=== PATIENT | female | born 1955 | race Caucasian/White ===

== ENCOUNTER → 2020-06-19 12:25 | Outpatient (BNVA) | payer MEDICAID, SELFPAY | PROVIDERS: Visit Provider Physician Assistant | DX: Z86.010 Personal history of colon polyps (principal) | CPT/HCPCS: 99213 ==

== ENCOUNTER 2020-11-30 08:42 | Outpatient (REF) | payer MEDICAID, SELFPAY ==
--- NOTE | ~2020-11-30 | CT_ITS ---
EXAMINATION: CT ABDOMEN AND PELVIS WITH CONTRAST CLINICAL INFORMATION: Epigastric pain and weight loss COMPARISON: CT August 2018 TECHNIQUE: Multidetector volumetric images were obtained from the superior aspect of the liver through the pubic symphysis following administration 85 mL of Omnipaque 350 intravenous contrast. Sagittal and coronal reformatted images were obtained on the technologist's workstation. Oral contrast: No This CT examination was performed using dose optimization techniques as appropriate, variously including the following: *Automated exposure control *Adjustment of mA and/or kV according to patient size (this includes techniques or standardized protocols for targeted exams where dose is matched to indication/reason for exam; i.e. extremities or head) *Use of iterative reconstruction technique DLP: 383 mGy-cm FINDINGS: LUNG BASES: Minimal pleural thickening in the posterior aspect of the left lower lobe likely postinflammatory without clinical significance. LIVER, GALLBLADDER, AND BILIARY TREE: The liver parenchyma is normal no masses. Normal density. No change. No intrahepatic or extrahepatic biliary dilatation. Gallbladder normal. PANCREAS: Unremarkable. SPLEEN: Unremarkable. ADRENAL GLANDS: Unremarkable. KIDNEYS AND URETERS: The kidneys are normal in size, shape, and attenuation. No hydronephrosis, hydroureter, or calculi seen. No perinephric stranding. BLADDER: Unremarkable. GASTROINTESTINAL TRACT: Appendix not visualized.: Normal. Small bowel normal. Stomach normal. ABDOMINAL WALL: No significant hernia is appreciated. LYMPH NODES: Normal. VASCULAR: Mild calcific atherosclerotic disease unchanged PELVIC VISCERA: Unremarkable. OSSEOUS STRUCTURES: Stable postoperative changes related to lower lumbar sacral fusion unchanged. Mild multilevel spondylosis of the visualized lumbar sacral spine above the level of fusion. CT/CT abdomen pelvis w con IMPRESSION: No acute abnormality or explanation for patient's reported symptoms. Mild calcific atherosclerotic disease. Postoperative changes of the lumbar sacral spine with spondylosis
[2020-11-30] MEDS: Barium Sulfate Oral (Berry) 450 ML ORAL.SUSP 900 ML PO (11:54)
== END 2020-11-30 08:43 | disposition home or self-care (01) ==
LOC: HO.CT 08:42
PROVIDERS: Visit Provider Internal Medicine
DX: R10.13 Epigastric pain (principal)
CPT/HCPCS: 74177; Q9967

== ENCOUNTER → 2021-02-22 08:31 | Outpatient (BNVA) | payer MEDICAID, SELFPAY | PROVIDERS: PCP Internal Medicine; Referring Provider Internal Medicine; Visit Provider Physician Assistant | DX: Z12.11 Encounter for screening for malignant neoplasm of colon (principal); K59.09 Other constipation; K21.9 Gastro-esophageal reflux disease without esophagitis; Z86.010 Personal history of colon polyps | CPT/HCPCS: 99202 ==

== ENCOUNTER 2021-05-29 08:35 | Outpatient (REF) | payer MEDICAID, SELFPAY ==
--- NOTE | ~2021-05-29 | US_ITS ---
EXAMINATION: US ABDOMEN COMPLETE CLINICAL INFORMATION: Epigastric pain. COMPARISON: CT abdomen and pelvis 11/30/2020. Ultrasound abdomen 09/25/2017. TECHNIQUE: Real-time imaging of the abdominal viscera. FINDINGS: PANCREAS: Normal. ABDOMINAL AORTA: The proximal, mid, and distal segments are normal in caliber. INFERIOR VENA CAVA: Visualized portions are normal. LIVER: The liver is normal in size. The liver contour is normal. Liver echotexture is increased probably representing fatty infiltration. No focal hepatic lesion. There is no intrahepatic biliary duct dilatation seen. GALLBLADDER: Normal. The gallbladder is physiologically distended without evidence of stones, sludge, polyps, wall thickening or pericholecystic fluid. COMMON BILE DUCT: Normal in caliber measuring 0.3 cm in diameter. RIGHT KIDNEY: Normal. No hydronephrosis. No renal calculi or focal parenchymal lesions. The kidney measures 12.4 cm in maximum dimension. LEFT KIDNEY: Normal. No hydronephrosis. No renal calculi or focal parenchymal lesions. The kidney measures 12.1 cm in maximum dimension. SPLEEN: Normal. The spleen measures 12.3 cm in maximum dimension. FREE FLUID: None. US/US abdomen complete IMPRESSION: Echogenic liver suggestive of fatty infiltration otherwise unremarkable exam.
== END 2021-05-29 08:36 | disposition home or self-care (01) ==
LOC: HO.US 08:35
PROVIDERS: PCP Internal Medicine; Visit Provider Student in an Organized Health Care Education/Training Program
DX: R10.13 Epigastric pain (principal)
CPT/HCPCS: 76700

== ENCOUNTER 2021-08-09 10:28 | Outpatient (REF) | payer MEDICAID, SELFPAY ==
--- NOTE | ~2021-08-09 | US_ITS ---
EXAMINATION: US PELVIS LIMITED (BLADDER) CLINICAL INFORMATION: Urinary retention. Need postvoid bladder volume. COMPARISON: CT abdomen and pelvis 11/30/2020. TECHNIQUE: Real-time imaging of the bladder. FINDINGS: BLADDER: Well distended and normal. Bilateral ureteral jets are not demonstrated. No intraluminal filling defects are detected. Prevoid bladder volume is 187.7 mL. Postvoid bladder volume is 16.2 mL. US/US bladder IMPRESSION: Normal bladder ultrasound with a minimal post void residual.
== END 2021-08-09 10:29 | disposition home or self-care (01) ==
LOC: HO.US 10:28
PROVIDERS: PCP Internal Medicine; Visit Provider Internal Medicine
DX: R33.9 Retention of urine, unspecified (principal)
CPT/HCPCS: 76857

== ENCOUNTER 2021-10-23 16:45 | Emergency (ER) | payer OTHER, MEDICAID, SELFPAY ==
--- NOTE | ~2021-10-23 | XR_ITS ---
EXAMINATION: XR ABDOMEN KUB CLINICAL INDICATION: Constipation COMPARISON: CT abdomen 11/30/2020 TECHNIQUE: AP view of the abdomen. FINDINGS: There is a moderate stool burden in the colon. The bowel gas pattern is normal with no evidence of ileus or obstruction. No unusual soft tissue calcifications are noted. There is been fixation in the spine with pedicular screws at L4 and S1. Disc spacers are present at the L4-L5 and L5-S1 levels. XR/XR KUB IMPRESSION: Moderate stool burden without evidence of obstruction. Status post lumbar spine surgery.
[2021-10-23 18:03] VITALS: BP 147/81; PULSE 80; RESP 18; TEMP 36.8; O2SAT 99; BMI 25.7
[2021-10-23 19:29] LABS: MANUAL DIFF FLAG NO
[2021-10-23 19:31] LABS: Appearance Urine CLEAR; Basophils Percent Auto 0.2 % (0-2); Color Urine YELLOW; Eosinophils Absolute Auto 0.4 X10*3/uL (0.0-0.4); Eosinophils Percent Auto 3.2 % (0-4); Glucose Urine UA NEG (NEG); Hematocrit 39.4 % (37.0-47.0); Hemoglobin 12.7 g/dl (12.0-16.0); Imm Gran Abs Auto 0.03 X10*3/uL (0.00-0.03); Imm Gran Pct Auto 0.2 % (0.0-0.4); Leukocyte Esterase Urine NEG (NEG); Lymphocytes Absolute Auto 4.4 X10*3/uL (1.2-4.9); Lymphocytes Percent Auto 36.6 % (20-40); Mean Corpuscular HGB Conc 32.2 g/dl (31.0-35.0); Mean Corpuscular Hemoglobin 27.6 pg (27.0-33.0); Mean Corpuscular Volume 85.7 fL (80.0-98.0); Mean Platelet Volume 9.7 fL (9.4-12.3); Monocytes Absolute Auto 0.7 X10*3/uL (0.1-1.2); Monocytes Percent Auto 5.4 % (2-11); Neutrophils Absolute Auto 6.5 x10*3/uL (2.0-8.3); Neutrophils Percent Auto 54.4 % (45-73); Nitrite Urine NEG (NEG); Platelet Count 298 X10*3/uL (160-400); Red Cell Distribution Width 13.3 % (11.0-16.0); Specific Gravity - Urine >= 1.030 (1.005-1.025); UACC Culture Trigger NO; Urine Blood TRACE (NEG); Urine Ketones 5 MG/DL (NEG); Urine Protein 2+ MG/DL (NEG-TRACE)
[2021-10-23 19:45] LABS: Anion Gap 13 (12-20); Blood Urea Nitrogen 12 mg/dL (9-16); Carbon Dioxide 28 mmol/L (22-29); Chloride 102 mmol/L (96-108); Creatinine Clr Calc Pharmacy 65.6; Estimated Glomerular Filt Rate > 60; Glucose Random 174 mg/dL (60-115); Lipase 45 U/L (8-78); Potassium 4.1 mmol/L (3.3-5.1); Sodium 139 mmol/L (135-145)
[2021-10-23 19:49] LABS: COVID-19 Test Negative (Negative)
[2021-10-23 19:52] LABS: RBC Urine 0-2 /HPF (0); Squamous Epithelial Cell Urine 1+ /LPF; WBC Urine 0-2 /HPF (0-4)
[2021-10-23 19:53] LABS: Mucus Urine 3+ /LPF
== END 2021-10-23 21:12 | disposition left against medical advice (07) ==
PROVIDERS: Emergency Provider Emergency Medicine
DX: R11.10 Vomiting, unspecified (principal); R10.9 Unspecified abdominal pain; R51.9 Headache, unspecified; Z20.822 Contact with and (suspected) exposure to COVID-19; Z79.899 Other long term (current) drug therapy
CPT/HCPCS: 36415; 74018; 80048; 81001; 83690; 85025; 87635; 99282; 99283

== ENCOUNTER 2021-10-25 14:44 | Emergency (ER) | payer OTHER, SELFPAY ==
--- NOTE | ~2021-10-25 | CT_ITS ---
EXAMINATION: CT ABDOMEN AND PELVIS WITH CONTRAST CLINICAL INFORMATION: Left lower quadrant pain, bloated, constipation. Rule out bowel obstruction. COMPARISON: None TECHNIQUE: Multidetector volumetric images were obtained from the superior aspect of the liver through the pubic symphysis following administration 85 mL of Omnipaque 350 intravenous contrast. Sagittal and coronal reformatted images were obtained on the technologist's workstation. Oral contrast: No This CT examination was performed using dose optimization techniques as appropriate, variously including the following: *Automated exposure control *Adjustment of mA and/or kV according to patient size (this includes techniques or standardized protocols for targeted exams where dose is matched to indication/reason for exam; i.e. extremities or head) *Use of iterative reconstruction technique DLP: 570 mGy-cm FINDINGS: LUNG BASES: Minimal atelectatic changes seen in left lung base and right middle lobe. Heart size is normal. LIVER, GALLBLADDER, AND BILIARY TREE: The liver is normal in size, shape, and attenuation. No focal hepatic lesion or biliary ductal dilatation is present. The gallbladder is unremarkable with no evidence of radiopaque gallstones, gallbladder wall thickening, or obvious pericholecystic inflammatory changes. PANCREAS: Unremarkable. SPLEEN: Unremarkable. ADRENAL GLANDS: There is a 4 mm nodule right adrenal gland. The left adrenal gland is unremarkable. KIDNEYS AND URETERS: The kidneys are normal in size, lobulated shape, and attenuation. There is bilateral extrarenal kidney pelvises, hydroureter, or calculi seen. There is mild perinephric stranding. BLADDER: Unremarkable. GASTROINTESTINAL TRACT: The small and large bowel are unremarkable. The appendix is unremarkable. ABDOMINAL WALL: No significant hernia is appreciated. LYMPH NODES: Normal. VASCULAR: Unremarkable. PELVIC VISCERA: Unremarkable. OSSEOUS STRUCTURES: There is L4-S1 disc hardware for fusion as well as posterior hardware for stabilization. No aggressive lytic or sclerotic process seen. CT/CT abdomen pelvis w con IMPRESSION: No acute intra-abdominal process seen. Suspect small right adrenal 4 mm lesion. Fleischner guidelines were followed.
[2021-10-25 14:47] VITALS: BP 195/95; PULSE 101; RESP 18; TEMP 36.8; O2SAT 95; BMI 27.1
[2021-10-25 15:10] LABS: Basophils Absolute Auto 0.1 X10*3/uL (0.0-0.2); Basophils Percent Auto 0.3 % (0-2); Eosinophils Absolute Auto 0.3 X10*3/uL (0.0-0.4); Eosinophils Percent Auto 1.9 % (0-4); Hematocrit 42.1 % (37.0-47.0); Hemoglobin 13.3 g/dl (12.0-16.0); Imm Gran Abs Auto 0.07 X10*3/uL (0.00-0.03); Imm Gran Pct Auto 0.5 % (0.0-0.4); Lymphocytes Absolute Auto 5.1 X10*3/uL (1.2-4.9); Lymphocytes Percent Auto 34.2 % (20-40); MANUAL DIFF FLAG SCAN; Mean Corpuscular HGB Conc 31.6 g/dl (31.0-35.0); Mean Corpuscular Hemoglobin 27.3 pg (27.0-33.0); Mean Corpuscular Volume 86.4 fL (80.0-98.0); Mean Platelet Volume 9.8 fL (9.4-12.3); Monocytes Absolute Auto 0.9 X10*3/uL (0.1-1.2); Monocytes Percent Auto 5.8 % (2-11); Neutrophils Absolute Auto 8.6 x10*3/uL (2.0-8.3); Neutrophils Percent Auto 57.3 % (45-73); Platelet Count 335 X10*3/uL (160-400); Red Blood Count 4.87 X10*6/uL (4.20-5.50); Red Cell Distribution Width 13.2 % (11.0-16.0); SCAN SMEAR FLAG 1; White Blood Count 14.9 X10*3/uL (4.8-10.8)
[2021-10-25 15:24] LABS: Alanine Aminotransferase 45 U/L (0-31); Albumin Level 4.5 g/dL (3.5-5.0); Alkaline Phosphatase 72 U/L (39-117); Anion Gap 19 (12-20); Aspartate Amino Transferase 46 U/L (5-31); Bilirubin Direct 0.2 mg/dL (0.0-0.5); Bilirubin Total 0.4 mg/dL (0.0-1.0); Blood Urea Nitrogen 11 mg/dL (9-16); Calcium 10.7 mg/dL (8.4-10.2); Carbon Dioxide 23 mmol/L (22-29); Chloride 100 mmol/L (96-108); Creatinine Clr Calc Pharmacy 66.5; Estimated Glomerular Filt Rate > 60; Glucose Random 120 mg/dL (60-115); Lipase 35 U/L (8-78); Sodium 138 mmol/L (135-145); Total Protein 7.3 g/dL (6.5-8.0)
[2021-10-25 15:34] LABS: SLIDE REVIEW VERIFIED
--- NOTE | 2021-10-25 16:56 | ED.ABDPAIN ---
HPI - Abdominal Pain General Chief Complaint: Abdominal Pain Stated Complaint: ABD PAIN Time Seen by Provider: 10/25/21 16:10 Source: patient Mode of arrival: ambulatory Limitations: language barrier (Lebanese speaking, does understand some Lithuanian, sleeve bottom feller used) History of Present Illness HPI narrative: 66-year-old female who presents emergency department for evaluation of abdominal pain, bloating, constipation, unable to eat or drink, weight loss x3 weeks the patient states that she has been having constant abdominal pain for approximately 3 weeks. She states the pain feels as if ?someone is eating meat from the inside out ?. She states the pain is located throughout her entire abdomen but is worse than the left lower quadrant aspect of her abdomen. She states that the pain is greater than 10/10. She has associated nausea with no vomiting. She states she feels very bloated as if she were ?9 months ?. She states that she is not able to eat or drink. She states she has lost 12 lb over the last 3 weeks. She also has a history of migraines and states she currently is having a migraine headache, she describes this is a constant, throbbing sensation located throughout her entire head which is 8/10 at its worse, the pain is exacerbated by bright lights and loud noises. This is consistent with her migraine headaches. She denied fever, chills, chest pain, shortness of breath, frequency, urgency or dysuria. Patient's last GI no was on 02/22/2021, at that time the patient was seen for chronic constipation, chronic abdominal pain (left lower quad) with abdominal bloating. The note states the patient has a history of adenomatous colonic polyps. It is unclear to me from this note if the patient had a follow-up colonoscopy. Related Data Home Medications Medication Instructions Recorded Confirmed atorvastatin 40 mg tablet 40 mg PO DAILY 05/30/20 03/28/21 cholecalciferol (vitamin D3) 50 50 mcg PO DAILY 05/30/20 03/28/21 mcg (2,000 unit) tablet (Vitamin D3) clonazepam 1 mg tablet 1 mg PO BEDTIME 05/30/20 03/28/21 estradiol (Estrace) 1 g VAGINAL 3XW 05/30/20 03/28/21 glyburide 5 mg-metformin 500 mg 1 tab PO BID 05/30/20 03/28/21 tablet insulin glargine 100 unit/mL 64 unit SUBCUT QAM 05/30/20 03/28/21 subcutaneous solution (Lantus U-100 Insulin) losartan 50 mg tablet 50 mg PO DAILY 05/30/20 03/28/21 mirtazapine 7.5 mg tablet 7.5 mg PO BEDTIME 05/30/20 03/28/21 multivitamin 1 tab PO DAILY 05/30/20 03/28/21 polyvinyl alcohol 1.4 % eye drops 1 drp OPHTHALMIC (EYE) DAILY 05/30/20 03/28/21 prazosin 5 mg capsule 5 mg PO BEDTIME 05/30/20 03/28/21 quetiapine 200 mg tablet 200 mg PO BEDTIME 05/30/20 03/28/21 sitagliptin 100 mg tablet (Januvia) 100 mg PO DAILY 05/30/20 03/28/21 trazodone 150 mg tablet 150 mg PO BEDTIME 05/30/20 03/28/21 venlafaxine 37.5 mg tablet 37.5 mg PO DAILY 05/30/20 03/28/21 sennosides 8.6 mg capsule (senna) 8.6 mg PO BEDTIME 02/22/21 03/28/21 Previous Rx's Medication Instructions Recorded bisacodyl 10 mg rectal suppository 10 mg AL DAILY PRN #20 ea 02/22/21 (Dulcolax (bisacodyl)) omeprazole 20 mg capsule,delayed 20 mg PO DAILY #30 cap 02/22/21 release peg-electrolyte solution 420 gram 240 ml PO ONCE 1 Days #4000 ml 02/22/21 oral solution (TriLyte With Flavor Packets) polyethylene glycol 3350 17 17 g PO DAILY #510 g 02/22/21 gram/dose oral powder (Miralax) simethicone 125 mg chewable tablet 125 mg PO TID-QID PRN #90 tab 02/22/21 (Gas Relief (simethicone)) docusate sodium 100 mg capsule 200 mg PO BEDTIME #60 cap 08/20/21 methylcellulose (laxative) 500 mg 500 mg PO BID #60 tab 08/28/21 tablet (Fiber Laxative (methylcellulose)) lactulose 10 gram/15 mL (15 mL) 20 g (30 mL) PO BID PRN #600 ml 10/25/21 oral solution Allergies Allergy/AdvReac Type Severity Reaction Status Date / Time Penicillins [PENICILLINS] Allergy Intermediate ITCH/RASH Verified 10/25/21 14:46 sulfamethoxazole Allergy Intermediate RASH Verified 10/25/21 14:46 [From Bactrim] sumatriptan Allergy Intermediate rash Verified 10/25/21 14:46 trimethoprim [From Bactrim] Allergy Intermediate RASH Verified 10/25/21 14:46 pepperoni Allergy Intermediate rash Uncoded 03/28/21 09:52 Review of Systems Review of Systems Yes all other systems are reviewed and are negative [facility] Past Medical History Medical History Abnormal colonoscopy Anxiety Colon adenomas Depression Diabetes mellitus Gastroenteritis History of hyperopia History of lipoma Hyperlipidemia Hypertension Insomnia Irritable bowel syndrome with constipation Memory impairment Myalgia and myositis Nausea & vomiting Urinary incontinence Surgical History History of back surgery History of esophagogastroduodenoscopy (EGD) Hx of cataract extraction Hx of colonoscopy Hx of foot surgery Hx of right breast biopsy Hx of total hysterectomy Social History Social History Household Members: Family Alcohol intake: never Patient Tobacco Use Status: Never used Tobacco Advance Directives: No Advance Directives Information Provided: No Current occupational status: disabled Physical Exam ED Vital Signs: Vital Signs - 24 hr 10/25/21 14:47 10/25/21 18:00 10/25/21 19:06 Temperature 98.3 F 97.9 F Pulse Rate 101 H 80 77 Respiratory Rate 18 18 16 Blood Pressure 195/95 H 161/84 H 167/85 H Pulse Oximetry 95 95 99 BMI result Body Mass Index 27.1 Const General: cooperative and no acute distress Orientation/consciousness: oriented to person and oriented to place Limitations: no limitations HENMT Head: Yes normal to inspection, Yes normocephalic and Yes atraumatic Ears: external ears normal General nose exam: Normal external nose present Face and sinus: Yes normal facial exam Mouth: Normal oral and palatal mucosa present Throat: Yes posterior oropharynx normal Eyes General: appearance normal, both eyes and all related structures Pupils: Equal, round and reactive pupils present Neck Neck: Yes normal visual inspection, Yes no lymphadenopathy, Yes trachea midline and Yes supple Chest Chest palpation & inspection: normal inspection of the chest and normal palpation of entire chest wall Resp Effort & Inspection: normal respiratory effort and able to speak in complete sentences Auscultation: clear to auscultation bilaterally Cardio Rate: regular rate Rhythm: regular rhythm Heart sounds: S1 normal heart sound present, S2 normal heart sound present and no murmurs GI Other: Abdomen is obese, she does appear to be distended, she has a normoactive bowel sounds, she has [id number] diffuse abdominal tenderness with moderate to severe tenderness in the left upper and left lower quadrants of her abdomen. General: Yes no CVA tenderness Back/Spine/Pelvis Back: no CVA tenderness Skin General skin exam: no rashes or lesions noted Neuro General: oriented to person and oriented to place Cranial nerves: Yes CN's II-XII intact bilaterally and Yes Equal, round and reactive pupils present Cognition (Neuro): normal cognition Motor exam (neuro): 5/5 motor strength present throughout Extrem General: Yes normal to inspection Psych Appearance: grossly normal Speech and movement: Normal speech and movement present Affect: normal affect Attitude: cooperative Thought process: Normal thought process present Thought content: Normal thought content present Course Course Course Narrative: 66-year-old female who presents emergency department for evaluation of 3 weeks of abdominal pain, abdominal bloating, nausea, loss of appetite, weight loss. The patient has a history of chronic abdominal pain and does also have a history of chronic constipation. She has had colonoscopies in the past with multiple adenomas. Vital signs revealed an elevated blood pressure 195/95 with an elevated pulse of 108 otherwise were unremarkable. examination today revealed an obese distended abdomen which had a [id number] diffuse tenderness with moderate to severe left-sided tenderness. Laboratory evaluation was ordered. CT scan of the abdomen pelvis with IV contrast will also be obtained. 1714: Laboratory evaluation: Elevated WBC 14,900. Elevated AST and ALT 46 and 45. COVID-19 was negative. Glucose was elevated at 120. 1953: The patient's CT scan abdomen pelvis with IV contrast did not reveal a clear cause for her pain. She had incidental 4 mm right adrenal lesion and I did discuss this with her, she should discuss follow-up CT scan in 3-6 months with her PCP. The patient's abdominal pain is most likely secondary to chronic pain and constipation. Patient is taking a laxative and stool softener. She was given a prescription for lactulose 30 cc twice a day for 4 days and then as needed for constipation. She was given printed and verbal instructions and discharged home. MDM - Abdominal Pain Lab Data Result diagrams: 10/25/21 14:55 10/25/21 14:55 Labs: Lab Results 10/25/21 10/25/21 Range/Units 14:55 14:55 WBC 14.9 H (4.8-10.8) X10*3/uL RBC 4.87 (4.20-5.50) X10*6/uL Hgb 13.3 (12.0-16.0) g/dl Hct 42.1 (37.0-47.0) % MCV 86.4 (80.0-98.0) fL MCH 27.3 (27.0-33.0) pg MCHC 31.6 (31.0-35.0) g/dl RDW 13.2 (11.0-16.0) % Plt Count 335 (160-400) X10*3/uL MPV 9.8 (9.4-12.3) fL Immature Gran % (Auto) 0.5 H (0.0-0.4) % Neut % (Auto) 57.3 (45-73) % Lymph % (Auto) 34.2 (20-40) % Alfalfa % (Auto) 5.8 (2-11) % Eos % (Auto) 1.9 (0-4) % Baso % (Auto) 0.3 (0-2) % Lymph # (Auto) 5.1 H (1.2-4.9) X10*3/uL Alfalfa # (Auto) 0.9 (0.1-1.2) X10*3/uL Eos # (Auto) 0.3 (0.0-0.4) X10*3/uL Baso # (Auto) 0.1 (0.0-0.2) X10*3/uL Abs Immat Gran (auto) 0.07 H (0.00-0.03) X10*3/uL Absolute Neuts (auto) 8.6 H (2.0-8.3) x10*3/uL Absolute Nucleated RBC 0.000 (0.0-0.012) X10*3/uL Nucleated RBC % (auto) 0.0 (0.0-0.2) /100WBC Smear Tech's Comments VERIFIED Sodium 138 (135-145) mmol/L Potassium 4.0 (3.3-5.1) mmol/L Chloride 100 (96-108) mmol/L Carbon Dioxide 23 (22-29) mmol/L Anion Gap 19 (12-20) BUN 11 (9-16) mg/dL Creatinine 0.82 (0.5-1.4) mg/dL Estim Creat Clear Calc 66.5 Estimated GFR > 60 Random Glucose 120 H (60-115) mg/dL Calcium 10.7 H D (8.4-10.2) mg/dL Total Bilirubin 0.4 (0.0-1.0) mg/dL Direct Bilirubin 0.2 (0.0-0.5) mg/dL AST 46 H (5-31) U/L ALT 45 H (0-31) U/L Alkaline Phosphatase 72 (39-117) U/L Total Protein 7.3 (6.5-8.0) g/dL Albumin 4.5 (3.5-5.0) g/dL Lipase 35 (8-78) U/L Discharge Plan Discharge Clinical Impression: Constipation Abdominal pain Qualifiers: Abdominal location: left lower quadrant Qualified Code(s): R10.32 - Left lower quadrant pain Patient Disposition: Home, Self-Care Instructions: Constipation (ED) Additional Instructions: Your laboratory evaluation was unremarkable. The CT scan of your abdomen pelvis did not reveal a clear cause for your abdominal pain. You do have an incidental finding which is not causing your pain. You have a 4 mm right adrenal gland lesion. You should discuss this with your doctor and have a repeat CT scan in 3-6 months to follow this lesion. Continue taking your medications for constipation as prescribed by your doctors. I am prescribing lactulose 30 mL twice a day as needed for constipation. I want you to take this into you have a good bowel movement and then stop the medication and use it as needed. This medication can cause diarrhea but I think if you move your bowels will feel better. Follow-up with your doctor in 2 days. Please return to the emergency department if your symptoms get worse or if you develop any symptoms that are concerning to you. Prescriptions: New lactulose 10 gram/15 mL (15 mL) solution 20 g PO BID PRN (Reason: constipation) Qty: 600 0RF No Action docusate sodium 100 mg capsule 200 mg PO BEDTIME Qty: 60 5RF Fiber Laxative (methylcellulo) 500 mg tablet 500 mg PO BID Qty: 60 5RF multivitamin Tablet 1 tab PO DAILY 0RF losartan 50 mg Tablet 50 mg PO DAILY 0RF atorvastatin 40 mg Tablet 40 mg PO DAILY 0RF polyvinyl alcohol [Artificial Tears Plus] 1.4 % Drops 1 drp OPHTHALMIC (EYE) DAILY 0RF quetiapine 200 mg Tablet 200 mg PO BEDTIME 0RF clonazepam 1 mg Tablet 1 mg PO BEDTIME 0RF prazosin 5 mg Capsule 5 mg PO BEDTIME 0RF venlafaxine 37.5 mg Tablet 37.5 mg PO DAILY 0RF trazodone 150 mg Tablet 150 mg PO BEDTIME 0RF estradiol [Estrace] 0.01 % (0.1 mg/gram) Cream 1 g VAGINAL 3XW 0RF mirtazapine 7.5 mg Tablet 7.5 mg PO BEDTIME 0RF Januvia 100 mg Tablet 100 mg PO DAILY 0RF cholecalciferol (vitamin D3) [Vitamin D3] 50 mcg (2,000 unit) Tablet 50 mcg PO DAILY 0RF glyburide-metformin 5-500 mg Tablet 1 tab PO BID 0RF Lantus U-100 Insulin 100 unit/mL Solution 64 unit SUBCUT QAM 0RF senna 8.6 mg capsule 8.6 mg PO BEDTIME 0RF simethicone [Gas Relief (simethicone)] 125 mg tablet,chewable 125 mg PO TID-QID PRN (Reason: abdominal distention) Qty: 90 2RF polyethylene glycol 3350 [Miralax] 17 gram/dose powder 17 g PO DAILY Qty: 510 2RF bisacodyl [Dulcolax (bisacodyl)] 10 mg suppository 10 mg AL DAILY PRN (Reason: constipation) Qty: 20 0RF peg-electrolyte soln [TriLyte With Flavor Packets] 420 gram recon soln 240 ml PO ONCE 1 Days Qty: 4000 0RF Rx Instructions: Start at 6:00pm the evening before procedure, drink one 8oz glass every 15 minutes until complete omeprazole 20 mg capsule,delayed release(DR/EC) 20 mg PO DAILY Qty: 30 5RF Print Language: Lebanese
[2021-10-25] MEDS: Ketorolac Tromethamine 15 MG/ML VIAL IVPUSH (17:25)
[2021-10-25] MEDS: diphenhydrAMINE HCL 50 MG/ML VIAL IVPUSH (17:25)
[2021-10-25] MEDS: 0.9 % Sodium Chloride 1,000 ML 999 ML IV (17:25)
[2021-10-25] MEDS: iohexoL 350 MG/ML 100 ML INFUS..BTL IV (17:45)
[2021-10-25] MEDS: Metoclopramide HCl 10 MG/2 ML VIAL IVPUSH (17:47)
[2021-10-25 18:00] VITALS: BP 161/84; PULSE 80; RESP 18; O2SAT 95
[2021-10-25 19:06] VITALS: BP 167/85; PULSE 77; RESP 16; TEMP 36.6; O2SAT 99
[2021-10-25 20:09] VITALS: BP 152/93; PULSE 73; RESP 16; O2SAT 96
[2021-10-25] MEDS: Morphine Sulfate 4 MG/ML CARTRIDGE IVPUSH (20:13)
== END 2021-10-25 20:21 | disposition home or self-care (01) ==
PROVIDERS: Emergency Provider Emergency Medicine Emergency Medical Services; PCP Internal Medicine
DX: R10.32 Left lower quadrant pain (principal); R93.5 Abnormal findings on diagnostic imaging of other abdominal regions, including retroperitoneum; E27.9 Disorder of adrenal gland, unspecified; E11.9 Type 2 diabetes mellitus without complications; I10 Essential (primary) hypertension; E78.5 Hyperlipidemia, unspecified; Z20.822 Contact with and (suspected) exposure to COVID-19; Z79.02 Long term (current) use of antithrombotics/antiplatelets
CPT/HCPCS: 36415; 74177; 80048; 80076; 83690; 85025; 96361; 96374; 96375; 99284; J1200; J1885; J2270; J2765; Q9967

== ENCOUNTER → 2021-11-07 11:27 | Outpatient (BNVA) | payer OTHER, SELFPAY | PROVIDERS: Referring Provider Internal Medicine; Visit Provider Physician Assistant | DX: Z13.89 Encounter for screening for other disorder (principal) ==

== ENCOUNTER 2021-11-07 12:52 | Emergency (ER) | payer OTHER, SELFPAY ==
--- NOTE | ~2021-11-07 | CT_ITS ---
EXAMINATION: CT ABDOMEN AND PELVIS WITH CONTRAST CLINICAL INFORMATION: Distention with pain and vomiting and constipation. COMPARISON: October 25, 2021 and November 30, 2020 TECHNIQUE: Multidetector volumetric images were obtained from the superior aspect of the liver through the pubic symphysis following administration 85 mL of Omnipaque 350 intravenous contrast. Sagittal and coronal reformatted images were obtained on the technologist's workstation. Oral contrast: No This CT examination was performed using dose optimization techniques as appropriate, variously including the following: *Automated exposure control *Adjustment of mA and/or kV according to patient size (this includes techniques or standardized protocols for targeted exams where dose is matched to indication/reason for exam; i.e. extremities or head) *Use of iterative reconstruction technique DLP: 547 mGy-cm FINDINGS: LUNG BASES: There is scarring noted within the right middle lobe. No pleural or pericardial effusion. Coronary artery calcification is present. LIVER, GALLBLADDER, AND BILIARY TREE: The liver appears to have some degree of diminished density consistent with fatty infiltration. No focal hepatic mass or intrahepatic bile duct dilatation is appreciated. The gallbladder is unremarkable with no evidence of radiopaque gallstones, gallbladder wall thickening, or obvious pericholecystic inflammatory changes. PANCREAS: Unremarkable. SPLEEN: Unremarkable. ADRENAL GLANDS: Unremarkable. KIDNEYS AND URETERS: There is a lobular appearance to the kidneys bilaterally without abnormal mass, calcification, or hydronephrosis. There is bilateral perinephric stranding present. BLADDER: Unremarkable. GASTROINTESTINAL TRACT: No dilated loops of large or small bowel are evident. No free air or free fluid is identified. No pericolonic inflammatory change. The appendix is not visualized. ABDOMINAL WALL: No significant hernia is appreciated. LYMPH NODES: No lymphadenopathy is appreciated. VASCULAR: Portal vein is patent. No abdominal aortic aneurysm. No significant atherosclerotic disease identified. PELVIC VISCERA: Unremarkable. OSSEOUS STRUCTURES: No suspicious destructive bony lesions identified. Patient is status post pedicle screw and rubens fixation of L4 and S1 with disc spaces seen at the L4-L5 and L5-S1 levels. There is some mild endplate irregularity without significant loss of height of L3. This is a chronic finding. CT/CT abdomen pelvis w con IMPRESSION: No specific findings to explain patient's symptoms. No evidence of obstructive uropathy. No evidence of ileus or obstruction. Fleischner guidelines were followed.
[2021-11-07 12:55] VITALS: BP 145/65; PULSE 18; RESP 18; TEMP 36.2; O2SAT 97; BMI 26.6
--- NOTE | 2021-11-07 14:08 | ED_ITS ---
HPI - Abdominal Pain General Chief Complaint: General Medical Stated Complaint: L Flank Pain Time Seen by Provider: 11/07/21 13:18 Source: patient and old records reviewed Mode of arrival: ambulatory Limitations: no limitations History of Present Illness HPI narrative: no BM since 10/24 n/v taking lactulose colace senna without relief unable to pass gas now had CT scan recently 10/25 no acute findings other than small right adrenal lesion she notes she was seen by GI today but she can no longer take the abdominal swelling and bloating MD elicited complaint: abdominal pain Pertinent past history: constipation Onset (ago): week(s) Pain Consistency: constant Location: diffuse Severity: severe Quality: aching and fullness Radiation: none Migration to: no migration Exacerbating factors: movement Relieving factors: nothing Context: history of similar episodes (much milder) Associated symptoms: nausea, vomiting and constipation Treatments prior to arrival: other (see above lactulose colace senna) Related Data Home Medications Medication Instructions Recorded Confirmed atorvastatin 40 mg tablet 40 mg PO DAILY 05/30/20 11/07/21 cholecalciferol (vitamin D3) 50 50 mcg PO DAILY 05/30/20 11/07/21 mcg (2,000 unit) tablet (Vitamin D3) clonazepam 1 mg tablet 1 mg PO BEDTIME 05/30/20 11/07/21 glyburide 5 mg-metformin 500 mg 1 tab PO BID 05/30/20 11/07/21 tablet insulin glargine 100 unit/mL 64 unit SUBCUT QAM 05/30/20 11/07/21 subcutaneous solution (Lantus U-100 Insulin) losartan 50 mg tablet 50 mg PO DAILY 05/30/20 11/07/21 mirtazapine 7.5 mg tablet 7.5 mg PO BEDTIME 05/30/20 11/07/21 multivitamin 1 tab PO DAILY 05/30/20 11/07/21 prazosin 5 mg capsule 5 mg PO BEDTIME 05/30/20 11/07/21 quetiapine 200 mg tablet 200 mg PO BEDTIME 05/30/20 03/28/21 sitagliptin 100 mg tablet (Januvia) 100 mg PO DAILY 05/30/20 11/07/21 trazodone 150 mg tablet 150 mg PO BEDTIME 05/30/20 11/07/21 venlafaxine 37.5 mg tablet 37.5 mg PO DAILY 05/30/20 11/07/21 sennosides 8.6 mg capsule (senna) 8.6 mg PO BEDTIME 02/22/21 11/07/21 metformin 500 mg tablet 500 mg PO BID 11/07/21 11/07/21 Previous Rx's Medication Instructions Recorded omeprazole 20 mg capsule,delayed 20 mg PO DAILY #30 cap 02/22/21 release docusate sodium 100 mg capsule 200 mg PO BEDTIME #60 cap 08/20/21 Allergies Allergy/AdvReac Type Severity Reaction Status Date / Time Penicillins [PENICILLINS] Allergy Intermediate ITCH/RASH Verified 11/07/21 11:42 sulfamethoxazole Allergy Intermediate RASH Verified 11/07/21 11:42 [From Bactrim] sumatriptan Allergy Intermediate rash Verified 11/07/21 11:42 trimethoprim [From Bactrim] Allergy Intermediate RASH Verified 11/07/21 11:42 pepperoni Allergy Intermediate rash Uncoded 11/07/21 11:42 Review of Systems Review of Systems Constitutional : No Weight loss, No Fever, No Chills ENT/Mouth : No sore throat, No Rhinorrhea Eyes: No Swelling, No Redness Cardiovascular : No Chest Pain, No SOB, NoEdema Respiratory : No Cough, No Sputum, No Wheezing Gastrointestinal : Positive Nausea, Positive Vomiting, no Diarrhea, positive abdominal Pain, No Hematochezia, No Melena, pos constipation Genitourinary : No Dysuria, No Urinary Frequency, No Hematuria, No Urgency Musculoskeletal : No joint pain, No Myalgias, No Joint Swelling Skin : No Skin Lesions, No rash Neuro : No Weakness, No Numbness, No Dizziness, No Headache Psych : No Anxiety/Panic, No Depression Heme/Lymph: No Bruising, No Lymphadenopathy Endocrine : No Polyuria, No Polydipsia All other systems reviewed and are negative. [facility] Past Medical History Attestation statement: The following information was validated with the patient. Medical History Abnormal colonoscopy Anxiety Colon adenomas Depression Diabetes mellitus Gastroenteritis History of hyperopia History of lipoma Hyperlipidemia Hypertension Insomnia Irritable bowel syndrome with constipation Memory impairment Myalgia and myositis Nausea & vomiting Urinary incontinence Surgical History History of back surgery History of esophagogastroduodenoscopy (EGD) Hx of cataract extraction Hx of colonoscopy Hx of foot surgery Hx of right breast biopsy Hx of total hysterectomy Social History Social History Household Members: Family Alcohol intake: never Patient Tobacco Use Status: Never used Tobacco Advance Directives: No Advance Directives Information Provided: Yes Current occupational status: disabled Physical Exam ED Vital Signs: Vital Signs - 24 hr 11/07/21 12:55 Temperature 97.2 F Pulse Rate 18 L Respiratory Rate 18 Blood Pressure 145/65 H Pulse Oximetry 97 BMI result Body Mass Index 26.6 Appearance: Alert. Oriented X3. No acute distress. Eyes: Pupils equal, round and reactive to light. ENT: Pharynx normal. Neck: Normal inspection. Neck supple. CVS: Normal heart rate and rhythm. Pulses normal. Respiratory: No respiratory distress. Breath sounds normal. Abdomen: distended with moderate diffuse ttp no rebound Rectum: no fecal impaction felt Skin: Skin warm and dry. Normal skin color. Normal skin turgor. Extremities: No lower extremity edema. No calf ttp Neuro: Oriented X 3. No motor deficit. No sensory deficit. Course Course Course Narrative: signed out to Dr. Best pending CT scan MDM - Abdominal Pain MDM Narrative Medical decision making narrative: 66 yo female with hx of n/v, GERD, constipation, here with abodminal distention and inability to have BM since 10/24 also notes no flatus now with n/v at this time her abdomen is very distended will need labs, IVF, IV ativan for cramping, CT scan for obstruction. Dispo per results and findings. Lab Data Result diagrams: 11/07/21 14:25 11/07/21 14:25 Labs: Lab Results 11/07/21 11/07/21 11/07/21 Range/Units 14:25 14:25 14:26 WBC 14.9 H (4.8-10.8) X10*3/uL RBC 4.91 (4.20-5.50) X10*6/uL Hgb 13.6 (12.0-16.0) g/dl Hct 42.3 (37.0-47.0) % MCV 86.2 (80.0-98.0) fL MCH 27.7 (27.0-33.0) pg MCHC 32.2 (31.0-35.0) g/dl RDW 13.0 (11.0-16.0) % Plt Count 296 (160-400) X10*3/uL MPV 9.8 (9.4-12.3) fL Immature Gran % (Auto) 0.4 (0.0-0.4) % Neut % (Auto) 71.0 (45-73) % Lymph % (Auto) 20.8 (20-40) % [place] % (Auto) 5.8 (2-11) % Eos % (Auto) 1.7 (0-4) % Baso % (Auto) 0.3 (0-2) % Lymph # (Auto) 3.1 (1.2-4.9) X10*3/uL [place] # (Auto) 0.9 (0.1-1.2) X10*3/uL Eos # (Auto) 0.3 (0.0-0.4) X10*3/uL Baso # (Auto) 0.0 (0.0-0.2) X10*3/uL Abs Immat Gran (auto) 0.06 H (0.00-0.03) X10*3/uL Absolute Neuts (auto) 10.6 H (2.0-8.3) x10*3/uL Absolute Nucleated RBC 0.000 (0.0-0.012) X10*3/uL Nucleated RBC % (auto) 0.0 (0.0-0.2) /100WBC Sodium 137 (135-145) mmol/L Potassium 4.4 (3.3-5.1) mmol/L Chloride 101 (96-108) mmol/L Carbon Dioxide 27 (22-29) mmol/L Anion Gap 13 (12-20) BUN 11 (9-16) mg/dL Creatinine 0.77 (0.5-1.4) mg/dL Estim Creat Clear Calc 70.0 Estimated GFR > 60 Random Glucose 171 H (60-115) mg/dL Calcium 10.2 (8.4-10.2) mg/dL Magnesium 1.3 L* (1.6-2.6) mg/dL Total Bilirubin 0.2 (0.0-1.0) mg/dL Direct Bilirubin 0.2 (0.0-0.5) mg/dL AST 40 H (5-31) U/L ALT 54 H (0-31) U/L Alkaline Phosphatase 77 (39-117) U/L Total Protein 6.9 (6.5-8.0) g/dL Albumin 4.3 (3.5-5.0) g/dL Lipase 23 (8-78) U/L COVID-19 (THEE) Negative (Negative) COVID-19 Clin Com See Note Discharge Plan Discharge Clinical Impression: Abdominal pain, Hypomagnesemia Patient Disposition: Still a Patient Prescriptions: No Action docusate sodium 100 mg capsule 200 mg PO BEDTIME Qty: 60 5RF multivitamin Tablet 1 tab PO DAILY 0RF losartan 50 mg Tablet 50 mg PO DAILY 0RF atorvastatin 40 mg Tablet 40 mg PO DAILY 0RF quetiapine 200 mg Tablet 200 mg PO BEDTIME 0RF clonazepam 1 mg Tablet 1 mg PO BEDTIME 0RF prazosin 5 mg Capsule 5 mg PO BEDTIME 0RF venlafaxine 37.5 mg Tablet 37.5 mg PO DAILY 0RF trazodone 150 mg Tablet 150 mg PO BEDTIME 0RF mirtazapine 7.5 mg Tablet 7.5 mg PO BEDTIME 0RF Januvia 100 mg Tablet 100 mg PO DAILY 0RF cholecalciferol (vitamin D3) [Vitamin D3] 50 mcg (2,000 unit) Tablet 50 mcg PO DAILY 0RF glyburide-metformin 5-500 mg Tablet 1 tab PO BID 0RF Lantus U-100 Insulin 100 unit/mL Solution 64 unit SUBCUT QAM 0RF senna 8.6 mg capsule 8.6 mg PO BEDTIME 0RF omeprazole 20 mg capsule,delayed release(DR/EC) 20 mg PO DAILY Qty: 30 5RF metformin 500 mg tablet 500 mg PO BID 0RF
[2021-11-07 14:30] LABS: MANUAL DIFF FLAG NO
[2021-11-07 14:32] LABS: Basophils Percent Auto 0.3 % (0-2); Eosinophils Absolute Auto 0.3 X10*3/uL (0.0-0.4); Eosinophils Percent Auto 1.7 % (0-4); Hematocrit 42.3 % (37.0-47.0); Hemoglobin 13.6 g/dl (12.0-16.0); Imm Gran Abs Auto 0.06 X10*3/uL (0.00-0.03); Imm Gran Pct Auto 0.4 % (0.0-0.4); Lymphocytes Absolute Auto 3.1 X10*3/uL (1.2-4.9); Lymphocytes Percent Auto 20.8 % (20-40); Mean Corpuscular HGB Conc 32.2 g/dl (31.0-35.0); Mean Corpuscular Hemoglobin 27.7 pg (27.0-33.0); Mean Corpuscular Volume 86.2 fL (80.0-98.0); Mean Platelet Volume 9.8 fL (9.4-12.3); Monocytes Absolute Auto 0.9 X10*3/uL (0.1-1.2); Monocytes Percent Auto 5.8 % (2-11); Neutrophils Absolute Auto 10.6 x10*3/uL (2.0-8.3); Platelet Count 296 X10*3/uL (160-400); Red Blood Count 4.91 X10*6/uL (4.20-5.50); White Blood Count 14.9 X10*3/uL (4.8-10.8)
[2021-11-07 14:46] LABS: COVID-19 Test Negative (Negative)
[2021-11-07] MEDS: LORazepam 2 MG/ML VIAL 1 MG IVPUSH (14:47)
[2021-11-07] MEDS: 0.9 % Sodium Chloride 1,000 ML 999 ML IVCONT (14:48)
[2021-11-07] MEDS: ondansetron HCL 4 MG/2 ML VIAL IVPUSH (14:48)
[2021-11-07 14:57] LABS: Alanine Aminotransferase 54 U/L (0-31); Albumin Level 4.3 g/dL (3.5-5.0); Alkaline Phosphatase 77 U/L (39-117); Anion Gap 13 (12-20); Aspartate Amino Transferase 40 U/L (5-31); Bilirubin Direct 0.2 mg/dL (0.0-0.5); Bilirubin Total 0.2 mg/dL (0.0-1.0); Blood Urea Nitrogen 11 mg/dL (9-16); Calcium 10.2 mg/dL (8.4-10.2); Carbon Dioxide 27 mmol/L (22-29); Chloride 101 mmol/L (96-108); Estimated Glomerular Filt Rate > 60; Glucose Random 171 mg/dL (60-115); Lipase 23 U/L (8-78); Magnesium 1.3 mg/dL (1.6-2.6); Potassium 4.4 mmol/L (3.3-5.1); Sodium 137 mmol/L (135-145); Total Protein 6.9 g/dL (6.5-8.0)
[2021-11-07] MEDS: Magnesium Sulfate/H2O 2 GM/50 ML PIGGYBACK IV (15:20)
[2021-11-07] MEDS: iohexoL 350 MG/ML 100 ML INFUS..BTL IV (16:20)
[2021-11-07] MEDS: Acetaminophen 325 MG TABLET 650 MG PO (18:30)
== END 2021-11-07 18:37 | disposition home or self-care (01) ==
PROVIDERS: Emergency Medicine; Emergency Provider Emergency Medicine
DX: R10.9 Unspecified abdominal pain (principal); E83.42 Hypomagnesemia; Z79.899 Other long term (current) drug therapy; Z20.822 Contact with and (suspected) exposure to COVID-19
CPT/HCPCS: 74177; 80048; 80076; 83690; 83735; 85025; 87635; 96361; 96365; 96366; 96375; 99212; 99283; 99284; J2060; J2405; J3475; Q9967

== ENCOUNTER 2021-11-30 14:39 | Inpatient (IN) | payer OTHER, SELFPAY ==
--- NOTE | 2021-11-30 | ECG_ITS ---
Test Reason : MED CLEARANCE Blood Pressure : / mmHG Vent. Rate : 072 BPM Atrial Rate : 072 BPM P-R Int : 148 ms QRS Dur : 092 ms QT Int : 436 ms P-R-T Axes : 063 012 059 degrees QTc Int : 477 ms Normal sinus rhythm Normal ECG When compared with ECG of 25-JAN-2019 11:11, No significant change was found Referred By: Ailyn Akhtar Electronically Signed By:PETTY CORRALES MD
--- NOTE | ~2021-11-30 | CT_ITS ---
EXAMINATION: CT HEAD WITHOUT CONTRAST CLINICAL INFORMATION: New onset psychosis COMPARISON: Previous exam June 2018 TECHNIQUE: Contiguous axial imaging was performed from the skull base to vertex without intravenous administration of contrast. This CT examination was performed using dose optimization techniques as appropriate, variously including the following: *Automated exposure control *Adjustment of mA and/or kV according to patient size (this includes techniques or standardized protocols for targeted exams where dose is matched to indication/reason for exam; i.e. extremities or head) *Use of iterative reconstruction technique DLP: 723 mGy-cm FINDINGS: There is no evidence of acute intracranial hemorrhage or territorial infarction. No abnormal mass effect or midline shift is seen. There is mild nonspecific periventricular white matter disease. No extra-axial fluid collections are identified. The ventricles are normal in size. No mass, mass effect or infarct. The osseous structures and soft tissues are normal. The mastoid air cells and visualized portions of the paranasal sinuses are well aerated. CT/CT head/brain wo con IMPRESSION: No acute findings. Mild nonspecific periventricular white matter disease.
[2021-11-30 15:03] VITALS: BP 180/88; PULSE 80; PULSE 86; RESP 16; TEMP 36.8; O2SAT 97; O2SAT 98; BMI 26.3
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
[2021-11-30 15:55] LABS: Appearance Urine CLEAR; Color Urine YELLOW; Glucose Urine UA >=1000 MG/DL (NEG); Leukocyte Esterase Urine NEG (NEG); Nitrite Urine NEG (NEG); Specific Gravity - Urine >= 1.030 (1.005-1.025); UACC Culture Trigger NO; Urine Blood TRACE (NEG); Urine Ketones 5 MG/DL (NEG); Urine Protein 2+ MG/DL (NEG-TRACE)
[2021-11-30 15:57] VITALS: BP 139/62; PULSE 66
[2021-11-30 16:14] LABS: Amphetamine Screen Urine POSITIVE (Not Detect); Barbiturates, Urine Not Detected (Not Detect); Benzodiazepines Screen Urine POSITIVE (Not Detect); Cannabinoid Screen Urine Not Detected (Not Detect); Cocaine Screen Urine Not Detected (Not Detect); Fentanyl, urine POSITIVE (Not Detect); Opiate Screen Urine Not Detected (Not Detect); Phencyclidine Screen Urine Not Detected (Not Detect)
[2021-11-30 16:27] LABS: COVID-19 Test Negative (Negative); IDNOW Serial# 16C4AD1C
[2021-11-30 16:38] LABS: WBC Urine 0-2 /HPF (0-4)
[2021-11-30 16:39] LABS: RBC Urine 0-2 /HPF (0); Renal Epithelial Cells Urine 1+ /LPF; Squamous Epithelial Cell Urine 1+ /LPF
--- NOTE | 2021-11-30 17:42 | PC.NURSE ---
called for occupational therapy supervisor to complete triage/note and awaiting their arrival
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
[2021-11-30 19:05] LABS: Glucose, Whole Blood 220 mg/dL (60-115)
--- NOTE | 2021-11-30 20:10 | MHC.CARE ---
Pt is an inpatient bedsearch
[2021-11-30 20:17] LABS: MANUAL DIFF FLAG NO
[2021-11-30 20:20] LABS: Basophils Percent Auto 0.4 % (0-2); Eosinophils Absolute Auto 0.2 X10*3/uL (0.0-0.4); Eosinophils Percent Auto 2.2 % (0-4); Hematocrit 38.3 % (37.0-47.0); Hemoglobin 12.4 g/dl (12.0-16.0); Imm Gran Abs Auto 0.02 X10*3/uL (0.00-0.03); Imm Gran Pct Auto 0.2 % (0.0-0.4); Lymphocytes Absolute Auto 3.3 X10*3/uL (1.2-4.9); Lymphocytes Percent Auto 33.5 % (20-40); Mean Corpuscular HGB Conc 32.4 g/dl (31.0-35.0); Mean Corpuscular Volume 86.5 fL (80.0-98.0); Monocytes Absolute Auto 0.7 X10*3/uL (0.1-1.2); Monocytes Percent Auto 6.9 % (2-11); Neutrophils Absolute Auto 5.5 x10*3/uL (2.0-8.3); Neutrophils Percent Auto 56.8 % (45-73); Platelet Count 267 X10*3/uL (160-400); Red Blood Count 4.43 X10*6/uL (4.20-5.50); White Blood Count 9.7 X10*3/uL (4.8-10.8)
[2021-11-30 20:41] LABS: Acetaminophen LAB < 1 mcg/mL (<30); Anion Gap 10 (12-20); Blood Urea Nitrogen 8 mg/dL (9-16); Calcium 9.9 mg/dL (8.4-10.2); Carbon Dioxide 31 mmol/L (22-29); Chloride 100 mmol/L (96-108); Creatinine Clr Calc Pharmacy 69.5; Estimated Glomerular Filt Rate > 60; Glucose Random 317 mg/dL (60-115); Magnesium 1.7 mg/dL (1.6-2.6); Potassium 4.4 mmol/L (3.3-5.1); Salicylate < 5.0 mg/dL (15-30); Sodium 137 mmol/L (135-145)
[2021-11-30 20:42] LABS: Alanine Aminotransferase 45 U/L (0-31); Albumin Level 4.1 g/dL (3.5-5.0); Alkaline Phosphatase 78 U/L (39-117); Aspartate Amino Transferase 36 U/L (5-31); Bilirubin Direct 0.2 mg/dL (0.0-0.5); Bilirubin Total 0.4 mg/dL (0.0-1.0); Total Protein 6.6 g/dL (6.5-8.0)
[2021-11-30 21:01] LABS: TSH reflex Free T4 1.48 uIU/mL (0.32-4.0)
[2021-11-30 22:02] LABS: Glucose, Whole Blood 290 mg/dL (60-115)
[2021-11-30] MEDS: Prazosin HCL 5 MG CAPSULE 10 MG PO (22:56)
[2021-11-30] MEDS: Atorvastatin Calcium 40 MG TABLET PO (22:56)
[2021-11-30] MEDS: QUEtiapine Fumarate 200 MG TABLET PO (22:56)
[2021-11-30] MEDS: lamoTRIgine 100 MG TABLET PO (22:56)
[2021-11-30] MEDS: Docusate Sodium 100 MG CAPSULE 200 MG PO (22:57)
[2021-11-30] MEDS: Mirtazapine 7.5 MG TABLET PO (22:57)
[2021-11-30] MEDS: traZODone HCL 100 MG TABLET 300 MG PO (22:57)
[2021-11-30 23:00] VITALS: BP 178/94; PULSE 68; RESP 16; O2SAT 96
--- NOTE | 2021-12-01 05:53 | PC.NURSE ---
Patient slept through the night, no distress observed/reported, VSS, behavior pleasant and non concerning, medication compliant, disposition per care team is section 12 inpatient bed search, per care team patient is pre-accepted to S1, will continue to monitor.
[2021-12-01] MEDS: Omeprazole 20 MG CAPSULE.DR PO (05:58)
[2021-12-01 06:17] LABS: Glucose, Whole Blood 190 mg/dL (60-115)
[2021-12-01] MEDS: Acetaminophen 325 MG TABLET 650 MG PO ×3 (06:20→20:15)
--- NOTE | 2021-12-01 07:17 | PC.NURSE ---
patient appears to remain at rest at present, respirations are even and unlabored patient appears in no distress
[2021-12-01] MEDS: Insulin Glargine,Hum.rec.anlog 100 UNIT/ML 10 ML VIAL 64 UNIT SUBCUT (08:51)
[2021-12-01] MEDS: Cholecalciferol (Vitamin D3) 25 MCG TABLET 50 MCG PO (08:52)
[2021-12-01] MEDS: Multivitamin TABLET 1 TAB PO (08:52)
[2021-12-01] MEDS: Losartan Potassium 50 MG TABLET PO (08:52)
[2021-12-01] MEDS: SITagliptin Phosphate 100 MG TABLET PO (09:22)
[2021-12-01] MEDS: glyBURIDE 5 MG TABLET PO ×2 (09:22→16:52)
[2021-12-01 10:11] VITALS: BP 151/76; PULSE 74; RESP 16; TEMP 36.8; O2SAT 96
--- NOTE | 2021-12-01 10:31 | MHC.CARE ---
Care team SW met with Pt, who was calm and cooperative. Pt was provided with an explanation surrounding her moving to the Geriatric floor for psychiatric inpatient level of care. Pt was aware and reviewed the CV in [place] and voluntarily signed it. Pt believes that her medication is no longer helping her with her depression which is leading to her SI. Pt also reports that she has trouble falling asleep and staying asleep which leads to her depression.
[2021-12-01 11:50] VITALS: BP 170/90; PULSE 74; RESP 14; TEMP 36.2; O2SAT 98
[2021-12-01] MEDS: clonazePAM 0.5 MG TABLET PO (12:53)
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
[2021-12-01] MEDS: metFORMIN HCl 500 MG TABLET PO (16:52)
[2021-12-01 18:00] VITALS: BP 192/100; PULSE 98; RESP 16; TEMP 35.9; O2SAT 97
[2021-12-01] MEDS: Docusate Sodium 100 MG CAPSULE 200 MG PO (19:55)
[2021-12-01] MEDS: Atorvastatin Calcium 40 MG TABLET PO (19:55)
[2021-12-01] MEDS: QUEtiapine Fumarate 200 MG TABLET PO (19:56)
[2021-12-01] MEDS: lamoTRIgine 100 MG TABLET PO (19:56)
[2021-12-01] MEDS: Mirtazapine 7.5 MG TABLET PO (19:56)
[2021-12-01] MEDS: Sennosides 8.6 MG TABLET PO (19:56)
[2021-12-01] MEDS: traZODone HCL 100 MG TABLET 300 MG PO (19:56)
[2021-12-01] MEDS: Prazosin HCL 5 MG CAPSULE 10 MG PO (19:57)
[2021-12-01 20:16] LABS: Glucose, Whole Blood 231 mg/dL (60-115)
--- NOTE | 2021-12-01 22:31 | PC.NURSE ---
Pt alert and oriented X3, Elevated BP: 192/100, publication editor provider contacted, no new orders given. ordered for 2099 Prazosin be given early. Prazosin given at 1940. Recheck: BP-143/88. Pt sleeping.
[2021-12-02 06:00] VITALS: BP 138/80; PULSE 94; RESP 16; TEMP 36.3; O2SAT 96
[2021-12-02] MEDS: Omeprazole 20 MG CAPSULE.DR PO (06:35)
[2021-12-02 08:06] LABS: Alanine Aminotransferase 42 U/L (0-31); Alkaline Phosphatase 66 U/L (39-117); Anion Gap 14 (12-20); Aspartate Amino Transferase 32 U/L (5-31); Bilirubin Total 0.4 mg/dL (0.0-1.0); Blood Urea Nitrogen 12 mg/dL (9-16); Calcium 10.3 mg/dL (8.4-10.2); Carbon Dioxide 29 mmol/L (22-29); Chloride 100 mmol/L (96-108); Cholesterol 154 mg/dL; Creatinine Clr Calc Pharmacy 64.8; Estimated Glomerular Filt Rate > 60; Glucose Fasting 266 mg/dL (60-99); HDL Cholesterol 42 mg/dL; LDL Cholesterol Calculated 65 mg/dl; Potassium 4.5 mmol/L (3.3-5.1); Sodium 138 mmol/L (135-145); Total Protein 6.4 g/dL (6.5-8.0); Triglycerides 239 mg/dL
[2021-12-02] MEDS: SITagliptin Phosphate 100 MG TABLET PO (08:58)
[2021-12-02] MEDS: Cholecalciferol (Vitamin D3) 25 MCG TABLET 50 MCG PO (08:58)
[2021-12-02] MEDS: Losartan Potassium 50 MG TABLET PO (08:59)
[2021-12-02] MEDS: metFORMIN HCl 500 MG TABLET PO ×2 (08:59→17:23)
[2021-12-02] MEDS: glyBURIDE 5 MG TABLET PO ×2 (08:59→17:24)
[2021-12-02] MEDS: Multivitamin TABLET 1 TAB PO (08:59)
[2021-12-02] MEDS: Insulin Glargine,Hum.rec.anlog 100 UNIT/ML 10 ML VIAL 64 UNIT SUBCUT (09:30)
[2021-12-02 09:49] LABS: Glucose, Whole Blood 303 mg/dL (60-115)
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
[2021-12-02 11:16] LABS: Glucose, Whole Blood 278 mg/dL (60-115)
[2021-12-02 16:22] LABS: Glucose, Whole Blood 178 mg/dL (60-115)
[2021-12-02] MEDS: Insulin Lispro 100 UNIT/ML 3 ML VIAL SUBCUT (16:25)
[2021-12-02] MEDS: Acetaminophen 325 MG TABLET 650 MG PO (17:24)
[2021-12-02] MEDS: Milk of Magnesia 30 ML ORAL.SUSP PO (17:29)
[2021-12-02 18:00] VITALS: BP 149/99; PULSE 72; RESP 16; TEMP 36.8; O2SAT 96
[2021-12-02] MEDS: lamoTRIgine 100 MG TABLET PO (21:15)
[2021-12-02] MEDS: Mirtazapine 7.5 MG TABLET PO (21:15)
[2021-12-02] MEDS: QUEtiapine Fumarate 200 MG TABLET PO (21:16)
[2021-12-02] MEDS: Prazosin HCL 5 MG CAPSULE 10 MG PO (21:16)
[2021-12-02] MEDS: Sennosides 8.6 MG TABLET PO (21:18)
[2021-12-02] MEDS: Docusate Sodium 100 MG CAPSULE 200 MG PO (21:18)
[2021-12-02] MEDS: clonazePAM 0.5 MG TABLET 1.5 MG PO (21:18)
[2021-12-02] MEDS: Atorvastatin Calcium 40 MG TABLET PO (21:58)
[2021-12-02] MEDS: traZODone HCL 100 MG TABLET 300 MG PO (21:59)
[2021-12-03 08:00] VITALS: BP 136/86; PULSE 77; RESP 17; TEMP 36.5; O2SAT 97
[2021-12-03 08:20] LABS: Glucose, Whole Blood 169 mg/dL (60-115)
[2021-12-03 08:40] LABS: Glucose, Whole Blood 265 mg/dL (60-115)
[2021-12-03] MEDS: Insulin Glargine,Hum.rec.anlog 100 UNIT/ML 10 ML VIAL 64 UNIT SUBCUT (08:56)
[2021-12-03] MEDS: SITagliptin Phosphate 100 MG TABLET PO (08:57)
[2021-12-03] MEDS: Insulin Lispro 100 UNIT/ML 3 ML VIAL SUBCUT ×3 (08:57→16:57)
[2021-12-03] MEDS: glyBURIDE 5 MG TABLET PO ×2 (08:57→16:56)
[2021-12-03] MEDS: metFORMIN HCl 500 MG TABLET PO ×2 (08:57→16:56)
[2021-12-03] MEDS: Cholecalciferol (Vitamin D3) 25 MCG TABLET 50 MCG PO (08:57)
[2021-12-03] MEDS: lamoTRIgine 25 MG TABLET PO (08:57)
[2021-12-03] MEDS: Losartan Potassium 50 MG TABLET PO (08:58)
[2021-12-03] MEDS: Multivitamin TABLET 1 TAB PO (08:58)
[2021-12-03] MEDS: Omeprazole 20 MG CAPSULE.DR PO (08:58)
[2021-12-03 11:58] LABS: Glucose, Whole Blood 222 mg/dL (60-115)
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
[2021-12-03 13:12] LABS: Vitamin D 25-OH Total 48.2 ng/mL (>30)
[2021-12-03] MEDS: Acetaminophen 325 MG TABLET 650 MG PO (15:59)
[2021-12-03 16:00] VITALS: PULSE 79
[2021-12-03 16:47] LABS: Glucose, Whole Blood 242 mg/dL (60-115)
[2021-12-03 18:00] VITALS: BP 154/81; PULSE 84; RESP 16; TEMP 36.3; O2SAT 95
[2021-12-03 21:40] LABS: Glucose, Whole Blood 130 mg/dL (60-115)
[2021-12-03] MEDS: traZODone HCL 100 MG TABLET 300 MG PO (22:00)
[2021-12-03] MEDS: Atorvastatin Calcium 40 MG TABLET PO (22:05)
[2021-12-03] MEDS: Docusate Sodium 100 MG CAPSULE 200 MG PO (22:05)
[2021-12-03] MEDS: lamoTRIgine 100 MG TABLET PO (22:07)
[2021-12-03] MEDS: Mirtazapine 7.5 MG TABLET PO (22:07)
[2021-12-03] MEDS: Prazosin HCL 5 MG CAPSULE 10 MG PO (22:08)
[2021-12-03] MEDS: risperiDONE 1 MG TABLET PO (22:09)
[2021-12-03] MEDS: QUEtiapine Fumarate 100 MG TABLET PO (22:09)
[2021-12-03] MEDS: clonazePAM 1 MG TABLET PO (22:11)
[2021-12-03] MEDS: Sennosides 8.6 MG TABLET PO (22:11)
[2021-12-04] MEDS: Omeprazole 20 MG CAPSULE.DR PO (05:54)
[2021-12-04 07:44] LABS: Glucose, Whole Blood 222 mg/dL (60-115)
[2021-12-04 07:45] VITALS: BP 135/62; PULSE 101; RESP 16; TEMP 36.3; O2SAT 92
[2021-12-04 07:56] LABS: Estimated Average Glucose 200 mg/dL; Hemoglobin A1c % 8.6 %
[2021-12-04] MEDS: metFORMIN HCl 500 MG TABLET PO ×2 (07:58→16:49)
[2021-12-04] MEDS: lamoTRIgine 25 MG TABLET PO (07:59)
[2021-12-04] MEDS: glyBURIDE 5 MG TABLET PO ×2 (07:59→16:49)
[2021-12-04] MEDS: SITagliptin Phosphate 100 MG TABLET PO (07:59)
[2021-12-04] MEDS: Cholecalciferol (Vitamin D3) 25 MCG TABLET 50 MCG PO (07:59)
[2021-12-04] MEDS: Multivitamin TABLET 1 TAB PO (08:01)
[2021-12-04] MEDS: Losartan Potassium 50 MG TABLET PO (08:01)
[2021-12-04] MEDS: risperiDONE 1 MG TABLET PO ×2 (08:01→21:19)
[2021-12-04] MEDS: Insulin Glargine,Hum.rec.anlog 100 UNIT/ML 10 ML VIAL 64 UNIT SUBCUT (08:02)
[2021-12-04] MEDS: Insulin Lispro 100 UNIT/ML 3 ML VIAL SUBCUT ×4 (08:02→21:27)
[2021-12-04 11:32] LABS: Folate > 20.0 ng/mL (> or = 4.0); Vitamin B12 532 pg/mL (200-900)
[2021-12-04 11:33] LABS: Glucose, Whole Blood 270 mg/dL (60-115)
--- NOTE | 2021-12-04 13:35 | HO.PSYCHPN ---
Subjective Subjective Date of Service: 12/04/21 Reason For Visit: Depression with SI Subjective Notes: Conditional Voluntary Interim History: Pt reports some difficulty falling and staying asleep last night. She reports peers screaming and she was anxious. She also reports higher dose of clonazepam- she takes 1.5mg p qhs works better than 1mg po qhs. Pt reports feeling less overwhelmed with idea of ex boyfriend coming to her door daily for the past year. She denies SI/HI. Per nursing, she has been visible in the unit, social with peers, smiling. No behavioral concerns. continues to think that this person is coming to her door but cameras were off. Medication Compliance: Yes Side effects from medications: No Review of Systems Acute medical concerns: No Review of Systems Review of Systems no changes from ED Yes all other systems are reviewed and are negative Constitutional: Reports as per HPI Mental Status Exam Mental Status Exam Narrative: Appearance: casually groomed, fair hygiene in NAD Behavior:cooperative psychomotor: no agitation or retardation noted Speech: clear, normal rate/rhythm/volume, spontaneous Thought process: mostly linear Thought content:ex bf coming at night to her house, insists cameras off Mood: good Affect: congruent, non labile SI:denies HI:denies VH/AH: denies Delusions:persecutory delusions Insight/judgment: poor x2 Memory/cog: alert, will do moca. Diagnostics Vital Signs (24Hr): Vital Signs - 24 hr 12/03/21 18:00 12/04/21 07:45 Temperature 97.3 F 97.4 F Pulse Rate 84 101 H Respiratory Rate 16 16 Blood Pressure 154/81 H 135/62 Pulse Oximetry 95 92 BMI result Body Mass Index 26.3 Labs Results: 11/30/21 20:03 12/02/21 07:20 Labs: Laboratory Results - last 48 hr 12/02/21 12/02/21 12/03/21 16:18 20:09 08:35 POC Glucose 178 H 169 H 265 H Estimat Average Glucose Hemoglobin A1c % Vitamin B12 25-OH Vitamin D Total Folate PTH Intact Calcium (PTH Intact) 12/03/21 12/03/21 12/03/21 11:53 12:31 12:31 POC Glucose 222 H Estimat Average Glucose Hemoglobin A1c % Vitamin B12 25-OH Vitamin D Total 48.2 Folate PTH Intact 23 Calcium (PTH Intact) 10.6 H 12/03/21 12/03/21 12/04/21 16:41 21:36 07:11 POC Glucose 242 H 130 H Estimat Average Glucose 200 Hemoglobin A1c % 8.6 Vitamin B12 25-OH Vitamin D Total Folate PTH Intact Calcium (PTH Intact) 12/04/21 12/04/21 12/04/21 07:40 10:09 11:30 POC Glucose 222 H 270 H Estimat Average Glucose Hemoglobin A1c % Vitamin B12 532 25-OH Vitamin D Total Folate > 20.0 PTH Intact Calcium (PTH Intact) Imaging Radiology Impressions: ITS Impressions Head CT 12/03/21 15:53 IMPRESSION: No acute findings. Mild nonspecific periventricular white matter disease. Medications Medications Current Medications Acetaminophen (Acetaminophen 325 Mg Tablet) 650 mg PO Q6H PRN PRN Reason: Headache/Pain Mild Scale (1-3) Last Admin: 12/03/21 15:59 Dose: 650 mg Documented by: Al Hydroxide/Mg Hydroxide (Magnesium Hydrox/Alum Hydrox 30 Ml Oral.Susp) 30 ml PO Q6H PRN PRN Reason: Heartburn/Nausea Atorvastatin Calcium (Atorvastatin Calcium 40 Mg Tablet) 40 mg PO BEDTIME [facility] Last Admin: 12/03/21 22:05 Dose: 40 mg Documented by: Clonazepam (Clonazepam 0.5 Mg Tablet) 0.5 mg PO DAILY PRN PRN Reason: Anxiety Last Admin: 12/01/21 12:53 Dose: 0.5 mg Documented by: Clonazepam (Clonazepam 0.5 Mg Tablet) 1.5 mg PO BEDTIME [facility] Dextrose (Dextrose 50 % 25 Gm/50 Ml Syringe) 25 gm IVPUSH Q15M PRN; Protocol PRN Reason: per Hypoglycemia Standing Ord. Docusate Sodium (Docusate Sodium 100 Mg Capsule) 200 mg PO BEDTIME [facility] Last Admin: 12/03/21 22:05 Dose: 200 mg Documented by: Glucose (Glucose Gel 15 Gm Gel..Gram.) 15 gm PO Q15M PRN; Protocol PRN Reason: per Hypoglycemia Standing Ord. Glyburide (Glyburide 5 Mg Tablet) 5 mg PO BIDWM [facility] Last Admin: 12/04/21 07:59 Dose: 5 mg Documented by: Hydroxyzine HCl (Hydroxyzine Hcl 25 Mg Tablet) 25 mg PO BEDTIME PRN PRN Reason: Anxiety Insulin Glargine (Insulin Glargine,Hum.Rec.Anlog 100 Unit/Ml 10 Ml Vial) 64 unit SUBCUT DAILY [facility] Last Admin: 12/04/21 08:02 Dose: 64 unit Documented by: Insulin Human Lispro (Insulin Lispro 100 Unit/Ml 3 Ml Vial) 0 unit SUBCUT QIDACHS [facility]; Protocol Last Admin: 12/04/21 11:49 Dose: 6 unit Documented by: Lamotrigine (Lamotrigine 100 Mg Tablet) 100 mg PO BEDTIME [facility] Last Admin: 12/03/21 22:07 Dose: 100 mg Documented by: Lamotrigine (Lamotrigine 25 Mg Tablet) 25 mg PO DAILY [facility] Last Admin: 12/04/21 07:59 Dose: 25 mg Documented by: Losartan Potassium (Losartan Potassium 50 Mg Tablet) 50 mg PO DAILY [facility]; Protocol Last Admin: 12/04/21 08:01 Dose: 50 mg Documented by: Magnesium Hydroxide (Milk Of Magnesia 30 Ml Oral.Susp) 30 ml PO DAILY PRN PRN Reason: Constipation Last Admin: 12/02/21 17:29 Dose: 30 ml Documented by: Metformin HCl (Metformin Hcl 500 Mg Tablet) 500 mg PO BIDWM [facility] Last Admin: 12/04/21 07:58 Dose: 500 mg Documented by: Mirtazapine (Mirtazapine 7.5 Mg Tablet) 7.5 mg PO BEDTIME [facility] Last Admin: 12/03/21 22:07 Dose: 7.5 mg Documented by: Multivitamins/Vitamin C (Multivitamin Tablet) 1 tab PO DAILY [facility] Last Admin: 12/04/21 08:01 Dose: 1 tab Documented by: Non-Formulary Medication (Linaclotide [Linzess]) 1 cap PO DAILY [facility] Omeprazole (Omeprazole 20 Mg Capsule.Dr) 20 mg PO DAILY@0630 [facility] Last Admin: 12/04/21 05:54 Dose: 20 mg Documented by: Prazosin HCl (Prazosin Hcl 5 Mg Capsule) 10 mg PO BEDTIME [facility]; Protocol Last Admin: 12/03/21 22:08 Dose: 10 mg Documented by: Quetiapine Fumarate (Quetiapine Fumarate 100 Mg Tablet) 100 mg PO BEDTIME [facility] Last Admin: 12/03/21 22:09 Dose: 100 mg Documented by: Risperidone (Risperidone 1 Mg Tablet) 1 mg PO BID [facility] Last Admin: 12/04/21 08:01 Dose: 1 mg Documented by: Senna (Sennosides 8.6 Mg Tablet) 8.6 mg PO BEDTIME [facility] Last Admin: 12/03/21 22:11 Dose: 8.6 mg Documented by: Sitagliptin Phosphate (Sitagliptin Phosphate 100 Mg Tablet) 100 mg PO DAILY [facility] Last Admin: 12/04/21 07:59 Dose: 100 mg Documented by: Trazodone HCl (Trazodone Hcl 100 Mg Tablet) 300 mg PO BEDTIME [facility] Last Admin: 12/03/21 22:00 Dose: 300 mg Documented by: Vitamin D (Cholecalciferol (Vitamin D3) 25 Mcg Tablet) 50 mcg PO DAILY [facility] Last Admin: 12/04/21 07:59 Dose: 50 mcg Documented by: Allergies Allergies Allergy/AdvReac Type Severity Reaction Status Date / Time Penicillins [PENICILLINS] Allergy Intermediate ITCH/RASH Verified 11/07/21 11:42 sulfamethoxazole Allergy Intermediate RASH Verified 11/07/21 11:42 [From Bactrim] sumatriptan Allergy Intermediate rash Verified 11/07/21 11:42 trimethoprim [From Bactrim] Allergy Intermediate RASH Verified 11/07/21 11:42 pepperoni Allergy Intermediate rash Uncoded 11/07/21 11:42 Assessment & Plan Assessment & Plan (1) Psychosis: Status: Acute Code(s): F29 - Unspecified psychosis not due to a substance or known physiological condition Plan 66 yo woamn wih PTSD, MDD, hx of SI and unstable diabetes. Rule out illicit drug abuse. Plan CV 15 min check will add sliding scale insulin continue current home meds 12/03- started on risperidone 1mg po bid, will complete moca, daughter denies hx of substance use. 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 12/04 continue current medications. I spent ___25___ minutes with the patient and/or on the patient floor today, greater than?50% of which was spent counseling/coordinating care. Reason for contiued inpatient stay Substantial Risk for: inability to function
[2021-12-04 13:47] LABS: Calcium (PTHI) 10.6 mg/dL (8.6-10.4); PTHI 23 pg/mL (16-77)
[2021-12-04 16:00] VITALS: PULSE 104
[2021-12-04 16:46] LABS: Glucose, Whole Blood 269 mg/dL (60-115)
[2021-12-04 20:00] LABS: Glucose, Whole Blood 194 mg/dL (60-115)
[2021-12-04 21:15] VITALS: BP 161/92; PULSE 89; RESP 18; TEMP 36.2; O2SAT 96
[2021-12-04] MEDS: QUEtiapine Fumarate 100 MG TABLET PO (21:17)
[2021-12-04] MEDS: Prazosin HCL 5 MG CAPSULE 10 MG PO (21:18)
[2021-12-04] MEDS: Sennosides 8.6 MG TABLET PO (21:18)
[2021-12-04] MEDS: lamoTRIgine 100 MG TABLET PO (21:19)
[2021-12-04] MEDS: traZODone HCL 100 MG TABLET 300 MG PO (21:19)
[2021-12-04] MEDS: Atorvastatin Calcium 40 MG TABLET PO (21:19)
[2021-12-04] MEDS: Mirtazapine 7.5 MG TABLET PO (21:19)
[2021-12-04] MEDS: Docusate Sodium 100 MG CAPSULE 200 MG PO (21:19)
[2021-12-04] MEDS: clonazePAM 0.5 MG TABLET 1.5 MG PO (21:20)
[2021-12-05] VITALS: PULSE 89
[2021-12-05] LABS: Amphetamine Screen Urine Not Detected (Not Detect); Cannabinoid Screen Urine Not Detected (Not Detect); Cocaine Screen Urine Not Detected (Not Detect); Fentanyl, urine POSITIVE (Not Detect); Opiate Screen Urine Not Detected (Not Detect)
[2021-12-05 03:45] LABS: Syphilis Screen Nonreactive (Nonreactive)
[2021-12-05 06:00] VITALS: BP 153/80; PULSE 95; RESP 17; TEMP 36.4; O2SAT 96
[2021-12-05] MEDS: Omeprazole 20 MG CAPSULE.DR PO (06:19)
[2021-12-05 07:31] LABS: Glucose, Whole Blood 213 mg/dL (60-115)
[2021-12-05] MEDS: Insulin Glargine,Hum.rec.anlog 100 UNIT/ML 10 ML VIAL 64 UNIT SUBCUT (07:40)
[2021-12-05] MEDS: Insulin Lispro 100 UNIT/ML 3 ML VIAL SUBCUT ×3 (07:42→16:43)
[2021-12-05] MEDS: metFORMIN HCl 500 MG TABLET PO ×2 (07:43→16:44)
[2021-12-05] MEDS: Losartan Potassium 50 MG TABLET PO (07:43)
[2021-12-05] MEDS: Multivitamin TABLET 1 TAB PO (07:44)
[2021-12-05] MEDS: Cholecalciferol (Vitamin D3) 25 MCG TABLET 50 MCG PO (07:44)
[2021-12-05] MEDS: lamoTRIgine 25 MG TABLET PO (07:44)
[2021-12-05] MEDS: SITagliptin Phosphate 100 MG TABLET PO (07:44)
[2021-12-05] MEDS: glyBURIDE 5 MG TABLET PO ×2 (07:44→16:44)
[2021-12-05] MEDS: risperiDONE 1 MG TABLET PO ×2 (07:44→20:11)
[2021-12-05 11:48] LABS: Glucose, Whole Blood 272 mg/dL (60-115)
--- NOTE | 2021-12-05 14:19 | HO.PSYCHPN ---
Subjective Subjective Date of Service: 12/05/21 Reason For Visit: Depression with SI Subjective Notes: Conditional Voluntary Interim History: Pt reports sleeping better last night. She reports feeling less frustrated and less overwhelmed with situation with ex bf. She denies SI/HI. She reports feeling less anxious. Per nursing, pt has been visible in the unit, eating well. No behavioral concerns. She has attended assigned groups. completed MOCA 19/30- most impairments in executive function, recall- orientation, language repetition/naming/fluency intact- vascular pattern of cognitive decline. Medication Compliance: Yes Side effects from medications: No Review of Systems Review of Systems no changes from ED Yes all other systems are reviewed and are negative Constitutional: Reports as per HPI Mental Status Exam Mental Status Exam Narrative: Appearance: casually groomed, fair hygiene in NAD Behavior:cooperative psychomotor: no agitation or retardation noted Speech: clear, normal rate/rhythm/volume, spontaneous Thought process: mostly linear Thought content:ex bf coming at night to her house, insists cameras off Mood: good Affect: congruent, non labile SI:denies HI:denies VH/AH: denies Delusions:persecutory delusions Insight/judgment: poor x2 Memory/cog: alert, oriented x 3. completed MOCA on 12/05/21, score 19/30- most impairments in executive function, recall- orientation, language repetition/naming/fluency intact- vascular pattern of cognitive decline. Diagnostics Vital Signs (24Hr): Vital Signs - 24 hr 12/04/21 21:15 12/05/21 06:00 Temperature 97.1 F 97.6 F Pulse Rate 89 95 Respiratory Rate 18 17 Blood Pressure 161/92 H 153/80 H Pulse Oximetry 96 96 BMI result Body Mass Index 26.3 Labs Results: 11/30/21 20:03 12/02/21 07:20 Labs: Laboratory Results - last 48 hr 12/03/21 12/03/21 12/03/21 12:31 16:41 21:36 POC Glucose 242 H 130 H Estimat Average Glucose Hemoglobin A1c % Vitamin B12 Folate PTH Intact 23 Calcium (PTH Intact) 10.6 H Urine Opiates Screen Urine Fentanyl Screen Ur Amphetamines Screen Urine Cocaine Screen U Marijuana (THC) Screen T.pallidum Ab (EIA) 12/04/21 12/04/21 12/04/21 07:11 07:40 10:09 POC Glucose 222 H Estimat Average Glucose 200 Hemoglobin A1c % 8.6 Vitamin B12 Folate PTH Intact Calcium (PTH Intact) Urine Opiates Screen Urine Fentanyl Screen Ur Amphetamines Screen Urine Cocaine Screen U Marijuana (THC) Screen T.pallidum Ab (EIA) Nonreactive 12/04/21 12/04/21 12/04/21 10:09 11:30 16:42 POC Glucose 270 H 269 H Estimat Average Glucose Hemoglobin A1c % Vitamin B12 532 Folate > 20.0 PTH Intact Calcium (PTH Intact) Urine Opiates Screen Urine Fentanyl Screen Ur Amphetamines Screen Urine Cocaine Screen U Marijuana (THC) Screen T.pallidum Ab (EIA) 12/04/21 12/04/21 12/05/21 19:55 20:05 07:28 POC Glucose 194 H 213 H Estimat Average Glucose Hemoglobin A1c % Vitamin B12 Folate PTH Intact Calcium (PTH Intact) Urine Opiates Screen Not Detected Urine Fentanyl Screen POSITIVE H Ur Amphetamines Screen Not Detected Urine Cocaine Screen Not Detected U Marijuana (THC) Screen Not Detected T.pallidum Ab (EIA) 12/05/21 12/05/21 11:43 15:58 POC Glucose 272 H 239 H Estimat Average Glucose Hemoglobin A1c % Vitamin B12 Folate PTH Intact Calcium (PTH Intact) Urine Opiates Screen Urine Fentanyl Screen Ur Amphetamines Screen Urine Cocaine Screen U Marijuana (THC) Screen T.pallidum Ab (EIA) Imaging Radiology Impressions: ITS Impressions Head CT 12/03/21 15:53 IMPRESSION: No acute findings. Mild nonspecific periventricular white matter disease. Medications Medications Current Medications Acetaminophen (Acetaminophen 325 Mg Tablet) 650 mg PO Q6H PRN PRN Reason: Headache/Pain Mild Scale (1-3) Last Admin: 12/03/21 15:59 Dose: 650 mg Documented by: Al Hydroxide/Mg Hydroxide (Magnesium Hydrox/Alum Hydrox 30 Ml Oral.Susp) 30 ml PO Q6H PRN PRN Reason: Heartburn/Nausea Atorvastatin Calcium (Atorvastatin Calcium 40 Mg Tablet) 40 mg PO BEDTIME [facility] Last Admin: 12/04/21 21:19 Dose: 40 mg Documented by: Clonazepam (Clonazepam 0.5 Mg Tablet) 0.5 mg PO DAILY PRN PRN Reason: Anxiety Last Admin: 12/01/21 12:53 Dose: 0.5 mg Documented by: Clonazepam (Clonazepam 0.5 Mg Tablet) 1.5 mg PO BEDTIME [facility] Last Admin: 12/04/21 21:20 Dose: 1.5 mg Documented by: Dextrose (Dextrose 50 % 25 Gm/50 Ml Syringe) 25 gm IVPUSH Q15M PRN; Protocol PRN Reason: per Hypoglycemia Standing Ord. Docusate Sodium (Docusate Sodium 100 Mg Capsule) 200 mg PO BEDTIME [facility] Last Admin: 12/04/21 21:19 Dose: 200 mg Documented by: Glucose (Glucose Gel 15 Gm Gel..Gram.) 15 gm PO Q15M PRN; Protocol PRN Reason: per Hypoglycemia Standing Ord. Glyburide (Glyburide 5 Mg Tablet) 5 mg PO BIDWM [facility] Last Admin: 12/05/21 07:44 Dose: 5 mg Documented by: Hydroxyzine HCl (Hydroxyzine Hcl 25 Mg Tablet) 25 mg PO BEDTIME PRN PRN Reason: Anxiety Insulin Glargine (Insulin Glargine,Hum.Rec.Anlog 100 Unit/Ml 10 Ml Vial) 64 unit SUBCUT DAILY [facility] Last Admin: 12/05/21 07:40 Dose: 64 unit Documented by: Insulin Human Lispro (Insulin Lispro 100 Unit/Ml 3 Ml Vial) 0 unit SUBCUT QIDACHS [facility]; Protocol Last Admin: 12/05/21 11:51 Dose: 6 unit Documented by: Lamotrigine (Lamotrigine 100 Mg Tablet) 100 mg PO BEDTIME [facility] Last Admin: 12/04/21 21:19 Dose: 100 mg Documented by: Lamotrigine (Lamotrigine 25 Mg Tablet) 25 mg PO DAILY [facility] Last Admin: 12/05/21 07:44 Dose: 25 mg Documented by: Losartan Potassium (Losartan Potassium 50 Mg Tablet) 50 mg PO DAILY [facility]; Protocol Last Admin: 12/05/21 07:43 Dose: 50 mg Documented by: Magnesium Hydroxide (Milk Of Magnesia 30 Ml Oral.Susp) 30 ml PO DAILY PRN PRN Reason: Constipation Last Admin: 12/02/21 17:29 Dose: 30 ml Documented by: Metformin HCl (Metformin Hcl 500 Mg Tablet) 500 mg PO BIDWM [facility] Last Admin: 12/05/21 07:43 Dose: 500 mg Documented by: Mirtazapine (Mirtazapine 7.5 Mg Tablet) 7.5 mg PO BEDTIME [facility] Last Admin: 12/04/21 21:19 Dose: 7.5 mg Documented by: Multivitamins/Vitamin C (Multivitamin Tablet) 1 tab PO DAILY [facility] Last Admin: 12/05/21 07:44 Dose: 1 tab Documented by: Omeprazole (Omeprazole 20 Mg Capsule.) 20 mg PO DAILY@0630 [facility] Last Admin: 12/05/21 06:19 Dose: 20 mg Documented by: Prazosin HCl (Prazosin Hcl 5 Mg Capsule) 10 mg PO BEDTIME [facility]; Protocol Last Admin: 12/04/21 21:18 Dose: 10 mg Documented by: Quetiapine Fumarate (Quetiapine Fumarate 100 Mg Tablet) 100 mg PO BEDTIME [facility] Last Admin: 12/04/21 21:17 Dose: 100 mg Documented by: Risperidone (Risperidone 1 Mg Tablet) 1 mg PO BID [facility] Last Admin: 12/05/21 07:44 Dose: 1 mg Documented by: Senna (Sennosides 8.6 Mg Tablet) 8.6 mg PO BEDTIME [facility] Last Admin: 12/04/21 21:18 Dose: 8.6 mg Documented by: Sitagliptin Phosphate (Sitagliptin Phosphate 100 Mg Tablet) 100 mg PO DAILY [facility] Last Admin: 12/05/21 07:44 Dose: 100 mg Documented by: Trazodone HCl (Trazodone Hcl 100 Mg Tablet) 300 mg PO BEDTIME [facility] Last Admin: 12/04/21 21:19 Dose: 300 mg Documented by: Vitamin D (Cholecalciferol (Vitamin D3) 25 Mcg Tablet) 50 mcg PO DAILY [facility] Last Admin: 12/05/21 07:44 Dose: 50 mcg Documented by: Allergies Allergies Allergy/AdvReac Type Severity Reaction Status Date / Time Penicillins [PENICILLINS] Allergy Intermediate ITCH/RASH Verified 11/07/21 11:42 sulfamethoxazole Allergy Intermediate RASH Verified 11/07/21 11:42 [From Bactrim] sumatriptan Allergy Intermediate rash Verified 11/07/21 11:42 trimethoprim [From Bactrim] Allergy Intermediate RASH Verified 11/07/21 11:42 pepperoni Allergy Intermediate rash Uncoded 11/07/21 11:42 Assessment & Plan Assessment & Plan (1) Psychosis: Status: Acute Code(s): F29 - Unspecified psychosis not due to a substance or known physiological condition Plan 66 yo woamn wih PTSD, MDD, hx of SI and unstable diabetes. Rule out illicit drug abuse. Plan CV 15 min check will add sliding scale insulin continue current home meds 12/03- started on risperidone 1mg po bid, will complete moca, daughter denies hx of substance use. 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 12/04 continue current medications. 12/05 continue current medications. MOCA completed - vascular pattern of cognitive decline. I spent minutes with the patient and/or on the patient floor today, greater than?50% of which was spent counseling/coordinating care. Reason for contiued inpatient stay Substantial Risk for: inability to function
[2021-12-05 16:02] LABS: Glucose, Whole Blood 239 mg/dL (60-115)
[2021-12-05 17:00] VITALS: BP 150/85; PULSE 92; RESP 20; TEMP -12.3; TEMP 9.8; O2SAT 98
[2021-12-05 19:56] LABS: Glucose, Whole Blood 124 mg/dL (60-115)
[2021-12-05] MEDS: QUEtiapine Fumarate 100 MG TABLET PO (20:11)
[2021-12-05] MEDS: Docusate Sodium 100 MG CAPSULE 200 MG PO (20:11)
[2021-12-05] MEDS: Mirtazapine 7.5 MG TABLET PO (20:11)
[2021-12-05] MEDS: clonazePAM 0.5 MG TABLET 1.5 MG PO (20:11)
[2021-12-05] MEDS: Sennosides 8.6 MG TABLET PO (20:11)
[2021-12-05] MEDS: traZODone HCL 100 MG TABLET 300 MG PO (20:12)
[2021-12-05] MEDS: lamoTRIgine 100 MG TABLET PO (20:12)
[2021-12-05] MEDS: Prazosin HCL 5 MG CAPSULE 10 MG PO (20:12)
[2021-12-05] MEDS: Atorvastatin Calcium 40 MG TABLET PO (20:12)
[2021-12-05] MEDS: Acetaminophen 325 MG TABLET 650 MG PO (20:22)
[2021-12-06] MEDS: Omeprazole 20 MG CAPSULE.DR PO (05:31)
[2021-12-06 07:00] VITALS: BMI 25.0
[2021-12-06 07:30] LABS: Glucose, Whole Blood 210 mg/dL (60-115)
[2021-12-06 07:51] VITALS: BP 131/76; PULSE 91; RESP 16; TEMP 36.1; O2SAT 95
[2021-12-06] MEDS: Insulin Glargine,Hum.rec.anlog 100 UNIT/ML 10 ML VIAL 64 UNIT SUBCUT (07:53)
[2021-12-06] MEDS: Multivitamin TABLET 1 TAB PO (07:53)
[2021-12-06] MEDS: Insulin Lispro 100 UNIT/ML 3 ML VIAL SUBCUT ×3 (07:53→16:48)
[2021-12-06] MEDS: Cholecalciferol (Vitamin D3) 25 MCG TABLET 50 MCG PO (07:54)
[2021-12-06] MEDS: risperiDONE 1 MG TABLET PO ×2 (07:54→20:16)
[2021-12-06] MEDS: metFORMIN HCl 500 MG TABLET PO ×2 (07:54→16:48)
[2021-12-06] MEDS: lamoTRIgine 25 MG TABLET PO (07:54)
[2021-12-06] MEDS: Losartan Potassium 50 MG TABLET PO (07:54)
[2021-12-06] MEDS: glyBURIDE 5 MG TABLET PO ×2 (07:54→16:48)
[2021-12-06] MEDS: SITagliptin Phosphate 100 MG TABLET PO (07:54)
[2021-12-06 08:00] VITALS: PULSE 91
[2021-12-06] MEDS: Acetaminophen 325 MG TABLET 650 MG PO ×2 (08:00→20:17)
--- NOTE | 2021-12-06 09:29 | HO.PSYCHPN ---
Subjective Subjective Date of Service: 12/06/21 Reason For Visit: Depression with SI Subjective Notes: Conditional Voluntary Interim History: Pt reports feeling much less anxious, less overwhelmed. She reports sleeping and eating well. She denies SI/HI. Less insistence on ex BF coming to her apartment. She has been visible, social with peers. No behavioral concerns. Review of Systems Review of Systems no changes from ED Yes all other systems are reviewed and are negative Constitutional: Reports as per HPI Mental Status Exam Mental Status Exam Narrative: Appearance: casually groomed, fair hygiene in NAD Behavior:cooperative psychomotor: no agitation or retardation noted Speech: clear, normal rate/rhythm/volume, spontaneous Thought process: mostly linear Thought content:ex bf coming at night to her house, insists cameras off Mood: good Affect: congruent, non labile SI:denies HI:denies VH/AH: denies Delusions:persecutory delusions Insight/judgment: poor x2 Memory/cog: alert, oriented x 3. completed MOCA on 12/05/21, score 19/30- most impairments in executive function, recall- orientation, language repetition/naming/fluency intact- vascular pattern of cognitive decline. Diagnostics Vital Signs (24Hr): Vital Signs - 24 hr 12/06/21 21:14 12/07/21 08:07 Temperature 97.5 F 97.2 F Pulse Rate 94 86 Respiratory Rate 18 17 Blood Pressure 158/82 H 153/93 H Pulse Oximetry 95 91 L BMI result Body Mass Index 25.0 Labs Results: 11/30/21 20:03 12/02/21 07:20 Labs: Laboratory Results - last 48 hr 12/03/21 12/05/21 12/05/21 12:31 11:43 15:58 POC Glucose 272 H 239 H Ionized Calcium 5.2 12/05/21 12/06/21 12/06/21 19:52 07:26 11:35 POC Glucose 124 H 210 H 228 H Ionized Calcium 12/06/21 12/06/21 12/07/21 16:27 20:39 07:47 POC Glucose 305 H 144 H 163 H Ionized Calcium Imaging Radiology Impressions: ITS Impressions Head CT 12/03/21 15:53 IMPRESSION: No acute findings. Mild nonspecific periventricular white matter disease. Medications Medications Current Medications Acetaminophen (Acetaminophen 325 Mg Tablet) 650 mg PO Q6H PRN PRN Reason: Headache/Pain Mild Scale (1-3) Last Admin: 12/06/21 20:17 Dose: 650 mg Documented by: Al Hydroxide/Mg Hydroxide (Magnesium Hydrox/Alum Hydrox 30 Ml Oral.Susp) 30 ml PO Q6H PRN PRN Reason: Heartburn/Nausea Atorvastatin Calcium (Atorvastatin Calcium 40 Mg Tablet) 40 mg PO BEDTIME [facility] Last Admin: 12/06/21 20:13 Dose: 40 mg Documented by: Clonazepam (Clonazepam 0.5 Mg Tablet) 1.5 mg PO BEDTIME [facility] Last Admin: 12/06/21 20:14 Dose: 1.5 mg Documented by: Dextrose (Dextrose 50 % 25 Gm/50 Ml Syringe) 25 gm IVPUSH Q15M PRN; Protocol PRN Reason: per Hypoglycemia Standing Ord. Docusate Sodium (Docusate Sodium 100 Mg Capsule) 200 mg PO BEDTIME [facility] Last Admin: 12/06/21 20:14 Dose: 200 mg Documented by: Glucose (Glucose Gel 15 Gm Gel..Gram.) 15 gm PO Q15M PRN; Protocol PRN Reason: per Hypoglycemia Standing Ord. Glyburide (Glyburide 5 Mg Tablet) 5 mg PO BIDWM [facility] Last Admin: 12/07/21 08:11 Dose: 5 mg Documented by: Hydroxyzine HCl (Hydroxyzine Hcl 25 Mg Tablet) 25 mg PO BEDTIME PRN PRN Reason: Anxiety Insulin Glargine (Insulin Glargine,Hum.Rec.Anlog 100 Unit/Ml 10 Ml Vial) 64 unit SUBCUT DAILY [facility] Last Admin: 12/07/21 08:15 Dose: 64 unit Documented by: Insulin Human Lispro (Insulin Lispro 100 Unit/Ml 3 Ml Vial) 0 unit SUBCUT QIDACHS [facility]; Protocol Last Admin: 12/07/21 08:14 Dose: 2 unit Documented by: Lamotrigine (Lamotrigine 100 Mg Tablet) 100 mg PO BEDTIME [facility] Last Admin: 12/06/21 20:15 Dose: 100 mg Documented by: Lamotrigine (Lamotrigine 25 Mg Tablet) 25 mg PO DAILY [facility] Last Admin: 12/07/21 08:11 Dose: 25 mg Documented by: Losartan Potassium (Losartan Potassium 50 Mg Tablet) 50 mg PO DAILY [facility]; Protocol Last Admin: 12/06/21 07:54 Dose: 50 mg Documented by: Magnesium Hydroxide (Milk Of Magnesia 30 Ml Oral.Susp) 30 ml PO DAILY PRN PRN Reason: Constipation Last Admin: 12/02/21 17:29 Dose: 30 ml Documented by: Metformin HCl (Metformin Hcl 500 Mg Tablet) 500 mg PO BIDWM [facility] Last Admin: 12/07/21 08:11 Dose: 500 mg Documented by: Mirtazapine (Mirtazapine 7.5 Mg Tablet) 7.5 mg PO BEDTIME [facility] Last Admin: 12/06/21 20:15 Dose: 7.5 mg Documented by: Multivitamins/Vitamin C (Multivitamin Tablet) 1 tab PO DAILY [facility] Last Admin: 12/07/21 08:11 Dose: 1 tab Documented by: Omeprazole (Omeprazole 20 Mg Capsule.Dr) 20 mg PO DAILY@0630 [facility] Last Admin: 12/07/21 06:05 Dose: 20 mg Documented by: Prazosin HCl (Prazosin Hcl 5 Mg Capsule) 10 mg PO BEDTIME [facility]; Protocol Last Admin: 12/06/21 20:15 Dose: 10 mg Documented by: Quetiapine Fumarate (Quetiapine Fumarate 100 Mg Tablet) 100 mg PO BEDTIME [facility] Last Admin: 12/06/21 20:16 Dose: 100 mg Documented by: Risperidone (Risperidone 1 Mg Tablet) 1 mg PO BID [facility] Last Admin: 12/07/21 08:11 Dose: 1 mg Documented by: Senna (Sennosides 8.6 Mg Tablet) 8.6 mg PO BEDTIME [facility] Last Admin: 12/06/21 20:16 Dose: 8.6 mg Documented by: Sitagliptin Phosphate (Sitagliptin Phosphate 100 Mg Tablet) 100 mg PO DAILY [facility] Last Admin: 12/07/21 08:11 Dose: 100 mg Documented by: Trazodone HCl (Trazodone Hcl 100 Mg Tablet) 300 mg PO BEDTIME [facility] Last Admin: 12/06/21 20:16 Dose: 300 mg Documented by: Vitamin D (Cholecalciferol (Vitamin D3) 25 Mcg Tablet) 50 mcg PO DAILY [facility] Last Admin: 12/07/21 08:11 Dose: 50 mcg Documented by: Allergies Allergies Allergy/AdvReac Type Severity Reaction Status Date / Time Penicillins [PENICILLINS] Allergy Intermediate ITCH/RASH Verified 11/07/21 11:42 sulfamethoxazole Allergy Intermediate RASH Verified 11/07/21 11:42 [From Bactrim] sumatriptan Allergy Intermediate rash Verified 11/07/21 11:42 trimethoprim [From Bactrim] Allergy Intermediate RASH Verified 11/07/21 11:42 pepperoni Allergy Intermediate rash Uncoded 11/07/21 11:42 Assessment & Plan Assessment & Plan (1) Psychosis: Status: Acute Code(s): F29 - Unspecified psychosis not due to a substance or known physiological condition Plan 66 yo woman wih PTSD, MDD, hx of SI and unstable diabetes. Rule out illicit drug abuse. Plan CV 15 min check will add sliding scale insulin continue current home meds 12/03- started on risperidone 1mg po bid, will complete moca, daughter denies hx of substance use. 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 12/04 continue current medications. 12/05 continue current medications. MOCA completed - vascular pattern of cognitive decline. I spent minutes with the patient and/or on the patient floor today, greater than?50% of which was spent counseling/coordinating care. Reason for contiued inpatient stay Substantial Risk for: harm to self
[2021-12-06 11:39] LABS: Glucose, Whole Blood 228 mg/dL (60-115)
[2021-12-06 14:41] LABS: Calcium, Ionized 5.2 mg/dL (4.8-5.6)
[2021-12-06 16:30] LABS: Glucose, Whole Blood 305 mg/dL (60-115)
[2021-12-06] MEDS: Atorvastatin Calcium 40 MG TABLET PO (20:13)
[2021-12-06] MEDS: clonazePAM 0.5 MG TABLET 1.5 MG PO (20:14)
[2021-12-06] MEDS: Docusate Sodium 100 MG CAPSULE 200 MG PO (20:14)
[2021-12-06] MEDS: Mirtazapine 7.5 MG TABLET PO (20:15)
[2021-12-06] MEDS: Prazosin HCL 5 MG CAPSULE 10 MG PO (20:15)
[2021-12-06] MEDS: lamoTRIgine 100 MG TABLET PO (20:15)
[2021-12-06] MEDS: Sennosides 8.6 MG TABLET PO (20:16)
[2021-12-06] MEDS: traZODone HCL 100 MG TABLET 300 MG PO (20:16)
[2021-12-06] MEDS: QUEtiapine Fumarate 100 MG TABLET PO (20:16)
[2021-12-06 20:49] LABS: Glucose, Whole Blood 144 mg/dL (60-115)
[2021-12-06 21:14] VITALS: BP 158/82; PULSE 94; RESP 18; TEMP 36.4; O2SAT 95
[2021-12-07] VITALS: PULSE 94
[2021-12-07] MEDS: Omeprazole 20 MG CAPSULE.DR PO (06:05)
[2021-12-07 07:50] LABS: Glucose, Whole Blood 163 mg/dL (60-115)
[2021-12-07 08:07] VITALS: BP 153/93; PULSE 86; RESP 17; TEMP 36.2; O2SAT 91
[2021-12-07] MEDS: SITagliptin Phosphate 100 MG TABLET PO (08:11)
[2021-12-07] MEDS: Multivitamin TABLET 1 TAB PO (08:11)
[2021-12-07] MEDS: metFORMIN HCl 500 MG TABLET PO ×2 (08:11→16:44)
[2021-12-07] MEDS: Cholecalciferol (Vitamin D3) 25 MCG TABLET 50 MCG PO (08:11)
[2021-12-07] MEDS: lamoTRIgine 25 MG TABLET PO (08:11)
[2021-12-07] MEDS: risperiDONE 1 MG TABLET PO ×2 (08:11→21:00)
[2021-12-07] MEDS: glyBURIDE 5 MG TABLET PO ×2 (08:11→16:44)
[2021-12-07] MEDS: Insulin Lispro 100 UNIT/ML 3 ML VIAL SUBCUT ×3 (08:14→16:43)
[2021-12-07] MEDS: Insulin Glargine,Hum.rec.anlog 100 UNIT/ML 10 ML VIAL 64 UNIT SUBCUT (08:15)
[2021-12-07] MEDS: Losartan Potassium 50 MG TABLET PO (09:37)
[2021-12-07 11:52] LABS: Glucose, Whole Blood 271 mg/dL (60-115)
--- NOTE | 2021-12-07 13:08 | HO.PSYCHPN ---
Subjective Subjective Date of Service: 12/07/21 Reason For Visit: Depression with SI Subjective Notes: Conditional Voluntary Interim History: We had family meeting with pt's daughter- discussed finding of cognitive decline with vascular pattern of impairment. Pt reports sleeping better, although peer who was up at night kept her up briefly. She reports mood is good. No SI/HI. Pt much less overwhelmed. Per nursing, pt has attended assigned groups, social with peers. No behavioral concerns. Pt will be discharged tomorrow Friday, daughter will pick her up. Medication Compliance: Yes Side effects from medications: No Attending Groups: Yes Review of Systems Review of Systems no changes from ED Yes all other systems are reviewed and are negative Constitutional: Reports as per HPI Mental Status Exam Mental Status Exam Narrative: Appearance: casually groomed, fair hygiene in NAD Behavior:cooperative psychomotor: no agitation or retardation noted Speech: clear, normal rate/rhythm/volume, spontaneous Thought process: mostly linear Thought content:ex bf coming at night to her house, insists cameras off Mood: good Affect: congruent, non labile SI:denies HI:denies VH/AH: denies Delusions:persecutory delusions Insight/judgment: poor x2 Memory/cog: alert, oriented x 3. completed MOCA on 12/05/21, score 19/30- most impairments in executive function, recall- orientation, language repetition/naming/fluency intact- vascular pattern of cognitive decline. Diagnostics Vital Signs (24Hr): Vital Signs - 24 hr 12/06/21 21:14 12/07/21 08:07 Temperature 97.5 F 97.2 F Pulse Rate 94 86 Respiratory Rate 18 17 Blood Pressure 158/82 H 153/93 H Pulse Oximetry 95 91 L BMI result Body Mass Index 25.0 Labs Results: 11/30/21 20:03 12/02/21 07:20 Labs: Laboratory Results - last 48 hr 12/03/21 12/05/21 12/05/21 12:31 15:58 19:52 POC Glucose 239 H 124 H Ionized Calcium 5.2 12/06/21 12/06/21 12/06/21 07:26 11:35 16:27 POC Glucose 210 H 228 H 305 H Ionized Calcium 12/06/21 12/07/21 12/07/21 20:39 07:47 11:48 POC Glucose 144 H 163 H 271 H Ionized Calcium Imaging Radiology Impressions: ITS Impressions Head CT 12/03/21 15:53 IMPRESSION: No acute findings. Mild nonspecific periventricular white matter disease. Medications Medications Current Medications Acetaminophen (Acetaminophen 325 Mg Tablet) 650 mg PO Q6H PRN PRN Reason: Headache/Pain Mild Scale (1-3) Last Admin: 12/06/21 20:17 Dose: 650 mg Documented by: Al Hydroxide/Mg Hydroxide (Magnesium Hydrox/Alum Hydrox 30 Ml Oral.Susp) 30 ml PO Q6H PRN PRN Reason: Heartburn/Nausea Atorvastatin Calcium (Atorvastatin Calcium 40 Mg Tablet) 40 mg PO BEDTIME [facility] Last Admin: 12/06/21 20:13 Dose: 40 mg Documented by: Clonazepam (Clonazepam 0.5 Mg Tablet) 1.5 mg PO BEDTIME [facility] Last Admin: 12/06/21 20:14 Dose: 1.5 mg Documented by: Dextrose (Dextrose 50 % 25 Gm/50 Ml Syringe) 25 gm IVPUSH Q15M PRN; Protocol PRN Reason: per Hypoglycemia Standing Ord. Docusate Sodium (Docusate Sodium 100 Mg Capsule) 200 mg PO BEDTIME [facility] Last Admin: 12/06/21 20:14 Dose: 200 mg Documented by: Glucose (Glucose Gel 15 Gm Gel..Gram.) 15 gm PO Q15M PRN; Protocol PRN Reason: per Hypoglycemia Standing Ord. Glyburide (Glyburide 5 Mg Tablet) 5 mg PO BIDWM [facility] Last Admin: 12/07/21 08:11 Dose: 5 mg Documented by: Hydroxyzine HCl (Hydroxyzine Hcl 25 Mg Tablet) 25 mg PO BEDTIME PRN PRN Reason: Anxiety Insulin Glargine (Insulin Glargine,Hum.Rec.Anlog 100 Unit/Ml 10 Ml Vial) 64 unit SUBCUT DAILY [facility] Last Admin: 12/07/21 08:15 Dose: 64 unit Documented by: Insulin Human Lispro (Insulin Lispro 100 Unit/Ml 3 Ml Vial) 0 unit SUBCUT QIDACHS [facility]; Protocol Last Admin: 12/07/21 11:59 Dose: 6 unit Documented by: Lamotrigine (Lamotrigine 100 Mg Tablet) 100 mg PO BEDTIME [facility] Last Admin: 12/06/21 20:15 Dose: 100 mg Documented by: Lamotrigine (Lamotrigine 25 Mg Tablet) 25 mg PO DAILY [facility] Last Admin: 12/07/21 08:11 Dose: 25 mg Documented by: Losartan Potassium (Losartan Potassium 50 Mg Tablet) 50 mg PO DAILY [facility]; Protocol Last Admin: 12/07/21 09:37 Dose: 50 mg Documented by: Magnesium Hydroxide (Milk Of Magnesia 30 Ml Oral.Susp) 30 ml PO DAILY PRN PRN Reason: Constipation Last Admin: 12/02/21 17:29 Dose: 30 ml Documented by: Metformin HCl (Metformin Hcl 500 Mg Tablet) 500 mg PO BIDWM [facility] Last Admin: 12/07/21 08:11 Dose: 500 mg Documented by: Mirtazapine (Mirtazapine 7.5 Mg Tablet) 7.5 mg PO BEDTIME [facility] Last Admin: 12/06/21 20:15 Dose: 7.5 mg Documented by: Multivitamins/Vitamin C (Multivitamin Tablet) 1 tab PO DAILY [facility] Last Admin: 12/07/21 08:11 Dose: 1 tab Documented by: Omeprazole (Omeprazole 20 Mg Capsule.Dr) 20 mg PO DAILY@0630 [facility] Last Admin: 12/07/21 06:05 Dose: 20 mg Documented by: Prazosin HCl (Prazosin Hcl 5 Mg Capsule) 10 mg PO BEDTIME [facility]; Protocol Last Admin: 12/06/21 20:15 Dose: 10 mg Documented by: Quetiapine Fumarate (Quetiapine Fumarate 100 Mg Tablet) 100 mg PO BEDTIME [facility] Last Admin: 12/06/21 20:16 Dose: 100 mg Documented by: Risperidone (Risperidone 1 Mg Tablet) 1 mg PO BID [facility] Last Admin: 12/07/21 08:11 Dose: 1 mg Documented by: Senna (Sennosides 8.6 Mg Tablet) 8.6 mg PO BEDTIME [facility] Last Admin: 12/06/21 20:16 Dose: 8.6 mg Documented by: Sitagliptin Phosphate (Sitagliptin Phosphate 100 Mg Tablet) 100 mg PO DAILY [facility] Last Admin: 12/07/21 08:11 Dose: 100 mg Documented by: Trazodone HCl (Trazodone Hcl 100 Mg Tablet) 300 mg PO BEDTIME [facility] Last Admin: 12/06/21 20:16 Dose: 300 mg Documented by: Vitamin D (Cholecalciferol (Vitamin D3) 25 Mcg Tablet) 50 mcg PO DAILY [facility] Last Admin: 12/07/21 08:11 Dose: 50 mcg Documented by: Allergies Allergies Allergy/AdvReac Type Severity Reaction Status Date / Time Penicillins [PENICILLINS] Allergy Intermediate ITCH/RASH Verified 11/07/21 11:42 sulfamethoxazole Allergy Intermediate RASH Verified 11/07/21 11:42 [From Bactrim] sumatriptan Allergy Intermediate rash Verified 11/07/21 11:42 trimethoprim [From Bactrim] Allergy Intermediate RASH Verified 11/07/21 11:42 pepperoni Allergy Intermediate rash Uncoded 11/07/21 11:42 Assessment & Plan Assessment & Plan (1) MDD (major depressive disorder), recurrent episode, moderate: Status: Acute Code(s): F33.1 - Major depressive disorder, recurrent, moderate (2) 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 Rule out illicit drug abuse. Plan CV 15 min check will add sliding scale insulin continue current home meds 12/03- started on risperidone 1mg po bid, will complete moca, daughter denies hx of substance use. 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 12/04 continue current medications. 12/05 continue current medications. MOCA completed - vascular pattern of cognitive decline. 12/07 continue current medications- d/c 12/08 I spent __25____ minutes with the patient and/or on the patient floor today, greater than?50% of which was spent counseling/coordinating care. Reason for contiued inpatient stay Substantial Risk for: inability to function
--- NOTE | 2021-12-07 13:24 | P.DS_ITS ---
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: Status: Acute DS: Medications Discharge Medications Home Medications: Home Medications Medication Instructions Recorded Confirmed cholecalciferol (vitamin D3) 50 50 mcg PO DAILY 05/30/20 11/30/21 mcg (2,000 unit) tablet (Vitamin D3) clonazepam 1 mg tablet 1.5 mg PO BEDTIME PRN 05/30/20 11/30/21 insulin glargine 100 unit/mL 64 unit SUBCUT QAM 05/30/20 11/30/21 subcutaneous solution (Lantus U-100 Insulin) losartan 50 mg tablet 50 mg PO DAILY 05/30/20 11/30/21 mirtazapine 7.5 mg tablet 7.5 mg PO BEDTIME 05/30/20 11/30/21 multivitamin 1 tab PO DAILY 05/30/20 11/30/21 prazosin 5 mg capsule 10 mg PO BEDTIME 05/30/20 11/30/21 sitagliptin 100 mg tablet (Januvia) 100 mg PO DAILY 05/30/20 11/30/21 sennosides 8.6 mg capsule (senna) 8.6 mg PO BEDTIME 02/22/21 11/30/21 atorvastatin 40 mg tablet 1 tab PO BEDTIME 11/30/21 11/30/21 clonazepam 0.5 mg tablet 1 tab PO DAILY PRN 11/30/21 11/30/21 glyburide 5 mg-metformin 500 mg 1 tab PO BID 11/30/21 11/30/21 tablet lamotrigine 100 mg tablet 100 mg PO BEDTIME 11/30/21 11/30/21 (Lamictal) linaclotide 145 mcg capsule 1 cap PO DAILY 11/30/21 11/30/21 (Linzess) trazodone 150 mg tablet 2 tab PO BEDTIME 11/30/21 11/30/21 Previous Rx's Medication Instructions Recorded omeprazole 20 mg capsule,delayed 20 mg PO DAILY #30 cap 02/22/21 release docusate sodium 100 mg capsule 200 mg PO BEDTIME #60 cap 08/20/21 risperidone 1 mg tablet 1 mg PO BID #60 tab 12/07/21 Mental Status Exam Mental Status Exam Narrative: Appearance: casually groomed, fair hygiene in NAD Behavior:cooperative psychomotor: no agitation or retardation noted Speech: clear, normal rate/rhythm/volume, spontaneous Thought process: mostly linear Thought content:ex bf coming at night to her house, insists cameras off Mood: good Affect: congruent, non labile SI:denies HI:denies VH/AH: denies Delusions:persecutory delusions Insight/judgment: poor x2 Memory/cog: alert, oriented x 3. completed MOCA on 12/05/21, score 19/30- most impairments in executive function, recall- orientation, language repetition/naming/fluency intact- vascular pattern of cognitive decline. Data Data Completed and Pending Completed studies during hospitalization [Text1]: 11/30/21 11/30/21 11/30/21 15:37 15:37 16:03 WBC RBC Hgb Hct MCV MCH MCHC RDW Plt Count MPV Immature Gran % (Auto) Neut % (Auto) Lymph % (Auto) [place] % (Auto) Eos % (Auto) Baso % (Auto) Lymph # (Auto) [place] # (Auto) Eos # (Auto) Baso # (Auto) Abs Immat Gran (auto) Absolute Neuts (auto) Absolute Nucleated RBC Nucleated RBC % (auto) Sodium Potassium Chloride Carbon Dioxide Anion Gap BUN Creatinine Estim Creat Clear Calc Estimated GFR POC Glucose Random Glucose Fasting Glucose Estimat Average Glucose Hemoglobin A1c % Calcium Ionized Calcium Magnesium Total Bilirubin Direct Bilirubin AST ALT Alkaline Phosphatase Total Protein Albumin Triglycerides Cholesterol LDL Cholesterol, Calc HDL Cholesterol Renin Activity Aldosterone Aldosterone/Renin Ratio Vitamin B12 25-OH Vitamin D Total Folate TSH PTH Intact Calcium (PTH Intact) Urine Color YELLOW Urine Appearance CLEAR Urine pH 6.0 Ur Specific [place] >= 1.030 H Urine Protein 2+ H Urine Glucose (UA) >=1000 H Urine Ketones 5 Urine Blood TRACE Urine Nitrite NEG Ur Leukocyte Esterase NEG Urine RBC 0-2 Urine WBC 0-2 Ur Squamous Epith Cells 1+ Ur Renal Epithelial Cell 1+ Urine Bacteria NONE Salicylates Urine Opiates Screen Not Detected Urine Fentanyl Screen POSITIVE H Acetaminophen Ur Barbiturates Screen Not Detected Ur Phencyclidine Scrn Not Detected Ur Amphetamines Screen POSITIVE H U Benzodiazepines Scrn POSITIVE H Urine Cocaine Screen Not Detected U Marijuana (THC) Screen Not Detected T.pallidum Ab (EIA) [place] species DNA Chlam trachomat DNA PCR COVID-19 (THEE) Negative COVID-19 Clin Com See Note [place] DNA Probe N.gonorrhoeae DNA (PCR) Trichomonas DNA Probe 11/30/21 11/30/21 11/30/21 19:01 20:03 20:03 WBC 9.7 RBC 4.43 Hgb 12.4 Hct 38.3 MCV 86.5 MCH 28.0 MCHC 32.4 RDW 13.0 Plt Count 267 MPV 10.0 Immature Gran % (Auto) 0.2 Neut % (Auto) 56.8 Lymph % (Auto) 33.5 [place] % (Auto) 6.9 Eos % (Auto) 2.2 Baso % (Auto) 0.4 Lymph # (Auto) 3.3 [place] # (Auto) 0.7 Eos # (Auto) 0.2 Baso # (Auto) 0.0 Abs Immat Gran (auto) 0.02 Absolute Neuts (auto) 5.5 Absolute Nucleated RBC 0.000 Nucleated RBC % (auto) 0.0 Sodium 137 Potassium 4.4 Chloride 100 Carbon Dioxide 31 H Anion Gap 10 L BUN 8 L Creatinine 0.83 Estim Creat Clear Calc 69.5 Estimated GFR > 60 POC Glucose 220 H Random Glucose 317 H Fasting Glucose Estimat Average Glucose Hemoglobin A1c % Calcium 9.9 Ionized Calcium Magnesium 1.7 Total Bilirubin Direct Bilirubin AST ALT Alkaline Phosphatase Total Protein Albumin Triglycerides Cholesterol LDL Cholesterol, Calc HDL Cholesterol Renin Activity Aldosterone Aldosterone/Renin Ratio Vitamin B12 25-OH Vitamin D Total Folate TSH PTH Intact Calcium (PTH Intact) Urine Color Urine Appearance Urine pH Ur Specific [place] Urine Protein Urine Glucose (UA) Urine Ketones Urine Blood Urine Nitrite Ur Leukocyte Esterase Urine RBC Urine WBC Ur Squamous Epith Cells Ur Renal Epithelial Cell Urine Bacteria Salicylates < 5.0 L Urine Opiates Screen Urine Fentanyl Screen Acetaminophen < 1 Ur Barbiturates Screen Ur Phencyclidine Scrn Ur Amphetamines Screen U Benzodiazepines Scrn Urine Cocaine Screen U Marijuana (THC) Screen T.pallidum Ab (EIA) [place] species DNA Chlam trachomat DNA PCR COVID-19 (THEE) COVID-19 Clin Com [place] DNA Probe N.gonorrhoeae DNA (PCR) Trichomonas DNA Probe 11/30/21 11/30/21 11/30/21 20:03 21:59 Unknown WBC RBC Hgb Hct MCV MCH MCHC RDW Plt Count MPV Immature Gran % (Auto) Neut % (Auto) Lymph % (Auto) [place] % (Auto) Eos % (Auto) Baso % (Auto) Lymph # (Auto) [place] # (Auto) Eos # (Auto) Baso # (Auto) Abs Immat Gran (auto) Absolute Neuts (auto) Absolute Nucleated RBC Nucleated RBC % (auto) Sodium Potassium Chloride Carbon Dioxide Anion Gap BUN Creatinine Estim Creat Clear Calc Estimated GFR POC Glucose 290 H Random Glucose Fasting Glucose Estimat Average Glucose Hemoglobin A1c % Calcium Ionized Calcium Magnesium Total Bilirubin 0.4 Direct Bilirubin 0.2 AST 36 H ALT 45 H Alkaline Phosphatase 78 Total Protein 6.6 Albumin 4.1 Triglycerides Cholesterol LDL Cholesterol, Calc HDL Cholesterol Renin Activity Aldosterone Aldosterone/Renin Ratio Vitamin B12 25-OH Vitamin D Total Folate TSH 1.48 PTH Intact Calcium (PTH Intact) Urine Color Urine Appearance Urine pH Ur Specific [place] Urine Protein Urine Glucose (UA) Urine Ketones Urine Blood Urine Nitrite Ur Leukocyte Esterase Urine RBC Urine WBC Ur Squamous Epith Cells Ur Renal Epithelial Cell Urine Bacteria Salicylates Urine Opiates Screen Urine Fentanyl Screen Acetaminophen Ur Barbiturates Screen Ur Phencyclidine Scrn Ur Amphetamines Screen U Benzodiazepines Scrn Urine Cocaine Screen U Marijuana (THC) Screen T.pallidum Ab (EIA) [place] species DNA Chlam trachomat DNA PCR Cancelled COVID-19 (THEE) COVID-19 Clin Com [place] DNA Probe N.gonorrhoeae DNA (PCR) Cancelled Trichomonas DNA Probe 11/30/21 12/01/21 12/01/21 Unknown 06:12 20:05 WBC RBC Hgb Hct MCV MCH MCHC RDW Plt Count MPV Immature Gran % (Auto) Neut % (Auto) Lymph % (Auto) [place] % (Auto) Eos % (Auto) Baso % (Auto) Lymph # (Auto) [place] # (Auto) Eos # (Auto) Baso # (Auto) Abs Immat Gran (auto) Absolute Neuts (auto) Absolute Nucleated RBC Nucleated RBC % (auto) Sodium Potassium Chloride Carbon Dioxide Anion Gap BUN Creatinine Estim Creat Clear Calc Estimated GFR POC Glucose 190 H 231 H Random Glucose Fasting Glucose Estimat Average Glucose Hemoglobin A1c % Calcium Ionized Calcium Magnesium Total Bilirubin Direct Bilirubin AST ALT Alkaline Phosphatase Total Protein Albumin Triglycerides Cholesterol LDL Cholesterol, Calc HDL Cholesterol Renin Activity Aldosterone Aldosterone/Renin Ratio Vitamin B12 25-OH Vitamin D Total Folate TSH PTH Intact Calcium (PTH Intact) Urine Color Urine Appearance Urine pH Ur Specific [place] Urine Protein Urine Glucose (UA) Urine Ketones Urine Blood Urine Nitrite Ur Leukocyte Esterase Urine RBC Urine WBC Ur Squamous Epith Cells Ur Renal Epithelial Cell Urine Bacteria Salicylates Urine Opiates Screen Urine Fentanyl Screen Acetaminophen Ur Barbiturates Screen Ur Phencyclidine Scrn Ur Amphetamines Screen U Benzodiazepines Scrn Urine Cocaine Screen U Marijuana (THC) Screen T.pallidum Ab (EIA) [place] species DNA Cancelled Chlam trachomat DNA PCR COVID-19 (THEE) COVID-19 Clin Com [place] DNA Probe Cancelled N.gonorrhoeae DNA (PCR) Trichomonas DNA Probe Cancelled 12/02/21 12/02/21 12/02/21 07:20 08:56 11:13 WBC RBC Hgb Hct MCV MCH MCHC RDW Plt Count MPV Immature Gran % (Auto) Neut % (Auto) Lymph % (Auto) [place] % (Auto) Eos % (Auto) Baso % (Auto) Lymph # (Auto) [place] # (Auto) Eos # (Auto) Baso # (Auto) Abs Immat Gran (auto) Absolute Neuts (auto) Absolute Nucleated RBC Nucleated RBC % (auto) Sodium 138 Potassium 4.5 Chloride 100 Carbon Dioxide 29 Anion Gap 14 BUN 12 Creatinine 0.89 Estim Creat Clear Calc 64.8 Estimated GFR > 60 POC Glucose 303 H 278 H Random Glucose Fasting Glucose 266 H Estimat Average Glucose Hemoglobin A1c % Calcium 10.3 H Ionized Calcium Magnesium Total Bilirubin 0.4 Direct Bilirubin AST 32 H ALT 42 H Alkaline Phosphatase 66 Total Protein 6.4 L Albumin 4.0 Triglycerides 239 Cholesterol 154 LDL Cholesterol, Calc 65 HDL Cholesterol 42 Renin Activity Aldosterone Aldosterone/Renin Ratio Vitamin B12 25-OH Vitamin D Total Folate TSH PTH Intact Calcium (PTH Intact) Urine Color Urine Appearance Urine pH Ur Specific [place] Urine Protein Urine Glucose (UA) Urine Ketones Urine Blood Urine Nitrite Ur Leukocyte Esterase Urine RBC Urine WBC Ur Squamous Epith Cells Ur Renal Epithelial Cell Urine Bacteria Salicylates Urine Opiates Screen Urine Fentanyl Screen Acetaminophen Ur Barbiturates Screen Ur Phencyclidine Scrn Ur Amphetamines Screen U Benzodiazepines Scrn Urine Cocaine Screen U Marijuana (THC) Screen T.pallidum Ab (EIA) [place] species DNA Chlam trachomat DNA PCR COVID-19 (THEE) COVID-19 Clin Com [place] DNA Probe N.gonorrhoeae DNA (PCR) Trichomonas DNA Probe 12/02/21 12/02/21 12/03/21 16:18 20:09 08:35 WBC RBC Hgb Hct MCV MCH MCHC RDW Plt Count MPV Immature Gran % (Auto) Neut % (Auto) Lymph % (Auto) [place] % (Auto) Eos % (Auto) Baso % (Auto) Lymph # (Auto) [place] # (Auto) Eos # (Auto) Baso # (Auto) Abs Immat Gran (auto) Absolute Neuts (auto) Absolute Nucleated RBC Nucleated RBC % (auto) Sodium Potassium Chloride Carbon Dioxide Anion Gap BUN Creatinine Estim Creat Clear Calc Estimated GFR POC Glucose 178 H 169 H 265 H Random Glucose Fasting Glucose Estimat Average Glucose Hemoglobin A1c % Calcium Ionized Calcium Magnesium Total Bilirubin Direct Bilirubin AST ALT Alkaline Phosphatase Total Protein Albumin Triglycerides Cholesterol LDL Cholesterol, Calc HDL Cholesterol Renin Activity Aldosterone Aldosterone/Renin Ratio Vitamin B12 25-OH Vitamin D Total Folate TSH PTH Intact Calcium (PTH Intact) Urine Color Urine Appearance Urine pH Ur Specific [place] Urine Protein Urine Glucose (UA) Urine Ketones Urine Blood Urine Nitrite Ur Leukocyte Esterase Urine RBC Urine WBC Ur Squamous Epith Cells Ur Renal Epithelial Cell Urine Bacteria Salicylates Urine Opiates Screen Urine Fentanyl Screen Acetaminophen Ur Barbiturates Screen Ur Phencyclidine Scrn Ur Amphetamines Screen U Benzodiazepines Scrn Urine Cocaine Screen U Marijuana (THC) Screen T.pallidum Ab (EIA) [place] species DNA Chlam trachomat DNA PCR COVID-19 (THEE) COVID-19 Clin Com [place] DNA Probe N.gonorrhoeae DNA (PCR) Trichomonas DNA Probe 12/03/21 12/03/21 12/03/21 11:53 12:31 12:31 WBC RBC Hgb Hct MCV MCH MCHC RDW Plt Count MPV Immature Gran % (Auto) Neut % (Auto) Lymph % (Auto) [place] % (Auto) Eos % (Auto) Baso % (Auto) Lymph # (Auto) [place] # (Auto) Eos # (Auto) Baso # (Auto) Abs Immat Gran (auto) Absolute Neuts (auto) Absolute Nucleated RBC Nucleated RBC % (auto) Sodium Potassium Chloride Carbon Dioxide Anion Gap BUN Creatinine Estim Creat Clear Calc Estimated GFR POC Glucose 222 H Random Glucose Fasting Glucose Estimat Average Glucose Hemoglobin A1c % Calcium Ionized Calcium 5.2 Magnesium Total Bilirubin Direct Bilirubin AST ALT Alkaline Phosphatase Total Protein Albumin Triglycerides Cholesterol LDL Cholesterol, Calc HDL Cholesterol Renin Activity Aldosterone Aldosterone/Renin Ratio Vitamin B12 25-OH Vitamin D Total Folate TSH PTH Intact 23 Calcium (PTH Intact) 10.6 H Urine Color Urine Appearance Urine pH Ur Specific [place] Urine Protein Urine Glucose (UA) Urine Ketones Urine Blood Urine Nitrite Ur Leukocyte Esterase Urine RBC Urine WBC Ur Squamous Epith Cells Ur Renal Epithelial Cell Urine Bacteria Salicylates Urine Opiates Screen Urine Fentanyl Screen Acetaminophen Ur Barbiturates Screen Ur Phencyclidine Scrn Ur Amphetamines Screen U Benzodiazepines Scrn Urine Cocaine Screen U Marijuana (THC) Screen T.pallidum Ab (EIA) [place] species DNA Chlam trachomat DNA PCR COVID-19 (THEE) COVID-19 Clin Com [place] DNA Probe N.gonorrhoeae DNA (PCR) Trichomonas DNA Probe 12/03/21 12/03/21 12/03/21 12:31 16:41 21:36 WBC RBC Hgb Hct MCV MCH MCHC RDW Plt Count MPV Immature Gran % (Auto) Neut % (Auto) Lymph % (Auto) [place] % (Auto) Eos % (Auto) Baso % (Auto) Lymph # (Auto) [place] # (Auto) Eos # (Auto) Baso # (Auto) Abs Immat Gran (auto) Absolute Neuts (auto) Absolute Nucleated RBC Nucleated RBC % (auto) Sodium Potassium Chloride Carbon Dioxide Anion Gap BUN Creatinine Estim Creat Clear Calc Estimated GFR POC Glucose 242 H 130 H Random Glucose Fasting Glucose Estimat Average Glucose Hemoglobin A1c % Calcium Ionized Calcium Magnesium Total Bilirubin Direct Bilirubin AST ALT Alkaline Phosphatase Total Protein Albumin Triglycerides Cholesterol LDL Cholesterol, Calc HDL Cholesterol Renin Activity Aldosterone Aldosterone/Renin Ratio Vitamin B12 25-OH Vitamin D Total 48.2 Folate TSH PTH Intact Calcium (PTH Intact) Urine Color Urine Appearance Urine pH Ur Specific [place] Urine Protein Urine Glucose (UA) Urine Ketones Urine Blood Urine Nitrite Ur Leukocyte Esterase Urine RBC Urine WBC Ur Squamous Epith Cells Ur Renal Epithelial Cell Urine Bacteria Salicylates Urine Opiates Screen Urine Fentanyl Screen Acetaminophen Ur Barbiturates Screen Ur Phencyclidine Scrn Ur Amphetamines Screen U Benzodiazepines Scrn Urine Cocaine Screen U Marijuana (THC) Screen T.pallidum Ab (EIA) [place] species DNA Chlam trachomat DNA PCR COVID-19 (THEE) COVID-19 Clin Com [place] DNA Probe N.gonorrhoeae DNA (PCR) Trichomonas DNA Probe 12/04/21 12/04/21 12/04/21 07:11 07:11 07:40 WBC RBC Hgb Hct MCV MCH MCHC RDW Plt Count MPV Immature Gran % (Auto) Neut % (Auto) Lymph % (Auto) [place] % (Auto) Eos % (Auto) Baso % (Auto) Lymph # (Auto) [place] # (Auto) Eos # (Auto) Baso # (Auto) Abs Immat Gran (auto) Absolute Neuts (auto) Absolute Nucleated RBC Nucleated RBC % (auto) Sodium Potassium Chloride Carbon Dioxide Anion Gap BUN Creatinine Estim Creat Clear Calc Estimated GFR POC Glucose 222 H Random Glucose Fasting Glucose Estimat Average Glucose 200 Hemoglobin A1c % 8.6 Calcium Ionized Calcium Magnesium Total Bilirubin Direct Bilirubin AST ALT Alkaline Phosphatase Total Protein Albumin Triglycerides Cholesterol LDL Cholesterol, Calc HDL Cholesterol Renin Activity Pending Aldosterone Pending Aldosterone/Renin Ratio Pending Vitamin B12 25-OH Vitamin D Total Folate TSH PTH Intact Calcium (PTH Intact) Urine Color Urine Appearance Urine pH Ur Specific [place] Urine Protein Urine Glucose (UA) Urine Ketones Urine Blood Urine Nitrite Ur Leukocyte Esterase Urine RBC Urine WBC Ur Squamous Epith Cells Ur Renal Epithelial Cell Urine Bacteria Salicylates Urine Opiates Screen Urine Fentanyl Screen Acetaminophen Ur Barbiturates Screen Ur Phencyclidine Scrn Ur Amphetamines Screen U Benzodiazepines Scrn Urine Cocaine Screen U Marijuana (THC) Screen T.pallidum Ab (EIA) [place] species DNA Chlam trachomat DNA PCR COVID-19 (THEE) COVID-19 Clin Com [place] DNA Probe N.gonorrhoeae DNA (PCR) Trichomonas DNA Probe 12/04/21 12/04/21 12/04/21 10:09 10:09 11:30 WBC RBC Hgb Hct MCV MCH MCHC RDW Plt Count MPV Immature Gran % (Auto) Neut % (Auto) Lymph % (Auto) [place] % (Auto) Eos % (Auto) Baso % (Auto) Lymph # (Auto) [place] # (Auto) Eos # (Auto) Baso # (Auto) Abs Immat Gran (auto) Absolute Neuts (auto) Absolute Nucleated RBC Nucleated RBC % (auto) Sodium Potassium Chloride Carbon Dioxide Anion Gap BUN Creatinine Estim Creat Clear Calc Estimated GFR POC Glucose 270 H Random Glucose Fasting Glucose Estimat Average Glucose Hemoglobin A1c % Calcium Ionized Calcium Magnesium Total Bilirubin Direct Bilirubin AST ALT Alkaline Phosphatase Total Protein Albumin Triglycerides Cholesterol LDL Cholesterol, Calc HDL Cholesterol Renin Activity Aldosterone Aldosterone/Renin Ratio Vitamin B12 532 25-OH Vitamin D Total Folate > 20.0 TSH PTH Intact Calcium (PTH Intact) Urine Color Urine Appearance Urine pH Ur Specific [place] Urine Protein Urine Glucose (UA) Urine Ketones Urine Blood Urine Nitrite Ur Leukocyte Esterase Urine RBC Urine WBC Ur Squamous Epith Cells Ur Renal Epithelial Cell Urine Bacteria Salicylates Urine Opiates Screen Urine Fentanyl Screen Acetaminophen Ur Barbiturates Screen Ur Phencyclidine Scrn Ur Amphetamines Screen U Benzodiazepines Scrn Urine Cocaine Screen U Marijuana (THC) Screen T.pallidum Ab (EIA) Nonreactive [place] species DNA Chlam trachomat DNA PCR COVID-19 (THEE) COVID-19 Clin Com [place] DNA Probe N.gonorrhoeae DNA (PCR) Trichomonas DNA Probe 12/04/21 12/04/21 12/04/21 16:42 19:55 20:05 WBC RBC Hgb Hct MCV MCH MCHC RDW Plt Count MPV Immature Gran % (Auto) Neut % (Auto) Lymph % (Auto) [place] % (Auto) Eos % (Auto) Baso % (Auto) Lymph # (Auto) [place] # (Auto) Eos # (Auto) Baso # (Auto) Abs Immat Gran (auto) Absolute Neuts (auto) Absolute Nucleated RBC Nucleated RBC % (auto) Sodium Potassium Chloride Carbon Dioxide Anion Gap BUN Creatinine Estim Creat Clear Calc Estimated GFR POC Glucose 269 H 194 H Random Glucose Fasting Glucose Estimat Average Glucose Hemoglobin A1c % Calcium Ionized Calcium Magnesium Total Bilirubin Direct Bilirubin AST ALT Alkaline Phosphatase Total Protein Albumin Triglycerides Cholesterol LDL Cholesterol, Calc HDL Cholesterol Renin Activity Aldosterone Aldosterone/Renin Ratio Vitamin B12 25-OH Vitamin D Total Folate TSH PTH Intact Calcium (PTH Intact) Urine Color Urine Appearance Urine pH Ur Specific [place] Urine Protein Urine Glucose (UA) Urine Ketones Urine Blood Urine Nitrite Ur Leukocyte Esterase Urine RBC Urine WBC Ur Squamous Epith Cells Ur Renal Epithelial Cell Urine Bacteria Salicylates Urine Opiates Screen Not Detected Urine Fentanyl Screen POSITIVE H Acetaminophen Ur Barbiturates Screen Ur Phencyclidine Scrn Ur Amphetamines Screen Not Detected U Benzodiazepines Scrn Urine Cocaine Screen Not Detected U Marijuana (THC) Screen Not Detected T.pallidum Ab (EIA) [place] species DNA Chlam trachomat DNA PCR COVID-19 (THEE) COVID-19 Clin Com [place] DNA Probe N.gonorrhoeae DNA (PCR) Trichomonas DNA Probe 04/13/22 04/13/22 04/13/22 07:28 11:43 15:58 WBC RBC Hgb Hct MCV MCH MCHC RDW Plt Count MPV Immature Gran % (Auto) Neut % (Auto) Lymph % (Auto) [place] % (Auto) Eos % (Auto) Baso % (Auto) Lymph # (Auto) [place] # (Auto) Eos # (Auto) Baso # (Auto) Abs Immat Gran (auto) Absolute Neuts (auto) Absolute Nucleated RBC Nucleated RBC % (auto) Sodium Potassium Chloride Carbon Dioxide Anion Gap BUN Creatinine Estim Creat Clear Calc Estimated GFR POC Glucose 213 H 272 H 239 H Random Glucose Fasting Glucose Estimat Average Glucose Hemoglobin A1c % Calcium Ionized Calcium Magnesium Total Bilirubin Direct Bilirubin AST ALT Alkaline Phosphatase Total Protein Albumin Triglycerides Cholesterol LDL Cholesterol, Calc HDL Cholesterol Renin Activity Aldosterone Aldosterone/Renin Ratio Vitamin B12 25-OH Vitamin D Total Folate TSH PTH Intact Calcium (PTH Intact) Urine Color Urine Appearance Urine pH Ur Specific [place] Urine Protein Urine Glucose (UA) Urine Ketones Urine Blood Urine Nitrite Ur Leukocyte Esterase Urine RBC Urine WBC Ur Squamous Epith Cells Ur Renal Epithelial Cell Urine Bacteria Salicylates Urine Opiates Screen Urine Fentanyl Screen Acetaminophen Ur Barbiturates Screen Ur Phencyclidine Scrn Ur Amphetamines Screen U Benzodiazepines Scrn Urine Cocaine Screen U Marijuana (THC) Screen T.pallidum Ab (EIA) [place] species DNA Chlam trachomat DNA PCR COVID-19 (THEE) COVID-19 Clin Com [place] DNA Probe N.gonorrhoeae DNA (PCR) Trichomonas DNA Probe 12/05/21 12/06/21 12/06/21 19:52 07:26 11:35 WBC RBC Hgb Hct MCV MCH MCHC RDW Plt Count MPV Immature Gran % (Auto) Neut % (Auto) Lymph % (Auto) [place] % (Auto) Eos % (Auto) Baso % (Auto) Lymph # (Auto) [place] # (Auto) Eos # (Auto) Baso # (Auto) Abs Immat Gran (auto) Absolute Neuts (auto) Absolute Nucleated RBC Nucleated RBC % (auto) Sodium Potassium Chloride Carbon Dioxide Anion Gap BUN Creatinine Estim Creat Clear Calc Estimated GFR POC Glucose 124 H 210 H 228 H Random Glucose Fasting Glucose Estimat Average Glucose Hemoglobin A1c % Calcium Ionized Calcium Magnesium Total Bilirubin Direct Bilirubin AST ALT Alkaline Phosphatase Total Protein Albumin Triglycerides Cholesterol LDL Cholesterol, Calc HDL Cholesterol Renin Activity Aldosterone Aldosterone/Renin Ratio Vitamin B12 25-OH Vitamin D Total Folate TSH PTH Intact Calcium (PTH Intact) Urine Color Urine Appearance Urine pH Ur Specific [place] Urine Protein Urine Glucose (UA) Urine Ketones Urine Blood Urine Nitrite Ur Leukocyte Esterase Urine RBC Urine WBC Ur Squamous Epith Cells Ur Renal Epithelial Cell Urine Bacteria Salicylates Urine Opiates Screen Urine Fentanyl Screen Acetaminophen Ur Barbiturates Screen Ur Phencyclidine Scrn Ur Amphetamines Screen U Benzodiazepines Scrn Urine Cocaine Screen U Marijuana (THC) Screen T.pallidum Ab (EIA) [place] species DNA Chlam trachomat DNA PCR COVID-19 (THEE) COVID-19 Clin Com [place] DNA Probe N.gonorrhoeae DNA (PCR) Trichomonas DNA Probe 12/06/21 12/06/21 12/07/21 16:27 20:39 07:47 WBC RBC Hgb Hct MCV MCH MCHC RDW Plt Count MPV Immature Gran % (Auto) Neut % (Auto) Lymph % (Auto) [place] % (Auto) Eos % (Auto) Baso % (Auto) Lymph # (Auto) [place] # (Auto) Eos # (Auto) Baso # (Auto) Abs Immat Gran (auto) Absolute Neuts (auto) Absolute Nucleated RBC Nucleated RBC % (auto) Sodium Potassium Chloride Carbon Dioxide Anion Gap BUN Creatinine Estim Creat Clear Calc Estimated GFR POC Glucose 305 H 144 H 163 H Random Glucose Fasting Glucose Estimat Average Glucose Hemoglobin A1c % Calcium Ionized Calcium Magnesium Total Bilirubin Direct Bilirubin AST ALT Alkaline Phosphatase Total Protein Albumin Triglycerides Cholesterol LDL Cholesterol, Calc HDL Cholesterol Renin Activity Aldosterone Aldosterone/Renin Ratio Vitamin B12 25-OH Vitamin D Total Folate TSH PTH Intact Calcium (PTH Intact) Urine Color Urine Appearance Urine pH Ur Specific [place] Urine Protein Urine Glucose (UA) Urine Ketones Urine Blood Urine Nitrite Ur Leukocyte Esterase Urine RBC Urine WBC Ur Squamous Epith Cells Ur Renal Epithelial Cell Urine Bacteria Salicylates Urine Opiates Screen Urine Fentanyl Screen Acetaminophen Ur Barbiturates Screen Ur Phencyclidine Scrn Ur Amphetamines Screen U Benzodiazepines Scrn Urine Cocaine Screen U Marijuana (THC) Screen T.pallidum Ab (EIA) [place] species DNA Chlam trachomat DNA PCR COVID-19 (THEE) COVID-19 Clin Com [place] DNA Probe N.gonorrhoeae DNA (PCR) Trichomonas DNA Probe 12/07/21 11:48 WBC RBC Hgb Hct MCV MCH MCHC RDW Plt Count MPV Immature Gran % (Auto) Neut % (Auto) Lymph % (Auto) [place] % (Auto) Eos % (Auto) Baso % (Auto) Lymph # (Auto) [place] # (Auto) Eos # (Auto) Baso # (Auto) Abs Immat Gran (auto) Absolute Neuts (auto) Absolute Nucleated RBC Nucleated RBC % (auto) Sodium Potassium Chloride Carbon Dioxide Anion Gap BUN Creatinine Estim Creat Clear Calc Estimated GFR POC Glucose 271 H Random Glucose Fasting Glucose Estimat Average Glucose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
[2021-12-07 16:35] LABS: Glucose, Whole Blood 170 mg/dL (60-115)
[2021-12-07 18:00] VITALS: BP 130/80; PULSE 84; RESP 18; TEMP 36.4; O2SAT 96
[2021-12-07 20:43] LABS: Glucose, Whole Blood 141 mg/dL (60-115)
[2021-12-07] MEDS: Atorvastatin Calcium 40 MG TABLET PO (20:55)
[2021-12-07] MEDS: Mirtazapine 7.5 MG TABLET PO (20:59)
[2021-12-07] MEDS: Docusate Sodium 100 MG CAPSULE 200 MG PO (20:59)
[2021-12-07] MEDS: lamoTRIgine 100 MG TABLET PO (20:59)
[2021-12-07] MEDS: clonazePAM 0.5 MG TABLET 1.5 MG PO (20:59)
[2021-12-07] MEDS: QUEtiapine Fumarate 100 MG TABLET PO (21:00)
[2021-12-07] MEDS: Prazosin HCL 5 MG CAPSULE 10 MG PO (21:00)
[2021-12-07] MEDS: Sennosides 8.6 MG TABLET PO (21:00)
[2021-12-07] MEDS: traZODone HCL 100 MG TABLET 300 MG PO (21:00)
[2021-12-08] MEDS: Omeprazole 20 MG CAPSULE.DR PO (05:31)
[2021-12-08 07:55] LABS: Glucose, Whole Blood 208 mg/dL (60-115)
[2021-12-08 08:00] VITALS: BP 157/90; PULSE 96; TEMP 35.7; O2SAT 97
[2021-12-08] MEDS: Cholecalciferol (Vitamin D3) 25 MCG TABLET 50 MCG PO (08:10)
[2021-12-08] MEDS: Insulin Glargine,Hum.rec.anlog 100 UNIT/ML 10 ML VIAL 64 UNIT SUBCUT (08:12)
[2021-12-08] MEDS: Insulin Lispro 100 UNIT/ML 3 ML VIAL SUBCUT (08:13)
[2021-12-08] MEDS: Multivitamin TABLET 1 TAB PO (08:13)
[2021-12-08] MEDS: Losartan Potassium 50 MG TABLET PO (08:14)
[2021-12-08] MEDS: risperiDONE 1 MG TABLET PO (08:14)
[2021-12-08] MEDS: glyBURIDE 5 MG TABLET PO (08:14)
[2021-12-08] MEDS: SITagliptin Phosphate 100 MG TABLET PO (08:14)
[2021-12-08] MEDS: lamoTRIgine 25 MG TABLET PO (08:14)
[2021-12-08] MEDS: metFORMIN HCl 500 MG TABLET PO (08:14)
--- NOTE | 2021-12-08 11:00 | P.PNPSI_ITS ---
Subjective Subjective Date of Service: 12/08/21 Reason For Visit: Depression with SI Subjective Notes: Conditional Voluntary Interim History: Patient was seen and discussed in rounds today. She is being discharged today. Discharge planning, medications hand upcoming appointments were reviewed. She will be seen at the and. Today I had a chance to also talk to her daughter was present. No complaints and no side effects. No changes were made and patient will proceed with her being discharged Medication Compliance: Yes Side effects from medications: No Review of Systems Review of Systems Yes all other systems are reviewed and are negative Mental Status Exam Mental Status Exam Narrative: In today's visit she is alert, oriented x2. Speech is normal. Good eye contact. Affect is appropriate and varied. No signs of psychosis. No SI. Cognitively she does have some impairments as it has been previously noted. Judgment is intact. Diagnostics Vital Signs (24Hr): Vital Signs - 24 hr 12/07/21 18:00 12/08/21 08:00 Temperature 97.6 F 96.3 F L Pulse Rate 84 96 Respiratory Rate 18 Blood Pressure 130/80 157/90 H Pulse Oximetry 96 97 BMI result Body Mass Index 25.0 Labs Results: 11/30/21 20:03 12/02/21 07:20 Labs: Laboratory Results - last 48 hr 12/03/21 12/06/21 12/06/21 12:31 11:35 16:27 POC Glucose 228 H 305 H Ionized Calcium 5.2 12/06/21 12/07/21 12/07/21 20:39 07:47 11:48 POC Glucose 144 H 163 H 271 H Ionized Calcium 12/07/21 12/07/21 12/08/21 16:32 20:39 07:50 POC Glucose 170 H 141 H 208 H Ionized Calcium Imaging Radiology Impressions: ITS Impressions Head CT 12/03/21 15:53 IMPRESSION: No acute findings. Mild nonspecific periventricular white matter disease. Medications Medications Current Medications Acetaminophen (Acetaminophen 325 Mg Tablet) 650 mg PO Q6H PRN PRN Reason: Headache/Pain Mild Scale (1-3) Last Admin: 12/06/21 20:17 Dose: 650 mg Documented by: Al Hydroxide/Mg Hydroxide (Magnesium Hydrox/Alum Hydrox 30 Ml Oral.Susp) 30 ml PO Q6H PRN PRN Reason: Heartburn/Nausea Atorvastatin Calcium (Atorvastatin Calcium 40 Mg Tablet) 40 mg PO BEDTIME [facility] Last Admin: 12/07/21 20:55 Dose: 40 mg Documented by: Clonazepam (Clonazepam 0.5 Mg Tablet) 1.5 mg PO BEDTIME [facility] Last Admin: 12/07/21 20:59 Dose: 1.5 mg Documented by: Dextrose (Dextrose 50 % 25 Gm/50 Ml Syringe) 25 gm IVPUSH Q15M PRN; Protocol PRN Reason: per Hypoglycemia Standing Ord. Docusate Sodium (Docusate Sodium 100 Mg Capsule) 200 mg PO BEDTIME [facility] Last Admin: 12/07/21 20:59 Dose: 200 mg Documented by: Glucose (Glucose Gel 15 Gm Gel..Gram.) 15 gm PO Q15M PRN; Protocol PRN Reason: per Hypoglycemia Standing Ord. Glyburide (Glyburide 5 Mg Tablet) 5 mg PO BIDWM [facility] Last Admin: 12/08/21 08:14 Dose: 5 mg Documented by: Hydroxyzine HCl (Hydroxyzine Hcl 25 Mg Tablet) 25 mg PO BEDTIME PRN PRN Reason: Anxiety Insulin Glargine (Insulin Glargine,Hum.Rec.Anlog 100 Unit/Ml 10 Ml Vial) 64 unit SUBCUT DAILY [facility] Last Admin: 12/08/21 08:12 Dose: 64 unit Documented by: Insulin Human Lispro (Insulin Lispro 100 Unit/Ml 3 Ml Vial) 0 unit SUBCUT QIDACHS [facility]; Protocol Last Admin: 12/08/21 08:13 Dose: 4 unit Documented by: Lamotrigine (Lamotrigine 100 Mg Tablet) 100 mg PO BEDTIME [facility] Last Admin: 12/07/21 20:59 Dose: 100 mg Documented by: Lamotrigine (Lamotrigine 25 Mg Tablet) 25 mg PO DAILY [facility] Last Admin: 12/08/21 08:14 Dose: 25 mg Documented by: Losartan Potassium (Losartan Potassium 50 Mg Tablet) 50 mg PO DAILY [facility]; Protocol Last Admin: 12/08/21 08:14 Dose: 50 mg Documented by: Magnesium Hydroxide (Milk Of Magnesia 30 Ml Oral.Susp) 30 ml PO DAILY PRN PRN Reason: Constipation Last Admin: 12/02/21 17:29 Dose: 30 ml Documented by: Metformin HCl (Metformin Hcl 500 Mg Tablet) 500 mg PO BIDWM [facility] Last Admin: 12/08/21 08:14 Dose: 500 mg Documented by: Mirtazapine (Mirtazapine 7.5 Mg Tablet) 7.5 mg PO BEDTIME [facility] Last Admin: 12/07/21 20:59 Dose: 7.5 mg Documented by: Multivitamins/Vitamin C (Multivitamin Tablet) 1 tab PO DAILY [facility] Last Admin: 12/08/21 08:13 Dose: 1 tab Documented by: Omeprazole (Omeprazole 20 Mg Capsule.) 20 mg PO DAILY@0630 [facility] Last Admin: 12/08/21 05:31 Dose: 20 mg Documented by: Prazosin HCl (Prazosin Hcl 5 Mg Capsule) 10 mg PO BEDTIME [facility]; Protocol Last Admin: 12/07/21 21:00 Dose: 10 mg Documented by: Quetiapine Fumarate (Quetiapine Fumarate 100 Mg Tablet) 100 mg PO BEDTIME [facility] Last Admin: 12/07/21 21:00 Dose: 100 mg Documented by: Risperidone (Risperidone 1 Mg Tablet) 1 mg PO BID [facility] Last Admin: 12/08/21 08:14 Dose: 1 mg Documented by: Senna (Sennosides 8.6 Mg Tablet) 8.6 mg PO BEDTIME [facility] Last Admin: 12/07/21 21:00 Dose: 8.6 mg Documented by: Sitagliptin Phosphate (Sitagliptin Phosphate 100 Mg Tablet) 100 mg PO DAILY [facility] Last Admin: 12/08/21 08:14 Dose: 100 mg Documented by: Trazodone HCl (Trazodone Hcl 100 Mg Tablet) 300 mg PO BEDTIME [facility] Last Admin: 12/07/21 21:00 Dose: 300 mg Documented by: Vitamin D (Cholecalciferol (Vitamin D3) 25 Mcg Tablet) 50 mcg PO DAILY [facility] Last Admin: 12/08/21 08:10 Dose: 50 mcg Documented by: Allergies Allergies Allergy/AdvReac Type Severity Reaction Status Date / Time Penicillins [PENICILLINS] Allergy Intermediate ITCH/RASH Verified 11/07/21 11:42 sulfamethoxazole Allergy Intermediate RASH Verified 11/07/21 11:42 [From Bactrim] sumatriptan Allergy Intermediate rash Verified 11/07/21 11:42 trimethoprim [From Bactrim] Allergy Intermediate RASH Verified 11/07/21 11:42 pepperoni Allergy Intermediate rash Uncoded 11/07/21 11:42 Assessment & Plan Assessment & Plan (1) MDD (major depressive disorder), recurrent episode, moderate: Status: Acute Code(s): F33.1 - Major depressive disorder, recurrent, moderate (2) 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 Rule out illicit drug abuse. Plan CV 15 min check will add sliding scale insulin continue current home meds 12/03- started on risperidone 1mg po bid, will complete moca, daughter denies hx of substance use. 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 12/04 continue current medications. 12/05 continue current medications. MOCA completed - vascular pattern of cognitive decline. 12/07 continue current medications- d/c 12/08 12/08 continue with plans for discharge today I spent minutes with the patient and/or on the patient floor today, greater than?50% of which was spent counseling/coordinating care. Patient educated on: medication risk/benefits Reason for contiued inpatient stay Substantial Risk for: stable for discharge
--- NOTE | 2021-12-08 11:35 | PC.NURSE ---
Patient was aware and ready for discharge. Paperwork reviewed with patient and daughter . Next dose medications and follow appointment explained to patient and daughter. Both verbalized understanding. Patient was accompanied with belongings to the front of the building per hospital policy.
[2021-12-10 05:01] LABS: Aldosterone/Renin Ratio 4.4 Ratio (0.9-28.9); Plasma Renin Activity 3.18 ng/mL/h (0.25-5.82)
== END 2021-12-08 11:15 | disposition home or self-care (01) | DRG 885 ==
LOC: HO.ED 15:36 → HO.PGERI 12-01 10:40
PROVIDERS: Emergency Medicine; Physician Assistant; Admitting Provider Clinical Nurse Specialist Psychiatric/Mental Health; Emergency Provider Emergency Medicine; Visit Provider Social Worker
DX: F33.1 Major depressive disorder, recurrent, moderate (principal); R45.851 Suicidal ideations; F01.51 Vascular dementia, unspecified severity, with behavioral disturbance; F43.10 Post-traumatic stress disorder, unspecified; E11.9 Type 2 diabetes mellitus without complications; E78.5 Hyperlipidemia, unspecified; Z20.822 Contact with and (suspected) exposure to COVID-19; Z90.710 Acquired absence of both cervix and uterus; Z88.0 Allergy status to penicillin; Z88.2 Allergy status to sulfonamides; Z79.4 Long term (current) use of insulin; Z79.899 Other long term (current) drug therapy
CPT/HCPCS: 36415; 70450; 80048; 80053; 80061; 80076; 80143; 80179; 80307; 81001; 81003; 82088; 82306; 82330; 82607; 82746; 82947; 83036; 83735; 83970; 84443; 85025; 86780; 87480; 87491; 87510; 87591; 87635; 87660; 93005; 99285

== ENCOUNTER 2021-12-19 12:16 | Emergency (ER) | payer OTHER, SELFPAY ==
[2021-12-19 12:25] VITALS: BP 128/80; PULSE 100; O2SAT 97
[2021-12-19] MEDS: 0.9 % Sodium Chloride 1,000 ML 999 ML IV (12:30)
--- NOTE | 2021-12-19 12:30 | PC.NURSE ---
Patient arrives via EMS for elevated blood sugar. Patient recently had her medications changed. Alert and oriented. Reports headache at this time and dizziness. IV established by EMS. Patient ambulates to bathroom with balanced gait. Respirations regular and even. Skin PWD. Awaiting labwork.
[2021-12-19 12:33] VITALS: BP 144/81; PULSE 80; RESP 17; TEMP 36.7; O2SAT 98; BMI 23.3
--- NOTE | 2021-12-19 12:35 | ED_ITS ---
HPI - General Adult General Chief complaint: General Medical Stated complaint: HIGH BS ALL WEEK, 448 PER EMS Time Seen by Provider: 12/19/21 12:23 Source: patient, EMS and old records reviewed History of Present Illness HPI narrative: Patient states her blood sugars been elevated for approximately the past 8 days. This started ever since she has been discharged from inpatient psychiatry here. She attributes the not feeling well and had blood sugar to a change in medication. They changed her from trazodone at night to Risperdal twice daily. She has never been on this before. She denies other potential causes such as fevers chills cough or other illn esses. She does have chronic abdominal pain for which he has been worked up and it has been attributed to constipation. She sees Gastroenterology for this. No other new complaints. She states her blood sugars never been quite out of control like this before. Positive nausea vomiting this morning. She has epigastric pain but states that is chronic as well as her left lower quadrant pain as mentioned above. No new urinary symptoms. She feels dizzy and lightheaded and attributes that to the high sugar Related Data Home Medications Medication Instructions Recorded Confirmed cholecalciferol (vitamin D3) 50 50 mcg PO DAILY 05/30/20 11/30/21 mcg (2,000 unit) tablet (Vitamin D3) clonazepam 1 mg tablet 1.5 mg PO BEDTIME PRN 05/30/20 11/30/21 insulin glargine 100 unit/mL 64 unit SUBCUT QAM 05/30/20 11/30/21 subcutaneous solution (Lantus U-100 Insulin) losartan 50 mg tablet 50 mg PO DAILY 05/30/20 11/30/21 mirtazapine 7.5 mg tablet 7.5 mg PO BEDTIME 05/30/20 11/30/21 multivitamin 1 tab PO DAILY 05/30/20 11/30/21 prazosin 5 mg capsule 10 mg PO BEDTIME 05/30/20 11/30/21 sitagliptin 100 mg tablet (Januvia) 100 mg PO DAILY 05/30/20 11/30/21 sennosides 8.6 mg capsule (senna) 8.6 mg PO BEDTIME 02/22/21 11/30/21 atorvastatin 40 mg tablet 1 tab PO BEDTIME 11/30/21 11/30/21 clonazepam 0.5 mg tablet 1 tab PO DAILY PRN 11/30/21 11/30/21 glyburide 5 mg-metformin 500 mg 1 tab PO BID 11/30/21 11/30/21 tablet lamotrigine 100 mg tablet 100 mg PO BEDTIME 11/30/21 11/30/21 (Lamictal) linaclotide 145 mcg capsule 1 cap PO DAILY 11/30/21 11/30/21 (Linzess) trazodone 150 mg tablet 2 tab PO BEDTIME 11/30/21 11/30/21 Previous Rx's Medication Instructions Recorded omeprazole 20 mg capsule,delayed 20 mg PO DAILY #30 cap 02/22/21 release docusate sodium 100 mg capsule 200 mg PO BEDTIME #60 cap 08/20/21 risperidone 1 mg tablet 1 mg PO BID #60 tab 12/07/21 Allergies Allergy/AdvReac Type Severity Reaction Status Date / Time Penicillins [PENICILLINS] Allergy Intermediate ITCH/RASH Verified 11/07/21 11:42 sulfamethoxazole Allergy Intermediate RASH Verified 11/07/21 11:42 [From Bactrim] sumatriptan Allergy Intermediate rash Verified 11/07/21 11:42 trimethoprim [From Bactrim] Allergy Intermediate RASH Verified 11/07/21 11:42 pepperoni Allergy Intermediate rash Uncoded 11/07/21 11:42 Review of Systems Constitutional: Comments: No fevers or chills or focal weakness. She does have general malaise Cardiovascular: Comments: No chest pain or palpitations Respiratory: Comments: No cough or dyspnea Gastrointestinal: Comments: Abdominal pain as mentioned Musculoskeletal: Comments: No extremity pain Integumentary/Breasts: Comments: No rash Neurologic: Comments: No focal weakness Endocrine: Comments: Insulin-dependent diabetes also on metformin and glyburide [facility] Past Medical History Medical History (Updated 12/19/21 @ 15:03 by Jude Campbell MD) Abnormal colonoscopy Anxiety Colon adenomas Depression Diabetes mellitus Gastroenteritis History of hyperopia History of lipoma Hyperlipidemia Hypertension Insomnia Irritable bowel syndrome with constipation Memory impairment Myalgia and myositis Nausea & vomiting Urinary incontinence Surgical History History of back surgery History of esophagogastroduodenoscopy (EGD) Hx of cataract extraction Hx of colonoscopy Hx of foot surgery Hx of right breast biopsy Hx of total hysterectomy Social History Social History Household Members: None Household Members Other:: none Housing: Apartment Do you presently have visiting nurse or other home services: Yes ([employer] and [employer]) Alcohol intake: never Patient Tobacco Use Status: Never used Tobacco Use of substances other than those prescribed or required for medical reasons: No Advance Directives: No Advance Directives Information Provided: Yes service: No Current occupational status: disabled Sexual orientation: Straight/Heterosexual Physical Exam ED Vital Signs: Vital Signs - 24 hr 12/19/21 12:33 12/19/21 13:44 12/19/21 14:00 Temperature 98.0 F Pulse Rate 80 78 77 Respiratory Rate 17 16 16 Blood Pressure 144/81 H 145/76 H 131/72 Pulse Oximetry 98 97 96 BMI result Body Mass Index 23.3 Const Other: Awake and alert in no acute distress HENMT Other: Mucosa dry Resp Other: Clear and equal bilaterally without wheezes rales or rhonchi Cardio Other: Regular rate and rhythm without murmurs rubs or gallops GI Other: Soft. Tenderness epigastrium and left lower quadrant. Skin Other: Warm and dry without rash. Poor turgor Neuro Other: No focal deficit Extrem Other: No calf tenderness Course Course Course Narrative: Hyperglycemia Diabetic ketoacidosis Dehydration Abdominal pain Urinary tract infection Review of recent records shows 2 CT scans in the month of October which showed no significant pathology other than constipation. Patient states abdominal pain today is similar to prior episodes without changes or increase. For this reason I do not feel we need to image her at the moment. Will treat with IV fluids, IV insulin, antiemetics,. Await labs 15:00. Patient feels much better. Repeat point of care this 264. Labs are stable and there is no evidence of diabetic ketoacidosis Her headache is improved. She is stable for discharge home. Will have her stop Risperdal and restart trazodone as per patient request Follow-up with PCP Medical Decision Making Lab Data Result diagrams: 12/19/21 13:16 12/19/21 13:16 Labs: Lab Results 12/19/21 12/19/21 12/19/21 Range/Units 13:16 13:16 13:16 WBC 12.3 H (4.8-10.8) X10*3/uL RBC 4.43 (4.20-5.50) X10*6/uL Hgb 12.2 (12.0-16.0) g/dl Hct 36.8 L (37.0-47.0) % MCV 83.1 (80.0-98.0) fL MCH 27.5 (27.0-33.0) pg MCHC 33.2 (31.0-35.0) g/dl RDW 12.1 (11.0-16.0) % Plt Count 257 (160-400) X10*3/uL MPV 9.9 (9.4-12.3) fL Immature Gran % (Auto) 0.5 H (0.0-0.4) % Neut % (Auto) 71.2 (45-73) % Lymph % (Auto) 21.7 (20-40) % [place] % (Auto) 5.5 (2-11) % Eos % (Auto) 0.9 (0-4) % Baso % (Auto) 0.2 (0-2) % Lymph # (Auto) 2.7 (1.2-4.9) X10*3/uL [place] # (Auto) 0.7 (0.1-1.2) X10*3/uL Eos # (Auto) 0.1 (0.0-0.4) X10*3/uL Baso # (Auto) 0.0 (0.0-0.2) X10*3/uL Abs Immat Gran (auto) 0.06 H (0.00-0.03) X10*3/uL Absolute Neuts (auto) 8.8 H (2.0-8.3) x10*3/uL Absolute Nucleated RBC 0.000 (0.0-0.012) X10*3/uL Nucleated RBC % (auto) 0.0 (0.0-0.2) /100WBC Sodium 133 L (135-145) mmol/L Potassium 4.7 (3.3-5.1) mmol/L Chloride 99 (96-108) mmol/L Carbon Dioxide 28 (22-29) mmol/L Anion Gap 11 L (12-20) BUN 14 (9-16) mg/dL Creatinine 0.94 (0.5-1.4) mg/dL Estim Creat Clear Calc 55.8 Estimated GFR 60 POC Glucose (60-115) mg/dL Random Glucose 422 H* (60-115) mg/dL Calcium 9.4 D (8.4-10.2) mg/dL Total Bilirubin 0.2 (0.0-1.0) mg/dL AST 28 (5-31) U/L ALT 32 H (0-31) U/L Alkaline Phosphatase 118 H D (39-117) U/L Total Protein 6.5 (6.5-8.0) g/dL Albumin 3.9 (3.5-5.0) g/dL Lipase 43 (8-78) U/L Urine Color Urine Appearance Urine pH (5.0-8.0) Ur Specific [place] (1.005-1.025) Urine Protein (NEG-TRACE) MG/DL Urine Glucose (UA) (NEG) MG/DL Urine Ketones (NEG) MG/DL Urine Blood (NEG) Urine Nitrite (NEG) Ur Leukocyte Esterase (NEG) Urine RBC (0) /HPF Urine WBC (0-4) /HPF Ur Squamous Epith Cells /LPF Urine Bacteria /LPF Urine Yeast /HPF Acetone, Qual Negative (Negative) 12/19/21 12/19/21 Range/Units 13:47 14:31 WBC (4.8-10.8) X10*3/uL RBC (4.20-5.50) X10*6/uL Hgb (12.0-16.0) g/dl Hct (37.0-47.0) % MCV (80.0-98.0) fL MCH (27.0-33.0) pg MCHC (31.0-35.0) g/dl RDW (11.0-16.0) % Plt Count (160-400) X10*3/uL MPV (9.4-12.3) fL Immature Gran % (Auto) (0.0-0.4) % Neut % (Auto) (45-73) % Lymph % (Auto) (20-40) % [place] % (Auto) (2-11) % Eos % (Auto) (0-4) % Baso % (Auto) (0-2) % Lymph # (Auto) (1.2-4.9) X10*3/uL [place] # (Auto) (0.1-1.2) X10*3/uL Eos # (Auto) (0.0-0.4) X10*3/uL Baso # (Auto) (0.0-0.2) X10*3/uL Abs Immat Gran (auto) (0.00-0.03) X10*3/uL Absolute Neuts (auto) (2.0-8.3) x10*3/uL Absolute Nucleated RBC (0.0-0.012) X10*3/uL Nucleated RBC % (auto) (0.0-0.2) /100WBC Sodium (135-145) mmol/L Potassium (3.3-5.1) mmol/L Chloride (96-108) mmol/L Carbon Dioxide (22-29) mmol/L Anion Gap (12-20) BUN (9-16) mg/dL Creatinine (0.5-1.4) mg/dL Estim Creat Clear Calc Estimated GFR POC Glucose 264 H (60-115) mg/dL Random Glucose (60-115) mg/dL Calcium (8.4-10.2) mg/dL Total Bilirubin (0.0-1.0) mg/dL AST (5-31) U/L ALT (0-31) U/L Alkaline Phosphatase (39-117) U/L Total Protein (6.5-8.0) g/dL Albumin (3.5-5.0) g/dL Lipase (8-78) U/L Urine Color YELLOW Urine Appearance CLEAR Urine pH 7.0 (5.0-8.0) Ur Specific [place] 1.010 (1.005-1.025) Urine Protein NEG (NEG-TRACE) MG/DL Urine Glucose (UA) >=1000 H (NEG) MG/DL Urine Ketones NEG (NEG) MG/DL Urine Blood NEG (NEG) Urine Nitrite NEG (NEG) Ur Leukocyte Esterase NEG (NEG) Urine RBC 0 (0) /HPF Urine WBC 0-2 (0-4) /HPF Ur Squamous Epith Cells TRACE /LPF Urine Bacteria NONE /LPF Urine Yeast TRACE /HPF Acetone, Qual (Negative) Discharge Plan Discharge Clinical Impression: Acute hyperglycemia Patient Disposition: Home, Self-Care Instructions: Diabetic Hyperglycemia (ED) Additional Instructions: Stop Risperdal as discussed. You may restart trazodone. Be sure to check your blood sugar levels at home at least twice daily. Prescriptions: No Action docusate sodium 100 mg capsule 200 mg PO BEDTIME Qty: 60 5RF multivitamin Tablet 1 tab PO DAILY 0RF losartan 50 mg Tablet 50 mg PO DAILY 0RF clonazepam 1 mg Tablet 1.5 mg PO BEDTIME PRN (Reason: Anxiety) 0RF prazosin 5 mg Capsule 10 mg PO BEDTIME 0RF mirtazapine 7.5 mg Tablet 7.5 mg PO BEDTIME 0RF Januvia 100 mg Tablet 100 mg PO DAILY 0RF cholecalciferol (vitamin D3) [Vitamin D3] 50 mcg (2,000 unit) Tablet 50 mcg PO DAILY 0RF Lantus U-100 Insulin 100 unit/mL Solution 64 unit SUBCUT QAM 0RF atorvastatin 40 mg tablet 1 tab PO BEDTIME 0RF lamotrigine [Lamictal] 100 mg Tablet 100 mg PO BEDTIME 0RF trazodone 150 mg tablet 2 tab PO BEDTIME 0RF clonazepam 0.5 mg tablet 1 tab PO DAILY PRN (Reason: Anxiety) 0RF glyburide-metformin 5-500 mg tablet 1 tab PO BID 0RF Linzess 145 mcg capsule 1 cap PO DAILY 0RF risperidone 1 mg Tablet 1 mg PO BID Qty: 60 0RF senna 8.6 mg capsule 8.6 mg PO BEDTIME 0RF omeprazole 20 mg capsule,delayed release(DR/EC) 20 mg PO DAILY Qty: 30 5RF
[2021-12-19 13:20] LABS: MANUAL DIFF FLAG NO
[2021-12-19 13:22] LABS: Basophils Percent Auto 0.2 % (0-2); Eosinophils Absolute Auto 0.1 X10*3/uL (0.0-0.4); Eosinophils Percent Auto 0.9 % (0-4); Hematocrit 36.8 % (37.0-47.0); Hemoglobin 12.2 g/dl (12.0-16.0); Imm Gran Abs Auto 0.06 X10*3/uL (0.00-0.03); Imm Gran Pct Auto 0.5 % (0.0-0.4); Lymphocytes Absolute Auto 2.7 X10*3/uL (1.2-4.9); Lymphocytes Percent Auto 21.7 % (20-40); Mean Corpuscular HGB Conc 33.2 g/dl (31.0-35.0); Mean Corpuscular Hemoglobin 27.5 pg (27.0-33.0); Mean Corpuscular Volume 83.1 fL (80.0-98.0); Mean Platelet Volume 9.9 fL (9.4-12.3); Monocytes Absolute Auto 0.7 X10*3/uL (0.1-1.2); Monocytes Percent Auto 5.5 % (2-11); Neutrophils Absolute Auto 8.8 x10*3/uL (2.0-8.3); Neutrophils Percent Auto 71.2 % (45-73); Platelet Count 257 X10*3/uL (160-400); Red Blood Count 4.43 X10*6/uL (4.20-5.50); Red Cell Distribution Width 12.1 % (11.0-16.0); White Blood Count 12.3 X10*3/uL (4.8-10.8)
[2021-12-19 13:31] LABS: Acetone, serum QL Negative (Negative)
[2021-12-19] MEDS: ondansetron HCL 4 MG/2 ML VIAL IVPUSH (13:32)
[2021-12-19] MEDS: Insulin Regular, Human 100 UNIT/ML 3 ML VIAL 10 UNIT IVPUSH (13:34)
[2021-12-19 13:43] LABS: Alanine Aminotransferase 32 U/L (0-31); Albumin Level 3.9 g/dL (3.5-5.0); Alkaline Phosphatase 118 U/L (39-117); Anion Gap 11 (12-20); Aspartate Amino Transferase 28 U/L (5-31); Bilirubin Total 0.2 mg/dL (0.0-1.0); Blood Urea Nitrogen 14 mg/dL (9-16); Calcium 9.4 mg/dL (8.4-10.2); Carbon Dioxide 28 mmol/L (22-29); Chloride 99 mmol/L (96-108); Creatinine Clr Calc Pharmacy 55.8; Estimated Glomerular Filt Rate 60; Glucose Random 422 mg/dL (60-115); Lipase 43 U/L (8-78); Potassium 4.7 mmol/L (3.3-5.1); Sodium 133 mmol/L (135-145); Total Protein 6.5 g/dL (6.5-8.0)
[2021-12-19 13:44] VITALS: BP 145/76; PULSE 78; RESP 16; O2SAT 97
[2021-12-19 13:56] LABS: Appearance Urine CLEAR; Color Urine YELLOW; Glucose Urine UA >=1000 MG/DL (NEG); Leukocyte Esterase Urine NEG (NEG); Nitrite Urine NEG (NEG); Urine Blood NEG (NEG); Urine Ketones NEG (NEG); Urine Protein NEG (NEG-TRACE)
[2021-12-19 14:00] VITALS: BP 131/72; PULSE 77; RESP 16; O2SAT 96
[2021-12-19] MEDS: Ketorolac Tromethamine 15 MG/ML VIAL 30 MG IVPUSH (14:33)
[2021-12-19] MEDS: Metoclopramide HCl 10 MG/2 ML VIAL IVPUSH (14:34)
[2021-12-19 14:35] LABS: Squamous Epithelial Cell Urine TRACE /LPF
[2021-12-19 14:36] LABS: WBC Urine 0-2 /HPF (0-4)
[2021-12-19 14:37] LABS: RBC Urine 0 /HPF (0)
[2021-12-19 14:41] LABS: Glucose, Whole Blood 264 mg/dL (60-115)
== END 2021-12-19 15:54 | disposition home or self-care (01) ==
PROVIDERS: Emergency Provider Emergency Medicine; PCP Internal Medicine
DX: E11.65 Type 2 diabetes mellitus with hyperglycemia (principal); R10.9 Unspecified abdominal pain; R51.9 Headache, unspecified; I10 Essential (primary) hypertension; F32.A Depression, unspecified; Z79.899 Other long term (current) drug therapy
CPT/HCPCS: 36415; 80053; 81001; 81003; 82009; 82947; 83690; 85025; 96361; 96374; 96375; 99284; J1885; J2405; J2765

== ENCOUNTER → 2022-05-15 09:29 | Outpatient (BNVA) | payer OTHER, SELFPAY | PROVIDERS: PCP Internal Medicine; Visit Provider Internal Medicine Endocrinology, Diabetes & Metabolism | DX: E11.9 Type 2 diabetes mellitus without complications (principal) | CPT/HCPCS: 82947; 83036; 99202 ==

== ENCOUNTER → 2022-06-19 10:29 | Outpatient (BNVA) | payer OTHER, SELFPAY | PROVIDERS: PCP Internal Medicine; Visit Provider Registered Nurse Diabetes Educator | DX: E11.9 Type 2 diabetes mellitus without complications (principal) | CPT/HCPCS: 99211 ==

== ENCOUNTER 2022-08-30 10:00 | Outpatient (REF) | payer OTHER, SELFPAY ==
[2022-08-30 11:49] LABS: Cholesterol 128 mg/dL; HDL Cholesterol 53 mg/dL; LDL Cholesterol Calculated 33 mg/dl; Triglycerides 210 mg/dL
[2022-08-30 11:51] LABS: Creatinine Urine 143.68 mg/dL
[2022-08-30 12:06] LABS: Microalbum/Creatinine Ratio Ur 501.8 ug/mg cr
== END 2022-08-30 10:01 | disposition home or self-care (01) ==
LOC: HO.LAB 10:00
PROVIDERS: Visit Provider Internal Medicine Endocrinology, Diabetes & Metabolism
DX: E11.9 Type 2 diabetes mellitus without complications (principal)
CPT/HCPCS: 36415; 80061; 82043

== ENCOUNTER → 2022-09-04 10:00 | Outpatient (BNVA) | payer OTHER, SELFPAY | PROVIDERS: PCP Internal Medicine; Visit Provider Internal Medicine Endocrinology, Diabetes & Metabolism | DX: E11.9 Type 2 diabetes mellitus without complications (principal) | CPT/HCPCS: 82947; 83036; 99212 ==

== ENCOUNTER → 2022-11-27 10:11 | Outpatient (BNVA) | payer OTHER, SELFPAY | PROVIDERS: PCP Internal Medicine; Visit Provider Dietitian, Registered | DX: E11.9 Type 2 diabetes mellitus without complications (principal) | CPT/HCPCS: 97802 ==

== ENCOUNTER 2022-12-27 10:23 | Outpatient (REF) | payer OTHER, SELFPAY ==
[2022-12-27 12:52] LABS: Anion Gap 22 (12-20); Blood Urea Nitrogen 12 mg/dL (9-16); Calcium 10.5 mg/dL (8.4-10.2); Carbon Dioxide 20 mmol/L (22-29); Chloride 103 mmol/L (96-108); Estimated Glomerular Filt Rate > 60; Glucose Random 132 mg/dL (60-115); Potassium 4.8 mmol/L (3.3-5.1); Sodium 140 mmol/L (135-145)
== END 2022-12-27 10:24 | disposition home or self-care (01) ==
LOC: HO.LAB 10:23
PROVIDERS: Visit Provider Internal Medicine Endocrinology, Diabetes & Metabolism
DX: E11.9 Type 2 diabetes mellitus without complications (principal)
CPT/HCPCS: 36415; 80048

== ENCOUNTER 2023-01-01 09:17 | Outpatient (REF) | payer OTHER, SELFPAY ==
[2023-01-03 15:33] LABS: Calcium (PTHI) 10.5 mg/dL (8.6-10.4); PTHI 34 pg/mL (16-77)
== END 2023-01-01 09:18 | disposition home or self-care (01) ==
LOC: HO.LAB 09:17
PROVIDERS: Visit Provider Internal Medicine Endocrinology, Diabetes & Metabolism
DX: E11.9 Type 2 diabetes mellitus without complications (principal); E83.52 Hypercalcemia
CPT/HCPCS: 36415; 82947; 83036; 83970; 99212

== ENCOUNTER 2023-01-15 09:13 | Outpatient (REF) | payer OTHER, SELFPAY ==
--- NOTE | ~2023-01-15 | CT_ITS ---
EXAMINATION: CT ABDOMEN AND PELVIS WITH CONTRAST CLINICAL INFORMATION: Worsening chronic abdominal pain. COMPARISON: None available. TECHNIQUE: Multidetector volumetric images were obtained from the superior aspect of the liver through the pubic symphysis following administration 85 mL of Omnipaque 350 intravenous contrast. Sagittal and coronal reformatted images were obtained on the technologist's workstation. Oral contrast: No This CT examination was performed using dose optimization techniques as appropriate, variously including the following: *Automated exposure control *Adjustment of mA and/or kV according to patient size (this includes techniques or standardized protocols for targeted exams where dose is matched to indication/reason for exam; i.e. extremities or head) *Use of iterative reconstruction technique DLP: 363 mGy-cm FINDINGS: LUNG BASES: The lung bases are clear. There is a 2 mm calcified nodule left lower lobe image /6. Heart size is normal. LIVER, GALLBLADDER, AND BILIARY TREE: The liver is normal in size, shape, and mild hypoattenuation. No focal hepatic lesion or biliary ductal dilatation is present. The gallbladder is unremarkable with no evidence of radiopaque gallstones, gallbladder wall thickening, or obvious pericholecystic inflammatory changes. PANCREAS: Unremarkable. SPLEEN: Unremarkable. ADRENAL GLANDS: Unremarkable. KIDNEYS AND URETERS: The kidneys are normal in size, shape, and attenuation. No hydronephrosis, hydroureter, or calculi seen. There is mild bilateral perinephric stranding. BLADDER: Unremarkable. GASTROINTESTINAL TRACT: Scattered stool and gas is seen throughout the colon without distention. Oral contrast opacified small bowel loops are normal caliber. Appendix is not visualized. No inflammatory process or free air seen. ABDOMINAL WALL: No significant hernia is appreciated. LYMPH NODES: Normal. VASCULAR: Unremarkable. PELVIC VISCERA: Unremarkable. OSSEOUS STRUCTURES: There are disc prostheses at L4-L5 and L5-S1 disc level stabilized with posterior hardware extending from L4 through S1 vertebrae. CT/CT abdomen pelvis w IV con IMPRESSION: 1. No acute intra-abdominal process seen. 2. Mild constipation. 3. Mild hepatic fatty infiltration. Fleischner guidelines were followed.
[2023-01-15] MEDS: Barium Sulfate Oral (Berry) 450 ML ORAL.SUSP 900 ML PO (12:04)
[2023-01-15] MEDS: iohexoL 350 MG/ML 100 ML INFUS..BTL IV (12:05)
== END 2023-01-15 09:14 | disposition home or self-care (01) ==
LOC: HO.CT 09:13
PROVIDERS: PCP General Practice; Visit Provider General Practice
DX: R10.13 Epigastric pain (principal)
CPT/HCPCS: 74177; Q9967

== ENCOUNTER 2023-05-06 13:30 | Emergency (ER) | payer OTHER, SELFPAY ==
[2023-05-06] VITALS (8 sets, daily range): BP systolic 138–184; BP diastolic 80–89; PULSE 79–94; RESP 14–20; TEMP 36.6–36.9; O2SAT 94–98; BMI 29.5
--- NOTE | ~2023-05-06 | CT_ITS ---
EXAMINATION: CT ABDOMEN AND PELVIS WITH CONTRAST CLINICAL INFORMATION: Abdominal pain. COMPARISON: 01/15/2023 TECHNIQUE: Multidetector volumetric images were obtained from the superior aspect of the liver through the pubic symphysis following administration 85 mL of Omnipaque 350 intravenous contrast. Sagittal and coronal reformatted images were obtained on the technologist's workstation. Oral contrast: No This CT examination was performed using dose optimization techniques as appropriate, variously including the following: *Automated exposure control *Adjustment of mA and/or kV according to patient size (this includes techniques or standardized protocols for targeted exams where dose is matched to indication/reason for exam; i.e. extremities or head) *Use of iterative reconstruction technique DLP: 573 mGy-cm FINDINGS: LUNG BASES: Linear opacities of mild atelectasis or scarring in medial segment of right middle lobe and lateral left lower lobe. No pulmonary consolidation or pleural effusion. LIVER: Liver has normal size and contour. There is normal variation in configuration of the left lobe which is elongated and approaches the spleen in the left upper quadrant. No focal liver lesion. GALLBLADDER AND BILIARY TREE: Gallbladder is without radiopaque stones, wall thickening or pericholecystic fluid. No dilated bile ducts. PANCREAS: Normal. No edema, pancreatic ductal dilatation or mass. SPLEEN: Unremarkable. ADRENAL GLANDS: Unremarkable. KIDNEYS AND URETERS: Kidneys are normal in size and enhance symmetrically. No renal stone or hydronephrosis. There appears to be minimal excretion of some contrast into each renal pelvis. No evidence of renal stones. No ureteral calculi, hydroureter or hydronephrosis. Nonspecific mild bilateral perinephric edema is unchanged. BLADDER: Normal. No calculi or wall thickening. BOWEL AND PERITONEUM: No dilated bowel loops. No focal bowel wall thickening, mesenteric fat stranding or free fluid. The appendix is not identified. However, no inflammatory changes in the right lower quadrant. ABDOMINAL WALL: Unremarkable. VASCULATURE: Mild atherosclerosis of the abdominal aorta without aneurysm. Inferior vena cava is normal. LYMPH NODES: No pathologic sized lymph nodes in the abdomen or pelvis. No inguinal lymphadenopathy. PELVIC VISCERA: Status post hysterectomy. No adnexal mass or pelvic free fluid. MUSCULOSKELETAL: Status post discectomy and spinal fusion at L4-S1. Bone graft is incorporated into the endplates at L4-L5 and L5-S1. Bilateral transpedicular screws remain well-positioned at L4 and S1. CT/CT abdomen pelvis w IV con IMPRESSION: * No acute imaging abnormalities in the abdomen or pelvis. No specific source of abdominal pain is identified. * No dilated bowel loops. No evidence of an obstructive or inflammatory process along the gastrointestinal tract. * No evidence of renal stones or hydronephrosis.
--- NOTE | ~2023-05-06 | XR_ITS ---
EXAMINATION: PORTABLE CHEST 1 VIEW CLINICAL INFORMATION: sob. COMPARISON: 01/25/2018. TECHNIQUE: Portable frontal view of the chest was obtained. FINDINGS: The lungs are well expanded. No focal infiltrate, effusion, edema, or pneumothorax. Cardiac and mediastinal silhouettes are within normal limits for technique. No acute bony abnormality seen with degenerative changes in the spine and shoulders again noted. XR/XR chest 1V IMPRESSION: No evidence of acute disease.
--- NOTE | 2023-05-06 13:40 | ED.GENADULT ---
HPI - General Adult General Chief complaint: Nausea/Vomiting/Diarrhea Stated complaint: N/V/D X 3 DAYS Time Seen by Provider: 05/06/23 13:39 Source: patient and EMS Mode of arrival: EMS Limitations: no limitations History of Present Illness HPI narrative: This is a 67-year-old female history of anxiety, colon adenomas, depression, diabetes, gastroenteritis, hypertension, insomnia, irritable bowel syndrome with constipation, memory impairment, myalgias and myositis presenting to the emergency department for evaluation of diffuse abdominal pain ( diffuse, severe, stabbing, 07/04), nausea, vomiting and diarrhea that has been ongoing for the past 3 days. According to patient she had a Dr. go to her house and tell her that she had an abnormal labs, and they advised her to come into the emergency department for further evaluation and treatment. Patient reports she feels terrible. Also feeling weak, fatigued with associated malaise. Patient denies fevers, chills, chest pain, shortness of breath, headache, vision changes, changes in urination and bowel habits Related Data Home Medications Medication Instructions Recorded Confirmed cholecalciferol (vitamin D3) 50 50 mcg PO DAILY 05/30/20 09/04/22 mcg (2,000 unit) tablet (Vitamin D3) clonazepam 1 mg tablet 1.5 mg PO BEDTIME PRN Anxiety 05/30/20 11/30/21 losartan 50 mg tablet 50 mg PO DAILY 05/30/20 09/04/22 mirtazapine 7.5 mg tablet 7.5 mg PO BEDTIME 05/30/20 09/04/22 multivitamin 1 tab PO DAILY 05/30/20 11/30/21 prazosin 5 mg capsule 10 mg PO BEDTIME 05/30/20 09/04/22 sennosides 8.6 mg capsule (senna) 8.6 mg PO BEDTIME 02/22/21 11/30/21 atorvastatin 40 mg tablet 1 tab PO BEDTIME 11/30/21 09/04/22 clonazepam 0.5 mg tablet 1 tab PO DAILY PRN Anxiety 11/30/21 09/04/22 lamotrigine 100 mg tablet 100 mg PO BEDTIME 11/30/21 11/30/21 (Lamictal) linaclotide 145 mcg capsule 1 cap PO DAILY 11/30/21 11/30/21 (Linzess) trazodone 150 mg tablet 2 tab PO BEDTIME 11/30/21 09/04/22 blood sugar diagnostic (FreeStyle #10 ea 05/15/22 Lite Strips) cetirizine 10 mg tablet 10 mg PO BID disorder of thyroid 05/15/22 gland insulin aspart U-100 100 unit/mL 12 unit subcut 05/15/22 09/04/22 (3 mL) subcutaneous pen (Novolog FlexPen U-100 Insulin aspart) insulin degludec 200 unit/mL (3 85 unit subcut 05/15/22 mL) subcutaneous pen (Tresiba FlexTouch U-200 insulin) lancets 33 gauge (TRUEplus Lancets) #100 ea 05/15/22 tramadol 50 mg tablet 50 mg PO BID PRN 05/15/22 09/04/22 blood sugar diagnostic (FreeStyle 09/04/22 09/04/22 Lite Strips) lamotrigine 200 mg tablet 200 mg PO DAILY 09/04/22 09/04/22 losartan 25 mg tablet 25 mg PO DAILY 09/04/22 09/04/22 pen needle, diabetic 32 gauge x #50 ea 09/04/22 09/04/22 (UltiCare Pen Needle) risperidone 3 mg tablet 0 mg PO 09/04/22 09/04/22 cholecalciferol (vitamin D3) 50 50 mcg PO DAILY 01/01/23 mcg (2,000 unit) capsule (Vitamin D3) Previous Rx's Medication Instructions Recorded omeprazole 20 mg capsule,delayed 20 mg PO DAILY #30 caps 02/22/21 release docusate sodium 100 mg capsule 200 mg (2 x 100 mg) PO BEDTIME #60 08/20/21 caps risperidone 1 mg tablet 1 mg PO BID #60 tabs 12/07/21 metformin 1,000 mg tablet 1,000 mg PO BIDWMEAL #60 tabs 11/13/22 dulaglutide 1.5 mg/0.5 mL 1.5 mg (0.5 mL) subcut QWEEK #2 mL 04/25/23 subcutaneous pen injector (Trulicity) loperamide 2 mg capsule 2 mg PO Q6H PRN loose stool #20 05/06/23 caps ondansetron 4 mg disintegrating 4 mg PO Q6H PRN nausea and 05/06/23 tablet vomiting #14 tabs Allergies Allergy/AdvReac Type Severity Reaction Status Date / Time Penicillins [PENICILLINS] Allergy Intermediate ITCH/RASH Verified 05/15/22 09:36 sulfamethoxazole Allergy Intermediate RASH Verified 05/15/22 09:36 [From Bactrim] sumatriptan Allergy Intermediate rash Verified 05/15/22 09:36 trimethoprim [From Bactrim] Allergy Intermediate RASH Verified 05/15/22 09:36 pepperoni Allergy Intermediate rash Uncoded 05/15/22 09:36 Review of Systems Review of Systems: Constitutional : No Weight loss, No Fever, No Chills, + Fatigue, + Malaise ENT/Mouth : No sore throat, No Rhinorrhea Eyes: No Eye Pain, No Swelling, No Redness Cardiovascular : No Chest Pain, No SOB, No Dyspnea on Exertion, No Orthopnea, No Edema, No Palpitations Respiratory : No Cough, No Sputum, No Wheezing Gastrointestinal : + Nausea, + Vomiting, + Diarrhea, No Constipation, + abdominal Pain, No Hematochezia, No Melena Genitourinary : No Dysuria, No Urinary Frequency, No Hematuria, Musculoskeletal : No joint pain, No Myalgias, No Joint Swelling Skin : No Skin Lesions, No rash Neuro : No Weakness, No Numbness, No Dizziness, No Headache Psych : No Anxiety/Panic, No Depression All other systems reviewed and are negative Yes all other systems are reviewed and are negative [facility] Past Medical History Attestation statement: The following information was validated with the patient. Source: old records reviewed and nursing notes reviewed Medical History (Updated 05/06/23 @ 18:07 by JENI Garzon) Abnormal colonoscopy Colon adenomas Nausea & vomiting Irritable bowel syndrome with constipation History of hyperopia Gastroenteritis Memory impairment Hyperlipidemia Hypertension Myalgia and myositis Urinary incontinence Diabetes mellitus Depression Anxiety Insomnia History of lipoma Surgical History History of back surgery History of esophagogastroduodenoscopy (EGD) Hx of cataract extraction Hx of colonoscopy Hx of foot surgery Hx of right breast biopsy Hx of total hysterectomy Family History Family History Mother Diabetes Father Prostate cancer Social History Social History (Reviewed 01/11/23 @ 10:25 by EFRAÍN Harris Household Members: None Household Members Other:: none Housing: Apartment Do you presently have visiting nurse or other home services: Yes ([employer] and [employer]) Alcohol intake: never Patient Tobacco Use Status: Never used Tobacco Smoked in Last 30 Days: No Use of substances other than those prescribed or required for medical reasons: No Advance Directives: No service: No Current occupational status: disabled Sexual orientation: Straight/Heterosexual Physical Exam ED Vital Signs: Vital Signs - 24 hr 05/06/23 13:38 05/06/23 15:18 05/06/23 16:17 Temperature 97.8 F 98.0 F 98.5 F Pulse Rate 84 79 85 Respiratory Rate 14 15 16 Blood Pressure 168/82 H 155/84 H 162/80 H Pulse Oximetry 97 96 94 Oxygen Delivery Method Room Air Room Air Room Air 05/06/23 16:17 05/06/23 16:44 05/06/23 17:18 Temperature 98.3 F Pulse Rate 86 83 83 Respiratory Rate 18 15 18 Blood Pressure 162/80 H 146/82 H 141/80 H Pulse Oximetry 95 96 96 Oxygen Delivery Method Room Air Room Air Room Air 05/06/23 18:28 Temperature Pulse Rate 83 Respiratory Rate 18 Blood Pressure 156/84 H Pulse Oximetry 97 Oxygen Delivery Method Room Air BMI result Body Mass Index 29.5 vss Appearance: Alert.? Oriented X3.? No acute distress.? Head: Normocephalic, atraumatic, no step-offs or deformities Eyes: Pupils equal, round and reactive to light.? ENT: Pharynx normal.? Neck: Normal inspection.? Neck supple.? CVS: Normal heart rate and rhythm.? Pulses normal.? Respiratory: No respiratory distress.? Breath sounds normal.? Abdomen: Distended & tense w/ diffuse abd discomfort sevre throughout, normal bowel sounds Skin: Skin warm and dry.? Normal skin color.? Normal skin turgor.? Extremities: No lower extremity edema.? No calf ttp. 5/5 strength to bilateral upper and lower extremities Neuro: Oriented X 3.? No motor deficit.? No sensory deficit. CN 2-12 intact Course Reevaluation(s) Reevaluation #1: I spoke to patient's provider who states that patient had an abnormal lactate of 36.2 and patient has been having nausea, vomiting, diarrhea for the past 3 days. Patient had negative COVID and flu test. Remainder of labs looked okay according to patient's provider who I spoke with on the phone. Time: 13:45 Reevaluation #2: Patient's CBC with a white count of 14.0, no left shift. Chemistry with critically low magnesium 1.42 mg of IV Mag ordered at this time. Patient's lactic acid also noted to be 4.9, patient does have a tender abdomen to palpation at this time is sepsis protocol has been called overhead ( infection suspected), 30 cc/kilos bolus of normal saline has been ordered as well as ceftriaxone patient does have an allergy to penicillin however low suspicion due to cross reactivity that she will react to ceftriaxone. Will administer and monitor. Time: 14:19 Reevaluation #3: Unremarkable CT abd and pelvis. Upon further review of patient's chart patient is noted to be on metformin, in now I have a higher suspicion for metformin lactic acidosis, less likely from infection. Patient does appear to have a chronic leukocytosis without a left shift. Will obtain a UA and a chest x-ray to rule out infection but at this time infection less likely. Time: 17:35 Additional Reevaluation(s): Patient reports she is feeling better at this time. Abdomen no longer tender to palpation on exam. UA and cxr pending 1914 Discuss this case with my attending, there is no source for infection, lactic acid elevation likely secondary to metformin. Recommends getting more fluids and rechecking 1 more lactic acid. To see if it normalizes. I also discussed this case with hospitalist who does not feel as though there is an indication for hospital admission, lactic acidosis likely secondary to metformin. Patient's urine clean without infection. Chest x-ray appears to be unremarkable however final read is not back. Sign out to nail pending repeat lactic Medications Administered Discontinued Medications Generic Name Dose Route Start Last Admin Trade Name Freq PRN Reason Stop Dose Admin Hydromorphone HCl 0.5 mg 05/06/23 15:26 05/06/23 15:37 Hydromorphone Hcl 0.5 Mg/0.5 Ml Syringe IVPUSH 05/06/23 15:27 0.5 mg ONCE ONE Administration Protocol Sodium Chloride 2,193 mls @ 2,193 mls/hr 05/06/23 14:16 05/06/23 16:16 Ns 30 ml/kg infuse over 1 hr (2193 ml) 05/06/23 15:15 Infused IV Infusion .Q1H STA Ceftriaxone Sodium 1 gm/ 50 mls @ 100 mls/hr 05/06/23 14:16 05/06/23 15:33 Sodium Chloride IV 05/06/23 14:45 Infused ONCE ONE Infusion Magnesium Sulfate 2 gm in 50 mls @ 25 mls/hr 05/06/23 14:16 05/06/23 17:53 Magnesium Sulfate/H2o IV 05/06/23 16:15 Infused ONCE ONE Infusion Iohexol 100 ml 05/06/23 14:53 05/06/23 14:53 Iohexol 350 Mg/Ml 100 Ml Infus..Btl IV 05/06/23 14:54 85 ml ONCE ONE Administration Medical Decision Making Medical Decision Making [facility] Narrative: [id number] 67-year-old female presents with nausea, vomiting, diarrhea and abdominal pain for the past 3-4 days, coming in after home provider saw her and told her she had abnormal labs. Patient also reported to nursing positive urinary symptoms however denied this to me. Physical exam Distended & tense w/ diffuse abd discomfort sevre throughout, normal bowel sounds Concerns for viral illness versus acute abdomen. Will rule out metabolic derangements. Unlikely obstruction. Will rule out UTI versus cystitis. Unlikely pyelonephritis obstructing uropathy Plan at this time labs, imaging, urine, blood cultures, lactic acid. Differential Diagnosis Differential Diagnoses: The differential diagnosis associated with the presentation includes Concerns for viral illness versus acute abdomen. Will rule out metabolic derangements. Unlikely obstruction. Will rule out UTI versus cystitis. Unlikely pyelonephritis obstructing uropathy Admission/Observation Consideration of admission/observation: Escalation of care including admission/observation considered likely Lab Data 05/06/23 13:52 05/06/23 18:18 Labs: Lab Results 05/06/23 05/06/23 05/06/23 Range/Units 13:52 14:32 16:17 WBC 14.0 H (4.8-10.8) X10*3/uL RBC 4.57 (4.20-5.50) X10*6/uL Hgb 12.4 (12.0-16.0) g/dl Hct 38.9 (37.0-47.0) % MCV 85.1 (80.0-98.0) fL MCH 27.1 (27.0-33.0) pg MCHC 31.9 (31.0-35.0) g/dl RDW 12.8 (11.0-16.0) % Plt Count 308 (160-400) X10*3/uL MPV 9.8 (9.4-12.3) fL Immature Gran % (Auto) 0.5 H (0.0-0.4) % Neut % (Auto) 61.2 (45-73) % Lymph % (Auto) 27.9 (20-40) % [place] % (Auto) 6.7 (2-11) % Eos % (Auto) 3.4 (0-4) % Baso % (Auto) 0.3 (0-2) % Lymph # (Auto) 3.9 (1.2-4.9) X10*3/uL [place] # (Auto) 0.9 (0.1-1.2) X10*3/uL Eos # (Auto) 0.5 H (0.0-0.4) X10*3/uL Baso # (Auto) 0.0 (0.0-0.2) X10*3/uL Abs Immat Gran (auto) 0.07 H (0.00-0.03) X10*3/uL Absolute Neuts (auto) 8.5 H (2.0-8.3) x10*3/uL Absolute Nucleated RBC 0.000 (0.0-0.012) X10*3/uL Nucleated RBC % (auto) 0.0 (0.0-0.2) /100WBC Sodium 140 (135-145) mmol/L Potassium 4.2 (3.3-5.1) mmol/L Chloride 106 (96-108) mmol/L Carbon Dioxide 23 (22-29) mmol/L Anion Gap 15 (12-20) BUN 14 (9-16) mg/dL Creatinine 0.75 (0.5-1.4) mg/dL Estim Creat Clear Calc 69.0 Estimated GFR > 60 POC Glucose 105 (60-115) mg/dL Random Glucose 123 H (60-115) mg/dL Lactic Acid 4.9 H* (0.5-2.0) mmol/L Lactic Acid F/U @ 2Hr 3.5 H* (0.5-2.0) mmol/L Calcium 9.8 D (8.4-10.2) mg/dL Magnesium 1.4 L* (1.6-2.6) mg/dL Total Bilirubin 0.2 (0.0-1.0) mg/dL AST 24 (5-31) U/L ALT 28 (0-31) U/L Alkaline Phosphatase 69 (39-117) U/L Total Protein 6.6 (6.5-8.0) g/dL Albumin 4.0 (3.5-5.0) g/dL Lipase 22 (8-78) U/L Urine Color Urine Appearance Urine pH (5.0-9.0) Ur Specific [place] (1.005-1.025) Urine Protein (Neg-Trace) mg/dL Urine Glucose (UA) (Negative) mg/dL Urine Ketones (Negative) mg/dL Urine Blood (Negative) Urine Nitrite (Negative) Ur Leukocyte Esterase (Negative) Urine RBC (0-2) /HPF Urine WBC (0-5) /HPF Ur Squamous Epith Cells (0-2) /HPF Urine Bacteria (None Seen) Hyaline Casts (0-2) /LPF 05/06/23 05/06/23 05/06/23 Range/Units 18:18 18:26 18:40 WBC (4.8-10.8) X10*3/uL RBC (4.20-5.50) X10*6/uL Hgb (12.0-16.0) g/dl Hct (37.0-47.0) % MCV (80.0-98.0) fL MCH (27.0-33.0) pg MCHC (31.0-35.0) g/dl RDW (11.0-16.0) % Plt Count (160-400) X10*3/uL MPV (9.4-12.3) fL Immature Gran % (Auto) (0.0-0.4) % Neut % (Auto) (45-73) % Lymph % (Auto) (20-40) % [place] % (Auto) (2-11) % Eos % (Auto) (0-4) % Baso % (Auto) (0-2) % Lymph # (Auto) (1.2-4.9) X10*3/uL [place] # (Auto) (0.1-1.2) X10*3/uL Eos # (Auto) (0.0-0.4) X10*3/uL Baso # (Auto) (0.0-0.2) X10*3/uL Abs Immat Gran (auto) (0.00-0.03) X10*3/uL Absolute Neuts (auto) (2.0-8.3) x10*3/uL Absolute Nucleated RBC (0.0-0.012) X10*3/uL Nucleated RBC % (auto) (0.0-0.2) /100WBC Sodium 143 (135-145) mmol/L Potassium 4.0 (3.3-5.1) mmol/L Chloride 110 H (96-108) mmol/L Carbon Dioxide 25 (22-29) mmol/L Anion Gap 12 (12-20) BUN 11 (9-16) mg/dL Creatinine 0.68 (0.5-1.4) mg/dL Estim Creat Clear Calc 76.2 Estimated GFR > 60 POC Glucose 103 (60-115) mg/dL Random Glucose 82 (60-115) mg/dL Lactic Acid (0.5-2.0) mmol/L Lactic Acid F/U @ 2Hr (0.5-2.0) mmol/L Calcium 9.1 D (8.4-10.2) mg/dL Magnesium 1.9 (1.6-2.6) mg/dL Total Bilirubin (0.0-1.0) mg/dL AST (5-31) U/L ALT (0-31) U/L Alkaline Phosphatase (39-117) U/L Total Protein (6.5-8.0) g/dL Albumin (3.5-5.0) g/dL Lipase (8-78) U/L Urine Color Yellow Urine Appearance Clear Urine pH 5.5 (5.0-9.0) Ur Specific [place] >= 1.030 H (1.005-1.025) Urine Protein Trace (Neg-Trace) mg/dL Urine Glucose (UA) Negative (Negative) mg/dL Urine Ketones Negative (Negative) mg/dL Urine Blood Trace H (Negative) Urine Nitrite Negative (Negative) Ur Leukocyte Esterase Trace H (Negative) Urine RBC 0-2 (0-2) /HPF Urine WBC 0-5 (0-5) /HPF Ur Squamous Epith Cells 0-2 (0-2) /HPF Urine Bacteria None Seen (None Seen) Hyaline Casts 0-2 (0-2) /LPF Critical Care Time Critical Care Time Critical Care Time: Yes Total Critical Care Time: 35 Attestation: I attest to this time spent taking care of the patient, obtaining history, physical, reviewing labs, imaging, speaking to my attending, speaking to specialist. Discharge Plan Discharge Clinical Impression: Viral illness, Nausea & vomiting, Acidosis, lactic, Diarrhea Patient Disposition: Home, Self-Care Additional Instructions: Take your medications as prescribed. If you were prescribed antibiotics today, it is important that you take your medication to their entirety, do not skip any doses, do not finish them early. Follow-up with your primary care provider this week. Return to the emergency department with new or worsening symptoms. Such as fevers, chills, chest pain, shortness of breath, nausea, vomiting, dizziness, headache, vision changes, lethargy In case of emergency call 911 Zofran has been sent here pharmacy for nausea and vomiting. Loperamide has been sent for diarrhea. Your lactic acid was noted to be elevated I suspect this is secondary to you taking metformin not from infection. Prescriptions: New loperamide 2 mg capsule 2 mg PO Q6H PRN (Reason: loose stool) Qty: 20 0RF ondansetron 4 mg tablet,disintegrating 4 mg PO Q6H PRN (Reason: nausea and vomiting) Qty: 14 0RF No Action docusate sodium 100 mg capsule 200 mg PO BEDTIME Qty: 60 5RF metformin 1,000 mg tablet 1,000 mg PO BIDWMEAL Qty: 60 6RF Trulicity 1.5 mg/0.5 mL pen injector 1.5 mg subcut QWEEK Qty: 2 5RF multivitamin Tablet 1 tab PO DAILY losartan 50 mg Tablet 50 mg PO DAILY clonazepam 1 mg Tablet 1.5 mg PO BEDTIME PRN (Reason: Anxiety) prazosin 5 mg Capsule 10 mg PO BEDTIME mirtazapine 7.5 mg Tablet 7.5 mg PO BEDTIME cholecalciferol (vitamin D3) [Vitamin D3] 50 mcg (2,000 unit) Tablet 50 mcg PO DAILY atorvastatin 40 mg tablet 1 tab PO BEDTIME lamotrigine [Lamictal] 100 mg Tablet 100 mg PO BEDTIME trazodone 150 mg tablet 2 tab PO BEDTIME clonazepam 0.5 mg tablet 1 tab PO DAILY PRN (Reason: Anxiety) Linzess 145 mcg capsule 1 cap PO DAILY risperidone 1 mg Tablet 1 mg PO BID Qty: 60 0RF senna 8.6 mg capsule 8.6 mg PO BEDTIME omeprazole 20 mg capsule,delayed release(DR/EC) 20 mg PO DAILY Qty: 30 5RF (DME) FreeStyle Lite Strips Strip See Rx Instructions .ROUTE QID Qty: 10 Rx Instructions: As directed Tresiba FlexTouch U-200 200 unit/mL (3 mL) insulin pen 85 unit subcut insulin aspart U-100 [Novolog FlexPen U-100 Insulin] 100 unit/mL (3 mL) insulin pen 12 unit subcut tramadol 50 mg tablet 50 mg PO BID PRN cetirizine 10 mg tablet 10 mg PO BID (DME) lancets [TRUEplus Lancets] 33 gauge misc See Rx Instructions .ROUTE .MEDSUPPLY Qty: 100 Rx Instructions: As directed (DME) FreeStyle Lite Strips Strip See Rx Instructions .Route Rx Instructions: As directed 3 times a day (DME) pen needle, diabetic [UltiCare Pen Needle] 32 gauge x 5/32 needle See Rx Instructions .ROUTE DAILY Qty: 50 Rx Instructions: As directed twice a day cholecalciferol (vitamin D3) [Vitamin D3] 50 mcg (2,000 unit) capsule 50 mcg PO DAILY risperidone 3 mg tablet 0 mg PO lamotrigine 200 mg tablet 200 mg PO DAILY losartan 25 mg tablet 25 mg PO DAILY Referrals: Physician,Unknown J [Primary Care Provider] - 2 days Stand Alone Forms: Work/School Release
[2023-05-06 14:00] LABS: MANUAL DIFF FLAG NO
[2023-05-06 14:02] LABS: Basophils Percent Auto 0.3 % (0-2); Eosinophils Absolute Auto 0.5 X10*3/uL (0.0-0.4); Eosinophils Percent Auto 3.4 % (0-4); Hematocrit 38.9 % (37.0-47.0); Hemoglobin 12.4 g/dl (12.0-16.0); Imm Gran Abs Auto 0.07 X10*3/uL (0.00-0.03); Imm Gran Pct Auto 0.5 % (0.0-0.4); Lymphocytes Absolute Auto 3.9 X10*3/uL (1.2-4.9); Lymphocytes Percent Auto 27.9 % (20-40); Mean Corpuscular HGB Conc 31.9 g/dl (31.0-35.0); Mean Corpuscular Hemoglobin 27.1 pg (27.0-33.0); Mean Corpuscular Volume 85.1 fL (80.0-98.0); Mean Platelet Volume 9.8 fL (9.4-12.3); Monocytes Absolute Auto 0.9 X10*3/uL (0.1-1.2); Monocytes Percent Auto 6.7 % (2-11); Neutrophils Absolute Auto 8.5 x10*3/uL (2.0-8.3); Neutrophils Percent Auto 61.2 % (45-73); Platelet Count 308 X10*3/uL (160-400); Red Blood Count 4.57 X10*6/uL (4.20-5.50); Red Cell Distribution Width 12.8 % (11.0-16.0)
[2023-05-06 14:16] LABS: Lactic Acid 4.9 mmol/L (0.5-2.0)
[2023-05-06 14:17] LABS: Alanine Aminotransferase 28 U/L (0-31); Alkaline Phosphatase 69 U/L (39-117); Anion Gap 15 (12-20); Aspartate Amino Transferase 24 U/L (5-31); Bilirubin Total 0.2 mg/dL (0.0-1.0); Blood Urea Nitrogen 14 mg/dL (9-16); Calcium 9.8 mg/dL (8.4-10.2); Carbon Dioxide 23 mmol/L (22-29); Chloride 106 mmol/L (96-108); Estimated Glomerular Filt Rate > 60; Glucose Random 123 mg/dL (60-115); Lipase 22 U/L (8-78); Magnesium 1.4 mg/dL (1.6-2.6); Potassium 4.2 mmol/L (3.3-5.1); Sodium 140 mmol/L (135-145); Total Protein 6.6 g/dL (6.5-8.0)
[2023-05-06 14:36] LABS: Glucose, Whole Blood 105 mg/dL (60-115)
[2023-05-06] MEDS: iohexoL 350 MG/ML 100 ML INFUS..BTL IV (14:53)
[2023-05-06] MEDS: cefTRIAXone sodium 1 GM in 0.9 % Sodium Chloride 50 ML IV (14:57)
[2023-05-06] MEDS: HYDROmorphone HCl 0.5 MG/0.5 ML SYRINGE IVPUSH (15:37)
[2023-05-06] MEDS: Magnesium Sulfate/H2O 2 GM/50 ML PIGGYBACK IV (15:42)
[2023-05-06 15:58] LABS: Reflex Lactate? Lactic Acid Added
[2023-05-06 16:34] LABS: ~Lactic Acid-LAB USE ONLY 3.5 mmol/L (0.5-2.0)
[2023-05-06 18:21] LABS: Reflex Lactate? 2 Y
[2023-05-06 18:37] LABS: Anion Gap 12 (12-20); Blood Urea Nitrogen 11 mg/dL (9-16); Calcium 9.1 mg/dL (8.4-10.2); Carbon Dioxide 25 mmol/L (22-29); Chloride 110 mmol/L (96-108); Creatinine Clr Calc Pharmacy 76.2; Estimated Glomerular Filt Rate > 60; Glucose Random 82 mg/dL (60-115); Sodium 143 mmol/L (135-145)
[2023-05-06 18:47] LABS: Glucose, Whole Blood 103 mg/dL (60-115)
[2023-05-06 18:48] LABS: Appearance Urine Clear; Color Urine Yellow; Glucose Urine UA Negative (Negative); Leukocyte Esterase Urine Trace (Negative); Nitrite Urine Negative (Negative); PH 5.5 (5.0-9.0); Specific Gravity - Urine >= 1.030 (1.005-1.025); UMIC TRIGGER UACC YES; Urine Blood Trace (Negative); Urine Ketones Negative (Negative); Urine Protein Trace mg/dL (Neg-Trace)
[2023-05-06 18:53] LABS: Bacteria Urine None Seen (None Seen); Hyaline Casts Urine 0-2 /LPF (0-2); RBC Urine 0-2 /HPF (0-2); Squamous Epithelial Cell Urine 0-2 /HPF (0-2); WBC Urine 0-5 /HPF (0-5)
--- NOTE | 2023-05-06 19:04 | PC.NURSE ---
assumed care of patient at 1900 - pt tolerated po challenge. PA aware.
[2023-05-06 19:06] LABS: Magnesium 1.9 mg/dL (1.6-2.6)
[2023-05-06 19:17] LABS: ~Lactic Acid-LAB USE ONLY 2.7 mmol/L (0.5-2.0)
--- NOTE | 2023-05-06 19:23 | MHC.EDTECH ---
This tech assumed care of patient at 1900,vitals and rounds completed and patient is resting comfortably at this time. Call barnes within reach
[2023-05-06] MEDS: 0.9 % Sodium Chloride 1,000 ML 999 ML IV (19:42)
[2023-05-06 21:18] LABS: Lactic Acid 1.8 mmol/L (0.5-2.0)
--- NOTE | 2023-05-06 21:52 | MHC.EDTECH ---
Hourly rounds and vitals completed,patient's blood pressure is elevated at 184/89 RN Corrina made aware. Patient is resting comfortably at this time and call barnes within reach
== END 2023-05-06 22:30 | disposition home or self-care (01) ==
PROVIDERS: Physician Assistant; Emergency Provider Student in an Organized Health Care Education/Training Program
DX: B34.9 Viral infection, unspecified (principal); R11.2 Nausea with vomiting, unspecified; E87.20 Acidosis, unspecified; R19.7 Diarrhea, unspecified; R10.9 Unspecified abdominal pain; R53.1 Weakness; E11.9 Type 2 diabetes mellitus without complications; I10 Essential (primary) hypertension; Z79.899 Other long term (current) drug therapy; Z79.84 Long term (current) use of oral hypoglycemic drugs; Z79.85 Long-term (current) use of injectable non-insulin antidiabetic drugs
CPT/HCPCS: 36415; 71045; 74177; 80048; 80053; 81001; 82947; 83605; 83690; 83735; 85025; 87040; 96361; 96365; 96366; 96375; 99284; 99285; J0696; J1170; J3475; Q9967

== ENCOUNTER 2023-09-22 09:47 | Outpatient (REF) | payer OTHER, SELFPAY ==
[2023-09-22 12:00] LABS: Alanine Aminotransferase 34 U/L (0-31); Albumin Level 4.4 g/dL (3.5-5.0); Alkaline Phosphatase 82 U/L (39-117); Anion Gap 19 (12-20); Aspartate Amino Transferase 36 U/L (5-31); Bilirubin Total 0.3 mg/dL (0.0-1.0); Blood Urea Nitrogen 10 mg/dL (9-16); Calcium 10.2 mg/dL (8.4-10.2); Carbon Dioxide 22 mmol/L (22-29); Chloride 103 mmol/L (96-108); Cholesterol 130 mg/dL (<200); Estimated Glomerular Filt Rate > 60; Glucose Random 122 mg/dL (60-115); HDL Cholesterol 45 mg/dL (>40); LDL Cholesterol Calculated 46 mg/dL (<100); Potassium 4.2 mmol/L (3.3-5.1); Sodium 140 mmol/L (135-145); Total Protein 7.6 g/dL (6.5-8.0); Triglycerides 197 mg/dL (<150)
[2023-09-22 12:19] LABS: Creatinine Urine 228.61 mg/dL
[2023-09-22 12:41] LABS: Microalbum/Creatinine Ratio Ur 595.7 ug/mg cr (<30)
== END 2023-09-22 09:48 | disposition home or self-care (01) ==
LOC: HO.HHCL 09:47
PROVIDERS: Visit Provider General Practice
DX: E11.69 Type 2 diabetes mellitus with other specified complication (principal)
CPT/HCPCS: 36415; 80053; 80061; 82043; 82570

== ENCOUNTER 2023-10-06 09:54 | Outpatient (REF) | payer OTHER, SELFPAY ==
--- NOTE | ~2023-10-06 | MM_ITS ---
EXAMINATION: MM SCREENING DIGITAL BREAST TOMOSYNTHESIS, BILATERAL CLINICAL INFORMATION: Screening. Asymptomatic. COMPARISON: Mammography: This study is compared with prior exams dating back to 2017. TECHNIQUE: Digital breast tomosynthesis is performed in both the craniocaudal and mediolateral oblique views along with computer-aided detection (CAD). Synthesized 2D images are generated from the tomosynthesis. FINDINGS: The breasts are heterogeneously dense, which may obscure small masses (ACR BI-RADS breast composition Category c). In the lateral aspect of the left breast, there are multiple groups of calcification which warrant additional mammographic imaging with magnification. There are no other significant findings in the left breast. There is a known sebaceous cyst in the 9:00 region of the left breast. In the right breast, there are no significant masses, abnormal calcifications, or other abnormalities. There are 2 tissue markers in the superior aspect of the right breast from prior benign percutaneous biopsies. There are benign calcifications in the right breast. MM/MM tomosynthesis screening BI IMPRESSION: Calcifications in the left breast warrant additional mammographic imaging with magnification. Benign findings right breast. ASSESSMENT: BI-RADS BI-RADS 0 - Incomplete: Needs additional Imaging. RECOMMENDATION: Additional views of the left breast. Radiology department staff will contact the patient for additional imaging. Additional Imaging required This examination should not preclude the clinical evaluation of a suspicious palpable abnormality. This patient's information was entered into a reminder system with a target due date for their next mammogram.
== END 2023-10-06 09:55 | disposition home or self-care (01) ==
LOC: HO.MAMMO 09:54
PROVIDERS: PCP General Practice; Visit Provider General Practice
DX: Z12.31 Encounter for screening mammogram for malignant neoplasm of breast (principal)
CPT/HCPCS: 77063; 77067

== ENCOUNTER → 2023-10-06 10:45 | Outpatient (BNV) | payer OTHER, SELFPAY | PROVIDERS: PCP General Practice; Visit Provider Radiology Diagnostic Radiology | DX: Z12.31 Encounter for screening mammogram for malignant neoplasm of breast (principal) | CPT/HCPCS: 77063; 77067 ==

== ENCOUNTER 2023-10-30 09:21 | Outpatient (AMB) | payer OTHER, SELFPAY ==
--- NOTE | 2023-10-30 09:38 | A.OFFVIS_ITS ---
Intake Vital Signs 10/30/23 09:39 Height 5 ft 6 in Weight 157 lb 3.033 oz BMI 25.4 BP 140/82 H Blood Pressure Location Lt brachial Position Sitting Pulse 104 H Pulse Source Pulse Oximeter Intake Visit Reasons: DM-confirmed Intake Note: Patient presents today to follow up on D2MT. Last Diabetic Eye exam:11/2022 Last Podiatry Visit: 06/2023 Random Glucose: 248 mg/dl HgA1c: 9.8% Microsoft Windows Engineer Required: Yes Microsoft Windows Engineer Language: Paint Brush Maker Name: Vanessa medical staff Information Interpreted: non-clinical & clinical Accompanied by: Self / Same As Patient Allergies Penicillins [PENICILLINS] Allergy (Intermediate, Verified 10/30/23 09:43) ITCH/RASH sulfamethoxazole [From Bactrim] Allergy (Intermediate, Verified 10/30/23 09:43) RASH sumatriptan Allergy (Intermediate, Verified 10/30/23 09:43) rash trimethoprim [From Bactrim] Allergy (Intermediate, Verified 10/30/23 09:43) RASH pepperoni Allergy (Intermediate, Uncoded 10/30/23 09:43) rash Medication List - Last Reconciled 10/30/23 by Alan Rueda MD atorvastatin 1 tab PO BEDTIME blood sugar diagnostic (FreeStyle Lite Strips) As directed blood sugar diagnostic (FreeStyle Lite Strips) As directed 3 times a day cetirizine 10 mg PO BID cholecalciferol (vitamin D3) (Vitamin D3) 50 mcg PO DAILY cholecalciferol (vitamin D3) (Vitamin D3) 50 mcg PO DAILY clonazepam 1 tab PO DAILY PRN dulaglutide (Trulicity) 1.5 mg (0.5 mL) subcut QWEEK insulin aspart U-100 (Novolog FlexPen U-100 Insulin aspart) 12 units subcut insulin degludec (Tresiba FlexTouch U-200 insulin) 85 units subcut lancets (TRUEplus Lancets) As directed loperamide 2 mg PO Q6H PRN losartan 25 mg PO DAILY metformin 1,000 mg PO BID mirtazapine 7.5 mg PO BEDTIME multivitamin 1 tab PO DAILY omeprazole 20 mg PO DAILY pen needle, diabetic (UltiCare Pen Needle) As directed twice a day risperidone 1 mg PO BID risperidone 0 mg PO sennosides (senna) 8.6 mg PO BEDTIME trazodone 2 tabs PO BEDTIME HPI HPI Comments History of Present Illness Details 68 YO F who is seen in consultation for T2DM at the request of PCP. Initially diagnosed with T2DM in >10 yrs . Was initially started on treatment with metformin. Current regimen metformin 1000mg BID Trulicity 1.5 mg Qwkly Tresiba 80 units Novolog 8 units before meals Unfortunately, patient did not bring glucometer or log book to follow-up visit Denies hypoglycemia Family history of T2DM in mother had Type 2 DM. Has eyes checked yearly, last eye exam has appt 11/2023 has retinopathy. Has neuropathy, last foot exam [], does not sees podiatry but in past . Denies nephropathy, on KACI/ARB. . Has HLD, on statin. Denies CAD. Not Had diabetes education. Saw nutitritionist at [facility] Medical History (Updated 05/07/23 @ 00:03 by Fabio Dwyer) Abnormal colonoscopy Colon adenomas Nausea & vomiting Irritable bowel syndrome with constipation History of hyperopia Gastroenteritis Memory impairment Hyperlipidemia Hypertension Myalgia and myositis Urinary incontinence Diabetes mellitus Depression Anxiety Insomnia History of lipoma Surgical History Hx of cataract extraction Hx of right breast biopsy Hx of colonoscopy History of esophagogastroduodenoscopy (EGD) Hx of foot surgery History of back surgery Hx of total hysterectomy Family History Mother Diabetes Father Prostate cancer Social History Household Members: None Household Members Other:: none Housing: Apartment Do you presently have visiting nurse or other home services: Yes ([employer] and [employer]) Alcohol intake: never Patient Tobacco Use Status: Never used Tobacco service: No Current occupational status: disabled Sexual orientation: Straight/Heterosexual Physical Exam Vital Signs: Last Vital Signs Pulse 104 H 10/30/23 09:39 BP 140/82 H 10/30/23 09:39 BMI result Body Mass Index 25.4 Absence of Cushingoid features. Absence of acromegalic features. Neck exam reveals nl size thyroid about 15 gms. No thyroid nodules palpable. No carotid bruits present. Lungs CTA. Heart S1 S2, Reg R/R. No M/R/ G. Skin exam reveals absence of vitiligo or acanthosis nigricans. Abdominal exam reveals Soft NT/ND with NA BS. No organomegaly present. Neck Other: . Extrem Other: Visual exam of foot performed. No ulcerations or open lesions. No onchomycosis, no callouses.Pulses 2 + distally Sensation intact to monofilament exam. Vibratory sensation sensed is decreased t with 128 Hz tuning fork Results AMB Hemoglobin A1c AMB Hemoglobin A1c 9.8 % Last Edit by TY Castillo on 10/30/23 09:57 Results Reviewed Results Reviewed: Laboratory Last Values Glucose (Clinic) 248 mg/dL (60-115) H 10/30/23 09:48 Assessment & Plan Assessment & Plan (1) Diabetes mellitus: Code(s): E11.9 - Type 2 diabetes mellitus without complications Plan: This is a 68-year-old female with a history of type 2 diabetes being treated with metformin, Trulicity and basal-bolus with poor deteriorated glycemic control but several episodes of hypoglycemia with known microvascular complications namely microalbuminuria. Plan is to have the patient hookup the [employer] so we can obtain more blood sugars and modify the insulin regimen . There is no data today to make changes to the regimen. Patient will follow up with the community nutrition educator Orders: Orders AMB Hemoglobin A1c Today E11.9 - Type 2 diabetes mellitus without complications, Z13.9 - Encounter for screening, unspecified Coding Level of Care Code Est Pt Level 4 (56808) Diagnoses Diabetes mellitus E11.9
[2023-10-30 09:39] VITALS: BP 140/82; PULSE 104; BMI 25.4
[2023-10-30 09:53] LABS: Glucose, Whole Blood 248 mg/dL (60-115)
== END 2023-10-30 10:05 | disposition home or self-care (01) ==
PROVIDERS: PCP General Practice; Visit Provider Internal Medicine Endocrinology, Diabetes & Metabolism
DX: Z13.9 Encounter for screening, unspecified (principal); E11.9 Type 2 diabetes mellitus without complications
CPT/HCPCS: 99214

== ENCOUNTER → 2023-10-30 09:21 | Outpatient (BNVA) | payer OTHER, SELFPAY | PROVIDERS: PCP General Practice; Visit Provider Internal Medicine Endocrinology, Diabetes & Metabolism | DX: E11.9 Type 2 diabetes mellitus without complications (principal); Z79.85 Long-term (current) use of injectable non-insulin antidiabetic drugs; Z79.84 Long term (current) use of oral hypoglycemic drugs | CPT/HCPCS: 82947; 83036; 99212 ==

== ENCOUNTER 2023-11-05 09:17 | Outpatient (AMB) | payer OTHER, SELFPAY ==
--- NOTE | 2023-11-05 09:28 | A.OFFVIS_ITS ---
Intake Vital Signs 11/05/23 09:35 Height 5 ft 6 in Weight 154 lb BMI 24.9 BP 138/73 Blood Pressure Location Lt brachial Position Sitting Pulse 102 H Intake Visit Reasons: Constipation Intake Note: Patient follow up fro Constipation. Patient cc: Nauseas, abdominal pain/bloating, heartburn with burning sensation, constipation and some swallowing problems. Dovetail Machine Operator Required: Yes Dovetail Machine Operator Name: C interpeter Accompanied by: Self / Same As Patient Allergies Penicillins [PENICILLINS] Allergy (Intermediate, Verified 11/05/23 09:27) ITCH/RASH sulfamethoxazole [From Bactrim] Allergy (Intermediate, Verified 11/05/23 09:27) RASH sumatriptan Allergy (Intermediate, Verified 11/05/23 09:27) rash trimethoprim [From Bactrim] Allergy (Intermediate, Verified 11/05/23 09:27) RASH pepperoni Allergy (Intermediate, Uncoded 10/30/23 09:43) rash Medication List - Last Reconciled 11/05/23 by Virgie Garduno PA-C atorvastatin 1 tab PO BEDTIME blood sugar diagnostic (FreeStyle Lite Strips) As directed blood sugar diagnostic (FreeStyle Lite Strips) As directed 3 times a day cetirizine 10 mg PO BID cholecalciferol (vitamin D3) (Vitamin D3) 50 mcg PO DAILY cholecalciferol (vitamin D3) (Vitamin D3) 50 mcg PO DAILY clonazepam 1 tab PO DAILY PRN dulaglutide (Trulicity) 1.5 mg (0.5 mL) subcut QWEEK insulin aspart U-100 (Novolog FlexPen U-100 Insulin aspart) 12 units subcut insulin degludec (Tresiba FlexTouch U-200 insulin) 85 units subcut lancets (TRUEplus Lancets) As directed losartan 25 mg PO DAILY metformin 1,000 mg PO BID mirtazapine 7.5 mg PO BEDTIME multivitamin 1 tab PO DAILY omeprazole 20 mg PO DAILY pen needle, diabetic (UltiCare Pen Needle) As directed twice a day risperidone 1 mg PO BID risperidone 0 mg PO sennosides (senna) 8.6 mg PO BEDTIME trazodone 2 tabs PO BEDTIME HPI HPI Comments History of Present Illness Details A 68 y/o DM female- personal history of colon polyps presents chronic constipation taking senna and a powder- Last colonoscopy 2017--was to return for repeat in 6 months had never followed up. Was seen back in 2020 again rescheduled for colonoscopy she had not shown Reviewed medications- BM Q 2-3 days Appetite is poor- she reports about 20 lb wt loss-gets depressed no suicidal homicidal ideation Reviewed diet nothing specific Diabetes not well controlled No vomiting fever or chills. No hematemesis or hematochezia PFSH Medical History (Updated 11/12/23 @ 09:48 by Virgie Garduno PA-C) Abnormal colonoscopy Colon adenomas Nausea & vomiting Irritable bowel syndrome with constipation History of hyperopia Gastroenteritis Memory impairment Hyperlipidemia Hypertension Myalgia and myositis Urinary incontinence Diabetes mellitus Depression Anxiety Insomnia History of lipoma Surgical History Hx of cataract extraction Hx of right breast biopsy Hx of colonoscopy History of esophagogastroduodenoscopy (EGD) Hx of foot surgery History of back surgery Hx of total hysterectomy Family History Mother Diabetes Father Prostate cancer Social History Household Members: None Household Members Other:: none Housing: Apartment Do you presently have visiting nurse or other home services: Yes ([employer] and [employer]) Alcohol intake: never Patient Tobacco Use Status: Never used Tobacco service: No Current occupational status: disabled Sexual orientation: Straight/Heterosexual Review of Systems Const All systems reviewed & are unremarkable except as noted in HPI and below Denies chills and Denies fever(s) Card Denies chest pain and Denies dyspnea Resp Denies dyspnea GI Denies abdominal pain, Reports constipation, Reports heartburn, Reports nausea, Denies vomiting and Denies hematemesis Physical Exam Vital Signs: Last Vital Signs Pulse 102 H 11/05/23 09:35 BP 138/73 11/05/23 09:35 BMI result Body Mass Index 24.9 Const General: cooperative, comfortable and no acute distress Orientation/consciousness: patient oriented x3 Limitations: language barrier Eyes Sclerae: sclerae normal Resp Effort & Inspection: normal respiratory effort and able to speak in complete sentences Auscultation: clear to auscultation bilaterally, no rales, no rhonchi and no wheezes Cardio Rate: regular rate Rhythm: regular rhythm Heart sounds: S1 normal heart sound present and S2 normal heart sound present GI Inspection: Yes distended and Yes obesity Palpation (GI): Soft to palpation, Tenderness to palpation present (GI) (mild diffuse-) and no guarding Auscultation: normal bowel sounds Neuro General: patient oriented x3 Extrem General: Yes full ROM Psych Affect: Labile affect present Attitude: cooperative Thought process: Normal thought process present Thought content: Normal thought content present Results Reviewed Results Reviewed: 02/2018- Findings: Terminal Ileum ? Not examined Cecum ? A 4 mm sessile polyp removed by cold biopsies. A 10 mm sessile polyp removed by hot snare. Ascending Colon ? Normal Transverse Colon - A 6-7 mm sessile polyp removed by cold biopsy Descending Colon ? Normal Sigmoid Colon ? Moderate diverticulosis Rectum ? Normal Anorectum - Normal Colon preparation: Fair after copious flushing and suctioning and poor in the cecum and proximal AC. Semi solids stool and vegetable matter scattered throughout the colon which could not be suctioned. 70% of the colonic mucosa was visualized and polyps could be missed Impression and Post Procedure Diagnosis: Colonoscopy Findings: Three polyps removed Moderate diverticulosis seen in the sigmoid colon Plan: Await pathology results Continue Omeprazole 20 mg twice daily for GERD and Senna + colace for constipation. Patient has an appointment in the GI Clinic on 03/23/18 with JENI Tuossaint. Repeat Colonoscopy in 6 months due to sub-optimal prep. Above findings discussed with patient in the recovery area with son howie. 04/2023 [facility] #: [id number] CT/CT abdomen pelvis w IV con IMPRESSION: * No acute imaging abnormalities in the abdomen or pelvis. No specific source of abdominal pain is identified. * No dilated bowel loops. No evidence of an obstructive or inflammatory process along the gastrointestinal tract. * No evidence of renal stones or hydronephrosis. Assessment & Plan Assessment & Plan (1) Abdominal pain: Comment: 68-year-old, noncompliant chronic GI complaints- Again reviewed previous labs and imaging reinforced importance of follow through with history of colon polyps inadequate prep. Seen ED 11/[address] no acute findings for her symptoms (adrenal) Code(s): R10.9 - Unspecified abdominal pain Plan: Continue to monitor Schedule EGD colonoscopy (2) Acid reflux: Comment: ppi- avoid culprits Code(s): K21.9 - Gastro-esophageal reflux disease without esophagitis Plan: EGD (3) Chronic constipation: Comment: bowel regimen need colonoscopy- encouraged consistent bowel regimen Code(s): K59.09 - Other constipation Plan: Consistent bowel Maintain high-fiber diet (4) Diabetes mellitus: Comment: Not well controlled Code(s): E11.9 - Type 2 diabetes mellitus without complications Plan: Review all meds-Trulicity, insulin, metformin (5) Poor historian: Code(s): Z78.9 - Other specified health status Plan: Accurate updated list of medications available Plan EGD/ colon- PEG Please review medications requested patient to have list avail Trulicity-typically discontinue dose 7 days prior to procedure Half dose insulin evening before procedure as well omit metformin, No diabetes medications morning of procedure U/S- Labs update Orders: Orders US abdomen complete 11/05/23 E11.9 - Type 2 diabetes mellitus without complications, K21.9 - Gastro-esophageal reflux disease without esophagitis, K59.09 - Other constipation, R10.9 - Unspecified abdominal pain Comprehensive Met. Panel 11/05/23 E11.9 - Type 2 diabetes mellitus without complications, K21.9 - Gastro-esophageal reflux disease without esophagitis, K59.09 - Other constipation, R10.9 - Unspecified abdominal pain Thyroid Stimulating Hormone 11/05/23 R19.8 - Other specified symptoms and signs involving the digestive system and abdomen Complete Blood Count Auto Diff 11/05/23 K21.9 - Gastro-esophageal reflux disease without esophagitis, K59.09 - Other constipation, R10.9 - Unspecified abdominal pain EGD/[place] Combo - GI Use Only 11/05/23 E11.9 - Type 2 diabetes mellitus without complications, K21.9 - Gastro-esophageal reflux disease without esophagitis, K59.09 - Other constipation, R10.9 - Unspecified abdominal pain Medications: New bisacodyl (Dulcolax (bisacodyl)) 10 mg FL DAILY PRN 20 ea 0RF constipation peg 3350-electrolytes 240-22.72-6.72 -5.84 gram until fecal effluent is clear 240 mL PO Q10M PRN 4,000 mL 0RF laxative effect Patient Instructions: 68-year-old female diabetic, personal history colon polyps, not compliant with recommendations Scheduled procedures not follow through Reinforced importance Discussed procedures as well as rare risks, need for escorted due to anesthesia as well as changes in medications. Trulicity omit dose 7 days prior to procedure, metformin day before procedure, after his insulin evening before procedure no diabetes medications morning of procedure. There were no major barriers to understanding identified EGD/ colon- PEG U/S- Labs Encouraged to call with questions or concerns Again reinforced importance of follow through Coding Level of Care Code Est Pt Level 4 (47577) Diagnoses Abdominal pain R10.9 Acid reflux K21.9 Chronic constipation K59.09 Diabetes mellitus E11.9 Poor historian Z78.9 Time Spent (min) 35
[2023-11-05 09:35] VITALS: BP 138/73; PULSE 102; BMI 24.9
== END 2023-11-05 10:02 | disposition home or self-care (01) ==
PROVIDERS: PCP General Practice; Visit Provider Physician Assistant
DX: R10.9 Unspecified abdominal pain (principal); K21.9 Gastro-esophageal reflux disease without esophagitis; K59.09 Other constipation; E11.9 Type 2 diabetes mellitus without complications; Z78.9 Other specified health status
CPT/HCPCS: 99214

== ENCOUNTER → 2023-11-05 09:17 | Outpatient (BNVA) | payer OTHER, SELFPAY | PROVIDERS: PCP General Practice; Visit Provider Physician Assistant | DX: K59.09 Other constipation (principal); K21.9 Gastro-esophageal reflux disease without esophagitis; R10.9 Unspecified abdominal pain; Z78.9 Other specified health status; Z79.4 Long term (current) use of insulin; Z79.899 Other long term (current) drug therapy | CPT/HCPCS: 99212 ==

== ENCOUNTER 2023-11-24 09:13 | Outpatient (REF) | payer OTHER, SELFPAY ==
--- NOTE | ~2023-11-24 | US_ITS ---
EXAMINATION: US ABDOMEN COMPLETE CLINICAL INFORMATION: Abdominal pain and bloating. COMPARISON: CT abdomen and pelvis 05/06/2023 and 01/15/2023. Ultrasound abdomen 05/29/2021. TECHNIQUE: Real-time imaging of the abdominal viscera. Limited visualization due to bowel gas and body habitus. FINDINGS: PANCREAS: Poorly visualized. ABDOMINAL AORTA: Poorly visualized. INFERIOR VENA CAVA: Visualized portions are normal. LIVER: Hepatomegaly with right hepatic lobe measuring 17.8 cm. Left hepatic lobe measures 14.1 cm. Increased hepatic parenchymal heterogeneity and echogenicity could be associated with hepatocellular disease/hepatic steatosis and severely limits visualization. Correlation with liver function tests and clinical exam recommended to determine further management. GALLBLADDER: No gallstones. No gallbladder wall thickening. COMMON BILE DUCT: Normal in caliber measuring 0.3 cm in diameter. RIGHT KIDNEY: A 3 mm right renal mid pole calculus. No hydronephrosis. Limited visualization. The kidney measures 12.3 cm in maximum dimension. LEFT KIDNEY: No hydronephrosis. No renal calculi. Limited visualization. The kidney measures 12.2 cm in maximum dimension. SPLEEN: Normal. The spleen measures 11.6 cm in maximum dimension. FREE FLUID: None. US/US abdomen complete IMPRESSION: 1. Hepatomegaly.Increased hepatic parenchymal heterogeneity and echogenicity could be associated with hepatocellular disease/hepatic steatosis and severely limits visualization. Correlation with liver function tests and clinical exam recommended to determine further management. 2. Right renal 3 mm mid pole calculus. No hydronephrosis.
[2023-11-24 09:55] LABS: MANUAL DIFF FLAG NO
[2023-11-24 10:31] LABS: Basophils Absolute Auto 0.1 X10*3/uL (0.0-0.2); Basophils Percent Auto 0.5 % (0-2); Eosinophils Absolute Auto 0.2 X10*3/uL (0.0-0.4); Eosinophils Percent Auto 1.9 % (0-4); Hematocrit 41.4 % (37.0-47.0); Hemoglobin 13.3 g/dl (12.0-16.0); Imm Gran Abs Auto 0.05 X10*3/uL (0.00-0.03); Imm Gran Pct Auto 0.4 % (0.0-0.4); Lymphocytes Absolute Auto 3.4 X10*3/uL (1.2-4.9); Lymphocytes Percent Auto 27.7 % (20-40); Mean Corpuscular HGB Conc 32.1 g/dl (31.0-35.0); Mean Corpuscular Hemoglobin 27.5 pg (27.0-33.0); Mean Corpuscular Volume 85.7 fL (80.0-98.0); Mean Platelet Volume 10.3 fL (9.4-12.3); Monocytes Percent Auto 7.9 % (2-11); Neutrophils Absolute Auto 7.7 x10*3/uL (2.0-8.3); Neutrophils Percent Auto 61.6 % (45-73); Platelet Count 317 X10*3/uL (160-400); Red Blood Count 4.83 X10*6/uL (4.20-5.50); Red Cell Distribution Width 12.6 % (11.0-16.0); White Blood Count 12.4 X10*3/uL (4.8-10.8)
[2023-11-24 11:04] LABS: Alanine Aminotransferase 27 U/L (0-31); Albumin Level 4.2 g/dL (3.5-5.0); Alkaline Phosphatase 75 U/L (39-117); Anion Gap 19 (12-20); Aspartate Amino Transferase 28 U/L (5-31); Bilirubin Total 0.2 mg/dL (0.0-1.0); Blood Urea Nitrogen 9 mg/dL (9-16); Calcium 10.5 mg/dL (8.4-10.2); Carbon Dioxide 25 mmol/L (22-29); Chloride 102 mmol/L (96-108); Estimated Glomerular Filt Rate > 60; Glucose Random 247 mg/dL (60-115); Potassium 4.1 mmol/L (3.3-5.1); Sodium 142 mmol/L (135-145); Total Protein 7.3 g/dL (6.5-8.0)
[2023-11-24 11:23] LABS: Thyroid Stimulating Hormone 1.65 uIU/mL (0.32-4.0)
== END 2023-11-24 09:14 | disposition home or self-care (01) ==
LOC: HO.US 09:13
PROVIDERS: PCP General Practice; Visit Provider Physician Assistant
DX: R10.9 Unspecified abdominal pain (principal); K21.9 Gastro-esophageal reflux disease without esophagitis; K59.09 Other constipation; E11.9 Type 2 diabetes mellitus without complications; R19.8 Other specified symptoms and signs involving the digestive system and abdomen
CPT/HCPCS: 36415; 76700; 80053; 84443; 85025

== ENCOUNTER 2023-12-03 10:13 | Outpatient (REF) | payer OTHER, SELFPAY ==
--- NOTE | ~2023-12-03 | MM_ITS ---
EXAMINATION: MM DIAGNOSTIC DIGITAL MAMMOGRAPHY, LEFT CLINICAL INFORMATION: Follow-up for multiple groups of calcifications left breast, predominantly outer quadrant. History of benign right stereotactic biopsy. COMPARISON: Mammography: 10/06/2023, 06/24/2019, 03/07/2017. TECHNIQUE: Digital mammography is performed in the following views: 2-D spot magnification left ML views x2, and left CC view x1. FINDINGS: The breasts are heterogeneously dense, which may obscure small masses (ACR BI-RADS breast composition Category c). Diagnostic views demonstrate several new groups of calcifications within the left breast which have developed since 2019. Majority have a coarse, benign dystrophic appearance, consistent with fibroadenomatoid change. A solitary looser group of calcifications in the mid depth left breast, 3:00 axis, demonstrates moderate pleomorphism with some differing shapes, however the overall appearance of the calcifications is somewhat coarse, and likely these will develop into a classically benign dystrophic calcifications identical to the other nonsuspicious groups in the left breast. There are no casting or branching forms, and there is no suspicious distribution. There are extensive vascular calcifications. No additional suspicious abnormalities. MM/MM added views LT IMPRESSION: -No findings suspicious for malignancy left breast. -Loosely grouped calcifications in the far lateral 3:00 axis are probably benign, and six-month interval follow-up diagnostic left mammogram to include standard magnification views is recommended to assess for expected interval changes of this group into a more classically benign appearance. (Stereotactic biopsy would likely be difficult given patient's habitus and history of back fusion). -Several additional groups of coarse, dystrophic calcifications which are likely fibroadenomatoid in nature. These are benign. -Findings were communicated to the patient by the technologist. ASSESSMENT: BI-RADS BI-RADS 3 - Probably benign finding(s) - 6 month follow-up suggested RECOMMENDATION: 6 Month F/U This patient's information was entered into a reminder system with a target due date for their next mammogram.
== END 2023-12-03 10:14 | disposition home or self-care (01) ==
LOC: HO.MAMMO 10:13
PROVIDERS: PCP General Practice; Visit Provider General Practice
DX: R92.1 Mammographic calcification found on diagnostic imaging of breast (principal)
CPT/HCPCS: 77065

== ENCOUNTER → 2023-12-03 11:00 | Outpatient (BNV) | payer OTHER, SELFPAY | PROVIDERS: PCP General Practice; Visit Provider Radiology Diagnostic Radiology | DX: R92.1 Mammographic calcification found on diagnostic imaging of breast (principal) | CPT/HCPCS: 77065 ==

== ENCOUNTER 2024-02-25 09:00 | Day surgery (SDC) | payer OTHER, SELFPAY ==
[2024-02-25 05:33] VITALS: BMI 25.0
[2024-02-25] MEDS: Lactated Ringers 1,000 ML 50 ML IVCONT (09:03)
--- NOTE | 2024-02-25 09:11 | HO.ANESPROP2 ---
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 (Acute) MDD (major depressive disorder), recurrent episode, moderate (Acute) Depression (Acute) Diabetes mellitus (Acute) Dysuria (Acute) Nausea & vomiting (Acute) Abdominal pain (Acute) Encounter for colonoscopy due to history of adenomatous colonic polyps (Acute) Acid reflux (Acute) Chronic constipation (Acute) Past Medical History Medical History (Updated 11/12/23 @ 09:48 by Virgie Garduno PA-C) Abnormal colonoscopy Colon adenomas Nausea & vomiting Irritable bowel syndrome with constipation History of hyperopia Gastroenteritis Memory impairment Hyperlipidemia Hypertension Myalgia and myositis Urinary incontinence Diabetes mellitus Depression Anxiety Insomnia History of lipoma Family History Family History Mother Diabetes Father Prostate cancer Family history of problems with anesthesia: No Surgical History Surgical History Hx of cataract extraction Hx of right breast biopsy Hx of colonoscopy History of esophagogastroduodenoscopy (EGD) Hx of foot surgery History of back surgery Hx of total hysterectomy History of Problems with Anesthesia: No Social History Social History Household Members: None Household Members Other:: none Housing: Apartment Do you presently have visiting nurse or other home services: Yes ([employer] and [employer]) Alcohol intake: never Patient Tobacco Use Status: Never used Tobacco Advance Directives: No Advance Directives Information Provided: Yes service: No Current occupational status: disabled Sexual orientation: Straight/Heterosexual Meds Allergies Allergy/AdvReac Type Severity Reaction Status Date / Time Penicillins [PENICILLINS] Allergy Intermediate ITCH/RASH Verified 11/05/23 09:27 sulfamethoxazole Allergy Intermediate RASH Verified 11/05/23 09:27 [From Bactrim] sumatriptan Allergy Intermediate rash Verified 11/05/23 09:27 trimethoprim [From Bactrim] Allergy Intermediate RASH Verified 11/05/23 09:27 pepperoni Allergy Intermediate rash Uncoded 10/30/23 09:43 Active Medications: Current Medications Lactated Ringer's (Lr) 1,000 mls @ 50 mls/hr IVCONT .Q20H YUAN Home Medications ?Medication ?Instructions ?Recorded ?Confirmed ?Last Taken ?Type cholecalciferol (vitamin D3) 50 50 mcg PO DAILY 05/30/20 11/05/23 11/30/21 09:00 History mcg (2,000 unit) tablet (Vitamin D3) mirtazapine 7.5 mg tablet 7.5 mg PO BEDTIME 05/30/20 11/05/23 11/29/21 20:00 History multivitamin 1 tab PO DAILY 05/30/20 11/05/23 11/30/21 08:00 History atorvastatin 40 mg tablet 1 tab PO BEDTIME 11/30/21 11/05/23 11/29/21 20:00 History clonazepam 0.5 mg tablet 1 tab PO DAILY PRN Anxiety 11/30/21 11/05/23 Unknown History trazodone 150 mg tablet 2 tab PO BEDTIME 11/30/21 11/05/23 Unknown History blood sugar diagnostic (FreeStyle #10 ea 05/15/22 11/05/23 Unknown History Lite Strips) cetirizine 10 mg tablet 10 mg PO BID disorder of thyroid 05/15/22 11/05/23 Unknown History gland insulin aspart U-100 100 unit/mL 12 unit subcut 05/15/22 11/05/23 Unknown History (3 mL) subcutaneous pen (Novolog FlexPen U-100 Insulin aspart) insulin degludec 200 unit/mL (3 85 unit subcut 05/15/22 11/05/23 Unknown History mL) subcutaneous pen (Tresiba FlexTouch U-200 insulin) lancets 33 gauge (TRUEplus Lancets) #100 ea 05/15/22 11/05/23 Unknown History blood sugar diagnostic (FreeStyle 09/04/22 11/05/23 Unknown History Lite Strips) losartan 25 mg tablet 25 mg PO DAILY 09/04/22 11/05/23 Unknown History pen needle, diabetic 32 gauge x #50 ea 09/04/22 11/05/23 Unknown History (UltiCare Pen Needle) risperidone 3 mg tablet 0 mg PO 09/04/22 11/05/23 Unknown History cholecalciferol (vitamin D3) 50 50 mcg PO DAILY 01/01/23 11/05/23 Unknown History mcg (2,000 unit) capsule (Vitamin D3) Exam Height,Weight and Vital Signs: Height 5 ft 6 in Weight 70.307 kg Airway Mallampati Class: II TM Dist: >3cm Neck ROM: Full Heart: rrr Lungs: cta Assessment and Plan Assessment Anesthesia Assessment: Anesthesia Plan Discussed and Chart Reviewed Final Anesthetic Review Family History of Problems with Anesthesia: No History of Problems with Anesthesia: No NPO: Yes ASA Class: III Final Preanesthetic Review: No Changes in Pt Med Stat, Meds/Allgs Chart Reviewed and Consent Obtained/Reviewed Patient Risk: Intermediate Procedure Risk: Intermediate Anesthetic Plan Anesthetic Plan: MAC: Disposition: Standard PACU
[2024-02-25 09:13] VITALS: BP 158/86; PULSE 85; RESP 18; TEMP 36.6; O2SAT 98
[2024-02-25 09:15] LABS: Glucose, Whole Blood 310 mg/dL (60-115)
--- NOTE | 2024-02-25 09:26 | PC.NURSE ---
pt poc 310 she took her trebisa and novolg yesterday and metformin 2 days ag truclity taken 8 days ago okay to proceed per anaesthesia give pt fluid pt aware careplan
--- NOTE | 2024-02-25 09:53 | PC.NURSE ---
poc after 600ml bolus is 242 pt resting comfortably
[2024-02-25 09:55] LABS: Glucose, Whole Blood 242 mg/dL (60-115)
--- NOTE | 2024-02-25 09:59 | MHC.SHP ---
Pre-Procedural Eval Section A - 24 Hr Update-Section A only Date of Service: 02/25/24 Section B - Complete if H&P > 30 days Chief Complaint: Gastro-esophageal reflux disease without esophagit Details of Present Illness: hx of colon polyps Relevant Family History (Specify if Yes): No Relevant Social History: None Present Medications: see Short Stay Collaborative assessment Medical History: Significant History (Abnormal colonoscopy Colon adenomas Nausea & vomiting Irritable bowel syndrome with constipation History of hyperopia Gastroenteritis Memory impairment Hyperlipidemia Hypertension Myalgia and myositis Urinary incontinence Diabetes mellitus Depression Anxiety Insomnia History of lipoma) History of Previous Operations: Relevant previous surgery/procedure and date(s) ( Hx of cataract extraction Hx of right breast biopsy Hx of colonoscopy History of esophagogastroduodenoscopy (EGD) Hx of foot surgery History of back surgery Hx of total hysterectomy) Allergies: Allergies Allergy/AdvReac Type Severity Reaction Status Date / Time Penicillins [PENICILLINS] Allergy Intermediate ITCH/RASH Verified 11/05/23 09:27 sulfamethoxazole Allergy Intermediate RASH Verified 11/05/23 09:27 [From Bactrim] sumatriptan Allergy Intermediate rash Verified 11/05/23 09:27 trimethoprim [From Bactrim] Allergy Intermediate RASH Verified 11/05/23 09:27 pepperoni Allergy Intermediate rash Uncoded 10/30/23 09:43 Review of Systems Sugical H&P ROS: Negative: Constitution, Cardiovascular, Respiratory, Neurological, Psychiatric, Hem-Onc, Allergic/Immunologic, Gastrointestinal, Genitourinary, Musculoskeletal, Integumentary, Endocrine and Eyes/Ears/Nose/Throat Exam Surgical H&P Exam: Normal: HEENT, Normal: Heart, Normal: Lungs, Normal: Extremities, Normal: Abdomen, Normal: Skin and Normal: Neurological Plan Diagnosis/Plan: Unchanged I have reviewed the history and physical and performed a pertinent physical examination on my patient. No changes have occurred unless specified. Time Spent With Patient Time: Total time managing care of this patient today ____ minutes.
--- NOTE | 2024-02-25 10:03 | PC.NURSE ---
ls clear bolus given for high poc
--- NOTE | 2024-02-25 10:48 | HO.OPN-COLON ---
Colonoscopy Operative Note Operative Note Date of Service: 02/25/24 Narrative: Operative Information Procedure Description: EGD, Colonoscopy Indication: GERD and colon screening Anesthesia: MAC FLEXIBLE TRANSORAL UPPER GASTROINTESTINAL ENDOSCOPY AND COLONOSCOPY PROCEDURE NOTE UPPER ENDOSCOPY Consent: Indications for the procedure and potential complications of bleeding, perforation, reaction to medications and missed diagnosis were discussed with the patient and informed consent was obtained. Instrument: Olympus GIF H 190 J mid size upper endoscope Monitoring: Vital signs and clinical assessment, continuous EKG monitoring, Pulse oximetry, Carbon Dioxide monitoring and blood pressure monitoring were done throughout the procedure. Procedure: The patient was placed in the left lateral decubitis position and pre-procedure medications were administered and a bite block was placed. The endoscope was inserted into the mouth and advanced under direct vision to the third part of duodenum. A careful inspection was made as the upper endoscope was withdrawn including a retroflexed examination of the proximal stomach; Findings and interventions are described below. Findings: Larynx:normal Esophagus: GE junction at 38 cm, diaphragm hiatus at 38 cm, b xtaken from GEJ and distal esophagus, normal appearing mucosa Stomach: Patchy erythema and scarring. Biopsies were obtained. Grade 2 flap valve on retroflexed examination of the cardia. Duodenum: Normal bulb and descending duodenum, Intervention: Biopsies as noted above, COLONOSCOPY Instrument: Olympus variable stiffness pediatric scope 190L Colonoscopy Monitoring: Vital signs and clinical assessment, continuous EKG monitoring, Pulse oximetry, Carbon Dioxide monitoring and blood pressure monitoring were done throughout the procedure. Colon withdrawal time was 12 minutes. Procedure: The patient was placed in the left lateral decubitis position and pre-procedure medications were administered. After a digital rectal examination of the ano-rectum, the video colonoscope was inserted into the rectum and advanced through the colon to the cecum/TI. The colonoscope was slowly withdrawn in a retrograde panoramic fashion and the colon mucosa was carefully examined including a retroflexed view of the rectum. Findings and interventions are described below. Procedure Difficulty:moderate Findings: Terminal Ileum-not intubated due to poor prep Cecum:normal Ascending Colon: normal Transverse Colon -normal Descending Colon: x 4 sessile polyps 4-8 mm, two removed with cold snare and two with cold forceps Sigmoid Colon: normal Rectum: Retroflexion with small internal hemorrhoids, grade I Anorectum - normal Colon preparation: [place] Bowel Preparation Scale Right colon; 1 Transverse colon: 1-2 Left colon; 2 (0 = Unprepared colon segment with mucosa not seen due to solid stool that cannot be cleared. 1 = Portion of mucosa of the colon segment seen, but other areas of the colon segment not well seen due to staining, residual stool and/or opaque liquid. 2 = Minor amount of residual staining, small fragments of stool and/or opaque liquid, but mucosa of colon segment seen well. 3 = Entire mucosa of colon segment seen well with no residual staining, small fragments of stool or opaque liquid) Impression and Post Procedure Diagnosis: Endoscopy Findings: atrophic gastritis Colonoscopy Findings: colon polyps internal hemorrhoids Plan: Await Pathology results Repeat Colonoscopy in 6-12 months due to poor prep or earlier if clinically indicated High fiber diet leaflet avoid straining at stool, epsom salts and sitz bath, anusol supps or cream Above findings were reviewed with the patient and relevant handouts were provided if indicated.
[2024-02-25 10:53] VITALS: BP 148/90; PULSE 83; RESP 16; TEMP 36.4; O2SAT 95
[2024-02-25 10:58] VITALS: BP 158/91; PULSE 82; RESP 18; O2SAT 98
[2024-02-25 11:03] VITALS: BP 156/88; PULSE 85; RESP 18; O2SAT 96
[2024-02-25 11:08] VITALS: BP 155/81; PULSE 73; RESP 18; TEMP 36.9; O2SAT 98
--- NOTE | 2024-02-25 11:28 | PC.NURSE ---
per dr. curry - no POC required before patient discharge.
== END 2024-02-25 12:46 | disposition home or self-care (01) ==
PROVIDERS: PCP General Practice; Visit Provider Internal Medicine Gastroenterology
PROC: (CPT 45385; principal; 2024-02-25 10:10)
DX: Z12.11 Encounter for screening for malignant neoplasm of colon (principal); Z86.010 Personal history of colon polyps; D12.4 Benign neoplasm of descending colon; K58.1 Irritable bowel syndrome with constipation; K21.9 Gastro-esophageal reflux disease without esophagitis; K29.40 Chronic atrophic gastritis without bleeding; K64.0 First degree hemorrhoids; K44.9 Diaphragmatic hernia without obstruction or gangrene; R41.3 Other amnesia; I10 Essential (primary) hypertension; E78.5 Hyperlipidemia, unspecified; E11.9 Type 2 diabetes mellitus without complications; Z79.4 Long term (current) use of insulin; Z79.84 Long term (current) use of oral hypoglycemic drugs; Z79.85 Long-term (current) use of injectable non-insulin antidiabetic drugs; Z79.899 Other long term (current) drug therapy; Z88.0 Allergy status to penicillin; Z88.2 Allergy status to sulfonamides
CPT/HCPCS: 45385; 45380; 43239; 82947; 88305; 88313; 88342; J2704

== ENCOUNTER → 2024-02-25 09:00 | Outpatient (BNV) | payer OTHER, SELFPAY | PROVIDERS: PCP General Practice; Visit Provider Internal Medicine Gastroenterology | DX: Z12.11 Encounter for screening for malignant neoplasm of colon (principal); D12.4 Benign neoplasm of descending colon; K64.0 First degree hemorrhoids; Z91.199 Patient's noncompliance with other medical treatment and regimen due to unspecified reason; K21.9 Gastro-esophageal reflux disease without esophagitis; K29.70 Gastritis, unspecified, without bleeding | CPT/HCPCS: 43239; 45380; 45385 ==

== ENCOUNTER 2024-03-03 09:31 | Outpatient (AMB) | payer OTHER, SELFPAY ==
--- NOTE | 2024-03-03 09:32 | A.OFFVIS_ITS ---
Vital Signs 03/03/24 09:41 03/03/24 10:18 Height 5 ft 6 in Weight 156 lb 8.451 oz BMI 25.3 BP 142/80 H 132/78 Blood Pressure Location Rt brachial Rt brachial Position Sitting Pulse 85 Pulse Source Pulse Oximeter Intake Visit Reasons: T2DM/CONFIRMED Intake Note: Patient presents today to established treatment for DM TYPE 2: Most recent Diabetic Eye Exam: DUE Most recent Podiatry Exam: Does not see a Procurement Accountant Most recent HbA1c: 9.8% 03/03/2024 Random Glucose- 147 mg/dL, Today Pattern Maker Required: No Accompanied by: Self / Same As Patient Allergies Penicillins [PENICILLINS] Allergy (Intermediate, Verified 03/03/24 09:34) ITCH/RASH sulfamethoxazole [From Bactrim] Allergy (Intermediate, Verified 03/03/24 09:34) RASH sumatriptan Allergy (Intermediate, Verified 03/03/24 09:34) rash trimethoprim [From Bactrim] Allergy (Intermediate, Verified 03/03/24 09:34) RASH pepperoni Allergy (Intermediate, Uncoded 03/03/24 09:34) rash HPI Comments Details: 68 YO F who is seen in follow up for T2D M. She was last seen by Dr. Rueda 11/15 Initially diagnosed with T2DM in >10 yrs. Was initially started on treatment with metformin. Current regimen metformin 1000mg BID Trulicity 1.5 mg Qwkly Tresiba 80 units Novolog 12 units before meals She has now using a [employer] 2. Avg 198 Last two weeks numbers improving as she has started to follow a more balanced diet and is staying away from sweets. Denies hypoglycemia Family history of type 2 diabetes Has eyes checked yearly, last eye exam has appt 11/2023 has retinopathy. Has neuropathy, , does not see podiatry but has in the past and had foot surgery. Denies nephropathy, on KACI/ARB. . Has HLD, on statin. Denies CAD. She denies cramping in the extremities. Not Had diabetes education. Saw nutitritionist at [facility] Medical History Abnormal colonoscopy Colon adenomas Nausea & vomiting Irritable bowel syndrome with constipation History of hyperopia Gastroenteritis Memory impairment Hyperlipidemia Hypertension Myalgia and myositis Urinary incontinence Diabetes mellitus Depression Anxiety Insomnia History of lipoma Surgical History Hx of cataract extraction Hx of right breast biopsy Hx of colonoscopy History of esophagogastroduodenoscopy (EGD) Hx of foot surgery History of back surgery Hx of total hysterectomy Family History Mother Diabetes Father Prostate cancer Social History Household Members: None Household Members Other:: none Housing: Apartment Do you presently have visiting nurse or other home services: Yes ([employer] and [employer]) Alcohol intake: never Patient Tobacco Use Status: Never used Tobacco service: No Current occupational status: disabled Sexual orientation: Straight/Heterosexual Physical Exam Vital Signs: Last Vital Signs Pulse 85 03/03/24 09:41 BP 142/80 H 03/03/24 09:41 BMI result Body Mass Index 25.3 Neck Neck: Yes normal visual inspection and Yes trachea midline Thyroid: Thyroid normal Resp Effort & Inspection: normal respiratory effort Auscultation: clear to auscultation bilaterally Cardio Rate: regular rate Rhythm: regular rhythm Heart sounds: S1 normal heart sound present and S2 normal heart sound present Extrem Other: Visual exam of foot performed. No ulcerations or open lesions. No onchomycosis, no callouses. Sensation intact to monofilament exam. Vibratory sensation is normal with 128 Hz tuning fork. callous formation ball of foot right Results AMB Hemoglobin A1c AMB Hemoglobin A1c 9.8 % Last Edit by TY Tafoya on 03/03/24 10:00 Results Reviewed Results Reviewed: Laboratory Last Values Glucose (Clinic) 147 mg/dL (60-115) H 03/03/24 09:49 Hgb A1c (Clinic) 9.8 % (4.0-6.0) H 03/03/24 09:59 Laboratory Tests 09/22/23 10/30/23 11/24/23 09:51 09:55 09:55 Potassium 4.1 Creatinine 0.78 Estimated GFR > 60 POC Glucose Hgb A1c (Clinic) 9.8 H Calcium 10.2 D 10.5 H AST 28 ALT 27 Albumin 4.2 Cholesterol 130 LDL Cholesterol, Calc 46 HDL Cholesterol 45 TSH 1.65 02/25/24 02/25/24 09:05 09:52 Potassium Creatinine Estimated GFR POC Glucose 310 H 242 H Hgb A1c (Clinic) Calcium AST ALT Albumin Cholesterol LDL Cholesterol, Calc HDL Cholesterol TSH Assessment & Plan Assessment & Plan (1) Diabetes mellitus: Comment: Not well controlled recent numbers improving Code(s): E11.9 - Type 2 diabetes mellitus without complications Category: Medical Plan: Continue current medication with the exception of increased dose of NovoLog. metformin 1000mg BID Trulicity 1.5 mg Qwkly Tresiba 80 units Novolog 14 units before meals The patient was counseled to achieve a target A1C of 7% (154 avg) the fasting blood sugars should be 90-130 in the morning and less than 180 two hours after meals. Risks of uncontrolled diabetes discussed with the patient. The patient was counseled to always carry a source of sugar and on the rule of 15's: Take 3 glucose tablets and repeat again in 15 minutes if blood sugar is not in normal range. Continue to repeat every 15 minutes until blood sugar is normal. Refer to podiatry for diabetic shoes/callus formation Referred to diabetes insulation sprayer (2) Hypercalcemia: Comment: Continue current medication with the exception of increased dose of NovoLog. metformin 1000mg BID Trulicity 1.5 mg Qwkly Tresiba 80 units Novolog 14 units before meals The patient was counseled to achieve a target A1C of 7% (154 avg) the fasting blood sugars should be 90-130 in the morning and less than 180 two hours after meals. Risks of uncontrolled diabetes discussed with the patient. The patient was counseled to always carry a source of sugar and on the rule of 15's: Take 3 glucose tablets and repeat again in 15 minutes if blood sugar is not in normal range. Continue to repeat every 15 minutes until blood sugar is normal. Refer to podiatry for diabetic shoes/callus formation Referred to diabetes insulation sprayer Code(s): E83.52 - Hypercalcemia Category: Medical Plan: Will check lab profile Plan check labs Orders: Orders AMB Hemoglobin A1c Today E11.9 - Type 2 diabetes mellitus without complications Alkaline Phosphatase Bone 2 Weeks E83.52 - Hypercalcemia Calcium 2 Weeks E83.52 - Hypercalcemia Calcium, Ionized 2 Weeks E83.52 - Hypercalcemia Free T4 (Free Thyroxine) Today E11.9 - Type 2 diabetes mellitus without complications Vitamin D 25-OH (D2 and D3) Today E83.52 - Hypercalcemia Parathyroid Hormone Intact Today E83.52 - Hypercalcemia Albumin Level 2 Weeks E83.52 - Hypercalcemia TSH reflex Free T4 Today E11.9 - Type 2 diabetes mellitus without complications Thyroid Stimulating Hormone Today E11.9 - Type 2 diabetes mellitus without complications Referrals Podiatry Referral E11.9 - Type 2 diabetes mellitus without complications Web Operations Lead Nutrition Referral E11.9 - Type 2 diabetes mellitus without complications Coding Level of Care Code Est Pt Level 5 (34029) Complex EM visit Add On G2211 Diagnoses Diabetes mellitus E11.9 Hypercalcemia E83.52 Time Spent (min) 60 Comment Time spent reviewing labs/previous provider notes, face to face, chart documentation
[2024-03-03 09:41] VITALS: BP 142/80; PULSE 85; BMI 25.3
[2024-03-03 09:53] LABS: Glucose, Whole Blood 147 mg/dL (60-115)
[2024-03-03 10:18] VITALS: BP 132/78
== END 2024-03-03 10:17 | disposition home or self-care (01) ==
PROVIDERS: PCP General Practice; Visit Provider Nurse Practitioner Adult Health
DX: E11.9 Type 2 diabetes mellitus without complications (principal); E83.52 Hypercalcemia
CPT/HCPCS: 99215; G2211

== ENCOUNTER → 2024-03-03 09:31 | Outpatient (BNVA) | payer OTHER, SELFPAY | PROVIDERS: PCP General Practice; Visit Provider Nurse Practitioner Adult Health | DX: E11.9 Type 2 diabetes mellitus without complications (principal); E83.52 Hypercalcemia; Z79.4 Long term (current) use of insulin | CPT/HCPCS: 82947; 83036; 99212 ==

== ENCOUNTER → 2024-03-12 09:42 | Outpatient (BNVA) | payer OTHER, SELFPAY | PROVIDERS: PCP General Practice; Visit Provider Internal Medicine Gastroenterology ==

== ENCOUNTER 2024-03-12 16:04 | Outpatient (REF) | payer OTHER, SELFPAY ==
[2024-03-13 11:46] LABS: H Pylori Breath Test Negative (Negative)
== END 2024-03-12 16:05 | disposition home or self-care (01) ==
LOC: HO.LNP 16:04
PROVIDERS: Visit Provider Physician Assistant
DX: R11.2 Nausea with vomiting, unspecified (principal); R10.9 Unspecified abdominal pain
CPT/HCPCS: 83013

== ENCOUNTER 2024-03-31 10:21 | Outpatient (AMB) | payer OTHER, SELFPAY ==
--- NOTE | 2024-03-31 10:35 | A.OFFVIS_ITS ---
Vital Signs 03/31/24 10:41 Height 5 ft 6 in Weight 152 lb 1.903 oz BMI 24.5 BP 130/80 Blood Pressure Location Rt brachial Position Sitting Pulse 89 Pulse Source Pulse Oximeter Intake Visit Reasons: T2DM/CONFIRMED Intake Note: Patient presents today for a follow-up on Type 2 Diabetes Mellitus: Last Diabetic Eye exam: 01/2023 Last Podiatry Exam: Does not see a Special Education Preschool Teacher Most recent HbA1c: 9.8%, 03/03/2024 Random Glucose- 186 mg/dL, Today Washhouse Hand Required: Yes Washhouse Hand Language: Sexual Assault Counselor Services: Washhouse Hand Present Washhouse Hand Name: TY Tafoya/ALYSSA Patel Accompanied by: Self / Same As Patient Allergies Penicillins [PENICILLINS] Allergy (Intermediate, Verified 03/31/24 10:37) ITCH/RASH sulfamethoxazole [From Bactrim] Allergy (Intermediate, Verified 03/31/24 10:37) RASH sumatriptan Allergy (Intermediate, Verified 03/31/24 10:37) rash trimethoprim [From Bactrim] Allergy (Intermediate, Verified 03/31/24 10:37) RASH pepperoni Allergy (Intermediate, Uncoded 03/31/24 10:37) rash HPI Comments Details: 68 YO F who is seen in follow up for T2D M. She was last seen by Dr. Rueda 11/15 and by myself February 2024. Initially diagnosed with T2DM in >10 yrs. Last A1C was 9.8% on 03/03/24 same as 10/30/23 and up from previous of mid in 2022. Was initially started on treatment with metformin. She believes she is having diarrhea and bloating from the Trulicity. Current regimen metformin 1000mg BID Trulicity 1.5 mg Qwkly Tresiba 80 units Novolog 15 units before meals She has now using a freestyle Khalif 2. She is scanning 3 times a day. Freestyle khalif sensor 2 average glucose: [181 ] Glucose Management indicator [unable to calculate %] 10 % very high (above 250) [ 30] % high (181-250) Sixty % in range (70-180] [ 0] % low (69-55) [00 ] % very low (below 54) [ 25.8] Standard Deviation desired <36 Denies hypoglycemia Family history of type 2 diabetes Has eyes checked yearly, last eye exam has appt 11/2023 has retinopathy. Has neuropathy, , does not see podiatry but has in the past and had foot surgery. She was referred to podiatry at her last office visit but has not yet been contacted. + nephropathy, on losartan . Has HLD, on statin. Denies CAD. She denies cramping in the extremities. Not Had diabetes education. Saw nutitritionist at [facility] in the past. [facility] Medical History (Updated 03/31/24 @ 11:26 by Yuliya Clayton NP) Nephropathy Pre-ulcerative corn or callous Abnormal colonoscopy Colon adenomas Nausea & vomiting Irritable bowel syndrome with constipation History of hyperopia Gastroenteritis Memory impairment Hyperlipidemia Hypertension Myalgia and myositis Urinary incontinence Diabetes mellitus Depression Anxiety Insomnia History of lipoma Surgical History Hx of cataract extraction Hx of right breast biopsy Hx of colonoscopy History of esophagogastroduodenoscopy (EGD) Hx of foot surgery History of back surgery Hx of total hysterectomy Family History Mother Diabetes Father Prostate cancer Social History Household Members: None Household Members Other:: none Housing: Apartment Do you presently have visiting nurse or other home services: Yes (EVENTS INTERN and VNA) Alcohol intake: never Patient Tobacco Use Status: Never used Tobacco service: No Current occupational status: disabled Sexual orientation: Straight/Heterosexual Physical Exam Vital Signs: Last Vital Signs Pulse 89 03/31/24 10:41 BP 130/80 03/31/24 10:41 BMI result Body Mass Index 24.5 Const Other: Absence of Cushingoid features. Absence of acromegalic features. Neck exam reveals nl size thyroid about 15 gms. No thyroid nodules palpable. Heart S1 S2, Reg R/R. No M/R G. Skin exam reveals absence of vitiligo or acanthosis nigricans. Extrem Other: Visual exam of foot performed. No ulcerations or open lesions. No onchomycosis, + callouses. Sensation intact to monofilament exam left foot, diminished right foot. Results Reviewed Results Reviewed: Laboratory Last Values Glucose (Clinic) 186 mg/dL (60-115) H 03/31/24 10:46 Laboratory Tests 01/01/23 01/01/23 05/06/23 09:42 10:44 18:55 Plt Count Potassium Creatinine Estimated GFR POC Glucose Hgb A1c (Clinic) 7.5 H Lactic Acid F/U @ 4Hr 2.7 H* Calcium Total Bilirubin AST ALT Alkaline Phosphatase Albumin Triglycerides Cholesterol LDL Cholesterol, Calc HDL Cholesterol TSH PTH Intact 34 Calcium (PTH Intact) 10.5 H 09/22/23 10/30/23 11/24/23 09:51 09:55 09:55 Plt Count 317 Potassium 4.1 Creatinine 0.78 Estimated GFR > 60 POC Glucose Hgb A1c (Clinic) 9.8 H Lactic Acid F/U @ 4Hr Calcium 10.2 D 10.5 H Total Bilirubin 0.3 AST 28 ALT 27 Alkaline Phosphatase 75 Albumin 4.4 4.2 Triglycerides 197 H Cholesterol 130 LDL Cholesterol, Calc 46 HDL Cholesterol 45 TSH 1.65 PTH Intact Calcium (PTH Intact) 02/25/24 02/25/24 03/03/24 09:05 09:52 09:59 Plt Count Potassium Creatinine Estimated GFR POC Glucose 310 H 242 H Hgb A1c (Clinic) 9.8 H Lactic Acid F/U @ 4Hr Calcium Total Bilirubin AST ALT Alkaline Phosphatase Albumin Triglycerides Cholesterol LDL Cholesterol, Calc HDL Cholesterol TSH PTH Intact Calcium (PTH Intact) Assessment & Plan Assessment & Plan (1) Diabetes mellitus: Comment: Not well controlled recent numbers improving Code(s): E11.9 - Type 2 diabetes mellitus without complications Category: Medical Plan: 68-year-old type 2 diabetic with recent improvement in blood sugar average to 181 on freestyle Khalif 2. We will change patient to a freestyle Khalif 3 with reader she will need instruction on this and to be set up in [place]. She is having a lot of GI symptoms and we will trial stopping Trulicity to see if that might be causing the symptoms and we will switch metformin to an ER preparation. She will continue the same dose of Tresiba and her NovoLog will be changed to a sliding scale. She was given printed instructions in [place] and verbal instr uctions in both [place] and [place]. She was counseled that for numbers increase off Trulicity that she is to contact us. New diabetes regime: metformin 1000mg ER BID Tresiba 80 units Novolog 15-18 units 80-150 15 units 151-200 16 units 201-250 17 units 251-300+ 18 unit will check on status of referral to podiatry rtc with CDE for FS Khalif 3 with reader in ukrainian (changing from 2) 1 month with RUBBER GOODS CUTTER FINISHER She was instructed to call if her numbers increase after stopping Trulicity (2) Nephropathy: Code(s): N28.9 - Disorder of kidney and ureter, unspecified Category: Medical Plan: Nephropathy. Will check with patient to see if she is followed by neph if not will refer. Medications: New metformin ER 1,000 mg PO BID 30 days 60 tabs 5RF E11.9 - Type 2 diabetes mellitus without complications blood-glucose meter,continuous (FreeStyle Khalif 3 [place]) As directed 1 ea 0RF blood-glucose sensor (FreeStyle Khalif 3 Sensor device) As directed 2 ea 11RF Changed From insulin aspart U-100 (Novolog FlexPen U-100 Insulin aspart) 80-150 15units 151-200 16units 201-250 17units 251-300 18units over 300 19 units subcutaneously 3 times a day with meals E11.9 - Type 2 diabetes mellitus without complications To insulin aspart U-100 (Novolog FlexPen U-100 Insulin aspart) 80-150 15units 151-200 16units 201-250 17units 251-300 18units over 300 19 units subcutaneously 3 times a day with meals 30 days 6 mL 11RF E11.9 - Type 2 diabetes mellitus without complications Discontinued dulaglutide (Trulicity) Discontinued Reason: Doctor's Order 1.5 mg (0.5 mL) subcut QWEEK 2 mL 5RF metformin Discontinued Reason: Doctor's Order 1,000 mg PO BID 60 tabs 5RF Coding Level of Care Code Est Pt Level 5 (09967) Complex EM visit Add On G2211 Diagnoses Diabetes mellitus E11.9 Nephropathy N28.9 Time Spent (min) 50 Comment Time spent reviewing labs/previous provider notes, face to face, chart documentation
[2024-03-31 10:41] VITALS: BP 130/80; PULSE 89; BMI 24.5
[2024-03-31 10:51] LABS: Glucose, Whole Blood 186 mg/dL (60-115)
== END 2024-03-31 11:14 | disposition home or self-care (01) ==
PROVIDERS: PCP General Practice; Visit Provider Nurse Practitioner Adult Health
DX: E11.9 Type 2 diabetes mellitus without complications (principal); N28.9 Disorder of kidney and ureter, unspecified
CPT/HCPCS: 99215; G2211

== ENCOUNTER → 2024-03-31 10:21 | Outpatient (BNVA) | payer OTHER, SELFPAY | PROVIDERS: PCP General Practice; Visit Provider Nurse Practitioner Adult Health | DX: E11.9 Type 2 diabetes mellitus without complications (principal); N28.9 Disorder of kidney and ureter, unspecified | CPT/HCPCS: 82947; 99212 ==

== ENCOUNTER 2024-05-12 09:32 | Outpatient (AMB) | payer OTHER, SELFPAY ==
--- NOTE | 2024-05-12 09:05 | A.OFFVIS_ITS ---
Vital Signs 05/12/24 09:33 Height 5 ft 6 in Weight 152 lb 1.903 oz BMI 24.5 BP 120/72 Blood Pressure Location Rt brachial Position Sitting Pulse 94 Pulse Source Pulse Oximeter Intake Visit Reasons: T2DM/CONFIRMED Intake Note: Patient presents today for a follow-up on Type 2 Diabetes Mellitus: Last Diabetic Eye exam: 01/2023 Last Podiatry Exam: Does not see a Ic Design Engineer Most recent HbA1c: 9.8%, 03/03/2024 Random Glucose- 254 mg/dL, Today Human Services Worker Required: Yes Human Services Worker Language: Water Purifier Operator Services: Human Services Worker Present Accompanied by: Self / Same As Patient Allergies Penicillins [PENICILLINS] Allergy (Intermediate, Verified 03/31/24 10:37) ITCH/RASH sulfamethoxazole [From Bactrim] Allergy (Intermediate, Verified 03/31/24 10:37) RASH sumatriptan Allergy (Intermediate, Verified 03/31/24 10:37) rash trimethoprim [From Bactrim] Allergy (Intermediate, Verified 03/31/24 10:37) RASH pepperoni Allergy (Intermediate, Uncoded 03/31/24 10:37) rash HPI Comments Details: 68 YO F who is seen in follow up for T2DM. She was last seen by Dr. Rueda 11/15 and by myself one month ago at which time metformin was changed to metformin ER to see if she would better GI tolerability and a trial off trulicity was advised. She did not get metformin at the pharmacy and is off both metformin and trulicity and she is not longer having any GI issues. Initially diagnosed with T2DM in >10 yrs. Last A1C was 9.8% on 03/03/24 same as 10/30/23 and up from previous of mid 7% in 2022. Was initially started on treatment with metformin. Trulicity: diarrhea and bloating Current regimen Tresiba 80 units Novolog 14 units before meals She tried freestyle khalif 3 but did not like dealing with the technology and it is now on back order. She would like to restart freestyle khalif 2 Denies hypoglycemia Family history of type 2 diabetes +Retinopathy: Has eyes checked yearly, last eye exam has appt 11/2023 +neuropathy, does not see podiatry but has in the past and had foot surgery. +nephropathy, on losartan Has HLD, on statin. Denies CAD. She denies cramping in the extremities. Not Had diabetes education. Saw nutitritionist at [facility] in the past. [facility] Medical History (Updated 05/12/24 @ 09:57 by Yuliya Clayton NP) Nephropathy Pre-ulcerative corn or callous Abnormal colonoscopy Colon adenomas Nausea & vomiting Irritable bowel syndrome with constipation History of hyperopia Gastroenteritis Memory impairment Hyperlipidemia Hypertension Myalgia and myositis Urinary incontinence Diabetes mellitus Depression Anxiety Insomnia History of lipoma Surgical History Hx of cataract extraction Hx of right breast biopsy Hx of colonoscopy History of esophagogastroduodenoscopy (EGD) Hx of foot surgery History of back surgery Hx of total hysterectomy Family History Mother Diabetes Father Prostate cancer Social History Household Members: None Household Members Other:: none Housing: Apartment Do you presently have visiting nurse or other home services: Yes (MEDICAL INSTRUCTOR and VNA) Alcohol intake: never Patient Tobacco Use Status: Never used Tobacco service: No Current occupational status: disabled Sexual orientation: Straight/Heterosexual Physical Exam Const Other: Absence of Cushingoid features. Absence of acromegalic features. Neck exam reveals nl size thyroid about 15 gms. No thyroid nodules palpable. No carotid bruits present. Lungs CTA. Heart S1 S2, Reg R/R. No M/R G. Skin exam reveals absence of vitiligo or acanthosis nigricans. No edema Visual exam of foot performed. No ulcerations or open lesions. No inter digit maceration or fissuring. No onychomycosis, no callouses. . Results Reviewed Results Reviewed: Laboratory Tests 08/30/22 09/22/23 11/24/23 10:13 09:54 09:55 Potassium 4.1 Estimated GFR > 60 Hgb A1c (Clinic) Urine Creatinine 143.68 228.61 Urine Microalbumin 721.0 1362.0 Microalb/Creat Ratio 501.8 595.7 H 03/03/24 09:59 Potassium Estimated GFR Hgb A1c (Clinic) 9.8 H Urine Creatinine Urine Microalbumin Microalb/Creat Ratio Assessment & Plan Assessment & Plan (1) Diabetes mellitus: Code(s): E11.9 - Type 2 diabetes mellitus without complications Category: Medical Plan: type 2 diabetic with nephropathy presents for f/u. Her GI issues have resolved o ff trulicity and metformin. She did not get the prescription for extended release metformin but will hold off for now and titrate insulin upward. She was asked to contact our office once she is on fs2 if her numbers are over 200 so that furthur adjustment to insulin can be made prior to her next appt. Will increase short acting insulin by 2 units to 16 units today. Medications: New flash glucose sensor (FreeStyle Khalif 2 Sensor kit) As directed 2 ea 11RF E11.9 - Type 2 diabetes mellitus without complications Discontinued blood-glucose meter,continuous (FreeStyle Khalif 3 [place]) Discontinued Reason: Doctor's Order As directed 1 ea 0RF blood-glucose sensor (FreeStyle Hkalif 3 Sensor device) Discontinued Reason: Doctor's Order As directed 2 ea 11RF Coding Level of Care Code Est Pt Level 4 (02876) Complex EM visit Add On G2211 Diagnoses Diabetes mellitus E11.9 Time Spent (min) 30 Comment Time spent reviewing labs/provider notes, face to face, chart doc
[2024-05-12 09:33] VITALS: BP 120/72; PULSE 94; BMI 24.5
[2024-05-12 09:51] LABS: Glucose, Whole Blood 254 mg/dL (60-115)
== END 2024-05-12 09:50 | disposition home or self-care (01) ==
PROVIDERS: PCP General Practice; Visit Provider Nurse Practitioner Adult Health
DX: E11.9 Type 2 diabetes mellitus without complications (principal)
CPT/HCPCS: 99214; G2211

== ENCOUNTER → 2024-05-12 09:32 | Outpatient (BNVA) | payer OTHER, SELFPAY | PROVIDERS: PCP General Practice; Visit Provider Nurse Practitioner Adult Health | DX: E11.9 Type 2 diabetes mellitus without complications (principal) | CPT/HCPCS: 82947; 99212 ==

== ENCOUNTER 2024-06-16 09:19 | Outpatient (AMB) | payer OTHER, SELFPAY ==
--- NOTE | 2024-06-16 07:33 | A.OFFVIS_ITS ---
Vital Signs 06/16/24 09:32 Height 5 ft 6 in Weight 154 lb 12.232 oz BMI 25.0 BP 110/74 Blood Pressure Location Rt brachial Position Sitting Pulse 75 Pulse Source Pulse Oximeter Intake Visit Reasons: T2DM/CONFIRMED Intake Note: Patient presents today for a follow-up on Type 2 Diabetes Mellitus: Last Diabetic Eye exam: Patient states she has yearly appt, Next appt is on 09/2024. Last Podiatry Exam: Does not see a Natural Gas Plant Technician Most recent HbA1c: 9.7% 06/16/24 Random Glucose- 206 mg/dL, Today Grill Chef Required: Yes Grill Chef Language: Lifeguard Services: Grill Chef Present Grill Chef Name: Aura Accompanied by: Self / Same As Patient Allergies Penicillins [PENICILLINS] Allergy (Intermediate, Verified 06/16/24 09:32) ITCH/RASH sulfamethoxazole [From Bactrim] Allergy (Intermediate, Verified 06/16/24 09:32) RASH sumatriptan Allergy (Intermediate, Verified 06/16/24 09:32) rash trimethoprim [From Bactrim] Allergy (Intermediate, Verified 06/16/24 09:32) RASH pepperoni Allergy (Intermediate, Uncoded 06/16/24 09:32) rash HPI Comments Details: 68 YO F who is seen in follow up for T2DM. She was last seen by myself 05/12/2024. Hemoglobin A1c 06/16/2024 9.7% , 9.8% on 03/03/24 same as 10/30/23 and up from previous of mid 7% in 2022. Initially diagnosed with T2DM in >10 yrs. Previous medications: Trulicity and regular strength metformin GI intolerability, declined trial on extended release metformin Was initially started on treatment with metformin. Trulicity: diarrhea and bloating. Tried freestyle 3: She felt technology was too complicated. Current regimen Tresiba 80 units Novolog 16 units before meals more than 300 18 units Freestyle devyn sensor 2 average glucose: 243 14 day glucose sensor report reviewed Glucose Management indicator 9.1 % TIme in ranges: Forty-one % very high (above 250) 30 % high (181-250) 26 % in range (70-180] 0 % low (69-55) 0 % very low (below 54) 33.9%Glucose variability (target <36%) Interpretation of CGMS [ glucose readings overall high in running higher after the meals] Denies hypoglycemia Family history of type 2 diabetes +Retinopathy: Has eyes checked yearly, last eye exam has appt 09/2023 has appt 10/19 +neuropathy: Numbness and tingling, no cramping in the lower extremity does not see podiatry but has in the past and had foot surgery. some pain relted to foot surgery +nephropathy, on losartan Has HLD, on statin. Most recent LDL 08/2023 46 Denies CAD. [facility] screen Fibrosis-4 (Fib-4) Index for liver fibrosis (calculated on lab work done: 11/2023 ) 1.14 points Advanced fibrosis excluded Approximate Fibrosis stage Caleb [ ] *Use with caution in patients <35 or >65 years old, as the score has been shown to be less reliable in these patients. Prior Imaging Ultrasound: LIVER: Hepatomegaly with right hepatic lobe measuring 17.8 cm. Left hepatic lobe measures 14.1 cm. Increased hepatic parenchymal heterogeneity and echogenicity could be associated with hepatocellular disease/hepatic steatosis and severely limits visualization. Correlation with liver function tests and clinical exam recommended to determine further management. ] Action Plan: Orderliver function tests, fibrosis panel and ultrasound with elastography Saw reginalditionist at [facility] in the past. [facility] Medical History (Updated 05/12/24 @ 09:57 by Yuliya Clayton NP) Nephropathy Pre-ulcerative corn or callous Abnormal colonoscopy Colon adenomas Nausea & vomiting Irritable bowel syndrome with constipation History of hyperopia Gastroenteritis Memory impairment Hyperlipidemia Hypertension Myalgia and myositis Urinary incontinence Diabetes mellitus Depression Anxiety Insomnia History of lipoma Surgical History Hx of cataract extraction Hx of right breast biopsy Hx of colonoscopy History of esophagogastroduodenoscopy (EGD) Hx of foot surgery History of back surgery Hx of total hysterectomy Family History Mother Diabetes Father Prostate cancer Social History Household Members: None Household Members Other:: none Housing: Apartment Do you presently have visiting nurse or other home services: Yes (INSULATION BLANKET MAKER and VNA) Alcohol intake: never Patient Tobacco Use Status: Never used Tobacco service: No Current occupational status: disabled Sexual orientation: Straight/Heterosexual Physical Exam Vital Signs: Last Vital Signs Pulse 75 06/16/24 09:32 BP 110/74 06/16/24 09:32 BMI result Body Mass Index 25.0 Const Other: Absence of Cushingoid features. Absence of acromegalic features. Neck exam reveals nl size thyroid about 15 gms. No thyroid nodules palpable. No carotid bruits present. Lungs CTA. Heart S1 S2, Reg R/R. No M/R G. Skin exam reveals absence of vitiligo or acanthosis nigricans. No edema Visual exam of foot performed. No ulcerations or open lesions. No inter digit maceration or fissuring. No onychomycosis, no callouses. Sensation diminished to monofilament exam. Vibratory sensation diminished with 128 Hz tuning fork. Results AMB Hemoglobin A1c AMB Hemoglobin A1c 9.7 % Last Edit by TY Schroeder on 06/16/24 09:54 Results Reviewed Results Reviewed: Laboratory Last Values Glucose (Clinic) 206 mg/dL (60-115) H 06/16/24 09:37 Hgb A1c (Clinic) 9.7 % (4.0-6.0) H 06/16/24 09:51 Assessment & Plan Assessment & Plan (1) Diabetes mellitus: Code(s): E11.9 - Type 2 diabetes mellitus without complications Category: Medical Plan: 57-year-old diabetic with neuropathy, retinopathy and nephropathy with the elevated glucose readings. Titrate insulin upward new dosing: Tresiba 84 units NovoLog 80-200 18 units 201-250 20 units 250-300 22 units Over 300 24 units The patient had an opportunity to ask questions regarding treatment plan. The patient expressed understanding and agreement with the above treatment plan. The patient is aware they should contact our office by phone for worsening glucose readings or for any low blood sugars which may warrant a change in diabetes medication. Compliance is encouraged with medications and any followup testing/consults which may have been ordered. I Orders: Orders Liver Fibrosis Pnl 06/21/24 K76.0 - Fatty (change of) liver, not elsewhere classified Liver Panel 06/21/24 K76.0 - Fatty (change of) liver, not elsewhere classified US abdomen aguilar w elastography 1 Week K76.0 - Fatty (change of) liver, not elsewhere classified AMB Hemoglobin A1c 06/16/24 E11.9 - Type 2 diabetes mellitus without complications Medications: Discontinued metformin ER Discontinued Reason: Doctor's Order 1,000 mg PO BID 30 days 60 tabs 5RF E11.9 - Type 2 diabetes mellitus without complications Scribe Plan - Not visible on output: The patient was counseled to achieve a target A1C of 7% (154 avg). Fasting blood sugars should be 90-130 in the morning and less than 180 two hours after meals. Reviewed the relationship between poor diabetic control and the development of complications. Wear closed toe shoes, never walk barefooted and inspect the feet daily. For any signs of infection or open wound patient you should notify your PCP or go to urgent care/ER. The patient was counseled to always carry a source of sugar and on the rule of 15's: Take 3 glucose tablets and repeat again in 15 minutes if blood sugar is not in normal range. Continue to repeat every 15 minutes until blood sugar is normal. Coding Level of Care Code Est Pt Level 4 (33356) Diagnoses Diabetes mellitus E11.9 Time Spent (min) 40 Comment Time spent reviewing labs/provider notes, face to face, chart doc
[2024-06-16 09:32] VITALS: BP 110/74; PULSE 75; BMI 25.0
[2024-06-16 09:41] LABS: Glucose, Whole Blood 206 mg/dL (60-115)
== END 2024-06-16 10:11 | disposition home or self-care (01) ==
PROVIDERS: PCP General Practice; Visit Provider Nurse Practitioner Adult Health
DX: E11.9 Type 2 diabetes mellitus without complications (principal)
CPT/HCPCS: 99214

== ENCOUNTER → 2024-06-16 09:19 | Outpatient (BNVA) | payer OTHER, SELFPAY | PROVIDERS: PCP General Practice; Visit Provider Nurse Practitioner Adult Health | DX: E11.9 Type 2 diabetes mellitus without complications (principal) | CPT/HCPCS: 82947; 83036; 99212 ==

== ENCOUNTER 2024-06-21 09:28 | Outpatient (REF) | payer OTHER, SELFPAY ==
[2024-06-21 11:06] LABS: Alanine Aminotransferase 30 U/L (0-31); Albumin Level 4.1 g/dL (3.5-5.0); Alkaline Phosphatase 81 U/L (39-117); Aspartate Amino Transferase 28 U/L (5-31); Bilirubin Direct < 0.2 mg/dL (0.0-0.5); Bilirubin Total 0.2 mg/dL (0.0-1.0); Calcium 10.1 mg/dL (8.4-10.2); Parathyroid Hormone Intact 61.8 pg/mL (8.7-77.1)
[2024-06-21 11:22] LABS: Free T4 (Free Thyroxine) 0.94 ng/dL (0.71-1.85); TSH reflex Free T4 1.43 uIU/mL (0.32-4.0); Thyroid Stimulating Hormone 1.43 uIU/mL (0.32-4.0)
[2024-06-23 12:39] LABS: Calcium, Ionized 5.4 mg/dL (4.7-5.5)
[2024-06-26 15:38] LABS: Vitamin D 25-OH, D2 <4 ng/mL; Vitamin D 25-OH, D3 20 ng/mL; Vitamin D 25-OH, Total 20 ng/mL (30-100)
[2024-06-29 14:59] LABS: FIB-ALT 19 U/L (6-29); FIB-Alpha-2-Macroglobulin 343 mg/dL (106-279); FIB-Apolipoprotein A1 168 mg/dL (101-198); FIB-GGT 92 U/L (3-65); FIB-Haptoglobin 287 mg/dL (43-212); FIB-Total Bilirubin 0.2 mg/dL (0.2-1.2); Liver Fibrosis Score 0.28; Liver Fibrosis Stage F1; Nec Inflam Act Grade A0; Nec Inflam Act Score 0.07; Reference ID 5186011
[2024-07-02 20:49] LABS: Alkaline Phosphatase Bone 10.9 mcg/L (5.6-29.0)
== END 2024-06-21 09:29 | disposition home or self-care (01) ==
LOC: HO.LAB 09:28
PROVIDERS: PCP General Practice; Visit Provider Nurse Practitioner Adult Health
DX: E11.9 Type 2 diabetes mellitus without complications (principal); E83.52 Hypercalcemia; K76.0 Fatty (change of) liver, not elsewhere classified
CPT/HCPCS: 36415; 80076; 81596; 82306; 82310; 82330; 83970; 84075; 84439; 84443

== ENCOUNTER 2024-06-30 10:48 | Outpatient (AMB) | payer OTHER, SELFPAY ==
--- NOTE | 2024-06-30 10:43 | A.OFFVIS_ITS ---
Vital Signs 06/30/24 10:59 Height 5 ft 6 in Weight 147 lb 11.355 oz BMI 23.8 BP 140/90 H Blood Pressure Location Rt brachial Position Sitting Pulse 72 Pulse Source Pulse Oximeter Intake Visit Reasons: [id number] TO LVM Intake Note: Patient presents today for a follow-up on Type 2 Diabetes Mellitus: Last Diabetic Eye exam: Patient states she has yearly appt, Next appt is on 09/2024. Last Podiatry Exam: Does not see a Grain Cleaner And Transfer Operator Most recent HbA1c: 9.7% 06/16/24 Random Glucose- 315 mg/dL, Today Broaching Machine Operator Required: Yes Broaching Machine Operator Language: Chancellor Services: Broaching Machine Operator Present Broaching Machine Operator Name: TY Tafoya/ALYSSA SPAN Information Interpreted: non-clinical & clinical Accompanied by: Self / Same As Patient Allergies Penicillins [PENICILLINS] Allergy (Intermediate, Verified 06/16/24 09:32) ITCH/RASH sulfamethoxazole [From Bactrim] Allergy (Intermediate, Verified 06/16/24 09:32) RASH sumatriptan Allergy (Intermediate, Verified 06/16/24 09:32) rash trimethoprim [From Bactrim] Allergy (Intermediate, Verified 06/16/24 09:32) RASH pepperoni Allergy (Intermediate, Uncoded 06/16/24 09:32) rash Medication List - Last Reconciled 06/30/24 by Yuliya Clayton NP atorvastatin 1 tab PO BEDTIME blood sugar diagnostic (FreeStyle Lite Strips) As directed blood sugar diagnostic (FreeStyle Lite Strips) As directed 3 times a day cetirizine 10 mg PO BID cholecalciferol (vitamin D3) (Vitamin D3) 50 mcg PO DAILY clonazepam 1 tab PO DAILY PRN empagliflozin (Jardiance) 10 mg PO DAILY 30 days flash glucose sensor (FreeStyle Khalif 2 Sensor kit) As directed insulin aspart U-100 (Novolog FlexPen U-100 Insulin aspart) 80-150 15units 151- 200 16units 201-250 17units 251-300 18units over 300 19 units subcutaneously 3 times a day with meals 30 days insulin degludec (Tresiba FlexTouch U-200 insulin) 80 units subcut lamotrigine 200 mg PO DAILY lancets (TRUEplus Lancets) As directed losartan 25 mg PO DAILY mirtazapine 7.5 mg PO BEDTIME multivitamin 1 tab PO DAILY omeprazole 20 mg PO DAILY pen needle, diabetic (UltiCare Pen Needle) As directed twice a day prazosin 5 mg PO BEDTIME risperidone mg PO trazodone 2 tabs PO BEDTIME HPI Comments Details: 68 YO F who is seen in follow up for T2DM. She was last seen by myself 06/16/2024 at which time basal bolus insulin was adjusted upward. Hemoglobin A1c 06/16/2024 9.7% , 9.8% on 03/03/24 same as 10/30/23 and up from previous of mid 7% in 2022. She recently had surgery for right carpal tunnel Initially diagnosed with T2DM in >10 yrs. Previous medications: Trulicity and regular strength metformin GI intolerability, declined trial on extended release metformin Was initially started on treatment with metformin. Trulicity: diarrhea and bloating. Tried freestyle 3: She felt technology was too complicated. Current regimen Tresiba 84 units NovoLog 80-200 18 units 201-250 20 units 250-300 22 units Over 300 24 units Freestyle khalif sensor 2 average glucose: 206 14 day glucose sensor report reviewed Glucose Management indicator 8.2 % Time CGM active [ ] % TIme in ranges: Twenty-eight % very high (above 250) 28 % high (181-250) 44 % in range (70-180] 0 % low (69-55) 0 % very low (below 54) 33.5% Glucose variability (target <36%) Interpretation of CGMS [readings 150s at nighttime rising after breakfast and staying up through the afternoon ] Denies hypoglycemia Family history of type 2 diabetes +Retinopathy: Has eyes checked yearly, last eye exam has appt 09/2023 has appt 10/19 +neuropathy: Numbness and tingling, no cramping in the lower extremity does not see podiatry but has in the past and had foot surgery. some pain related to foot surgery +nephropathy, on losartan Has HLD, on statin. Most recent LDL 08/2023 46 Denies CAD. [facility] screen Fibrosis-4 (Fib-4) Index for liver fibrosis (calculated on lab work done: 11/2023 ) 1.08 points Advanced fibrosis excluded Approximate Fibrosis stage Caleb [0-1] *Use with caution in patients <35 or >65 years old, as the score has been shown to be less reliable in these patients. Prior Imaging Ultrasound: LIVER: Hepatomegaly with right hepatic lobe measuring 17.8 cm. Left hepatic lobe measures 14.1 cm. Increased hepatic parenchymal heterogeneity and echogenicity could be associated with hepatocellular disease/hepatic steatosis and severely limits visualization. Correlation with liver function tests and clinical exam recommended to determine further management. ] Action Plan: ultrasound with elastography Saw reginalditionist at [facility] in the past. [facility] Medical History (Updated 05/12/24 @ 09:57 by Yuliya Clayton NP) Nephropathy Pre-ulcerative corn or callous Abnormal colonoscopy Colon adenomas Nausea & vomiting Irritable bowel syndrome with constipation History of hyperopia Gastroenteritis Memory impairment Hyperlipidemia Hypertension Myalgia and myositis Urinary incontinence Diabetes mellitus Depression Anxiety Insomnia History of lipoma Surgical History (Updated 06/30/24 @ 11:26 by TY Tafoya) History of carpal tunnel surgery Hx of cataract extraction Hx of right breast biopsy Hx of colonoscopy History of esophagogastroduodenoscopy (EGD) Hx of foot surgery History of back surgery Hx of total hysterectomy Family History Mother Diabetes Father Prostate cancer Social History Household Members: None Household Members Other:: none Housing: Apartment Do you presently have visiting nurse or other home services: Yes (FUR EXAMINER and VNA) Alcohol intake: never Patient Tobacco Use Status: Never used Tobacco service: No Current occupational status: disabled Sexual orientation: Straight/Heterosexual Physical Exam Vital Signs: Last Vital Signs Pulse 72 06/30/24 10:59 BP 140/90 H 06/30/24 10:59 BMI result Body Mass Index 23.8 Const Other: Absence of Cushingoid features. Absence of acromegalic features. Neck exam reveals nl size thyroid about 15 gms. No thyroid nodules palpable. Skin exam reveals absence of vitiligo or acanthosis nigricans. No edema Results Reviewed Results Reviewed: Laboratory Last Values Glucose (Clinic) 315 mg/dL (60-115) H 06/30/24 11:02 Laboratory Tests 06/21/24 10:19 Liver GGT 92 H Liver Total Bilirubin 0.2 Liver Apolipoprotein A1 168 Liver h-3-Roeckejqbommn 343 H Liver Haptoglobin 287 H Liver Fibrosis Score 0.28 Liver Fibrosis Stage F1 Necroinflammator Score 0.07 25-OH Vitamin D Total 20 L TSH 1.43 Free T4 0.94 Assessment & Plan Assessment & Plan (1) Diabetes mellitus: Code(s): E11.9 - Type 2 diabetes mellitus without complications Category: Medical Plan: 57-year-old diabetic with neuropathy, retinopathy and nephropathy with the elevated glucose readings. Two weeks sensor data with an average of 206 down from previous of 245. add Jardiance. No change in insulin dosing with the exception of if she is starting to run low on the Jardiance she can reduce short-acting by 50%. Tresiba 84 units NovoLog 80-200 18 units 201-250 20 units 250-300 22 units Over 300 24 units Side effects of sglt-2 inhibitor reviewed: uti, candidal infection, open wound genital area, dehydration, dka Recheck labs in 4-5 weeks after starting. LIver fibrosis panel: elevated GGT, liver haptoglobulin and A-2 macro globulin elevated and will refer to GI. (2) Elevated liver enzymes: Code(s): R74.8 - Abnormal levels of other serum enzymes Plan: seeabove Orders: Orders Creatinine 4 Weeks E11.9 - Type 2 diabetes mellitus without complications Electrolytes 4 Weeks E11.9 - Type 2 diabetes mellitus without complications Referrals Gastroenterology Referral R74.8 - Abnormal levels of other serum enzymes Medications: New empagliflozin (Jardiance) 10 mg PO DAILY 30 days 30 tabs 2RF E11.9 - Type 2 diabetes mellitus without complications Coding Level of Care Code Est Pt Level 3 (40017) Complex EM visit Add On G2211 Diagnoses Diabetes mellitus E11.9 Elevated liver enzymes R74.8 Time Spent (min) 30 Comment Time spent reviewing labs/provider notes, glucose,sensor reports, face to face, chart doc
[2024-06-30 10:59] VITALS: BP 140/90; PULSE 72; BMI 23.8
[2024-06-30 11:18] LABS: Glucose, Whole Blood 315 mg/dL (60-115)
== END 2024-06-30 11:44 | disposition home or self-care (01) ==
LOC: HO.ENCR 10:48
PROVIDERS: PCP General Practice; Visit Provider Nurse Practitioner Adult Health
DX: E11.9 Type 2 diabetes mellitus without complications (principal); R74.8 Abnormal levels of other serum enzymes
CPT/HCPCS: 99213; G2211

== ENCOUNTER → 2024-06-30 10:48 | Outpatient (BNVA) | payer OTHER, SELFPAY | PROVIDERS: PCP General Practice; Visit Provider Nurse Practitioner Adult Health | DX: E11.9 Type 2 diabetes mellitus without complications (principal); R74.8 Abnormal levels of other serum enzymes | CPT/HCPCS: 82947; 99212 ==

== ENCOUNTER 2024-07-07 09:17 | Outpatient (REF) | payer OTHER, SELFPAY | END 2024-07-07 09:18 | disposition home or self-care (01) | LOC: HO.US 09:17 | PROVIDERS: PCP General Practice; Visit Provider Nurse Practitioner Adult Health | DX: K76.0 Fatty (change of) liver, not elsewhere classified (principal) | CPT/HCPCS: 76705; 76981 ==

== ENCOUNTER 2024-07-29 12:28 | Outpatient (REF) | payer OTHER, SELFPAY ==
--- NOTE | ~2024-07-29 | MM_ITS ---
EXAMINATION: MM DIAGNOSTIC DIGITAL MAMMOGRAPHY, LEFT CLINICAL INFORMATION: 6 month follow-up for grouped coarse calcifications in the upper outer left breast. COMPARISON: Mammography: Comparison is made with available prior examinations. TECHNIQUE: Digital mammography is performed in craniocaudal and mediolateral oblique views along with computer-aided detection (CAD). FINDINGS: The breasts are heterogeneously dense, which may obscure small masses (ACR BI-RADS breast composition Category c). There are 2 groups of coarse heterogeneous calcifications in the upper outer breast posterior depth and upper outer breast middle depth not significantly changed from prior magnification views 6 months ago. No suspicious masses or other abnormal findings. Results are provided to the patient at time of visit by the technologist. MM/MM diagnostic mammo unilat LT IMPRESSION: Grouped calcifications in the upper outer breast posterior depth and upper outer breast middle depth not significantly changed from magnification views 6 months ago. Recommend 6 month follow-up with Magnification views when the patient is due for bilateral mammography for further evaluation of stability. ASSESSMENT: BI-RADS BI-RADS 3 - Probably benign finding(s) - 6 month follow-up suggested RECOMMENDATION: 6 Month F/U This patient's information was entered into a reminder system with a target due date for their next mammogram. Electronically signed by: Susana Garcia DO 07/29/2024 02:02 PM WILMER HERNANDEZ
--- OUTSIDE RECORDS SUMMARY | 2024-08-04 02:08 | XMS_ITS | Data Portability ---
Author Organization [employer] [facility] [place] - [facility] Address [address] [place] [id number] Care Team Providers Care Final Inspection Supervisor Name Role Phone [facility] Referring Provider YASEMIN LAMBERT Primary Care Provider Assessment Encounter Date Assessment Date Assessment LastModified by Organization Details LastModified Time 10/18/2022 10/18/2022 I provided real -time medical direction via phone for this encounter, and was available for additional phone based assistance as needed. I have reviewed and agree with the Assessment and Plan as documented by the Business Services Representative. Patient given the opportunity to ask questions. [email or web address] Not available 10/18/2022 23:13:30 12/11/2022 12/11/2022 I provided real -time medical direction via phone for this encounter, and was available for additional phone based assistance as needed. I have reviewed and agree with the Assessment and Plan as documented by the Business Services Representative. Patient given the opportunity to ask questions. Advised if develops CP/severe SOB/ increased abd pain/uncontrolle d n/v/d or black/bloody emesis or stool/ AMS/ syncope/ hi fever to call 911- verbalized understanding of instructions [email or web address] Not available 12/11/2022 16:54:21 05/06/2023 05/06/2023 I provided real -time medical direction via phone for this encounter, and was available for additional phone based assistance as needed. I have reviewed the Assessment and Plan as documented by the Business Services Representative. Patient given the opportunity to ask questions. [email or web address] Not available 05/07/2023 10:28:45 Plan of Treatment Reminders Order Date Submit Date Provider Last Modified By Organization Details Last Modified Time Details Appointments None recorded. Lab urinalysis, dipstick 2022 023 [email or web address] 0 [facility], [address] [place] [address], [id number], 3 23:34:46 BMP, serum or plasma 2022 023 [email or web address] 0 [facility], [address] [place] [address], [id number], 3 23:34:46 BMP, serum or plasma 2022 023 [email or web address] 0 [facility], [address] [place] [address], [id number], 3 17:09:27 BMP, serum or plasma 2022 023 [email or web address] 0 [facility], [address] [place] [address], [id number], 3 10:28:26 rapid SARS CoV 2 Ag, QL IA, respiratory specimen 2022 023 [email or web address] 0 [facility], [address] [place] [address], [id number], 3 10:28:26 rapid flu (A+B) 2022 023 [email or web address] 0 [facility], [address] [place] [address], [id number], 3 10:28:26 Referral None recorded. Procedures None recorded. Surgeries None recorded. Imaging None recorded. Medication Orders sodium chloride 0.9 % intravenous solution 2022 023 [email or web address] 0 Not available 3 23:34:46 ondansetron 4 mg disintegrat ing tablet 2022 023 [facility], [address] [place] [address], [id number], 3 17:01:14 sodium chloride 0.9 % intravenous solution 2022 023 [email or web address] 0 [facility], [address] [place] [address], [id number], 3 17:09:27 ondansetron HCl (PF) 4 mg/2 mL injection solution [address] [facility], [address] [place] [address], [id number], 3 17:09:27 sodium chloride 0.9 % intravenous solution [address] [facility], [address] [place] [address], [id number], 3 10:28:26 ondansetron HCl (PF) 4 mg/2 mL injection solution [address] [facility], [address] [place] [address], [id number], 3 10:28:26 Patient TargetsNo targets recorded. Patient InstructionsNo instructions recorded. Reason for Referral None Reported. Results Created Date Observation Date Name Description Value Unit Range Abnormal Flag Note LastModifiedBy Organization Detail LastModifiedTime 10/18/1910/18/2022 urina lysis , dipst ick Leukocytes neg Not Available [facility] [address] [place] [address], [id number], 10/18/2022 23:20:01 10/18/19 23 10/18/2022 urina lysis , dipst ick Nitrite negati ve Not Available [facility] [address], [address], 10/18/2022 23:20:01 10/18/19 23 10/18/2022 urina lysis , dipst ick Urobilinogen neg Not Available [facility] [address] [place] [address], [id number], 10/18/2022 23:20:01 10/18/19 23 10/18/2022 urina lysis , dipst ick Protein neg Not Available [facility] [address] [place] [address], [address], 10/18/2022 23:20:01 10/18/19 23 10/18/2022 urina lysis , dipst ick pH 6.5 Not Available [facility] [address], [address], 10/18/2022 23:20:01 10/18/19 23 10/18/2022 urina lysis , dipst ick Blood neg Not Available [facility] [address] [place] [address], [id number], 10/18/2022 23:20:01 10/18/19 23 10/18/2022 urina lysis , dipst ick Specific [place] 1;025 Not Available [facility] [address] [place] [address], [address], 10/18/2022 23:20:01 10/18/19 23 10/18/2022 urina lysis , dipst ick Ketone trace Not Available [facility] [address], [address], 10/18/2022 23:20:01 10/18/19 23 10/18/2022 urina lysis , dipst ick Bilirubin trace Not Available [facility] [address] [place] [address], [address], 10/18/2022 23:20:01 10/18/19 23 10/18/2022 urina lysis , dipst ick Glucose negati ve Not Available [facility] [address] [place] [address], [address], 10/18/2022 23:20:01 10/18/19 23 10/18/2022 urina lysis , dipst ick Appearance clear Not Available [facility] [address] [place] [address], [address], 10/18/2022 23:20:01 10/18/19 23 10/18/2022 urina lysis , dipst ick Color yelllo w Not Available [facility] [address] [place] [address], [address], 10/18/2022 23:20:01 10/18/19 23 10/18/2022 BMP, serum or plasm a BUN 8 Not Available [facility] [address], [address], 10/18/2022 23:20:03 10/18/19 23 10/18/2022 BMP, serum or plasm a Ca I az = 1.21 Not Available [facility] [address] [place] [address], [address], 10/18/2022 23:20:03 10/18/19 23 10/18/2022 BMP, serum or plasm a CI- 102 Not Available [facility] [address], [address], 10/18/2022 23:20:03 10/18/19 23 10/18/2022 BMP, serum or plasm a CRE 0.5 Not Available [facility] [address], [address], 10/18/2022 23:20:03 10/18/19 23 10/18/2022 BMP, serum or plasm a GLU 100 Not Available [facility] [address], [address], 10/18/2022 23:20:03 10/18/19 23 10/18/2022 BMP, serum or plasm a K+ 4 Not Available [facility] [address], [address], 10/18/2022 23:20:03 10/18/19 23 10/18/2022 BMP, serum or plasm a Na+ 138 Not Available [facility] [address], [address], 10/18/2022 23:20:03 10/18/1910/18/2022 BMP, serum or plasm a tCO2 25 Not Available [facility] [address], [address], 10/18/2022 23:20:03 12/12/19 23 12/11/2022 BMP, serum or plasm a BUN 11 Not Available [facility] [address], [address], 12/11/2022 17:06:59 12/12/19 23 12/11/2022 BMP, serum or plasm a Ca I az 1.26 Not Available [facility] [address], [address], 12/11/2022 17:06:59 12/12/19 23 12/11/2022 BMP, serum or plasm a CI- 106 Not Available [facility] [address], [address], 12/11/2022 17:06:59 12/12/19 23 12/11/2022 BMP, serum or plasm a CRE 0.6 Not Available [facility] [address], [address], 12/11/2022 17:06:59 12/12/19 23 12/11/2022 BMP, serum or plasm a GLU 146 Not Available [facility] [address], [address], 12/11/2022 17:06:59 12/12/19 23 12/11/2022 BMP, serum or plasm a K+ 3.9 Not Available [facility] [address], [address], 12/11/2022 17:06:59 12/12/19 23 12/11/2022 BMP, serum or plasm a Na+ 140 Not Available [facility] [address], [address], 12/11/2022 17:06:59 12/12/1912/11/2022 BMP, serum or plasm a tCO2 19 Not Available [facility] [address], [address], 12/11/2022 17:06:59 05/06/2005/06/2023 rapid flu (A+B) Flu negati ve Not Available [facility] [address] [place] [address], [address], 05/06/2023 12:56:53 05/06/2005/06/2023 rapid SARS CoV 2 Ag, QL IA, respi rator y speci men rapid SARS CoV 2 Ag, QL IA, respiratory specimen negati ve Not Available [facility] [address] [place] [address], [address], 05/06/2023 12:56:51 05/07/2005/07/2023 BMP, serum or plasm a BUN 14 Not Available [facility] [address], [address], 05/06/2023 12:56:14 05/07/2005/07/2023 BMP, serum or plasm a Ca I AZ 5(nl) Not Available [facility] [address] [place] [address], [address], 05/06/2023 12:56:14 05/07/2005/07/2023 BMP, serum or plasm a CI- 103 Not Available [facility] [address], [address], 05/06/2023 12:56:14 05/07/2005/07/2023 BMP, serum or plasm a CRE 0.54 Not Available [facility] [address], [address], 05/06/2023 12:56:14 05/07/20 23 05/07/2023 BMP, serum or plasm a GLU 163 Not Available [facility] [address], [address], 05/06/2023 12:56:14 05/07/20 23 05/07/2023 BMP, serum or plasm a K+ 4.5 Not Available [facility] [address], [address], 05/06/2023 12:56:14 05/07/20 23 05/07/2023 BMP, serum or plasm a Na+ 139 Not Available [facility] [address], [address], 05/06/2023 12:56:14 05/07/20 23 05/07/2023 BMP, serum or plasm a tCO2 23 Not Available [facility] [address], [address], 05/06/2023 12:56:14 Result Notes None recorded. Medical Equipment None Reported. Allergies Allergen ID Allergen Name Allergen Category Reaction Reaction Severity Criticality Documentation Date Start Date Code Code System Note Provider Name and Address Organization Details Recorded Time 1956 Product containin g angiotens in-conver ting enzyme inhibitor (product) medicatio n cough Not available Not available 10/18/2022 47704 009 SNOMED Ale Mendoza MD [address] [place] [address],[address], [place], [address], [facility] 3 22:57:07 1958 Bactrim medicatio n Not available Not available Not available 10/18/2022 77825 9 RxNorm Ale Mendoza MD [address] [place] [address],[address], [place], [address], Validas 3 22:57:21 1960 Medicinal product containin g penicilli n and acting as antibacte rial agent (product) medicatio n Not available Not available Not available 10/18/2022 88642 05 SNOMED Not Available [facility] 4 03:47:40 8911 aspirin medicatio n Not available Not available Not available 06/22/2024 1191 RxNorm Not Available [facility] 4 03:47:40 8912 omeprazol e medicatio n Not available Not available Not available 06/22/2024 7646 RxNorm Not Available [facility] production 03:47:40 Medications Name Sig Start Date Stop Date Status Note LastModified by Organization Details LastModified Time medbox status USE DIRECTED active Not Available Not Available No t Available multivitamin tablet TAKE 1 TABLET BY MOUTH EVERY MORNING WITH FOOD active Not Available Not Available No t Available losartan 50 mg tablet TAKE 1 TABLET BY MOUTH EVERY MORNING active Not Available Not Available No t Available quetiapine 25 mg tablet TAKE 1 TABLET BY MOUTH AT BEDTIME active Not Available Not Available No t Available atorvastatin 40 mg tablet TAKE 1 TABLET BY MOUTH AT BEDTIME active Not Available Not Available No t Available lamotrigine 150 mg tablet TAKE 1 TABLET BY MOUTH AT BEDTIME active Not Available Not Available No t Available terconazole 0.4 % vaginal cream INSERT ONE APPLICATORF UL VAGINALLY AT BEDTIME FOR 7 DAYS. active Not Available Not Available Not Available lamotrigine 200 mg tablet TAKE 1 TABLET BY MOUTH AT BEDTIME active Not Available Not Available No t Available cetirizine 10 mg tablet TAKE 1 TABLET BY MOUTH TWICE DAILY FOR ANGIOEDEMA active Not Available Not Available N ot Available miconazole nitrate 2 % topical cream APPLY TO AFFECTED AREA(S) TO EXTERNAL VULVAR AREA TWICE DAILY IN THE MORNING AND IN THE EVENING active Not Available Not Available No t Available simethicone 180 mg capsule TAKE 1 CAPSULE BY MOUTH FOUR TIMES DAILY AFTER MEALS AND AT BEDTIME NEEDED active Not Available Not Available No t Available tizanidine 4 mg tablet TAKE 1 TABLET BY MOUTH EVERY 6 TO 8 HOURS NEEDED. NO MORE THAN 3 TABLETS IN 24 HOURS. active Not Available Not Available No t Available ketotifen 0.025 % (0.035 %) eye drops INSTILL 1 DROP IN EACH EYE TWICE DAILY FOR ITCHING active Not Available Not Available Not Available senna 8.6 mg tablet TAKE 2 TABLETS BY MOUTH EVERY DAY active Not Available Not Available No t Available prednisone 20 mg tablet TAKE 2 TABLETS BY MOUTH ONCE DAILY WITH FOOD FOR 5 DAYS active Not Available Not Available No t Available clonazepam 0.5 mg tablet TAKE 1 TABLET BY MOUTH ONCE DAILY NEEDED active Not Available Not Available No t Available quetiapine 200 mg tablet TAKE 1 TABLET BY MOUTH AT BEDTIME active Not Available Not Available No t Available miconazole nitrate 2 % vaginal cream INSERT 1 APPLICATORF UL VAGINALLY EVERY DAY AT BEDTIME active Not Available Not Available N ot Available clonazepam 1 mg tablet TAKE 1 TABLET BY MOUTH AT BEDTIME active Not Available Not Available No t Available metronidazol e 500 mg tablet TAKE 1 TABLET BY MOUTH THREE TIMES DAILY FOR 7 DAYS active Not Available Not Available N ot Available Enema Disposable 19 gram-7 gram/118 mL USE DIRECTED ON PACKAGE active Not Available Not Available No t Available ciprofloxaci n 500 mg tablet TAKE 1 TABLET BY MOUTH TWICE DAILY FOR 7 DAYS active Not Available Not Available No t Available tramadol 50 mg tablet TAKE 1 TABLET BY MOUTH EVERY TWELVE HOURS NEEDED active Not Available Not Available No t Available quetiapine 100 mg tablet TAKE 1 TABLET BY MOUTH AT BEDTIME active Not Available Not Available No t Available risperidone 3 mg tablet TAKE 1/2 TABLET BY MOUTH AT BEDTIME active Not Available Not Available No t Available risperidone 2 mg tablet TAKE 1 TABLET BY MOUTH AT BEDTIME active Not Available Not Available No t Available prazosin 5 mg capsule TAKE 1 CAPSULE BY MOUTH AT BEDTIME active Not Available Not Available No t Available glyburide 5 mg-metformin 500 mg tablet TAKE 1 TABLET BY MOUTH TWICE DAILY IN THE MORNING AND IN THE EVENING WITH MEALS active Not Available Not Available N ot Available lorazepam 2 mg tablet TAKE 1 TABLET BY MOUTH AT BEDTIME NEEDED FOR ANXIETY active Not Available Not Available No t Available diphenhydram ine 25 mg capsule TAKE 1 CAPSULE BY MOUTH EVERY 8 HOURS NEEDED FOR ITCHING active Not Available Not Available No t Available trazodone 150 mg tablet TAKE 2 TABLETS BY MOUTH EVERY DAY AT BEDTIME active Not Available Not Available No t Available metformin 1,000 mg tablet TAKE 1 TABLET BY MOUTH TWICE DAILY IN THE MORNING AND IN THE EVENING WITH MEALS active Not Available Not Available N ot Available losartan 25 mg tablet TAKE 1 TABLET BY MOUTH EVERY MORNING active Not Available Not Available No t Available docusate sodium 100 mg capsule TAKE 1 CAPSULE BY MOUTH TWICE DAILY IN THE MORNING AND IN THE EVENING active Not Available Not Available No t Available omeprazole 20 mg capsule,simin yed release TAKE 1 CAPSULE BY MOUTH TWICE DAILY IN THE MORNING AND IN THE EVENING BEFORE MEALS active Not Available Not Available No t Available bisacodyl 5 mg tablet,delay ed release TAKE 2 TABLETS BY MOUTH ONCE DAILY DIRECTED active Not Available Not Available No t Available mirtazapine 15 mg tablet TAKE 1 TABLET BY MOUTH AT BEDTIME active Not Available Not Available No t Available sodium chloride 0.9 % intravenous solution 1000 ml ordered- medic able to infuse 500 ml by the time patient arrived in the ED 2022 active Not Available Not Available Not Avai lable lorazepam 1 mg tablet TAKE 1 AND 1/2 TABLETS BY MOUTH AT BEDTIME NEEDED FOR ANXIETY active Not Available Not Available No t Available ondansetron 4 mg disintegrati ng tablet Place 1 tablet every 6-8 hours by translingua l route as needed. active Not Available Not Available No t Available risperidone 1 mg tablet TAKE 1 TABLET BY MOUTH AT BEDTIME active Not Available Not Available No t Available lamotrigine 100 mg tablet TAKE 1 TABLET BY MOUTH AT BEDTIME active Not Available Not Available No t Available Novolog FlexPen U-100 Insulin aspart 100 unit/mL (3 mL) subcutaneous INJECT 12 UNITS SUBCUTANEOU SLY WITH BREAKFAST, INJECT 10 UNITS WITH LUNCH, AND INJECT 12 UNITS WITH DINNER active Not Available Not Available No t Available mirtazapine 7.5 mg tablet TAKE 1 TABLET BY MOUTH AT BEDTIME active Not Available Not Available No t Available nitrofuranto in monohydrate/ macrocrystal s 100 mg capsule TAKE 1 CAPSULE BY MOUTH WITH FOOD EVERY TWELVE HOURS UNTIL FINISHED active Not Available Not Available No t Available lactulose 10 gram/15 mL oral solution TAKE 30ml BY MOUTH TWICE DAILY NEEDED FOR CONSTIPATIO N active Not Available Not Available No t Available quetiapine 50 mg tablet TAKE 1 TABLET BY MOUTH AT BEDTIME active Not Available Not Available No t Available Januvia 50 mg tablet TAKE 1 TABLET BY MOUTH EVERY MORNING active Not Available Not Available No t Available Januvia 100 mg tablet TAKE 1 TABLET BY MOUTH EVERY MORNING active Not Available Not Available No t Available ondansetron HCl (PF) 4 mg/2 mL injection solution 4 mg iv for nausea 2022 active Not Available Not Available Not Avai lable FreeStyle Lite Strips TEST BLOOD SUGAR 4 TIMES A DAY active Not Available Not Available Not Available Lantus Solostar U-100 Insulin 100 unit/mL (3 mL) subcutaneous pen INJECT 70 UNITS QC EVERY MORNING active Not Available Not Available No t Available Humalog KwikPen (U-100) Insulin 100 unit/mL subcutaneous INJECT 4 TO 12 UNITS SUBCUTANEOU SLY BEFORE MEALS PER SLIDING SCALE active Not Available Not Available No t Available Fiber Laxative (methylcellu lose) 500 mg tablet TAKE 1 TABLET BY MOUTH TWICE DAILY active Not Available Not Available No t Available Vitamin D3 50 mcg (2,000 unit) capsule TAKE 1 CAPSULE BY MOUTH EVERY MORNING active Not Available Not Available No t Available UltiCare Pen Needle 32 gauge x USE DIRECTED TO INJECT DAILY active Not Available Not Available No t Available TRUEplus Lancets 33 gauge USE TO TEST BLOOD SUGAR 4-6 TIMES DAILY active Not Available Not Available No t Available Linzess 145 mcg capsule TAKE 1 CAPSULE BY MOUTH ONCE DAILY ON ON AN EMPTY STOMACH 30 MINUTES BEFORE MEALS active Not Available Not Available No t Available Trulicity 1.5 mg/0.5 mL subcutaneous pen injector INJECT ONE PEN (=1.5MG) SUBCUTANEOU SLY ONCE A WEEK DIRECTED active Not Available Not Available No t Available Tresiba FlexTouch U-200 insulin 200 unit/mL (3 mL) subcutaneous pen INJECT 85 UNITS SUBCUTANEOU SLY ONCE DAILY active Not Available Not Available No t Available Tresiba FlexTouch U-100 insulin 100 unit/mL (3 mL) subcutaneous pen INJECT 80 UNITS SUBCUTANEOU SLY DAILY DIRECTED active Not Available Not Available Not Available FreeStyle Khalif 2 Sensor kit USE TO TEST BLOOD SUGAR THREE TIMES DAILY AND NEEDED active Not Available Not Available No t Available FreeStyle Khalif 2 [place] USE TO TEST BLOOD SUGAR THREE TIMES DAILY AND NEEDED active Not Available Not Available No t Available Vitals Date Recorded Body weight Respiratory rate Heart rate Body height Body temperature Oxygen saturation Oxygen saturation in Arterial blood by Pulse oximetry Systolic blood pressure Diastolic blood pressure Provider Name and Address Organization Details Last Updated DateTime 3 34180.6 4 g 16 /min 94 /min 162.56 cm 98 [degF] 95 % 95 % 138 mm[Hg] 83 mm[Hg] Not Available [facility] 3 12:51:48 Date Recorded Body temperature Heart rate Oxygen saturation Oxygen saturation in Arterial blood by Pulse oximetry Respiratory rate Heart rate Body temperature Oxygen saturation Oxygen saturation in Arterial blood by Pulse oximetry Respiratory rate Systolic blood pressure Diastolic blood pressure Systolic blood pressure Diastolic blood pressure Provider Name and Address Organization Details Last Updated DateTime 3 98 [degF] 87 /min 98 % 98 % 16 /min 87 /min 98 [degF] 98 % 98 % 16 /min 148 mm[Hg] 82 mm[Hg] 148 mm[Hg] 82 mm[Hg] Not Available [facility] 3 12:02:20 Date Recorded Body weight Provider Name an d Address Organization Details Last Updated DateTime 10/18/2022 02393.22 g Kristy Acosta [address] [place] [address],[address], [place], [address], [facility] [employer] 10/18/2022 23:07:43 Date Recorded Respiratory rate Body temperature Heart rate Body weight Oxygen saturation Oxygen saturation in Arterial blood by Pulse oximetry Body height Body temperature Body weight Heart rate Respiratory rate Body height Oxygen saturation Oxygen saturation in Arterial blood by Pulse oximetry Systolic blood pressure Diastolic blood pressure Systolic blood pressure Diastolic blood pressure Provider Name and Address Organization Details Last Updated DateTime 3 18 /min 98.6 [degF] 100 /min 81502.8 g 98 % 98 % 157.48 cm 98.6 [degF] 92360.8 g 100 /min 18 /min 157.48 cm 98 % 98 % 135 mm[Hg] 87 mm[Hg] 135 mm[Hg] 87 mm[Hg] Not Available [facility] 3 13:15:40 Social History None recorded. Functional Status None recorded. Mental Status None recorded. Family History Nothing Reported. Medical History No medical history recorded. Gynecological HistoryNo gynecological history recorded. Obstetrics History GPAL:G 0 P 0 0 0 0 Past Encounters Encounter ID Performer Location Encounter Start Date Encounter Closed Date Diagnosis/Indication Diagnosis SNOMED-CT Code Diagnosis ICD10 Code [id number] Ale Mendoza MD [facility] [employer] [address] [place] [phone] 10/18/2022 11:17:31 10/21/2022 09:40:55 Gastroenteritis 28271068 K52.9 [id number] Ale Mendoza MD [facility] [employer] [address] [place] [phone] 12/11/2022 11:50:55 12/13/2022 09:41:45 Abdominal pain 13331563 R10.9 [id number] Ale Mendoza MD [facility] [employer] [address] [place] [phone] 05/06/2023 12:51:33 05/07/2023 11:54:31 Abdominal pain 56140426 R10.9 Health Concerns Section Related Observation LastModified by Organization Detai ls LastModified Time None Recorded Concern Status LastModified by Organization Details LastModified Time None Recorded Advance Directives Directive None Recorded Payers Encounter Date Sequence Insurance Name Policy Number Policy Javier Covered Member ID Javier Member ID Guarantor Name 10/18/2022 1 [facility] - DOS PRIOR TO 2022 - DUAL ELIGIBLE (MEDICARE REPLACEMENT/ADV ANTAGE - HMO) Jacki Baker [id number] Jacki Samuel 12/11/2022 1 [facility] - DOS PRIOR TO 2022 - DUAL ELIGIBLE (MEDICARE REPLACEMENT/ADV ANTAGE - HMO) Jacki Baker [id number] Jacki Samuel 05/06/2023 1 [facility] - DOS ON OR AFTER 2022 - DUAL ELIGIBLE - ASSISTED OPTIONS AND ONE CARE (MEDICARE REPLACEMENT/ADV ANTAGE - HMO) Jacki Baker [id number] Jacki Samuel Notes Date Note Type Note Provider Name and Address Organization Details Recorded Time 10/18/2022 text/html HPI: MULTIPLE ALLERGIES; ASA, KACI INHIBITORS, OMEPRAZOLE, PCN, TRIMETHOPRIM, SULFAMETHOXAZOLE, SUMATRIPTAN. Patient with abdominal pain above umbilicus. GERD symptoms, vomiting clear fluid last yesterday. Reports distension of abdomen with last BM 2 days prior. Patient has not been taking Omeprazole as listed on current RX list. Identified as allergy. ..................... ..................... ..................... ..................... ..................... ..................... ............... CRC Nursing Assessment: Comments: CRC RN DID NOT NEED FURTHER INFO ..................... ..................... ..................... ..................... ..................... ..................... ............... Business Services Representative Note From Elias Washington: PT c/o n/v/d x2 weeks, states that it? s a ? probable gastroenteritis episode.? Pt notes 10/ abd pain. B/s normal pop/click/gurgles. Pt notes poor I/O. Pt notes recent BM yesterday, and vomiting x3 yesterday. Pt stopped taking her OTC meds (nexium and peptobismol) to self diagnose. Pt re-educated on proper med use, BRAT diet for flare ups, proper hydration and when to call 911 (cp, sob, clots, blood in stool/vomit). 1L NS ordered and given 15mg Toradol ordered and given Business Services Representative Allergies: Aspirin, Omeprazole, Penicillin ..................... ..................... ..................... ..................... ..................... ..................... ............... 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 above. Pat reports 3bm - watery yesterday- none since and vomited X 2 - 4 days ago- none since but has been nauseated on and off- none currently. She denies hematemesis/ melena or hematochezia. She denies: fever/ chills/ cough / sob/ CP/palpitations/ sore throat/uti s/s//or any light headedness/ dizziness/ syncope. She describes pain as sharp/ burning/ cramps- waxes and wanes- feels like previous GI. Pat has not been taking her peptobismol or omeprazole- does not know why. Ate strawberries this am which gave her heartburn. She feels gassy- SHe reports her abd gets bloated with these spells. Ale Mendoza MD [address] [facility],[address], [place], [address], [employer] 10/18/2022 23:36:31 12/11/2022 text/html HPI: Call to Jacki Baker, reports being prescribed 2 different abx. Per pt started both abx on Friday. Per pt no diarrhea today. Per pt last episode of diarrhea was yesterday. No blood or mucus in stool. Pt has had 2 episode of vomiting today. No blood. Per pt also having abdominal pain. Pt unsure if related to abx or to abdominal pain. Pt advised to seek ER, pt declines wishes to have instED come out to home. Referral summited. ..................... ..................... ..................... ..................... ..................... ..................... ............... CRC Nursing Assessment: Comments: CRC RN DID NOT NEED FURTHER INFO LJ ..................... ..................... ..................... ..................... ..................... ..................... ............... Business Services Representative Note From Steve Lozoya: Pt answers door, walks with steady even gait. Pt caox3 complains of nausea vomiting and abdominal pain since yesterday when she started taking cipro and flagyl for an unknown condition. Pt states she went to meet her new doctor yesterday and left with an unclear understanding of what her condition is and above listed antibiotics. Pt states she vomited three times yesterday and once this morning. Pt states she has had diarrhea x 2 days Pt states she went to [facility] to treat her left side flank pain she has had x months. Pt denies any other pain or complaints, denies chest pain, dizziness or any other Pt pink warm and dry, abdomen soft, tender on left side. No mass palpated. Positive CVA tenderness left side only Good skin turgor and cap refill. orders NS 1L IV, zofran 4mg IV ? 2 BMP to [facility] [place]. Pt advised by [facility] to stop taking antibiotics until she can talk to her PCP, eat only BRAT diet (explained) and drink clear liquids. Red flags and pt education discussed. Business Services Representative Allergies: Aspirin, Omeprazole, Penicillin, Trimethoprim-Sulfamet hoxazole ..................... ..................... ..................... ..................... ..................... ..................... ............... Disposition: Fulfilled SEGMD: Above except patient is allergic to PCN / Bactrim and gets cough w/ KACI inhibitors- she denies allergies to omeprazole and ASA. Heike has no known hx of colitis or diverticulitis; I do not have access to the lab results drawn at her new PCP's this week but given Cipro and Flagyl RX it is likely they were presumptively treating diverticular disease or colitis. Heike has had left sided abd pain for awhile, however the patient is not improving on antibiotics/ she is worse the vomiting and diarrhea started s/p the antibiotics. She denies melena/ hematochezia or hematemesis. She reports eating small amt raw fruit yesterday and has been unable to tolerate liquids or solids today. She denies UTi s/s Ale Mendoza MD [address] [facility],[address], [place], [address], [employer] 12/11/2022 17:10:18 05/06/2023 text/html HPI: Vomiting and wants to make sure she is not dehydrated>has been experiencing symptoms for about 3 days. ..................... ..................... ..................... ..................... ..................... ..................... ............... CRC Nursing Assessment: Comments: Requestor unable to give additional details. ..................... ..................... ..................... ..................... ..................... ..................... ............... Business Services Representative Note From Silvano Garcia: Pt reports n/v/d for three days. Pt denies CP, SOB, fevers, chills, hematochezia, hematemesis. Pt is alert, NAD. VSS. Afebrile. Neuro exam and gait normal. Lungs CTA. ABD is distended and tender in epigastric region. + BS x4. No LLE. Rapid covid and flu negative. POC BMP lactate 36.2. [facility] contacted and advised pt be seen in ED. 911 initiated. Normal saline 500 mg IV and Ondansetron 4 mg IVP administered en route to [place] [facility]. [facility] swimming professor maintained all pt care until transfer of care to [facility]. [facility] Lab Orders: BMP, serum or plasma: Performed rapid SARS CoV 2 Ag, QL IA, respiratory specimen: Performed rapid flu (A+B): Performed ..................... ..................... ..................... ..................... ..................... ..................... ............... Disposition: Fulfilled Ale Mendoza MD [address] [facility],[address], [place], [address], [employer] 05/07/2023 10:32:09 OBGyn Episode No OBEpisode recorded.
== END 2024-07-29 12:29 | disposition home or self-care (01) ==
LOC: HO.MAMMO 12:28
PROVIDERS: PCP General Practice; Visit Provider General Practice
DX: R92.1 Mammographic calcification found on diagnostic imaging of breast (principal)
CPT/HCPCS: 77062; 77065

== ENCOUNTER → 2024-07-29 13:30 | Outpatient (BNV) | payer OTHER, SELFPAY | PROVIDERS: PCP General Practice; Visit Provider Internal Medicine | DX: R92.1 Mammographic calcification found on diagnostic imaging of breast (principal) | CPT/HCPCS: 77065 ==

== ENCOUNTER 2024-10-01 08:46 | Outpatient (REF) | payer OTHER, SELFPAY ==
--- OUTSIDE RECORDS SUMMARY | 2024-10-01 09:08 | XMS_ITS | Encounter Summary ---
Author Organization [employer] Address [address] [place] [address] Care Team Providers Care Venture Capital Analyst Name Role Phone Karen Guthrie MD Primary Care Provider Encounter Details Date Type Department Care Team ([facility] st Contact Info) Description 09/23/2024 Orders Only [facility] MEDICINE [address] [place], [place] [phone] Karen Guthrie MD [address] [place], [place] [phone] Social History Tobacco Use Types Packs/Day Years Used Date Smoking Tobacco: Never Smokeless Tobacco: Never Alcohol Use Standard Drinks/Week Comments Never 0 (1 standard drink = 0.6 oz pur e alcohol) Depression Answer Date Recorded Patient Health Questionnaire-9 Score 14 12/19/2023 Patient Health Questionnaire-9 Score 14 12/19/2023 Last PHQ-9: Questionnaire Data Not on file 0 12/19/2023 Housing Stability Answer Date Recorded What is your housing situation today? I have ipng dumont 12/11/[address] you li ve. Do you have problems with any of the following? None of the above 12/11/2023 Food Insecurity Answer Date Recorded Within the past 12 months, y ou worried that your food would run out before you got money to buy more: Never True 12/11/2023 Within the past 12 months,th e food you bought just didn't last and you didn't have enough money to get more: Never True Transportation Answer Date Recorded In the past 12 months, has l ack of transportation kept you from medical appts, meetings, work or from getting things needed for daily living? No 12/11/2023 Utilities Answer Date Recorded In the past 12 months, has t he electric, gas, oil or water company threatened to shut off services in your home? No 12/11/2023 Depression Answer Date Recorded Patient Health Questionnaire-2 Score 5 12/19/2023 Comments Unknown Sex and Gender Information Value Date Recorded Sex Assigned at Female 06/24/2022 10:14 AM EDT Legal Sex Female 10:14 AM EDT Gender Identity Female 06/24/2022 10:14 AM EDT Sexual Orientation Choose not to disclose 2021 10:14 AM EDT documented as of this encounter Plan of Treatment Upcoming Encounters Date Type Department Care Team (Late st Contact Info) Description 11/05/2024 11:00 AM EDT Office Visit [facility] MEDICINE [address] [place] [address] Karen Guthrie MD [address] [place] [address] 01/21/2025 10:00 AM EDT Office Visit [facility] OPTOMETRY [address] [place] [address] Robert, Yocasta, OD [address] [place] [address] documented as of this encounter Visit Diagnoses Not on filedocumented in this encounter Additional Health Concerns Assessment Noted Time PHQ-9 Depression Total Score: 14 024 1:04 PM EDT documented as of this encounter Care Teams Venture Capital Analyst Relationship Specialty Start Date End Date Karen Guthrie MD [address] [place] [id number] PCP - General Family Medicine 07/15/22 documented as of this encounter
--- OUTSIDE RECORDS SUMMARY | 2024-10-01 09:08 | XMS_ITS | Encounter Summary ---
Author Organization [employer] [facility] Address [address] [facility] [address] [place] [address] Care Team Providers Care Metropolitan Editor Name Role Phone Karen Guthrie MD Primary Care Provider [phone] Encounter Details Date Type Department Care Team (Late st Contact Info) Description 04/18/2023 Orders Only [facility] MEDICINE [address] [place], [place] [phone] Karen Guthrie MD [address] [place], [place] [phone] Social History Tobacco Use Types Packs/Day Years Used Date Smoking Tobacco: Never Smokeless Tobacco: Never Alcohol Use Standard Drinks/Week Comments Never 0 (1 standard drink = 0.6 oz pur e alcohol) Depression Answer Date Recorded Patient Health Questionnaire-2 Score 2 12/04/2022 Comments Unknown Sex and Gender Information Value [...] Description 11/05/2024 11:00 AM EDT Office Visit [facility] MEDICINE [address] [place], [place] [phone] Karen Guthrie MD [address] [place], [place] [phone] 01/21/2025 10:00 AM EDT Office Visit [facility] OPTOMETRY [address] [place], [place] [phone] Yocasta Jones, OD [address] [place] [address] documented as of this encounter Visit Diagnoses Not on filedocumented in this encounter Care Teams Metropolitan Editor Relationship Specialty Start Date End Date Karen Guthrie MD [address] [place], [place] [phone] PCP - General Family Medicine 07/15/22 documented as of this encounter
--- OUTSIDE RECORDS SUMMARY | 2024-10-01 09:08 | XMS_ITS | Encounter Summary ---
Author Organization [employer] Address [address] [facility] [address] [place] [address] Care Team Providers Care Automatic Tire Tester Name Role Phone Karen Guthrie MD Primary Care Provider [phone] Reason for Referral * Imaging (STAT) - Closed Specialty Diagnoses / Procedures Referred By Contac t Referred To Contact Diagnoses LUQ pain Epigastric pain Procedures CT Abdomen Pelvis w/ Contrast Karen Guthrie MD [address] [place] [address] Phone: tel: fax: [facility] [address] [place] [address] Phone: tel: fax: Referral ID Status Reason Start Date Expiration Date Visits Re quested Visits Authorized [id number] Closed 01/02/2023 01/02/2024 1 1 Encounter Details Date Type Department Care Team (Late st Contact Info) Description 01/02/2023 Orders Only [facility] MEDICINE [address] [place], [place] [phone] Karen Guthrie MD [address] [place] [address] LUQ pain (Primary Dx); Epigastric pain Social History Tobacco Use Types Packs/Day Years [...] not to disclose 2021 10:14 AM EDT COVID-19 Exposure Response Date Recorded In the last 10 days, have yo u been in contact with someone who was confirmed or suspected to have Coronavirus/COVID-19? No / Unsure 12/04/2022 2:00 PM EDT documented as of this encounter Plan of Treatment Upcoming Encounters Date Type Department Care Team (Late st Contact Info) Description 11/05/2024 11:00 AM EDT Office Visit [facility] MEDICINE [address] [place] [address] Karen Guthrie MD [address] [place] [address] 01/21/2025 10:00 AM EDT Office Visit [facility] OPTOMETRY [address] [place] [address] Robert, Yocasta, OD [address] [place] [address] Scheduled Orders Name Type Priority Associated Diagnoses Orde r Schedule CT Abdomen Pelvis w/ Contrast Imaging STAT LUQ pain Epigastric pain Expected: 01/02/2023, Expires: 01/03/2024 documented as of this encounter Visit Diagnoses Diagnosis LUQ pain- Primary Abdominal pain, left upper quadrant Epigastric pain Abdominal pain, epigastric documented in this encounter Care Teams Automatic Tire Tester Relationship Specialty Start Date End Date Karen Guthrie MD [address] [place] [phone] PCP - General Family Medicine 07/15/22 documented as of this encounter
--- OUTSIDE RECORDS SUMMARY | 2024-10-01 09:08 | XMS_ITS | Encounter Summary ---
Author Organization [employer] Address [address] [place] [address] Care Team Providers Care Kai Whakaruruhau Name Role Phone Karen Guthrie MD Primary Care Provider [phone] Reason for Visit * Reason Onset Date Comments recall 09/10/2024 Encounter Details Date Type Department Care Team ([facility] st Contact Info) Description 09/10/2024 Telephone [facility] MEDICINE [address] [place] [address] Morena Sandoval MA recall Social History Tobacco Use Types Packs/Day Years [...] is your housing situation today? I have ping dumont 12/11/[address] you [...] AM EDT documented as of this encounter Miscellaneous Notes * Telephone Encounter - Morena Sandoval MA - 09/10/2024 2:52 PM EST T/C placed spoke with pt, pt agreed to come in on 11/05/24 at 11am documented in this encounter Plan of Treatment Upcoming Encounters Date Type Department Care Team (Late st Contact Info) Description 11/05/2024 11:00 AM EDT Office Visit [facility] MEDICINE [address] [place] [address] Karen Guthrie MD [address] [place] [address] 01/21/2025 10:00 AM EDT Office Visit [facility] OPTOMETRY [address] [place] [address] Robert, Yocasta, OD [address] [place] [address] documented as of this encounter Visit Diagnoses Not on filedocumented in this encounter Additional Health Concerns Assessment Noted Time PHQ-9 Depression Total Score: 14 024 1:04 PM EDT documented as of this encounter Care Teams Kai Whakaruruhau Relationship Specialty Start Date End Date Karen Guthrie MD [address] [place] [address] PCP - General Family Medicine 07/15/22 documented as of this encounter
--- OUTSIDE RECORDS SUMMARY | 2024-10-01 09:08 | XMS_ITS | Data Portability ---
Author Organization [employer], [place] in - [facility] Address [address] [place] [address] Care Team Providers Care Rake Operator Name Role Phone [facility] Referring Provider YASEMIN LAMBERT Primary Care Provider [phone] Assessment Encounter Date Assessment Date Assessment LastModified by Organization Details LastModified Time 10/18/2022 10/18/2022 I provided real -time medical direction via phone for this encounter, and was available for additional phone based assistance as needed. I have reviewed and agree with the Assessment and Plan as documented by the Biller. Patient given the opportunity to ask questions. [email or web address] Not available 10/18/2022 23:13:30 12/11/2022 12/11/2022 I provided real -time medical direction via phone for this encounter, and was available for additional phone based assistance as needed. I have reviewed and agree with the Assessment and Plan as documented by the Biller. Patient given the opportunity to ask questions. Advised if develops CP/severe SOB/ increased abd pain/uncontrolle d n/v/d or black/bloody emesis or stool/ AMS/ syncope/ hi fever to call 911- verbalized understanding of instructions [email or web address] Not available 12/11/2022 16:54:21 05/06/2023 05/06/2023 I provided real -time medical direction via phone for this encounter, and was available for additional phone based assistance as needed. I have reviewed the Assessment and Plan as documented by the Biller. Patient given the opportunity to ask questions. [email or web address] Not available 05/07/2023 10:28:45 Plan of Treatment Reminders Order Date Submit Date Provider Last Modified By Organization Details Last Modified Time Details Appointments None recorded. Lab urinalysis, dipstick 2022 023 [email or web address] 0 [facility], [address] [place] [address], [address], 3 23:34:46 BMP, serum or plasma 2022 023 [email or web address] 0 [facility], [address] [place] [address], [address], 3 23:34:46 BMP, serum or plasma 2022 023 [email or web address] 0 [facility], [address] [place] [address], [address], 3 17:09:27 BMP, serum or plasma 2022 023 [email or web address] 0 [facility], [address] [place] [address], [address], 3 10:28:26 rapid SARS CoV 2 Ag, QL IA, respiratory specimen 2022 023 [email or web address] 0 [facility], [address] [place] [address], [address], 3 10:28:26 rapid flu (A+B) 2022 023 [email or web address] 0 [facility], [address] [place] [address], [address], 3 10:28:26 Referral None recorded. Procedures None recorded. Surgeries None recorded. Imaging None recorded. Medication Orders sodium chloride 0.9 % intravenous solution 2022 023 [email or web address] 0 Not available 3 23:34:46 ondansetron 4 mg disintegrat ing tablet 2022 023 [facility], [address] [place] [address], [id number], 3 17:01:14 sodium chloride 0.9 % intravenous solution 2022 023 [email or web address] 0 [facility], [address] [place] [address], [id number], 3 17:09:27 ondansetron HCl (PF) 4 mg/2 mL injection solution [address] [facility], [address] [place] [address], [id number], 3 17:09:27 sodium chloride 0.9 % intravenous solution [address] [facility] [address] [facility], [address] [place] [address], [id number], 3 10:28:26 ondansetron HCl (PF) 4 mg/2 mL injection solution [address] [facility] [address] [facility], [address] [place] [address], [id number], 3 10:28:26 Patient TargetsNo targets recorded. Patient InstructionsNo instructions recorded. Reason for Referral None Reported. Results Created Date Observation Date Name Description Value Unit Range Abnormal Flag Note LastModifiedBy Organization Detail LastModifiedTime 10/18/1910/18/2022 urina lysis , dipst ick Leukocytes neg Not Available [facility] [address] [place] [address], [address], 10/18/2022 23:20:01 10/18/19 23 10/18/2022 urina lysis , dipst ick Nitrite negati ve Not Available Main - [facility] [address], [address], 10/18/2022 23:20:01 10/18/19 23 10/18/2022 urina lysis , dipst ick Urobilinogen neg Not Available [facility] [address] [place] [address], [address], 10/18/2022 23:20:01 10/18/19 23 10/18/2022 urina lysis , dipst ick Protein neg Not Available Main - [facility] m[facility] [address] [place] [address], [address], 10/18/2022 23:20:01 10/18/19 23 10/18/2022 urina lysis , dipst ick pH 6.5 Not Available Main - [facility] [address], [address], 10/18/2022 23:20:01 10/18/19 23 10/18/2022 urina lysis , dipst ick Blood neg Not Available [facility] - [facility] [address] [place] [address], [address], 10/18/2022 23:20:01 10/18/19 23 10/18/2022 urina lysis , dipst ick Specific Otho 1;025 Not Available [facility] [address] [place] [address], [address], 10/18/2022 23:20:01 10/18/19 23 10/18/2022 urina lysis , dipst ick Ketone trace Not Available Main - [facility] [address], [address], 10/18/2022 23:20:01 10/18/19 23 10/18/2022 urina lysis , dipst ick Bilirubin trace Not Available Main - [facility] [address] [place] [address], [address], 10/18/2022 23:20:01 10/18/19 23 10/18/2022 urina lysis , dipst ick Glucose negati ve Not Available [facility] - [facility] [address] [place] [address], [address], 10/18/2022 23:20:01 10/18/19 23 10/18/2022 urina lysis , dipst ick Appearance clear Not Available [facility] [address] [place] [address], [address], 10/18/2022 23:20:01 10/18/19 23 10/18/2022 urina lysis , dipst ick Color yelllo w Not Available [facility] [address] [place] [address], [address], 10/18/2022 23:20:01 10/18/19 23 10/18/2022 BMP, serum or plasm a BUN 8 Not Available Main - [facility] [address], [address], 10/18/2022 23:20:03 10/18/19 23 10/18/2022 BMP, serum or plasm a Ca I az = 1.21 Not Available [facility] [address] [place] [address], [address], 10/18/2022 23:20:03 10/18/19 23 10/18/2022 BMP, serum or plasm a CI- 102 Not Available Main - [facility] [address], [address], 10/18/2022 23:20:03 10/18/19 23 10/18/2022 BMP, serum or plasm a CRE 0.5 Not Available Main - [facility] [address], [address], 10/18/2022 23:20:03 10/18/19 23 10/18/2022 BMP, serum or plasm a GLU 100 Not Available Main - [facility] [address], [address], 10/18/2022 23:20:03 10/18/19 23 10/18/2022 BMP, serum or plasm a K+ 4 Not Available Main - [facility] [address], [address], 10/18/2022 23:20:03 10/18/19 23 10/18/2022 BMP, serum or plasm a Na+ 138 Not Available Main - [facility] [address], [address], 10/18/2022 23:20:03 10/18/1910/18/2022 BMP, serum or plasm a tCO2 25 Not Available Main - [facility] [address], [address], 10/18/2022 23:20:03 12/12/19 23 12/11/2022 BMP, serum or plasm a BUN 11 Not Available Main - [facility] [address], [address], 12/11/2022 17:06:59 12/12/19 23 12/11/2022 BMP, serum or plasm a Ca I az 1.26 Not Available Main - [facility] [address], [address], 12/11/2022 17:06:59 12/12/19 23 12/11/2022 BMP, serum or plasm a CI- 106 Not Available Main - [facility] [address], [address], 12/11/2022 17:06:59 12/12/19 23 12/11/2022 BMP, serum or plasm a CRE 0.6 Not Available Main - [facility] [address], [address], 12/11/2022 17:06:59 12/12/19 23 12/11/2022 BMP, serum or plasm a GLU 146 Not Available Main - [facility] [address], [address], 12/11/2022 17:06:59 12/12/19 23 12/11/2022 BMP, serum or plasm a K+ 3.9 Not Available Main - [facility] [address], [address], 12/11/2022 17:06:59 12/12/19 23 12/11/2022 BMP, serum or plasm a Na+ 140 Not Available Main - [facility] [address], [address], 12/11/2022 17:06:59 12/12/1912/11/2022 BMP, serum or plasm a tCO2 19 Not Available Main - [facility] [address], [address], 12/11/2022 17:06:59 05/06/2005/06/2023 rapid flu (A+B) Flu negati ve Not Available [facility] [address] [place] [address], [address], 05/06/2023 12:56:53 05/06/2005/06/2023 rapid SARS CoV 2 Ag, QL IA, respi rator y speci men rapid SARS CoV 2 Ag, QL IA, respiratory specimen negati ve Not Available [facility] [address] [place] [address], [address], 05/06/2023 12:56:51 05/07/2005/07/2023 BMP, serum or plasm a BUN 14 Not Available Main - [facility] [address], [address], 05/06/2023 12:56:14 05/07/2005/07/2023 BMP, serum or plasm a Ca I AZ 5(nl) Not Available [facility] - [facility] [address] [place] [address], [address], 05/06/2023 12:56:14 05/07/2005/07/2023 BMP, serum or plasm a CI- 103 Not Available Main - [facility] [address], [address], 05/06/2023 12:56:14 05/07/2005/07/2023 BMP, serum or plasm a CRE 0.54 Not Available Main - [facility] [address], [address], 05/06/2023 12:56:14 05/07/20 23 05/07/2023 BMP, serum or plasm a GLU 163 Not Available Main - [facility] [address], [address], 05/06/2023 12:56:14 05/07/20 23 05/07/2023 BMP, serum or plasm a K+ 4.5 Not Available Main - [facility] [address], [address], 05/06/2023 12:56:14 05/07/20 23 05/07/2023 BMP, serum or plasm a Na+ 139 Not Available Main - [facility] [address], [address], 05/06/2023 12:56:14 05/07/20 23 05/07/2023 BMP, serum or plasm a tCO2 23 Not Available Main - [facility] [address], [address], 05/06/2023 12:56:14 Result Notes None recorded. Medical Equipment None Reported. Allergies Allergen ID Allergen Name Allergen Category Reaction Reaction Severity Criticality Documentation Date Start Date Code Code System Note Provider Name and Address Organization Details Recorded Time 1956 Product containin g angiotens in-conver ting enzyme inhibitor (product) medicatio n cough Not available Not available 10/18/2022 30336 009 SNOMED Ale Mendoza MD [address] [place] [address],[address], [place], [address], [employer] 3 22:57:07 1958 Bactrim medicatio n Not available Not available Not available 10/18/2022 18559 9 RxNorm Ale Mendoza MD [address] [place] [address],[address], [place], [address], [employer] 3 22:57:21 1959 Product containin g penicilli n and antibioti c (product) medicatio n Not available Not available Not available 10/18/2022 84098 05 SNOMED Not Available [facility] 4 03:47:40 8911 aspirin medicatio n Not available Not available Not available 06/22/2024 1191 RxNorm Not Available [facility] 4 03:47:40 8912 omeprazol e medicatio n Not available Not available Not available 06/22/2024 7646 RxNorm Not Available [facility] 4 03:47:40 Medications Name Sig Start Date Stop [...] Available [employer]iCare Pen Needle 32 gauge x 5/32 USE DIRECTED TO INJECT DAILY active Not [...] Available No t Available [employer]if 2 [place] USE TO TEST BLOOD SUGAR THREE TIMES DAILY AND NEEDED active Not Available Not Available No t Available Vitals Date Recorded Body weight Respiratory rate Heart rate Body height Body temperature Oxygen saturation Oxygen saturation in Arterial blood by Pulse oximetry Systolic blood pressure Diastolic blood pressure Provider Name and Address Organization Details Last Updated DateTime 3 41483.6 4 g 16 /min 94 /min 162.56 [...] mm[Hg] 148 mm[Hg] 82 mm[Hg] Not Available [facility] 3 12:02:20 Date Recorded Body weight Provider Name an d Address Organization Details Last Updated DateTime 10/18/2022 58676.22 g Kristy Acosta [address] [place] [address],[address], [place], [address], [place] [facility] [employer] 10/18/2022 23:07:43 Date Recorded Respiratory rate Body [...] 3 18 /min 98.6 [degF] 100 /min 69186.8 g 98 % 98 % 157.48 cm 98.6 [degF] 62987.8 g 100 /min 18 /min 157.48 cm 98 % 98 % 135 mm[Hg] 87 mm[Hg] 135 mm[Hg] 87 mm[Hg] Not Available [facility] 3 13:15:40 Social History None recorded. Functional Status None recorded. Mental Status None recorded. Family History Nothing Reported. Medical History No medical history recorded. Gynecological HistoryNo gynecological history recorded. Obstetrics History GPAL:G 0 P 0 0 0 0 Past Encounters Encounter ID Performer Location Encounter Start Date Encounter Closed Date Diagnosis/Indication Diagnosis SNOMED-CT Code Diagnosis ICD10 Code Diagnosis Note [id number] [facility] [address] [place] [phone] 10/18/2022 11:17:31 10/21/2022 09:40:55 Gastroenteritis 48612801 K52.9 w/ GERD- advised BRAT/ bland diet- no raw fruits and vegetables -stay hydrated with SF clears/PAt took 1 dose each of her omeprazole and pepto bismol at my request- hydrated for comfort but labs did not indicate serious dehydratio n. Medic did not have any iv pepcid. Advised to continue her omeprazole / peptobismo l as directed- to f/u with pcp on Friday; Advised if develops marked increase in abd distention / pain/ fever/ black or bloody emesis oNSaids. She verbalized understand ing. Pat felt a lot better after iv f/ meds [id number] Ale Mendoza MD Main - [facility] [address] [place] [phone] 12/11/2022 11:50:55 12/13/2022 09:41:45 Abdominal pain 81336559 R10.9 w/ n/v/d- advised to hold the antibiotic s and to call her pcp in the am since they are making her worse- if diarrhea hilton s not snow consider c diff work up. Labs are reassuring - d/w patient. Advised clear liquid diet today then BRAT(medic reviewed w/ patient) diet- advised no other raw fruits/ veggies and no dairy except yogurt w/ active cultures- rehydrated w/ NS- required 2 doses zofran to control nausea. Advised I recommend CT abd but she did not wish to go to the ED- advised close f/u with pcp tomorrow and reviewed red flags( above) to have lo threshold for going to the ED [id number] Ale Mendoza MD Main - [facility] [address] [place] [phone] 05/06/2023 12:51:33 05/07/2023 11:54:31 Abdominal pain 47754168 R10.9 w/ n/v/d- significan t abd distention and very elevated lactate- although remainder labs nl/ vss - concern for SBO/ risk for perforatio n/ intra-abdo bhanu infection/ early sepsis- advised needs imaging and further emergent eval / treatment in the ED- patient agreeable- report called to [facility]. [facility] medic arrived for EMS so [facility] medic rode in to continue IVF en route to the ER. Health Concerns Section Related Observation LastModified by Organization Detai ls LastModified Time None Recorded Concern Status LastModified by Organization Details LastModified Time None Recorded Advance Directives Directive None Recorded Payers Encounter Date Sequence Insurance Name Policy Number Policy Javier Covered Member ID Javier Member ID Guarantor Name 10/18/[address] [facility] - DOS PRIOR TO 2022 - DUAL ELIGIBLE (MEDICARE REPLACEMENT/ADV ANTAGE - HMO) Jacki Baker [id number] Jacki Baker 12/11/[address] [facility] - DOS PRIOR TO 2022 - DUAL ELIGIBLE (MEDICARE REPLACEMENT/ADV ANTAGE - HMO) Jacki Baker [id number] Jacki Baker 05/06/[address] [facility] - DOS ON OR AFTER 2022 - DUAL ELIGIBLE - [employer] AND ONE [employer] (MEDICARE REPLACEMENT/ADV ANTAGE - HMO) Jacki Baker [id number] Jacki Baker Notes Date Note Type Note Provider Name [...] ..................... ..................... ..................... ..................... ..................... ..................... ............... Biller Note From Hauglie, Elias: PT c/o n/v/d x2 weeks, states that it? s a ? probable gastroenteritis episode.? Pt notes 10/10 abd pain. B/s normal pop/click/gurgles. Pt notes [...] and given 15mg Toradol ordered and given Biller Allergies: Aspirin, Omeprazole, Penicillin ..................... ..................... ..................... ..................... ..................... ..................... ............... Disposition: FulfilledSEGMD: Heike has hx recurrent gastroenteritis w/ n/v/d and [...] waxes and wanes- feels like previous GI. Heike has not been taking her peptobismol or omeprazole- does not know why. Ate strawberries this am which gave her heartburn. She feels gassy- SHe reports her abd gets bloated with these spells. Ale Mendoza MD [address] [facility],[address], [place], [address], [facility] 10/18/2022 23:36:31 12/11/2022 text/html HPI: Call to [...] ..................... ..................... ..................... ..................... ..................... ..................... ............... Biller Note From Steve Lozoya: Pt answers door, [...] zofran 4mg IV ? 2 BMP to [facility] via portal. Pt advised by [facility] to stop taking antibiotics until she can talk to her PCP, eat only BRAT diet (explained) and drink clear liquids. Red flags and pt education discussed. Biller Allergies: Aspirin, Omeprazole, Penicillin, Trimethoprim-Sulfamet hoxazole ..................... [...] denies UTi s/s Ale Mendoza MD [address] [facility],[address], [place], [address], [employer] 12/11/2022 17:10:18 05/06/2023 text/html HPI: Vomiting and wants to make sure she is not dehydrated>has been experiencing symptoms for about 3 days. ..................... ..................... ..................... ..................... ..................... ..................... ............... [facility] Nursing Assessment: Comments: Requestor unable to give additional details. ..................... ..................... ..................... ..................... ..................... ..................... ............... Biller Note From Silvano Garcia: Pt reports n/v/d for three days. Pt denies CP, SOB, fevers, chills, hematochezia, hematemesis. Pt is alert, NAD. VSS. Afebrile. Neuro exam and gait normal. Lungs CTA. ABD is distended and tender in epigastric region. + BS x4. No LLE. Rapid covid and flu negative. POC BMP lactate 36.2. [facility] contacted and advised pt be seen in ED. 911 initiated. Normal saline 500 mg IV and Ondansetron 4 mg IVP administered en route to [facility]. [facility] retail sales representative maintained all pt care until transfer of care to [facility]. [facility] Lab Orders: BMP, serum or plasma: Performed rapid SARS CoV 2 Ag, QL IA, respiratory specimen: Performed rapid flu (A+B): Performed ..................... ..................... ..................... ..................... ..................... ..................... ............... Disposition: Fulfilled Ale Mendoza MD [address] [place] [address],[address], [place], [address], [employer] 05/07/2023 10:32:09 OBGyn Episode No OBEpisode recorded.
--- OUTSIDE RECORDS SUMMARY | 2024-10-01 09:08 | XMS_ITS | Encounter Summary ---
Author Organization [employer] Address [address] [place] [address] Care Team Providers Care Interactive Digital Media Specialist Name Role Phone Karen Guthrie MD Primary Care Provider Reason for Visit * Reason Onset Date Comments Med Refill 09/22/2024 Encounter Details Date Type Department Care Team ([facility] st Contact Info) Description 09/22/2024 Refill [facility] [address] [place] [address] Karen Guthrie MD [address] [place] [address] Social History Tobacco Use Types Packs/Day Years [...] Description 11/05/2024 11:00 AM EDT Office Visit [facility] MEDICINE [address] [place] [address] Karen Guthrie MD [address] [place] [address] 01/21/2025 10:00 AM EDT Office Visit [facility] OPTOMETRY [address] [place], [place] [phone] Robert, Yocasta, OD [address] [place] [address] documented as of this encounter Visit Diagnoses Not on filedocumented in this encounter Additional Health Concerns Assessment Noted Time PHQ-9 Depression Total Score: 14 024 1:04 PM EDT documented as of this encounter Care Teams Interactive Digital Media Specialist Relationship Specialty Start Date End Date Karen Guthrie MD [address] [place], [place] [phone] PCP - General Family Medicine 07/15/22 documented as of this encounter
--- OUTSIDE RECORDS SUMMARY | 2024-10-01 09:08 | XMS_ITS | Encounter Summary ---
Author Organization [facility] Address [address] [place] [address] Care Team Providers Care Sorter/Assay Tech Name Role Phone Quang Vasques MD Primary Care Provider Karen Kang MD Primary Care Provider [phone] Encounter Details Date Type Department Care Team (Latest Contact Info) Description 09/04/2018 Abstract [facility] CONVERSIONS Dental, Provider, DDS Social History Tobacco Use Types Packs/Day Years Used Date Smoking Tobacco: Never Assessed Comments Unknown Sex and Gender Information Value [...] Description 11/05/2024 11:00 AM EDT Office Visit [facility] MEDICINE [address] [place] [address] Karen Guthrie MD [address] [place] [address] 01/21/2025 10:00 AM EDT Office Visit [facility] OPTOMETRY [address] [place] [address] Yocasta Jones, OD [address] [place] [address] documented as of this encounter Visit Diagnoses Not on filedocumented in this encounter Care Teams Sorter/Assay Tech Relationship Specialty Start Date End Date Quang Vasques MD PCP - General Family Medicine 02/15/20 07/14/22 Karen Guthrie MD [address] [place] [address] PCP - General Family Medicine 07/15/22 documented as of this encounter
--- OUTSIDE RECORDS SUMMARY | 2024-10-01 09:08 | XMS_ITS | Encounter Summary ---
Author Organization [employer] Address [address] [place] [address] Care Team Providers Care Press Clippings Cutter And Paster Name Role Phone Karen Guthrie MD Primary Care Provider [phone] Encounter Details Date Type Department Care Team ([facility] st Contact Info) Description 07/07/2024 Orders Only [facility] External Provider, [facility] Social History Tobacco Use Types Packs/Day Years [...] Description 11/05/2024 11:00 AM EDT Office Visit [facility] MEDICINE [address] [place] [address] Karen Guthrie MD [address] [place] [address] 01/21/2025 10:00 AM EDT Office Visit [facility] OPTOMETRY [address] [place] [address] Yocasta Jones, OD [address] [place] [address] documented as of this encounter Procedures Procedure Name Priority Date/Time Associated Diagnosis Comments US ABDOMEN GARG W ELASTOGRAPHY Routine 07/07/2024 9:41 AM EST documented in this encounter Results * US ABDOMEN GARG W ELASTOGRAPHY (07/07/2024 9:41 AM EST) Anatomical Region Laterality Modality Abdomen Ultrasound 07/07/2024 9:41 AM EST Narrative 09/03/2024 4:22 PM EST ? [facility] ?[address] ?[place] [address] ? Ultrasound Report ? Signed ? Patient: Baker,Jacki I ?MR#: [id number] ?? [id number] ? : 1955 ?Acct:[id number] ? Age/Sex: 68 / F ?ADM Date: 11/13/24 ? Loc: HO.US ? Attending Dr: Yuliya Clayton NP ? Ordering Physician: Yuliya Clayton NP ?? Date of Service: 07/07/24 ?? Procedure(s): US abdomen garg w elastography ?? Accession Number(s): [id number] ? cc: Karen Guthrie; Yuliya Clayton NP ? EXAMINATION: ?? US ABDOMEN LIMITED WITH LIVER ELASTOGRAPHY ? CLINICAL INFORMATION: ?? Fatty liver ? COMPARISON: ?? Ultrasound abdomen 11/24/2023 ? TECHNIQUE: ?? Real-time imaging of the abdominal viscera. Noninvasive ultrasound ?? liver fibrosis assessment is performed using [employer] point ?? quantification shear wave elastography (pSWE) with a 5 MHz transducer. ? Multiple elastography samples are obtained. ? FINDINGS: ? PANCREAS: The visualized pancreatic head and body are normal in ?? appearance. The remainder of the pancreas is obscured from ?? visualization by the overlying bowel gas. ? LIVER: The liver demonstrates normal size and contour but with ?? increased echogenicity. No focal lesion or intrahepatic biliary duct ?? dilatation. The right lobe measures 16.9 cm in length. ??The left lobe ?? measures 12.0 cm in length. ? Shear wave elastography provides a median stiffness of 2.35 m/s ?? (reference: ??normal median stiffness is 0.81 - 1.22 m/s). The ?? IQR/median stiffness to assess sampling precision is 0.08 (reference: ?? optimal IQR/median stiffness is under 0.3). ? GALLBLADDER: The gallbladder contains a small sludge ball but is ?? physiologically distended without evidence of stones, polyps, wall ?? thickening or pericholecystic fluid. ? COMMON BILE DUCT: Normal in caliber measuring 0.3 cm in diameter. ? RIGHT KIDNEY: No hydronephrosis. There is a mid renal cyst 4 mm ?? echogenic focus with twinkle artifact consistent with a nonobstructing ?? stone. No ??focal parenchymal lesions. ??The kidney measures 13 cm in ?? maximum dimension. ? FREE FLUID: None seen. ? US/US abdomen garg w elastography ?? IMPRESSION: ?? 1. Echogenic liver consistent with hepatic steatosis ?? 2. Elastography: ??Liver elastography measurements are consistent with a ?? high risk for clinically significant liver fibrosis (METAVIR Stage ?? F3-F4). ? Electronically signed by: ??Julien Reynoso MD ??09/03/2024 04:19 PM EST ?? RP ? Dictated By: ?Julien Reynoso MD ? Signed By: ?<Electronically signed by Julien Reynoso MD in OV> ? 09/03/24 1619 ? DD/ ? TD/TT: 07/07/24 1013 ? Employment Law Attorney: KOSTA ? Procedure Note Donkennedyter, Image - 09/03/[address] [address] Ultrasound Report Signed Patient: Jacki Baker IMR#: [id number] : 1955cct:[id number] Age/Sex: 68 / FADM Date: 07/07/24 Loc: HO.US Attending Dr: Yuliya Clayton NP Ordering Physician: Yuliya Clayton NP Date of Service: 07/07/24 Procedure(s): US abdomen garg w elastography Accession Number(s): [id number] cc: Karen Guthrie; Yuliya Clayton NP EXAMINATION: US ABDOMEN LIMITED WITH LIVER ELASTOGRAPHY CLINICAL INFORMATION: Fatty liver COMPARISON: Ultrasound abdomen 11/24/2023 TECHNIQUE: Real-time imaging of the abdominal viscera. Noninvasive ultrasound liver fibrosis assessment is performed using [employer] point quantification shear wave elastography (pSWE) with a 5 MHz transducer. Multiple elastography samples are obtained. FINDINGS: PANCREAS: The visualized pancreatic head and body are normal in appearance. The remainder of the pancreas is obscured from visualization by the overlying bowel gas. LIVER: The liver demonstrates normal size and contour but with increased echogenicity. No focal lesion or intrahepatic biliary duct dilatation. The right lobe measures 16.9 cm in length. The left lobe measures 12.0 cm in length. Shear wave elastography provides a median stiffness of 2.35 m/s (reference: normal median stiffness is 0.81 - 1.22 m/s). The IQR/median stiffness to assess sampling precision is 0.08 (reference: optimal IQR/median stiffness is under 0.3). GALLBLADDER: The gallbladder contains a small sludge ball but is physiologically distended without evidence of stones, polyps, wall thickening or pericholecystic fluid. COMMON BILE DUCT: Normal in caliber measuring 0.3 cm in diameter. RIGHT KIDNEY: No hydronephrosis. There is a mid renal cyst 4 mm echogenic focus with twinkle artifact consistent with a nonobstructing stone. No focal parenchymal lesions. The kidney measures 13 cm in maximum dimension. FREE FLUID: None seen. US/US abdomen garg w elastography IMPRESSION: 1. Echogenic liver consistent with hepatic steatosis 2. Elastography: Liver elastography measurements are consistent with a high risk for clinically significant liver fibrosis (METAVIR Stage F3-F4). Electronically signed by: Julien Reynoso MD 09/03/2024 04:19 PM EST Dictated By: Julien Reynoso MD Signed By: <Electronically signed by Julien Reynoso MD in OV> 09/03/24 1619 DD/ 0941 TD/TT: 07/07/24 1013 Employment Law Attorney: KOSTA [facility] External Provider IMG US PROCEDURES Final Result documented in this encounter Visit Diagnoses Not on filedocumented in this encounter Additional Health Concerns Assessment Noted Time PHQ-9 Depression Total Score: 14 024 1:04 PM EDT documented as of this encounter Care Teams Press Clippings Cutter And Paster Relationship Specialty Start Date End Date Karen Guthrie MD [address] [place] [phone] PCP - General Family Medicine 07/15/22 documented as of this encounter
--- OUTSIDE RECORDS SUMMARY | 2024-10-01 09:08 | XMS_ITS | Encounter Summary ---
Author Organization [employer] Address [address] [place] [address] Care Team Providers Care Loan Processor Name Role Phone Karen Guthrie MD Primary Care Provider [phone] Reason for Visit * Reason Comments Med Refill Encounter Details Date Type Department Care Team ([facility] Contact Info) Description 10/01/2023 Refill [facility] MEDICINE [address] [place], [place] [phone] Karen Guthrie MD [address] [place], [place] [phone] Type 2 diabetes mellitus with other specified complication, unspecified whether senior care insulin use ([facility]) Social History Tobacco Use Types Packs/Day Years Used Date Smoking Tobacco: Never Smokeless Tobacco: Never Alcohol Use Standard Drinks/Week Comments Never 0 (1 standard drink = 0.6 oz pur e alcohol) Housing Stability Answer Date Recorded What is your housing situation today? I have ping dumont 06/28/[address] you li ve. Do you have problems with any of the following? None of the above 06/28/2023 Food Insecurity Answer Date Recorded Within the past 12 months, y ou worried that your food would run out before you got money to buy more: Never True 06/28/2023 Within the past 12 months,th e food you bought just didn't last and you didn't have enough money to get more: Never True 11/2022 Transportation Answer Date Recorded In the past 12 months, has l ack of transportation kept you from medical appts, meetings, work or from getting things needed for daily living? No 06/28/2023 Utilities Answer Date Recorded In the past 12 months, has t he electric, gas, oil or water company threatened to shut off services in your home? No 06/28/2023 Depression Answer Date Recorded Patient Health Questionnaire-2 [...] Description 11/05/2024 11:00 AM EDT Office Visit [facility] MEDICINE [address] [place] [address] Karen Guthrie MD [address] [place] [address] 01/21/2025 10:00 AM EDT Office Visit [facility] OPTOMETRY [address] [place] [address] Robert, Yocasta, OD [address] [place] [address] documented as of this encounter Visit Diagnoses Diagnosis Type 2 diabetes mellitus with other specified complication, unspecified whether foundry supervisor insulin use ([facility]) documented in this encounter Care Teams Loan Processor Relationship Specialty Start Date End Date Karen Guthrie MD [address] [place] [address] PCP - General Family Medicine 07/15/22 documented as of this encounter
--- OUTSIDE RECORDS SUMMARY | 2024-10-01 09:08 | XMS_ITS | Encounter Summary ---
Author Organization [employer] [facility] Address [address] [facility] 7t [place] [address] Care Team Providers Care Disassembler Name Role Phone Karen Guthrie MD Primary Care Provider [phone] Encounter Details Date Type Department Care Team (Late st Contact Info) Description 01/10/2023 Orders Only [facility] MEDICINE [address] [place] [address] [phone] Karen Guthrie MD [address] [place] [address] [phone] Vomiting, unspecified vomiting type, unspecified whether nausea present (Primary Dx) Social History Tobacco Use Types Packs/Day Years [...] Description 11/05/2024 11:00 AM EDT Office Visit [facility] MEDICINE [address] [place] [address] [phone] Karen Guthrie MD [address] [place] [address] [phone] 01/21/2025 10:00 AM EDT Office Visit [facility] OPTOMETRY [address] [place] [address] Yocasta Jones, OD [address] [place] [address] Scheduled Orders Name Type Priority Associated Diagnoses Orde r Schedule Basic Metabolic Panel Lab Routine Vomiting, unspecified vomiting type, unspecified whether nausea present Expected: 01/10/2023 (Approximate), Expires: 01/11/2024 documented as of this encounter Visit Diagnoses Diagnosis Vomiting, unspecified vomiting type, unspecified whether nausea present- Primary documented in this encounter Care Teams Disassembler Relationship Specialty Start Date End Date Karen Guthrie MD [address] [place] [address] PCP - General Family Medicine 07/15/22 documented as of this encounter
--- OUTSIDE RECORDS SUMMARY | 2024-10-01 09:08 | XMS_ITS | Encounter Summary ---
Author Organization [employer] [facility] Address [address] [facility] 7t [place] [address] Care Team Providers Care Epic Ambulatory Analyst Name Role Phone Karen Guthrie MD Primary Care Provider [phone] Encounter Details Date Type Department Care Team (Late Contact Info) Description 01/31/2023 Orders Only [facility] MEDICINE [address] [place] [address] [phone] Karen Guthrie MD [address] [place] [address] [phone] Constipation, unspecified constipation type (Primary Dx) Social History Tobacco Use Types [...] Encounters Date Type Department Care Team (Late Contact Info) Description 11/05/2024 11:00 AM EDT Office Visit [facility] MEDICINE [address] [place] [address] [phone] Karen Guthrie MD [address] [place] [address] [phone] 01/21/2025 10:00 AM EDT Office Visit [facility] OPTOMETRY [address] [place] [address] Yocasta Jones, OD 230 [place] [address] documented as of this encounter Visit Diagnoses Diagnosis Constipation, unspecified constipation type- Primary documented in this encounter Care Teams Epic Ambulatory Analyst Relationship Specialty Start Date End Date Karen Guthrie MD 230 [place], [place] [phone] PCP - General Family Medicine 07/15/22 documented as of this encounter
--- OUTSIDE RECORDS SUMMARY | 2024-10-01 09:08 | XMS_ITS | Encounter Summary ---
Author Organization [employer] Address [address] [place] [address] Care Team Providers Care Pulp Piler Name Role Phone Karen Guthrie MD Primary Care Provider [phone] Reason for Visit * Reason Onset Date Comments Med Refill 04/22/2024 Encounter Details Date Type Department Care Team ([facility] st Contact Info) Description 04/22/2024 Telephone [facility] MEDICINE [address] [place], [place] [phone] Karen Guthrie MD [address] [place] [address] Med Refill Social History Tobacco Use Types Packs/Day Years [...] encounter Miscellaneous Notes * Telephone Encounter - Magy Chaudhary LPN - 04/22/2024 9:39 AM EDT Medication was sent to [facility] on 03/10/24 with 3 refills. * Telephone Encounter - Harry Deal - 04/22/2024 9:27 AM EDT TC from pt requesting medication refill. Medications needing refill : Continuous Glucose Sensor (FreeStyle Khalif 2 Sensor) [facility] [place] To be sent to: [facility] documented in this encounter Plan of Treatment Upcoming Encounters Date Type Department Care Team (Late st Contact Info) Description 11/05/2024 11:00 AM EDT Office Visit [facility] MEDICINE [address] [place] [address] Karen Guthrie MD [address] [place] [address] 01/21/2025 10:00 AM EDT Office Visit [facility] OPTOMETRY [address] [place] [address] Yocasta Jones, JAMIE [address] [place] [address] documented as of this encounter Visit Diagnoses Not on filedocumented in this encounter Additional Health Concerns Assessment Noted Time PHQ-9 Depression Total Score: 14 024 1:04 PM EDT documented as of this encounter Care Teams Pulp Piler Relationship Specialty Start Date End Date Karen Guthrie MD [address] [place] [address] PCP - General Family Medicine 07/15/22 documented as of this encounter
--- OUTSIDE RECORDS SUMMARY | 2024-10-01 09:08 | XMS_ITS | Encounter Summary ---
Author Organization [employer] Address [address] [place] [address] Care Team Providers Care Frankfurter Inspector Name Role Phone Karen Guthrie MD Primary Care Provider [phone] Reason for Visit * Reason Comments Med Refill Encounter Details Date Type Department Care Team ([facility] Contact Info) Description 01/31/2024 Refill [facility] MEDICINE [address] [place], [place] [phone] Karen Guthrie MD [address] [place], [place] [phone] Vitamin D deficiency Social History Tobacco Use Types Packs/Day Years [...] Description 11/05/2024 11:00 AM EDT Office Visit [facility] MEDICINE [address] [place] [address] Karen Guthrie MD [address] [place] [address] 01/21/2025 10:00 AM EDT Office Visit [facility] OPTOMETRY [address] [place] [address] Robert, Yocasta, OD [address] [place] [address] documented as of this encounter Visit Diagnoses Diagnosis Vitamin D deficiency documented in this encounter Additional Health Concerns Assessment Noted Time PHQ-9 Depression Total Score: 14 024 1:04 PM EDT documented as of this encounter Care Teams Frankfurter Inspector Relationship Specialty Start Date End Date Karen Guthrie MD [address] [place], [place] [phone] PCP - General Family Medicine 07/15/22 documented as of this encounter
--- OUTSIDE RECORDS SUMMARY | 2024-10-01 09:09 | XMS_ITS | Encounter Summary ---
Author Organization [employer] [facility] Address [address] [place] [address] Care Team Providers Care Trial Court Justice Name Role Phone Karen Guthrie MD Primary Care Provider [phone] Encounter Details Date Type Department Care Team (Late Contact Info) Description 12/16/2022 Orders Only [facility] MEDICINE [address] [place] [address] [phone] Karen Guthrie MD [address] [place] [address] [phone] Epigastric pain (Primary Dx) Social History Tobacco Use Types [...] Description 11/05/2024 11:00 AM EDT Office Visit [facility] MEDICINE [address] [place] [address] [phone] Karen Guthrie MD [address] [place] [address] 01/21/2025 10:00 AM EDT Office Visit [facility] OPTOMETRY [address] [place] [address] RobertYocasta king, OD [address] [facility] [place] [address] documented as of this encounter Procedures Procedure Name Priority Date/Time Associated Diagnosis Comments GLUCOSE, WHOLE BLOOD Routine 01/01/2023 10:57 AM EDT Epigastric pain GLUCOSE, WHOLE BLOOD Routine 01/01/2023 10:32 AM EDT Epigastric pain documented in this encounter Results * Glucose, Whole Blood (01/01/2023 10:57 AM EDT) Glucose, Whole Blood 95 60 - 115 mg/dL [facility] Comment:METER #: [id number] Testing performed in the Endocrinology Department [address] , [address], [place]. 01/01/2023 10:5 7 AM EDT 01/01/2023 11:05 AM EDT [facility] External Provider LAB BLO OD ORDERABLES Final Result [facility] [address] [place] [phone] * Glucose, Whole Blood (01/01/2023 10:32 AM EDT) Glucose, Whole Blood 60 60 - 115 mg/dL [facility] Comment:METER #: [id number] 5Testing performed in the Endocrinology Department [address] , [address], [place]. 01/01/2023 10:3 2 AM EDT 01/01/2023 10:38 AM EDT [facility] External Provider LAB BLO OD ORDERABLES Final Result [facility] [address] [place] [address] [phone] documented in this encounter Visit Diagnoses Diagnosis Epigastric pain- Primary Abdominal pain, epigastric documented in this encounter Care Teams Trial Court Justice Relationship Specialty Start Date End Date Karen Guthrie MD [address] [place] [phone] PCP - General Family Medicine 07/15/22 documented as of this encounter
--- OUTSIDE RECORDS SUMMARY | 2024-10-01 09:09 | XMS_ITS | Clinical Summary ---
Author Organization [employer] Address [address] [facility] [address] [place] [address] Care Team Providers Care Bakery Worker Name Role Phone Karen Guthrie MD Primary Care Provider [phone] Allergies Active Allergy Reactions Criticality Noted Date Comments Hermilo Inhibitors Cough 05/18/2018 Aspirin 08/22/2010 Other reaction(s): Stomach Upset, unspecified Omeprazole 12/08/2014 Other reaction(s): DIZZINESS/SHAKING , DIZZINESS/SHAKING Penicillin V 08/22/2010 Other reaction(s): Rash, itching, swelling, unspecified Penicillins 12/04/2022 Sulfamethoxazole 10/29/2013 Other reaction(s): Rash Sulfamethoxazole-Trimethopri m 12/04/2022 Other reaction(s): Not available Sumatriptan Anaphylaxis High 02/20/2012 Trimethoprim 10/29/2013 Other reaction(s): Rash Medications clonazePAM (KlonoPIN) 1 MG tablet Take 1 mg by mouth at bedtime. 023 Active lamoTRIgine (LaMICtal) 200 MG tablet 023 Active mirtazapine (Remeron) 7.5 MG tablet 023 Active prazosin (Minipress) 5 MG capsule 023 Active risperiDONE (RisperDAL) 2 MG tablet Take 2 mg by mouth at bedtime. 023 Active Continuous Blood Gluc Spice Grinder (SiftitStyle Khalif 2 [place]) device USE TO TEST BLOOD SUGAR THREE TIMES DAILY AND NEEDED 1 each 023 Active benztropine (Cogentin) 0.5 MG tablet Take 0.5 mg by mouth at bedtime. 023 Active NovoLOG FLEXPEN 100 UNIT/ML penIndications:T ype 2 diabetes mellitus with other specified complication, with long-term current use of insulin ([facility]) INJECT 12 UNITS SUBCUTANEOUSLY WITH BREAKFAST, INJECT 10 UNITS WITH LUNCH, AND INJECT 12 UNITS WITH DINNER 15 mL Active dulaglutide (Trulicity) 4.5 MG/0.5ML solution pen-injector Inject 4.5 mg under the skin 1 (one) time per week. 4 each 024 Active bisacodyl (Dulcolax) 10 MG suppository UNWRAP AND INSERT 1 SUPPOSITORY RECTALLY DAILY NEEDED FOR CONSTIPATION Active Trulicity 1.5 MG/0.5ML solution pen-injector INJECT ONE PEN (=1.5MG) SUBCUTANEOUSLY ONCE A WEEK DIRECTED Active Multiple Vitamin (Multivitamin) tablet TAKE 1 TABLET BY MOUTH EVERY MORNING WITH FOOD 90 tablet 3 Active D3 Super Strength 50 MCG (1999 [place]) capsuleIndicatio ns:Vitamin D deficiency TAKE 1 CAPSULE BY MOUTH EVERY MORNING 90 capsule 3 024 Active liver oil-zinc oxide (Desitin) 40 % ointment Apply topically if needed in the morning and at bedtime for irritation. 56 g Active Continuous Glucose Sensor (FreeStyle Khalif 2 Sensor) misc TEST BLOOD SUGAR THREE TIMES DAILY AND NEEDED. CHANGE EVERY 14 DAYS 2 each 3 024 Active Fiber-Lax 625 MG tablet TAKE 1 TABLET BY MOUTH TWICE DAILY IN THE MORNING AND IN THE EVENING 180 tablet 3 Active glucose blood (FREESTYLE LITE) test stripIndications :Type 2 diabetes mellitus with other specified complication, unspecified whether local company intermodal truck driver insulin use ([facility]) TEST BLOOD SUGAR 4 TO 6 TIMES PER DAY 100 strip 5 024 Active insulin pen needle (Pentips) 32G x 4 mm miscIndications: Type 2 diabetes mellitus with other specified complication, unspecified whether custodial insulin use ([facility]) USE DIRECTED TO INJECT DAILY 100 each 5 024 Active Tresiba FlexTouch 200 UNIT/ML injection INJECT 85 UNITS SUBCUTANEOUSLY ONCE DAILY 18 mL 3 10/09/2 024 Active TRUEplus Lancets 33G [facility] [place] USE DIRECTED TO TEST BLOOD SUGAR 4 TO 6 TIMES A DAY 100 each 11 Active omeprazole (PriLOSEC) [address] capsuleIndicatio ns:Gastroesophag eal reflux disease without esophagitis TAKE 1 CAPSULE BY MOUTH TWICE DAILY IN THE MORNING AND IN THE EVENING BEFORE MEALS 180 capsule 3 024 Active cetirizine (ZyrTEC) 10 MG tablet TAKE 1 TABLET BY MOUTH TWICE DAILY FOR ANGIOEDEMA 180 tablet 3 024 Active atorvastatin (Lipitor) 40 MG tabletIndication s:Hyperlipidemia , unspecified hyperlipidemia type Take 1 tablet (40 mg) by mouth at bedtime. 90 tablet 3 024 Active senna (Senokot) 8.6 MG tablet Take 1 tablet (8.6 mg) by mouth Once per day. For constipation 90 tablet 3 024 Active losartan (Cozaar) 50 MG tabletIndication s:Essential hypertension TAKE 1 TABLET BY MOUTH EVERY MORNING (HIGH BLOOD PRESSURE) 90 tablet 3 024 Active docusate sodium (Colace) 100 MG capsule TAKE 1 CAPSULE BY MOUTH TWICE DAILY IN THE MORNING AND IN THE EVENING 180 capsule 3 024 Active Jardiance 10 MG Active metFORMIN (Glucophage) 1000 MG tablet 023 2024 Discontinued metFORMIN XR (Glucophage-XR) 500 MG 24 hr tablet TAKE 2 TABLETS BY MOUTH TWICE DAILY IN THE MORNING AND EVENING 024 2024 Discontinued(R eorder (will not trigger notification to Pharmacy)) metFORMIN XR (Glucophage-XR) 500 MG 24 hr tablet Take 2 tablets (1,000 mg) by mouth 2 times daily. Do not crush, chew, or split.TAKE 2 TABLETS BY MOUTH TWICE DAILY IN THE MORNING AND EVENING 360 tablet 3 025 2024 Discontinued(S jesús effects) Active Problems Problem Noted Date Diagnosed Date 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 05/31/2024 Other constipation 09/22/2023 Assessment & Plan (12/23/2023 7:56 AM EDT): Continue current meds: has Miralax, Senna, fiber, stool softeners at home Lumbago with sciatica 06/22/2021 Candidiasis of vagina 12/18/2018 Assessment & Plan (12/23/2023 7:55 AM EDT): Likely reoccurent, Clotrimazole to external vagina Hyperlipidemia associated wi th type 2 diabetes mellitus ([facility]) 12/18/2018 Recurrent major depression in partial remission 11/17/2018 Diarrhea 09/18/2018 Volume depletion 09/18/2018 Vomiting 09/18/2018 Gastroenteritis 07/02/2018 Memory impairment 07/02/2018 Cough due to HERMILO inhibitor 05/18/2018 Foot callus 05/18/2018 Tubular adenoma of colon 05/18/2018 Assessment & Plan (09/22/2023 9:52 AM EST): Call GI to schedule Assessment & Plan (05/21/2023 5:57 AM EDT): Re-refer to GI, supposed to repeat Cscope in 2020 at [facility] [place] Did not get scheduled, overdue In the meantime, continue bowel regimen Epigastric pain 03/03/2018 Assessment & Plan (12/06/2022 8:41 AM EDT): Exam with tenderness in epigastrium and LUQ, WBC returned at 17.5 and pulse of 111 Normal lipase Diff dx: ulcer, diverticulitis, small bowel overgrowth Will start antibiotics and assess need for CT scan if not improving Posttraumatic stress disorder 03/03/2018 Recurrent major depressive episodes, moderate Multiple nodules of lung 02/05/2018 Hypermetropia 01/30/2018 Dry eyes 01/14/2018 Left posterior capsular opacification 01/14/2018 Presbyopia 01/14/2018 Cough 12/22/2017 Leukocytosis 09/09/2017 Viral disease 08/27/2017 Urinary incontinence 06/09/2017 Adjustment disorder with depressed mood 09/21/19 16 Dental caries 11/25/2013 Depressive disorder 07/13/2012 Uncontrolled diabetes mellitus 06/24/2012 Essential hypertension 10/10/2011 Assessment & Plan (12/23/2023 7:54 AM EDT): At goal today Continue Losartan 50mg daily Assessment & Plan (09/22/2023 9:52 AM EST): Not at goal Increase Losartan to 50mg daily Obesity 10/10/2011 Type 2 diabetes mellitus wit h hyperglycemia, with long-term current use of insulin 09/04/2011 Assessment & Plan (12/23/2023 7:56 AM EDT): Current A1c: 9.9, increase Tresiba to 85units daily BMP: K and Cr normal Microalbumin: due, today Foot Exam: at endo Eye Exam: last one year ago Lipid panel: ordered, today ASCVD: Calculate pending updated labs Statin: Yes ASA: No HERMILO/ARB: Yes, Losartan Encouraged regular aerobic exercise for improved glycemic control Encouraged daily foot checks Encouraged lean protein snacks and to avoid foods high in sugar and simple carbohydrates Treatment Goals: A1c goal: <7% FBG goal: <130 2 hour post prandial goal: <180 Assessment & Plan (09/22/2023 9:53 AM EST): Current A1c: 9.3, increase trulicity to 4.5mg weekly BMP: K and Cr normal Microalbumin: due, today Foot Exam: at endo Eye Exam: last one year ago Lipid panel: ordered, today ASCVD: Calculate pending updated labs Statin: Yes ASA: No HERMILO/ARB: Yes, Losartan Encouraged regular aerobic exercise for improved glycemic control Encouraged daily foot checks Encouraged lean protein snacks and to avoid foods high in sugar and simple carbohydrates Treatment Goals: A1c goal: <7% FBG goal: <130 2 hour post prandial goal: <180 Assessment & Plan (05/21/2023 6:04 AM EDT): Current A1c: 8.0, increase trulicity to 3mg weekly BMP: K and Cr normal Microalbumin: due Foot Exam: Complete at follow up Eye Exam: Discuss at follow up Lipid panel: ordered ASCVD: Calculate pending updated labs Statin: Yes ASA: No HERMILO/ARB: Yes, Losartan Encouraged regular aerobic exercise for improved glycemic control Encouraged daily foot checks Encouraged lean protein snacks and to avoid foods high in sugar and simple carbohydrates Treatment Goals: A1c goal: <7% FBG goal: <130 2 hour post prandial goal: <180 Assessment & Plan (12/06/2022 8:41 AM EDT): Current A1c: 7.1 BMP: K and Cr normal Microalbumin: due Foot Exam: Complete at follow up Eye Exam: Discuss at follow up Lipid panel: ASCVD: Calculate pending updated labs Statin: Yes ASA: No HERMILO/ARB: No Encouraged regular aerobic exercise for improved glycemic control Encouraged daily foot checks Encouraged lean protein snacks and to avoid foods high in sugar and simple carbohydrates Treatment Goals: A1c goal: <7% FBG goal: <130 2 hour post prandial goal: <180 Disorder of skeletal muscle 06/20/2011 Shoulder joint pain 05/23/2011 Encounters Date Type Department Care Team Description 09/23/2024 Orders Only [facility] [address] [place] [address] Karen Guthrie MD 09/22/2024 Refill [facility] [address] [place] [address] Karen Guthrie MD 09/10/2024 Telephone [facility] [address] [place] [address] Morena Sandoval [place] recall 07/12/2024 Refill [facility] [address] [place] [address] Karen Guthrie MD Essential hypertension 07/07/2024 Orders Only [facility] External Provider, [facility] 07/05/2024 Refill [facility] [address] [place] [address] Karen Guthrie MD Hyperlipidemia, unspecified hyperlipidemia type from Last 3 Months Immunizations Name Administration Dates Next Due Hep B, adult 04/02/2022,03/07/2017,01/24/2017 Influenza High-dose Quadriva lent Preservative Free 05/19/2023,05/28/2022 Influenza injectable quadriv alent IIV4 with preservative 05/18/2018,05/09/2016,05/19/2015 Influenza injectable quadriv alent preservative free 05/24/2019,06/09/2017 Influenza, High Dose Seasona l, Preservative Free 05/27/2024 Influenza, IIV3, injectable 05/17/2014, 3 Influenza, Split (incl. renetta fied surface antigen) 04/21/2012 Moderna Covid-19 Vaccine 12+ 01/08/2022 Pfizer Covid-19 Vaccine 12+ 05/27/2024, 1 Pneumococcal Conjugate PCV 20 04/02/2022 Pneumococcal Polysaccharide PPSV23 05/18/2018 Tdap 01/24/2017 Zoster, Recombinant 03/08/2022,01/01/2022 Social History Tobacco Use Types Packs/Day Years Used Date Smoking Tobacco: Never Smokeless Tobacco: Never Tobacco Cessation:Counseling Given: Not Answered Alcohol Use Standard Drinks/Week Comments Never 0 [...] not to disclose 2021 10:14 AM EDT Last Filed Vital Signs Vital Sign Reading Time Taken Comments Blood Pressure 165/87 03/01/2024 10:08 AM EDT Pulse 90 03/01/2024 10:08 AM EDT Temperature 36.6 ??C (97.9 ??F) 03/01/2024 10:08 AM E DT Respiratory Rate 18 03/01/2024 10:08 AM EDT Oxygen Saturation 97% 03/01/2024 10:08 AM EDT Inhaled Oxygen Concentration - - Weight 71.7 kg (158 lb) 03/01/2024 10:08 AM EDT Height 162.6 cm (5' 4 ) 12/19/2023 1:02 PM EDT Body Mass Index 27.12 12/19/2023 1:02 PM EDT Plan of Treatment Upcoming Encounters Date Type Department Care Team (Late st Contact Info) Description 11/05/2024 11:00 AM EDT Office Visit [facility] [address] [place] [phone] Karen Guthrie MD [address] [place] [address] 01/21/2025 10:00 AM EDT Office Visit [facility] [address] [place] [address] Yocasta Jones, OD [address] [place] [address] Health Maintenance Due Date Last Done Comments CT Colonography 1955 Colonoscopy 1955 FIT 1955 FOBT 1955 Sigmoidoscopy 1956 Diabetes: Foot Exam 1966 Eye Exam 1966 Alcohol/Substance Use Screening 1968 Hepatitis C Screening 1974 RSV Patients and Patients Aged 60 years or older (1 - Risk 60-74 years 1-dose series) 2016 Diabetes: Hemoglobin A1C 03/19/2024 024, 09/22/2023, 05/19/2023, Additional history exists Depression Monitoring (PHQ-9) 06/19/2024 12/19/2023, 12/19/2023 Diabetes: Urine Protein Screening 09/22/2024 09/22/2023, 03/22/2020 Lipid Panel 09/22/2024 09/22/2023, 03/22/2020 SDOH Screening 12/10/2024 12/11/2023 Depression Screening 12/18/2024 12/19/2023, 12/19/19 24 Diagnostic Breast Imaging 01/27/2025 07/29/2024, 05/2024 Tobacco Screening 05/31/2025 05/31/2024 Colorectal Cancer Screening 04/02/2026 FIT DNA/Cologuard 04/02/2026 04/02/2023 DTaP/Tdap/Td Vaccines (2 - Td or Tdap) 01/24/2027 01/24/2017 Zoster Vaccines Completed 03/08/2022, 01/01/2022 Hepatitis B Vaccines Completed 04/02/2022, 03/07/2017, 01/24/2017 Pneumococcal Vaccine: 50+ Years Completed 04/02/2022, 05/18/2018 COVID-19 Vaccine Completed 05/27/2024, , 06/27/2021, Additional history exists Influenza Vaccine Completed 05/27/2024, , 05/28/2022, Additional history exists HIB Vaccines Aged Out No longer eligi ble based on patient's age to complete this topic HPV Vaccines Aged Out No longer eligi ble based on patient's age to complete this topic Hepatitis A Vaccines Aged Out No long er eligible based on patient's age to complete this topic IPV Vaccines Aged Out No longer eligi ble based on patient's age to complete this topic Meningococcal Vaccine Aged Out No ambrocio yong eligible based on patient's age to complete this topic RSV under 20 months Aged Out No longe r eligible based on patient's age to complete this topic Rotavirus Vaccines Aged Out No longer eligible based on patient's age to complete this topic Procedures Procedure Name Priority Date/Time Associated Diagnosis Comments BI MAMMOGRAM DIAGNOSTIC LEFT Routine 07/29/2024 1:30 PM EST US ABDOMEN GARG W ELASTOGRAPHY Routine 07/07/2024 9:41 AM EST POCT GLYCATED HEMOGLOBIN, TOTAL Routine 12/19/2023 1:07 PM EDT Type 2 diabetes mellitus with other specified complication, unspecified whether local company intermodal truck driver insulin use (CMS/HCC) ALBUMIN, RANDOM URINE W/CREATININE Routine 09/22/2023 9:54 AM EST Type 2 diabetes mellitus with other specified complication, unspecified whether local company intermodal truck driver insulin use (CMS/HCC) LIPID PANEL, STANDARD Routine 09/22/2023 9:51 AM EST Type 2 diabetes mellitus with other specified complication, unspecified whether local company intermodal truck driver insulin use (CMS/HCC) HM FIT DNA/COLOGUARD CANCER SCREENING Routine 04/02/2023 from Last 3 Months or Most Recently Relevant to Health Maintenance Results * BI Mammogram Diagnostic Left (07/29/2024 1:30 PM EST) Anatomical Region Laterality Modality Breast Left Mammography 07/29/2024 1:30 PM EST Narrative 07/29/2024 2:05 PM EST ? [facility] ? [address] ?[place] [address] ? Mammography Report ? Signed ? Patient: Jacki Baker Ger ?MR#: [id number] ?? [id number] ? : 1955 ?Acct:[id number] ? Age/Sex: 68 / F ?ADM Date: 12/05/24 ? Loc: HO.MAMMO ? Attending Dr: Karen Guthrie MD ? Ordering Physician: Karen Guthrie ?Results: 3.6MProba ?? yursa Benign Finding - Short 6 M F/U Suggested ? Date of Service: 07/29/24 ?Follow Up: 6 Month F/U ? Procedure(s): MM diagnostic mammo unilat LT ?? Accession Number(s): [id number] ? cc: Karen Guthrie ? EXAMINATION: ?? MM DIAGNOSTIC DIGITAL MAMMOGRAPHY, LEFT ? CLINICAL INFORMATION: ? 6 month follow-up for grouped coarse calcifications in the upper outer ?? left breast. ? COMPARISON: ?? Mammography: Comparison is made with available prior examinations. ? TECHNIQUE: ?? Digital mammography is performed in craniocaudal and mediolateral ?? oblique views along with computer-aided detection (CAD). ? FINDINGS: ?? The breasts are heterogeneously dense, which may obscure small masses ?? (ACR BI-RADS breast composition Category c). ?? There are 2 groups of coarse heterogeneous calcifications in the upper ?? outer breast posterior depth and upper outer breast middle depth not ?? significantly changed from prior magnification views 6 months ago. ?? No suspicious masses or other abnormal findings. ? Results are provided to the patient at time of visit by the ?? technologist. ? MM/MM diagnostic mammo unilat LT ?? IMPRESSION: ?? Grouped calcifications in the upper outer breast posterior depth and ?? upper outer breast middle depth not significantly changed from ?? magnification views 6 months ago. Recommend 6 month follow-up with ?? Magnification views when the patient is due for bilateral mammography ?? for further evaluation of stability. ? ASSESSMENT: ? BI-RADS BI-RADS 3 - Probably benign finding(s) - 6 month follow-up ?? suggested ? RECOMMENDATION: ?? 6 Month F/U ? This patient's information was entered into a reminder system with a ?? target due date for their next mammogram. ? Electronically signed by: ??Susana Garcia DO ??07/29/2024 02:02 PM EST ?? RP ? Dictated By: ?Susana Garcia DO ? Signed By: ?<Electronically signed by Susana Garcia, DO in OV> ? 07/29/24 1402 ? DD/ 1330 ? TD/TT: 07/29/24 0715 ? Electrolytic De Scaler: ? Procedure Note Donotuseinterpreter, Image - 07/29/20[facility] [address] [place] [address] Mammography Report Signed Patient: Jacki Baker IMR#: [id number] : 7Acct:[id number] Age/Sex: 68 / FADM Date: 07/29/24 Loc: HO.MAMMO Attending Dr: Karen Guthrie MD Ordering Physician: Brett Guthrieults: 3.6MProba yusra Benign Finding - Short 6 M F/U Suggested Date of Service: 07/29/24Follow Up: 6 Month F/U Procedure(s): MM diagnostic mammo unilat LT Accession Number(s): [id number] cc: Karen Guthrie EXAMINATION: MM DIAGNOSTIC DIGITAL MAMMOGRAPHY, LEFT CLINICAL INFORMATION: 6 month follow-up for grouped coarse calcifications in the upper outer left breast. COMPARISON: Mammography: Comparison is made with available prior examinations. TECHNIQUE: Digital mammography is performed in craniocaudal and mediolateral oblique views along with computer-aided detection (CAD). FINDINGS: The breasts are heterogeneously dense, which may obscure small masses (ACR BI-RADS breast composition Category c). There are 2 groups of coarse heterogeneous calcifications in the upper outer breast posterior depth and upper outer breast middle depth not significantly changed from prior magnification views 6 months ago. No suspicious masses or other abnormal findings. Results are provided to the patient at time of visit by the technologist. MM/MM diagnostic mammo unilat LT IMPRESSION: Grouped calcifications in the upper outer breast posterior depth and upper outer breast middle depth not significantly changed from magnification views 6 months ago. Recommend 6 month follow-up with Magnification views when the patient is due for bilateral mammography for further evaluation of stability. ASSESSMENT: BI-RADS BI-RADS 3 - Probably benign finding(s) - 6 month follow-up suggested RECOMMENDATION: 6 Month F/U This patient's information was entered into a reminder system with a target due date for their next mammogram. Electronically signed by: Susana Garcia DO 07/29/2024 02:02 PM EST RP Dictated By: Susana Garcia DO Signed By: <Electronically signed by Susana Garcia DO in OV> 07/29/24 1402 DD/ 1330 TD/TT: 07/29/24 1355 Electrolytic De Scaler: us Karen Guthrie MD IMJacob BI PROCEDURES Edited Resul t - Final * US ABDOMEN GARG W ELASTOGRAPHY (07/07/2024 9:41 AM EST) Anatomical Region Laterality Modality Abdomen Ultrasound 07/07/2024 9:41 AM EST Narrative 09/03/2024 4:22 PM EST ? [facility] ?[address] ?[place] [address] ? Ultrasound Report ? Signed ? Patient: Jacki Baker I ?MR#: [id number] ?? [id number] ? : 1955 ?Acct:[id number] ? Age/Sex: 68 / F ?ADM Date: 07/07/24 ? Loc: HO.US ? Attending Dr: Yuliya Clayton NP ? Ordering Physician: Yuliya Clayton NP ?? Date of Service: 07/07/24 ?? Procedure(s): US abdomen garg w elastography ?? Accession Number(s): [id number] ? cc: Karen Guthrie; Yuliya Clayton NP ? EXAMINATION: ?? US ABDOMEN LIMITED WITH LIVER ELASTOGRAPHY ? CLINICAL INFORMATION: ?? Fatty liver ? COMPARISON: ?? Ultrasound abdomen 11/24/2023 ? TECHNIQUE: ?? Real-time imaging of the abdominal viscera. Noninvasive ultrasound ?? liver fibrosis assessment is performed using PixplitPQ point ?? quantification shear wave elastography (pSWE) [...] by Julien Reynoso MD in OV> ? 09/03/249 ? DD/ 0941 ? TD/TT: 07/07/24 1013 ? Electrolytic De Scaler: SS ? Procedure Note Antolin, Image - 09/03/[address] [address] Ultrasound Report Signed Patient: Jacki Baker [facility]#: [id number] : 7Acct:[id number] Age/Sex: 68 / FADM Date: 07/07/24 Loc: HO.US Attending Dr: Yuliay Clayton EMERGENCY RESPONSE TECHNICIAN Ordering Physician: Yuliya Clayton NP Date of Service: 07/07/24 Procedure(s): US abdomen garg w elastography Accession Number(s): [id number] cc: Karen Guthrie; Yuliya Clayton NP EXAMINATION: US ABDOMEN LIMITED WITH LIVER ELASTOGRAPHY CLINICAL INFORMATION: Fatty liver COMPARISON: Ultrasound abdomen 11/24/2023 TECHNIQUE: Real-time imaging of the abdominal viscera. Noninvasive ultrasound liver fibrosis assessment is performed using Corie ElastPQ point quantification shear wave elastography (pSWE) [...] 09/03/24 1619 DD/ 0941 TD/TT: 07/07/24 1013 Electrolytic De Scaler: SS [facility] External Provider IMG US PROCEDURES Final Result * (ABNORMAL) POCT HGB A1C (12/19/2023 1:07 PM EDT) Hemoglobin A1C 9.9(A) 4.0 - 6.0 % QC Media Lot # [id number] Lot# Expiration Date [id number] Blood 12/19/2023 1:07 PM EDT Karen Guthrie MD POINT OF CARE TEST ENTER/EDIT ORDERABLES Final Result * (ABNORMAL) Albumin, Random Urine W/Creatinine (09/22/2023 9:54 AM EST) Creatinine, Urine 228.61 mg/dL [facility] Microalbumin Urine 1,362.0 mg/L [facility] Microalbum Creatinine Ratio Ur 595.7(H) <30 ug/mg cr [facility] Comment:Albumin/Creatinine R atio Reference Ranges: Normal: < 30 ug/mg creatinine Microalbuminuria: 30 - 300 ug/mg creatinineClinical Albuminuria: > 300 ug/mg creatinine Urine (Urine, Random) 09/22/2023 9:54 AM EST 09/22/2023 11:03 AM EST Karen Guthrie MD LAB URINE ORDERABLES Final Res ult [facility] [address] [place] [phone] * (ABNORMAL) Lipid Panel, Standard (09/22/2023 9:51 AM EST) Triglycerides 197(H) <150 mg/dL [facility] Comment:Desirable Triglyceri de: less than 150 mg/dLBorderline High Triglyceride 150-199 mg/dLHigh Triglyceride: 200-499 mg/dLVery High Triglyceride: greater than or equal to 5OO mg/dL Cholesterol 130 <200 mg/dL [facility] Comment:Desirable Cholestero l: less than 200 mg/dLBorderline High Cholesterol: 200-239 mg/dLHigh Cholesterol: greater than 239 mg/dL LDL Cholesterol Calculated 46 <100 mg/dL [facility] Comment:Desirable LDL: less than 100 mg/dLNear Optimal/Above Optimal LDL: 110- 129 mg/dLBorderline High LDL: 130-159 mg/dLHigh LDL: 160-189 mg/dLVery High LDL: greater than or equal to 190 mg/dL HDL Cholesterol 45 >40 mg/dL [facility] Comment:Desirable HDL: great er than 40 mg/dL Note: This HDL assay may give artificially low results in patients with liver disease. Blood Venous blood specimen / Unknown 09/22/2023 9:51 AM EST 09/22/2023 11:18 AM EST Karen Guthrie MD LAB BLOOD ORDERABLES Final Res ult [facility] [address] [place] [phone] * FIT DNA/Cologuard Cancer Screening (04/02/2023) Cologuard Cancer Screen Negative Stool Karen Guthrie MD HEALTH MAINTENANCE Final Resul t from Last 3 Months or Most Recently Relevant to Health Maintenance Insurance [facility] Care Teams Bakery Worker Relationship Specialty Start Date End Date Karen Guthrie MD [address] [place] [address] PCP - General Family Medicine 07/15/22
[2024-10-01 11:49] LABS: Anion Gap 15 (12-20); Carbon Dioxide 25 mmol/L (22-29); Chloride 104 mmol/L (96-108); Estimated Glomerular Filt Rate > 60; Potassium 4.1 mmol/L (3.3-5.1); Sodium 140 mmol/L (135-145)
== END 2024-10-01 08:47 | disposition home or self-care (01) ==
LOC: HO.LAB 08:46
PROVIDERS: Visit Provider Nurse Practitioner Adult Health
DX: E11.40 Type 2 diabetes mellitus with diabetic neuropathy, unspecified (principal); E11.319 Type 2 diabetes mellitus with unspecified diabetic retinopathy without macular edema; E11.21 Type 2 diabetes mellitus with diabetic nephropathy; E78.5 Hyperlipidemia, unspecified; Z83.3 Family history of diabetes mellitus; Z79.84 Long term (current) use of oral hypoglycemic drugs; Z79.899 Other long term (current) drug therapy
CPT/HCPCS: 36415; 80051; 82565; 82947; 83036; 99212

== ENCOUNTER → 2024-10-01 09:06 | Outpatient (AMB) | payer OTHER, SELFPAY ==
--- NOTE | 2024-10-01 08:30 | A.OFFVIS_ITS ---
Vital Signs 10/01/24 09:14 Height 5 ft 6 in Weight 147 lb BMI 23.7 BP 156/72 H Blood Pressure Location Rt brachial Position Sitting Pulse 72 Pulse Source Pulse Oximeter Intake Visit Reasons: TYPE 2 DM Intake Note: Patient presents today for a follow-up on Type 2 Diabetes Mellitus: Last Diabetic Eye exam: Patient states she has yearly appt, Next appt is on 09/2024. Last Podiatry Exam: Does not see a Sales Representative [employer] Most recent HbA1c: 9.7% 10/01/2024 Random Glucose- 297 mg/dL, Today Transport Assistant Required: Yes Transport Assistant Language: Store Assistant Services: Transport Assistant Offered & Declined Information Interpreted: non-clinical & clinical Accompanied by: Self / Same As Patient Allergies Penicillins [PENICILLINS] Allergy (Intermediate, Verified 06/16/24 09:32) ITCH/RASH sulfamethoxazole [From Bactrim] Allergy (Intermediate, Verified 06/16/24 09:32) RASH sumatriptan Allergy (Intermediate, Verified 06/16/24 09:32) rash trimethoprim [From Bactrim] Allergy (Intermediate, Verified 06/16/24 09:32) RASH pepperoni Allergy (Intermediate, Uncoded 06/16/24 09:32) rash HPI 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 She was last seen in [facility] 09/30/24 at which time jardiance was added. Hemoglobin A1c 10/01/24:9.7% 06/16/2024 9.7% , 9.8% on 03/03/24 same as 10/30/23 and up from previous of mid 7% in 2022. She recently had surgery for right carpal tunnel Initially diagnosed with T2DM in >10 yrs. Previous medications: Trulicity and regular strength metformin GI intolerability, declined trial on extended release metformin Was initially started on treatment with metformin. Trulicity: diarrhea and bloating. Tried freestyle 3: She felt technology was too complicated. Current regimen jardiance Tresiba 42 units NovoLog 8 units tid Freestyle Khalif average 210 with the highest readings being from 12-6 p.m. Denies hypoglycemia Family history of type 2 diabetes +Retinopathy: Has eyes checked yearly, last eye exam has appt 09/2023 has appt 10/19 +neuropathy: Numbness and tingling, no cramping in the lower extremity does not see podiatry but has in the past and had foot surgery. some pain related to foot surgery +nephropathy, on losartan Has HLD, on statin. Most recent LDL 08/2023 46 Denies CAD. Denies hypoglycemia Family history of type 2 diabetes +Retinopathy: Has eyes checked yearly, last eye exam has appt 09/2023 has appt 10/19 +neuropathy: Numbness and tingling, no cramping in the lower extremity does not see podiatry but has in the past and had foot surgery. some pain related to foot surgery +nephropathy, on losartan Has HLD, on statin. Most recent LDL 08/2023 46 Denies CAD. [facility] screen Fibrosis-4 (Fib-4) Index for liver fibrosis (calculated on lab work done: 11/2023 ) 1.08 points Advanced fibrosis excluded Approximate Fibrosis stage Caleb [0-1] *Use with caution in patients <35 or >65 years old, as the score has been shown to be less reliable in these patients. Prior Imaging Ultrasound: LIVER: Hepatomegaly with right hepatic lobe measuring 17.8 cm. Left hepatic lobe measures 14.1 cm. Increased hepatic parenchymal heterogeneity and echogenicity could be associated with hepatocellular disease/hepatic steatosis and severely limits visualization. Correlation with liver function tests and clinical exam recommended to determine further management. ] Action Plan: ultrasound with elastography Saw harrisonist at [facility] in the past. [facility] Medical History (Updated 09/07/24 @ 13:23 by Yuliya Clayton NP) Fatty liver Nephropathy Pre-ulcerative corn or callous Abnormal colonoscopy Colon adenomas Nausea & vomiting Irritable bowel syndrome with constipation History of hyperopia Gastroenteritis Memory impairment Hyperlipidemia Hypertension Myalgia and myositis Urinary incontinence Diabetes mellitus Depression Anxiety Insomnia History of lipoma Surgical History (Updated 06/30/24 @ 11:26 by TY Tafoya) History of carpal tunnel surgery Hx of cataract extraction Hx of right breast biopsy Hx of colonoscopy History of esophagogastroduodenoscopy (EGD) Hx of foot surgery History of back surgery Hx of total hysterectomy Family History Mother Diabetes Father Prostate cancer Social History Household Members: None Household Members Other:: none Housing: Apartment Do you presently have visiting nurse or other home services: Yes ([employer] and VNA) Alcohol intake: never Patient Tobacco Use Status: Never used Tobacco service: No Current occupational status: disabled Sexual orientation: Straight/Heterosexual Physical Exam Vital Signs: Last Vital Signs Pulse 72 10/01/24 09:14 BP 156/72 H 10/01/24 09:14 BMI result Body Mass Index 23.7 Const Other: Absence of Cushingoid features. Absence of acromegalic features. Heart S1 S2, Reg R/R. No M/R G. Skin exam reveals absence of vitiligo or acanthosis nigricans. no edema . Results AMB Hemoglobin A1c AMB Hemoglobin A1c 9.7 % Last Edit by TY Tafoya on 10/01/24 09:37 Results Reviewed Results Reviewed: Laboratory Last Values Glucose (Clinic) 297 mg/dL (60-115) H 10/01/24 09:19 Assessment & Plan Assessment & Plan (1) Diabetes mellitus: Code(s): E11.9 - Type 2 diabetes mellitus without complications Category: Medical Plan: 69-year-old type 2 diabetic with neuropathy, retinopathy and nephropathy with improving glucose numbers on Jardiance. New dosing Tresiba 48 units Humalog Breakfast 10-12 Lunch 10-12 Supper 8 She was asked to call the office in several weeks if her glucose average is not in the 160s The patient had an opportunity to ask questions regarding treatment plan. The patient expressed understanding and agreement with the above treatment plan. The patient is aware they should contact our office by phone for worsening glucose readings or for any low blood sugars which may warrant a change in diabetes medication. Compliance is encouraged with medications and any followup testing/consults which may have been ordered. Orders: Orders AMB Hemoglobin A1c Today E11.9 - Type 2 diabetes mellitus without complications Coding Level of Care Code Est Pt Level 4 (74969) Complex EM visit Add On G2211 Diagnoses Diabetes mellitus E11.9 Time Spent (min) 25 Comment Time spent reviewing labs/provider notes, face to face, chart doc
[2024-10-01 09:27] LABS: Glucose, Whole Blood 297 mg/dL (60-115)
== END | disposition home or self-care (01) ==
PROVIDERS: PCP General Practice; Visit Provider Nurse Practitioner Adult Health
CPT/HCPCS: 99214; G2211

== ENCOUNTER 2024-10-04 12:22 | Emergency (ER) | payer OTHER, SELFPAY ==
--- NOTE | 2024-10-04 12:28 | ED_ITS ---
HPI - General Adult General Chief complaint: General Medical Stated complaint: UNABLE TO CONTROL BS S/P MED CHANGE,BS 470 PER EMS Time Seen by Provider: 10/04/24 12:26 Source: patient and family Mode of arrival: EMS Limitations: language barrier History of Present Illness HPI narrative: This is a 69-year-old woman with past medical history of anxiety, colon adenomas, depression, diabetes mellitus, gastroenteritis, hypertension, insomnia, IBS with constipation, memory impairment, myalgias and myositis who presents for evaluation of hyperglycemia. Daughter is present at time of history and exam. History is obtained utilizing professional [place]ese interpretation. Patient states that she was seen on the by her conservation specialist in that they lowered her insulin. She states that she was recommended to take her Tresiba 42 units in the morning. She states that it was ?cut in half?. She states that she has also been taking 10 units of his short- acting insulin 3 times a day with meals. She states that over the last several days she has noticed her sugar to be as high as 479. She states no fevers, chills, cough, chest pain, dyspnea, abdominal pain, nausea, vomiting or urinary symptoms. She states no falls or injuries. She states that they discontinue in upper diabetes medications and wonders if this is contributing to her symptoms. She states that she has not taken her short-acting insulin for lunch yet. Related Data Home Medications ?Medication ?Instructions ?Recorded ?Confirmed mirtazapine 7.5 mg tablet 7.5 mg PO BEDTIME 05/30/20 11/05/23 multivitamin 1 tab PO DAILY 05/30/20 11/05/23 atorvastatin 40 mg tablet 1 tab PO BEDTIME 11/30/21 11/05/23 clonazepam 0.5 mg tablet 1 tab PO DAILY PRN Anxiety 11/30/21 11/05/23 trazodone 150 mg tablet 2 tab PO BEDTIME 11/30/21 11/05/23 blood sugar diagnostic (FreeStyle #10 ea 05/15/22 11/05/23 Lite Strips) cetirizine 10 mg tablet 10 mg PO BID disorder of thyroid 05/15/22 11/05/23 gland lancets 33 gauge (TRUEplus Lancets) #100 ea 05/15/22 11/05/23 blood sugar diagnostic (FreeStyle 09/04/22 11/05/23 Lite Strips) losartan 25 mg tablet 25 mg PO DAILY 09/04/22 11/05/23 pen needle, diabetic 32 gauge x #50 ea 09/04/22 11/05/23 (UltiCare Pen Needle) lamotrigine 200 mg tablet 200 mg PO DAILY 03/03/24 prazosin 5 mg capsule 5 mg PO BEDTIME 03/03/24 risperidone 2 mg tablet mg PO 03/03/24 insulin degludec 200 unit/mL (3 80 unit subcut 05/12/24 05/12/24 mL) subcutaneous pen (Tresiba FlexTouch U-200 insulin) Previous Rx's ?Medication ?Instructions ?Recorded omeprazole 20 mg capsule,delayed 20 mg PO DAILY #30 caps 02/22/21 release insulin aspart U-100 100 unit/mL See Rx Instructions subcut TID 30 03/31/24 (3 mL) subcutaneous pen (Novolog days #6 mL FlexPen U-100 Insulin aspart) flash glucose sensor (FreeStyle #2 ea 05/14/24 Khalif 2 Sensor kit) cholecalciferol (vitamin D3) 50 50 mcg PO DAILY 30 days #30 caps 07/06/24 mcg (2,000 unit) capsule empagliflozin 10 mg tablet 10 mg PO DAILY 30 days #30 tabs 09/22/24 (Jardiance) Allergies Allergy/AdvReac Type Severity Reaction Status Date / Time Penicillins [PENICILLINS] Allergy Intermediate ITCH/RASH Verified 10/04/24 12:36 sulfamethoxazole Allergy Intermediate RASH Verified 06/16/24 09:32 [From Bactrim] sumatriptan Allergy Intermediate rash Verified 06/16/24 09:32 trimethoprim [From Bactrim] Allergy Intermediate RASH Verified 06/16/24 09:32 pepperoni Allergy Intermediate rash Uncoded 06/16/24 09:32 Review of Systems 2 Review of Systems: ROS as per HPI [facility] Past Medical History Medical History Fatty liver Nephropathy Pre-ulcerative corn or callous Abnormal colonoscopy Colon adenomas Nausea & vomiting Irritable bowel syndrome with constipation History of hyperopia Gastroenteritis Memory impairment Hyperlipidemia Hypertension Myalgia and myositis Urinary incontinence Diabetes mellitus Depression Anxiety Insomnia History of lipoma Surgical History History of carpal tunnel surgery Hx of cataract extraction Hx of right breast biopsy Hx of colonoscopy History of esophagogastroduodenoscopy (EGD) Hx of foot surgery History of back surgery Hx of total hysterectomy Family History Family History Mother Diabetes Father Prostate cancer Social History Social History Household Members: None Household Members Other:: none Housing: Apartment Do you presently have visiting nurse or other home services: Yes (PREVENTATIVE MAINTENANCE TECHNICIAN and VNA) Alcohol intake: never Patient Tobacco Use Status: Never used Tobacco service: No Current occupational status: disabled Sexual orientation: Straight/Heterosexual Physical Exam ED Vital Signs: Vital Signs - 24 hr 10/04/24 12:33 10/04/24 12:42 Temperature 98.1 F 98.1 F Pulse Rate 86 82 Respiratory Rate 18 18 Blood Pressure 157/77 H Pulse Oximetry 95 96 Oxygen Delivery Method Room Air Room Air BMI result Body Mass Index 25.5 Gen: NAD, AOx3 HEENT: NCAT, EOMI, normal conjunctiva CV: RRR Pulm: CTAB, no increased work of breathing GI: Soft, NTND, no rebound, guarding or rigidity Neuro: Grossly non focal Medications Administered Discontinued Medications Generic Name Dose Route Start Last Admin Trade Name Freq PRN Reason Stop Dose Admin Lactated Ringer's 1,000 mls @ 999 mls/hr 10/04/24 12:28 10/04/24 14:39 Lr IV 10/04/24 13:28 Infused .Q1H1M ONE Infusion Insulin Human Lispro 10 unit 10/04/24 13:20 10/04/24 13:31 Insulin Lispro 100 Unit/Ml 3 Ml Vial SUBCUT 10/04/24 13:21 10 unit ONCE ONE Administration Medical Decision Making Medical Decision Making MDM Narrative: Differential diagnosis includes, but is not limited to hyperglycemia, diabetic ketoacidosis, acute kidney injury, electrolyte derangement, medication noncompliance. Patient is afebrile and hemodynamically stable on room air. Exam is benign and reassuring. Given patient's provided history and review of the medical record, I suspect that patient has been inadvertently administering insufficient insulin as per endocrinology recommendations. Discussed with this with the patient and her daughter utilizing a professional electric train driver. I have provided them with the recommended insulin regimen as recommended to the patient on recent endocrinology visit on 01 October 2024. Patient was treated supportively here with IV fluids and 10 units insulin lispro. I reviewed the patient's labs as below. On re-examination, patient is well-appearing and in no acute distress. There is no indication for further emergent evaluation in this otherwise well-appearing patient as above. ?Patient is provided written and verbal instructions, educational materials, recommendations for outpatient follow-up, strict return precautions and teach back is performed. ?Patient states understanding and agreement with plan of care. ?Patient is discharged home in stable and improved condition. Admission/Observation Consideration of admission/observation: Escalation of care including admission/observation considered Lab Data MDM Lab Attestation statement: I reviewed the patient's lab results. I independently reviewed and interpreted patient's labs including CBC, venous blood gas and metabolic panel, which are benign and reassuring. CBC demonstrates no cell and derangements. Venous blood gases unremarkable with no acid-base disturbance. Metabolic panel is reassuring there is no elevated anion gap, electrolyte abnormality or evidence of acute kidney injury. Initially patient presents with hyperglycemia of approximately 370, which improves after 1 L IV fluids and 10 units insulin lispro to 175 prior to discharge. 10/04/24 12:52 10/04/24 12:53 Labs: Lab Results 10/04/24 10/04/24 10/04/24 Range/Units 12:33 12:52 12:53 WBC 10.4 (4.8-10.8) X10*3/uL RBC 4.61 (4.20-5.50) X10*6/uL Hgb 12.7 (12.0-16.0) g/dl Hct 39.1 (37.0-47.0) % MCV 84.8 (80.0-98.0) fL MCH 27.5 (27.0-33.0) pg MCHC 32.5 (31.0-35.0) g/dl RDW 12.7 (11.0-16.0) % Plt Count 253 (160-400) X10*3/uL MPV 10.0 (9.4-12.3) fL Immature Gran % (Auto) 0.5 H (0.0-0.4) % Neut % (Auto) 60.3 (45-73) % Lymph % (Auto) 30.8 (20-40) % Rapides % (Auto) 6.0 (2-11) % Eos % (Auto) 1.7 (0-4) % Baso % (Auto) 0.7 (0-2) % Lymph # (Auto) 3.2 (1.2-4.9) X10*3/uL Rapides # (Auto) 0.6 (0.1-1.2) X10*3/uL Eos # (Auto) 0.2 (0.0-0.4) X10*3/uL Baso # (Auto) 0.1 (0.0-0.2) X10*3/uL Abs Immat Gran (auto) 0.05 H (0.00-0.03) X10*3/uL Absolute Neuts (auto) 6.3 (2.0-8.3) x10*3/uL Absolute Nucleated RBC 0.000 (0.0-0.012) X10*3/uL Nucleated RBC % (auto) 0.0 (0.0-0.2) /100WBC VBG pH (7.32-7.43) VBG pCO2 mmHg VBG pO2 mmHg VBG HCO3 (22-26) mmol/L VBG O2 Saturation % VBG Base Excess mmol/L Sodium 142 (135-145) mmol/L Potassium 3.7 (3.3-5.1) mmol/L Chloride 108 (96-108) mmol/L Carbon Dioxide 24 (22-29) mmol/L Anion Gap 14 (12-20) BUN 14 (9-16) mg/dL Creatinine 0.98 (0.5-1.4) mg/dL Estim Creat Clear Calc 55.8 Estimated GFR 56 POC Glucose 360 H* (60-115) mg/dL Random Glucose 373 H* (60-115) mg/dL Calcium 9.4 D (8.4-10.2) mg/dL Magnesium 1.8 (1.6-2.6) mg/dL Beta-Hydroxybutyrate 0.15 (0.02-0.27) mmol/L 10/04/24 10/04/24 Range/Units 13:01 14:57 WBC (4.8-10.8) X10*3/uL RBC (4.20-5.50) X10*6/uL Hgb (12.0-16.0) g/dl Hct (37.0-47.0) % MCV (80.0-98.0) fL MCH (27.0-33.0) pg MCHC (31.0-35.0) g/dl RDW (11.0-16.0) % Plt Count (160-400) X10*3/uL MPV (9.4-12.3) fL Immature Gran % (Auto) (0.0-0.4) % Neut % (Auto) (45-73) % Lymph % (Auto) (20-40) % Rapides % (Auto) (2-11) % Eos % (Auto) (0-4) % Baso % (Auto) (0-2) % Lymph # (Auto) (1.2-4.9) X10*3/uL Rapides # (Auto) (0.1-1.2) X10*3/uL Eos # (Auto) (0.0-0.4) X10*3/uL Baso # (Auto) (0.0-0.2) X10*3/uL Abs Immat Gran (auto) (0.00-0.03) X10*3/uL Absolute Neuts (auto) (2.0-8.3) x10*3/uL Absolute Nucleated RBC (0.0-0.012) X10*3/uL Nucleated RBC % (auto) (0.0-0.2) /100WBC VBG pH 7.38 (7.32-7.43) VBG pCO2 40 mmHg VBG pO2 57 mmHg VBG HCO3 24 (22-26) mmol/L VBG O2 Saturation 82.0 % VBG Base Excess -0.3 mmol/L Sodium (135-145) mmol/L Potassium (3.3-5.1) mmol/L Chloride (96-108) mmol/L Carbon Dioxide (22-29) mmol/L Anion Gap (12-20) BUN (9-16) mg/dL Creatinine (0.5-1.4) mg/dL Estim Creat Clear Calc Estimated GFR POC Glucose 175 H (60-115) mg/dL Random Glucose (60-115) mg/dL Calcium (8.4-10.2) mg/dL Magnesium (1.6-2.6) mg/dL Beta-Hydroxybutyrate (0.02-0.27) mmol/L External Record Review External record reviewed: Office record Reviewed external, non-ED record from endocrinology office visit October 01, 2024. The patient's current diabetes mellitus regimen at time of visit was Jardiance, Tresiba 42 units and NovoLog 8 units t.i.d.. New dosing 48 units and Humalog breakfast 10-12, lunch 10-12 and supper 8. Discharge Plan Discharge Clinical Impression: Acute hyperglycemia Patient Disposition: Home, Self-Care Instructions: Diabetic Hyperglycemia (ED) Additional Instructions: You were evaluated in the emergency room for elevated blood sugar. You were given 10 units Humalog insulin. Please continue your current diabetes regimen of: Tresiba 48 units and Humalog breakfast 10-12 units, lunch 10-12 units and supper 8 units Please follow up with your Chemist Pharmaceutical in 1-2 weeks. Return to the emergency room with any new concerns or injuries. Lo evaluaron en la carla de emergencias por niveles elevados de az?car en la mara. Le administraron 10 unidades de insulina Humalog. Contin?e con paulino r?gimen actual para la diabetes de: Tresiba 48 unidades y Humalog desayuno 10-12 unidades, almuerzo 10-12 unidades y employee development director 8 unidades Vanita un seguimiento con paulino endocrin?logo en 1 o 2 semanas. Regrese a la carla de emergencias si tiene alguna inquietud o lesi?n nueva. Prescriptions: No Action (DME) FreeStyle Khalif 2 Sensor Kit See Rx Instructions .Route Qty: 2 11RF Rx Instructions: As directed cholecalciferol (vitamin D3) 50 mcg (2,000 unit) capsule 50 mcg PO DAILY 30 Days Qty: 30 3RF Jardiance 10 mg tablet 10 mg PO DAILY 30 Days Qty: 30 0RF multivitamin Tablet 1 tab PO DAILY mirtazapine 7.5 mg Tablet 7.5 mg PO BEDTIME atorvastatin 40 mg tablet 1 tab PO BEDTIME trazodone 150 mg tablet 2 tab PO BEDTIME clonazepam 0.5 mg tablet 1 tab PO DAILY PRN (Reason: Anxiety) omeprazole 20 mg capsule,delayed release(DR/EC) 20 mg PO DAILY Qty: 30 5RF (DME) FreeStyle Lite Strips Strip See Rx Instructions .ROUTE QID Qty: 10 Rx Instructions: As directed cetirizine 10 mg tablet 10 mg PO BID (DME) lancets [TRUEplus Lancets] 33 gauge misc See Rx Instructions .ROUTE .MEDSUPPLY Qty: 100 Rx Instructions: As directed (DME) FreeStyle Lite Strips Strip See Rx Instructions .Route Rx Instructions: As directed 3 times a day (DME) pen needle, diabetic [UltiCare Pen Needle] 32 gauge x 5/32 needle See Rx Instructions .ROUTE DAILY Qty: 50 Rx Instructions: As directed twice a day losartan 25 mg tablet 25 mg PO DAILY insulin aspart U-100 [Novolog FlexPen U-100 Insulin] 100 unit/mL (3 mL) insulin pen See Rx Instructions subcut TID 30 Days Qty: 6 11RF Rx Instructions: 80-150 15units 151-200 16units 201-250 17units 251-300 18units over 300 19 units subcutaneously 3 times a day with meals prazosin 5 mg capsule 5 mg PO BEDTIME lamotrigine 200 mg tablet 200 mg PO DAILY risperidone 2 mg tablet PO Tresiba FlexTouch U-200 200 unit/mL (3 mL) insulin pen 80 unit subcut Referrals: Yuliya Clayton, EMERGENCY GENERATOR MECHANIC [Nurse Practitioner] - 1 week Print Language: South Sudanese
[2024-10-04 12:33] VITALS: BP 158/76; PULSE 80; PULSE 86; RESP 18; TEMP 36.7; O2SAT 95; O2SAT 96; BMI 25.5
[2024-10-04 12:39] LABS: Glucose, Whole Blood 360 mg/dL (60-115)
[2024-10-04 12:42] VITALS: BP 157/77; PULSE 82; RESP 18; TEMP 36.7; O2SAT 96
[2024-10-04] MEDS: Lactated Ringers 1,000 ML 999 ML IV (12:52)
[2024-10-04 12:59] LABS: MANUAL DIFF FLAG NO
[2024-10-04 13:00] LABS: Basophils Absolute Auto 0.1 X10*3/uL (0.0-0.2); Basophils Percent Auto 0.7 % (0-2); Eosinophils Absolute Auto 0.2 X10*3/uL (0.0-0.4); Eosinophils Percent Auto 1.7 % (0-4); Hematocrit 39.1 % (37.0-47.0); Hemoglobin 12.7 g/dl (12.0-16.0); Imm Gran Abs Auto 0.05 X10*3/uL (0.00-0.03); Imm Gran Pct Auto 0.5 % (0.0-0.4); Lymphocytes Absolute Auto 3.2 X10*3/uL (1.2-4.9); Lymphocytes Percent Auto 30.8 % (20-40); Mean Corpuscular HGB Conc 32.5 g/dl (31.0-35.0); Mean Corpuscular Hemoglobin 27.5 pg (27.0-33.0); Mean Corpuscular Volume 84.8 fL (80.0-98.0); Monocytes Absolute Auto 0.6 X10*3/uL (0.1-1.2); Neutrophils Absolute Auto 6.3 x10*3/uL (2.0-8.3); Neutrophils Percent Auto 60.3 % (45-73); Platelet Count 253 X10*3/uL (160-400); Red Blood Count 4.61 X10*6/uL (4.20-5.50); Red Cell Distribution Width 12.7 % (11.0-16.0); White Blood Count 10.4 X10*3/uL (4.8-10.8)
[2024-10-04 13:06] LABS: VBG Base Excess -0.3 mmol/L; VBG HCO3 24 mmol/L (22-26); VBG pCO2 40 mmHg; VBG pH 7.38 (7.32-7.43); VBG pO2 57 mmHg
[2024-10-04 13:07] LABS: Venous Blood Gas Refer to POC result
[2024-10-04 13:14] LABS: Beta-Hydroxybutyrate 0.15 mmol/L (0.02-0.27)
[2024-10-04 13:18] LABS: Anion Gap 14 (12-20); Blood Urea Nitrogen 14 mg/dL (9-16); Calcium 9.4 mg/dL (8.4-10.2); Carbon Dioxide 24 mmol/L (22-29); Chloride 108 mmol/L (96-108); Creatinine Clr Calc Pharmacy 55.8; Estimated Glomerular Filt Rate 56; Glucose Random 373 mg/dL (60-115); Magnesium 1.8 mg/dL (1.6-2.6); Potassium 3.7 mmol/L (3.3-5.1); Sodium 142 mmol/L (135-145)
[2024-10-04] MEDS: Insulin Lispro 100 UNIT/ML 3 ML VIAL 10 UNIT SUBCUT (13:31)
--- OUTSIDE RECORDS SUMMARY | 2024-10-04 13:40 | XMS_ITS | Encounter Summary ---
Author Organization [email or web address] [facility] Address [address]t [place] [address] Care Team Providers Care Shared Services Representative Name Role Phone Karen Guthrie MD Primary Care Provider Encounter Details Date Type Department Care Team (Late Contact Info) Description 01/31/2023 Orders Only [facility] [address] [place] [address] [phone] Karen Guthrie MD [address] [place] [address] [phone] Constipation, unspecified constipation type (Primary Dx) Social [...] Description 11/05/2024 11:00 AM EDT Office Visit [facility] [address] [place] [address] [phone] Karen Guthrie MD [address] [place] [address] [phone] 01/21/2025 10:00 AM EDT Office Visit [facility] [address] [place] [address] Yocasta Jones, OD [address] [place] [address] documented as of this encounter Visit Diagnoses Diagnosis Constipation, unspecified constipation type- Primary documented in this encounter Care Teams Shared Services Representative Relationship Specialty Start Date End Date Karen Guthrie MD [address] [place], [place] [phone] PCP - General Family Medicine 07/15/22 documented as of this encounter
--- OUTSIDE RECORDS SUMMARY | 2024-10-04 13:40 | XMS_ITS | Encounter Summary ---
Author Organization [email or web address] Address [address] [place] [address] Care Team Providers Care Detacher Name Role Phone Karen Guthrie MD Primary Care Provider [phone] Reason for Visit * Reason Comments Med Refill Encounter Details Date Type Department Care Team ([facility] Contact Info) Description 01/31/2024 Refill [facility] [address] [place], [place] [phone] Karen Guthrie MD [address] [place], [place] [phone] Vitamin D deficiency Social History Tobacco Use [...] Description 11/05/2024 11:00 AM EDT Office Visit [facility] [address] [place] [address] Karen Guthrie MD [address] [place] [address] 01/21/2025 10:00 AM EDT Office Visit [facility] [address] [place] [address] Robert, Yocasta, OD [address] [place] [address] documented as of this encounter Visit Diagnoses Diagnosis Vitamin D deficiency documented in this encounter Additional Health Concerns Assessment Noted Time PHQ-9 Depression Total Score: 14 024 1:04 PM EDT documented as of this encounter Care Teams Detacher Relationship Specialty Start Date End Date Karen Guthrie MD [address] [place], [place] [phone] PCP - General Family Medicine 07/15/22 documented as of this encounter
--- OUTSIDE RECORDS SUMMARY | 2024-10-04 13:40 | XMS_ITS | Encounter Summary ---
Author Organization [employer] Address [address] [place] [address] Care Team Providers Care Air Tank Assembler Name Role Phone Karen Guthrie MD Primary Care Provider [phone] Reason for Visit * Reason Onset Date Comments Med Refill 04/22/2024 Encounter Details Date Type Department Care Team ([facility] st Contact Info) Description 04/22/2024 Telephone [facility] [address] [place], [place] [phone] Karen Guthrie MD [address] [place] [address] Med Refill Social History Tobacco Use Types [...] 9:39 AM EDT Medication was sent to [facility] on 03/10/24 with 3 refills. * Telephone Encounter - Harry Deal - 04/22/2024 9:27 AM EDT TC from pt requesting medication refill. Medications needing refill : Continuous Glucose Sensor (FreeStyle Khalif 2 Sensor) [facility] To be sent to: [facility] documented in this encounter Plan of Treatment Upcoming Encounters Date Type Department Care Team (Late st Contact Info) Description 11/05/2024 11:00 AM EDT Office Visit [facility] [address] [place] [address] Karen Guthrie MD [address] [place] [address] 01/21/2025 10:00 AM EDT Office Visit [facility] [address] [place] [address] Yocasta Jones, JAMIE [address] [place] [address] documented as of this encounter Visit Diagnoses Not on filedocumented in this encounter Additional Health Concerns Assessment Noted Time PHQ-9 Depression Total Score: 14 024 1:04 PM EDT documented as of this encounter Care Teams Air Tank Assembler Relationship Specialty Start Date End Date Karen Guthrie MD [address] [place] [address] PCP - General Family Medicine 07/15/22 documented as of this encounter
--- OUTSIDE RECORDS SUMMARY | 2024-10-04 13:40 | XMS_ITS | Encounter Summary ---
Author Organization [employer] [facility] Address [address] [place] [address] Care Team Providers Care Photographer Assistant Name Role Phone Quang Vasques MD Primary Care Provider Karen Kang MD Primary Care Provider [phone] Encounter Details Date Type Department Care Team (Latest Contact Info) Description 09/04/2018 Abstract [facility] Dental, Provider, DDS Social History [...] EDT Office Visit [facility] [address] [place] [address] Karen Guthrie MD [address] [place] [address] 01/21/2025 10:00 AM EDT Office Visit [facility] [address] [place] [address] Yocasta Jones, OD [address] [place] [address] documented as of this encounter Visit Diagnoses Not on filedocumented in this encounter Care Teams Photographer Assistant Relationship Specialty Start Date End Date Quang Vasques MD PCP - General Family Medicine 02/15/20 07/14/22 Karen Guthrie MD [address] [place] [address] PCP - General Family Medicine 07/15/22 documented as of this encounter
--- OUTSIDE RECORDS SUMMARY | 2024-10-04 13:40 | XMS_ITS | Encounter Summary ---
Author Organization [employer] [facility] Address [address] [place] [address] Care Team Providers Care Customer Field Representative Name Role Phone Karen Guthrie MD Primary Care Provider [phone] Encounter Details Date Type Department Care Team (Late st Contact Info) Description 01/10/2023 Orders Only [facility] [address] [place] [address] [phone] Karen Guthrie MD [address] [place] [address] [phone] Vomiting, unspecified vomiting type, unspecified whether nausea [...] Description 11/05/2024 11:00 AM EDT Office Visit [facility] [address] [place] [address] [phone] Karen Guthrie MD [address] [place] [address] [phone] 01/21/2025 10:00 AM EDT Office Visit [facility] [address] [place] [address] Yocasta Jones, OD [address] [place] [phone] Scheduled Orders Name Type Priority Associated Diagnoses Orde r Schedule Basic Metabolic Panel Lab Routine Vomiting, unspecified vomiting type, unspecified whether nausea present Expected: 01/10/2023 (Approximate), Expires: 01/11/2024 documented as of this encounter Visit Diagnoses Diagnosis Vomiting, unspecified vomiting type, unspecified whether nausea present- Primary documented in this encounter Care Teams Customer Field Representative Relationship Specialty Start Date End Date Karen Guthrie MD [address] [place] [address] PCP - General Family Medicine 07/15/22 documented as of this encounter
--- OUTSIDE RECORDS SUMMARY | 2024-10-04 13:40 | XMS_ITS | Data Portability ---
Author Organization [employer] [facility], [place] - [facility] Address [address] [place] [phone] Care Team Providers Care Gatehouse Attendant Name Role Phone [facility] Referring Provider YASEMIN LAMBERT Primary Care Provider Assessment Encounter Date Assessment Date Assessment LastModified by Organization Details LastModified Time 10/18/2022 10/18/2022 I provided real -time medical direction via phone for this encounter, and was available for additional phone based assistance as needed. I have reviewed and agree with the Assessment and Plan as documented by the Bat Carrier. Patient given the opportunity to ask questions. [email or web address] Not available 10/18/2022 23:13:30 12/11/2022 12/11/2022 I provided real -time medical direction via phone for this encounter, and was available for additional phone based assistance as needed. I have reviewed and agree with the Assessment and Plan as documented by the Bat Carrier. Patient given the opportunity to ask questions. Advised if develops CP/severe SOB/ increased abd pain/uncontrolle d n/v/d or black/bloody emesis or stool/ AMS/ syncope/ hi fever to call 911- verbalized understanding of instructions [email or web address] Not available 12/11/2022 16:54:21 05/06/2023 05/06/2023 I provided real -time medical direction via phone for this encounter, and was available for additional phone based assistance as needed. I have reviewed the Assessment and Plan as documented by the Bat Carrier. Patient given the opportunity to ask questions. [email or web address] Not available 05/07/2023 10:28:45 Plan of Treatment Reminders Order Date Submit Date Provider Last Modified By Organization Details Last Modified Time Details Appointments None recorded. Lab urinalysis, dipstick 2022 023 [email or web address] 0 [facility], [address] [place] [address], [address], 3 23:34:46 BMP, serum or plasma 2022 023 [email or web address] 0 [facility], [address] [place] [address], [address], 3 23:34:46 BMP, serum or plasma 2022 023 [email or web address] 0 [facility], [address] [place] [address], [address], 3 17:09:27 BMP, serum or plasma 2022 023 [email or web address] 0 [facility], [address] [place] [address], [address], 3 10:28:26 rapid SARS CoV 2 Ag, QL IA, respiratory specimen 2022 023 [email or web address] 0 [facility], [address] [place] [address], [address], 3 10:28:26 rapid flu (A+B) 2022 023 [email or web address] 0 [facility], [address] [place] [address], [address], 3 10:28:26 Referral None recorded. Procedures None recorded. Surgeries None recorded. Imaging None recorded. Medication Orders sodium chloride 0.9 % intravenous solution 2022 023 [email or web address] 0 Not available 3 23:34:46 ondansetron 4 mg disintegrat ing tablet [address] [facility], [address] [place] [address], [id number], 3 17:01:14 sodium chloride 0.9 % intravenous solution 2022 023 [email or web address] 0 [facility], [address] [place] [address], [id number], 3 17:09:27 ondansetron HCl (PF) 4 mg/2 mL injection solution [address] [facility], [address] [place] [address], [id number], 3 17:09:27 sodium chloride 0.9 % intravenous solution [address] [facility], [address] [place] [address], [id number], 3 10:28:26 ondansetron HCl (PF) 4 mg/2 mL injection solution [address] [facility], [address] [place] [address], [id number], 3 10:28:26 Patient TargetsNo targets recorded. Patient InstructionsNo instructions recorded. Reason for Referral None Reported. Results Created Date Observation Date Name Description Value Unit Range Abnormal Flag Note LastModifiedBy Organization Detail LastModifiedTime 10/18/1910/18/2022 urina lysis , dipst ick Leukocytes neg Not Available Main - [facility] [address] [place] [address], [address], 10/18/2022 23:20:01 10/18/19 23 10/18/2022 urina lysis , dipst ick Nitrite negati ve Not Available Main - Inst [address], [address], 10/18/2022 23:20:01 10/18/19 23 10/18/2022 urina lysis , dipst ick Urobilinogen neg Not Available Main - [facility] [address] [place] [address], [address], 10/18/2022 23:20:01 10/18/19 23 10/18/2022 urina lysis , dipst ick Protein neg Not Available Main - [facility] michael [address] [place] [address], [address], 10/18/2022 23:20:01 10/18/19 23 10/18/2022 urina lysis , dipst ick pH 6.5 Not Available Main - Ins [address], [address], 10/18/2022 23:20:01 10/18/19 23 10/18/2022 urina lysis , dipst ick Blood neg Not Available Main - [facility] [address] [place] [address], [address], 10/18/2022 23:20:01 10/18/19 23 10/18/2022 urina lysis , dipst ick Specific [place] 1;025 Not Available Main - [facility] [address] [place] [address], [address], 10/18/2022 23:20:01 10/18/19 23 10/18/2022 urina lysis , dipst ick Ketone trace Not Available Main - Ins [address], [address], 10/18/2022 23:20:01 10/18/19 23 10/18/2022 urina lysis , dipst ick Bilirubin trace Not Available Main - I nsted [address] [place] [address], [address], 10/18/2022 23:20:01 10/18/19 23 10/18/2022 urina lysis , dipst ick Glucose negati ve Not Available Main - [facility] [address] [place] [address], [address], 10/18/2022 23:20:01 10/18/19 23 10/18/2022 urina lysis , dipst ick Appearance clear Not Available Main - [facility] [address] [place] [address], [address], 10/18/2022 23:20:01 10/18/19 23 10/18/2022 urina lysis , dipst ick Color yelllo w Not Available Main - [facility] [address] [place] [address], [address], 10/18/2022 23:20:01 10/18/19 23 10/18/2022 BMP, serum or plasm a BUN 8 Not Available Main - Ins [address], [address], 10/18/2022 23:20:03 10/18/19 23 10/18/2022 BMP, serum or plasm a Ca I za = 1.21 Not Available Main - [facility] [address] [place] [address], [address], 10/18/2022 23:20:03 10/18/19 23 10/18/2022 BMP, serum or plasm a CI- 102 Not Available Main - Ins [address], [address], 10/18/2022 23:20:03 10/18/19 23 10/18/2022 BMP, serum or plasm a CRE 0.5 Not Available Main - [facility] [address], [address], 10/18/2022 23:20:03 10/18/19 23 10/18/2022 BMP, serum or plasm a GLU 100 Not Available Main - Ins [address], [address], 10/18/2022 23:20:03 10/18/19 23 10/18/2022 BMP, serum or plasm a K+ 4 Not Available Main - Ins [address], [address], 10/18/2022 23:20:03 10/18/19 23 10/18/2022 BMP, serum or plasm a Na+ 138 Not Available Main - [facility] [address], [address], 10/18/2022 23:20:03 10/18/1910/18/2022 BMP, serum or plasm a tCO2 25 Not Available Main - Ins [address], [address], 10/18/2022 23:20:03 12/12/19 23 12/11/2022 BMP, serum or plasm a BUN 11 Not Available Main - [facility] [address], [address], 12/11/2022 17:06:59 12/12/19 23 12/11/2022 BMP, serum or plasm a Ca I az 1.26 Not Available Main - Inst [address], [address], 12/11/2022 17:06:59 12/12/19 23 12/11/2022 BMP, serum or plasm a CI- 106 Not Available Main - [facility] [address], [address], 12/11/2022 17:06:59 12/12/19 23 12/11/2022 BMP, serum or plasm a CRE 0.6 Not Available Main - [facility] [address], [address], 12/11/2022 17:06:59 12/12/19 23 12/11/2022 BMP, serum or plasm a GLU 146 Not Available Main - [facility] [address], [address], 12/11/2022 17:06:59 12/12/19 23 12/11/2022 BMP, serum or plasm a K+ 3.9 Not Available Main - [facility] [address], [address], 12/11/2022 17:06:59 12/12/19 23 12/11/2022 BMP, serum or plasm a Na+ 140 Not Available Main - [facility] [address], [address], 12/11/2022 17:06:59 12/12/1912/11/2022 BMP, serum or plasm a tCO2 19 Not Available Main - [facility] [address], [address], 12/11/2022 17:06:59 05/06/2005/06/2023 rapid flu (A+B) Flu negati ve Not Available [facility] - [facility] [address] [place] [address], [address], 05/06/2023 12:56:53 05/06/2005/06/2023 rapid SARS CoV 2 Ag, QL IA, respi rator y speci men rapid SARS CoV 2 Ag, QL IA, respiratory specimen negati ve Not Available [facility] - [facility] [address] [place] [address], [address], 05/06/2023 12:56:51 05/07/2005/07/2023 BMP, serum or plasm a BUN 14 Not Available Main - [facility] [address], [address], 05/06/2023 12:56:14 05/07/2005/07/2023 BMP, serum or plasm a Ca I AZ 5(nl) Not Available Main - [facility] [address] [place] [address], [address], 05/06/2023 12:56:14 05/07/2005/07/2023 BMP, serum or plasm a CI- 103 Not Available Main - Ins [address], [address], 05/06/2023 12:56:14 05/07/2005/07/2023 BMP, serum or plasm a CRE 0.54 Not Available Main - Ins [address], [address], 05/06/2023 12:56:14 05/07/20 23 05/07/2023 BMP, serum or plasm a GLU 163 Not Available Main - Ins [address], [address], 05/06/2023 12:56:14 05/07/20 23 05/07/2023 BMP, serum or plasm a K+ 4.5 Not Available Main - [facility] [address], [address], 05/06/2023 12:56:14 05/07/20 23 05/07/2023 BMP, serum or plasm a Na+ 139 Not Available Main - [facility] [address], [address], 05/06/2023 12:56:14 05/07/20 23 05/07/2023 BMP, serum or plasm a tCO2 23 Not Available Main - [facility] [address], [address], 05/06/2023 12:56:14 Result Notes None recorded. Medical Equipment None Reported. Allergies Allergen ID Allergen Name Allergen Category Reaction Reaction Severity Criticality Documentation Date Start Date Code Code System Note Provider Name and Address Organization Details Recorded Time 1957 Product containin g angiotens in-conver ting enzyme inhibitor (product) medicatio n cough Not available Not available 10/18/2022 76794 009 SNOMED Ale Mendoza MD [address] [place] [address],[address], [place], [address], [employer] 3 22:57:07 1958 Bactrim medicatio n Not available Not available Not available 10/18/2022 64573 9 RxNorm Ale Mendoza MD [address] [place] [address],[address], [place], [address], [employer] 3 22:57:21 1959 Product containin g penicilli n and antibioti c (product) medicatio n Not available Not available Not available 10/18/2022 85453 05 SNOMED Not Available [facility] - production [...] Available No t Available [employer] [address] [place] USE TO TEST BLOOD SUGAR THREE TIMES DAILY AND NEEDED active Not Available Not Available No t Available Vitals Date Recorded Body weight Respiratory rate Heart rate Body height Body temperature Oxygen saturation Oxygen saturation in Arterial blood by Pulse oximetry Systolic blood pressure Diastolic blood pressure Provider Name and Address Organization Details Last Updated DateTime 3 31572.6 4 g 16 /min 94 /min 162.56 [...] mm[Hg] 148 mm[Hg] 82 mm[Hg] Not Available [employer] 3 12:02:20 Date Recorded Body weight Provider Name an d Address Organization Details Last Updated DateTime 10/18/2022 25488.22 g Kristy Acosta [address] [place] [address],[address], [place], [address], [place] - [employer] [facility] 10/18/2022 23:07:43 Date Recorded Respiratory rate Body [...] 3 18 /min 98.6 [degF] 100 /min 37182.8 g 98 % 98 % 157.48 cm 98.6 [degF] 13729.8 g 100 /min 18 /min 157.48 cm 98 % 98 % 135 mm[Hg] 87 mm[Hg] 135 mm[Hg] 87 mm[Hg] Not Available [employer] 3 13:15:40 Social History None recorded. Functional [...] Note 7998 [facility] [address] [place] [address] 10/18/2022 11:17:31 10/21/2022 09:40:55 Gastroenteritis 87652745 K52.9 w/ GERD- advised BRAT/ bland diet- [...] 9573 Ale Mendoza MD Main - [facility] [address] [place] [address] 12/11/2022 11:50:55 12/13/2022 09:41:45 Abdominal pain 26778963 R10.9 w/ n/v/d- advised to hold the [...] lo threshold for going to the ED [address] Ale Mendoza MD Main - [facility] [address] [place] [address] 05/06/2023 12:51:33 05/07/2023 11:54:31 Abdominal pain 63765240 R10.9 w/ n/v/d- significan t abd distention and very elevated lactate- although remainder labs nl/ vss - concern for SBO/ risk for perforatio n/ intra-abdo bhanu infection/ early sepsis- advised needs imaging and further emergent eval / treatment in the ED- patient agreeable- report called to [facility]. [facility] medic arrived for EMS so [facility] medic rode in to continue IVF en route to the ER. Health Concerns Section Related Observation LastModified by Organization Detai ls LastModified Time None Recorded Concern Status LastModified by Organization Details LastModified Time None Recorded Advance Directives Directive None Recorded Payers Encounter Date Sequence Insurance Name Policy Number Policy Javier Covered Member ID Javier Member ID Guarantor Name 10/18/2022 1 [facility] - DOS PRIOR TO 2022 - DUAL ELIGIBLE (MEDICARE REPLACEMENT/ADV ANTAGE - HMO) Jacki Baker [id number] Jacki Baker 12/11/2022 1 [facility] - DOS PRIOR TO 2022 - DUAL ELIGIBLE (MEDICARE REPLACEMENT/ADV ANTAGE - HMO) Jacki Baker [id number] Jacki Baker 05/06/2023 1 [facility] - DOS ON OR AFTER 2022 - DUAL ELIGIBLE - RESIDENTIAL OPTIONS AND ONE CARE (MEDICARE REPLACEMENT/ADV ANTAGE - HMO) Jacki Baker [id number] Jacki Baker Notes Date Note Type Note [...] ..................... ..................... ..................... ..................... ..................... ..................... ............... Bat Carrier Note From Hauglie, Elias: PT c/o n/v/d [...] and given 15mg Toradol ordered and given Bat Carrier Allergies: Aspirin, Omeprazole, Penicillin ..................... ..................... ..................... [...] with these spells. Ale Mendoza MD [address] [facility],[address], [place], [address], [facility] - [employer] 10/18/2022 23:36:31 12/11/2022 text/html HPI: Call to [...] ..................... ..................... ..................... ..................... ..................... ..................... ............... Bat Carrier Note From Steve Lozoya: Pt answers door, [...] zofran 4mg IV ? 2 BMP to [facility] via portal. Pt advised by [facility] to stop taking antibiotics until she can talk to her PCP, eat only BRAT diet (explained) and drink clear liquids. Red flags and pt education discussed. Bat Carrier Allergies: Aspirin, Omeprazole, Penicillin, Trimethoprim-Sulfamet hoxazole ..................... [...] denies UTi s/s Ale Mendoza MD [address] [facility],[address], [place], [address], [employer] 12/11/2022 17:10:18 05/06/2023 text/html HPI: Vomiting and wants to make sure she is not dehydrated>has been experiencing symptoms for about 3 days. ..................... ..................... ..................... ..................... ..................... ..................... ............... CRC Nursing Assessment: Comments: Requestor unable to give additional details. ..................... ..................... ..................... ..................... ..................... ..................... ............... Bat Carrier Note From Silvano Garcia: Pt reports n/v/d for three days. Pt denies CP, SOB, fevers, chills, hematochezia, hematemesis. Pt is alert, NAD. VSS. Afebrile. Neuro exam and gait normal. Lungs CTA. ABD is distended and tender in epigastric region. + BS x4. No LLE. Rapid covid and flu negative. POC BMP lactate 36.2. [facility] contacted and advised pt be seen in ED. 911 initiated. Normal saline 500 mg IV and Ondansetron 4 mg IVP administered en route to [facility] ED. [facility] special effects technician maintained all pt care until transfer of care to [facility] RN. [facility] Lab Orders: BMP, serum or plasma: Performed rapid SARS CoV 2 Ag, QL IA, respiratory specimen: Performed rapid flu (A+B): Performed ..................... ..................... ..................... ..................... ..................... ..................... ............... Disposition: Fulfilled Ael Mendoza MD [address] [place] [address],[address], [place], [address], [employer] - [employer] 05/07/2023 10:32:09 OBGyn Episode No OBEpisode recorded.
--- OUTSIDE RECORDS SUMMARY | 2024-10-04 13:40 | XMS_ITS | Encounter Summary ---
Author Organization [employer] Address [address] [facility] [address] [place] [address] Care Team Providers Care Industrial Engineering Analyst Name Role Phone Karen Guthrie MD Primary Care Provider [phone] Reason for Visit * Reason Onset Date Comments Med Refill 09/22/2024 Encounter Details Date Type Department Care Team ([facility] st Contact Info) Description 09/22/2024 Refill [facility] [address] [place] [address] Karen Guthrie MD [address] [place] [address] Social History Tobacco Use Types Packs/Day Years [...] Description 11/05/2024 11:00 AM EDT Office Visit [facility] MED[facility]INE [address] [place] [address] Karen Guthrie MD [address] [place] [address] 01/21/2025 10:00 AM EDT Office Visit [facility] OPT[facility]RY [address] [place], [place] [phone] Robert, Yocasta, OD [address] [place] [address] documented as of this encounter Visit Diagnoses Not on filedocumented in this encounter Additional Health Concerns Assessment Noted Time PHQ-9 Depression Total Score: 14 024 1:04 PM EDT documented as of this encounter Care Teams Industrial Engineering Analyst Relationship Specialty Start Date End Date Karen Guthrie MD [address] [place], [place] [phone] PCP - General Family Medicine 07/15/22 documented as of this encounter
--- OUTSIDE RECORDS SUMMARY | 2024-10-04 13:40 | XMS_ITS | Encounter Summary ---
Author Organization [employer] Address [address] [place] [address] Care Team Providers Care Nutrition Director Name Role Phone Karen Guthrie MD Primary Care Provider [phone] Encounter Details Date Type Department Care Team ([facility] st Contact Info) Description 10/01/2024 Orders Only GENERIC EXTERNAL DATA DEPARTMENT Provider, Generic External Data Social History Tobacco Use Types Packs/Day Years [...] 11:00 AM EDT Office Visit [facility] MED[facility] [address] [place] [address] Karen Guthrie MD [address] [place] [address] 01/21/2025 10:00 AM EDT Office Visit [facility] OPTOMETRY [address] [place] [address] Yocasta Jones, OD [address] [place] [address] documented as of this encounter Procedures Procedure Name Priority Date/Time Associated Diagnosis Comments GLUCOSE, WHOLE BLOOD Routine 10/01/2024 9:19 AM EST documented in this encounter Results * (ABNORMAL) Glucose, Whole Blood (10/01/2024 9:19 AM EST) Glucose, Whole Blood 297(H) 60 - 115 mg/dL [facility] Comment:METER #: [id number] 5Testing performed in the Endocrinology Department [address] , [address], [facility]. 10/01/2024 9:19 AM EST 10/01/2024 9:27 AM EST us Generic External Data Provider LAB BLOOD ORDERAB LES Final Result [facility] [address] [place] [address] [phone] documented in this encounter Visit Diagnoses Not on filedocumented in this encounter Additional Health Concerns Assessment Noted Time PHQ-9 Depression Total Score: 14 024 1:04 PM EDT documented as of this encounter Care Teams Nutrition Director Relationship Specialty Start Date End Date Karen Guthrie MD [address] [place] [address] PCP - General Family Medicine 07/15/22 documented as of this encounter
--- OUTSIDE RECORDS SUMMARY | 2024-10-04 13:40 | XMS_ITS | Encounter Summary ---
Author Organization [employer] Address [address] [facility] [address] [place] [address] Care Team Providers Care Human Resources Receptionist Name Role Phone Karen Guthrie MD Primary Care Provider [phone] Encounter Details Date Type Department Care Team ([facility] st Contact Info) Description 09/23/2024 Orders Only [facility] MED[facility] [address] [place], [place] [phone] Karen Guthrie MD [address] [place], [place] [phone] Social History Tobacco Use Types Packs/Day Years [...] Description 11/05/2024 11:00 AM EDT Office Visit [facility] [address] [place] [address] Karen Guthrie MD [address] [place] [address] 01/21/2025 10:00 AM EDT Office Visit [facility] OPTOMETRY [address] [place] [address] Robert, Yocasta, OD [address] [place] [address] documented as of this encounter Visit Diagnoses Not on filedocumented in this encounter Additional Health Concerns Assessment Noted Time PHQ-9 Depression Total Score: 14 024 1:04 PM EDT documented as of this encounter Care Teams Human Resources Receptionist Relationship Specialty Start Date End Date Karen Guthrie MD [address] [place] [address] PCP - General Family Medicine 07/15/22 documented as of this encounter
--- OUTSIDE RECORDS SUMMARY | 2024-10-04 13:40 | XMS_ITS | Encounter Summary ---
Author Organization [employer] Address [address] [facility] [address] [place] [address] Care Team Providers Care Bridal Consultant Name Role Phone Karen Guthrie MD Primary Care Provider [phone] Reason for Referral * Imaging (STAT) - Closed Specialty Diagnoses / Procedures Referred By Contac t Referred To Contact Diagnoses LUQ pain Epigastric pain Procedures CT Abdomen Pelvis w/ Contrast Karen Guthrie MD [address] [place] [address] Phone: tel: fax: [facility] [address] [place] [address] Phone: tel: fax: Referral ID Status Reason Start Date Expiration Date Visits Re quested Visits Authorized [id number] Closed 01/02/2023 01/02/2024 1 1 Encounter Details Date Type Department Care Team (Late st Contact Info) Description 01/02/2023 Orders Only [facility] MED[facility]INE [address] [place], [place] [phone] Karen Guthrie MD [address] [place] [address] LUQ pain (Primary Dx); Epigastric [...] 11:00 AM EDT Office Visit [facility] MED[facility] [address] [place] [address] Karen Guthrie MD [address] [place] [address] 01/21/2025 10:00 AM EDT Office Visit [facility] OPTOMETRY [address] [place] [address] Robert, Yocasta, OD [address] [place] [address] Scheduled Orders Name Type Priority Associated Diagnoses Orde r Schedule CT Abdomen Pelvis w/ Contrast Imaging STAT LUQ pain Epigastric pain Expected: 01/02/2023, Expires: 01/03/2024 documented as of this encounter Visit Diagnoses Diagnosis LUQ pain- Primary Abdominal pain, left upper quadrant Epigastric pain Abdominal pain, epigastric documented in this encounter Care Teams Bridal Consultant Relationship Specialty Start Date End Date Karen Guhtrie MD [address] [place] [address] PCP - General Family Medicine 07/15/22 documented as of this encounter
--- OUTSIDE RECORDS SUMMARY | 2024-10-04 13:40 | XMS_ITS | Encounter Summary ---
Author Organization [employer] Address [address] [facility] [address] [place] [address] Care Team Providers Care Digital Media Buyer Name Role Phone Karen Guthrie MD Primary Care Provider [phone] Reason for Visit * Reason Comments Med Refill Encounter Details Date Type Department Care Team ([facility] Contact Info) Description 10/01/2023 Refill [facility] MED[facility]INE [address] [place], [place] [phone] Karen Guthrie MD [address] [place], [place] [phone] Type 2 diabetes mellitus with other specified complication, unspecified whether bed bug exterminator insulin use ([facility]) Social History Tobacco Use Types [...] Description 11/05/2024 11:00 AM EDT Office Visit [facility] MEDICINE [address] [place] [address] Karen Guthrie MD [address] [place] [address] 01/21/2025 10:00 AM EDT Office Visit [facility] OPTOMETRY [address] [place] [address] Robert, Yocasta, OD [address] [place] [address] documented as of this encounter Visit Diagnoses Diagnosis Type 2 diabetes mellitus with other specified complication, unspecified whether intermediate insulin use ([facility]) documented in this encounter Care Teams Digital Media Buyer Relationship Specialty Start Date End Date Karen Guthrie MD [address] [place] [address] PCP - General Family Medicine 07/15/22 documented as of this encounter
--- OUTSIDE RECORDS SUMMARY | 2024-10-04 13:40 | XMS_ITS | Encounter Summary ---
Author Organization [employer] Address [address] [facility] [address] [place] [address] Care Team Providers Care Park Attendant Name Role Phone Karen Guthrie MD Primary Care Provider [phone] Reason for Visit * Reason Onset Date Comments recall 09/10/2024 Encounter Details Date Type Department Care Team ([facility] st Contact Info) Description 09/10/2024 Telephone [facility] MED[facility]INE [address] [place] [address] Morena Sandoval [place] recall Social History Tobacco [...] Description 11/05/2024 11:00 AM EDT Office Visit [facility] MED[facility]INE [address] [place] [address] Karen Guthrie MD [address] [place] [address] 01/21/2025 10:00 AM EDT Office Visit [facility] OPTOMETRY [address] [place] [address] Robert, Yocasta, OD [address] [place] [address] documented as of this encounter Visit Diagnoses Not on filedocumented in this encounter Additional Health Concerns Assessment Noted Time PHQ-9 Depression Total Score: 14 024 1:04 PM EDT documented as of this encounter Care Teams Park Attendant Relationship Specialty Start Date End Date Karen Guthrie MD [address] [place] [address] PCP - General Family Medicine 07/15/22 documented as of this encounter
--- OUTSIDE RECORDS SUMMARY | 2024-10-04 13:40 | XMS_ITS | Encounter Summary ---
Author Organization [facility] [facility] Address [address] [facility] 7t [place] [address] Care Team Providers Care District Manager In Training Name Role Phone Karen Guthrie MD Primary Care Provider [phone] Encounter Details Date Type Department Care Team (Late st Contact Info) Description 04/18/[address] [facility] MEDICINE [address] [place], [place] [phone] Karen Guthrie MD [address] [place], [place] [phone] Social History Tobacco Use Types Packs/Day Years [...] Description 11/05/2024 11:00 AM EDT Office Visit [facility] MED[facility] [address] [place], [place] [phone] Karen Guthrie MD [address] [place], [place] [phone] 01/21/2025 10:00 AM EDT Office Visit [facility] OPTOMETRY [address] [place], [place] [phone] Yocasta Jones, OD [address] [place] [address] documented as of this encounter Visit Diagnoses Not on filedocumented in this encounter Care Teams District Manager In Training Relationship Specialty Start Date End Date Karen Guthrie MD [address] [place], [place] [phone] PCP - General Family Medicine 07/15/22 documented as of this encounter
--- OUTSIDE RECORDS SUMMARY | 2024-10-04 13:41 | XMS_ITS | Encounter Summary ---
Author Organization [facility] Address [address] [facility] [address] [place] [address] Care Team Providers Care Executive Sous Chef Name Role Phone Karen Guthrie MD Primary Care Provider [phone] Encounter Details Date Type Department Care Team (Late Contact Info) Description 12/16/2022 Orders Only [facility] MED[facility]INE [address] [place] [phone] Karen Guthrie MD [address] [place] [phone] Epigastric pain (Primary Dx) Social History Tobacco [...] Office Visit [facility] MEDICINE [address] [place] [address] [phone] Karen Guthrie MD [address] [place] [address] 01/21/2025 10:00 AM EDT Office Visit [facility] OPTOMETRY [address] [place] [address] RobertYocasta king, OD [address] [facility] [address] documented as of this encounter Procedures Procedure Name Priority Date/Time Associated Diagnosis Comments GLUCOSE, WHOLE BLOOD Routine 01/01/2023 10:57 AM EDT Epigastric pain GLUCOSE, WHOLE BLOOD Routine 01/01/2023 10:32 AM EDT Epigastric pain documented in this encounter Results * Glucose, Whole Blood (01/01/2023 10:57 AM EDT) Glucose, Whole Blood 95 60 - 115 mg/dL [facility] Comment:METER #: [id number] Testing performed in the Endocrinology Department [address] , [address], [place]. 01/01/2023 10:5 7 AM EDT 01/01/2023 11:05 AM EDT [facility] External Provider LAB BLO OD ORDERABLES Final Result [facility] [address] [place] [phone] * Glucose, Whole Blood (01/01/2023 10:32 AM EDT) Glucose, Whole Blood 60 60 - 115 mg/dL [facility] Comment:METER #: [id number] 5Testing performed in the Endocrinology Department [address] , [address], [place]. 01/01/2023 10:3 2 AM EDT 01/01/2023 10:38 AM EDT [facility] External Provider LAB BLO OD ORDERABLES Final Result [facility] [address] [place] [address] [phone] documented in this encounter Visit Diagnoses Diagnosis Epigastric pain- Primary Abdominal pain, epigastric documented in this encounter Care Teams Executive Sous Chef Relationship Specialty Start Date End Date Karen Guthrie MD [address] [place] [phone] PCP - General Family Medicine 07/15/22 documented as of this encounter
--- OUTSIDE RECORDS SUMMARY | 2024-10-04 13:41 | XMS_ITS | Clinical Summary ---
Author Organization [employer] Address [address] [facility] 7[address] [place] [address] Care Team Providers Care Outlet Manager Name Role Phone Karen Guthrie MD Primary Care Provider [phone] Allergies Active Allergy Reactions Criticality Noted Date [...] at bedtime. 023 Active Continuous Blood Gluc Top Former ([employer] Khalif 2 [place]) device USE TO TEST BLOOD SUGAR THREE TIMES DAILY AND NEEDED 1 each 023 Active benztropine (Cogentin) 0.5 MG tablet Take 0.5 mg by mouth at bedtime. 023 Active NovoLOG FLEXPEN 100 UNIT/ML penIndications:T ype 2 diabetes mellitus with other specified complication, with long-term current use of insulin ([facility]) INJECT 12 UNITS SUBCUTANEOUSLY WITH BREAKFAST, INJECT [...] mellitus with other specified complication, unspecified whether usp insulin use ([facility]) TEST BLOOD SUGAR 4 TO 6 TIMES PER DAY 100 strip 5 024 Active insulin pen needle (Pentips) 32G x 4 mm miscIndications: Type 2 diabetes mellitus with other specified complication, unspecified whether acid purifier insulin use ([facility]) USE DIRECTED TO INJECT DAILY 100 each 5 024 Active Tresiba FlexTouch 200 UNIT/ML injection INJECT 85 UNITS SUBCUTANEOUSLY ONCE DAILY 18 mL 3 10/09/2 024 Active TRUEplus Lancets 33G [facility] USE DIRECTED TO TEST BLOOD SUGAR 4 [...] associated wi th type 2 diabetes mellitus ([facility]/H[facility]) 12/18/2018 Recurrent major depression in partial remission 11/17/2018 Diarrhea 09/18/2018 Volume depletion 09/18/2018 Vomiting 09/18/2018 Gastroenteritis 07/02/2018 Memory impairment 07/02/2018 Cough due to HERMILO inhibitor 05/18/2018 Foot callus 05/18/2018 Tubular adenoma of colon 05/18/2018 Assessment & Plan (09/22/2023 9:52 AM EST): Call GI to schedule Assessment & Plan (05/21/2023 5:57 AM EDT): Re-refer to GI, supposed to repeat Cscope in 2020 at [facility] Did not get scheduled, overdue In the [...] Encounters Date Type Department Care Team Description 10/01/2024 Orders Only GENERIC EXTERNAL DATA DEPARTMENT Provider, Generic External Data 09/23/2024 Orders Only [facility] MEDICINE [address] [place] [address] Karen Guthrie MD 09/22/2024 Refill [facility] [address] [place] [address] Karen Guthrie MD 09/10/2024 Telephone [facility] [address] [place] [address] Morena Sandoval [place] recall 07/12/2024 Refill [facility] [address] [place] [address] Karen Guthrie MD Essential hypertension 07/07/2024 Orders Only [facility] External Provider, [facility] 07/05/2024 Refill [facility] [address] [place] [address] Karen Guthrie MD Hyperlipidemia, unspecified hyperlipidemia type [...] 12+ 01/08/2022 Pfizer Covid-19 Vaccine 12+ 05/27/2024, Pneumococcal Conjugate PCV 20 04/02/2022 Pneumococcal Polysaccharide [...] Description 11/05/2024 11:00 AM EDT Office Visit [facility] MEDICINE [address] [place] [address] Karen Guthrie MD [address] [place] [address] 01/21/2025 10:00 AM EDT Office Visit [facility] OPTOMETRY [address] [place] [address] Robert, Yocasta, OD [address] [place] [address] Health Maintenance Due Date Last Done Comments [...] WHOLE BLOOD Routine 10/01/2024 9:19 AM EST BI MAMMOGRAM DIAGNOSTIC LEFT Routine 07/29/2024 1:30 PM EST US ABDOMEN GARG W ELASTOGRAPHY Routine 07/07/2024 9:41 AM EST POCT GLYCATED HEMOGLOBIN, TOTAL Routine 12/19/2023 1:07 PM EDT Type 2 diabetes mellitus with other specified complication, unspecified whether usp insulin use (CMS/HCC) ALBUMIN, RANDOM URINE W/CREATININE Routine 09/22/2023 9:54 AM EST Type 2 diabetes mellitus with other specified complication, unspecified whether usp insulin use (CMS/HCC) LIPID PANEL, STANDARD Routine 09/22/2023 9:51 AM EST Type 2 diabetes mellitus with other specified complication, unspecified whether acid purifier insulin use (CMS/HCC) HM FIT DNA/COLOGUARD CANCER SCREENING Routine 04/02/2023 from Last 3 Months or Most Recently Relevant to Health Maintenance Results * (ABNORMAL) Glucose, Whole Blood (10/01/2024 9:19 AM EST) Glucose, Whole Blood 297(H) 60 - 115 mg/dL [facility] Comment:METER #: [id number] 5Testing performed in the Endocrinology Department [address] , [address], [facility]. 10/01/2024 9:19 AM EST 10/01/2024 9:27 AM EST us Generic External Data Provider LAB BLOOD ORDERAB LES Final Result [facility] [address] [place], [place] [phone] * BI Mammogram Diagnostic Left (07/29/2024 1:30 PM EST) Anatomical Region Laterality Modality Breast Left Mammography 07/29/2024 1:30 PM EST Narrative 07/29/2024 2:05 PM EST ? [facility] ? [address] ?[place] [address] ? Mammography Report ? Signed ? Patient: Baker,Jacki I ?MR#: [id number] ?? [id number] ? : 1955 ?Acct:[id number] ? Age/Sex: 68 / F ?ADM Date: 07/29/24 ? Loc: HO.MAMMO ? Attending Dr: Karen Guthrie MD ? Ordering Physician: Karen Guthrie ?Results: 3.6MProba ?? yusra Benign Finding - Short 6 M F/U Suggested ? Date of Service: 07/29/24 ?Follow Up: 6 Month F/U ? Procedure(s): MM diagnostic mammo unilat LT ?? Accession Number(s): [id number] ? cc: Karen Guthrie ? EXAMINATION: ?? [...] ??Susana Garcia DO ??07/29/2024 02:02 PM EST ? Dictated By: ?Susana Garcia DO ? Signed By: ?<Electronically signed by Susana Garcia, DO in OV> ? 07/29/24 1402 ? DD/ 1330 ? TD/TT: 07/29/24 1355 ? Extracorporeal Technician: ? Procedure Note Herson Dangelo - 07/29/2024 [facility] [address] Schmidt, [place] [address] Mammography Report Signed Patient: Jacki Baker [facility]#: [id number] : 7Acct:[id number] Age/Sex: 68 / FADM Date: 07/29/24 Loc: HO.MAMMO Attending Dr: Karen Guthrie MD Ordering Physician: Brett Guthrieults: 3.6MProba yusra Benign Finding - Short 6 M F/U Suggested Date of Service: 07/29/24Follow Up: 6 Month F/U Procedure(s): MM diagnostic mammo unilat Accession Number(s): [id number] cc: Karen Guthrie EXAMINATION: MM DIAGNOSTIC DIGITAL [...] Susana Garcia DO 07/29/2024 02:02 PM EST Dictated By: Susana Garcia DO Signed By: <Electronically signed by Susana Garcia DO in OV> 07/29/24 1402 DD/ 1330 TD/TT: 07/29/24 1355 Extracorporeal Technician: us Karen Guthrie MD IMG BI PROCEDURES Edited Resul t - Final * US ABDOMEN GARG W ELASTOGRAPHY (07/07/2024 9:41 AM EST) Anatomical Region Laterality Modality Abdomen Ultrasound 07/07/2024 9:41 AM EST Narrative 09/03/2024 4:22 PM EST ? [facility] ?[address] ?[place] [address] ? Ultrasound Report ? Signed ? Patient: Baker,Jacki I ?MR#: [id number] ?? [id number] ? : 1955 ?Acct:[id number] ? Age/Sex: 68 / F ?ADM Date: 11/13/24 ? Loc: HO.US ? Attending Dr: Yuliya Clayton NP ? Ordering Physician: Yuliya Clayton NP ?? Date of Service: 07/07/24 ?? Procedure(s): US abdomen garg w elastography ?? Accession Number(s): [id number] ? cc: Karen Guthrie; Yuliya Clayton NP ? EXAMINATION: ?? US ABDOMEN LIMITED WITH LIVER ELASTOGRAPHY ? CLINICAL INFORMATION: ?? Fatty liver ? COMPARISON: ?? Ultrasound abdomen 11/24/2023 ? TECHNIQUE: ?? Real-time imaging of the abdominal viscera. Noninvasive ultrasound ?? liver fibrosis assessment is performed using ClasesDPQ point ?? quantification shear wave elastography (pSWE) [...] ??Julien Reynoso MD ??09/03/2024 04:19 PM EST ? Dictated By: ?Julien Reynoso MD ? Signed By: ?<Electronically signed by Julien Reynoso MD in OV> ? /06/18 1619 ? DD/ 0941 ? TD/TT: 07/07/24 1013 ? Extracorporeal Technician: SS ? Procedure Note Donotuseinterpreter, Image - 09/03/[address] [address] Ultrasound Report Signed Patient: Jacki Baker IMR#: [id number] : 7Acct:[id number] Age/Sex: 68 / FADM Date: 07/07/24 Loc: HO.US Attending Dr: Yuliya Clayton NP Ordering Physician: Yuliya Clayton NP Date of Service: 07/07/24 Procedure(s): US abdomen garg w elastography Accession Number(s): [id number] cc: Karen Guthrie; Yuliya Clayton NP EXAMINATION: [...] 09/03/24 1619 DD/ 0941 TD/TT: 07/07/24 1013 Extracorporeal Technician: SS [facility] External Provider IMG US PROCEDURES Final Result * (ABNORMAL) POCT HGB A1C (12/19/2023 1:07 PM EDT) Pathologist [facility] Hemoglobin A1C 9.9(A) 4.0 - 6.0 % QC Media Lot # [id number] Lot# Expiration Date [id number] Blood 12/19/2023 1:07 PM EDT Karen Guthrie MD POINT OF CARE TEST ENTER/EDIT ORDERABLES Final Result * (ABNORMAL) Albumin, Random Urine W/Creatinine (09/22/2023 9:54 AM EST) Creatinine, Urine 228.61 mg/dL [facility] Microalbumin Urine 1,362.0 mg/L [facility] Microalbum Creatinine Ratio Ur 595.7(H) <30 ug/mg cr [facility] Comment:Albumin/Creatinine R atio Reference Ranges: Normal: < 30 ug/mg creatinine Microalbuminuria: 30 - 300 ug/mg creatinineClinical Albuminuria: > 300 ug/mg creatinine Urine (Urine, Random) 09/22/2023 9:54 AM EST 09/22/2023 11:03 AM EST Karen Guthrie MD LAB URINE ORDERABLES Final Res ult Performing Organization Address [facility] de Phone Number [facility] [address] [place] [phone] * (ABNORMAL) Lipid Panel, Standard (09/22/2023 9:51 AM EST) Triglycerides 197(H) <150 mg/dL [facility] Comment:Desirable Triglyceri de: less than 150 mg/dLBorderline High Triglyceride 150-199 mg/dLHigh Triglyceride: 200-499 mg/dLVery High Triglyceride: greater than or equal to 5OO mg/dL Cholesterol 130 <200 mg/dL [facility] Comment:Desirable Cholestero l: less than 200 mg/dLBorderline High Cholesterol: 200-239 mg/dLHigh Cholesterol: greater than 239 mg/dL LDL Cholesterol Calculated 46 <100 mg/dL [facility] Comment:Desirable LDL: less than 100 mg/dLNear Optimal/Above Optimal LDL: 110- 129 mg/dLBorderline High LDL: 130-159 mg/dLHigh LDL: 160-189 mg/dLVery High LDL: greater than or equal to 190 mg/dL HDL Cholesterol 45 >40 mg/dL [facility] Comment:Desirable HDL: great er than 40 mg/dL Note: This HDL assay may give artificially low results in patients with liver disease. Blood Venous blood specimen / Unknown 09/22/2023 9:51 AM EST 09/22/2023 11:18 AM EST Karen Guthrie MD LAB BLOOD ORDERABLES Final Res ult Performing Organization Address [facility] Co de Phone Number [facility] [address] [place] [phone] * FIT DNA/Cologuard Cancer Screening (04/02/2023) Cologuard Cancer Screen Negative Stool Karen Guthrie MD HEALTH MAINTENANCE Final Resul t from Last 3 Months or Most Recently Relevant to Health Maintenance Insurance [facility] Care Teams Outlet Manager Relationship Specialty Start Date End Date Karen Guthrie MD [address] [place] [address] PCP - General Family Medicine 07/15/22
[2024-10-04 15:00] LABS: Glucose, Whole Blood 175 mg/dL (60-115)
[2024-10-04 15:19] VITALS: BP 160/79; PULSE 77; RESP 18; TEMP 36.9; O2SAT 97
[2024-10-04 15:20] VITALS: BP 160/79; PULSE 77; RESP 18; TEMP 36.9; O2SAT 97
== END 2024-10-04 15:21 | disposition home or self-care (01) ==
PROVIDERS: Emergency Provider Emergency Medicine
DX: E11.65 Type 2 diabetes mellitus with hyperglycemia (principal); I10 Essential (primary) hypertension; Z79.4 Long term (current) use of insulin
CPT/HCPCS: 36415; 80048; 82010; 82803; 82947; 83735; 85025; 96360; 96361; 99284; J7120

== ENCOUNTER 2024-11-05 10:55 | Outpatient (REF) | payer OTHER, SELFPAY ==
--- OUTSIDE RECORDS SUMMARY | 2024-11-05 12:34 | XMS_ITS | Data Portability ---
Author Organization [employer] [place] in - [facility] Address [address] [place] [phone] Care Team Providers Care Echocardiography Technologist Name Role Phone [facility] Referring Provider YASEMIN LAMBERT Primary Care Provider Assessment Encounter Date Assessment Date Assessment LastModified by Organization Details LastModified Time 10/18/2022 10/18/2022 I provided real -time medical direction via phone for this encounter, and was available for additional phone based assistance as needed. I have reviewed and agree with the Assessment and Plan as documented by the Splicer Operator. Patient given the opportunity to ask questions. [email or web address] Not available 10/18/2022 23:13:30 12/11/2022 12/11/2022 I provided real -time medical direction via phone for this encounter, and was available for additional phone based assistance as needed. I have reviewed and agree with the Assessment and Plan as documented by the Splicer Operator. Patient given the opportunity to ask questions. Advised if develops CP/severe SOB/ increased abd pain/uncontrolle d n/v/d or black/bloody emesis or stool/ AMS/ syncope/ hi fever to call 911- verbalized understanding of instructions [email or web address] Not available 12/11/2022 16:54:21 05/06/2023 05/06/2023 I provided real -time medical direction via phone for this encounter, and was available for additional phone based assistance as needed. I have reviewed the Assessment and Plan as documented by the Splicer Operator. Patient given the opportunity to ask questions. [email or web address] Not available 05/07/2023 10:28:45 Plan of Treatment Reminders Order Date Submit Date Provider Last Modified By Organization Details Last Modified Time Details Appointments None recorded. Lab BMP, serum or plasma 2022 023 [email or web address] 0 [facility], [address] [place] [address], [id number], 3 10:28:26 rapid SARS CoV 2 Ag, QL IA, respiratory specimen 2022 023 [email or web address] 0 [facility], [address] [place] [address], [address], 3 10:28:26 rapid flu (A+B) 2022 023 [email or web address] 0 [facility], [address] [place] [address], [address], 3 10:28:26 BMP, serum or plasma 2022 023 [email or web address] 0 [facility], [address] [place] [address], [address], 3 17:09:27 urinalysis, dipstick 2022 023 [email or web address] 0 [facility], [address] [place] [address], [address], 3 23:34:46 BMP, serum or plasma 2022 023 [email or web address] 0 [facility], [address] [place] [address], [address], 3 23:34:46 Referral None recorded. Procedures None recorded. Surgeries None recorded. Imaging None recorded. Medication Orders sodium chloride 0.9 % intravenous solution 2022 023 [email or web address] 0 [facility], [address] [place] [address], [id number], 3 10:28:26 ondansetron HCl (PF) 4 mg/2 mL injection solution 2022 023 [email or web address] 0 [facility], [address] [place] [address], [id number], 3 10:28:26 ondansetron 4 mg disintegrat ing tablet 2022 023 [facility], [address] [place] [address], [id number], 3 17:01:14 sodium chloride 0.9 % intravenous solution 2022 023 [email or web address] 0 [facility], [address] [place] [address], [id number], 3 17:09:27 ondansetron HCl (PF) 4 mg/2 mL injection solution 2022 023 [email or web address] 0 [facility], [address] [place] [address], [id number], 3 17:09:27 sodium chloride 0.9 % intravenous solution 2022 023 [email or web address] 0 Not available 23:34:46 Patient TargetsNo targets recorded. Patient InstructionsNo instructions recorded. Reason for Referral None Reported. Results Created Date Observation Date Name Description Value Unit Range Abnormal Flag Note LastModifiedBy Organization Detail LastModifiedTime 10/18/1910/18/2022 urina lysis , dipst ick Leukocytes neg Not Available [facility] [address] [place] [address], [address], 10/18/2022 23:20:01 10/18/19 23 10/18/2022 urina lysis , dipst ick Nitrite negati ve Not Available [facility] [address] [place] [address], [address], 10/18/2022 23:20:01 10/18/19 23 10/18/2022 urina lysis , dipst ick Urobilinogen neg Not Available [facility] [address] [place] [address], [address], 10/18/2022 23:20:01 10/18/19 23 10/18/2022 urina lysis , dipst ick Protein neg Not Available [facility] - [facility] [address] [place] [address], [address], 10/18/2022 23:20:01 10/18/19 23 10/18/2022 urina lysis , dipst ick pH 6.5 Not Available Main - [facility] [address], [address], 10/18/2022 23:20:01 10/18/19 23 10/18/2022 urina lysis , dipst ick Blood neg Not Available [facility] [address] [place] [address], [address], 10/18/2022 23:20:01 10/18/19 23 10/18/2022 urina lysis , dipst ick Specific [place] 1;025 Not Available [facility] [address] [place] [address], [address], 10/18/2022 23:20:01 10/18/19 23 10/18/2022 urina lysis , dipst ick Ketone trace Not Available Main - [facility] [address], [address], 10/18/2022 23:20:01 10/18/19 23 10/18/2022 urina lysis , dipst ick Bilirubin trace Not Available Main - [facility] [address] [place] [address], [address], 10/18/2022 23:20:01 10/18/19 23 10/18/2022 urina lysis , dipst ick Glucose negati ve Not Available [facility] [address] [place] [address], [address], 10/18/2022 23:20:01 10/18/19 23 10/18/2022 urina lysis , dipst ick Appearance clear Not Available [facility] [address] [place] [address], [address], 10/18/2022 23:20:01 10/18/19 23 10/18/2022 urina lysis , dipst ick Color yelllo w Not Available [facility] [address] [place] [address], [address], 10/18/2022 23:20:01 10/18/19 23 10/18/2022 BMP, serum or plasm a BUN 8 Not Available Main - [facility] [address], [address], 10/18/2022 23:20:03 10/18/19 23 10/18/2022 BMP, serum or plasm a Ca I az = 1.21 Not Available [facility] [address] [place] [address], [address], 10/18/2022 23:20:03 10/18/19 23 10/18/2022 BMP, serum or plasm a CI- 102 Not Available Main - [facility] [address], [address], 10/18/2022 23:20:03 10/18/19 23 10/18/2022 BMP, serum or plasm a CRE 0.5 Not Available Main - [facility] [address], [address], 10/18/2022 23:20:03 10/18/19 23 10/18/2022 BMP, serum or plasm a GLU 100 Not Available Main - [facility] [address], [address], 10/18/2022 23:20:03 10/18/19 23 10/18/2022 BMP, serum or plasm a K+ 4 Not Available Main - [facility] [address], [address], 10/18/2022 23:20:03 10/18/19 23 10/18/2022 BMP, serum or plasm a Na+ 138 Not Available Main - [facility] [address], [address], 10/18/2022 23:20:03 10/18/1910/18/2022 BMP, serum or plasm a tCO2 25 Not Available Main - [facility] [address], [address], 10/18/2022 23:20:03 12/12/19 23 12/11/2022 BMP, serum or plasm a BUN 11 Not Available [facility] - [facility] [address], [address], 12/11/2022 17:06:59 12/12/19 23 12/11/2022 BMP, serum or plasm a Ca I az 1.26 Not Available Main - [facility] [address], [address], 12/11/2022 17:06:59 12/12/19 23 12/11/2022 BMP, serum or plasm a CI- 106 Not Available Main - [facility] [address], [address], 12/11/2022 17:06:59 12/12/19 23 12/11/2022 BMP, serum or plasm a CRE 0.6 Not Available Main - [facility] [address], [address], 12/11/2022 17:06:59 12/12/19 23 12/11/2022 BMP, serum or plasm a GLU 146 Not Available Main - [facility] [address], [address], 12/11/2022 17:06:59 12/12/19 23 12/11/2022 BMP, serum or plasm a K+ 3.9 Not Available Main - [facility] [address], [address], 12/11/2022 17:06:59 12/12/19 23 12/11/2022 BMP, serum or plasm a Na+ 140 Not Available Main - [facility] [address], [address], 12/11/2022 17:06:59 12/12/1912/11/2022 BMP, serum or plasm a tCO2 19 Not Available [facility] - [facility] [address], [address], 12/11/2022 17:06:59 05/06/2005/06/2023 rapid flu (A+B) Flu negati ve Not Available [facility] [address] [place] [address], [address], 05/06/2023 12:56:53 05/06/2005/06/2023 rapid SARS CoV 2 Ag, QL IA, respi rator y speci men rapid SARS CoV 2 Ag, QL IA, respiratory specimen negati ve Not Available [facility] [address] [place] [address], [address], 05/06/2023 12:56:51 05/07/2005/07/2023 BMP, serum or plasm a BUN 14 Not Available Main - [facility] [address], [address], 05/06/2023 12:56:14 05/07/2005/07/2023 BMP, serum or plasm a Ca I AZ 5(nl) Not Available [facility] [address] [place] [address], [address], 05/06/2023 12:56:14 05/07/2005/07/2023 BMP, serum or plasm a CI- 103 Not Available Main - [facility] [address], [address], 05/06/2023 12:56:14 05/07/2005/07/2023 BMP, serum or plasm a CRE 0.54 Not Available [facility] - [facility] [address], [address], 05/06/2023 12:56:14 05/07/20 23 05/07/2023 BMP, serum or plasm a GLU 163 Not Available Main - [facility] [address], [address], 05/06/2023 12:56:14 05/07/20 23 05/07/2023 BMP, serum or plasm a K+ 4.5 Not Available Main - [facility] [address], [address], 05/06/2023 12:56:14 05/07/20 23 05/07/2023 BMP, serum or plasm a Na+ 139 Not Available Main - [facility] [address], [address], 05/06/2023 12:56:14 05/07/20 23 05/07/2023 BMP, serum or plasm a tCO2 23 Not Available Main - [facility] [address], [address], 05/06/2023 12:56:14 Result Notes None recorded. Medical Equipment None Reported. Allergies Allergen ID Allergen Name Allergen Category Reaction Reaction Severity Criticality Documentation Date Start Date Code Code System Note Provider Name and Address Organization Details Recorded Time 1956 Product containin g angiotens in-conver ting enzyme inhibitor (product) medicatio n cough Not available Not available 10/18/2022 02923 009 SNOMED Ale Mendoza MD [address] [place] [address],[address], [place], [place], [phone], [employer] 3 22:57:07 1958 Bactrim medicatio n Not available Not available Not available 10/18/2022 01307 9 RxNorm Ale Mendoza MD [address] [place] [address],[address], [place], [address], [facility] 3 22:57:21 1959 Product containin g penicilli n (product) medicatio n Not available Not available Not available 10/18/2022 18032 8001 SNOMED Not Available [facility] - production 4 [...] Available No t Available [employer] Khalif 2 Dix USE TO TEST BLOOD SUGAR THREE TIMES DAILY AND NEEDED active Not Available Not Available No t Available Vitals Date Recorded Body weight Respiratory rate Heart rate Body height Body temperature Oxygen saturation Oxygen saturation in Arterial blood by Pulse oximetry Systolic blood pressure Diastolic blood pressure Provider Name and Address Organization Details Last Updated DateTime 3 35006.6 4 g 16 /min 94 /min 162.56 [...] mm[Hg] 148 mm[Hg] 82 mm[Hg] Not Available [employer] 3 12:02:20 Date Recorded Body weight Provider Name an d Address Organization Details Last Updated DateTime 10/18/2022 10841.22 g Kristy Acosta [address] [place] [address],[address], [place], [address], [place] - [employer] 10/18/2022 23:07:43 Date Recorded Respiratory rate Body [...] 3 18 /min 98.6 [degF] 100 /min 80341.8 g 98 % 98 % 157.48 cm 98.6 [degF] 49642.8 g 100 /min 18 /min 157.48 cm 98 % 98 % 135 mm[Hg] 87 mm[Hg] 135 mm[Hg] 87 mm[Hg] Not Available [employer] 3 13:15:40 Social History None recorded. Functional [...] Note 7998 [facility] [address] [place] [address] 10/18/2022 11:17:31 10/21/2022 09:40:55 Gastroenteritis 69136941 K52.9 w/ GERD- advised BRAT/ bland diet- [...] 9573 Ale Mendoza MD Main - [facility] [address] [place] [address] 12/11/2022 11:50:55 12/13/2022 09:41:45 Abdominal pain 63245459 R10.9 w/ n/v/d- advised to hold the [...] lo threshold for going to the ED [address] Ale Mendoza MD Main - [facility] [address] [place] [address] 05/06/2023 12:51:33 05/07/2023 11:54:31 Abdominal pain 06037942 R10.9 w/ n/v/d- significan t abd distention and very elevated lactate- although remainder labs nl/ vss - concern for SBO/ risk for perforatio n/ intra-abdo bhanu infection/ early sepsis- advised needs imaging and further emergent eval / treatment in the ED- patient agreeable- report called to [place] [facility]. [facility] medic arrived for EMS so [facility] medic rode in to continue IVF en route to the ER. Health Concerns Section Related Observation LastModified by Organization Detai ls LastModified Time None Recorded Concern Status LastModified by Organization Details LastModified Time None Recorded Advance Directives Directive None Recorded Payers Encounter Date Sequence Insurance Name Policy Number Policy Javier Covered Member ID Javier Member ID Guarantor Name 10/18/2022 1 [facility] - DOS PRIOR TO 2022 - DUAL ELIGIBLE (MEDICARE REPLACEMENT/ADV ANTAGE - HMO) Jacki Baker [id number] Jacki Baker 12/11/2022 1 [facility] - DOS PRIOR TO 2022 - DUAL ELIGIBLE (MEDICARE REPLACEMENT/ADV ANTAGE - HMO) Jacki Baker [id number] Jacki Baker 05/06/2023 1 [facility] - DOS ON OR AFTER 2022 - DUAL ELIGIBLE - J[employer] OPT[employer] AND ONE CARE (MEDICARE REPLACEMENT/ADV ANTAGE - HMO) Jacki Baker [id number] Jacki Baker Notes Date Note Type Note [...] ..................... ..................... ..................... ..................... ..................... ..................... ............... Splicer Operator Note From Elias Washington: PT c/o n/v/d x2 weeks, states that it? s a ? p robable gastroenteritis episode.? Pt notes 10/10 abd pain. [...] and given 15mg Toradol ordered and given Splicer Operator Allergies: Aspirin, Omeprazole, Penicillin ..................... ..................... ..................... [...] with these spells. Ale Mendoza MD [address] [facility],[address], [place], [address], [place] [facility] [employer] 10/18/2022 23:36:31 12/11/2022 text/html HPI: Call to [...] CRC RN DID NOT NEED FURTHER INFO PRATIBHAER ..................... ..................... ..................... ..................... ..................... ..................... ............... Splicer Operator Note From Steve Lozoya: Pt answers door, [...] NS 1L IV, zofran 4mg IV ? ? [address] [facility] via portal. Pt advised by [facility] to stop taking antibiotics until she can talk to her PCP, eat only BRAT diet (explained) and drink clear liquids. Red flags and pt education discussed. Splicer Operator Allergies: Aspirin, Omeprazole, Penicillin, Trimethoprim-Sulfamet hoxazole ..................... [...] denies UTi s/s Ale Mendoza MD [address] [facility],[address], [place], [address], [employer] 12/11/2022 17:10:18 05/06/2023 text/html HPI: Vomiting and wants to make sure she is not dehydrated>has been experiencing symptoms for about 3 days. ..................... ..................... ..................... ..................... ..................... ..................... ............... CRC Nursing Assessment: Comments: Requestor unable to give additional details. ..................... ..................... ..................... ..................... ..................... ..................... ............... Splicer Operator Note From Silvano Garcia: Pt reports n/v/d for three days. Pt denies CP, SOB, fevers, chills, hematochezia, hematemesis. Pt is alert, NAD. VSS. Afebrile. Neuro exam and gait normal. Lungs CTA. ABD is distended and tender in epigastric region. + BS x4. No LLE. Rapid covid and flu negative. POC BMP lactate 36.2. [facility] contacted and advised pt be seen in ED. 911 initiated. Normal saline 500 mg IV and Ondansetron 4 mg IVP administered en route to [place] ED. [facility] boiler maker maintained all pt care until transfer of care to [facility] RN. [facility] Lab Orders: BMP, serum or plasma: Performed rapid SARS CoV 2 Ag, QL IA, respiratory specimen: Performed rapid flu (A+B): Performed ..................... ..................... ..................... ..................... ..................... ..................... ............... Disposition: Fulfilled Ale Mendoza MD [address] [place] [address],[address], [place], [address], [place] - [employer] 05/07/2023 10:32:09 OBGyn Episode No OBEpisode recorded.
[2024-11-05 14:09] LABS: Cholesterol 147 mg/dL (<200); HDL Cholesterol 44 mg/dL (>40); LDL Cholesterol Calculated 38 mg/dL (<100); Triglycerides 328 mg/dL (<150)
[2024-11-06 04:35] LABS: ~Hepatitis C Antibody Nonreactive (Nonreactive)
== END 2024-11-05 10:56 | disposition home or self-care (01) ==
LOC: HO.HHCL 10:55
PROVIDERS: Visit Provider General Practice
DX: E11.65 Type 2 diabetes mellitus with hyperglycemia (principal); Z79.4 Long term (current) use of insulin
CPT/HCPCS: 36415; 80061; 86803

== ENCOUNTER 2024-12-01 11:15 | Outpatient (REF) | payer OTHER, SELFPAY ==
--- NOTE | ~2024-12-01 | MM_ITS ---
EXAMINATION: MM DIAGNOSTIC DIGITAL BREAST TOMOSYNTHESIS, RIGHT Limited right breast ultrasound. CLINICAL INFORMATION: Right bloody and black nipple discharge. COMPARISON: Mammography: Comparison is made with relevant prior exams. TECHNIQUE: Digital breast mammography with tomosynthesis is performed in both the craniocaudal and mediolateral oblique views along with computer-aided detection (CAD). FINDINGS: The breasts are heterogeneously dense, which may obscure small masses (ACR BI-RADS breast composition Category c). Marker clip in the upper outer breast. There are no significant masses, abnormal calcifications, or other abnormalities. Targeted color Doppler ultrasound scanning in the retroareolar region demonstrates normal fibroglandular breast tissue and a few ectatic ducts. There is no suspicious sonographic abnormality. Results are provided to the patient at time of visit by the technologist. MM/MM tomosynthesis diagnostic BI IMPRESSION: No mammographic or sonographic abnormality to account for the patient's right bloody and black nipple discharge. Recommend breast MRI at this time for further evaluation. Breast MRI needs to be ordered by the patient's providing clinician. ASSESSMENT: BI-RADS BI-RADS 1 - Negative RECOMMENDATION: 1 year F/U This patient's information was entered into a reminder system with a target due date for their next mammogram. Electronically signed by: Susana Garcia DO 12/01/2024 12:57 PM EDT
--- OUTSIDE RECORDS SUMMARY | 2024-12-01 13:20 | XMS_ITS | Encounter Summary ---
Author Organization [facility] Address [address] 7t [place] [address] Care Team Providers Care Welcome Center Attendant Name Role Phone Karen Guthrie MD Primary Care Provider Encounter Details Date Type Department Care Team (Late Contact Info) Description 01/10/2023 Orders Only [facility] [address] [place] [address] Karen Guthrie MD [address] [place] [address] Vomiting, unspecified vomiting type, unspecified whether nausea [...] Female 06/24/2022 10:14 AM EDT Sexual Orientation Straight 10/18/2024 1: 29 PM EST documented as of this encounter Plan of Treatment Upcoming Encounters Date Type Department Care Team (Late Contact Info) Description 01/21/2025 10:00 AM EDT Office Visit [facility] [address] [place] [address] Robert, Yocasta, OD [address] [place] [address] Scheduled Orders Name Type Priority Associated Diagnoses Orde r Schedule Basic Metabolic Panel Lab Routine Vomiting, unspecified vomiting type, unspecified whether nausea present Expected: 01/10/2023 (Approximate), Expires: 01/11/2024 documented as of this encounter Visit Diagnoses Diagnosis Vomiting, unspecified vomiting type, unspecified whether nausea present- Primary documented in this encounter Care Teams Welcome Center Attendant Relationship Specialty Start Date End Date Karen Guthrie MD [address] [place] [address] PCP - General Family Medicine 07/15/22 documented as of this encounter
--- OUTSIDE RECORDS SUMMARY | 2024-12-01 13:20 | XMS_ITS | Encounter Summary ---
Author Organization [email or web address] Address [address] [place] [address] Care Team Providers Care Hotel Desk Clerk Name Role Phone Karen Guthrie MD Primary Care Provider [phone] Encounter Details Date Type Department Care Team ([facility] st Contact Info) Description 09/23/2024 Orders Only [facility] MEDICINE [address] [place], [place] [phone] Karen Guthrie MD [address] [place], [place] [phone] Social History Tobacco Use Types Packs/Day Years [...] Care Team (Late st Contact Info) Description 01/21/2025 10:00 AM EDT Office Visit [facility] OPTOMETRY [address] [place] [address] Robert, Yocasta, OD [address] [place] [address] documented as of this encounter Visit Diagnoses Not on filedocumented in this encounter Additional Health Concerns Assessment Noted Time PHQ-9 Depression Total Score: 14 024 1:04 PM EDT documented as of this encounter Care Teams Hotel Desk Clerk Relationship Specialty Start Date End Date Karen Guthrie MD [address] [place], [place] [phone] PCP - General Family Medicine 07/15/22 documented as of this encounter
--- OUTSIDE RECORDS SUMMARY | 2024-12-01 13:20 | XMS_ITS | Encounter Summary ---
Author Organization [employer] Address [address] [place] [address] Care Team Providers Care Coal Trimmer Machine Operator Name Role Phone Karen Guthrie MD Primary Care Provider [phone] Encounter Details Date Type Department Care Team (Late Contact Info) Description 12/16/2022 Orders Only [facility] MEDICINE [address] [place] [address] Karen Guthrie MD [address] [place] [address] Epigastric pain (Primary Dx) Social History Tobacco [...] Orientation Straight 10/18/2024 1: 29 PM EST COVID-19 Exposure Response Date Recorded In the last 10 days, have yo u been in contact with someone who was confirmed or suspected to have Coronavirus/COVID-19? No / Unsure 12/04/2022 2:00 PM EDT documented as of this encounter Plan of Treatment Upcoming Encounters Date Type Department Care Team ([facility] Contact Info) Description 01/21/2025 10:00 AM EDT Office Visit [facility] OPTOMETRY [address] [place], [place] [phone] Yocasta Jones, OD [address] [facility] [place] [address] documented as of this encounter Procedures Procedure Name Priority Date/Time Associated Diagnosis Comments GLUCOSE, WHOLE BLOOD Routine 01/01/2023 10:57 AM EDT Epigastric pain GLUCOSE, WHOLE BLOOD Routine 01/01/2023 10:32 AM EDT Epigastric pain documented in this encounter Results * Glucose, Whole Blood (01/01/2023 10:57 AM EDT) Glucose, Whole Blood 95 60 - 115 mg/dL [facility] Comment:METER #: [id number] Testing performed in the Endocrinology Department [address] , [address], [facility]. 01/01/2023 10:5 7 AM EDT 01/01/2023 11:05 AM EDT [facility] External Provider LAB BLO OD ORDERABLES Final Result Performing Organization Address City/[facility]/ZIP Co de Phone Number [facility] [address] [place] [phone] * Glucose, Whole Blood (01/01/2023 10:32 AM EDT) Glucose, Whole Blood 60 60 - 115 mg/dL [facility] Comment:METER #: [id number] 5Testing performed in the Endocrinology Department [address] , [address], [facility]. 01/01/2023 10:3 2 AM EDT 01/01/2023 10:38 AM EDT [facility] External Provider LAB BLO OD ORDERABLES Final Result Performing Organization Address [facility]/ZIP Co de Phone Number [facility] [address] [place] [phone] documented in this encounter Visit Diagnoses Diagnosis Epigastric pain- Primary Abdominal pain, epigastric documented in this encounter Care Teams Coal Trimmer Machine Operator Relationship Specialty Start Date End Date Karen Guthrie MD [address] [place] [phone] PCP - General Family Medicine 07/15/22 documented as of this encounter
--- OUTSIDE RECORDS SUMMARY | 2024-12-01 13:20 | XMS_ITS | Encounter Summary ---
Author Organization [employer] [facility] Address [address] [place] [address] Care Team Providers Care Hoop Maker Helper Machine Name Role Phone Karen Guthrie MD Primary Care Provider [phone] Encounter Details Date Type Department Care Team ([facility] Contact Info) Description 04/18/2023 Orders Only [facility] [address] [place] [address] Karen Guthrie MD [address] [place] [address] Social History Tobacco Use Types Packs/Day Years [...] Description 01/21/2025 10:00 AM EDT Office Visit [facility] [address] [place], [place] [phone] Robert, Yocasta, OD [address] [place] [address] documented as of this encounter Visit Diagnoses Not on filedocumented in this encounter Care Teams Hoop Maker Helper Machine Relationship Specialty Start Date End Date Karen Guthrie MD [address] [place] [address] PCP - General Family Medicine 07/15/22 documented as of this encounter
--- OUTSIDE RECORDS SUMMARY | 2024-12-01 13:20 | XMS_ITS | Encounter Summary ---
Author Organization [employer] [facility] Address [address] 7t [place] [address] Care Team Providers Care Passenger Car Upholsterer Apprentice Name Role Phone Quang Vasques MD Primary Care Provider Karen Kang MD Primary Care Provider Encounter Details Date Type Department Care Team (Latest Contact Info) Description 09/04/2018 Abstract [facility] CONVERSIONS Dental, Provider, DDS Social History Tobacco [...] Description 01/21/2025 10:00 AM EDT Office Visit [facility] OPTOMETRY [address] [place] [address] Yocasta Jones, OD [address] [place] [address] documented as of this encounter Visit Diagnoses Not on filedocumented in this encounter Care Teams Passenger Car Upholsterer Apprentice Relationship Specialty Start Date End Date Quang Vasques MD PCP - General Family Medicine 02/15/20 07/14/22 Karen Guthrie MD [address] [place] [address] PCP - General Family Medicine 07/15/22 documented as of this encounter
--- OUTSIDE RECORDS SUMMARY | 2024-12-01 13:20 | XMS_ITS | Encounter Summary ---
Author Organization [employer] Address [address] [facility] [place] [address] Care Team Providers Care [employer] Name Role Phone Karen Guthrie MD Primary Care Provider [phone] Reason for Visit * Reason Comments Med Refill Encounter Details Date Type Department Care Team ([facility] Contact Info) Description 11/30/2024 Refill [facility] [address] [place], [place] [id number] Karen Guthrie MD [address] [place], [place] [id number] Type 2 diabetes mellitus with other specified complication, unspecified whether longterm insulin use ([facility]) Social History Tobacco Use Types Packs/Day Years Used Date Smoking Tobacco: Never Passive Smoke Exposure: Never Smokeless Tobacco: Never Alcohol Use Standard Drinks/Week Comments Never 0 (1 standard drink = 0.6 oz pur e alcohol) Depression Answer Date Recorded Patient Health Questionnaire-9 Score 21 11/05/2024 Patient Health Questionnaire-9 Score 21 11/05/2024 Last PHQ-9: Questionnaire Data Not on file 0 11/05/2024 Housing Stability Answer Date Recorded What is [...] Answer Date Recorded Patient Health Questionnaire-2 Score 6 11/05/2024 Internet Access Answer Date Recorded Internet Access Q1 Yes 10/29/2024 Internet Access Q2 Not on file 10/29/2024 Comments Unknown Sex and Gender Information Value [...] Description 01/21/2025 10:00 AM EDT Office Visit [facility] [address] [place] [address] Robert, Yocasta, OD [address] [place] [address] documented as of this encounter Visit Diagnoses Diagnosis Type 2 diabetes mellitus with other specified complication, unspecified whether longterm insulin use ([facility]) documented in this encounter Additional Health Concerns Assessment Noted Time PHQ-9 Depression Total Score: 21 025 10:33 AM EDT documented as of this encounter Care Teams [employer] Relationship Specialty Start Date End Date Karen Guthrie MD [address] [place] [address] PCP - General Family Medicine 07/15/22 documented as of this encounter
--- OUTSIDE RECORDS SUMMARY | 2024-12-01 13:20 | XMS_ITS | Clinical Summary ---
Author Organization [employer] Address [address] [facility] [address] [place] [address] Care Team Providers Care Public Health Physician Name Role Phone Karen Guthrie MD Primary Care Provider [phone] Allergies Active Allergy Reactions Criticality Noted Date [...] at bedtime. 023 Active Continuous Blood Gluc Gang Plank Workman ([employer]Style Khalif 2 [place]) device USE TO TEST BLOOD SUGAR THREE TIMES DAILY AND NEEDED 1 each 023 Active benztropine (Cogentin) 0.5 MG tablet Take 0.5 mg by mouth at bedtime. 023 Active NovoLOG FLEXPEN 100 UNIT/ML penIndications:T ype 2 diabetes mellitus with other specified complication, with long-term current use of insulin ([facility]) INJECT 12 UNITS SUBCUTANEOUSLY WITH BREAKFAST, INJECT 10 UNITS WITH LUNCH, AND INJECT 12 UNITS WITH DINNER 15 mL 024 Active bisacodyl (Dulcolax) 10 MG suppository UNWRAP AND INSERT 1 SUPPOSITORY RECTALLY DAILY NEEDED FOR CONSTIPATION 024 Active Multiple Vitamin (Multivitamin) tablet TAKE 1 TABLET BY MOUTH EVERY MORNING WITH FOOD 90 tablet 3 024 Active D3 Super Strength 50 MCG (1999 [place]) capsuleIndicatio ns:Vitamin D deficiency TAKE 1 CAPSULE BY MOUTH EVERY MORNING 90 capsule 3 024 Active liver oil-zinc oxide (Desitin) 40 % ointment Apply topically if needed in the morning and at bedtime for irritation. 56 g 024 Active Continuous Glucose Sensor (FreeStyle Khalif 2 Sensor) [facility] TEST BLOOD SUGAR THREE TIMES DAILY AND NEEDED. CHANGE EVERY 14 DAYS 2 each 3 024 Active Fiber-Lax 625 MG tablet TAKE 1 TABLET BY MOUTH TWICE DAILY IN THE MORNING AND IN THE EVENING 180 tablet 3 024 Active TRUEplus Lancets 33G misc USE DIRECTED TO TEST BLOOD SUGAR 4 TO 6 TIMES A DAY 100 each 11 024 Active omeprazole (PriLOSEC) [address] capsuleIndicatio [...] MORNING (HIGH BLOOD PRESSURE) 90 tablet 3 Active Jardiance 10 MG Active Tresiba FlexTouch 200 UNIT/ML injection INJECT 85 UNITS SUBCUTANEOUSLY EVERY DAY 18 mL 3 Active metFORMIN XR (Glucophage-XR) 500 MG 24 hr tablet Active glucose blood (FREESTYLE LITE) test stripIndications :Type 2 diabetes mellitus with other specified complication, unspecified whether correction insulin use ([facility]) TEST BLOOD SUGAR 4 TO 6 TIMES PER DAY 100 strip Active insulin pen needle (BD Pen Needle Inocencia U/F) 32G x 4 mm miscIndications: Type 2 diabetes mellitus with other specified complication, unspecified whether correction insulin use ([facility]) USE DIRECTED TO INJECT DAILY 100 each 5 Active dulaglutide (Trulicity) 4.5 MG/0.5ML solution pen-injector Inject 4.5 mg under the skin 1 (one) time per week. 4 each 024 2024 Discontinued(T herapy completed) Trulicity 1.5 MG/0.5ML solution pen-injector INJECT ONE PEN (=1.5MG) SUBCUTANEOUSLY ONCE A WEEK DIRECTED 2024 Discontinued(S jesús effects) glucose blood (FREESTYLE LITE) test stripIndications :Type 2 diabetes mellitus with other specified complication, unspecified whether terminal superintendent insulin use ([facility]) TEST BLOOD SUGAR 4 TO 6 TIMES PER DAY 100 strip 5 024 2024 Discontinued(R eorder (will not trigger notification to Pharmacy)) insulin pen needle (Pentips) 32G x 4 mm miscIndications: Type 2 diabetes mellitus with other specified complication, unspecified whether correction insulin use ([facility]) USE DIRECTED TO INJECT DAILY 100 each 5 024 2024 Discontinued docusate sodium (Colace) 100 MG capsule TAKE 1 CAPSULE BY MOUTH TWICE DAILY IN THE MORNING AND IN THE EVENING 180 capsule 3 024 2024 Discontinued(T herapy completed) Active Problems Problem Noted Date Diagnosed Date 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 05/31/2024 Other constipation 09/22/2023 Assessment & Plan (12/23/2023 7:56 AM EDT): Continue current meds: has Miralax, Senna, fiber, stool softeners at home Lumbago with sciatica 06/22/2021 Candidiasis of vagina 12/18/2018 Assessment & Plan (12/23/2023 7:55 AM EDT): Likely reoccurent, Clotrimazole to external vagina Hyperlipidemia associated with type 2 diabetes m ellitus 12/18/2018 Diarrhea 09/18/2018 Vomiting 09/18/2018 Gastroenteritis 07/02/2018 Memory impairment 07/02/2018 Cough due to HERMILO inhibitor 05/18/2018 Foot callus 05/18/2018 Tubular adenoma of colon 05/18/2018 Assessment & Plan (09/22/2023 9:52 AM EST): Call GI to schedule Assessment & Plan (05/21/2023 5:57 AM EDT): Re-refer to GI, supposed to repeat [facility]scope in 2020 at [facility] Did not get scheduled, overdue In the [...] Left posterior capsular opacification 01/14/2018 Presbyopia 01/14/2018 Leukocytosis 09/09/2017 Viral disease 08/27/2017 Urinary incontinence 06/09/2017 Adjustment disorder with depressed mood 09/21/19 16 Dental caries 11/25/2013 Depressive disorder 07/13/2012 Essential hypertension 10/10/2011 Assessment & Plan (12/23/2023 7:54 AM EDT): At goal today Continue Losartan 50mg daily Assessment & Plan (09/22/2023 9:52 AM EST): Not at goal Increase Losartan to 50mg daily Type 2 diabetes mellitus wit h hyperglycemia, with long-term current use of insulin 09/04/2011 Assessment & Plan (11/10/2024 1:30 PM EDT): Current A1c: 9.3, continue insulin titration with C Endo BMP: Lab Results Component Value Date CREATININE 0.78 11/24/2023 CREATININE 0.83 11/30/2021 K 4.1 11/24/2023 Microalbumin: due, today Foot Exam: at endo Eye Exam: last one year ago Lipid panel: ordered, today ASCVD: The 10-year ASCVD risk score (Colin DIAZ, et al., 2019) is: 12.6% Values used to calculate the score: Age: 69 years Sex: Female Is Non- : No Diabetic: Yes Tobacco smoker: No Systolic Blood Pressure: 106 mmHg Is BP treated: Yes HDL Cholesterol: 44 mg/dL Total Cholesterol: 147 mg/dL' Statin: Yes ASA: No HERMILO/ARB: Yes, Losartan Encouraged regular aerobic exercise for improved glycemic control Encouraged daily foot checks Encouraged lean protein snacks and to avoid foods high in sugar and simple carbohydrates Treatment Goals: A1c goal: <7% FBG goal: <130 2 hour post prandial goal: <180 Assessment & Plan (12/23/2023 7:56 AM EDT): [...] skeletal muscle 06/20/2011 Shoulder joint pain 05/23/2011 Resolved Problems Problem Noted Date Diagnosed Date Resolved Date Recurrent major depression i n partial remission 11/17/2018 11/10/2024 Volume depletion 09/18/2018 11/10/2024 Cough 12/22/2017 11/10/2024 Uncontrolled diabetes mellitus 06/24/2012 11/10/2024 Obesity 10/10/2011 11/10/2024 Encounters Date Type Department Care Team Description 11/30/2024 Refill [facility] [address] [place] [address] Karen Guthrie MD Type 2 diabetes mellitus with other specified complication, unspecified whether correction insulin use (CMS/HCC) 11/11/2024 Refill [facility] [address] [place] [address] Karen Guthrie MD Type 2 diabetes mellitus with other specified complication, unspecified whether terminal superintendent insulin use (CMS/HCC) 11/05/2024 11:00 AM EDT Office Visit [facility] [place] [address] Karen Guthrie MD Essential hypertension (Primary Dx); Type 2 diabetes mellitus with hyperglycemia, with long-term current use of insulin (CMS/HCC); Dietary counseling; Exercise counseling; Overweight; Recurrent major depressive episodes, moderate (CMS/HCC); Hyperlipidemia associated with type 2 diabetes mellitus (CMS/HCC) ([facility]) 11/05/2024 Travel 10/29/2024 Patient Outreach [address] [address] Karen Guthrie MD Pre-visit Planning (SDOH screening negative and tobacco screening negative) 10/20/2024 Refill [facility] [place] [address] Karen Guthrie MD 10/19/2024 Orders Only [facility] [address] [place] [phone] Farhat Phillip CNM Bloody discharge from right nipple (Primary Dx) 10/18/2024 2:00 PM EST Office Visit [facility] [place] [address] Farhat Phillip CNM Bloody discharge from right nipple (Primary Dx) 10/18/2024 Travel 10/14/[address] [address] Karen Guthrie MD Nurse Triage 10/01/2024 Orders Only GENERIC EXTERNAL DATA DEPARTMENT Provider, Generic External Data 09/23/2024 Orders Only [facility] [address] [place] [phone] Karen Guthrie MD 09/22/2024 Refill [facility] [address] [place] [address] Karen Guthrie MD 09/10/2024 Telephone [facility] [address] [place] [address] Morena Sandoval [place] recall from Last 3 Months Immunizations Name Administration [...] Passive Smoke Exposure: Never Smokeless Tobacco: Never Tobacco Cessation:Counseling Given: [...] Orientation Straight 10/18/2024 1: 29 PM EST Last Filed Vital Signs Vital Sign Reading Time Taken Comments Blood Pressure 106/72 11/05/2024 10:32 AM EDT priscila nually Pulse 88 11/05/2024 10:32 AM EDT Temperature 36.7 ??C (98.1 ??F) 11/05/2024 10:32 AM E DT Respiratory Rate 16 11/05/2024 10:32 AM EDT Oxygen Saturation 96% 10/18/2024 1:59 PM EST Inhaled Oxygen Concentration - - Weight 67.6 kg (149 lb 2 oz) 11/05/2024 10:32 AM EDT Height 162.6 cm (5' 4 ) 11/05/2024 10:32 AM EDT Body Mass Index 25.6 11/05/2024 10:32 AM EDT Plan of Treatment Upcoming Encounters Date Type Department Care Team (Late st Contact Info) Description 01/21/2025 10:00 AM EDT Office Visit [facility] [address] [place] [address] Robert, Yocasta, OD [address] [place], [place] [phone] Health Maintenance Due Date Last Done Comments CT Colonography 1955 Colonoscopy 1955 FIT 1955 Sigmoidoscopy 1955 Eye Exam 1966 RSV Patients and Patients Aged 60 years or older (1 - Risk 60-74 years 1-dose series) 2016 FOBT 04/02/2024 04/02/2023 Diabetes: Urine Protein Screening 09/22/2024 09/22/2023, 03/22/2020 Diagnostic Breast Imaging 01/27/20252024, 12/01/2024, 07/29/2024, Additional history exists Diabetes: Hemoglobin A1C 02/05/2025 025, 12/19/2023, 09/22/2023, Additional history exists Depression Monitoring (PHQ-9) 05/08/2025 11/05/2024, 11/05/2024 Alcohol/Substance Use Screening 10/18/2025 10/18/2024 SDOH Screening 10/29/2025 10/29/2024 Depression Screening 11/05/2025 11/05/2024, 11/06/19 Diabetes: Foot Exam 11/05/2025 11/05/2024 Lipid Panel 11/05/2025 11/05/2024, 08/26, 03/22/2020 Tobacco Screening 11/10/2025 11/10/2024 Colorectal Cancer Screening 04/02/2026 FIT DNA/Cologuard 04/02/2026 04/02/2023 DTaP/Tdap/Td Vaccines (2 - Td or Tdap) 01/24/2027 01/24/2017 Zoster Vaccines Completed 03/08/2022, 01/01/2022 Hepatitis B Vaccines Completed 04/02/2022, 03/07/2017, 01/24/2017 Pneumococcal Vaccine: 50+ Years Completed 04/02/2022, 05/18/2018 COVID-19 Vaccine Completed 05/27/2024, , 06/27/2021, Additional history exists Influenza Vaccine Completed 05/27/2024, , 05/28/2022, Additional history exists Hepatitis C Screening Completed 11/05/2024 HIB Vaccines Aged Out No longer eligi [...] Name Priority Date/Time Associated Diagnosis Comments BI US BREAST LIMITED RIGHT STAT 12/01/2024 12:20 PM EDT Bloody discharge from right nipple BI MAMMOGRAM DIAGNOSTIC TOMOSYNTHESIS BILATERAL STAT 12/01/2024 12:15 PM EDT Bloody discharge from right nipple HEPATITIS C AB W/REFL TO HCV RNA, QN, PCR Routine 11/05/2024 10:58 AM EDT Type 2 diabetes mellitus with hyperglycemia, with long-term current use of insulin (CMS/HCC) LIPID PANEL, STANDARD Routine 11/05/2024 10:58 AM EDT Type 2 diabetes mellitus with hyperglycemia, with long-term current use of insulin (CMS/HCC) POCT GLYCATED HEMOGLOBIN, TOTAL Routine 11/05/2024 10:35 AM EDT Type 2 diabetes mellitus with hyperglycemia, with long-term current use of insulin (CMS/HCC) POCT GLUCOSE Routine 11/05/2024 10:35 AM EDT Type 2 diabetes mellitus with hyperglycemia, with long-term current use of insulin (CMS/HCC) GLUCOSE, WHOLE BLOOD Routine 10/01/2024 9:19 AM EST ALBUMIN, RANDOM URINE W/CREATININE Routine 09/22/2023 9:54 AM EST Type 2 diabetes mellitus with other specified complication, unspecified whether terminal superintendent insulin use (CMS/HCC) HM FIT DNA/COLOGUARD CANCER SCREENING Routine 04/02/2023 from Last 3 Months or Most Recently Relevant to Health Maintenance Results * BI US Breast Limited Right (12/01/2024 12:20 PM EDT) Anatomical Region Laterality Modality Breast Right Ultrasound 12/01/2024 12:2 0 PM EDT Narrative 12/01/2024 1:00 PM EDT ? [facility] ? [address] ?[place], [place] [address] ? Ultrasound Report ? Signed ? Patient: BakerJacki I ?MR#: [id number] ?? [id number] ? : 1955 ?Acct:[id number] ? Age/Sex: 69 / F ?ADM Date: 12/01/24 ? Loc: HO.MAMMO ? Attending Dr: Farhat Phillip CNM ? Ordering Physician: FARHAT PHILLIP CNM ?? Date of Service: 12/01/24 ?? Procedure(s): US breast RT limited mamm only ?? Accession Number(s): [id number] ? cc: Karen Guthrie; FARHAT PHILLIP CNM ? EXAMINATION: ?? MM DIAGNOSTIC DIGITAL BREAST TOMOSYNTHESIS, RIGHT ?? Limited right breast ultrasound. ? CLINICAL INFORMATION: ? Right bloody and black nipple discharge. ? COMPARISON: ?? Mammography: Comparison is made with relevant prior exams. ? TECHNIQUE: ?? Digital breast mammography with tomosynthesis is performed in both the ?? craniocaudal and mediolateral oblique views along with computer-aided ?? detection (CAD). ? FINDINGS: ?? The breasts are heterogeneously dense, which may obscure small masses ?? (ACR BI-RADS breast composition Category c). ?? Marker clip in the upper outer breast. ?? There are no significant masses, abnormal calcifications, or other ?? abnormalities. ? Targeted color Doppler ultrasound scanning in the retroareolar region ?? demonstrates normal fibroglandular breast tissue and a few ectatic ?? ducts. ?? There is no suspicious sonographic abnormality. ? Results are provided to the patient at time of visit by the ?? technologist. ? US/US breast RT limited mamm only ?? IMPRESSION: ?? No mammographic or sonographic abnormality to account for the patient's ?? right bloody and black nipple discharge. Recommend breast MRI at this ?? time for further evaluation. ?? Breast MRI needs to be ordered by the patient's providing clinician. ? ASSESSMENT: ? BI-RADS BI-RADS 1 - Negative ? RECOMMENDATION: ?? 1 year F/U ? This patient's information was entered into a reminder system with a ?? target due date for their next mammogram. ? Electronically signed by: ??Susana Garcia DO ??12/01/2024 12:57 PM EDT ? Dictated By: ?Susana Garcia DO ? Signed By: ?<Electronically signed by Susana Garcia, DO in OV> ? 12/01/24 1257 ? DD/ 1220 ? TD/TT: 12/01/24 1235 ? Supply Controller: ? Procedure Note Herson Dangelo - 12/01/2024 [facility] [address] [place] [address] Ultrasound Report Signed Patient: Jacki [facility]#: [id number] : 1955cct:[id number] Age/Sex: 69 / FADM Date: 12/01/24 Loc: HO.MAMMO Attending Dr: Farhat Phillip CNM Ordering Physician: FARHAT PHILLIP CNM Date of Service: 12/01/24 Procedure(s): US breast RT limited mamm only Accession Number(s): [id number] cc: Karen Guthrie; FARHAT PHILLIP CNM EXAMINATION: MM DIAGNOSTIC DIGITAL BREAST TOMOSYNTHESIS, RIGHT Limited right breast ultrasound. CLINICAL INFORMATION: Right bloody and black nipple discharge. COMPARISON: Mammography: Comparison is made with relevant prior exams. TECHNIQUE: Digital breast mammography with tomosynthesis is performed in both the craniocaudal and mediolateral oblique views along with computer-aided detection (CAD). FINDINGS: The breasts are heterogeneously dense, which may obscure small masses (ACR BI-RADS breast composition Category c). Marker clip in the upper outer breast. There are no significant masses, abnormal calcifications, or other abnormalities. Targeted color Doppler ultrasound scanning in the retroareolar region demonstrates normal fibroglandular breast tissue and a few ectatic ducts. There is no suspicious sonographic abnormality. Results are provided to the patient at time of visit by the technologist. US/US breast RT limited mamm only IMPRESSION: No mammographic or sonographic abnormality to account for the patient's right bloody and black nipple discharge. Recommend breast MRI at this time for further evaluation. Breast MRI needs to be ordered by the patient's providing clinician. ASSESSMENT: BI-RADS BI-RADS 1 - Negative RECOMMENDATION: 1 year F/U This patient's information was entered into a reminder system with a target due date for their next mammogram. Electronically signed by: Susana Garcia DO 12/01/2024 12:57 PM EDT Dictated By: Susana Garcia DO Signed By: <Electronically signed by Susana Garcia DO in OV> 12/01/24 1257 DD/ 1220 TD/TT: 12/01/24 1235 Supply Controller: Farhat Phillip CNM IMG US PROCEDURES Final R esult * BI Mammogram Diagnostic Tomosynthesis Bilateral (12/01/2024 12:15 PM EDT) Anatomical Region Laterality Modality Breast Bilateral Mammography 12/01/2024 12:1 5 PM EDT Narrative 12/01/2024 1:00 PM EDT ? [facility] [place] ? [address] ?[place] [address] ?[phone] ? Mammography Report ? Signed ? Patient: BakerJacki I ?MR#: [id number] ?? [id number] ? : 1955 ?Acct:[id number] ? Age/Sex: 69 / F ?ADM Date: 04/09/25 ? Loc: HO.MAMMO ? Attending Dr: Farhat Phillip CNM ? Ordering Physician: FARHAT PHILLIP CNM ?Results: 1 ?? Negative ? Date of Service: 12/01/24 ?Follow Up: 1 Year From Orig ?? inal Mammogram ? Procedure(s): MM tomosynthesis diagnostic BI ?? Accession Number(s): [id number] ? cc: Karen Guthrie; FARHAT PHILLIP CNM ? EXAMINATION: ?? MM DIAGNOSTIC DIGITAL BREAST TOMOSYNTHESIS, RIGHT ?? Limited right breast ultrasound. ? CLINICAL INFORMATION: ? Right bloody and black nipple discharge. ? COMPARISON: ?? Mammography: Comparison is made with relevant prior exams. ? TECHNIQUE: ?? Digital breast mammography with tomosynthesis is performed in both the ?? craniocaudal and mediolateral oblique views along with computer-aided ?? detection (CAD). ? FINDINGS: ?? The breasts are heterogeneously dense, which may obscure small masses ?? (ACR BI-RADS breast composition Category c). ?? Marker clip in the upper outer breast. ?? There are no significant masses, abnormal calcifications, or other ?? abnormalities. ? Targeted color Doppler ultrasound scanning in the retroareolar region ?? demonstrates normal fibroglandular breast tissue and a few ectatic ?? ducts. ?? There is no suspicious sonographic abnormality. ? Results are provided to the patient at time of visit by the ?? technologist. ? MM/MM tomosynthesis diagnostic BI ?? IMPRESSION: ?? No mammographic or sonographic abnormality to account for the patient's ?? right bloody and black nipple discharge. Recommend breast MRI at this ?? time for further evaluation. ?? Breast MRI needs to be ordered by the patient's providing clinician. ? ASSESSMENT: ? BI-RADS BI-RADS 1 - Negative ? RECOMMENDATION: ?? 1 year F/U ? This patient's information was entered into a reminder system with a ?? target due date for their next mammogram. ? Electronically signed by: ??Susana Garcia DO ??12/01/2024 12:57 PM EDT ?? RP ? Dictated By: ?Susana Garcia DO ? Signed By: ?<Electronically signed by Susana Garcia, DO in OV> ? 12/01/24 1257 ? DD/ 1215 ? TD/TT: 12/01/24 1223 ? Supply Controller: ? Procedure Note Donkennedyter, Image - 12/01/2024 [facility] [address] [place] [address] Mammography Report Signed Patient: Jacki Baker IMR#: [id number] : 1955cct:[id number] Age/Sex: 69 / FADM Date: 12/01/24 Loc: HO.MAMMO Attending Dr: Farhat Phillip CNM Ordering Physician: FARHAT PHILLIPesults: 1 Negative Date of Service: 12/01/24Follow Up: 1 Year From Orig inal Mammogram Procedure(s): MM tomosynthesis diagnostic BI Accession Number(s): [id number] cc: Karen Guthrie; FARHAT PHILLIP CNM EXAMINATION: MM DIAGNOSTIC DIGITAL BREAST TOMOSYNTHESIS, RIGHT Limited right breast ultrasound. CLINICAL INFORMATION: Right bloody and black nipple discharge. COMPARISON: Mammography: Comparison is made with relevant prior exams. TECHNIQUE: Digital breast mammography with tomosynthesis is performed in both the craniocaudal and mediolateral oblique views along with computer-aided detection (CAD). FINDINGS: The breasts are heterogeneously dense, which may obscure small masses (ACR BI-RADS breast composition Category c). Marker clip in the upper outer breast. There are no significant masses, abnormal calcifications, or other abnormalities. Targeted color Doppler ultrasound scanning in the retroareolar region demonstrates normal fibroglandular breast tissue and a few ectatic ducts. There is no suspicious sonographic abnormality. Results are provided to the patient at time of visit by the technologist. MM/MM tomosynthesis diagnostic BI IMPRESSION: No mammographic or sonographic abnormality to account for the patient's right bloody and black nipple discharge. Recommend breast MRI at this time for further evaluation. Breast MRI needs to be ordered by the patient's providing clinician. ASSESSMENT: BI-RADS BI-RADS 1 - Negative RECOMMENDATION: 1 year F/U This patient's information was entered into a reminder system with a target due date for their next mammogram. Electronically signed by: Susana Garcia DO 12/01/2024 12:57 PM EDT RP Workstation: [employer] Dictated By: Susana Garcia DO Signed By: <Electronically signed by Susana Garcia DO in OV> 12/01/24 1257 DD/ 1215 TD/TT: 12/01/24 1223 Supply Controller: us Farhat BROWNM IMG BI PROCEDURES Final R esult * Hepatitis C Antibody with Reflex to HCV, RNA, Quantitative, Real-Time PCR (11/05/2024 10:58 AM EDT) Hepatitis C Antibody Nonreactive Nonreactive [facility] Comment:Antibodies to HCV no t detected; does not exclude early acuteHCV infection. Blood Venous blood specimen / Unknown 11/05/2024 10:58 AM EDT 11/05/2024 1:32 PM EDT us Karen Guthrie MD LAB BLOOD ORDERABLES Final Res ult [facility] [address] [place] [phone] * (ABNORMAL) Lipid Panel, Standard (11/05/2024 10:58 AM EDT) Triglycerides 328(H) <150 mg/dL [facility] Comment:Desirable Triglyceri de: less than 150 mg/dLBorderline High Triglyceride 150-199 mg/dLHigh Triglyceride: 200-499 mg/dLVery High Triglyceride: greater than or equal to 5OO mg/dL Cholesterol 147 <200 mg/dL [facility] Comment:Desirable Cholestero l: less than 200 mg/dLBorderline High Cholesterol: 200-239 mg/dLHigh Cholesterol: greater than 239 mg/dL LDL Cholesterol Calculated 38 <100 mg/dL [facility] Comment:Desirable LDL: less than 100 mg/dLNear Optimal/Above Optimal LDL: 110- 129 mg/dLBorderline High LDL: 130-159 mg/dLHigh LDL: 160-189 mg/dLVery High LDL: greater than or equal to 190 mg/dL HDL Cholesterol 44 >40 mg/dL [facility] Comment:Desirable HDL: great er than 40 mg/dL Note: This HDL assay may give artificially low results in patients with liver disease. Blood Venous blood specimen / Unknown 11/05/2024 10:58 AM EDT 11/05/2024 1:32 PM EDT Karen Guthrie MD LAB BLOOD ORDERABLES Final Res ult [facility] [address] [place] [phone] * (ABNORMAL) POCT HGB A1C (11/05/2024 10:35 AM EDT) Pathologist [facility] Hemoglobin A1C 9.3(A) 4.0 - 6.0 % QC Media Lot # [id number] Lot# Expiration Date Blood 11/05/2024 10:3 5 AM EDT Karen Guthrie MD POINT OF CARE TEST ENTER/EDIT ORDERABLES Final Result * (ABNORMAL) POCT Glucose (11/05/2024 10:35 AM EDT) Glucose Blood, POC 382(A) 60 - 200 mg/dL Comment:Random QC Media Lot # [id number] Lot# Expiration Date [id number] Blood Capillary blood specimen / Unknown 11/05/2024 10:35 AM EDT Karen Guthrie MD POINT OF CARE TEST ENTER/EDIT ORDERABLES Final Result * (ABNORMAL) Glucose, Whole Blood (10/01/2024 9:19 AM EST) Glucose, Whole Blood 297(H) 60 - 115 mg/dL [facility] Comment:METER #: [id number] 5Testing performed in the Endocrinology Department [address] , [address], [facility]. 10/01/2024 9:19 AM EST 10/01/2024 9:27 AM EST Generic External Data Provider LAB BLOOD ORDERAB LES Final Result Performing Organization Address [facility] de Phone Number [facility] [address] [place] [phone] * (ABNORMAL) Albumin, Random Urine W/Creatinine (09/22/2023 9:54 AM EST) Pathologist [facility] Foundation Creatinine, Urine 228.61 mg/dL [facility] Microalbumin Urine 1,362.0 mg/L [facility] Microalbum Creatinine Ratio Ur 595.7(H) <30 ug/mg cr [facility] Comment:Albumin/Creatinine R atio Reference Ranges: Normal: < 30 ug/mg creatinine Microalbuminuria: 30 - 300 ug/mg creatinineClinical Albuminuria: > 300 ug/mg creatinine Urine (Urine, Random) 09/22/2023 9:54 AM EST 09/22/2023 11:03 AM EST Karen Guthrie MD LAB URINE ORDERABLES Final Res ult Performing Organization Address City/[facility]/ZIP Co de Phone Number [facility] [address] [place] [address] [phone] * FIT DNA/Cologuard Cancer Screening (04/02/2023) Cologuard Cancer Screen Negative Stool Karen Guthrie MD HEALTH MAINTENANCE Final Resul t from Last 3 Months or Most Recently Relevant to Health Maintenance [place] [address] [address] - [facility] Care Teams Public Health Physician Relationship Specialty Start Date End Date Karen Guthrie MD [address] [place] [address] PCP - General Family Medicine 07/15/22
--- OUTSIDE RECORDS SUMMARY | 2024-12-01 13:20 | XMS_ITS | Encounter Summary ---
Author Organization [facility] Address [address] [facility] 7t [place] [address] Care Team Providers Care Analysis Reporting Developer Name Role Phone Karen Guthrie MD Primary Care Provider [phone] Encounter Details Date Type Department Care Team (Late Contact Info) Description 01/31/2023 Orders Only [facility] MEDICINE [address] [place] [address] Karen Guthrie MD [address] [place] [address] Constipation, unspecified constipation type (Primary Dx) Social [...] Description 01/21/2025 10:00 AM EDT Office Visit [facility] OPTOMETRY [address] [place] [address] Robert, Yocasta, OD [address] [place] [address] documented as of this encounter Visit Diagnoses Diagnosis Constipation, unspecified constipation type- Primary documented in this encounter Care Teams Analysis Reporting Developer Relationship Specialty Start Date End Date Karen Guthrie MD [address] [place] [address] PCP - General Family Medicine 07/15/22 documented as of this encounter
--- OUTSIDE RECORDS SUMMARY | 2024-12-01 13:20 | XMS_ITS | Encounter Summary ---
Author Organization [employer] Address [address] [place] [address] Care Team Providers Care Environmental Lawyer Name Role Phone Karen Guthrie MD Primary Care Provider [phone] Reason for Visit * Reason Onset Date Comments Med Refill 04/22/2024 Encounter Details Date Type Department Care Team ([facility] st Contact Info) Description 04/22/2024 Telephone [facility] MEDICINE [address] [place], [place] [phone] Karen Guthrie MD [address] [place] [address] Med Refill Social History Tobacco Use Types [...] PM EST documented as of this encounter Miscellaneous Notes * Telephone Encounter - Magy Chaudhary LPN - 04/22/2024 9:39 AM EDT Medication was sent to [facility] Pharm[facility] on 03/10/24 with 3 refills. * Telephone Encounter - Harry Deal - 04/22/2024 9:27 AM EDT TC from pt requesting medication refill. Medications needing refill : Continuous Glucose Sensor (FreeStyle Khalif 2 Sensor) misc To be sent to: [facility] Pharm[facility] documented in this encounter Plan of Treatment Upcoming Encounters Date Type Department Care Team (Late st Contact Info) Description 01/21/2025 10:00 AM EDT Office Visit [facility] OPTOMETRY [address] [place] [address] Yocasta Jones, OD [address] [place] [address] documented as of this encounter Visit Diagnoses Not on filedocumented in this encounter Additional Health Concerns Assessment Noted Time PHQ-9 Depression Total Score: 14 024 1:04 PM EDT documented as of this encounter Care Teams Environmental Lawyer Relationship Specialty Start Date End Date Karen Guthrie MD [address] [place] [address] PCP - General Family Medicine 07/15/22 documented as of this encounter
--- OUTSIDE RECORDS SUMMARY | 2024-12-01 13:20 | XMS_ITS | Encounter Summary ---
Author Organization [employer] Address [address] [place] [address] Care Team Providers Care Veneer Stock Grader Name Role Phone Karen Guthrie MD Primary Care Provider [phone] Reason for Visit * Reason Comments Med Refill Encounter Details Date Type Department Care Team ([facility] Contact Info) Description 10/01/2023 Refill [facility] MEDICINE [address] [place], [place] [phone] Karen Guthrie MD [address] [place], [place] [phone] Type 2 diabetes mellitus with other specified complication, unspecified whether jail insulin use ([facility]) Social History Tobacco Use Types [...] Description 01/21/2025 10:00 AM EDT Office Visit [facility] OPTOMETRY [address] [place], [place] [phone] Yocasta Jones, OD [address] [place] [address] documented as of this encounter Visit Diagnoses Diagnosis Type 2 diabetes mellitus with other specified complication, unspecified whether intermediate frame tender insulin use ([facility]) documented in this encounter Care Teams Veneer Stock Grader Relationship Specialty Start Date End Date Karen Guthrie MD [address] [place] [address] PCP - General Family Medicine 07/15/22 documented as of this encounter
--- OUTSIDE RECORDS SUMMARY | 2024-12-01 13:20 | XMS_ITS | Data Portability ---
Author Organization [email or web address] [place] [facility] Address [address] [place] [phone] Care Team Providers Care Licensing Manager Name Role Phone [facility] Referring Provider YASEMIN LAMBERT Primary Care Provider Assessment Encounter Date Assessment Date Assessment LastModified by Organization Details LastModified Time 10/18/2022 10/18/2022 I provided real -time medical direction via phone for this encounter, and was available for additional phone based assistance as needed. I have reviewed and agree with the Assessment and Plan as documented by the Forepart Rounder. Patient given the opportunity to ask questions. [email or web address] Not available 10/18/2022 23:13:30 12/11/2022 12/11/2022 I provided real -time medical direction via phone for this encounter, and was available for additional phone based assistance as needed. I have reviewed and agree with the Assessment and Plan as documented by the Forepart Rounder. Patient given the opportunity to ask questions. Advised if develops CP/severe SOB/ increased abd pain/uncontrolle d n/v/d or black/bloody emesis or stool/ AMS/ syncope/ hi fever to call 911- verbalized understanding of instructions [email or web address] Not available 12/11/2022 16:54:21 05/06/2023 05/06/2023 I provided real -time medical direction via phone for this encounter, and was available for additional phone based assistance as needed. I have reviewed the Assessment and Plan as documented by the Forepart Rounder. Patient given the opportunity to ask questions. [email or web address] Not available 05/07/2023 10:28:45 Plan of Treatment Reminders Order Date Submit Date Provider Last Modified By Organization Details Last Modified Time Details Appointments None recorded. Lab BMP, serum or plasma 2022 023 [email or web address] 0 [facility], [address] [place] [address], [id number] 3 10:28:26 rapid SARS CoV 2 Ag, QL IA, respiratory specimen 2022 023 [email or web address] 0 [facility], [address] [place] [address], [id number] 3 10:28:26 rapid flu (A+B) 2022 023 [email or web address] 0 [facility], [address] [place] [address], [id number] 3 10:28:26 BMP, serum or plasma 2022 023 [email or web address] 0 [facility], [address] [place] [address], [address] [place] [address] 3 17:09:27 urinalysis, dipstick 2022 023 [email or web address] 0 [facility] - [facility], [address] [place] [address], [id number] 3 23:34:46 BMP, serum or plasma 2022 023 [email or web address] 0 [facility] - [facility], [address] [place] [address], [id number] 3 23:34:46 Referral None recorded. Procedures None recorded. Surgeries None recorded. Imaging None recorded. Medication Orders sodium chloride 0.9 % intravenous solution 2022 023 [email or web address] 0 [facility], [address] [place] [address], [id number], 3 10:28:26 ondansetron HCl (PF) 4 mg/2 mL injection solution 2022 023 [email or web address] 0 [facility], [address] [place] [address], [id number], 3 10:28:26 ondansetron 4 mg disintegrat ing tablet 2022 023 [facility], [address] [place] [address], [id number], 3 17:01:14 sodium chloride 0.9 % intravenous solution 2022 023 [email or web address] 0 [facility], [address] [place] [address], [id number], 3 17:09:27 ondansetron HCl (PF) 4 mg/2 mL injection solution 2022 023 [email or web address] 0 [facility], [address] [place], [place], [id number], 3 17:09:27 sodium chloride 0.9 % intravenous solution 2022 023 [email or web address] 0 Not available 23:34:46 Patient TargetsNo targets recorded. Patient InstructionsNo instructions recorded. Reason for Referral None Reported. Results Created Date Observation Date Name Description Value Unit Range Abnormal Flag Note LastModifiedBy Organization Detail LastModifiedTime 10/18/1910/18/2022 urina lysis , dipst ick Leukocytes neg Not Available [facility] [address] [place] [address], [id number] 10/18/2022 23:20:01 10/18/19 23 10/18/2022 urina lysis , dipst ick Nitrite negati ve Not Available Main - [facility] [address], [phone] 10/18/2022 23:20:01 10/18/19 23 10/18/2022 urina lysis , dipst ick Urobilinogen neg Not Available [facility] - [facility] [address] [place] [address], [id number] 10/18/2022 23:20:01 10/18/19 23 10/18/2022 urina lysis , dipst ick Protein neg Not Available Main - Ins [address], [id number] 10/18/2022 23:20:01 10/18/19 23 10/18/2022 urina lysis , dipst ick pH 6.5 Not Available Main - [facility] [address], [address] 10/18/2022 23:20:01 10/18/19 23 10/18/2022 urina lysis , dipst ick Blood neg Not Available Main - [facility] [address], [address] [place] [address] 10/18/2022 23:20:01 10/18/19 23 10/18/2022 urina lysis , dipst ick Specific [place] 1;025 Not Available [facility] - [facility] [address] [place] [address], [address] [place] [address] 10/18/2022 23:20:01 10/18/19 23 10/18/2022 urina lysis , dipst ick Ketone trace Not Available Main - Ins michael [address] [place] [address], [address] [place] [address] 10/18/2022 23:20:01 10/18/19 23 10/18/2022 urina lysis , dipst ick Bilirubin trace Not Available Main - I [address], [address] [place] [address] 10/18/2022 23:20:01 10/18/19 23 10/18/2022 urina lysis , dipst ick Glucose negati ve Not Available [facility] - [facility] [address] [place] [address], [address] [place] [address] 10/18/2022 23:20:01 10/18/19 23 10/18/2022 urina lysis , dipst ick Appearance clear Not Available [facility] - [facility] [address] [place] [address], [address] [place] [address] 10/18/2022 23:20:01 10/18/19 23 10/18/2022 urina lysis , dipst ick Color yelllo w Not Available [facility] - [facility] [address] [place] [address], [address] [place] [address] 10/18/2022 23:20:01 10/18/19 23 10/18/2022 BMP, serum or plasm a BUN 8 Not Available Main - Ins [address], [address] [place] [address] 10/18/2022 23:20:03 10/18/19 23 10/18/2022 BMP, serum or plasm a Ca I az = 1.21 Not Available [facility] [address] [place] [address], [address] [place] [address] 10/18/2022 23:20:03 10/18/19 23 10/18/2022 BMP, serum or plasm a CI- 102 Not Available Main - [facility] [address], [address] [place] [address] 10/18/2022 23:20:03 10/18/19 23 10/18/2022 BMP, serum or plasm a CRE 0.5 Not Available Main - [facility] [address], [address] [place] [address] 10/18/2022 23:20:03 10/18/19 23 10/18/2022 BMP, serum or plasm a GLU 100 Not Available Main - [facility] [address], [address] [place] [address] 10/18/2022 23:20:03 10/18/19 23 10/18/2022 BMP, serum or plasm a K+ 4 Not Available Main - [facility] [address], [address] [place] [address] 10/18/2022 23:20:03 10/18/19 23 10/18/2022 BMP, serum or plasm a Na+ 138 Not Available [facility] - Ins [address], [address] [place] [address] 10/18/2022 23:20:03 10/18/19 23 10/18/2022 BMP, serum or plasm a tCO2 25 Not Available Main - [facility] [address], [address] [place] [address] 10/18/2022 23:20:03 12/12/19 23 12/11/2022 BMP, serum or plasm a BUN 11 Not Available [facility] - Ins [address], [address] [place] [address] 12/11/2022 17:06:59 12/12/19 23 12/11/2022 BMP, serum or plasm a Ca I az 1.26 Not Available [facility] - [address], [address] [place] [address] 12/11/2022 17:06:59 12/12/19 23 12/11/2022 BMP, serum or plasm a CI- 106 Not Available Main - [facility] [address], [address] [place] [address] 12/11/2022 17:06:59 12/12/19 23 12/11/2022 BMP, serum or plasm a CRE 0.6 Not Available [facility] - Ins [address], [address] [place] [address] 12/11/2022 17:06:59 12/12/19 23 12/11/2022 BMP, serum or plasm a GLU 146 Not Available Main - Ins [address], [address] 12/11/2022 17:06:59 12/12/19 23 12/11/2022 BMP, serum or plasm a K+ 3.9 Not Available Main - [facility] [address], [address] [place] [address] 12/11/2022 17:06:59 12/12/19 23 12/11/2022 BMP, serum or plasm a Na+ 140 Not Available Main - [facility] [address], [address] [place] [address] 12/11/2022 17:06:59 12/12/19 23 12/11/2022 BMP, serum or plasm a tCO2 19 Not Available Main - Ins [address], [address] [place] [address] 12/11/2022 17:06:59 05/06/20 23 05/06/2023 rapid flu (A+B) Flu negati ve Not Available [facility] [address] [place] [address], [address] [place] [address] 05/06/2023 12:56:53 05/06/2005/06/2023 rapid SARS CoV 2 Ag, QL IA, respi rator y speci men rapid SARS CoV 2 Ag, QL IA, respiratory specimen negati ve Not Available [facility] - [facility] [address] [place] [address], [address] [place] [address] 05/06/2023 12:56:51 05/07/2005/07/2023 BMP, serum or plasm a BUN 14 Not Available Main - Ins [address], [address] 05/06/2023 12:56:14 05/07/2005/07/2023 BMP, serum or plasm a Ca I AZ 5(nl) Not Available [facility] - [facility] [address] [place] [address], [phone] 05/06/2023 12:56:14 05/07/2005/07/2023 BMP, serum or plasm a CI- 103 Not Available Main - Ins [address], [phone] 05/06/2023 12:56:14 05/07/20 23 05/07/2023 BMP, serum or plasm a CRE 0.54 Not Available Main - Ins [address], [address] 05/06/2023 12:56:14 05/07/20 23 05/07/2023 BMP, serum or plasm a GLU 163 Not Available Main - Ins [address], [address] 05/06/2023 12:56:14 05/07/20 23 05/07/2023 BMP, serum or plasm a K+ 4.5 Not Available Main - Ins [address], [address] 05/06/2023 12:56:14 05/07/2005/07/2023 BMP, serum or plasm a Na+ 139 Not Available Main - [facility] [address], [address] [place] [address] 05/06/2023 12:56:14 05/07/2005/07/2023 BMP, serum or plasm a tCO2 23 Not Available Main - Ins [address], [address] 05/06/2023 12:56:14 Result Notes None recorded. Medical Equipment None Reported. Allergies Allergen ID Allergen Name Allergen Category Reaction Reaction Severity Criticality Documentation Date Start Date Code Code System Note Provider Name and Address Organization Details Recorded Time 1956 Product containin g angiotens in-conver ting enzyme inhibitor (product) medicatio n cough Not available Not available 10/18/2022 01955 009 SNOMED Ale Mendoza MD [address] [place] [address],[address], [place], [address], [email or web address] 3 22:57:07 1958 Bactrim medicatio n Not available Not available Not available 10/18/2022 46825 9 RxNorm Ale Mendoza MD [address] [place] [address],[address], [place], [address], [email or web address] 3 22:57:21 1959 Product containin g penicilli n (product) medicatio n Not available Not available Not available 10/18/2022 98279 8001 SNOMED Not Available [facility] - production [...] Available No t Available FreeStyle Khalif 2 [place] USE TO TEST BLOOD SUGAR THREE TIMES DAILY AND NEEDED active Not Available Not Available No t Available Vitals Date Recorded Body weight Respiratory rate Heart rate Body height Body temperature Oxygen saturation Oxygen saturation in Arterial blood by Pulse oximetry Systolic blood pressure Diastolic blood pressure Provider Name and Address Organization Details Last Updated DateTime 3 83905.6 4 g 16 /min 94 /min 162.56 [...] mm[Hg] 148 mm[Hg] 82 mm[Hg] Not Available [employer]{img} - production 3 12:02:20 Date Recorded Body weight Provider Name an d Address Organization Details Last Updated DateTime 10/18/2022 67167.22 g Kristy Acosta [address] [place] [address],[address], [place], [address], [place] - [facility] 10/18/2022 23:07:43 Date Recorded Respiratory rate Body [...] 3 18 /min 98.6 [degF] 100 /min 51583.8 g 98 % 98 % 157.48 cm 98.6 [degF] 07973.8 g 100 /min 18 /min 157.48 cm 98 % 98 % 135 mm[Hg] 87 mm[Hg] 135 mm[Hg] 87 mm[Hg] Not Available [employer] 3 13:15:40 Social History None recorded. Functional [...] 7998 Ale Mendoza MD [facility] [address] [place] [phone] 10/18/2022 11:17:31 10/21/2022 09:40:55 Gastroenteritis 06706799 K52.9 w/ GERD- advised BRAT/ bland diet- [...] 9573 Ale Mendoza MD Main - [facility] [address] [place] [address] 12/11/2022 11:50:55 12/13/2022 09:41:45 Abdominal pain 84032666 R10.9 w/ n/v/d- advised to hold the [...] lo threshold for going to the ED [id number] Ale Mendoza MD Main - [facility] [address] [place] [phone] 05/06/2023 12:51:33 05/07/2023 11:54:31 Abdominal pain 42971710 R10.9 w/ n/v/d- significan t abd distention and very elevated lactate- although remainder labs nl/ vss - concern for SBO/ risk for perforatio n/ intra-abdo bhanu infection/ early sepsis- advised needs imaging and further emergent eval / treatment in the ED- patient agreeable- report called to [place] [facility]. S medic arrived for EMS so [facility] medic rode in to continue IVF en route to the ER. Health Concerns Section Related Observation LastModified by Organization Detai ls LastModified Time None Recorded Concern Status LastModified by Organization Details LastModified Time None Recorded Advance Directives Directive None Recorded Payers Encounter Date Sequence Insurance Name Policy Number Policy Javier Covered Member ID Javier Member ID Guarantor Name 10/18/2022 1 [facility] - DOS PRIOR TO 2022 - DUAL ELIGIBLE (MEDICARE REPLACEMENT/ADV ANTAGE - HMO) Jacki Baker [id number] Jacki Baker 12/11/2022 1 [facility] - DOS PRIOR TO 2022 - DUAL ELIGIBLE (MEDICARE REPLACEMENT/ADV ANTAGE - HMO) Jacki Cottrellendez [id number] Jacki Lambertez 05/06/2023 1 [facility] - DOS ON OR AFTER 2022 - DUAL ELIGIBLE - [employer] AND ONE [employer] (MEDICARE REPLACEMENT/ADV ANTAGE - HMO) Jacki Lambertez [id number] Jacki Lambertez Notes Date Note Type Note Provider Name [...] ..................... ..................... ..................... ..................... ..................... ..................... ............... Forepart Rounder Note From Elias Washington: PT c/o n/v/d [...] and given 15mg Toradol ordered and given Forepart Rounder Allergies: Aspirin, Omeprazole, Penicillin ..................... ..................... ..................... [...] spells. Ale Mendoza MD [address] [facility],[address], [place], [address], [place] [employer] 10/18/2022 23:36:31 12/11/2022 text/html HPI: Call to [...] ..................... ..................... ..................... ..................... ..................... ..................... ............... Forepart Rounder Note From Steve Lozoya: Pt answers door, [...] zofran 4mg IV ? 2 BMP to [facility] via portal. Pt advised by [facility] to stop taking antibiotics until she can talk to her PCP, eat only BRAT diet (explained) and drink clear liquids. Red flags and pt education discussed. Forepart Rounder Allergies: Aspirin, Omeprazole, Penicillin, Trimethoprim-Sulfamet hoxazole ..................... [...] were presumptively treating diverticular disease or colitis. Pat has had left sided abd pain for awhile, however the patient is not improving on antibiotics/ she is worse the vomiting and diarrhea started s/p the antibiotics. She denies melena/ hematochezia or hematemesis. She reports eating small amt raw fruit yesterday and has been unable to tolerate liquids or solids today. She denies UTi s/s Ale Mendoza MD [address] [facility],[address], [place], [address], [email or web address] 12/11/2022 17:10:18 05/06/2023 text/html HPI: Vomiting and wants to make sure she is not dehydrated>has been experiencing symptoms for about 3 days. ..................... ..................... ..................... ..................... ..................... ..................... ............... CRC Nursing Assessment: Comments: Requestor unable to give additional details. ..................... ..................... ..................... ..................... ..................... ..................... ............... Forepart Rounder Note From Silvano Garcia: Pt reports n/v/d for three days. Pt denies CP, SOB, fevers, chills, hematochezia, hematemesis. Pt is alert, NAD. VSS. Afebrile. Neuro exam and gait normal. Lungs CTA. ABD is distended and tender in epigastric region. + BS x4. No LLE. Rapid covid and flu negative. POC BMP lactate 36.2. [facility] contacted and advised pt be seen in ED. 911 initiated. Normal saline 500 mg IV and Ondansetron 4 mg IVP administered en route to [facility] ED. [facility] clean out driller helper maintained all pt care until transfer of care to [facility] RN. [facility] Lab Orders: BMP, serum or plasma: Performed rapid SARS CoV 2 Ag, QL IA, respiratory specimen: Performed rapid flu (A+B): Performed ..................... ..................... ..................... ..................... ..................... ..................... ............... Disposition: Fulfilled Ale Mendoza MD [address] [place] [address],[address], [place], [phone], MARII DELUCA 05/07/2023 10:32:09 OBGyn Episode No OBEpisode recorded.
--- OUTSIDE RECORDS SUMMARY | 2024-12-01 13:20 | XMS_ITS | Encounter Summary ---
Author Organization [employer] Address [address] [facility] 7t [place] [address] Care Team Providers Care Climbing Guide Name Role Phone Karen Guthrie MD Primary Care Provider [phone] Reason for Referral * Imaging (STAT) - Closed Specialty Diagnoses / Procedures Referred By Contac t Referred To Contact Diagnoses LUQ pain Epigastric pain Procedures CT Abdomen Pelvis w/ Contrast Karen Guthrie MD 230 [place] [address] Phone: tel: fax: [facility] [address] [place] [address] Phone: tel: fax: Referral ID Status Reason Start Date Expiration Date Visits Re quested Visits Authorized [id number] Closed 01/02/2023 01/02/2024 1 1 Encounter Details Date Type Department Care Team (Late st Contact Info) Description 01/02/2023 Orders Only [facility] 230 [place], [place] [phone] Karen Guthrie MD [address] [place] [address] LUQ pain (Primary Dx); Epigastric [...] Description 01/21/2025 10:00 AM EDT Office Visit [facility] [address] [place], [place] [phone] RobertYocasta king, OD 230 [place] [address] Scheduled Orders Name Type Priority Associated Diagnoses Orde r Schedule CT Abdomen Pelvis w/ Contrast Imaging STAT LUQ pain Epigastric pain Expected: 01/02/2023, Expires: 01/03/2024 documented as of this encounter Visit Diagnoses Diagnosis LUQ pain- Primary Abdominal pain, left upper quadrant Epigastric pain Abdominal pain, epigastric documented in this encounter Care Teams Climbing Guide Relationship Specialty Start Date End Date Karen Guthrie MD [address] [place] [address] PCP - General Family Medicine 07/15/22 documented as of this encounter
--- OUTSIDE RECORDS SUMMARY | 2024-12-01 13:20 | XMS_ITS | Encounter Summary ---
Author Organization [employer] Address [address] [facility] [address] 7[address] [place] [address] Care Team Providers Care Payroll Director Name Role Phone Karen Guthrie MD Primary Care Provider [phone] Reason for Visit * Reason Comments Med Refill Encounter Details Date Type Department Care Team ([facility] Contact Info) Description 01/31/2024 Refill [facility] MEDICINE 230 [place], [place] [phone] Karen Guthrie MD [address] [place], [place] [phone] Vitamin D deficiency Social History Tobacco Use [...] Description 01/21/2025 10:00 AM EDT Office Visit [facility] OPTOMETRY [address] [place] [address] Robert, Yocasta, OD 230 [place] [address] documented as of this encounter Visit Diagnoses Diagnosis Vitamin D deficiency documented in this encounter Additional Health Concerns Assessment Noted Time PHQ-9 Depression Total Score: 14 024 1:04 PM EDT documented as of this encounter Care Teams Payroll Director Relationship Specialty Start Date End Date Karen Guthrie MD [address] [place] [address] PCP - General Family Medicine 07/15/22 documented as of this encounter
== END 2024-12-01 11:16 | disposition home or self-care (01) ==
LOC: HO.MAMMO 11:15
PROVIDERS: PCP General Practice; Visit Provider Advanced Practice Midwife
DX: N64.52 Nipple discharge (principal)
CPT/HCPCS: 76642; 77062; 77066

== ENCOUNTER → 2024-12-01 12:30 | Outpatient (BNV) | payer OTHER, SELFPAY | PROVIDERS: PCP General Practice; Visit Provider Internal Medicine | DX: N64.52 Nipple discharge (principal) | CPT/HCPCS: 76642; 77066; G0279 ==

== ENCOUNTER 2024-12-02 09:28 | Outpatient (REF) | payer OTHER, SELFPAY ==
--- OUTSIDE RECORDS SUMMARY | 2024-12-02 10:25 | XMS_ITS | Encounter Summary ---
Author Organization [employer] Address [address] 7[address] [place] [address] Care Team Providers Care Supervisor Calibration Name Role Phone Karen Guthrie MD Primary Care Provider [phone] Reason for Visit * Reason Onset Date Comments Results 12/01/2024 Encounter Details Date Type Department Care Team ([facility] Contact Info) Description 12/01/2024 Telephone [facility] MEDICINE 230 [place], [place] [phone] Fabiola Ortiz RN Results Social History Tobacco Use Types Packs/Day Years [...] encounter Miscellaneous Notes * Telephone Encounter - Fabiola Ortiz RN - 12/01/2024 3:48 PM EDT TC placed to pt with BLS anatomic pathologist # [id number] to inform of the results of pt breast US below. Pt advised that the findings could not show causation for her nipple discharge and that a follow up MRI was recommended. Pt will have the ordered BUN and CRE labs done within few weeks to confirm that she has clearance to have the imaging performed. ----- Message from Ne Bonilla sent at 12/01/2024 2:05 PM EDT ----- Please let Jacki know no obvious cause for nipple discharge noted on breast imaging. MRI advised, which I have ordered. She will need BUN/Creatinine prior to MRI which I have also ordered. Thanks! documented in this encounter Plan of Treatment Upcoming Encounters Date Type Department Care Team (Late st Contact Info) Description 01/21/2025 10:00 AM EDT Office Visit [facility] OPTOMETRY [address] [place], [place] [phone] Robert, Yocasta, OD [address] [place] [address] documented as of this encounter Visit Diagnoses Not on filedocumented in this encounter Additional Health Concerns Assessment Noted Time PHQ-9 Depression Total Score: 21 025 10:33 AM EDT documented as of this encounter Care Teams Supervisor Calibration Relationship Specialty Start Date End Date Karen Guthrie MD 230 [place] [address] PCP - General Family Medicine 07/15/22 documented as of this encounter
--- OUTSIDE RECORDS SUMMARY | 2024-12-02 10:25 | XMS_ITS | Encounter Summary ---
Author Organization [employer] Address [address] [facility] [address] 7t [place] [address] Care Team Providers Care Admissions Rn Name Role Phone Karen Guthrie MD Primary Care Provider [phone] Encounter Details Date Type Department Care Team ([facility] st Contact Info) Description 09/23/2024 Orders Only [facility] MEDICINE 230 [place], [place] [phone] Karen Guthrie MD 230 [place], [place] [phone] Social History Tobacco Use Types Packs/Day Years [...] 10:00 AM EDT Office Visit [facility] OPTOMETRY [address] [place] [address] Robert, Yocasta, OD 230 [place] [address] documented as of this encounter Visit Diagnoses Not on filedocumented in this encounter Additional Health Concerns Assessment Noted Time PHQ-9 Depression Total Score: 14 024 1:04 PM EDT documented as of this encounter Care Teams Admissions Rn Relationship Specialty Start Date End Date Karen Guthrie MD [address] [place], [place] [phone] PCP - General Family Medicine 07/15/22 documented as of this encounter
--- OUTSIDE RECORDS SUMMARY | 2024-12-02 10:25 | XMS_ITS | Encounter Summary ---
Author Organization [employer] Address [address] [facility] 7t [place] [address] Care Team Providers Care Technical Sales Engineer Name Role Phone Karen Guthrie MD Primary Care Provider [phone] Reason for Referral * Imaging (Routine) - Pending Review Specialty Diagnoses / Procedures Referred By Rosendo gilbert Referred To Contact Radiology Diagnoses Bloody discharge from right nipple Procedures BI MR Breast w/ and w/o Contrast Right Ne Bonilla CNM 230 [place] [address] Phone: tel: fax: [facility] [address] [place] [address] Phone: tel: fax: Referral ID Status Reason Start Date Expiration Date V isits Requested Visits Authorized [id number] Pending Review 12/01/2024 12/01/2025 1 1 Encounter Details Date Type Department Care Team (Late st Contact Info) Description 12/01/2024 Orders Only [facility] MEDICINE [address] [place], [place] [phone] Ne Bonilla CNM 230 [place], [place] [phone] Bloody discharge from right nipple (Primary Dx); Pre-procedure lab exam Social History Tobacco Use Types Packs/Day Years [...] Description 01/21/2025 10:00 AM EDT Office Visit [facility] OPTOMETRY [address] [place], [place] [phone] Robert, Yocasta, OD [address] [place] [address] Scheduled Orders Name Type Priority Associated Diagnoses Orde r Schedule BI MR Breast w/ and w/o Contrast Right Imaging Routine Bloody discharge from right nipple Expected: 12/01/2024, Expires: 12/01/2025 BUN (Blood Urea Nitrogen) Lab Routine Pre-procedure lab exam Expected: 12/01/2024 (Approximate), Expires: 12/01/2025 Creatinine, Serum Lab Routine Pre-procedure lab exam Expected: 12/01/2024 (Approximate), Expires: 12/01/2025 documented as of this encounter Visit Diagnoses Diagnosis Bloody discharge from right nipple- Primary Pre-procedure lab exam Pre-procedural laboratory examination documented in this encounter Additional Health Concerns Assessment Noted Time PHQ-9 Depression Total Score: 21 025 10:33 AM EDT documented as of this encounter Care Teams Technical Sales Engineer Relationship Specialty Start Date End Date Karen Guthrie MD 230 [place] [address] PCP - General Family Medicine 07/15/22 documented as of this encounter
--- OUTSIDE RECORDS SUMMARY | 2024-12-02 10:25 | XMS_ITS | Encounter Summary ---
Author Organization [facility] Address [address] [facility] 7t [place] [address] Care Team Providers Care Stack Clerk Name Role Phone Karen Guthrie MD Primary Care Provider [phone] Encounter Details Date Type Department Care Team (Late Contact Info) Description 01/10/2023 Orders Only [facility] MEDICINE 230 [place] [address] Karen Guthrie MD 230 [place] [address] Vomiting, unspecified vomiting type, unspecified whether nausea [...] Description 01/21/2025 10:00 AM EDT Office Visit [facility] OPTOMETRY [address] [place] [address] Robert, Yocasta, OD 230 [place] [address] Scheduled Orders Name Type Priority Associated Diagnoses Orde r Schedule Basic Metabolic Panel Lab Routine Vomiting, unspecified vomiting type, unspecified whether nausea present Expected: 01/10/2023 (Approximate), Expires: 01/11/2024 documented as of this encounter Visit Diagnoses Diagnosis Vomiting, unspecified vomiting type, unspecified whether nausea present- Primary documented in this encounter Care Teams Stack Clerk Relationship Specialty Start Date End Date Karen Guthrie MD [address] [place] [address] PCP - General Family Medicine 07/15/22 documented as of this encounter
--- OUTSIDE RECORDS SUMMARY | 2024-12-02 10:25 | XMS_ITS | Encounter Summary ---
Author Organization [employer] [facility] Address [address] [facility] 7t [place] [address] Care Team Providers Care Dorr Operator Name Role Phone Karen Guthrie MD Primary Care Provider [phone] Encounter Details Date Type Department Care Team (Late Contact Info) Description 01/31/2023 Orders Only [facility] MEDICINE [address] [place] [address] Karen Guthrie MD 230 [place] [address] Constipation, unspecified constipation type (Primary Dx) Social [...] [facility] OPTOMETRY [address] [place] [address] Robert, Yocasta, OD 230 [place] [address] documented as of this encounter Visit Diagnoses Diagnosis Constipation, unspecified constipation type- Primary documented in this encounter Care Teams Dorr Operator Relationship Specialty Start Date End Date Karen Guthrie MD 230 [place] [address] PCP - General Family Medicine 07/15/22 documented as of this encounter
--- OUTSIDE RECORDS SUMMARY | 2024-12-02 10:25 | XMS_ITS | Encounter Summary ---
Author Organization [employer] Address [address] [facility] [address] 7[address] [place] [address] Care Team Providers Care Television Repairman Name Role Phone Karen Guthrie MD Primary Care Provider [phone] Reason for Visit * Reason Comments Med Refill Encounter Details Date Type Department Care Team ([facility] Contact Info) Description 01/31/2024 Refill [facility] MEDICINE 230 [place], [place] [phone] Karen Guthrie MD 230 [place], [place] [phone] Vitamin D deficiency Social History Tobacco Use [...] 01/21/2025 10:00 AM EDT Office Visit [facility] OPTOMETRY [address] [place] [address] Robert, Yocasta, OD 230 [place] [address] documented as of this encounter Visit Diagnoses Diagnosis Vitamin D deficiency documented in this encounter Additional Health Concerns Assessment Noted Time PHQ-9 Depression Total Score: 14 024 1:04 PM EDT documented as of this encounter Care Teams Television Repairman Relationship Specialty Start Date End Date Karen Guthrie MD [address] [place] [address] PCP - General Family Medicine 07/15/22 documented as of this encounter
--- OUTSIDE RECORDS SUMMARY | 2024-12-02 10:25 | XMS_ITS | Encounter Summary ---
Author Organization [employer] Address [address] [facility] [address] 7[address] [place] [address] Care Team Providers Care Transportation Driver Name Role Phone Karen Guthrie MD Primary Care Provider [phone] Reason for Visit * Reason Comments Med Refill Encounter Details Date Type Department Care Team ([facility] Contact Info) Description 10/01/2023 Refill [facility] MEDICINE 230 [place], [place] [phone] Karen Guthrie MD 230 [place], [place] [phone] Type 2 diabetes mellitus with other specified complication, unspecified whether manager long term care insulin use ([facility]) Social History Tobacco Use Types Packs/Day Years [...] Description 01/21/2025 10:00 AM EDT Office Visit [facility] OPTOMETRY [address] [place], [place] [phone] Yocasta Jones, OD 230 [place] [address] documented as of this encounter Visit Diagnoses Diagnosis Type 2 diabetes mellitus with other specified complication, unspecified whether intermediate insulin use ([facility]) documented in this encounter Care Teams Transportation Driver Relationship Specialty Start Date End Date Karen Guthrie MD [address] [place] [address] PCP - General Family Medicine 07/15/22 documented as of this encounter
--- OUTSIDE RECORDS SUMMARY | 2024-12-02 10:25 | XMS_ITS | Encounter Summary ---
Author Organization [employer] [facility] Address [address] [facility] [address] 7t [place] [address] Care Team Providers Care Software Engineering Associate Manager Name Role Phone Karen Guthrie MD Primary Care Provider [phone] Encounter Details Date Type Department Care Team ([facility] Contact Info) Description 04/18/2023 Orders Only [facility] MEDICINE 230 [place] [address] Karen Guthrie MD 230 [place] [address] Social History Tobacco Use Types Packs/Day Years [...] Description 01/21/2025 10:00 AM EDT Office Visit [facility] OPTOMETRY [address] [place], [place] [phone] Robert, Yocasta, OD 230 [place] [address] documented as of this encounter Visit Diagnoses Not on filedocumented in this encounter Care Teams Software Engineering Associate Manager Relationship Specialty Start Date End Date Karen Guthrie MD [address] [place] [address] PCP - General Family Medicine 07/15/22 documented as of this encounter
--- OUTSIDE RECORDS SUMMARY | 2024-12-02 10:25 | XMS_ITS | Encounter Summary ---
Author Organization [employer] Address [address] [facility] 7t [place] [address] Care Team Providers Care Maintenance Superintendent Name Role Phone Karen Guthrie MD Primary Care Provider [phone] Reason for Referral * Imaging (STAT) - Closed Specialty Diagnoses / Procedures Referred By Contac t Referred To Contact Diagnoses LUQ pain Epigastric pain Procedures CT Abdomen Pelvis w/ Contrast Karen Guthrie MD 230 [place] [address] Phone: tel: fax: [facility] [address] [place] [address] Phone: tel: fax: Referral ID Status Reason Start Date Expiration Date Visits Re quested Visits Authorized [id number] Closed 01/02/2023 01/02/2024 1 1 Encounter Details Date Type Department Care Team (Late st Contact Info) Description 01/02/2023 Orders Only [facility] MEDICINE 230 [place], [place] [phone] Karen Guthrie MD [address] [place] [address] LUQ pain (Primary Dx); Epigastric [...] Description 01/21/2025 10:00 AM EDT Office Visit [facility] OPTOMETRY [address] [place], [place] [phone] RobertYocasta king, OD 230 [place] [address] Scheduled Orders Name Type Priority Associated Diagnoses Orde r Schedule CT Abdomen Pelvis w/ Contrast Imaging STAT LUQ pain Epigastric pain Expected: 01/02/2023, Expires: 01/03/2024 documented as of this encounter Visit Diagnoses Diagnosis LUQ pain- Primary Abdominal pain, left upper quadrant Epigastric pain Abdominal pain, epigastric documented in this encounter Care Teams Maintenance Superintendent Relationship Specialty Start Date End Date Karen Guthrie MD [address] [place] [address] PCP - General Family Medicine 07/15/22 documented as of this encounter
--- OUTSIDE RECORDS SUMMARY | 2024-12-02 10:25 | XMS_ITS | Encounter Summary ---
Author Organization [employer] [facility] Address [address] [facility] 7t [place] [address] Care Team Providers Care Top Precipitator Operator Name Role Phone Quang Vasques MD Primary Care Provider Karen Kang MD Primary Care Provider [phone] Encounter Details Date Type Department Care Team (Latest Contact Info) Description 09/04/2018 Abstract [facility] Dental, Provider, DDS Social History [...] Description 01/21/2025 10:00 AM EDT Office Visit [facility] OPTOMETRY [address] [place] [address] Yocasta Jones, OD 230 [place] [address] documented as of this encounter Visit Diagnoses Not on filedocumented in this encounter Care Teams Top Precipitator Operator Relationship Specialty Start Date End Date Quang Vasques MD PCP - General Family Medicine 02/15/20 07/14/22 Karen Guthrie MD [address] [place] [address] PCP - General Family Medicine 07/15/22 documented as of this encounter
--- OUTSIDE RECORDS SUMMARY | 2024-12-02 10:25 | XMS_ITS | Encounter Summary ---
Author Organization [employer] Address [address] [facility] [facility] [address] 7t [place] [address] Care Team Providers Care Atm Manager Name Role Phone Karen Guthrie MD Primary Care Provider Encounter Details Date Type Department Care Team (Late Contact Info) Description 12/16/2022 Orders Only [facility] MEDICINE 230 [place] [address] Karen Guthrie MD 230 [place] [address] Epigastric pain (Primary Dx) Social History Tobacco [...] Upcoming Encounters Date Type Department Care Team ([facility] Contact Info) Description 01/21/2025 10:00 AM EDT Office Visit [facility] OPTOMETRY [address] [place], [place] [phone] Yocasta Jones, OD [address] [facility] [place] [address] documented as of this encounter Procedures Procedure Name Priority Date/Time Associated Diagnosis Comments GLUCOSE, WHOLE BLOOD Routine 01/01/2023 10:57 AM EDT Epigastric pain GLUCOSE, WHOLE BLOOD Routine 01/01/2023 10:32 AM EDT Epigastric pain documented in this encounter Results * Glucose, Whole Blood (01/01/2023 10:57 AM EDT) Glucose, Whole Blood 95 60 - 115 mg/dL [facility] Comment:METER #: [id number] Testing performed in the Endocrinology Department [address] , [address], [facility]. 01/01/2023 10:5 7 AM EDT 01/01/2023 11:05 AM EDT [facility] External Provider LAB BLO OD ORDERABLES Final Result Performing Organization Address City/[facility]/ZIP Co de Phone Number [facility] [address] [place] [phone] * Glucose, Whole Blood (01/01/2023 10:32 AM EDT) Glucose, Whole Blood 60 60 - 115 mg/dL [facility] Comment:METER #: [id number] 5Testing performed in the Endocrinology Department [address] , [address], [facility]. 01/01/2023 10:3 2 AM EDT 01/01/2023 10:38 AM EDT [facility] External Provider LAB BLO OD ORDERABLES Final Result Performing Organization Address [facility]/ZIP Co de Phone Number [facility] [address] [place] [phone] documented in this encounter Visit Diagnoses Diagnosis Epigastric pain- Primary Abdominal pain, epigastric documented in this encounter Care Teams Atm Manager Relationship Specialty Start Date End Date Karen Guthrie MD [address] [place] [address] PCP - General Family Medicine 07/15/22 documented as of this encounter
--- OUTSIDE RECORDS SUMMARY | 2024-12-02 10:25 | XMS_ITS | Encounter Summary ---
Author Organization [employer] Address [address] [facility] [address] [place] [address] Care Team Providers Care Workday Consultant Name Role Phone Karen Guthrie MD Primary Care Provider [phone] Reason for Visit * Reason Onset Date Comments Med Refill 04/22/2024 Encounter Details Date Type Department Care Team ([facility] st Contact Info) Description 04/22/[address] [facility] MEDICINE [address] [place], [place] [phone] Karen Guthrie MD [address] [place] [address] Med Refill Social History Tobacco Use Types [...] 9:39 AM EDT Medication was sent to [facility] on 03/10/24 with 3 refills. * Telephone Encounter - Harry Deal - 04/22/2024 9:27 AM EDT TC from pt requesting medication refill. Medications needing refill : Continuous Glucose Sensor (FreeStyle Khalif 2 Sensor) misc To be sent to: [facility] documented in this encounter Plan of Treatment Upcoming Encounters Date Type Department Care Team (Late st Contact Info) Description 01/21/2025 10:00 AM EDT Office Visit [facility] OPTOMETRY [address] [place] [address] Yocasta Jones, OD 230 [place] [address] documented as of this encounter Visit Diagnoses Not on filedocumented in this encounter Additional Health Concerns Assessment Noted Time PHQ-9 Depression Total Score: 14 024 1:04 PM EDT documented as of this encounter Care Teams Workday Consultant Relationship Specialty Start Date End Date Karen Guthrie MD 230 [place] [address] PCP - General Family Medicine 07/15/22 documented as of this encounter
--- OUTSIDE RECORDS SUMMARY | 2024-12-02 10:26 | XMS_ITS | Clinical Summary ---
Author Organization [employer] Address [address] [facility] 7[address] [place] [address] Care Team Providers Care Occupational Therapy Asst Name Role Phone Karen Guthrie MD Primary Care Provider [phone] Allergies Active Allergy Reactions Criticality Noted Date [...] at bedtime. 023 Active Continuous Blood Gluc Technical Report Writer (LocaiStyle Khalif 2 [place]) device USE TO TEST BLOOD SUGAR THREE TIMES DAILY AND NEEDED 1 each 023 Active benztropine (Cogentin) 0.5 MG tablet Take 0.5 mg by mouth at bedtime. 023 Active NovoLOG FLEXPEN 100 UNIT/ML penIndications:T ype 2 diabetes mellitus with other specified complication, with long-term current use of insulin ([facility]) INJECT 12 UNITS SUBCUTANEOUSLY WITH BREAKFAST, [...] Continuous Glucose Sensor (FreeStyle Khalif 2 Sensor) [facility] BLOOD SUGAR THREE TIMES DAILY AND [...] mellitus with other specified complication, unspecified whether marine oil terminal superintendent insulin use ([facility]) TEST BLOOD SUGAR 4 TO 6 TIMES PER DAY 100 strip Active insulin pen needle (BD Pen Needle Inocencia U/F) 32G x 4 mm miscIndications: Type 2 diabetes mellitus with other specified complication, unspecified whether chcf insulin use ([facility]) USE DIRECTED TO INJECT DAILY 100 [...] mellitus with other specified complication, unspecified whether marine oil terminal superintendent insulin use ([facility]) TEST BLOOD SUGAR 4 TO 6 TIMES PER DAY 100 strip 5 024 2024 Discontinued(R eorder (will not trigger notification to Pharmacy)) insulin pen needle (Pentips) 32G x 4 mm miscIndications: Type 2 diabetes mellitus with other specified complication, unspecified whether chcf insulin use ([facility]) USE DIRECTED TO INJECT DAILY 100 [...] supposed to repeat Cscope in [address] [facility] Did not get scheduled, overdue In the [...] Encounters Date Type Department Care Team Description 12/01/2024 Telephone [facility] [address] [place] [id number] Fabiola Ortiz, RN Results 12/01/2024 Orders Only [address] [address] Farhat Phillip CNM Bloody discharge from right nipple (Primary Dx); Pre-procedure lab exam 11/30/[address] [address] Karen Guthrie MD Type 2 diabetes mellitus with other specified complication, unspecified whether chcf insulin use (CMS/HCC) 11/11/2024 Refill [facility] [address] [place], [place] [phone] Karen Guthrie MD Type 2 diabetes mellitus with other specified complication, unspecified whether marine oil terminal superintendent insulin use (CMS/HCC) 11/05/2024 11:00 AM EDT Office Visit [address] [address] Karen Guthrie MD Essential hypertension (Primary Dx); Type 2 diabetes mellitus with hyperglycemia, with long-term current use of insulin (CMS/HCC); Dietary counseling; Exercise counseling; Overweight; Recurrent major depressive episodes, moderate (CMS/HCC); Hyperlipidemia associated with type 2 diabetes mellitus (CMS/HCC) (CMS/HCC) 11/05/2024 Travel 10/29/2024 Patient Outreach [address] [address] Karen Guthrie MD Pre-visit Planning (SDOH screening negative and tobacco screening negative) 10/20/[address] [address] Karen Guthrie MD 10/19/2024 Orders Only [facility] [address] [place] [address] Farhat Phillip CNM Bloody discharge from right nipple (Primary Dx) 10/18/2024 2:00 PM EST Office Visit [address] [address] Farhat Phillip CNM Bloody discharge from right nipple (Primary Dx) 10/18/2024 Travel 10/14/2024 Telephone [facility] [address] [place] [address] Karen Guthrie MD Nurse Triage 10/01/2024 Orders Only GENERIC EXTERNAL DATA DEPARTMENT Provider, Generic External Data 09/23/2024 Orders Only [facility] [address] [place] [address] Karen Guthrie MD 09/22/2024 Refill [facility] [address] [place] [address] Karen Guthrie MD 09/10/2024 Telephone [facility] [address] [place], [place] [phone] Morena Sandoval [place] recall from Last 3 [...] Blood Pressure 106/72 11/05/2024 10:32 AM EDT ma nually Pulse 88 11/05/2024 10:32 AM EDT [...] Description 01/21/2025 10:00 AM EDT Office Visit [facility] [address] [place] [address] Yocasta Jones, OD [address] [place] [address] Health Maintenance Due Date Last Done Comments CT Colonography 1955 Colonoscopy 1955 FIT 1955 Sigmoidoscopy 1955 Eye Exam 1966 RSV Patients and Patients Aged 60 years or older (1 - Risk 60-74 years 1-dose series) 2016 FOBT 04/02/2024 04/02/2023 Diabetes: Urine Protein Screening 09/22/2024 09/22/2023, 03/22/2020 Diabetes: Hemoglobin A1C 02/05/2025 025, 12/19/2023, 09/22/2023, Additional history exists Depression Monitoring 05/08/2025 11/05/2024, 025 Diagnostic Breast Imaging 06/02/20252024, 12/01/2024, 07/29/2024, Additional history exists Alcohol/Substance Use Screening 10/18/2025 10/18/2024 SDOH Screening 10/29/2025 10/29/2024 Depression Screening 11/05/2025 11/05/2024, 11/06/19 25 Diabetes: Foot Exam 11/05/2025 11/05/2024 Lipid Panel [...] mellitus with other specified complication, unspecified whether chcf insulin use (CMS/HCC) HM FIT DNA/COLOGUARD CANCER SCREENING Routine 04/02/2023 from Last 3 Months or Most Recently Relevant to Health Maintenance Results * BI US Breast Limited Right (12/01/2024 12:20 PM EDT) Anatomical Region Laterality Modality Breast Right Ultrasound 12/01/2024 12:2 0 PM EDT Narrative 12/01/2024 1:00 PM EDT ? [facility] ? [address] ?[place] [address] ? Ultrasound Report ? Signed ? Patient: Jacki Baker I ?MR#: [id number] ?? [id number] ? : 1955 ?Acct:[id number] ? Age/Sex: 69 / F ?ADM Date: 12/01/24 ? Loc: HO.MAMMO ? Attending Dr: Farhat Phillip CNM ? Ordering Physician: FARHAT PHILLIP CNM ?? Date of Service: 12/01/24 ?? Procedure(s): US breast RT limited mamm only ?? Accession Number(s): [id number] ? cc: Karen Guthrie; FARHAT PHILLIP CNM [...] DD/ 1220 ? TD/TT: 12/01/24 1235 ? Pole Shaver Helper: ? Procedure Note Antolin, Image - 12/01/2024 [place] [facility] [address] [place] [address] Ultrasound Report Signed Patient: Jacki Baker [facility]#: [id number] : 1955cct:[id number] Age/Sex: 69 / FADM Date: 12/01/24 Loc: KULDIP Attending Dr: Farhat Phillip CNM Ordering Physician: FARHAT PHILLIP CNM Date of Service: 12/01/24 Procedure(s): US breast RT limited mamm only Accession Number(s): [id number] cc: Karen Guthrie; FARHAT PHILLIP CNM EXAMINATION: [...] 12/01/24 1257 DD/ 1220 TD/TT: 12/01/24 1235 Pole Shaver Helper: us Farhat Phillip CNM IMG US PROCEDURES Final R esult * BI Mammogram Diagnostic Tomosynthesis Bilateral (12/01/2024 12:15 PM EDT) Anatomical Region Laterality Modality Breast Bilateral Mammography 12/01/2024 12:1 5 PM EDT Narrative 12/01/2024 1:00 PM EDT ? [facility] ? [address] ?[place] [address] ?[phone] ? Mammography Report ? Signed ? Patient: Baker,Jacki I ?MR#: [id number] ?? [id number] ? : 1955 ?Acct:[id number] ? Age/Sex: 69 / F ?ADM Date: 12/01/24 ? Loc: HO.MAMMO ? Attending Dr: Farhat Phillip CNM ? Ordering Physician: FARHAT PHILLIP CNM ?Results: 1 ?? Negative ? Date of Service: 12/01/24 ?Follow Up: 1 Year From Orig ?? inal Mammogram ? Procedure(s): MM tomosynthesis diagnostic BI ?? Accession Number(s): [id number] ? cc: Karen Guthrie; FARHAT PHILLIP CNM [...] DD/ 1215 ? TD/TT: 12/01/24 1223 ? Pole Shaver Helper: ? Procedure Note Herson Dangelo - 12/01/2024 [facility] [address] [place], [place] [address] Mammography Report Signed Patient: Jacki Baker IMR#: [id number] : 1955cct:[id number] Age/Sex: 69 / FADM Date: 12/01/24 Loc: HO.MAMMO Attending Dr: Farhat Phillip CNM Ordering Physician: FARHAT PHILLIPesults: 1 Negative Date of Service: 12/01/24Follow Up: 1 Year From Orig inal Mammogram Procedure(s): MM tomosynthesis diagnostic BI Accession Number(s): [id number] cc: Karen Guthrie; FARHAT PHILLIP CNM EXAMINATION: [...] 12/01/24 1257 DD/ 1215 TD/TT: 12/01/24 1223 Pole Shaver Helper: Farhat BROWN IMG BI PROCEDURES Final R esult * Hepatitis C Antibody with Reflex to HCV, RNA, Quantitative, Real-Time PCR (11/05/2024 10:58 AM EDT) Hepatitis C Antibody Nonreactive Nonreactive [facility] Comment:Antibodies to HCV no t detected; does not exclude early acuteHCV infection. Blood Venous blood specimen / Unknown 11/05/2024 10:58 AM EDT 11/05/2024 1:32 PM EDT us Karen Guthrie MD LAB BLOOD ORDERABLES Final Res ult Performing Organization Address [facility] Co de Phone Number [facility] [address] [place] [phone] * (ABNORMAL) Lipid Panel, Standard (11/05/2024 10:58 AM EDT) Triglycerides 328(H) <150 mg/dL [facility] Comment:Desirable Triglyceri de: less than 150 mg/dLBorderline High Triglyceride 150-199 mg/dLHigh Triglyceride: 200-499 mg/dLVery High Triglyceride: greater than or equal to 5OO mg/dL Cholesterol 147 <200 mg/dL [facility] Comment:Desirable Cholestero l: less than 200 mg/dLBorderline High Cholesterol: 200-239 mg/dLHigh Cholesterol: greater than 239 mg/dL LDL Cholesterol Calculated 38 <100 mg/dL [facility] Comment:Desirable LDL: less than 100 mg/dLNear Optimal/Above Optimal LDL: 110- 129 mg/dLBorderline High LDL: 130-159 mg/dLHigh LDL: 160-189 mg/dLVery High LDL: greater than or equal to 190 mg/dL HDL Cholesterol 44 >40 mg/dL [facility] Comment:Desirable HDL: great er than 40 mg/dL Note: This HDL assay may give artificially low results in patients with liver disease. Blood Venous blood specimen / Unknown 11/05/2024 10:58 AM EDT 11/05/2024 1:32 PM EDT Karen Guthrie MD LAB BLOOD ORDERABLES Final Res ult Performing Organization Address [facility]/ZIP Co de Phone Number [facility] [address] [place] [phone] * (ABNORMAL) POCT HGB A1C (11/05/2024 10:35 AM EDT) Hemoglobin A1C 9.3(A) 4.0 - 6.0 % QC Media Lot # [id number] Lot# Expiration Date Blood 11/05/2024 10:3 5 AM EDT Karen Guthrie MD POINT OF CARE TEST ENTER/EDIT ORDERABLES Final Result * (ABNORMAL) POCT Glucose (11/05/2024 10:35 AM EDT) Glucose Blood, POC 382(A) 60 - 200 mg/dL Comment:Random QC Media Lot # [id number] Lot# Expiration Date [id number] Blood Capillary blood specimen / Unknown 11/05/2024 10:35 AM EDT Karen Guthrie MD POINT OF CARE TEST ENTER/EDIT ORDERABLES Final Result * (ABNORMAL) Glucose, Whole Blood (10/01/2024 9:19 AM EST) Glucose, Whole Blood 297(H) 60 - 115 mg/dL [facility] Comment:METER #: [id number] 5Testing performed in the Endocrinology Department [address] , [address], [facility]. 10/01/2024 9:19 AM EST 10/01/2024 9:27 AM EST Generic External Data Provider LAB BLOOD ORDERAB LES Final Result [facility] [address] [place] [phone] * (ABNORMAL) Albumin, Random Urine W/Creatinine (09/22/2023 9:54 AM EST) Creatinine, Urine 228.61 mg/dL [facility] Microalbumin Urine 1,362.0 mg/L [facility] Microalbum Creatinine Ratio Ur 595.7(H) <30 ug/mg cr [facility] Comment:Albumin/Creatinine R atio Reference Ranges: Normal: < 30 ug/mg creatinine Microalbuminuria: 30 - 300 ug/mg creatinineClinical Albuminuria: > 300 ug/mg creatinine Urine (Urine, Random) 09/22/2023 9:54 AM EST 09/22/2023 11:03 AM EST Karen Guthrie MD LAB URINE ORDERABLES Final Res ult [facility] [address] [place] [phone] * FIT DNA/Cologuard Cancer Screening (04/02/2023) Cologuard Cancer Screen Negative Stool Karen Guthrie MD HEALTH MAINTENANCE Final Resul t from Last 3 Months or Most Recently Relevant to Health Maintenance Insurance [facility] [place] [id number] Care Teams Occupational Therapy Asst Relationship Specialty Start Date End Date Karen Guthrie MD [address] [place] [address] PCP - General Family Medicine 07/15/22
--- OUTSIDE RECORDS SUMMARY | 2024-12-02 10:26 | XMS_ITS | Encounter Summary ---
Author Organization [employer] Address [address] [address] [place] [address] Care Team Providers Care Surveillance Technician Name Role Phone Karen Guthrie MD Primary Care Provider [phone] Reason for Visit * Reason Comments Med Refill Encounter Details Date Type Department Care Team ([facility] Contact Info) Description 11/30/2024 Refill [facility] [address] [place], [place] [phone] Karen Guthrie MD [address] [place], [place] [phone] Type 2 diabetes mellitus with other specified complication, unspecified whether exterminator insulin use ([facility]) Social History Tobacco Use Types [...] Description 01/21/2025 10:00 AM EDT Office Visit [facility] OPTOMETRY [address] [place] [address] Robert, Yocasta, OD [address] [place] [address] documented as of this encounter Visit Diagnoses Diagnosis Type 2 diabetes mellitus with other specified complication, unspecified whether custodial insulin use ([facility]) documented in this encounter Additional Health Concerns Assessment Noted Time PHQ-9 Depression Total Score: 21 025 10:33 AM EDT documented as of this encounter Care Teams Surveillance Technician Relationship Specialty Start Date End Date Karen Guthrie MD [address] [place] [address] PCP - General Family Medicine 07/15/22 documented as of this encounter
[2024-12-02 11:58] LABS: Blood Urea Nitrogen 13 mg/dL (9-16); Estimated Glomerular Filt Rate > 60
== END 2024-12-02 09:29 | disposition home or self-care (01) ==
LOC: HO.HHCL 09:28
PROVIDERS: Visit Provider Advanced Practice Midwife
DX: Z01.812 Encounter for preprocedural laboratory examination (principal)
CPT/HCPCS: 36415; 82565; 84520

== ENCOUNTER 2024-12-07 08:33 | Outpatient (AMB) | payer OTHER, SELFPAY ==
[2024-12-07 08:49] VITALS: BP 128/78; PULSE 90; O2SAT 96; BMI 23.5
--- NOTE | 2024-12-07 08:49 | A.OFFVIS_ITS ---
Vital Signs 12/07/24 08:49 Height 5 ft 6 in Weight 145 lb 8.081 oz BMI 23.5 BP 128/78 Blood Pressure Location Rt brachial Position Sitting Pulse 90 Pulse Source Pulse Oximeter Pulse Oximetry (%) 96 Oxygen Delivery Method Room Air Intake Visit Reasons: Abn Hepatic US. SUPERVISOR DOCK Intake Note: ESTABLISHED PATIENT for mgmt of hepatic abn. Recent US. Prev est with JM. Chief Complaint; C/O epigastric pain and bloating despite current regimen. Marketing Technology Specialist Required: Yes Marketing Technology Specialist Services: Marketing Technology Specialist Present Marketing Technology Specialist Name: Ford Lacey [id number] Information Interpreted: clinical only Accompanied by: Self / Same As Patient Allergies Penicillins [PENICILLINS] Allergy (Intermediate, Verified 12/07/24 08:49) ITCH/RASH sulfamethoxazole [From Bactrim] Allergy (Intermediate, Verified 12/07/24 08:49) RASH sumatriptan Allergy (Intermediate, Verified 12/07/24 08:49) rash trimethoprim [From Bactrim] Allergy (Intermediate, Verified 12/07/24 08:49) RASH pepperoni Allergy (Intermediate, Uncoded 12/07/24 08:49) rash HPI HPI Abn Hepatic US. SUPERVISOR DOCK: Details: LAST VISIT WITH [facility] 11/05/2023 A 68 y/o DM female- personal history of colon polyps presents chronic constipation taking senna and a powder- Last colonoscopy 2017--was to return for repeat in 6 months had never followed up. Was seen back in 2020 again rescheduled for colonoscopy she had not shown Reviewed medications- BM Q 2-3 days Appetite is poor- she reports about 20 lb wt loss-gets depressed no suicidal homicidal ideation Reviewed diet nothing specific Diabetes not well controlled No vomiting fever or chills. No hematemesis or hematochezia COLONOSCOPY 02/25/2024 Findings: Larynx:normal Esophagus: GE junction at 38 cm, diaphragm hiatus at 38 cm, b xtaken from GEJ and distal esophagus, normal appearing mucosa Stomach: Patchy erythema and scarring. Biopsies were obtained. Grade 2 flap valve on retroflexed examination of the cardia. Duodenum: Normal bulb and descending duodenum, Intervention: Biopsies as noted above, COLONOSCOPY Instrument: Olympus variable stiffness pediatric scope 190L Colonoscopy Monitoring: Vital signs and clinical assessment, continuous EKG monitoring, Pulse oximetry, Carbon Dioxide monitoring and blood pressure monitoring were done throughout the procedure. Colon withdrawal time was 12 minutes. Procedure: The patient was placed in the left lateral decubitis position and pre-procedure medications were administered. After a digital rectal examination of the ano-rectum, the video colonoscope was inserted into the rectum and advanced through the colon to the cecum/TI. The colonoscope was slowly withdrawn in a retrograde panoramic fashion and the colon mucosa was carefully examined including a retroflexed view of the rectum. Findings and interventions are described below. Procedure Difficulty:moderate Findings: Terminal Ileum-not intubated due to poor prep Cecum:normal Ascending Colon: normal Transverse Colon -normal Descending Colon: x 4 sessile polyps 4-8 mm, two removed with cold snare and two with cold forceps Sigmoid Colon: normal Rectum: Retroflexion with small internal hemorrhoids, grade I Anorectum - normal Colon preparation: Verdi Bowel Preparation Scale Right colon; 1 Transverse colon: 1-2 Left colon; 2 (0 = Unprepared colon segment with mucosa not seen due to solid stool that cannot be cleared. 1 = Portion of mucosa of the colon segment seen, but other areas of the colon segment not well seen due to staining, residual stool and/or opaque liquid. 2 = Minor amount of residual staining, small fragments of stool and/or opaque liquid, but mucosa of colon segment seen well. 3 = Entire mucosa of colon segment seen well with no residual staining, small fragments of stool or opaque liquid) Impression and Post Procedure Diagnosis: Endoscopy Findings: atrophic gastritis Colonoscopy Findings: colon polyps internal hemorrhoids Plan: Await Pathology results Repeat Colonoscopy in 6-12 months due to poor prep or earlier if clinically indicated High fiber diet leaflet avoid straining at stool, epsom salts and sitz bath, anusol supps or cream PATHOLOGY RESULTS Diagnosis A. Stomach, biopsy: Antral-type and oxyntic mucosa with moderate chronic inactive inflammation; no Helicobacter organisms seen. B. EG junction, biopsy: - Cardiac-type mucosa with moderate chronic inactive inflammation and focal intestinal metaplasia; negative for dysplasia. - Squamous mucosa within normal limits. C. Esophagus, distal, biopsy: Squamous mucosa within normal limits; no inflammation seen. D. Colon, descending, polypectomies (4): - Tubular adenomata (2); negative for high-grade dysplasia or carcinoma. - Colonic mucosa with mild surface hyperplastic changes. Comment: The findings in part B are consistent with Feng esophagus if sampled from the tubular esophagus TODAY'S VISIT: Patient is here today for requested visit. Sent to us by her experimental psychologist. Liver ultrasound with elastography done and possible fibrosis F3/F4. Patient had normal liver enzymes. Previously patient was seen by [facility] and was treated for acid reflux with omeprazole. Patient reports that she is still having acid reflux and epigastric pain postprandially every time after she eats. Patient reports constipation despite taking senna and Colace and still feels like is constipated. Patient reports frequent abdominal bloating a fter meals. Reports occasional nausea without vomiting. Denies melena, hematochezia, unintentional weight loss or ribbon like stools. Patient had 2 tubular adenomas on colonoscopy last year, moderate inactive inflammation in her stomach without H pylori, EG junction with moderate chronic inactive inflammation without intestinal dysplasia. [facility] Medical History Fatty liver Nephropathy Pre-ulcerative corn or callous Abnormal colonoscopy Colon adenomas Nausea & vomiting Irritable bowel syndrome with constipation History of hyperopia Gastroenteritis Memory impairment Hyperlipidemia Hypertension Myalgia and myositis Urinary incontinence Diabetes mellitus Depression Anxiety Insomnia History of lipoma Surgical History History of carpal tunnel surgery Hx of cataract extraction Hx of right breast biopsy Hx of colonoscopy History of esophagogastroduodenoscopy (EGD) Hx of foot surgery History of back surgery Hx of total hysterectomy Family History Mother Diabetes Father Prostate cancer Social History Household Members: None Household Members Other:: none Housing: Apartment Do you presently have visiting nurse or other home services: Yes ([employer] and [employer]) Alcohol intake: never Patient Tobacco Use Status: Never used Tobacco service: No Current occupational status: disabled Sexual orientation: Straight/Heterosexual Review of Systems Const Denies weight gain and Denies weight loss ENT Reports no additional complaints, Denies dysphagia and Denies odynophagia Card Reports no additional complaints Resp Reports no additional complaints GI Denies abdominal pain, Denies belching, Denies melena, Reports bloating, Denies change in bowel habits, Reports constipation, Denies dysphagia, Denies excessive flatus, Denies dyspepsia, Denies heartburn, Denies diarrhea, Denies loose stools, Denies nausea, Denies odynophagia and Denies vomiting Reports no additional complaints Musc Reports no additional complaints Neuro Reports no additional complaints Psych Reports no additional complaints Endo Reports no additional complaints Physical Exam Vital Signs: Last Vital Signs Pulse 90 12/07/24 08:49 BP 128/78 12/07/24 08:49 Pulse Ox 96 12/07/24 08:49 Oxygen Delivery Method Room Air 12/07/24 08:49 BMI result Body Mass Index 23.5 Const General: healthy appearing, no acute distress and well developed Nutritional Appearance: well nourished Orientation/consciousness: patient oriented x3 Resp Effort & Inspection: normal respiratory effort, able to speak in complete sentences, no tracheal deviation and symmetric chest movement Auscultation: clear to auscultation bilaterally Cardio Rate: regular rate GI Inspection: Yes normal to inspection and No distended Palpation (GI): Soft to palpation, not firm, nontender and No hepatosplenomegaly present Auscultation: normal bowel sounds General: Yes no CVA tenderness Back/Spine/Pelvis Back: no CVA tenderness Skin General skin exam: elasticity normal, turgor normal and dry skin Neuro General: patient oriented x3 Psych Appearance: grossly normal Mental Status: mental status grossly normal Results Reviewed Results Reviewed: LIVER ULTRASOUND WITH ELASTOGRAPHY 07/07/2024 FINDINGS: PANCREAS: The visualized pancreatic head and body are normal in appearance. The remainder of the pancreas is obscured from visualization by the overlying bowel gas. LIVER: The liver demonstrates normal size and contour but with increased echogenicity. No focal lesion or intrahepatic biliary duct dilatation. The right lobe measures 16.9 cm in length. The left lobe measures 12.0 cm in length. Shear wave elastography provides a median stiffness of 2.35 m/s (reference: normal median stiffness is 0.81 - 1.22 m/s). The IQR/median stiffness to assess sampling precision is 0.08 (reference: optimal IQR/median stiffness is under 0.3). GALLBLADDER: The gallbladder contains a small sludge ball but is physiologically distended without evidence of stones, polyps, wall thickening or pericholecystic fluid. COMMON BILE DUCT: Normal in caliber measuring 0.3 cm in diameter. RIGHT KIDNEY: No hydronephrosis. There is a mid renal cyst 4 mm echogenic focus with twinkle artifact consistent with a nonobstructing stone. No focal parenchymal lesions. The kidney measures 13 cm in maximum dimension. FREE FLUID: None seen. US/US abdomen aguilar w elastography IMPRESSION: 1. Echogenic liver consistent with hepatic steatosis 2. Elastography: Liver elastography measurements are consistent with a high risk for clinically significant liver fibrosis (METAVIR Stage F3-F Assessment & Plan Assessment & Plan (1) Fatty liver: Code(s): K76.0 - Fatty (change of) liver, not elsewhere classified Category: Medical (2) Abdominal pain: Comment: 68-year-old, noncompliant chronic GI complaints- Again reviewed previous labs and imaging reinforced importance of follow through with history of colon polyps inadequate prep. Seen ED 11/[address] no acute findings for her symptoms (adrenal) Code(s): R10.9 - Unspecified abdominal pain Category: Medical (3) Acid reflux: Comment: ppi- avoid culprits Code(s): K21.9 - Gastro-esophageal reflux disease without esophagitis Category: Medical (4) Chronic constipation: Comment: bowel regimen need colonoscopy- encouraged consistent bowel regimen Code(s): K59.09 - Other constipation Category: Medical (5) Postprandial abdominal bloating: Code(s): R14.0 - Abdominal distension (gaseous) (6) Tubular adenoma of colon: Code(s): D12.6 - Benign neoplasm of colon, unspecified Plan Will check liver panel and liver fibrosis panel. Patient will stop omeprazole and will start taking pantoprazole. Avoid dietary triggers and late night snacking. Staying upright for minimum 3 hours after meals discussed with patient. Patient will start taking Dulcolax daily. Increase fluid intake and activity to promote better bowel motility. Patient will return in 5 weeks to re-evaluate. She will need to go for colonoscopy. Patient is agreeable to this plan and verbalizes understanding of instructions. She was given the opportunity to ask questions and all questions answered. Thank you for allowing me to participate in her care Orders: Orders Liver Panel 12/07/24 R74.01 - Elevation of levels of liver transaminase levels Liver Fibrosis Pnl 12/07/24 K76.0 - Fatty (change of) liver, not elsewhere classified Medications: New pantoprazole take one tablet half an hour before breakfast 40 mg PO DAILY 30 tabs 2RF K21.9 - Gastro-esophageal reflux disease without esophagitis bisacodyl (Dulcolax (bisacodyl)) 10 mg (2 x 5 mg) PO BEDTIME 180 tabs 4RF Discontinued omeprazole Discontinued Reason: Doctor's Order 20 mg PO DAILY 30 caps 5RF Coding Level of Care Code Est Pt Level 4 (85737) Diagnoses Fatty liver K76.0 Abdominal pain R10.9 Acid reflux K21.9 Chronic constipation K59.09 Postprandial abdominal bloating R14.0 Tubular adenoma of colon D12.6 Time Spent (min) 40 Comment 25 minutes spent with patient and additional 15 minutes spent reviewing her records
--- OUTSIDE RECORDS SUMMARY | 2024-12-07 08:51 | XMS_ITS | Encounter Summary ---
Author Organization [employer] [facility] Address [address] [place] [address] Care Team Providers Care Orchard Hand Name Role Phone Quang Vasques MD Primary Care Provider Karen Kang MD Primary Care Provider [phone] Encounter Details Date Type Department Care Team (Latest Contact Info) Description 09/04/2018 Abstract [facility] CONVERSIONS Dental, Provider, DDS Social [...] Description 01/21/2025 10:00 AM EDT Office Visit [facility] OPTOMETRY [address] [place] [address] Yocasta Jones, OD [address] [place] [address] documented as of this encounter Visit Diagnoses Not on filedocumented in this encounter Care Teams Orchard Hand Relationship Specialty Start Date End Date Quang Vasques MD PCP - General Family Medicine 02/15/20 07/14/22 Karen Guthrie MD [address] [place] [address] PCP - General Family Medicine 07/15/22 documented as of this encounter
--- OUTSIDE RECORDS SUMMARY | 2024-12-07 08:51 | XMS_ITS | Encounter Summary ---
Author Organization [employer] Address [address] [place] [address] Care Team Providers Care Compounding And Finishing Supervisor Name Role Phone Karen Guthrie MD Primary Care Provider Encounter Details Date Type Department Care Team ([facility] st Contact Info) Description 09/23/2024 Orders Only [facility] MEDICINE [address] [place], [place] [phone] Karen Guthrie MD [address] [place], [place] [phone] Social History Tobacco Use Types Packs/Day Years [...] Description 01/21/2025 10:00 AM EDT Office Visit [facility] OPTOMETRY [address] [place] [address] Robert, Yocasta, OD [address] [place] [address] documented as of this encounter Visit Diagnoses Not on filedocumented in this encounter Additional Health Concerns Assessment Noted Time PHQ-9 Depression Total Score: 14 024 1:04 PM EDT documented as of this encounter Care Teams Compounding And Finishing Supervisor Relationship Specialty Start Date End Date Karen Guthrie MD [address] [place], [place] [phone] PCP - General Family Medicine 07/15/22 documented as of this encounter
--- OUTSIDE RECORDS SUMMARY | 2024-12-07 08:51 | XMS_ITS | Encounter Summary ---
Author Organization [facility] [facility] Address [address] [place] [address] Care Team Providers Care Hr Consultant Name Role Phone Karen Guthrie MD Primary Care Provider [phone] Encounter Details Date Type Department Care Team (Late Contact Info) Description 01/31/2023 Orders Only [facility] MEDICINE [address] [place] [address] Karen Guthrie MD [address] [place] [address] Constipation, unspecified constipation type (Primary Dx) Social [...] 01/21/2025 10:00 AM EDT Office Visit [facility] OPTOMETRY [address] [place] [address] Robert, Yocasta, OD [address] [place] [address] documented as of this encounter Visit Diagnoses Diagnosis Constipation, unspecified constipation type- Primary documented in this encounter Care Teams Hr Consultant Relationship Specialty Start Date End Date Karen Guthrie MD [address] [place] [address] PCP - General Family Medicine 07/15/22 documented as of this encounter
--- OUTSIDE RECORDS SUMMARY | 2024-12-07 08:51 | XMS_ITS | Encounter Summary ---
Author Organization [employer] [facility] Address [address] [place] [address] Care Team Providers Care Locker Operator Name Role Phone Karen Guthrie MD Primary Care Provider [phone] Encounter Details Date Type Department Care Team ([facility] Contact Info) Description 04/18/2023 Orders Only [facility] MEDICINE [address] [place] [address] Karen Guthrie MD [address] [place] [address] Social History Tobacco Use Types Packs/Day Years [...] Description 01/21/2025 10:00 AM EDT Office Visit [facility] OPTOMETRY [address] [place], [place] [phone] Robert, Yocasta, OD [address] [place] [address] documented as of this encounter Visit Diagnoses Not on filedocumented in this encounter Care Teams Locker Operator Relationship Specialty Start Date End Date Karen Guthrie MD [address] [place] [address] PCP - General Family Medicine 07/15/22 documented as of this encounter
--- OUTSIDE RECORDS SUMMARY | 2024-12-07 08:51 | XMS_ITS | Encounter Summary ---
Author Organization [employer] [facility] Address [address] [place] [address] Care Team Providers Care Mechanical Design Drafter Name Role Phone Karen Guthrie MD Primary Care Provider [phone] Encounter Details Date Type Department Care Team (Late Contact Info) Description 01/10/2023 Orders Only [facility] MEDICINE [address] [place] [address] Karen Guthrie MD [address] [place] [address] Vomiting, unspecified vomiting type, unspecified whether nausea [...] Description 01/21/2025 10:00 AM EDT Office Visit [facility] OPTOMETRY [address] [place] [address] Robert, Yocasta, OD [address] [place] [address] Scheduled Orders Name Type Priority Associated Diagnoses Orde r Schedule Basic Metabolic Panel Lab Routine Vomiting, unspecified vomiting type, unspecified whether nausea present Expected: 01/10/2023 (Approximate), Expires: 01/11/2024 documented as of this encounter Visit Diagnoses Diagnosis Vomiting, unspecified vomiting type, unspecified whether nausea present- Primary documented in this encounter Care Teams Mechanical Design Drafter Relationship Specialty Start Date End Date Karen Guthrie MD [address] [place] [address] PCP - General Family Medicine 07/15/22 documented as of this encounter
--- OUTSIDE RECORDS SUMMARY | 2024-12-07 08:52 | XMS_ITS | Encounter Summary ---
Author Organization [employer] Address [address] [place] [address] Care Team Providers Care Caddy/Caddie Supervisor Name Role Phone Karen Guthrie MD Primary Care Provider [phone] Reason for Visit * Reason Comments Med Refill Encounter Details Date Type Department Care Team ([facility] Contact Info) Description 01/31/[address] [facility] MEDICINE [address] [place], [place] [phone] Karen Guthrie MD [address] [place], [place] [phone] Vitamin D deficiency Social History Tobacco Use [...] 01/21/2025 10:00 AM EDT Office Visit [facility] OPTOMETRY [address] [place] [address] Robert, Yocasta, OD [address] [place] [address] documented as of this encounter Visit Diagnoses Diagnosis Vitamin D deficiency documented in this encounter Additional Health Concerns Assessment Noted Time PHQ-9 Depression Total Score: 14 024 1:04 PM EDT documented as of this encounter Care Teams Caddy/Caddie Supervisor Relationship Specialty Start Date End Date Karen Guthrie MD [address] [place] [address] PCP - General Family Medicine 07/15/22 documented as of this encounter
--- OUTSIDE RECORDS SUMMARY | 2024-12-07 08:52 | XMS_ITS | Encounter Summary ---
Author Organization [employer] Address [address] [place] [address] Care Team Providers Care Vp Business Development Name Role Phone Karen Guthrie MD Primary Care Provider [phone] Reason for Visit * Reason Onset Date Comments Med Refill 04/22/2024 Encounter Details Date Type Department Care Team ([facility] st Contact Info) Description 04/22/2024 Telephone [facility] MEDICINE [address] [place], [place] [phone] Karen Guthrie MD [address] [place] [address] Med Refill Social History Tobacco Use Types [...] Miscellaneous Notes * Telephone Encounter - Magy Chaudhayr LPN - 04/22/2024 9:39 AM EDT Medication was sent to [facility] on 03/10/24 with 3 refills. * Telephone Encounter - Harry Deal - 04/22/2024 9:27 AM EDT TC from pt requesting medication refill. Medications needing refill : Continuous Glucose Sensor (FreeStyle Khalif 2 Sensor) misc To be sent to: [facility] documented in this encounter Plan of Treatment Upcoming Encounters Date Type Department Care Team (Late st Contact Info) Description 01/21/2025 10:00 AM EDT Office Visit [facility] OPTOMETRY [address] [place] [address] Yocasta Jones, OD [address] [place] [address] documented as of this encounter Visit Diagnoses Not on filedocumented in this encounter Additional Health Concerns Assessment Noted Time PHQ-9 Depression Total Score: 14 024 1:04 PM EDT documented as of this encounter Care Teams Vp Business Development Relationship Specialty Start Date End Date Karen Guthrie MD [address] [place] [address] PCP - General Family Medicine 07/15/22 documented as of this encounter
--- OUTSIDE RECORDS SUMMARY | 2024-12-07 08:52 | XMS_ITS | Encounter Summary ---
Author Organization [employer] Address [address] [place] [address] Care Team Providers Care Assistant County Engineer Name Role Phone Karen Guthrie MD Primary Care Provider [phone] Reason for Visit * Reason Onset Date Comments Results 12/02/2024 Encounter Details Date Type Department Care Team ([facility] Contact Info) Description 12/02/[address] [facility] MEDICINE [address] [place] [address] Karen Guthrie MD [address] [place] [address] Results Social History Tobacco Use Types Packs/Day [...] encounter Miscellaneous Notes * Telephone Encounter - Yolanda Nova RN - 12/02/2024 10:31 AM EDT Tc placed to patient using [employer]#ID [id number] regarding below message. RN informed patient of lab results. Patient was informed by RN that her triglycerides are elevated. RN advised patient to eat animal products in moderation. Patient reported she is interested in taking fish oil. Pt verbalized understanding. Pt to F/U PRN. ----- Message from Karen Guthrie MD sent at 12/02/2024 7:46 AM EDT ----- Please let patient know that her results are normal, except elevated triglycerides (fatty particlesin blood), which have been present for past two years. Recommend eating less animal products, if possible. Also if she is open to fish oil supplement, that can help lower triglycerides as well. documented in this encounter Plan of Treatment Upcoming Encounters Date Type Department Care Team (Late st Contact Info) Description 01/21/2025 10:00 AM EDT Office Visit [facility] OPTOMETRY [address] [place] [address] Yocasta Jones, OD [address] [place] [address] documented as of this encounter Visit Diagnoses Not on filedocumented in this encounter Additional Health Concerns Assessment Noted Time PHQ-9 Depression Total Score: 21 025 10:33 AM EDT documented as of this encounter Care Teams Assistant County Engineer Relationship Specialty Start Date End Date Karen Guthrie MD [address] [place] [address] PCP - General Family Medicine 07/15/22 documented as of this encounter
--- OUTSIDE RECORDS SUMMARY | 2024-12-07 08:52 | XMS_ITS | Encounter Summary ---
Author Organization [employer] Address [address] [facility]t [place] [address] Care Team Providers Care Assistant Auto Center Manager Name Role Phone Karen Guthrie MD Primary Care Provider [phone] Reason for Visit * Reason Comments Med Refill Encounter Details Date Type Department Care Team ([facility] Contact Info) Description 10/01/2023 Refill [facility] MEDICINE [address] [place], [place] [phone] Karen Guthrie MD [address] [place], [place] [phone] Type 2 diabetes mellitus with other specified complication, unspecified whether joint terminal attack controller insulin use ([facility]) Social History Tobacco Use Types Packs/Day Years [...] 10:00 AM EDT Office Visit [facility] OPTOMETRY [address] [place], [place] [phone] Yocasta Jones, OD [address] [place] [address] documented as of this encounter Visit Diagnoses Diagnosis Type 2 diabetes mellitus with other specified complication, unspecified whether mcfp insulin use (CMS/[facility]) documented in this encounter Care Teams Assistant Auto Center Manager Relationship Specialty Start Date End Date Karen Guthrie MD [address] [place] [address] PCP - General Family Medicine 07/15/22 documented as of this encounter
--- OUTSIDE RECORDS SUMMARY | 2024-12-07 08:52 | XMS_ITS | Clinical Summary ---
Author Organization [employer] Address [address] [facility] 7t [place] [address] Care Team Providers Care Senior Ssis Developer Name Role Phone Karen Guthrie MD Primary Care Provider [phone] Allergies Active Allergy Reactions Criticality Noted Date [...] at bedtime. 023 Active Continuous Blood Gluc Certified Alcohol Drug Counselor ([employer] Khalif 2 [place]) device USE TO TEST BLOOD SUGAR THREE TIMES DAILY AND NEEDED 1 each 023 Active benztropine (Cogentin) 0.5 MG tablet Take 0.5 mg by mouth at bedtime. 023 Active NovoLOG FLEXPEN 100 UNIT/ML penIndications:T ype 2 diabetes mellitus with other specified complication, with long-term current use of insulin ([facility]) INJECT 12 UNITS SUBCUTANEOUSLY WITH BREAKFAST, INJECT [...] Continuous Glucose Sensor (FreeStyle Khalif 2 Sensor) [facility] TEST BLOOD SUGAR THREE TIMES DAILY [...] mellitus with other specified complication, unspecified whether termite inspector insulin use ([facility]) TEST BLOOD SUGAR 4 TO 6 TIMES PER DAY 100 strip Active insulin pen needle (BD Pen Needle Inocencia U/F) 32G x 4 mm miscIndications: Type 2 diabetes mellitus with other specified complication, unspecified whether senior care insulin use ([facility]) USE DIRECTED TO INJECT DAILY 100 each [...] mellitus with other specified complication, unspecified whether termite inspector insulin use ([facility]) TEST BLOOD SUGAR 4 TO 6 TIMES PER DAY 100 strip 5 024 2024 Discontinued(R eorder (will not trigger notification to Pharmacy)) insulin pen needle (Pentips) 32G x 4 mm miscIndications: Type 2 diabetes mellitus with other specified complication, unspecified whether senior care insulin use ([facility]) USE DIRECTED TO INJECT DAILY 100 each [...] Encounters Date Type Department Care Team Description 12/07/2024 Refill [facility] MEDICINE [address] [place] [address] Karen uGthrie MD 12/02/2024 Telephone [facility] MEDICINE [address] [place] [address] Karen Guthrie MD Results 12/01/2024 Telephone [facility] [address] [place] [phone] Fabiola Ortiz, ROSITA Results 12/01/2024 Orders Only [facility] MEDICINE [address] [place] [phone] Farhat Phillip CNM Bloody discharge from right nipple (Primary Dx); Pre-procedure lab exam 11/30/2024 Refill [facility] MEDICINE [address] [place] [address] Karen Guthrie MD Type 2 diabetes mellitus with other specified complication, unspecified whether termite inspector insulin use (CMS/HCC) 11/11/2024 Refill [facility] MED & PEDS [address] [place], [place] [phone] Karen Guthrie MD Type 2 diabetes mellitus with other specified complication, unspecified whether termite inspector insulin use (CMS/HCC) 11/05/2024 11:00 AM EDT Office Visit [facility] MEDICINE [address] [place] [phone] Karen Guthrie MD Essential hypertension (Primary Dx); Type 2 diabetes mellitus with hyperglycemia, with long-term current use of insulin (CMS/HCC); Dietary counseling; Exercise counseling; Overweight; Recurrent major depressive episodes, moderate (CMS/HCC); Hyperlipidemia associated with type 2 diabetes mellitus (CMS/HCC) (CMS/HCC) 11/05/2024 Travel 10/29/2024 Patient Outreach [facility] [address] [place] [phone] Karen Guthrie MD Pre-visit Planning (SDOH screening negative and tobacco screening negative) 10/20/2024 Refill [facility] MEDICINE [address] [place] [address] Karen Guthrie MD 10/19/2024 Orders Only [facility] MED[facility] [address] [place] [phone] Farhat Phillip CNM Bloody discharge from right nipple (Primary Dx) 10/18/2024 2:00 PM EST Office Visit [address] [address] Farhat Phillip CNM Bloody discharge from right nipple (Primary Dx) 10/18/2024 Travel 10/14/[address] [address] Karen Guthrie MD Nurse Triage 10/01/2024 Orders Only GENERIC EXTERNAL DATA DEPARTMENT Provider, Generic External Data 09/23/2024 Orders Only [address] [phone] Karen Guthrie MD 09/22/2024 Refill [facility] MED [facility] PEDS [address] [place], [place] [phone] Karen Guthrie MD 09/10/[address] [address] Morena Sandoval [place] recall from Last 3 [...] Description 01/21/2025 10:00 AM EDT Office Visit [facility] OPTOMETRY [address] [place] [address] Robert, Yocasta, OD [address] [place] [address] Health Maintenance Due Date Last Done Comments [...] Procedure Name Priority Date/Time Associated Diagnosis Comments CREATININE, SERUM Routine 12/02/2024 9:3 1 AM EDT Pre-procedure lab exam UREA NITROGEN (BUN) Routine 12/02/2024 9 :31 AM EDT Pre-procedure lab exam BI US BREAST LIMITED RIGHT STAT 12/01/2024 12:20 PM EDT Bloody discharge from right nipple BI MAMMOGRAM DIAGNOSTIC TOMOSYNTHESIS BILATERAL STAT 12/01/2024 12:15 PM EDT Bloody discharge from right nipple HEPATITIS C AB W/REFL TO HCV RNA, QN, PCR Routine 11/05/2024 10:58 AM EDT Type 2 diabetes mellitus with hyperglycemia, with long-term current use of insulin ([facility]) LIPID PANEL, STANDARD Routine 11/05/2024 10:58 AM EDT Type 2 diabetes mellitus with hyperglycemia, with long-term current use of insulin ([facility]) POCT GLYCATED HEMOGLOBIN, TOTAL Routine 11/05/2024 10:35 AM EDT Type 2 diabetes mellitus with hyperglycemia, with long-term current use of insulin ([facility]) POCT GLUCOSE Routine 11/05/2024 10:35 AM EDT Type 2 diabetes mellitus with hyperglycemia, with long-term current use of insulin ([facility]) GLUCOSE, WHOLE BLOOD Routine 10/01/2024 9:19 AM EST ALBUMIN, RANDOM URINE W/CREATININE Routine 09/22/2023 9:54 AM EST Type 2 diabetes mellitus with other specified complication, unspecified whether senior care insulin use ([facility]) FIT DNA/COLOGUARD CANCER SCREENING Routine 04/02/2023 from Last 3 Months or Most Recently Relevant to Health Maintenance Results * Creatinine, Serum (12/02/2024 9:31 AM EDT) Creatinine, Serum 0.91 0.5 - 1.4 mg/dL [facility] Estimated Glomerular Filt Rate >60 [facility] Comment:Chronic Kidney Disea se: Estimated GFR < 60 mL/min/[id number] Kidney Disease: Estimated GFR < 15 mL/min/1.73m2 Blood Venous blood specimen / Unknown 12/02/2024 9:31 AM EDT 12/02/2024 11:34 AM EDT us Farhat Phillip [facility] LAB BLOOD ORDERABLES Brit antonio Result [facility] [address] [place], [place] [phone] * BUN (Blood Urea Nitrogen) (12/02/2024 9:31 AM EDT) Urea Nitrogen (BUN) 13 9 - 16 mg/dL [facility] Blood Venous blood specimen / Unknown 12/02/2024 9:31 AM EDT 12/02/2024 11:34 AM EDT us Farhat Finchdipika CNM LAB BLOOD ORDERABLES Brit l Result [facility] [address] [place] [address] [phone] * BI US Breast Limited Right (12/01/2024 12:20 PM EDT) Anatomical Region Laterality Modality Breast Right Ultrasound 12/01/2024 12:2 0 PM EDT Narrative 12/01/2024 1:00 PM EDT ? [facility] [place] ? [address] ?[place] [address] ? Ultrasound Report ? Signed ? Patient: Jacki Baker I ?MR#: [id number] ?? [id number] ? : 1955 ?Acct:[id number] ? Age/Sex: 69 / F ?ADM Date: 12/01/24 ? Loc: HO.MAMMO ? Attending Dr: Farhat Phillip CNM ? Ordering Physician: FARHAT PHILLIP CNM ?? Date of Service: 12/01/24 ?? Procedure(s): US breast RT limited mamm only ?? Accession Number(s): [id number] ? cc: Karen Guthrie; FARHAT PHILLIP CNKristy ? EXAMINATION: ?? MM DIAGNOSTIC DIGITAL BREAST [...] of visit by the ?? technologist. ? US/ breast RT limited mamm only ?? IMPRESSION: [...] DD/ 1220 ? TD/TT: 12/01/24 1235 ? Campus President: ? Procedure Note Antolin, Image - 12/01/2024 [place] [facility] [address] [place] [address] Ultrasound Report Signed Patient: Jacki Baker IMR#: [id number] : 7Acct:[id number] Age/Sex: 69 / FADM Date: 12/01/24 Loc: KULDIP Attending Dr: Farhat Phillip CNM Ordering Physician: FARHAT PHILLIP CNM Date of Service: 12/01/24 Procedure(s): US breast RT limited mamm only Accession Number(s): [id number] cc: Karen Guthrie; FARHAT PHILLIP CNM EXAMINATION: [...] 12/01/24 1257 DD/ 1220 TD/TT: 12/01/24 1235 Campus President: us Farhat Phillip CNM IMG US PROCEDURES Final R esult * BI Mammogram Diagnostic Tomosynthesis Bilateral (12/01/2024 12:15 PM EDT) Anatomical Region Laterality Modality Breast Bilateral Mammography 12/01/2024 12:1 5 PM EDT Narrative 12/01/2024 1:00 PM EDT ? [facility] ? [address] ?[place] [address] ?[phone] ? Mammography Report ? Signed ? Patient: Baker,Jacki I ?MR#: [id number] ?? [id number] ? : 1955 ?Acct:[id number] ? Age/Sex: 69 / F ?ADM Date: 12/01/24 ? Loc: HO.MAMMO ? Attending Dr: Farhat Phillip CNM ? Ordering Physician: FARHAT PHILLIP CNKristy ?Results: 1 ?? Negative ? Date of Service: 12/01/24 ?Follow Up: 1 Year From Orig ?? inal Mammogram ? Procedure(s): MM tomosynthesis diagnostic BI ?? Accession Number(s): [id number] ? cc: Karen Guthrie; FARHAT PHILLIP CNM [...] DD/ 1215 ? TD/TT: 12/01/24 1223 ? Campus President: ? Procedure Note Herson Dangelo - 12/01/2024 [place] [facility] [address] [place] [address] Mammography Report Signed Patient: Jacki Baker [facility]#: [id number] : 7Acct:[id number] Age/Sex: 69 / FADM Date: 12/01/24 Loc: NICOLEO Attending Dr: Farhat Phillip CNKristy Ordering Physician: FARHAT PHILLIPesults: 1 Negative Date of Service: 12/01/24Follow Up: 1 Year From Orig inal Mammogram Procedure(s): MM tomosynthesis diagnostic BI Accession Number(s): [id number] cc: Karen Guthrie; FARHAT PHILLIP CNM EXAMINATION: [...] 12/01/24 1257 DD/ 1215 TD/TT: 12/01/24 1223 Campus President: Farhat Phillip CNM IMG BI PROCEDURES Final R esult * Hepatitis C Antibody with Reflex to HCV, RNA, Quantitative, Real-Time PCR (11/05/2024 10:58 AM EDT) Hepatitis C Antibody Nonreactive Nonreactive [facility] Comment:Antibodies to HCV no t detected; does not exclude early acuteHCV infection. Blood Venous blood specimen / Unknown 11/05/2024 10:58 AM EDT 11/05/2024 1:32 PM EDT Karen Guthrie MD LAB BLOOD ORDERABLES Final Res ult Performing Organization Address [facility] Co de Phone Number [facility] [address] [place] [address] [phone] * (ABNORMAL) Lipid Panel, Standard (11/05/2024 10:58 AM EDT) Triglycerides 328(H) <150 mg/dL [facility] Comment:Desirable Triglyceri de: less than 150 mg/dLBorderline High Triglyceride 150-199 mg/dLHigh Triglyceride: 200-499 mg/dLVery High Triglyceride: greater than or equal to 5OO mg/dL Cholesterol 147 <200 mg/dL [facility] Comment:Desirable Cholestero l: less than 200 mg/dLBorderline High Cholesterol: 200-239 mg/dLHigh Cholesterol: greater than 239 mg/dL LDL Cholesterol Calculated 38 <100 mg/dL [facility] Comment:Desirable LDL: less than 100 mg/dLNear Optimal/Above Optimal LDL: 110- 129 mg/dLBorderline High LDL: 130-159 mg/dLHigh LDL: 160-189 mg/dLVery High LDL: greater than or equal to 190 mg/dL HDL Cholesterol 44 >40 mg/dL [facility] Comment:Desirable HDL: great er than 40 mg/dL Note: This HDL assay may give artificially low results in patients with liver disease. Blood Venous blood specimen / Unknown 11/05/2024 10:58 AM EDT 11/05/2024 1:32 PM EDT Karen Guthrie MD LAB BLOOD ORDERABLES Final Res ult Performing Organization Address [facility]/ZIP Co de Phone Number [facility] [address] [place] [address] [phone] * (ABNORMAL) POCT HGB A1C (11/05/2024 10:35 AM EDT) Hemoglobin A1C 9.3(A) 4.0 - 6.0 % QC Media Lot # [id number] Lot# Expiration Date [id number] Blood 11/05/2024 10:3 5 AM EDT Karen Guthrie MD POINT OF CARE TEST ENTER/EDIT ORDERABLES Final Result * (ABNORMAL) POCT Glucose (11/05/2024 10:35 AM EDT) Glucose Blood, POC 382(A) 60 - 200 mg/dL Comment:Random QC Media Lot # [id number] Lot# Expiration Date ,092,556 Blood Capillary blood specimen / Unknown 11/05/2024 10:35 AM EDT Karen Guthrie MD POINT OF CARE TEST ENTER/EDIT ORDERABLES Final Result * (ABNORMAL) Glucose, Whole Blood (10/01/2024 9:19 AM EST) Glucose, Whole Blood 297(H) 60 - 115 mg/dL [facility] Comment:METER #: [id number] 5Testing performed in the Endocrinology Department [address], [address], [facility]. 10/01/2024 9:19 AM EST 10/01/2024 9:27 AM EST Generic External Data Provider LAB BLOOD ORDERAB LES Final Result Performing Organization Address City/State/[facility] Co de Phone Number [facility] [address] [place] [phone] * (ABNORMAL) Albumin, Random Urine W/Creatinine (09/22/2023 9:54 AM EST) Creatinine, Urine 228.61 mg/dL [facility] Microalbumin Urine 1,362.0 mg/L [facility] Microalbum Creatinine Ratio Ur 595.7(H) <30 ug/mg cr [facility] Comment:Albumin/Creatinine R atio Reference Ranges: Normal: < 30 ug/mg creatinine Microalbuminuria: 30 - 300 ug/mg creatinineClinical Albuminuria: > 300 ug/mg creatinine Urine (Urine, Random) 09/22/2023 9:54 AM EST 09/22/2023 11:03 AM EST Karen Guthrie MD LAB URINE ORDERABLES Final Res ult [facility] [address] [place] [address] [phone] * FIT DNA/Cologuard Cancer Screening (04/02/2023) Cologuard Cancer Screen Negative Stool Karen Guthrie MD HEALTH MAINTENANCE Final Resul t from Last 3 Months or Most Recently Relevant to Health Maintenance Insurance [facility] Care Teams Senior Ssis Developer Relationship Specialty Start Date End Date Karen Guthrie MD [address] [place] [address] PCP - General Family Medicine 07/15/22
--- OUTSIDE RECORDS SUMMARY | 2024-12-07 08:52 | XMS_ITS | Encounter Summary ---
Author Organization [employer] Address [address] [facility] 7t [place] [address] Care Team Providers Care Food Inspector Name Role Phone Karen Guthrie MD Primary Care Provider [phone] Reason for Referral * Imaging (STAT) - Closed Specialty Diagnoses / Procedures Referred By Contac t Referred To Contact Diagnoses LUQ pain Epigastric pain Procedures CT Abdomen Pelvis w/ Contrast Karen Guthrie MD [address] [place] [address] Phone: tel: fax: [facility] [address] [place] [address] Phone: tel: fax: Referral ID Status Reason Start Date Expiration Date Visits Re quested Visits Authorized [id number] Closed 01/02/2023 01/02/2024 1 1 Encounter Details Date Type Department Care Team (Late st Contact Info) Description 01/02/2023 Orders Only [facility] MEDICINE [address] [place], [place] [phone] Karen Guthrie MD [address] [place] [address] LUQ pain (Primary Dx); Epigastric [...] 01/21/2025 10:00 AM EDT Office Visit [facility] OPTOMETRY [address] [place], [place] [phone] RobertYocasta king, OD [address] [place] [address] Scheduled Orders Name Type Priority Associated Diagnoses Orde r Schedule CT Abdomen Pelvis w/ Contrast Imaging STAT LUQ pain Epigastric pain Expected: 01/02/2023, Expires: 01/03/2024 documented as of this encounter Visit Diagnoses Diagnosis LUQ pain- Primary Abdominal pain, left upper quadrant Epigastric pain Abdominal pain, epigastric documented in this encounter Care Teams Food Inspector Relationship Specialty Start Date End Date Karen Guthrie MD [address] [place] [address] PCP - General Family Medicine 07/15/22 documented as of this encounter
--- OUTSIDE RECORDS SUMMARY | 2024-12-07 08:52 | XMS_ITS | Data Portability ---
Author Organization [employer], [place] in - [facility] Address [address] [place] [phone] Care Team Providers Care Rougher Operator Name Role Phone [facility] Referring Provider YASEMIN LAMBERT Primary Care Provider Assessment Encounter Date Assessment Date Assessment LastModified by Organization Details LastModified Time 10/18/2022 10/18/2022 I provided real -time medical direction via phone for this encounter, and was available for additional phone based assistance as needed. I have reviewed and agree with the Assessment and Plan as documented by the Professor Of Business. Patient given the opportunity to ask questions. [email or web address] Not available 10/18/2022 23:13:30 12/11/2022 12/11/2022 I provided real -time medical direction via phone for this encounter, and was available for additional phone based assistance as needed. I have reviewed and agree with the Assessment and Plan as documented by the Professor Of Business. Patient given the opportunity to ask questions. Advised if develops CP/severe SOB/ increased abd pain/uncontrolle d n/v/d or black/bloody emesis or stool/ AMS/ syncope/ hi fever to call 911- verbalized understanding of instructions [email or web address] Not available 12/11/2022 16:54:21 05/06/2023 05/06/2023 I provided real -time medical direction via phone for this encounter, and was available for additional phone based assistance as needed. I have reviewed the Assessment and Plan as documented by the Professor Of Business. Patient given the opportunity to ask questions. [email or web address] Not available 05/07/2023 10:28:45 Plan of Treatment Reminders Order Date Submit Date Provider Last Modified By Organization Details Last Modified Time Details Appointments None recorded. Lab BMP, serum or plasma 2022 023 [email or web address] 0 [facility], [address] [place] [address], [id number] 3 10:28:26 rapid SARS CoV 2 Ag, QL IA, respiratory specimen 2022 023 [email or web address] 0 [facility], [address] [place] [address], [id number] 3 10:28:26 rapid flu (A+B) 2022 023 [email or web address] 0 [facility] - [facility], [address] [place] [address], [id number] 3 10:28:26 BMP, serum or plasma 2022 023 [email or web address] 0 [facility] - [facility], [address] [place] [address], [address] [place] [address] 3 17:09:27 urinalysis, dipstick 2022 023 [email or web address] 0 [facility] - [facility], [address] [place] [address], [id number] 3 23:34:46 BMP, serum or plasma 2022 023 [email or web address] 0 [facility] - [facility], [address] [place] [address], [id number] 3 23:34:46 Referral None recorded. Procedures None recorded. Surgeries None recorded. Imaging None recorded. Medication Orders sodium chloride 0.9 % intravenous solution 2022 023 [email or web address] 0 [facility], [address] [place] [address], [id number], 3 10:28:26 ondansetron HCl (PF) 4 mg/2 mL injection solution 2022 023 [email or web address] 0 [facility], [address] [place] [address], [id number], 3 10:28:26 ondansetron 4 mg disintegrat ing tablet 2022 023 [facility], [address] [place] [address], [id number], 3 17:01:14 sodium chloride 0.9 % intravenous solution 2022 023 [email or web address] 0 [facility], [address] [place] [address], [id number], 3 17:09:27 ondansetron HCl (PF) 4 mg/2 mL injection solution 2022 023 [email or web address] 0 [facility], [address] [place], [place], [id number], 3 17:09:27 sodium chloride 0.9 % intravenous solution 2022 023 [email or web address] 0 Not available 23:34:46 Patient TargetsNo targets recorded. Patient InstructionsNo instructions recorded. Reason for Referral None Reported. Results Created Date Observation Date Name Description Value Unit Range Abnormal Flag Note LastModifiedBy Organization Detail LastModifiedTime 10/18/1910/18/2022 urina lysis , dipst ick Leukocytes neg Not Available [facility] - [facility] [address] [place] [address], [id number] 10/18/2022 23:20:01 10/18/19 23 10/18/2022 urina lysis , dipst ick Nitrite negati ve Not Available Main - [facility] [address], [id number] 10/18/2022 23:20:01 10/18/19 23 10/18/2022 urina lysis , dipst ick Urobilinogen neg Not Available Main - [facility] [address] [place] [address], [id number] 10/18/2022 23:20:01 10/18/19 23 10/18/2022 urina lysis , dipst ick Protein neg Not Available Main - Ins [address], [id number] 10/18/2022 23:20:01 10/18/19 23 10/18/2022 urina lysis , dipst ick pH 6.5 Not Available Main - [facility] [address], [address] 10/18/2022 23:20:01 10/18/19 23 10/18/2022 urina lysis , dipst ick Blood neg Not Available Main - Ins [address], [address] [place] [address] 10/18/2022 23:20:01 10/18/19 23 10/18/2022 urina lysis , dipst ick Specific [place] 1;025 Not Available [facility] - [facility] [address] [place] [address], [address] [place] [address] 10/18/2022 23:20:01 10/18/19 23 10/18/2022 urina lysis , dipst ick Ketone trace Not Available Main - Ins michael [address] [place] [address], [address] [place] [address] 10/18/2022 23:20:01 10/18/19 23 10/18/2022 urina lysis , dipst ick Bilirubin trace Not Available Main - I [address], [address] [place] [address] 10/18/2022 23:20:01 10/18/19 23 10/18/2022 urina lysis , dipst ick Glucose negati ve Not Available Main - [facility] [address] [place] [address], [address] [place] [address] 10/18/2022 23:20:01 10/18/19 23 10/18/2022 urina lysis , dipst ick Appearance clear Not Available Main - [facility] [address] [place] [address], [address] [place] [address] 10/18/2022 23:20:01 10/18/19 23 10/18/2022 urina lysis , dipst ick Color yelllo w Not Available Main - [facility] [address] [place] [address], [address] [place] [address] 10/18/2022 23:20:01 10/18/19 23 10/18/2022 BMP, serum or plasm a BUN 8 Not Available Main - Ins [address], [address] [place] [address] 10/18/2022 23:20:03 10/18/19 23 10/18/2022 BMP, serum or plasm a Ca I az = 1.21 Not Available Main - [facility] [address] [place] [address], [address] [place] [address] 10/18/2022 23:20:03 10/18/19 23 10/18/2022 BMP, serum or plasm a CI- 102 Not Available Main - Ins [address], [address] [place] [address] 10/18/2022 23:20:03 10/18/19 23 10/18/2022 BMP, serum or plasm a CRE 0.5 Not Available Main - Ins [address], [address] [place] [address] 10/18/2022 23:20:03 10/18/19 23 10/18/2022 BMP, serum or plasm a GLU 100 Not Available Main - Ins [address], [address] [place] [address] 10/18/2022 23:20:03 10/18/19 23 10/18/2022 BMP, serum or plasm a K+ 4 Not Available Main - Ins [address], [address] [place] [address] 10/18/2022 23:20:03 10/18/19 23 10/18/2022 BMP, serum or plasm a Na+ 138 Not Available [facility] - Ins [address], [address] [place] [address] 10/18/2022 23:20:03 10/18/19 23 10/18/2022 BMP, serum or plasm a tCO2 25 Not Available Main - Ins [address], [address] [place] [address] 10/18/2022 23:20:03 12/12/19 23 12/11/2022 BMP, serum or plasm a BUN 11 Not Available [facility] - Ins [address], [address] [place] [address] 12/11/2022 17:06:59 12/12/19 23 12/11/2022 BMP, serum or plasm a Ca I az 1.26 Not Available [facility] - [address], [address] [place] [address] 12/11/2022 17:06:59 12/12/19 23 12/11/2022 BMP, serum or plasm a CI- 106 Not Available Main - [facility] [address], [address] [place] [address] 12/11/2022 17:06:59 12/12/19 23 12/11/2022 BMP, serum or plasm a CRE 0.6 Not Available [facility] - Ins [address], [address] [place] [address] 12/11/2022 17:06:59 12/12/19 23 12/11/2022 BMP, serum or plasm a GLU 146 Not Available Main - Ins [address], [phone] 12/11/2022 17:06:59 12/12/19 23 12/11/2022 BMP, serum or plasm a K+ 3.9 Not Available Main - [facility] [address], [address] [place] [address] 12/11/2022 17:06:59 12/12/19 23 12/11/2022 BMP, serum or plasm a Na+ 140 Not Available Main - Ins [address], [address] [place] [address] 12/11/2022 17:06:59 12/12/19 23 12/11/2022 BMP, serum or plasm a tCO2 19 Not Available Main - [facility] [address], [address] [place] [address] 12/11/2022 17:06:59 05/06/20 23 05/06/2023 rapid flu (A+B) Flu negati ve Not Available Main - [facility] [address] [place] [address], [address] [place] [address] 05/06/2023 12:56:53 05/06/2005/06/2023 rapid SARS CoV 2 Ag, QL IA, respi rator y speci men rapid SARS CoV 2 Ag, QL [place], respiratory specimen negati ve Not Available [facility] - [facility] [address] [place] [address], [address] [place] [address] 05/06/2023 12:56:51 05/07/2005/07/2023 BMP, serum or plasm a BUN 14 Not Available Main - Ins [address], [address] 05/06/2023 12:56:14 05/07/2005/07/2023 BMP, serum or plasm a Ca I AZ 5(nl) Not Available Main - [facility] [address] [place] [address], [address] 05/06/2023 12:56:14 05/07/2005/07/2023 BMP, serum or plasm a CI- 103 Not Available Main - Ins [address], [address] 05/06/2023 12:56:14 05/07/20 23 05/07/2023 BMP, serum or plasm a CRE 0.54 Not Available Main - Ins [address], [address] 05/06/2023 12:56:14 05/07/20 23 05/07/2023 BMP, serum or plasm a GLU 163 Not Available Main - [facility] [address], [address] 05/06/2023 12:56:14 05/07/20 23 05/07/2023 BMP, serum or plasm a K+ 4.5 Not Available Main - Ins [address], [address] 05/06/2023 12:56:14 05/07/2005/07/2023 BMP, serum or plasm a Na+ 139 Not Available Main - [facility] [address], [address] [place] [address] 05/06/2023 12:56:14 05/07/2005/07/2023 BMP, serum or plasm a tCO2 23 Not Available Main - [facility] [address], [address] 05/06/2023 12:56:14 Result Notes None recorded. Medical Equipment None Reported. Allergies Allergen ID Allergen Name Allergen Category Reaction Reaction Severity Criticality Documentation Date Start Date Code Code System Note Provider Name and Address Organization Details Recorded Time 1957 Product containin g angiotens in-conver ting enzyme inhibitor (product) medicatio n cough Not available Not available 10/18/2022 40741 009 SNOMED Ale Mendoza MD [address] [place] [address],[address], [place], [address], [facility] 3 22:57:07 1958 Bactrim medicatio n Not available Not available Not available 10/18/2022 77167 9 RxNorm Ale Mendoza MD [address] [place] [address],[address], [place], [address], [facility] 3 22:57:21 1959 Product containin g penicilli n (product) medicatio n Not available Not available Not available 10/18/2022 73403 8001 SNOMED Not Available [facility] - production [...] Available No t Available [employer] Khalif 2 Welch USE TO TEST BLOOD SUGAR THREE TIMES DAILY AND NEEDED active Not Available Not Available No t Available Vitals Date Recorded Body weight Respiratory rate Heart rate Body height Body temperature Oxygen saturation Oxygen saturation in Arterial blood by Pulse oximetry Systolic blood pressure Diastolic blood pressure Provider Name and Address Organization Details Last Updated DateTime 3 49368.6 4 g 16 /min 94 /min 162.56 [...] mm[Hg] 148 mm[Hg] 82 mm[Hg] Not Available Recorded [employer] - production 3 12:02:20 Date Recorded Body weight Provider Name an d Address Organization Details Last Updated DateTime 10/18/2022 71376.22 g Kristy Acosta [address] [place] [address],[address], [place], [address], [place] - [facility] 10/18/2022 23:07:43 Date Recorded Respiratory rate Body [...] 3 18 /min 98.6 [degF] 100 /min 69514.8 g 98 % 98 % 157.48 cm 98.6 [degF] 09356.8 g 100 /min 18 /min 157.48 cm 98 % 98 % 135 mm[Hg] 87 mm[Hg] 135 mm[Hg] 87 mm[Hg] Not Available [employer] 3 13:15:40 Social History None recorded. Functional [...] 7998 Ale [facility]endoza MD [facility] [address] [place] [phone] 10/18/2022 11:17:31 10/21/2022 09:40:55 Gastroenteritis 23096422 K52.9 w/ GERD- advised BRAT/ bland diet- [...] 9573 Ale Mendoza MD Main - [facility] [address] [place] [address] 12/11/2022 11:50:55 12/13/2022 09:41:45 Abdominal pain 56664215 R10.9 w/ n/v/d- advised to hold the [...] lo threshold for going to the ED [id number] Ale Mendoza MD Main - [facility] [address] [place] [phone] 05/06/2023 12:51:33 05/07/2023 11:54:31 Abdominal pain 57129501 R10.9 w/ n/v/d- significan t abd distention and very elevated lactate- although remainder labs nl/ vss - concern for SBO/ risk for perforatio n/ intra-abdo bhanu infection/ early sepsis- advised needs imaging and further emergent eval / treatment in the ED- patient agreeable- report called to [place] ER. S medic arrived for EMS so [facility] medic rode in to continue IVF en route to the ER. Health Concerns Section Related Observation LastModified by Organization Detai ls LastModified Time None Recorded Concern Status LastModified by Organization Details LastModified Time None Recorded Advance Directives Directive None Recorded Payers Encounter Date Sequence Insurance Name Policy Number Policy Javier Covered Member ID Javier Member ID Guarantor Name 10/18/2022 1 [facility] - DOS PRIOR TO 2022 - DUAL ELIGIBLE (MEDICARE REPLACEMENT/ADV ANTAGE - HMO) Jacki Baker [id number] Jacki Baker 12/11/2022 1 [facility] - DOS PRIOR TO 2022 - DUAL ELIGIBLE (MEDICARE REPLACEMENT/ADV ANTAGE - HMO) Jacki Cottrellendez [id number] Jacki Lambertez 05/06/2023 1 [facility] - DOS ON OR AFTER 2022 - DUAL ELIGIBLE - FDC OPTIONS AND ONE CARE (MEDICARE REPLACEMENT/ADV ANTAGE - HMO) Jacki Lambertez [id number] Jacki Lambertez Notes Date Note Type Note [...] ..................... ..................... ..................... ..................... ..................... ..................... ............... Professor Of Business Note From Elias [place]: PT c/o n/v/d [...] and given 15mg Toradol ordered and given Professor Of Business Allergies: Aspirin, Omeprazole, Penicillin ..................... ..................... ..................... [...] spells. Ale Mendoza MD [address] [facility],[address], [place], [address], [place] [employer] 10/18/2022 23:36:31 12/11/2022 text/html HPI: Call to [...] ..................... ..................... ..................... ..................... ..................... ..................... ............... Professor Of Business Note From Steve Lozoya: Pt answers door, [...] zofran 4mg IV ? 2 BMP to [facility] via portal. Pt advised by [facility] to stop taking antibiotics until she can talk to her PCP, eat only BRAT diet (explained) and drink clear liquids. Red flags and pt education discussed. Professor Of Business Allergies: Aspirin, Omeprazole, Penicillin, Trimethoprim-Sulfamet hoxazole ..................... [...] solids today. She denies UTi s/s Ale Mednoza MD [address] [facility],[address], [place], [address], [facility] 12/11/2022 17:10:18 05/06/2023 text/html HPI: Vomiting and wants to make sure she is not dehydrated>has been experiencing symptoms for about 3 days. ..................... ..................... ..................... ..................... ..................... ..................... ............... CRC Nursing Assessment: Comments: Requestor unable to give additional details. ..................... ..................... ..................... ..................... ..................... ..................... ............... Professor Of Business Note From Silvano Garcia: Pt reports n/v/d for three days. Pt denies CP, SOB, fevers, chills, hematochezia, hematemesis. Pt is alert, NAD. VSS. Afebrile. Neuro exam and gait normal. Lungs CTA. ABD is distended and tender in epigastric region. + BS x4. No LLE. Rapid covid and flu negative. POC BMP lactate 36.2. [facility] contacted and advised pt be seen in ED. 911 initiated. Normal saline 500 mg IV and Ondansetron 4 mg IVP administered en route to [place] ED. [facility] golf course designer maintained all pt care until transfer of care to [place] RN. [facility] Lab Orders: BMP, serum or plasma: Performed rapid SARS CoV 2 Ag, QL IA, respiratory specimen: Performed rapid flu (A+B): Performed ..................... ..................... ..................... ..................... ..................... ..................... ............... Disposition: Fulfilled Ale Mendoza MD [address] [place] [address],[address], [place], [address], MARII DELUCA 05/07/2023 10:32:09 OBGyn Episode No OBEpisode recorded.
--- OUTSIDE RECORDS SUMMARY | 2024-12-07 08:52 | XMS_ITS | Encounter Summary ---
Author Organization [employer] Address [address] [place] [address] Care Team Providers Care Electronic Equipment Repairmen Name Role Phone Karen Guthrie MD Primary Care Provider [phone] Encounter Details Date Type Department Care Team (Late Contact Info) Description 12/16/2022 Orders Only [facility] MEDICINE [address] [place] [address] Karen Guthrie MD [address] [place] [address] Epigastric pain (Primary Dx) Social History Tobacco [...] Upcoming Encounters Date Type Department Care Team ([facility] Contact Info) Description 01/21/2025 10:00 AM EDT Office Visit [facility] OPTOMETRY [address] [place], [place] [phone] Yocasta Jones, OD [address] [place] [address] documented as of this encounter Procedures Procedure Name Priority Date/Time Associated Diagnosis Comments GLUCOSE, WHOLE BLOOD Routine 01/01/2023 10:57 AM EDT Epigastric pain GLUCOSE, WHOLE BLOOD Routine 01/01/2023 10:32 AM EDT Epigastric pain documented in this encounter Results * Glucose, Whole Blood (01/01/2023 10:57 AM EDT) Glucose, Whole Blood 95 60 - 115 mg/dL [facility] Comment:METER #: [id number] Testing performed in the Endocrinology Department [address] , [address], [facility]. 01/01/2023 10:5 7 AM EDT 01/01/2023 11:05 AM EDT [facility] External Provider LAB BLO OD ORDERABLES Final Result Performing Organization Address City/[facility]/ZIP Co de Phone Number [facility] [address] [place] [phone] * Glucose, Whole Blood (01/01/2023 10:32 AM EDT) Glucose, Whole Blood 60 60 - 115 mg/dL [facility] Comment:METER #: [id number] 5Testing performed in the Endocrinology Department [address] , [address], [facility]. 01/01/2023 10:3 2 AM EDT 01/01/2023 10:38 AM EDT [facility] External Provider LAB BLO OD ORDERABLES Final Result Performing Organization Address [facility]/ZIP Co de Phone Number [facility] [address] [place] [phone] documented in this encounter Visit Diagnoses Diagnosis Epigastric pain- Primary Abdominal pain, epigastric documented in this encounter Care Teams Electronic Equipment Repairmen Relationship Specialty Start Date End Date Karen Guthrie MD [address] [place] [phone] PCP - General Family Medicine 07/15/22 documented as of this encounter
--- OUTSIDE RECORDS SUMMARY | 2024-12-07 08:52 | XMS_ITS | Encounter Summary ---
Author Organization [employer] Address [address] [place] [address] Care Team Providers Care Director Visual Name Role Phone Karen Guthrie MD Primary Care Provider [phone] Reason for Visit * Reason Comments Med Refill Encounter Details Date Type Department Care Team ([facility] Contact Info) Description 12/07/2024 Refill [facility] MEDICINE [address] [place], [place] [phone] Karen Guthrie MD [address] [place], [place] [phone] Social History Tobacco Use Types Packs/Day Years [...] Description 01/21/2025 10:00 AM EDT Office Visit [facility] OPTOMETRY [address] [place] [address] Yocasta Jones, OD [address] [place] [address] documented as of this encounter Visit Diagnoses Not on filedocumented in this encounter Additional Health Concerns Assessment Noted Time PHQ-9 Depression Total Score: 21 025 10:33 AM EDT documented as of this encounter Care Teams Director Visual Relationship Specialty Start Date End Date Karen Guthrie MD [address] [place] [address] PCP - General Family Medicine 07/15/22 documented as of this encounter
== END 2024-12-07 09:49 | disposition home or self-care (01) ==
PROVIDERS: PCP Internal Medicine; Referring Provider Internal Medicine; Visit Provider Nurse Practitioner Family
DX: K76.0 Fatty (change of) liver, not elsewhere classified (principal); R10.9 Unspecified abdominal pain; K21.9 Gastro-esophageal reflux disease without esophagitis; K59.09 Other constipation; R14.0 Abdominal distension (gaseous); D12.6 Benign neoplasm of colon, unspecified
CPT/HCPCS: 99214

== ENCOUNTER 2024-12-07 08:33 | Outpatient (REF) | payer OTHER, SELFPAY ==
[2024-12-07 11:20] LABS: Alanine Aminotransferase 39 U/L (0-31); Albumin Level 4.5 g/dL (3.5-5.0); Alkaline Phosphatase 87 U/L (39-117); Aspartate Amino Transferase 38 U/L (5-31); Bilirubin Direct < 0.1 mg/dL (0.0-0.5); Bilirubin Total 0.3 mg/dL (0.0-1.0); Total Protein 7.6 g/dL (6.5-8.0)
--- OUTSIDE RECORDS SUMMARY | 2024-12-07 11:47 | XMS_ITS | Encounter Summary ---
Author Organization [employer] [facility] Address [address] [place] [address] Care Team Providers Care Beet Topper Name Role Phone Karen Guthrie MD Primary Care Provider [phone] Encounter Details Date Type Department Care Team (Late Contact Info) Description 01/10/2023 Orders Only [facility] MEDICINE [address] [place] [address] Karen Guthrie MD [address] [place] [address] Vomiting, unspecified vomiting type, unspecified whether nausea [...] Description 01/21/2025 10:00 AM EDT Office Visit [facility] OPTOMETRY [address] [place] [address] Robert, Yocasta, OD [address] [place] [address] Scheduled Orders Name Type Priority Associated Diagnoses Orde r Schedule Basic Metabolic Panel Lab Routine Vomiting, unspecified vomiting type, unspecified whether nausea present Expected: 01/10/2023 (Approximate), Expires: 01/11/2024 documented as of this encounter Visit Diagnoses Diagnosis Vomiting, unspecified vomiting type, unspecified whether nausea present- Primary documented in this encounter Care Teams Beet Topper Relationship Specialty Start Date End Date Karen Guthrie MD [address] [place] [phone] PCP - General Family Medicine 07/15/22 documented as of this encounter
--- OUTSIDE RECORDS SUMMARY | 2024-12-07 11:47 | XMS_ITS | Encounter Summary ---
Author Organization [employer] Address [address] [place] [address] Care Team Providers Care Boom Conveyor Operator Name Role Phone Karen Guthrie MD Primary Care Provider [phone] Reason for Visit * Reason Comments Med Refill Encounter Details Date Type Department Care Team ([facility] Contact Info) Description 10/01/2023 Refill [facility] [address] [place], [place] [phone] Karen Guthrie MD [address] [place], [place] [phone] Type 2 diabetes mellitus with other specified complication, unspecified whether rat exterminator insulin use ([facility]) Social History Tobacco Use Types Packs/Day [...] 01/21/2025 10:00 AM EDT Office Visit [facility] OPTOMETRY [address] [place], [place] [phone] Yocasta Jones, OD [address] [place] [address] documented as of this encounter Visit Diagnoses Diagnosis Type 2 diabetes mellitus with other specified complication, unspecified whether care home insulin use ([facility]) documented in this encounter Care Teams Boom Conveyor Operator Relationship Specialty Start Date End Date Karen Guthrie MD [address] [place] [address] PCP - General Family Medicine 07/15/22 documented as of this encounter
--- OUTSIDE RECORDS SUMMARY | 2024-12-07 11:47 | XMS_ITS | Encounter Summary ---
Author Organization [employer] Address [address] [place] [address] Care Team Providers Care Latexer Name Role Phone Karen Guthrie MD Primary Care Provider [phone] Encounter Details Date Type Department Care Team ([facility] st Contact Info) Description 12/07/2024 Orders Only GENERIC EXTERNAL DATA DEPARTMENT Provider, [...] 10:00 AM EDT Office Visit [facility] OPTOMETRY [address] [place], [place] [phone] Robert, Yocasta, OD [address] [place] [address] documented as of this encounter Procedures Procedure Name Priority Date/Time Associated Diagnosis Comments HEPATIC FUNCTION PANEL Routine 12/07/2024 10:35 AM EDT documented in this encounter Results * (ABNORMAL) Hepatic Function Panel (12/07/2024 10:35 AM EDT) Bilirubin, Total 0.3 0.0 - 1.0 mg/dL [facility] Bilirubin, Direct <0.1 0.0 - 0.5 mg/dL [facility] Aspartate Amino Transferase 38(H) 5 - 31 U/L [facility] Alanine Aminotransferase 39(H) 0 - 31 U/L [facility] Total Protein 7.6 6.5 - 8.0 g/dL [facility] Albumin Level 4.5 3.5 - 5.0 g/dL [facility] Alkaline Phosphatase 87 39 - 117 U/L [facility] 12/07/2024 10:3 5 AM EDT 12/07/2024 10:35 AM EDT us Generic External Data Provider LAB BLOOD ORDERAB LES Final Result [facility] [address] [place] [phone] documented in this encounter Visit Diagnoses Not on filedocumented in this encounter Additional Health Concerns Assessment Noted Time PHQ-9 Depression Total Score: 21 11/05/ 025 10:33 AM EDT documented as of this encounter Care Teams Latexer Relationship Specialty Start Date End Date Karen Guthrie MD [address] [place] [address] PCP - General Family Medicine 07/15/22 documented as of this encounter
--- OUTSIDE RECORDS SUMMARY | 2024-12-07 11:47 | XMS_ITS | Encounter Summary ---
Author Organization [employer] [facility] Address [address] [facility] [address]t [place] [address] Care Team Providers Care Protective Signal Operations Supervisor Name Role Phone Karen Guthrie MD Primary Care Provider [phone] Encounter Details Date Type Department Care Team (Late Contact Info) Description 01/31/2023 Orders Only [facility] MEDICINE [address] [place] [address] Karen Guthrie MD [address] [place] [address] Constipation, unspecified constipation type (Primary Dx) Social [...] 10:00 AM EDT Office Visit [facility] OPTOMETRY [address] [place] [address] Robert, Yocasta, OD [address] [place] [address] documented as of this encounter Visit Diagnoses Diagnosis Constipation, unspecified constipation type- Primary documented in this encounter Care Teams Protective Signal Operations Supervisor Relationship Specialty Start Date End Date Karen Guthrie MD [address] [place] [address] PCP - General Family Medicine 07/15/22 documented as of this encounter
--- OUTSIDE RECORDS SUMMARY | 2024-12-07 11:47 | XMS_ITS | Encounter Summary ---
Author Organization [employer] Address [address] [place] [address] Care Team Providers Care Frame Opener Name Role Phone Karen Guthrie MD Primary Care Provider [phone] Encounter Details Date Type Department Care Team (Late Contact Info) Description 12/16/2022 Orders Only [facility] MEDICINE [address] [place] [address] Karen Guthrie MD [address] [place] [address] Epigastric pain (Primary Dx) Social History Tobacco [...] Upcoming Encounters Date Type Department Care Team ([facility] Contact Info) Description 01/21/2025 10:00 AM EDT Office Visit [facility] OPTOMETRY [address] [place], [place] [phone] Yocasta Jones, OD [address] [place] [address] documented as of this encounter Procedures Procedure Name Priority Date/Time Associated Diagnosis Comments GLUCOSE, WHOLE BLOOD Routine 01/01/2023 10:57 AM EDT Epigastric pain GLUCOSE, WHOLE BLOOD Routine 01/01/2023 10:32 AM EDT Epigastric pain documented in this encounter Results * Glucose, Whole Blood (01/01/2023 10:57 AM EDT) Glucose, Whole Blood 95 60 - 115 mg/dL [facility] Comment:METER #: [id number] Testing performed in the Endocrinology Department [address] , [address], [facility]. 01/01/2023 10:5 7 AM EDT 01/01/2023 11:05 AM EDT [facility] External Provider LAB BLO OD ORDERABLES Final Result Performing Organization Address City/[facility]/ZIP Co de Phone Number [facility] [address] [place] [phone] * Glucose, Whole Blood (01/01/2023 10:32 AM EDT) Glucose, Whole Blood 60 60 - 115 mg/dL [facility] Comment:METER #: [id number] 5Testing performed in the Endocrinology Department [address] , [address], [facility]. 01/01/2023 10:3 2 AM EDT 01/01/2023 10:38 AM EDT [facility] External Provider LAB BLO OD ORDERABLES Final Result Performing Organization Address [facility]/ZIP Co de Phone Number [facility] [address] [place] [phone] documented in this encounter Visit Diagnoses Diagnosis Epigastric pain- Primary Abdominal pain, epigastric documented in this encounter Care Teams Frame Opener Relationship Specialty Start Date End Date Karen Guthrie MD [address] [place] [address] PCP - General Family Medicine 07/15/22 documented as of this encounter
--- OUTSIDE RECORDS SUMMARY | 2024-12-07 11:47 | XMS_ITS | Encounter Summary ---
Author Organization [employer] [facility] Address [address] [place] [address] Care Team Providers Care Evp And Chief Operating Officer Name Role Phone Karen Guthrie MD Primary Care Provider [phone] Encounter Details Date Type Department Care Team ([facility] [address] Contact Info) Description 04/18/2023 Orders Only [facility] MEDICINE [address] [place] [address] Karen Guthrie MD [address] [place] [address] Social History Tobacco Use Types Packs/Day Years [...] Description 01/21/2025 10:00 AM EDT Office Visit [facility] OPTOMETRY [address] [place], [place] [phone] Robert, Yocasta, OD [address] [place] [address] documented as of this encounter Visit Diagnoses Not on filedocumented in this encounter Care Teams Evp And Chief Operating Officer Relationship Specialty Start Date End Date Karen Guthrie MD [address] [place] [address] PCP - General Family Medicine 07/15/22 documented as of this encounter
--- OUTSIDE RECORDS SUMMARY | 2024-12-07 11:47 | XMS_ITS | Encounter Summary ---
Author Organization [employer] Address [address] [place] [address] Care Team Providers Care Ironmolder Name Role Phone Karen Guthrie MD Primary Care Provider [phone] Reason for Visit * Reason Onset Date Comments Med Refill 04/22/2024 Encounter Details Date Type Department Care Team ([facility] st Contact Info) Description 04/22/2024 Telephone [facility] MEDICINE [address] [place], [place] [phone] Karen Guthrie MD [address] [place] [address] Med Refill Social History Tobacco Use Types [...] 9:39 AM EDT Medication was sent to [facility] on 03/10/24 with 3 refills. * Telephone Encounter - Harry Deal - 04/22/2024 9:27 AM EDT TC from pt requesting medication refill. Medications needing refill : Continuous Glucose Sensor (FreeStyle Khalif 2 Sensor) misc To be sent to: [facility] documented in this encounter Plan of Treatment Upcoming Encounters Date Type Department Care Team (Late st Contact Info) Description 01/21/2025 10:00 AM EDT Office Visit [facility] OPTOMETRY [address] [place] [address] Yocasta Jones, OD [address] [place] [address] documented as of this encounter Visit Diagnoses Not on filedocumented in this encounter Additional Health Concerns Assessment Noted Time PHQ-9 Depression Total Score: 14 024 1:04 PM EDT documented as of this encounter Care Teams Ironmolder Relationship Specialty Start Date End Date Karen Guthrie MD [address] [place] [address] PCP - General Family Medicine 07/15/22 documented as of this encounter
--- OUTSIDE RECORDS SUMMARY | 2024-12-07 11:47 | XMS_ITS | Encounter Summary ---
Author Organization [employer] [facility] Address [address] [facility] 7t [place] [address] Care Team Providers Care Acquisition Consultant Name Role Phone Quang Vasques MD Primary Care Provider Karen Kang MD Primary Care Provider Encounter Details Date Type Department Care Team (Latest Contact Info) Description 09/04/2018 Abstract [facility] CONVERSIONS Dental, Provider, DDS Social History Tobacco [...] Description 01/21/2025 10:00 AM EDT Office Visit [facility] OPTOMETRY [address] [place] [address] Yocasta Jones, OD [address] [place] [address] documented as of this encounter Visit Diagnoses Not on filedocumented in this encounter Care Teams Acquisition Consultant Relationship Specialty Start Date End Date Quang Vasques MD PCP - General Family Medicine 02/15/20 07/14/22 Karen Guthrie MD [address] [place] [address] PCP - General Family Medicine 07/15/22 documented as of this encounter
--- OUTSIDE RECORDS SUMMARY | 2024-12-07 11:47 | XMS_ITS | Encounter Summary ---
Author Organization [employer] Address [address] [place] [address] Care Team Providers Care Medical Translator Name Role Phone Karen Guthrie MD Primary Care Provider [phone] Reason for Visit * Reason Comments Med Refill Encounter Details Date Type Department Care Team ([facility] Contact Info) Description 12/07/2024 Refill [facility] MEDICINE [address] [place], [place] [phone] Karen Guthrie MD [address] [place], [place] [phone] Social History Tobacco Use Types Packs/Day Years [...] 10:00 AM EDT Office Visit [facility] OPTOMETRY [address] [place] [address] Yocasta Jones, OD [address] [place] [address] documented as of this encounter Visit Diagnoses Not on filedocumented in this encounter Additional Health Concerns Assessment Noted Time PHQ-9 Depression Total Score: 21 025 10:33 AM EDT documented as of this encounter Care Teams Medical Translator Relationship Specialty Start Date End Date Karen Guthrie MD [address] [place] [address] PCP - General Family Medicine 07/15/22 documented as of this encounter
--- OUTSIDE RECORDS SUMMARY | 2024-12-07 11:47 | XMS_ITS | Encounter Summary ---
Author Organization [employer] Address [address] [facility] 7t [place] [address] Care Team Providers Care Director Video Name Role Phone Karen Guthrie MD Primary Care Provider [phone] Reason for Referral * Imaging (STAT) - Closed Specialty Diagnoses / Procedures Referred By Contac t Referred To Contact Diagnoses LUQ pain Epigastric pain Procedures CT Abdomen Pelvis w/ Contrast Karen Guthrie MD [address] [place] [address] Phone: tel: fax: [facility] [address] [place] [address] Phone: tel: fax: Referral ID Status Reason Start Date Expiration Date Visits Re quested Visits Authorized [id number] Closed 01/02/2023 01/02/2024 1 1 Encounter Details Date Type Department Care Team (Late st Contact Info) Description 01/02/2023 Orders Only [facility] MEDICINE [address] [place], [place] [phone] Karen Guthrie MD [address] [place] [address] LUQ pain (Primary Dx); Epigastric [...] Description 01/21/2025 10:00 AM EDT Office Visit [facility] OPTOMETRY [address] [place], [place] [phone] RobertYocasta king, OD [address] [place] [address] Scheduled Orders Name Type Priority Associated Diagnoses Orde r Schedule CT Abdomen Pelvis w/ Contrast Imaging STAT LUQ pain Epigastric pain Expected: 01/02/2023, Expires: 01/03/2024 documented as of this encounter Visit Diagnoses Diagnosis LUQ pain- Primary Abdominal pain, left upper quadrant Epigastric pain Abdominal pain, epigastric documented in this encounter Care Teams Director Video Relationship Specialty Start Date End Date Karen Guthrie MD [address] [place] [address] PCP - General Family Medicine 07/15/22 documented as of this encounter
--- OUTSIDE RECORDS SUMMARY | 2024-12-07 11:47 | XMS_ITS | Encounter Summary ---
Author Organization [employer] Address [address] [place] [address] Care Team Providers Care Administrative Asst Name Role Phone Karen Guthrie MD Primary Care Provider [phone] Encounter Details Date Type Department Care Team ([facility] st Contact Info) Description 09/23/2024 Orders Only [facility] MEDICINE [address] [place], [place] [phone] Karen Guthrie MD [address] [place], [place] [phone] Social History Tobacco Use Types Packs/Day Years [...] Office Visit [facility] OPTOMETRY [address] [place] [address] Robert, Yocasta, OD [address] [place] [address] documented as of this encounter Visit Diagnoses Not on filedocumented in this encounter Additional Health Concerns Assessment Noted Time PHQ-9 Depression Total Score: 14 024 1:04 PM EDT documented as of this encounter Care Teams Administrative Asst Relationship Specialty Start Date End Date Karen Guthrie MD [address] [place], [place] [phone] PCP - General Family Medicine 07/15/22 documented as of this encounter
--- OUTSIDE RECORDS SUMMARY | 2024-12-07 11:47 | XMS_ITS | Clinical Summary ---
Author Organization [employer] Address [address] [facility] 7t [place] [address] Care Team Providers Care Case Checker Name Role Phone Karen Guthrie MD Primary Care Provider [phone] Allergies Active Allergy Reactions Criticality Noted Date [...] at bedtime. 023 Active Continuous Blood Gluc Policy Intern (ZummZummStyle Khalif 2 [place]) device USE TO TEST BLOOD SUGAR THREE TIMES DAILY AND NEEDED 1 each 023 Active benztropine (Cogentin) 0.5 MG tablet Take 0.5 mg by mouth at bedtime. 023 Active NovoLOG FLEXPEN 100 UNIT/ML penIndications:T ype 2 diabetes mellitus with other specified complication, with long-term current use of insulin ([facility]) INJECT 12 UNITS SUBCUTANEOUSLY WITH BREAKFAST, [...] Continuous Glucose Sensor (FreeStyle Khalif 2 Sensor) [facility] TEST BLOOD SUGAR THREE TIMES [...] with other specified complication, unspecified whether terminal gauger supervisor insulin use ([facility]) TEST BLOOD SUGAR 4 TO 6 TIMES PER DAY 100 strip Active insulin pen needle (BD Pen Needle Inocencia U/F) 32G x 4 mm miscIndications: Type 2 diabetes mellitus with other specified complication, unspecified whether shelter insulin use ([facility]) USE DIRECTED TO INJECT DAILY 100 [...] mellitus with other specified complication, unspecified whether shelter insulin use ([facility]) TEST BLOOD SUGAR 4 TO 6 TIMES PER DAY 100 strip 5 024 2024 Discontinued(R eorder (will not trigger notification to Pharmacy)) insulin pen needle (Pentips) 32G x 4 mm miscIndications: Type 2 diabetes mellitus with other specified complication, unspecified whether terminal gauger supervisor insulin use ([facility]) USE DIRECTED TO INJECT DAILY 100 [...] to repeat Cscope in [address] [facility] Did not get scheduled, overdue In the [...] Date Type Department Care Team Description 12/07/2024 Orders Only GENERIC EXTERNAL DATA DEPARTMENT Provider, Generic External Data 12/07/2024 Refill [facility] [address] [place] [address] Karen Guthrie MD 12/02/[address] [address] Karen Guthrie MD Results 12/01/[address] [address] Fabiola Ortiz, ROSITA Results 12/01/2024 Orders Only [facility] [address] [place] [address] Farhat Phillip CNM Bloody discharge from right nipple (Primary Dx); Pre-procedure lab exam 11/30/2024 Refill [facility] [address] [place] [address] Karen Guthrie MD Type 2 diabetes mellitus with other specified complication, unspecified whether shelter insulin use (CMS/[facility]) 11/11/2024 Refill [facility] [address] [place], [place] [phone] Karen Guthrie MD Type 2 diabetes mellitus with other specified complication, unspecified whether terminal gauger supervisor insulin use (CMS/HCC) 11/05/2024 11:00 AM EDT Office Visit [facility] [address] [place] [phone] Karen Guthrie MD Essential hypertension (Primary Dx); Type 2 diabetes mellitus with hyperglycemia, with long-term current use of insulin (CMS/[facility]); Dietary counseling; Exercise counseling; Overweight; Recurrent major depressive episodes, moderate (CMS/HCC); Hyperlipidemia associated with type 2 diabetes mellitus (CMS/HCC) ([facility]/HCC) 11/05/2024 Travel 10/29/2024 Patient Outreach [address] [address] Karen Guthrie MD Pre-visit Planning (SDOH screening negative and tobacco screening negative) 10/20/2024 Refill [facility] [address] [place] [phone] Karen Guthrie MD 10/19/2024 Orders Only [address] [address] Farhat Phillip CNM Bloody discharge from right nipple (Primary Dx) 10/18/2024 2:00 PM EST Office Visit [address] [address] Farhat Phillip CNM Bloody discharge from right nipple (Primary Dx) 10/18/2024 Travel 10/14/[address] [address] Karen Guthrie MD Nurse Triage 10/01/2024 Orders Only GENERIC EXTERNAL DATA DEPARTMENT Provider, Generic External Data 09/23/2024 Orders Only [address] [address] Karen Guthrie MD 09/22/2024 Refill [facility] [address] [place], [place] [phone] Karen Guthrie MD 09/10/[address] [address] Morena Sandoval [place] recall from Last 3 [...] Description 01/21/2025 10:00 AM EDT Office Visit [facility] [address] [place] [address] Robert, Yocasta, OD [address] [place] [address] Health Maintenance Due Date Last Done Comments [...] Associated Diagnosis Comments HEPATIC FUNCTION PANEL Routine 10:35 AM EDT CREATININE, SERUM Routine 12/02/2024 9:3 1 AM [...] hyperglycemia, with long-term current use of insulin ([facility]/HCC) LIPID PANEL, STANDARD Routine 11/05/2024 10:58 AM EDT Type 2 diabetes mellitus with hyperglycemia, with long-term current use of insulin ([facility]/HCC) POCT GLYCATED HEMOGLOBIN, TOTAL Routine 11/05/2024 10:35 AM EDT Type 2 diabetes mellitus with hyperglycemia, with long-term current use of insulin ([facility]/HCC) POCT GLUCOSE Routine 11/05/2024 10:35 AM EDT Type 2 diabetes mellitus with hyperglycemia, with long-term current use of insulin ([facility]) GLUCOSE, WHOLE BLOOD Routine 10/01/2024 9:19 AM EST ALBUMIN, RANDOM URINE W/CREATININE Routine 09/22/2023 9:54 AM EST Type 2 diabetes mellitus with other specified complication, unspecified whether shelter insulin use ([facility]) FIT DNA/COLOGUARD CANCER SCREENING Routine 04/02/2023 from Last 3 Months or Most Recently Relevant to Health Maintenance Results * (ABNORMAL) Hepatic Function Panel (12/07/2024 10:35 AM EDT) Bilirubin, Total 0.3 0.0 - 1.0 mg/dL [facility] Bilirubin, Direct <0.1 0.0 - 0.5 mg/dL [facility] Aspartate Amino Transferase 38(H) 5 - 31 U/L [facility] Alanine Aminotransferase 39(H) 0 - 31 U/L [facility] Total Protein 7.6 6.5 - 8.0 g/dL [facility] Albumin Level 4.5 3.5 - 5.0 g/dL [facility] Alkaline Phosphatase 87 39 - 117 U/L [facility] 12/07/2024 10:3 5 AM EDT 12/07/2024 10:35 AM EDT us Generic External Data Provider LAB BLOOD ORDERAB LES Final Result Performing Organization Address [facility] Co de Phone Number [facility] [address] [place] [phone] * Creatinine, Serum (12/02/2024 9:31 AM EDT) Creatinine, Serum 0.91 0.5 - 1.4 mg/dL [facility] Estimated Glomerular Filt Rate >60 [facility] Comment:Chronic Kidney Disea se: Estimated GFR < 60 mL/min/1.31p3Pfrcks Kidney Disease: Estimated GFR < 15 mL/min/1.73m2 Blood Venous blood specimen / Unknown 12/02/2024 9:31 AM EDT 12/02/2024 11:34 AM EDT us Farhat Phillip [facility] LAB BLOOD ORDERABLES Brit l Result Performing Organization Address [facility] Co de Phone Number [facility] [address] [place] [phone] * BUN (Blood Urea Nitrogen) (12/02/2024 9:31 AM EDT) Urea Nitrogen (BUN) 13 9 - 16 mg/dL [facility] Blood Venous blood specimen / Unknown 12/02/2024 9:31 AM EDT 12/02/2024 11:34 AM EDT Farhat Phillip [facility] LAB BLOOD ORDERABLES Brit l Result Performing Organization Address [facility] Co de Phone Number [facility] [address] [place] [phone] * BI US Breast Limited Right (12/01/2024 12:20 PM EDT) Anatomical Region Laterality Modality Breast Right Ultrasound 12/01/2024 12:2 0 PM EDT Narrative 12/01/2024 1:00 PM EDT ? [facility] ? [address] ?[place], [place] [address] ? Ultrasound Report ? Signed ? Patient: Baker,Jacki I ?MR#: [id number] ?? [id number] ? : 1955 ?Acct:[id number] ? Age/Sex: 69 / F ?ADM Date: 12/01/24 ? Loc: HO.MAMMO ? Attending Dr: Farhat Phillip CNM ? Ordering Physician: FARHAT PIHLLIP CNM ?? Date of Service: 12/01/24 ?? Procedure(s): US breast RT limited mamm only ?? Accession Number(s): [id number] ? cc: Karen Guthrie; FARHAT PHILLIP CNM [...] DD/ 1220 ? TD/TT: 12/01/24 1235 ? Moving Picture Operator: ? Procedure Note Donotuseinterpreter, Image - [facility]01[facility] [address] [place] [address] Ultrasound Report Signed Patient: Jacki Baker IMR#: [id number] : 7Acct:[id number] Age/Sex: 69 / FADM Date: 12/01/24 Loc: HO.MAMMO Attending Dr: Farhat Phillip CNM Ordering Physician: FARHAT PHILLIP CNM Date of Service: 12/01/24 Procedure(s): US breast RT limited mamm only Accession Number(s): [id number] cc: Karen Guthrie; FARHAT PHILLIP CNM EXAMINATION: [...] 12/01/24 1257 DD/ 1220 TD/TT: 12/01/24 1235 Moving Picture Operator: us Farhat Phillip CNM IMG US PROCEDURES Final R esult * BI Mammogram Diagnostic Tomosynthesis Bilateral (12/01/2024 12:15 PM EDT) Anatomical Region Laterality Modality Breast Bilateral Mammography 12/01/2024 12:1 5 PM EDT Narrative 12/01/2024 1:00 PM EDT ? [facility] [place] ? [address] ?[place] [address] ?[phone] ? Mammography Report ? Signed ? Patient: Baker,Jacki I ?MR#: [id number] ?? [id number] ? : 1955 ?Acct:[id number] ? Age/Sex: 69 / F ?ADM Date: 04/09/25 ? Loc: HO.MAMMO ? Attending Dr: Farhat Phillip CNM ? Ordering Physician: FARHAT PHILLIP CNM ?Results: 1 ?? Negative ? Date of Service: 12/01/24 ?Follow Up: 1 Year From Orig ?? inal Mammogram ? Procedure(s): MM tomosynthesis diagnostic BI ?? Accession Number(s): [id number] ? cc: Karen Guthrie; FARHAT PHILLIP CNM [...] DD/ 1215 ? TD/TT: 12/01/24 1223 ? Moving Picture Operator: ? Procedure Note Donotwestoninterpreter, Image - 12/01/2024 [facility] [address] [place] [address] Mammography Report Signed Patient: Jacki Baker IMR#: [id number] : 7Acct:[id number] Age/Sex: 69 / FADM Date: 12/01/24 Loc: HO.MAMMO Attending Dr: Farhat Phillip CNM Ordering Physician: FARHAT PHILLIPesults: 1 Negative Date of Service: 12/01/24Follow Up: 1 Year From Orig ina Mammogram Procedure(s): MM tomosynthesis diagnostic BI Accession Number(s): [id number] cc: Karen Guthrie; FARHAT PHILLIP CNM EXAMINATION: [...] 12/01/24 1257 DD/ 1215 TD/TT: 12/01/24 1223 Moving Picture Operator: us Farhat Phillip CNM IMG BI PROCEDURES Final R esult * Hepatitis C Antibody with Reflex to HCV, RNA, Quantitative, Real-Time PCR (11/05/2024 10:58 AM EDT) Hepatitis C Antibody Nonreactive Nonreactive [facility] Comment:Antibodies to HCV no t detected; does not exclude early acuteHCV infection. Blood Venous blood specimen / Unknown 11/05/2024 10:58 AM EDT 11/05/2024 1:32 PM EDT us Karen Guthrie MD LAB BLOOD ORDERABLES Final Res ult [facility] [address] [place] [phone] * (ABNORMAL) Lipid Panel, Standard (11/05/2024 10:58 AM EDT) Triglycerides 328(H) <150 mg/dL [facility] Comment:Desirable Triglyceri de: less than 150 mg/dLBorderline High Triglyceride 150-199 mg/dLHigh Triglyceride: 200-499 mg/dLVery High Triglyceride: greater than or equal to 5OO mg/dL Cholesterol 147 <200 mg/dL [facility] Comment:Desirable Cholestero l: less than 200 mg/dLBorderline High Cholesterol: 200-239 mg/dLHigh Cholesterol: greater than 239 mg/dL LDL Cholesterol Calculated 38 <100 mg/dL [facility] Comment:Desirable LDL: less than 100 mg/dLNear Optimal/Above Optimal LDL: 110- 129 mg/dLBorderline High LDL: 130-159 mg/dLHigh LDL: 160-189 mg/dLVery High LDL: greater than or equal to 190 mg/dL HDL Cholesterol 44 >40 mg/dL [facility] Comment:Desirable HDL: great er than 40 mg/dL Note: This HDL assay may give artificially low results in patients with liver disease. Blood Venous blood specimen / Unknown 11/05/2024 10:58 AM EDT 11/05/2024 1:32 PM EDT Karen Guthrie MD LAB BLOOD ORDERABLES Final Res ult [facility] [address] [place] [phone] * (ABNORMAL) POCT HGB A1C (11/05/2024 [...] Media Lot # [id number] Lot# Expiration Date Blood Capillary blood specimen / Unknown 11/05/2024 10:35 AM EDT Karen Guthrie MD POINT OF CARE TEST ENTER/EDIT ORDERABLES Final Result * (ABNORMAL) Glucose, Whole Blood (10/01/2024 9:19 AM EST) Glucose, Whole Blood 297(H) 60 - 115 mg/dL [facility] Comment:METER #: [id number] 5Testing performed in the Endocrinology Department [address] , [address], [facility]. 10/01/2024 9:19 AM EST 10/01/2024 9:27 AM EST Generic External Data Provider LAB BLOOD ORDERAB LES Final Result Performing Organization Address [facility] Co de Phone Number [facility] [address] [place] [phone] * (ABNORMAL) Albumin, Random Urine W/Creatinine (09/22/2023 9:54 AM EST) Pathologist [facility] Creatinine, Urine 228.61 mg/dL [facility] Microalbumin Urine 1,362.0 mg/L [facility] Microalbum Creatinine Ratio Ur 595.7(H) <30 ug/mg cr [facility] Comment:Albumin/Creatinine R atio Reference Ranges: Normal: < 30 ug/mg creatinine Microalbuminuria: 30 - 300 ug/mg creatinineClinical Albuminuria: > 300 ug/mg creatinine Urine (Urine, Random) 09/22/2023 9:54 AM EST 09/22/2023 11:03 AM EST us Karen Guthrie MD LAB URINE ORDERABLES Final Res ult Performing Organization Address [facility]/ZIP Co de Phone Number [facility] [address] [place] [phone] * FIT DNA/Cologuard Cancer Screening (04/02/2023) Pathologist [facility] Cologuard Cancer Screen Negative Stool Karen Guthrie MD HEALTH MAINTENANCE Final Resul t from Last 3 Months or Most Recently Relevant to Health Maintenance Insurance [facility] Care Teams Case Checker Relationship Specialty Start Date End Date Karen Guthrie MD [address] [place] [address] PCP - General Family Medicine 07/15/22
--- OUTSIDE RECORDS SUMMARY | 2024-12-07 11:47 | XMS_ITS | Encounter Summary ---
Author Organization [employer] Address [address] [facility] [place] [address] Care Team Providers Care Enterer Name Role Phone Karen Guthrie MD Primary Care Provider [phone] Reason for Visit * Reason Onset Date Comments Results 12/02/2024 Encounter Details Date Type Department Care Team ([facility] Contact Info) Description 12/02/2024 Telephone [facility] [address] [place] [address] Karen Guthrie MD [address] [place] [address] Results Social History Tobacco Use Types Packs/Day [...] AM EDT Tc placed to patient using [email or web address]#ID [id number] regarding below message. RN informed patient of [...] Description 01/21/2025 10:00 AM EDT Office Visit [facility] [address] [facility] [address] Yocasta Jones, OD [address] [place] [address] documented as of this encounter Visit Diagnoses Not on filedocumented in this encounter Additional Health Concerns Assessment Noted Time PHQ-9 Depression Total Score: 21 025 10:33 AM EDT documented as of this encounter Care Teams Enterer Relationship Specialty Start Date End Date Karen Guthrie MD [address] [place] [address] PCP - General Family Medicine 07/15/22 documented as of this encounter
--- OUTSIDE RECORDS SUMMARY | 2024-12-07 11:47 | XMS_ITS | Encounter Summary ---
Author Organization [employer] Address [address] [facility] [place] [address] Care Team Providers Care Internal Controls Analyst Name Role Phone Karen Guthrie MD Primary Care Provider [phone] Reason for Visit * Reason Comments Med Refill Encounter Details Date Type Department Care Team ([facility] Contact Info) Description 01/31/2024 Refill [facility] [address] [place], [place] [phone] Karen Guthrie MD [address] [place], [place] [phone] Vitamin D deficiency Social History Tobacco Use [...] Description 01/21/2025 10:00 AM EDT Office Visit [facility] OPT[facility] [address] [place] [address] Robert, Yocasta, OD [address] [place] [address] documented as of this encounter Visit Diagnoses Diagnosis Vitamin D deficiency documented in this encounter Additional Health Concerns Assessment Noted Time PHQ-9 Depression Total Score: 14 024 1:04 PM EDT documented as of this encounter Care Teams Internal Controls Analyst Relationship Specialty Start Date End Date Karen Guthrie MD [address] [place] [address] PCP - General Family Medicine 07/15/22 documented as of this encounter
[2024-12-11 20:13] LABS: FIB-ALT 27 U/L (6-29); FIB-Alpha-2-Macroglobulin 347 mg/dL (106-279); FIB-Apolipoprotein A1 165 mg/dL (101-198); FIB-GGT 96 U/L (3-65); FIB-Haptoglobin 262 mg/dL (43-212); FIB-Total Bilirubin 0.3 mg/dL (0.2-1.2); Liver Fibrosis Score 0.38; Liver Fibrosis Stage F1-F2; Nec Inflam Act Grade A0; Nec Inflam Act Score 0.14; Reference ID 5445050
== END 2024-12-07 08:34 | disposition home or self-care (01) ==
LOC: HO.LAB 08:33
PROVIDERS: PCP General Practice; Visit Provider Nurse Practitioner Family
DX: K76.0 Fatty (change of) liver, not elsewhere classified (principal); R74.01 Elevation of levels of liver transaminase levels
CPT/HCPCS: 36415; 80076; 81596; 99212

== ENCOUNTER 2024-12-23 10:32 | Outpatient (REF) | payer OTHER, SELFPAY ==
[2024-12-23] MEDS: gadobutroL 7.5 ML VIAL IVPUSH (11:12)
--- OUTSIDE RECORDS SUMMARY | 2024-12-23 12:04 | XMS_ITS | Data Portability ---
Author Organization [employer] [place] in - [facility] Address [address] [place] [address] Care Team Providers Care Digital Press Operator Name Role Phone [facility] Referring Provider YASEMIN LAMBERT Primary Care Provider Assessment Encounter Date Assessment Date Assessment LastModified by Organization Details LastModified Time 10/18/2022 10/18/2022 I provided real -time medical direction via phone for this encounter, and was available for additional phone based assistance as needed. I have reviewed and agree with the Assessment and Plan as documented by the Textile Technologist. Patient given the opportunity to ask questions. Not available 10/18/2022 23:13:30 12/11/2022 12/11/2022 I provided real -time medical direction via phone for this encounter, and was available for additional phone based assistance as needed. I have reviewed and agree with the Assessment and Plan as documented by the Textile Technologist. Patient given the opportunity to ask questions. Advised if develops CP/severe SOB/ increased abd pain/uncontrolle d n/v/d or black/bloody emesis or stool/ AMS/ syncope/ hi fever to call 911- verbalized understanding of instructions [email or web address] Not available 12/11/2022 16:54:21 05/06/2023 05/06/2023 I provided real -time medical direction via phone for this encounter, and was available for additional phone based assistance as needed. I have reviewed the Assessment and Plan as documented by the Textile Technologist. Patient given the opportunity to ask questions. [email or web address] Not available 05/07/2023 10:28:45 Plan of Treatment Reminders Order Date Submit Date Provider Last Modified By Organization Details Last Modified Time Details Appointments None recorded. Lab BMP, serum or plasma 2022 023 [email or web address] 0 [facility], [address] [place] [address], [id number] 3 10:28:26 rapid SARS CoV 2 Ag, QL IA, respiratory specimen 2022 023 [email or web address] 0 [facility], [address] [place] [address], [id number] 3 10:28:26 rapid flu (A+B) 2022 023 [email or web address] 0 [facility], [address] [place] [address], [id number] 3 10:28:26 BMP, serum or plasma 2022 023 [email or web address] 0 [facility], [address] [place] [address], [address] [place] [address] 3 17:09:27 urinalysis, dipstick 2022 023 [email or web address] 0 [facility], [address] [place] [address], [id number] 3 23:34:46 BMP, serum or plasma 2022 023 [email or web address] 0 [facility], [address] [place] [address], [id number] 3 23:34:46 Referral None recorded. Procedures None recorded. Surgeries None recorded. Imaging None recorded. Medication Orders sodium chloride 0.9 % intravenous solution 2022 023 [email or web address] 0 [facility], [address] [place] [address], [id number], 3 10:28:26 ondansetron HCl (PF) 4 mg/2 mL injection solution 2022 023 [email or web address] 0 [facility], [address] [place] [address], [id number], 3 10:28:26 ondansetron 4 mg disintegrat ing tablet 2022 023 [facility], [address] [place] [address], [id number], 3 17:01:14 sodium chloride 0.9 % intravenous solution 2022 023 [email or web address] 0 [facility], [address] [place] [address], [id number], 3 17:09:27 ondansetron HCl (PF) 4 mg/2 mL injection solution 2022 023 [email or web address] 0 [facility], [address], [place], [id number], 3 17:09:27 sodium chloride 0.9 % intravenous solution 2022 023 [email or web address] 0 Not available 23:34:46 Patient TargetsNo targets recorded. Patient InstructionsNo instructions recorded. Reason for Referral None Reported. Results Created Date Observation Date Name Description Value Unit Range Abnormal Flag Note LastModifiedBy Organization Detail LastModifiedTime 10/18/1910/18/2022 urina lysis , dipst ick Leukocytes neg Not Available [facility] [address] [place] [address], [id number] 10/18/2022 23:20:01 10/18/19 23 10/18/2022 urina lysis , dipst ick Nitrite negati ve Not Available Main - [facility] [address], [address] 10/18/2022 23:20:01 10/18/19 23 10/18/2022 urina lysis , dipst ick Urobilinogen neg Not Available [facility] [address] [place] [address], [id number] 10/18/2022 23:20:01 10/18/19 23 10/18/2022 urina lysis , dipst ick Protein neg Not Available Main - [facility] [address], [phone] 10/18/2022 23:20:01 10/18/19 23 10/18/2022 urina lysis , dipst ick pH 6.5 Not Available [facility] - [facility] [address], [address] 10/18/2022 23:20:01 10/18/19 23 10/18/2022 urina lysis , dipst ick Blood neg Not Available [facility] - [facility] [address], [address] [place] [address] 10/18/2022 23:20:01 10/18/19 23 10/18/2022 urina lysis , dipst ick Specific Casanova 1;025 Not Available [facility] [address] [place] [address], [address] [place] [address] 10/18/2022 23:20:01 10/18/19 23 10/18/2022 urina lysis , dipst ick Ketone trace Not Available [facility] - [facility] michael [address] [place] [address], [address] [place] [address] 10/18/2022 23:20:01 10/18/19 23 10/18/2022 urina lysis , dipst ick Bilirubin trace Not Available Main - I [address], [address] [place] [address] 10/18/2022 23:20:01 10/18/19 23 10/18/2022 urina lysis , dipst ick Glucose negati ve Not Available [facility] [address] [place] [address], [address] [place] [address] 10/18/2022 23:20:01 10/18/19 23 10/18/2022 urina lysis , dipst ick Appearance clear Not Available [facility] [address] [place] [address], [address] [place] [address] 10/18/2022 23:20:01 10/18/19 23 10/18/2022 urina lysis , dipst ick Color yelllo w Not Available [facility] [address] [place] [address], [address] [place] [address] 10/18/2022 23:20:01 10/18/19 23 10/18/2022 BMP, serum or plasm a BUN 8 Not Available [facility] - [facility] [address], [address] [place] [address] 10/18/2022 23:20:03 10/18/19 23 10/18/2022 BMP, serum or plasm a Ca I az = 1.21 Not Available [facility] [address] [place] [address], [address] [place] [address] 10/18/2022 23:20:03 10/18/19 23 10/18/2022 BMP, serum or plasm a CI- 102 Not Available Main - [facility] [address], [address] [place] [address] 10/18/2022 23:20:03 10/18/19 23 10/18/2022 BMP, serum or plasm a CRE 0.5 Not Available [facility] - [facility] [address], [address] [place] [address] 10/18/2022 23:20:03 10/18/19 23 10/18/2022 BMP, serum or plasm a GLU 100 Not Available [facility] - [facility] [address], [address] [place] [address] 10/18/2022 23:20:03 10/18/19 23 10/18/2022 BMP, serum or plasm a K+ 4 Not Available [facility] - [facility] [address], [address] [place] [address] 10/18/2022 23:20:03 10/18/19 23 10/18/2022 BMP, serum or plasm a Na+ 138 Not Available [facility] - Ins [address], [address] [place] [address] 10/18/2022 23:20:03 10/18/19 23 10/18/2022 BMP, serum or plasm a tCO2 25 Not Available Main - [facility] [address], [address] [place] [address] 10/18/2022 23:20:03 12/12/19 23 12/11/2022 BMP, serum or plasm a BUN 11 Not Available [facility] - Ins [address], [address] [place] [address] 12/11/2022 17:06:59 12/12/19 23 12/11/2022 BMP, serum or plasm a Ca I az 1.26 Not Available [facility] - [address], [address] [place] [address] 12/11/2022 17:06:59 12/12/19 23 12/11/2022 BMP, serum or plasm a CI- 106 Not Available [facility] - [facility] [address], [address] [place] [address] 12/11/2022 17:06:59 12/12/19 23 12/11/2022 BMP, serum or plasm a CRE 0.6 Not Available [facility] - [facility] [address], [address] [place] [address] 12/11/2022 17:06:59 12/12/19 23 12/11/2022 BMP, serum or plasm a GLU 146 Not Available [facility] - [facility] [address], [address] 12/11/2022 17:06:59 12/12/19 23 12/11/2022 BMP, serum or plasm a K+ 3.9 Not Available [facility] - [facility] [address], [address] [place] [address] 12/11/2022 17:06:59 12/12/19 23 12/11/2022 BMP, serum or plasm a Na+ 140 Not Available [facility] - [facility] [address], [address] [place] [address] 12/11/2022 17:06:59 12/12/19 23 12/11/2022 BMP, serum or plasm a tCO2 19 Not Available [facility] - [facility] [address], [address] [place] [address] 12/11/2022 17:06:59 05/06/20 23 05/06/2023 rapid flu (A+B) Flu negati ve Not Available [facility] [address] [place] [address], [address] [place] [address] 05/06/2023 12:56:53 05/06/2005/06/2023 rapid SARS CoV 2 Ag, QL IA, respi rator y speci men rapid SARS CoV 2 Ag, QL IA, respiratory specimen negati ve Not Available [facility] [address] [place] [address], [address] [place] [address] 05/06/2023 12:56:51 05/07/2005/07/2023 BMP, serum or plasm a BUN 14 Not Available Main - [facility] [address], [address] 05/06/2023 12:56:14 05/07/2005/07/2023 BMP, serum or plasm a Ca I AZ 5(nl) Not Available [facility] [address] [place] [address], [address] 05/06/2023 12:56:14 05/07/2005/07/2023 BMP, serum or plasm a CI- 103 Not Available Main - [facility] [address], [address] 05/06/2023 12:56:14 05/07/20 23 05/07/2023 BMP, serum or plasm a CRE 0.54 Not Available Main - [facility] [address], [address] 05/06/2023 12:56:14 05/07/20 23 05/07/2023 BMP, serum or plasm a GLU 163 Not Available [facility] - [facility] [address], [address] 05/06/2023 12:56:14 05/07/20 23 05/07/2023 BMP, serum or plasm a K+ 4.5 Not Available [facility] - [facility] [address], [address] 05/06/2023 12:56:14 05/07/2005/07/2023 BMP, serum or plasm a Na+ 139 Not Available [facility] - [facility] [address], [address] [place] [address] 05/06/2023 12:56:14 05/07/2005/07/2023 BMP, serum or plasm a tCO2 23 Not Available [facility] - [facility] [address], [address] 05/06/2023 12:56:14 Result Notes None recorded. Medical Equipment None Reported. Allergies Allergen ID Allergen Name Allergen Category Reaction Reaction Severity Criticality Documentation Date Start Date Code Code System Note Provider Name and Address Organization Details Recorded Time 1956 Product containin g angiotens in-conver ting enzyme inhibitor (product) medicatio n cough Not available Not available 10/18/2022 71189 009 SNOMED Ale Mendoza MD [address] [place] [address],[address], [place], [address], [facility] 3 22:57:07 1958 Bactrim medicatio n Not available Not available Not available 10/18/2022 34054 9 RxNorm Ale Mendoza MD [address] [place] [address],[address], [place], [address], [facility] 3 22:57:21 1959 Product containin g penicilli n (product) medicatio n Not available Not available Not available 10/18/2022 02820 8001 SNOMED Not Available [facility] - production [...] Available No t Available [employer] [address] [place] USE TO TEST BLOOD SUGAR THREE TIMES DAILY AND NEEDED active Not Available Not Available No t Available Vitals Date Recorded Body weight Respiratory rate Heart rate Body height Body temperature Oxygen saturation Oxygen saturation in Arterial blood by Pulse oximetry Systolic blood pressure Diastolic blood pressure Provider Name and Address Organization Details Last Updated DateTime 3 26223.6 4 g 16 /min 94 /min 162.56 [...] mm[Hg] 148 mm[Hg] 82 mm[Hg] Not Available [employer] - production 3 12:02:20 Date Recorded Body weight Provider Name an d Address Organization Details Last Updated DateTime 10/18/2022 61118.22 g Kristy Acosta [address] [place] [address],[address], [place], [address], [place] - [facility] 10/18/2022 23:07:43 Date Recorded Respiratory [...] 3 18 /min 98.6 [degF] 100 /min 87652.8 g 98 % 98 % 157.48 cm 98.6 [degF] 73651.8 g 100 /min 18 /min 157.48 cm 98 % 98 % 135 mm[Hg] 87 mm[Hg] 135 mm[Hg] 87 mm[Hg] Not Available [employer] 3 13:15:40 Social History None recorded. Functional [...] Note 7998 [facility] [address] [place] [phone] 10/18/2022 11:17:31 10/21/2022 09:40:55 Gastroenteritis 92658590 K52.9 w/ GERD- advised BRAT/ bland diet- [...] [id number] Ale Mendoza MD Main - [facility] [address] [place] [address] 12/11/2022 11:50:55 12/13/2022 09:41:45 Abdominal pain 55491251 R10.9 w/ n/v/d- advised to hold the [...] lo threshold for going to the ED [id number] Ale Mendoza MD Main - [facility] [address] [place] [phone] 05/06/2023 12:51:33 05/07/2023 11:54:31 Abdominal pain 37766243 R10.9 w/ n/v/d- significan t abd distention and very elevated lactate- although remainder labs nl/ vss - concern for SBO/ risk for perforatio n/ intra-abdo bhanu infection/ early sepsis- advised needs imaging and further emergent eval / treatment in the ED- patient agreeable- report called to [place] [facility]. S medic arrived for EMS so [facility] medic rode in to continue IVF [...] [facility] - DOS PRIOR TO 2022 - DUAL ELIGIBLE (MEDICARE REPLACEMENT/ADV ANTAGE - HMO) Jacki Baker [id number] Jacki Baker 12/11/2022 1 [facility] - DOS PRIOR TO 2022 - DUAL ELIGIBLE (MEDICARE REPLACEMENT/ADV ANTAGE - HMO) Jacki Cottrellendez [id number] Jacki Lambertez 05/06/2023 1 [facility] - DOS ON OR AFTER 2022 - DUAL ELIGIBLE - INTERMEDIATE OPTIONS AND ONE CARE (MEDICARE REPLACEMENT/ADV ANTAGE - HMO) Jacki Lambertez [id number] Jacki Lambertez Notes Date Note Type Note [...] ..................... ..................... ..................... ..................... ..................... ..................... ............... Textile Technologist Note From Elias Washington: PT c/o n/v/d [...] and given 15mg Toradol ordered and given Textile Technologist Allergies: Aspirin, Omeprazole, Penicillin ..................... ..................... ..................... [...] with these spells. Ale Mendoza MD [address] [facility],[address], [place], [address], [place] [email or web address] 10/18/2022 23:36:31 12/11/2022 text/html HPI: Call to [...] ..................... ..................... ..................... ..................... ..................... ..................... ............... Textile Technologist Note From Steve Lozoya: Pt answers door, [...] zofran 4mg IV ? 2 BMP to [facility] via portal. Pt advised by [facility] to stop taking antibiotics until she can talk to her PCP, eat only BRAT diet (explained) and drink clear liquids. Red flags and pt education discussed. Textile Technologist Allergies: Aspirin, Omeprazole, Penicillin, Trimethoprim-Sulfamet hoxazole ..................... [...] denies UTi s/s Ale Mendoza MD [address] [facility],[address], [place], [address], [facility] 12/11/2022 17:10:18 05/06/2023 text/html HPI: Vomiting and wants to make sure she is not dehydrated>has been experiencing symptoms for about 3 days. ..................... ..................... ..................... ..................... ..................... ..................... ............... [facility] Nursing Assessment: Comments: Requestor unable to give additional details. ..................... ..................... ..................... ..................... ..................... ..................... ............... Textile Technologist Note From Silvano Garcia: Pt reports n/v/d for three days. Pt denies CP, SOB, fevers, chills, hematochezia, hematemesis. Pt is alert, NAD. VSS. Afebrile. Neuro exam and gait normal. Lungs CTA. ABD is distended and tender in epigastric region. + BS x4. No LLE. Rapid covid and flu negative. POC BMP lactate 36.2. [facility] contacted and advised pt be seen in ED. 911 initiated. Normal saline 500 mg IV and Ondansetron 4 mg IVP administered en route to [place] ED. [facility] survey compiler maintained all pt care until transfer of care to [place] RN. [facility] Lab Orders: BMP, serum or plasma: Performed rapid SARS CoV 2 Ag, QL IA, respiratory specimen: Performed rapid flu (A+B): Performed ..................... ..................... ..................... ..................... ..................... ..................... ............... Disposition: Fulfilled Ale Mendoza MD [address] [place] [address],[address], [place], [address], MARII DELUCA 05/07/2023 10:32:09 OBGyn Episode No OBEpisode recorded.
--- OUTSIDE RECORDS SUMMARY | 2024-12-23 12:04 | XMS_ITS | Encounter Summary ---
Author Organization [employer] Address [address] [place] [address] Care Team Providers Care Supplier Specialist Name Role Phone Karen Guthrie MD Primary Care Provider [phone] Reason for Visit * Reason Comments Med Refill Encounter Details Date Type Department Care Team ([facility] Contact Info) Description 01/31/2024 Refill [facility] MEDICINE [address] [place], [place] [phone] Karen Guthrie MD [address] [place], [place] [phone] Vitamin D deficiency Social History Tobacco Use [...] Description 01/21/2025 10:00 AM EDT Office Visit [facility] OPTOMETRY [address] [place] [address] Robert, Yocasta, OD [address] [place] [address] documented as of this encounter Visit Diagnoses Diagnosis Vitamin D deficiency documented in this encounter Additional Health Concerns Assessment Noted Time PHQ-9 Depression Total Score: 14 024 1:04 PM EDT documented as of this encounter Care Teams Supplier Specialist Relationship Specialty Start Date End Date Karen Guthrie MD [address] [place] [address] PCP - General Family Medicine 07/15/22 documented as of this encounter
--- OUTSIDE RECORDS SUMMARY | 2024-12-23 12:04 | XMS_ITS | Encounter Summary ---
Author Organization [employer] Address [address] [place] [address] Care Team Providers Care Order Picker Name Role Phone Karen Guthrie MD Primary Care Provider [phone] Encounter Details Date Type Department Care Team ([facility] st Contact Info) Description 09/23/2024 Orders Only [facility] MEDICINE [address] [place], [place] [phone] Karen Guthrie MD [address] [place], [place] [phone] Social History Tobacco Use Types Packs/Day Years [...] Description 01/21/2025 10:00 AM EDT Office Visit [facility] OPTOMETRY [address] [place] [address] Robert, Yocasta, OD [address] [place] [address] documented as of this encounter Visit Diagnoses Not on filedocumented in this encounter Additional Health Concerns Assessment Noted Time PHQ-9 Depression Total Score: 14 024 1:04 PM EDT documented as of this encounter Care Teams Order Picker Relationship Specialty Start Date End Date Karen Guthrie MD [address] [place], [place] [phone] PCP - General Family Medicine 07/15/22 documented as of this encounter
--- OUTSIDE RECORDS SUMMARY | 2024-12-23 12:04 | XMS_ITS | Clinical Summary ---
Author Organization [employer] Address [address] [facility] 7t [place] [address] Care Team Providers Care Business Continuity Manager Name Role Phone Karen Guthrie MD Primary Care Provider [phone] Allergies Active Allergy Reactions Criticality Noted Date [...] at bedtime. 023 Active Continuous Blood Gluc Auto Repair Technician (AdezeStyle [place]if [place]) device USE TO TEST BLOOD SUGAR THREE TIMES DAILY AND NEEDED 1 each 023 Active benztropine (Cogentin) 0.5 MG tablet Take 0.5 mg by mouth at bedtime. 023 Active NovoLOG FLEXPEN 100 UNIT/ML penIndications:Ty pe 2 diabetes mellitus with other specified complication, with long-term current use of insulin ([facility]) INJECT 12 UNITS SUBCUTANEOUSLY WITH BREAKFAST, INJECT 10 UNITS WITH LUNCH, AND INJECT 12 UNITS WITH DINNER 15 mL 024 Active bisacodyl (Dulcolax) 10 MG suppository UNWRAP AND INSERT 1 SUPPOSITORY RECTALLY DAILY NEEDED FOR CONSTIPATION 024 Active D3 Super Strength 50 MCG (1999 [place]) capsuleIndication s:Vitamin D deficiency TAKE 1 CAPSULE BY MOUTH [...] 024 Active omeprazole (PriLOSEC) [address] capsuleIndication s:Gastroesophagea l reflux disease without esophagitis TAKE 1 CAPSULE BY MOUTH TWICE DAILY IN THE MORNING AND IN THE EVENING BEFORE MEALS 180 capsule 3 024 Active cetirizine (ZyrTEC) 10 MG tablet TAKE 1 TABLET BY MOUTH TWICE DAILY FOR ANGIOEDEMA 180 tablet 3 024 Active atorvastatin (Lipitor) 40 MG tabletIndications :Hyperlipidemia, unspecified hyperlipidemia type Take 1 tablet (40 mg) by mouth at bedtime. 90 tablet 3 024 Active senna (Senokot) 8.6 MG tablet Take 1 tablet (8.6 mg) by mouth Once per day. For constipation 90 tablet 3 024 Active losartan (Cozaar) 50 MG tabletIndications :Essential hypertension TAKE 1 TABLET BY MOUTH EVERY MORNING (HIGH BLOOD PRESSURE) 90 tablet 3 024 Active Jardiance 10 MG 025 Active Tresiba FlexTouch 200 UNIT/ML injection INJECT 85 UNITS SUBCUTANEOUSLY EVERY DAY 18 mL 3 025 Active metFORMIN XR (Glucophage-XR) 500 MG 24 hr tablet 025 Active glucose blood (FREESTYLE LITE) test stripIndications: Type 2 diabetes mellitus with other specified complication, unspecified whether generation engineering technologist insulin use ([facility]) TEST BLOOD SUGAR 4 TO 6 TIMES PER DAY 100 strip 11 025 Active insulin pen needle (BD Pen Needle Inocencia U/F) 32G x 4 mm miscIndications:T ype 2 diabetes mellitus with other specified complication, unspecified whether generation engineering technologist insulin use ([facility]) USE DIRECTED TO INJECT DAILY 100 each 5 025 Active Multiple Vitamin (Multivitamin) tablet TAKE 1 TABLET BY MOUTH EVERY MORNING WITH FOOD 90 tablet 3 025 Active Multiple Vitamin (Multivitamin) tablet TAKE 1 TABLET BY MOUTH EVERY MORNING WITH FOOD 90 tablet 3 024 2024 Discontinued insulin pen needle (Pentips) 32G x 4 mm miscIndications:T ype 2 diabetes mellitus with other specified complication, unspecified whether generation engineering technologist insulin use ([facility]) USE DIRECTED TO INJECT DAILY 100 each 5 024 2024 Discontinued Active Problems Problem Noted Date Diagnosed Date [...] [place] [facility] [place] get [place], overdue In the [...] Current A1c: 9.3, continue insulin titration with [facility] Endo BMP: Lab Results Component Value Date [...] DEPARTMENT Provider, Generic External Data 12/07/2024 Refill [facility] [address] [place] [address] Karen Guthrie MD 12/02/2024 Telephone [facility] [address] [place] [address] Karen Guthrie MD Results 12/01/2024 Telephone [facility] [address] [place] [address] Fabiola Ortiz RN Results 12/01/2024 Orders Only [facility] [address] [place] [address] Farhat Phillip CNM Bloody discharge from right nipple (Primary Dx); Pre-procedure lab exam 11/30/2024 Refill [facility] [address] [place] [address] Karen Guthrie MD Type 2 diabetes mellitus with other specified complication, unspecified whether senior care insulin use (CMS/HCC) 11/11/2024 Refill [facility] [address] [place] [address] Karen Guthrie MD Type 2 diabetes mellitus with other specified complication, unspecified whether senior care insulin use (CMS/HCC) 11/05/2024 11:00 AM EDT Office Visit [address] [address] Karen Guthrie MD Essential hypertension (Primary Dx); Type 2 diabetes mellitus with hyperglycemia, with long-term current use of insulin (CMS/HCC); Dietary counseling; Exercise counseling; Overweight; Recurrent major depressive episodes, moderate (CMS/HCC); Hyperlipidemia associated with type 2 diabetes mellitus (CMS/HCC) (CMS/HCC) 11/05/2024 Travel 10/29/2024 Patient Outreach [address] [address] Karen Guthrie MD Pre-visit Planning (SDOH screening negative and tobacco screening negative) 10/20/[address] [address] Karen Guthrie MD 10/19/2024 Orders Only [address] [address] Farhat Phillip CNM Bloody discharge from right nipple (Primary Dx) 10/18/2024 2:00 PM EST Office Visit [address] [address] Farhat Phillip CNM Bloody discharge from right nipple (Primary Dx) 10/18/2024 Travel 10/14/[address] [address] Karen Guthrie MD Nurse Triage 10/01/2024 Orders Only GENERIC EXTERNAL DATA DEPARTMENT Provider, Generic External Data from Last 3 Months Immunizations Name Administration [...] 10:00 AM EDT Office Visit [facility] OPTOMETRY [address] [place] [address] Robert, Yocasta, OD [address] [place] [address] Health Maintenance Due Date Last Done Comments CT Colonography 1955 Colonoscopy 1955 FIT 1955 Sigmoidoscopy 1955 Eye Exam 1966 RSV Patients and Patients Aged 60 years or older (1 - Risk 60-74 years 1-dose series) 2016 FOBT 04/02/2024 04/02/2023 Diabetes: Urine Protein Screening 09/22/2024 09/22/2023, 03/22/2020 Diabetes: Hemoglobin A1C 02/05/2025 025, 12/19/2023, 09/22/2023, Additional history exists Diagnostic Breast Imaging 06/02/20252024, 12/01/2024, 07/29/2024, Additional [...] Procedure Name Priority Date/Time Associated Diagnosis Comments LIVER FIBROSIS, FIBROTEST ACTITEST PANEL Routine 12/07/2024 10:35 AM EDT HEPATIC FUNCTION PANEL Routine 10:35 AM EDT [...] mellitus with other specified complication, unspecified whether generation engineering technologist insulin use (CMS/HCC) HM FIT DNA/COLOGUARD CANCER SCREENING Routine 04/02/2023 from Last 3 Months or Most Recently Relevant to Health Maintenance Results * (ABNORMAL) Liver Fibrosis (HCV), FibroTest-ActiTest Panel (12/07/2024 10:35 AM EDT) Liver Fibrosis Score 0.38 [facility] Liver Fibrosis Stage F1-F2 [facility] Liver Fibrosis Interpretation SEE NOTE [facility] Comment:minimal fibrosisFibr o Test Score (f) Metavir Score f>=0 and f<=0.21 : F0 (no fibrosis)f>0.21 and f<=0.27 : F0-F1 (no fibrosis)f>0.27 and f<=0.31 : F1 (minimal fibrosis)f>0.31 and f<=0.48 : F1-F2 (minimal fibrosis)f>0.48 and f<=0.58 : F2 (moderate fibrosis)f>0.58 and f<=0.72 : F3 (advanced fibrosis)f>0.72 and f<=0.74 : F3-F4 (advanced fibrosis)f>0.74 and f<=1.00 : F4 (severe fibrosis) Nec Inflam Act Score 0.14 [facility] Nec Inflam Act Grade A0 [facility] Nec Inflam Act Interpretation SEE NOTE [facility] Comment:no activityActiTest Score (a) Metavir Score a>=0 and a<=0.17 : A0 (no activity)a>0.17 and a<=0.29 : A0-A1 (no activity)a>0.29 and a<=0.36 : A1 (minimal activity)a>0.36 and a<=0.52 : A1-A2 (minimal activity)a>0.52 and a<=0.60 : A2 (significant activity)a>0.60 and a<=0.62 : A2-A3 (significant activity)a>0.62 and a<=1.00 : A3 (severe activity) YCR-Issue-5-Macroglo bulin 347(A) 106 - 279 mg/dL [facility] FIB-Haptoglobin 262(A) 43 - 212 mg/dL [facility] FIB-Apolipoprotein A1 165 101 - 198 mg/dL [facility] FIB-Total Bilirubin 0.3 0.2 - 1.2 mg/dL [facility] FIB-GGT 96(A) 3 - 65 U/L [facility] FIB-ALT 27 6 - 29 U/L [facility] Reference ID [id number] [facility] Footnote SEE NOTE [facility] Comment: The reliability of results is dependent on compliance withthe preanalytical and analytical conditions recommended byBioPredictive. The tests have to be deferred for: acutehemolysis, acute hepatitis, acute inflammation, extrahepatic cholestasis. The advice of a specialist should besought for interpretation in chronic hemolysis and Gilbert'ssyndrome. The test interpretation is not validated in livertransplant patients. Isolated extreme values of one of thecomponents should lead to caution in interpreting theresults. In case of discordance between a biopsy result ivanna test, it is recommended to seek the advice of aspecialist. The causes of these discordances could be due toa flaw of the test or to a flaw in the biopsy: i.e. a liverbiopsy has a 33% variability rate for one fibrosis stage.FibroTest is interpretable for chronic hepatitis B and C,alcoholic and non alcoholic steatosis. ActiTest isinterpretable for chronic hepatitis B and C.The performance characteristics have been determined byUGAME [facility]. Ithas not been cleared or approved by the U.S. Food and DrugAdministration. Performance characteristics refer to theanalytical performance of the test.[employer], the associated logo, [employer] and all associated [employer] yusuf are theregistered trademarks of [employer]. All third partymarks - (R) and (TM) - are the property of their respectiveowners. (C) [id number] [employer]. Allrights reserved.THIS TEST WAS PERFORMED AT:[employer] [id number] [place], [place] ??[id number] MIR MD,PHD,CHAVA 12/07/2024 10:3 5 AM EDT 12/07/2024 10:35 AM EDT Generic External Data Provider LAB BLOOD ORDERAB LES Final Result Performing Organization Address [facility] Co de Phone Number [facility] [address] [place] [phone] * (ABNORMAL) Hepatic Function Panel (12/07/2024 10:35 AM EDT) Bilirubin, Total 0.3 0.0 - 1.0 mg/dL [facility] Bilirubin, Direct <0.1 0.0 - 0.5 mg/dL [facility] Aspartate Amino Transferase 38(H) 5 - 31 U/L [facility] Alanine Aminotransferase 39(H) 0 - 31 U/L [facility] Total Protein 7.6 6.5 - 8.0 g/dL [facility] Albumin Level 4.5 3.5 - 5.0 g/dL [facility] Alkaline Phosphatase 87 39 - 117 U/L [facility] 12/07/2024 10:3 5 AM EDT 12/07/2024 10:35 AM EDT Generic External Data Provider LAB BLOOD ORDERAB LES Final Result Performing Organization Address [facility] de Phone Number [facility] [address] [place] [phone] * Creatinine, Serum (12/02/2024 9:31 AM EDT) Creatinine, Serum 0.91 0.5 - 1.4 mg/dL [facility] Estimated Glomerular Filt Rate >60 [facility] Comment:Chronic Kidney Disea se: Estimated GFR < 60 mL/min/1.84i7Mthtga Kidney Disease: Estimated GFR < 15 mL/min/1.73m2 Blood Venous blood specimen / Unknown 12/02/2024 9:31 AM EDT 12/02/2024 11:34 AM EDT us Farhat Rizzardini CNM LAB BLOOD ORDERABLES Brit l Result Performing Organization Address [facility] Co de Phone Number [facility] [address] [place] [address] [phone] * BUN (Blood Urea Nitrogen) (12/02/2024 9:31 AM EDT) Urea Nitrogen (BUN) 13 9 - 16 mg/dL [facility] Blood Venous blood specimen / Unknown 12/02/2024 9:31 AM EDT 12/02/2024 11:34 AM EDT us Farhat Phillip CNM LAB BLOOD ORDERABLES Brit l Result Performing Organization Address [facility] Co de Phone Number [facility] [address] [place] [address] [phone] * BI US Breast Limited Right (12/01/2024 12:20 PM EDT) Anatomical Region Laterality Modality Breast Right Ultrasound 12/01/2024 12:2 0 PM EDT Narrative 12/01/2024 1:00 PM EDT ? [facility] ? [address] ?[place] [address] ? Ultrasound Report ? Signed ? Patient: Jacki Baker I ?MR#: [id number] ?? [id number] ? : 1955 ?Acct:[id number] ? Age/Sex: 69 / F ?ADM Date: 12/01/24 ? Loc: HO.MAMMO ? Attending Dr: Farhat Phillip CNM ? Ordering Physician: FARHAT PHILLIP CNKristy ?? Date of Service: 12/01/24 ?? Procedure(s): US breast RT limited mamm only ?? Accession Number(s): [id number] ? cc: Karen Guthrie; FARHAT PHILLIP [facility] ? EXAMINATION: ?? MM DIAGNOSTIC DIGITAL BREAST [...] ? Signed By: ?<Electronically signed by Susana Garcia DO in OV> ? 12/01/24 1257 ? DD/ 1220 ? TD/TT: 12/01/24 1235 ? Extension Service Specialist: ? Procedure Note Herson Dangelo - 12/01/2024 [facility] [address] [place] [address] Dr. Schmidt, [place] [address] Ultrasound Report Signed Patient: Jacki Baker [facility]#: [id number] : 7Acct:[id number] Age/Sex: 69 / FADM Date: 12/01/24 Loc: HO.MAMMO Attending Dr: Farhat Phillip CNM Ordering Physician: FARHAT PHILLIP CNM Date of Service: 12/01/24 Procedure(s): US breast RT limited mamm only Accession Number(s): [id number] cc: Karen Guhtrie; FARHAT PHILLIP CNM EXAMINATION: MM DIAGNOSTIC DIGITAL [...] 12/01/24 1257 DD/ 1220 TD/TT: 12/01/24 1235 Extension Service Specialist: Farhat Phillip CNM IMG US PROCEDURES Final R esult * BI Mammogram Diagnostic Tomosynthesis Bilateral (12/01/2024 12:15 PM EDT) Anatomical Region Laterality Modality Breast Bilateral Mammography 12/01/2024 12:1 5 PM EDT Narrative 12/01/2024 1:00 PM EDT ? [facility] ? [address] ?[place], [place] [address] ?[phone] ? Mammography Report ? Signed ? Patient: Baker,Jacki I ?MR#: [id number] ?? [id number] ? : 1955 ?Acct:[id number] ? Age/Sex: 69 / F ?ADM Date: 12/01/24 ? Loc: HO.MAMMO ? Attending Dr: Farhat Phillip CNM ? Ordering Physician: FARHAT PHILLIP CNM ?Results: 1 ?? Negative ? Date of Service: 12/01/24 ?Follow Up: 1 Year From Orig ?? inal Mammogram ? Procedure(s): MM tomosynthesis diagnostic BI ?? Accession Number(s): [id number] ? cc: Karen Guthrie; FARHAT PHILLIP CNM [...] DD/ 1215 ? TD/TT: 12/01/24 1223 ? Extension Service Specialist: ? Procedure Note Herson Dangelo - 12/01/2024 [facility] [address] [place] [address] Mammography Report Signed Patient: Jacki Baker [facility]#: [id number] : 7Acct:[id number] Age/Sex: 69 / FADM Date: 12/01/24 Loc: HO.MAMMO Attending Dr: Farhat Phillip CNM Ordering Physician: FARHAT PHILLIPesults: 1 Negative Date of Service: 12/01/24Follow Up: 1 Year From [facility] Mammogram Procedure(s): MM tomosynthesis diagnostic BI Accession Number(s): [id number] cc: Karen Guthrie; FARHAT PHILLIP CNM EXAMINATION: [...] 12/01/24 1257 DD/ 1215 TD/TT: 12/01/24 1223 Extension Service Specialist: Farhat Phillip CNM IMG BI PROCEDURES Final R esult * Hepatitis C Antibody with Reflex to HCV, RNA, Quantitative, Real-Time PCR (11/05/2024 10:58 AM EDT) Hepatitis C Antibody Nonreactive Nonreactive [facility] Comment:Antibodies to HCV no t detected; does not exclude early acuteHCV infection. Blood Venous blood specimen / Unknown 11/05/2024 10:58 AM EDT 11/05/2024 1:32 PM EDT Karen Guthrie MD LAB BLOOD ORDERABLES Final Res ult Performing Organization Address [facility] de Phone Number [facility] [address] [place] [address] [phone] * (ABNORMAL) Lipid Panel, Standard (11/05/2024 10:58 AM EDT) Triglycerides 328(H) <150 mg/dL [facility] Comment:Desirable Triglyceri de: less than 150 mg/dLBorderline High Triglyceride 150-199 mg/dLHigh Triglyceride: 200-499 mg/dLVery High Triglyceride: greater than or equal to 5OO mg/dL Cholesterol 147 <200 mg/dL [facility] Comment:Desirable Cholestero l: less than 200 mg/dLBorderline High Cholesterol: 200-239 mg/dLHigh Cholesterol: greater than 239 mg/dL LDL Cholesterol Calculated 38 <100 mg/dL [facility] Comment:Desirable LDL: less than 100 mg/dLNear Optimal/Above Optimal LDL: 110- 129 mg/dLBorderline High LDL: 130-159 mg/dLHigh LDL: 160-189 mg/dLVery High LDL: greater than or equal to 190 mg/dL HDL Cholesterol 44 >40 mg/dL [facility] Comment:Desirable HDL: great er than 40 mg/dL Note: This HDL assay may give artificially low results in patients with liver disease. Blood Venous blood specimen / Unknown 11/05/2024 10:58 AM EDT 11/05/2024 1:32 PM EDT us Karen Guthrie MD LAB BLOOD ORDERABLES Final Res ult Performing Organization Address [facility] Co de Phone Number [facility] [address] [place] [address] [phone] * (ABNORMAL) POCT HGB A1C (11/05/2024 [...] Glucose, Whole Blood (10/01/2024 9:19 AM EST) Pathologist [facility] Glucose, Whole Blood 297(H) 60 - 115 mg/dL [facility] Comment:METER #: [id number] 5Testing performed in the Endocrinology Department [address] , [address], [facility]. 10/01/2024 9:19 AM EST 10/01/2024 9:27 AM EST Generic External Data Provider LAB BLOOD ORDERAB LES Final Result [facility] [address] [place] [phone] * (ABNORMAL) Albumin, Random Urine W/Creatinine (09/22/2023 9:54 AM EST) Creatinine, Urine 228.61 mg/dL [facility] Microalbumin Urine 1,362.0 mg/L H [facility] Microalbum Creatinine Ratio Ur 595.7(H) <30 ug/mg cr [facility] Comment:Albumin/Creatinine R atio Reference Ranges: Normal: < 30 ug/mg creatinine Microalbuminuria: 30 - 300 ug/mg creatinineClinical Albuminuria: > 300 ug/mg creatinine Urine (Urine, Random) 09/22/2023 9:54 AM EST 09/22/2023 11:03 AM EST Karen Guthrie MD LAB URINE ORDERABLES Final Res ult [facility] [address] [place] [address] [phone] * FIT DNA/Cologuard Cancer Screening (04/02/2023) Cologuard Cancer Screen Negative Stool Karen Guthrie MD HEALTH MAINTENANCE Final Resul t from Last 3 Months or Most Recently Relevant to Health Maintenance Insurance [facility] ASS[employer]ED OPTIONS (O D-SNP) JENI BULLOCK [id number] Care Teams Business Continuity Manager Relationship Specialty Start Date End Date Karen Guthrie MD [address] [place] [phone] PCP - General Family Medicine 07/15/22
--- OUTSIDE RECORDS SUMMARY | 2024-12-23 12:04 | XMS_ITS | Encounter Summary ---
Author Organization [employer] [facility] Address [address] [facility] [address] [place] [address] Care Team Providers Care Resaw Operator Name Role Phone Karen Guthrie MD Primary Care Provider [phone] Encounter Details Date Type Department Care Team (Late Contact Info) Description 01/10/2023 Orders Only [facility] MED[facility] [address] [place] [address] Karen Guthrie MD [address] [place] [address] Vomiting, unspecified vomiting type, unspecified whether nausea [...] AM EDT Office Visit [facility] OPTOMETRY [address] [place] [address] Robert, Yocasta, OD [address] [place] [address] Scheduled Orders Name Type Priority Associated Diagnoses Orde r Schedule Basic Metabolic Panel Lab Routine Vomiting, unspecified vomiting type, unspecified whether nausea present Expected: 01/10/2023 (Approximate), Expires: 01/11/2024 documented as of this encounter Visit Diagnoses Diagnosis Vomiting, unspecified vomiting type, unspecified whether nausea present- Primary documented in this encounter Care Teams Resaw Operator Relationship Specialty Start Date End Date Karen Guthrie MD [address] [place] [phone] PCP - General Family Medicine 07/15/22 documented as of this encounter
--- OUTSIDE RECORDS SUMMARY | 2024-12-23 12:04 | XMS_ITS | Encounter Summary ---
Author Organization [employer] [facility] Address [address] [facility] 7t [place] [address] Care Team Providers Care Bank Vault Attendant Name Role Phone Quang Vasques MD Primary Care Provider Karen Kang MD Primary Care Provider [phone] Encounter Details Date Type Department Care Team (Latest Contact Info) Description 09/04/2018 Abstract [facility] Dental, Provider, DDS Social History Tobacco [...] Description 01/21/2025 10:00 AM EDT Office Visit [facility] OPTOMETRY [address] [place] [address] Yocasta Jones, OD [address] [place] [address] documented as of this encounter Visit Diagnoses Not on filedocumented in this encounter Care Teams Bank Vault Attendant Relationship Specialty Start Date End Date Quang Vasques MD PCP - General Family Medicine 02/15/20 07/14/22 Karen Guthrie MD [address] [place] [address] PCP - General Family Medicine 07/15/22 documented as of this encounter
--- OUTSIDE RECORDS SUMMARY | 2024-12-23 12:04 | XMS_ITS | Encounter Summary ---
Author Organization [employer] Address [address] [facility] [address] [place] [address] Care Team Providers Care Watch Inspector Name Role Phone Karen Guthrei MD Primary Care Provider [phone] Reason for Visit * Reason Comments Med Refill Encounter Details Date Type Department Care Team ([facility] Contact Info) Description 10/01/2023 Refill [facility] [address] [place], [place] [phone] Karen Guthrie MD [address] [place], [place] [phone] Type 2 diabetes mellitus with other specified complication, unspecified whether termite technician insulin use ([facility]) Social History Tobacco Use Types Packs/Day Years [...] Description 01/21/2025 10:00 AM EDT Office Visit [facility] OPTOMETRY [address] [place], [place] [phone] Yocasta Jones, OD [address] [place] [address] documented as of this encounter Visit Diagnoses Diagnosis Type 2 diabetes mellitus with other specified complication, unspecified whether alf insulin use ([facility]) documented in this encounter Care Teams Watch Inspector Relationship Specialty Start Date End Date Karen Guthrie MD [address] [place] [address] PCP - General Family Medicine 07/15/22 documented as of this encounter
--- OUTSIDE RECORDS SUMMARY | 2024-12-23 12:04 | XMS_ITS | Encounter Summary ---
Author Organization [employer] [facility] Address [address] [facility] [address] [place] [address] Care Team Providers Care Human Relations Teacher Name Role Phone Karen Guthrie MD Primary Care Provider [phone] Encounter Details Date Type Department Care Team (Late Contact Info) Description 01/31/2023 Orders Only [facility] [address] [place] [address] Karen Guthrie MD [address] [place] [address] Constipation, unspecified constipation type (Primary Dx) Social [...] Office Visit [facility] OPT[facility] [address] [place] [address] Robert, Yocasta, OD [address] [place] [address] documented as of this encounter Visit Diagnoses Diagnosis Constipation, unspecified constipation type- Primary documented in this encounter Care Teams Human Relations Teacher Relationship Specialty Start Date End Date Karen Guthrie MD [address] [place] [address] PCP - General Family Medicine 07/15/22 documented as of this encounter
--- OUTSIDE RECORDS SUMMARY | 2024-12-23 12:04 | XMS_ITS | Encounter Summary ---
Author Organization [employer] Address [address] [facility] [address] [place] [address] Care Team Providers Care Comb Winder Name Role Phone Karen Guthrie MD Primary Care Provider [phone] Encounter Details Date Type Department Care Team (Late Contact Info) Description 12/16/2022 Orders Only [facility] MEDICINE [address] [place] [address] Karen Guthrie MD 230 [place] [address] Epigastric pain (Primary Dx) Social History Tobacco [...] Upcoming Encounters Date Type Department Care Team ([facility] Contact Info) Description 01/21/2025 10:00 AM EDT Office Visit [facility] OPTOMETRY [address] [place], [place] [phone] Yocasta Jones, OD 230 [facility] [place] [address] documented as of this encounter Procedures Procedure Name Priority Date/Time Associated Diagnosis Comments GLUCOSE, WHOLE BLOOD Routine 01/01/2023 10:57 AM EDT Epigastric pain GLUCOSE, WHOLE BLOOD Routine 01/01/2023 10:32 AM EDT Epigastric pain documented in this encounter Results * Glucose, Whole Blood (01/01/2023 10:57 AM EDT) Glucose, Whole Blood 95 60 - 115 mg/dL [facility] Comment:METER #: [id number] Testing performed in the Endocrinology Department [address] , [address], [facility]. 01/01/2023 10:5 7 AM EDT 01/01/2023 11:05 AM EDT [facility] External Provider LAB BLO OD ORDERABLES Final Result Performing Organization Address City/[facility]/ZIP Co de Phone Number [facility] [address] [place] [phone] * Glucose, Whole Blood (01/01/2023 10:32 AM EDT) Glucose, Whole Blood 60 60 - 115 mg/dL [facility] Comment:METER #: [id number] 5Testing performed in the Endocrinology Department [address] , [address], [facility]. 01/01/2023 10:3 2 AM EDT 01/01/2023 10:38 AM EDT [facility] External Provider LAB BLO OD ORDERABLES Final Result Performing Organization Address [facility]/ZIP Co de Phone Number [facility] [address] [place] [phone] documented in this encounter Visit Diagnoses Diagnosis Epigastric pain- Primary Abdominal pain, epigastric documented in this encounter Care Teams Comb Winder Relationship Specialty Start Date End Date Karen Guthrie MD [address] [place] [address] PCP - General Family Medicine 07/15/22 documented as of this encounter
--- OUTSIDE RECORDS SUMMARY | 2024-12-23 12:04 | XMS_ITS | Encounter Summary ---
Author Organization [facility] Address [address] [facility] [place] [address] Care Team Providers Care Pipeline Executive Name Role Phone Karen Guthrie MD Primary Care Provider [phone] Encounter Details Date Type Department [facility] Description 04/18/2023 Orders Only [facility] MEDICINE [address] [place] [address] Karen Guthrie MD 230 [place] [address] Social History Tobacco Use Types Packs/Day Years [...] Description 01/21/2025 10:00 AM EDT Office Visit [facility] OPTOMETRY [address] [place], [place] [phone] Robert, Yocasta, OD 230 [place] [address] documented as of this encounter Visit Diagnoses Not on filedocumented in this encounter Care Teams Pipeline Executive Relationship Specialty Start Date End Date aKren Guthrie MD 230 [place] [address] PCP - General Family Medicine 07/15/22 documented as of this encounter
--- OUTSIDE RECORDS SUMMARY | 2024-12-23 12:04 | XMS_ITS | Encounter Summary ---
Author Organization [employer] Address [address] [facility] 7t [place] [address] Care Team Providers Care Junior Brand Manager Name Role Phone Karen Guthrie MD Primary Care Provider [phone] Reason for Referral * Imaging (STAT) - Closed Specialty Diagnoses / Procedures Referred By Contac t Referred To Contact Diagnoses LUQ pain Epigastric pain Procedures CT Abdomen Pelvis w/ Contrast Karen Guthrie MD 230 [place] [address] Phone: tel: fax: [facility] [address] [place] [address] Phone: tel: fax: Referral ID Status Reason Start Date Expiration Date Visits Re quested Visits Authorized [id number] Closed 01/02/2023 01/02/2024 1 1 Encounter Details Date Type Department Care Team (Late st Contact Info) Description 01/02/2023 Orders Only [facility] MEDICINE 230 [place], [place] [phone] Karen Guthrie MD 230 [place] [address] LUQ pain (Primary Dx); Epigastric [...] Description 01/21/2025 10:00 AM EDT Office Visit [facility] OPTOMETRY [address] [place], [place] [phone] RobertYocasta king, OD 230 [place] [address] Scheduled Orders Name Type Priority Associated Diagnoses Orde r Schedule CT Abdomen Pelvis w/ Contrast Imaging STAT LUQ pain Epigastric pain Expected: 01/02/2023, Expires: 01/03/2024 documented as of this encounter Visit Diagnoses Diagnosis LUQ pain- Primary Abdominal pain, left upper quadrant Epigastric pain Abdominal pain, epigastric documented in this encounter Care Teams Junior Brand Manager Relationship Specialty Start Date End Date Karen Guthrie MD 230 [place] [address] PCP - General Family Medicine 07/15/22 documented as of this encounter
--- OUTSIDE RECORDS SUMMARY | 2024-12-23 12:04 | XMS_ITS | Encounter Summary ---
Author Organization [employer] Address [address] [facility] [address] 7[address] [place] [address] Care Team Providers Care Pharmacy Picking Technician Name Role Phone Karen Guthrie MD Primary Care Provider [phone] Reason for Visit * Reason Onset Date Comments Med Refill 04/22/2024 Encounter Details Date Type Department Care Team ([facility] st Contact Info) Description 04/22/2024 Telephone [facility] MEDICINE [address] [place], [place] [phone] Karen Guthrie MD 230 [place] [address] Med Refill Social History Tobacco Use Types [...] EDT Medication was sent to [facility] on 03/10/24 with 3 refills. * Telephone Encounter - Harry Deal - 04/22/2024 9:27 AM EDT TC from pt requesting medication refill. Medications needing refill : Continuous Glucose Sensor (FreeStyle Khalif 2 Sensor) misc To be sent to: [facility] documented in this encounter Plan of Treatment Upcoming Encounters Date Type Department Care Team (Late st Contact Info) Description 01/21/2025 10:00 AM EDT Office Visit [facility] OPTOMETRY [address] [place] [address] Yocasta Jones, OD 230 [place] [address] documented as of this encounter Visit Diagnoses Not on filedocumented in this encounter Additional Health Concerns Assessment Noted Time PHQ-9 Depression Total Score: 14 024 1:04 PM EDT documented as of this encounter Care Teams Pharmacy Picking Technician Relationship Specialty Start Date End Date Karen Guthrie MD 230 [place] [address] PCP - General Family Medicine 07/15/22 documented as of this encounter
== END 2024-12-23 10:33 | disposition home or self-care (01) ==
LOC: HO.MRI 10:32
PROVIDERS: PCP General Practice; Visit Provider Advanced Practice Midwife
DX: N64.52 Nipple discharge (principal)
CPT/HCPCS: 77049; A9585

== ENCOUNTER → 2024-12-23 10:54 | Outpatient (BNV) | payer OTHER, SELFPAY | PROVIDERS: PCP General Practice; Visit Provider Internal Medicine | DX: N64.89 Other specified disorders of breast (principal) | CPT/HCPCS: 77049 ==

== ENCOUNTER 2025-01-13 09:23 | Outpatient (AMB) | payer OTHER, SELFPAY ==
--- NOTE | 2025-01-13 07:33 | A.OFFVIS_ITS ---
Vital Signs 01/13/25 09:28 Height 5 ft 6 in Weight 145 lb 8.081 oz BMI 23.5 BP 124/76 Blood Pressure Location Rt brachial Position Sitting Pulse 80 Pulse Source Pulse Oximeter Pulse Oximetry (%) 98 Oxygen Delivery Method Room Air Intake Visit Reasons: T2DM Intake Note: Patient presents today for a follow-up on Type 2 Diabetes Mellitus: Last Diabetic Eye exam: Has a coming up appt on [facility]2025[facility] Last Podiatry Exam: Does not see a Telephone Order Dispatcher Most recent HbA1c: 9.2%, 01/13/2025 Random Glucose- 200 mg/dL, Today Hand Shaper Required: Yes Hand Shaper Language: Furniture Removalist Services: Hand Shaper Offered & Declined Information Interpreted: non-clinical & clinical Accompanied by: Self / Same As Patient Allergies Penicillins [PENICILLINS] Allergy (Intermediate, Verified 12/07/24 08:49) ITCH/RASH sulfamethoxazole [From Bactrim] Allergy (Intermediate, Verified 12/07/24 08:49) RASH sumatriptan Allergy (Intermediate, Verified 12/07/24 08:49) rash trimethoprim [From Bactrim] Allergy (Intermediate, Verified 12/07/24 08:49) RASH pepperoni Allergy (Intermediate, Uncoded 12/07/24 08:49) rash HPI Comments Details: 69 YO F who is seen in follow up for T2DM. She was last seen in Endocrine Clinic 09/30/24 at which time jardiance was added. Hemoglobin A1c 10/01/24:9.7% 06/16/2024 9.7% , 9.8% on 03/03/24 same as 10/30/23 and up from previous of mid 7% in 2022. She recently had surgery for right carpal tunnel Initially diagnosed with T2DM in >10 yrs. Previous medications: Trulicity and regular strength metformin GI intolerability, declined trial on extended release metformin Was initially started on treatment with metformin. Trulicity: diarrhea and bloating. Tried freestyle 3: She felt technology was too complicated. melinda Sultanaba 42 units NovoLog 8 units tid Freestyle Khalif average 210 with the highest readings being from 12-6 p.m. Denies hypoglycemia Family history of type 2 diabetes +Retinopathy: Has eyes checked yearly, last eye exam had appt 09/2023 has appt 01/16 +neuropathy: Numbness and tingling, no cramping in the lower extremity does not see podiatry but has in the past and had foot surgery. some pain related to foot surgery +nephropathy, on losartan Has HLD, on statin. Most recent LDL 08/2023 46 Denies CAD. Denies hypoglycemia Family history of type 2 diabetes +Retinopathy: Has eyes checked yearly, last eye exam has appt 09/2023 has appt 10/19 +neuropathy: Numbness and tingling, no cramping in the lower extremity does not see podiatry but has in the past and had foot surgery. some pain related to foot surgery +nephropathy, on losartan Has HLD, on statin. Most recent LDL 08/2023 46 Denies CAD. Followed by GI now for fatty liver [facility] screen Fibrosis-4 (Fib-4) Index for liver fibrosis (calculated on lab work done: 11/2023 ) 1.08 points Advanced fibrosis excluded Approximate Fibrosis stage Caleb [0-1] *Use with caution in patients <35 or >65 years old, as the score has been shown to be less reliable in these patients. Prior Imaging Ultrasound: LIVER: Hepatomegaly with right hepatic lobe measuring 17.8 cm. Left hepatic lobe measures 14.1 cm. Increased hepatic parenchymal heterogeneity and echogenicity could be associated with hepatocellular disease/hepatic steatosis and severely limits visualization. Correlation with liver function tests and clinical exam recommended to determine further management. ] Date of Service: 07/07/24 Procedure(s): US abdomen aguilar w elastography Accession Number(s): [id number] cc: Miguel Guthrie Sheila J COMPUTER REPAIRER~ EXAMINATION: US ABDOMEN LIMITED WITH LIVER ELASTOGRAPHY CLINICAL INFORMATION: Fatty liver COMPARISON: Ultrasound abdomen 11/24/2023 TECHNIQUE: Real-time imaging of the abdominal viscera. Noninvasive ultrasound liver fibrosis assessment is performed using Corie ElastPQ point quantification shear wave elastography (pSWE) with a 5 MHz transducer. Multiple elastography samples are obtained. FINDINGS: PANCREAS: The visualized pancreatic head and body are normal in appearance. The remainder of the pancreas is obscured from visualization by the overlying bowel gas. LIVER: The liver demonstrates normal size and contour but with increased echogenicity. No focal lesion or intrahepatic biliary duct dilatation. The right lobe measures 16.9 cm in length. The left lobe measures 12.0 cm in length. Shear wave elastography provides a median stiffness of 2.35 m/s (reference: normal median stiffness is 0.81 - 1.22 m/s). The IQR/median stiffness to assess sampling precision is 0.08 (reference: optimal IQR/median stiffness is under 0.3). GALLBLADDER: The gallbladder contains a small sludge ball but is physiologically distended without evidence of stones, polyps, wall thickening or pericholecystic fluid. COMMON BILE DUCT: Normal in caliber measuring 0.3 cm in diameter. RIGHT KIDNEY: No hydronephrosis. There is a mid renal cyst 4 mm echogenic focus with twinkle artifact consistent with a nonobstructing stone. No focal parenchymal lesions. The kidney measures 13 cm in maximum dimension. FREE FLUID: None seen. US/US abdomen aguilar w elastography IMPRESSION: 1. Echogenic liver consistent with hepatic steatosis 2. Elastography: Liver elastography measurements are consistent with a high risk for clinically significant liver fibrosis (METAVIR Stage F3-F4). Saw nutitritionist at [facility] in the past. [facility] Medical History Fatty liver Nephropathy Pre-ulcerative corn or callous Abnormal colonoscopy Colon adenomas Nausea & vomiting Irritable bowel syndrome with constipation History of hyperopia Gastroenteritis Memory impairment Hyperlipidemia Hypertension Myalgia and myositis Urinary incontinence Diabetes mellitus Depression Anxiety Insomnia History of lipoma Surgical History History of carpal tunnel surgery Hx of cataract extraction Hx of right breast biopsy Hx of colonoscopy History of esophagogastroduodenoscopy (EGD) Hx of foot surgery History of back surgery Hx of total hysterectomy Family History Mother Diabetes Father Prostate cancer Social History (Reviewed 12/07/24 @ 09:24 by GIAN Gottlieb Household Members: None Household Members Other:: none Housing: Apartment Do you presently have visiting nurse or other home services: Yes (FURNITURE PAINTER and VNA) Alcohol intake: never Patient Tobacco Use Status: Never used Tobacco service: No Current occupational status: disabled Sexual orientation: Straight/Heterosexual Physical Exam Vital Signs: Last Vital Signs Pulse 80 01/13/25 09:28 BP 124/76 01/13/25 09:28 Pulse Ox 98 01/13/25 09:28 Oxygen Delivery Method Room Air 01/13/25 09:28 BMI result Body Mass Index 23.5 Const Other: Absence of Cushingoid features. Absence of acromegalic features. Neck exam reveals nl size thyroid about 15 gms. No thyroid nodules palpable. Heart S1 S2, Reg R/R. No M/R G. Skin exam reveals absence of vitiligo or acanthosis nigricans. No edema Visual exam of foot performed. No ulcerations or open lesions. No inter digit maceration or fissuring. No onychomycosis, has callus bottom of right foot Sensation intact to monofilament exam. Vibratory sensation is normal with 128 Hz tuning fork. Results AMB Hemoglobin A1c AMB Hemoglobin A1c 9.2 % Last Edit by TY Tafoya on 01/13/25 09:42 Results Reviewed Results Reviewed: Laboratory Last Values Glucose (Clinic) 200 mg/dL (60-115) H 01/13/25 09:33 Hgb A1c (Clinic) 9.2 % (4.0-6.0) H 01/13/25 09:36 Assessment & Plan Assessment & Plan (1) Diabetes mellitus: Code(s): E11.9 - Type 2 diabetes mellitus without complications Category: Medical Plan: Type 2 diabetic on MDI with a intolerance to GLP 1 agonist with neuropathy, retinopathy and nephropathy with the an A1c of 9.2 %. Glucose sensor does show that she is improving. Would recommend changing from freestyle 2 to a 3+ using a reader. She has failure to achieve A1c in his on multiple daily dosing of insulin which would be safer to have constant glucose display. Increase Lantus to 52 units NovoLog Breakfast 20 units Lunch 18 units Supper 18 units will refer to Podiatry as she has a callus that needs to be shaved down. The patient had an opportunity to ask questions regarding treatment plan. The patient expressed understanding and agreement with the above treatment plan. The patient is aware they should contact our office by phone for worsening glucose readings or for any low blood sugars which may warrant a change in diabetes medication. Compliance is encouraged with medications and any followup testing/consults which may have been ordered. Orders: Orders AMB Hemoglobin A1c Today E11.9 - Type 2 diabetes mellitus without complications Referrals Podiatry Referral E11.9 - Type 2 diabetes mellitus without complications Medications: Changed From insulin aspart U-100 (Novolog FlexPen U-100 Insulin aspart) 80-150 15units 151-200 16units 201-250 17units 251-300 18units over 300 19 units subcutaneously 3 times a day with meals 30 days 6 mL 11RF E11.9 - Type 2 diabetes mellitus without complications To insulin aspart U-100 (Novolog FlexPen U-100 Insulin aspart) 20 units breakfast, 18 units lunch and supper 30 days 6 mL 11RF E11.9 - Type 2 diabetes mellitus without complications From insulin degludec (Tresiba FlexTouch U-200 insulin) 80 units subcut To insulin degludec (Tresiba FlexTouch U-200 insulin) 52 units (0.26 mL) subcut DAILY 30 days 9 mL 11RF Patient Instructions: Check your feet daily looking for any signs of infection, drainage, redness, ulceration and seek medical attention if this occurs. Break in shoes gradually and do not wear open-toed shoes or walk stocking footed or barefooted. The patient was counseled to achieve a target A1C of 7% (154 avg). Fasting blood sugars should be 90-130 in the morning and less than 180 two hours after meals. Reviewed the relationship between poor diabetic control and the development of complications. Coding Level of Care Code Est Pt Level 4 (46846) Complex EM visit Add On G2211 Diagnoses Diabetes mellitus E11.9 Time Spent (min) 30 Comment Time spent reviewing labs/provider notes, face to face, chart doc
[2025-01-13 09:28] VITALS: BP 124/76; PULSE 80; O2SAT 98; BMI 23.5
[2025-01-13 09:37] LABS: Glucose, Whole Blood 200 mg/dL (60-115)
--- OUTSIDE RECORDS SUMMARY | 2025-01-13 09:39 | XMS_ITS | Encounter Summary ---
Author Organization [facility] Address 75 [facility] 7t [place] [address] Care Team Providers Care Beauty School Instructor Name Role Phone Quang Vasques MD Primary Care Provider Karen Kang MD Primary Care Provider [phone] Encounter Details Date Type Department Care Team (Latest Contact Info) Description 09/04/2018 Abstract [facility] CONVERSIONS Dental, Provider, DDS Social History [...] Description 01/21/2025 10:00 AM EDT Office Visit [facility] OPTOMETRY [address] [place] [address] Yocasta Jones, OD 230 [place] [address] documented as of this encounter Visit Diagnoses Not on filedocumented in this encounter Care Teams Beauty School Instructor Relationship Specialty Start Date End Date Quang Vasques MD PCP - General Family Medicine 02/15/20 07/14/22 Karen Guthrie MD [address] [place] [address] PCP - General Family Medicine 07/15/22 documented as of this encounter
--- OUTSIDE RECORDS SUMMARY | 2025-01-13 09:39 | XMS_ITS | Encounter Summary ---
Author Organization [employer] Address [address] [facility] [address] [place] [address] Care Team Providers Care Back Hanger Name Role Phone Karen Guthrie MD Primary Care Provider [phone] Reason for Visit * Reason Comments Med Refill Encounter Details Date Type Department Care Team ([facility] Contact Info) Description 01/31/2024 Refill [facility] MEDICINE 230 [place], [place] [phone] Karen Guthrie MD 230 [place], [place] [phone] Vitamin D deficiency Social History Tobacco Use [...] Office Visit [facility] OPTOMETRY [address] [place] [address] Robert, Yocasta, OD 230 [place] [address] documented as of this encounter Visit Diagnoses Diagnosis Vitamin D deficiency documented in this encounter Additional Health Concerns Assessment Noted Time PHQ-9 Depression Total Score: 14 024 1:04 PM EDT documented as of this encounter Care Teams Back Hanger Relationship Specialty Start Date End Date Karen Guthrie MD [address] [place] [address] PCP - General Family Medicine 07/15/22 documented as of this encounter
--- OUTSIDE RECORDS SUMMARY | 2025-01-13 09:39 | XMS_ITS | Encounter Summary ---
Author Organization [employer] Address [address] [facility] [address] [place] [address] Care Team Providers Care Business Office Specialist Name Role Phone Karen Guthrie MD Primary Care Provider [phone] Encounter Details Date Type Department Care Team (Late Contact Info) Description 12/16/2022 Orders Only [facility] MEDICINE [address] [place] [address] Karen Guthrie MD [address] [place] [address] Epigastric pain (Primary Dx) Social History Tobacco [...] 01/21/2025 10:00 AM EDT Office Visit [facility] OPTOMETRY [address] [place] [address] Yocasta Jones OD 230 [facility] [place] [address] documented as of this encounter Procedures Procedure Name Priority Date/Time Associated Diagnosis Comments GLUCOSE, WHOLE BLOOD Routine 01/01/2023 10:57 AM EDT Epigastric pain GLUCOSE, WHOLE BLOOD Routine 01/01/2023 10:32 AM EDT Epigastric pain documented in this encounter Results * Glucose, Whole Blood (01/01/2023 10:57 AM EDT) Glucose, Whole Blood 95 60 - 115 mg/dL [facility] Comment:METER #: [id number] Testing performed in the Endocrinology Department [address] , [address], [facility]. 01/01/2023 10:5 7 AM EDT 01/01/2023 11:05 AM EDT [facility] External Provider LAB BLO OD ORDERABLES Final Result Performing Organization Address [facility]/ZIP Co de Phone Number [facility] [address] [place] [phone] * Glucose, Whole Blood (01/01/2023 10:32 AM EDT) Glucose, Whole Blood 60 60 - 115 mg/dL [facility] Comment:METER #: [id number] performed in the Endocrinology Department [address] , [address], [facility]. 01/01/2023 10:3 2 AM EDT 01/01/2023 10:38 AM EDT [facility] External Provider LAB BLO OD ORDERABLES Final Result Performing Organization Address [facility] Co de Phone Number [facility] [address] [place] [phone] documented in this encounter Visit Diagnoses Diagnosis Epigastric pain- Primary Abdominal pain, epigastric documented in this encounter Care Teams Business Office Specialist Relationship Specialty Start Date End Date Karen Guthrie MD 230 [place] [address] PCP - General Family Medicine 07/15/22 documented as of this encounter
--- OUTSIDE RECORDS SUMMARY | 2025-01-13 09:39 | XMS_ITS | Encounter Summary ---
Author Organization [employer] Address [address] [facility] 7t [place] [address] Care Team Providers Care Entrepreneurship Program Director Name Role Phone Karen Guthrie MD Primary Care Provider [phone] Reason for Referral * Imaging (STAT) - Closed Specialty Diagnoses / Procedures Referred By Contac t Referred To Contact Diagnoses LUQ pain Epigastric pain Procedures CT Abdomen Pelvis w/ Contrast Karen Guthrie MD [address] [place] [address] Phone: tel: fax: [facility] [address] [place] [address] Phone: tel: fax: Referral ID Status Reason Start Date Expiration Date Visits Re quested Visits Authorized [id number] Closed 01/02/2023 01/02/2024 1 1 Encounter Details Date Type Department Care Team (Late st Contact Info) Description 01/02/2023 Orders Only [facility] MEDICINE 230 [place], [place] [phone] Karen Guthrie MD [address] [place], [place] [phone] LUQ pain (Primary Dx); Epigastric pain Social [...] 10:00 AM EDT Office Visit [facility] OPTOMETRY [address] [place], [place] [phone] RobertYocasta king, OD 230 [place] [address] Scheduled Orders Name Type Priority Associated Diagnoses Orde r Schedule CT Abdomen Pelvis w/ Contrast Imaging STAT LUQ pain Epigastric pain Expected: 01/02/2023, Expires: 01/03/2024 documented as of this encounter Visit Diagnoses Diagnosis LUQ pain- Primary Abdominal pain, left upper quadrant Epigastric pain Abdominal pain, epigastric documented in this encounter Care Teams Entrepreneurship Program Director Relationship Specialty Start Date End Date Karen Guthrie MD [address] [place] [address] PCP - General Family Medicine 07/15/22 documented as of this encounter
--- OUTSIDE RECORDS SUMMARY | 2025-01-13 09:39 | XMS_ITS | Encounter Summary ---
Author Organization [employer] Address [address] [facility] [address] [place] [address] Care Team Providers Care Radio Presenter Name Role Phone Karen Guthrie MD Primary Care Provider [phone] Encounter Details Date Type Department Care Team (Late Contact Info) Description 01/10/2023 Orders Only [facility] MEDICINE [address] [place] [address] Karen Guthrie MD [address] [place] [address] Vomiting, unspecified vomiting type, unspecified whether nausea [...] 01/21/2025 10:00 AM EDT Office Visit [facility] OPTOMETRY [address] [place], [place] [phone] Robert, Yocasta, OD [address] [place] [address] Scheduled Orders Name Type Priority Associated Diagnoses Orde r Schedule Basic Metabolic Panel Lab Routine Vomiting, unspecified vomiting type, unspecified whether nausea present Expected: 01/10/2023 (Approximate), Expires: 01/11/2024 documented as of this encounter Visit Diagnoses Diagnosis Vomiting, unspecified vomiting type, unspecified whether nausea present- Primary documented in this encounter Care Teams Radio Presenter Relationship Specialty Start Date End Date Karen Guthrie MD [address] [place] [id number] PCP - General Family Medicine 07/15/22 documented as of this encounter
--- OUTSIDE RECORDS SUMMARY | 2025-01-13 09:39 | XMS_ITS | Encounter Summary ---
Author Organization [employer] Address [address] [facility] [address] [place] [address] Care Team Providers Care Surveillance Inspector Name Role Phone Karen Guthrie MD Primary Care Provider [phone] Reason for Visit * Reason Onset Date Comments Med Refill 04/22/2024 Encounter Details Date Type Department Care Team ([facility] st Contact Info) Description 04/22/2024 Telephone [facility] MEDICINE [address] [place], [place] [phone] Karen Guthrie MD [address] [place], [place] [phone] Med Refill Social History Tobacco Use Types [...] 9:39 AM EDT Medication was sent to [facility] on 03/10/24 with 3 refills. * Telephone Encounter - Harry Deal - 04/22/2024 9:27 AM EDT TC from pt requesting medication refill. Medications needing refill : Continuous Glucose Sensor (FreeStyle Khalif 2 Sensor) [facility] To be sent to: [facility] documented in this encounter Plan of Treatment Upcoming Encounters Date Type Department Care Team (Late st Contact Info) Description 01/21/2025 10:00 AM EDT Office Visit [facility] OPTOMETRY [address] [place] [address] Robert, Yocasta, OD [address] [place] [address] documented as of this encounter Visit Diagnoses Not on filedocumented in this encounter Additional Health Concerns Assessment Noted Time PHQ-9 Depression Total Score: 14 024 1:04 PM EDT documented as of this encounter Care Teams Surveillance Inspector Relationship Specialty Start Date End Date Karen Guthrie MD [address] [place] [address] PCP - General Family Medicine 07/15/22 documented as of this encounter
--- OUTSIDE RECORDS SUMMARY | 2025-01-13 09:39 | XMS_ITS | Encounter Summary ---
Author Organization [employer] Address [address] [facility] 7t [place] [address] Care Team Providers Care It Support Consultant Name Role Phone Karen Guthrie MD Primary Care Provider Encounter Details Date Type Department Care Team (Late Contact Info) Description 01/31/2023 Orders Only [facility] MEDICINE [address] [place] [address] Karen Guthrie MD [address] [place] [address] Constipation, unspecified constipation type (Primary Dx) Social [...] Description 01/21/2025 10:00 AM EDT Office Visit [facility] OPTOMETRY [address] [place] [address] Robert, Yocasta, OD [address] [place] [address] documented as of this encounter Visit Diagnoses Diagnosis Constipation, unspecified constipation type- Primary documented in this encounter Care Teams It Support Consultant Relationship Specialty Start Date End Date Karen Guthrie MD [address] [place] [address] PCP - General Family Medicine 07/15/22 documented as of this encounter
--- OUTSIDE RECORDS SUMMARY | 2025-01-13 09:39 | XMS_ITS | Encounter Summary ---
Author Organization [employer] Address [address] [facility] [address] [place] [address] Care Team Providers Care Poultry Hatchery Laborer Name Role Phone Karen Guthrie MD Primary Care Provider [phone] Encounter Details Date Type Department Care Team ([facility] Contact Info) Description 04/18/2023 Orders Only [facility] [address] [place] [address] Karen Guthrie MD [address] [place] [address] Social History Tobacco Use Types Packs/Day Years [...] Description 01/21/2025 10:00 AM EDT Office Visit [facility] OPTOMETRY [address] [place], [place] [phone] RobertYocasta, OD [address] [place] [address] documented as of this encounter Visit Diagnoses Not on filedocumented in this encounter Care Teams Poultry Hatchery Laborer Relationship Specialty Start Date End Date Karen Guthrie MD [address] [place] [address] PCP - General Family Medicine 07/15/22 documented as of this encounter
--- OUTSIDE RECORDS SUMMARY | 2025-01-13 09:39 | XMS_ITS | Encounter Summary ---
Author Organization [employer] Address [address] [facility] [address] [place] [address] Care Team Providers Care Recreational Vehicle Resort Manager Name Role Phone Karen Guthrie MD Primary Care Provider [phone] Encounter Details Date Type Department Care Team ([facility] Contact Info) Description 09/23/2024 Orders Only [facility] MEDICINE [address] [place] [address] Karen Guthrie MD [address] [place] [address] Social History Tobacco Use Types Packs/Day Years [...] 10:00 AM EDT Office Visit [facility] OPTOMETRY [address] [place], [place] [phone] Robert, Yocasta, OD [address] [place] [address] documented as of this encounter Visit Diagnoses Not on filedocumented in this encounter Additional Health Concerns Assessment Noted Time PHQ-9 Depression Total Score: 14 024 1:04 PM EDT documented as of this encounter Care Teams Recreational Vehicle Resort Manager Relationship Specialty Start Date End Date Karen Guthrie MD [address] [place] [address] PCP - General Family Medicine 07/15/22 documented as of this encounter
--- OUTSIDE RECORDS SUMMARY | 2025-01-13 09:39 | XMS_ITS | Encounter Summary ---
Author Organization [employer] Address [address] [facility] [address] [place] [address] Care Team Providers Care Mortising Machine Operator Name Role Phone Karen Guthrie MD Primary Care Provider Reason for Visit * Reason Comments Med Refill Encounter Details Date Type Department Care Team ([facility] st Contact Info) Description 10/01/2023 Refill [facility] MEDICINE [address] [place], [place] [phone] Karen Guthrie MD [address] [place], [place] [phone] Type 2 diabetes mellitus with other specified complication, unspecified whether local intermodal truck driver insulin use ([facility]) Social History Tobacco Use Types [...] Description 01/21/2025 10:00 AM EDT Office Visit [facility] OPTOMETRY [address] [place], [place] [phone] Yocasta Jones, OD [address] [place] [address] documented as of this encounter Visit Diagnoses Diagnosis Type 2 diabetes mellitus with other specified complication, unspecified whether skilled nursing insulin use ([facility]) documented in this encounter Care Teams Mortising Machine Operator Relationship Specialty Start Date End Date Karen Guthrie MD [address] [place] [address] PCP - General Family Medicine 07/15/22 documented as of this encounter
--- OUTSIDE RECORDS SUMMARY | 2025-01-13 09:39 | XMS_ITS | Data Portability ---
Author Organization [employer], [place] [facility] - [facility] Address [address] [place] [address] Care Team Providers Care Shipmaster Name Role Phone [facility] Referring Provider YASEMIN LAMBERT Primary Care Provider [phone] Assessment Encounter Date Assessment Date Assessment LastModified by Organization Details LastModified Time 10/18/2022 10/18/2022 I provided real -time medical direction via phone for this encounter, and was available for additional phone based assistance as needed. I have reviewed and agree with the Assessment and Plan as documented by the Heel Boom Operator. Patient given the opportunity to ask questions. [email or web address] Not available 10/18/2022 23:13:30 12/11/2022 12/11/2022 I provided real -time medical direction via phone for this encounter, and was available for additional phone based assistance as needed. I have reviewed and agree with the Assessment and Plan as documented by the Heel Boom Operator. Patient given the opportunity to ask questions. Advised if develops CP/severe SOB/ increased abd pain/uncontrolle d n/v/d or black/bloody emesis or stool/ AMS/ syncope/ hi fever to call 911- verbalized understanding of instructions [email or web address] Not available 12/11/2022 16:54:21 05/06/2023 05/06/2023 I provided real -time medical direction via phone for this encounter, and was available for additional phone based assistance as needed. I have reviewed the Assessment and Plan as documented by the Heel Boom Operator. Patient given the opportunity to ask questions. [email or web address] Not available 05/07/2023 10:28:45 Plan of Treatment Reminders Order Date Submit Date Provider Last Modified By Organization Details Last Modified Time Details Appointments None recorded. Lab BMP, serum or plasma 2022 023 [email or web address] 0 [facility], [address] [place] [address], [id number] 3 10:28:26 rapid SARS CoV 2 Ag, QL IA, respiratory specimen 2022 023 [email or web address] 0 [facility], [address] [place] [address], [id number] 3 10:28:26 rapid flu (A+B) 2022 023 [email or web address] 0 [facility], [address] [place] [address], [address] 3 10:28:26 BMP, serum or plasma 2022 023 [email or web address] 0 [facility], [address] [place] [address], [address] [place] [address] 3 17:09:27 urinalysis, dipstick 2022 023 [email or web address] 0 [facility], [address] [place] [address], [address] 3 23:34:46 BMP, serum or plasma 2022 023 [email or web address] 0 [facility], [address] [place] [address], [address] 3 23:34:46 Referral None recorded. Procedures None recorded. Surgeries None recorded. Imaging None recorded. Medication Orders sodium chloride 0.9 % intravenous solution 2022 023 [email or web address] 0 [facility], [address] [place] [address], [id number], 3 10:28:26 ondansetron HCl (PF) 4 mg/2 mL injection solution 2022 023 [email or web address] 0 [facility], [address] [place] [address], [id number], 3 10:28:26 ondansetron 4 mg disintegrat ing tablet 2022 023 [facility], [address] [place] [address], [id number], 3 17:01:14 sodium chloride 0.9 % intravenous solution 2022 023 [email or web address] 0 [facility], [address] [place] [address], [id number], 3 17:09:27 ondansetron HCl (PF) 4 mg/2 mL injection solution 2022 023 [email or web address] 0 [facility], [address] [place], [place], [id number], 3 17:09:27 sodium chloride 0.9 % intravenous solution 2022 023 [email or web address] 0 Not available 23:34:46 Patient TargetsNo targets recorded. Patient InstructionsNo instructions recorded. Reason for Referral None Reported. Results Created Date Observation Date Name Description Value Unit Range Abnormal Flag Note LastModifiedBy Organization Detail LastModifiedTime 10/18/1910/18/2022 urina lysis , dipst ick Leukocytes neg Not Available [facility] [address] [place] [address], [id number] 10/18/2022 23:20:01 10/18/19 23 10/18/2022 urina lysis , dipst ick Nitrite negati ve Not Available Main - [facility] [address], [address] 10/18/2022 23:20:01 10/18/19 23 10/18/2022 urina lysis , dipst ick Urobilinogen neg Not Available [facility] [address] [place] [address], [address] 10/18/2022 23:20:01 10/18/19 23 10/18/2022 urina lysis , dipst ick Protein neg Not Available Main - [facility] [address], [address] 10/18/2022 23:20:01 10/18/19 23 10/18/2022 urina lysis , dipst ick pH 6.5 Not Available [facility] - [facility] [address], [address] 10/18/2022 23:20:01 10/18/19 23 10/18/2022 urina lysis , dipst ick Blood neg Not Available [facility] - [facility] [address], [address] [place] [address] 10/18/2022 23:20:01 10/18/19 23 10/18/2022 urina lysis , dipst ick Specific Swiss 1;025 Not Available [facility] [address] [place] [address], [address] [place] [address] 10/18/2022 23:20:01 10/18/19 23 10/18/2022 urina lysis , dipst ick Ketone trace Not Available [facility] - [facility] michael [address] [place] [address], [address] [place] [address] 10/18/2022 23:20:01 10/18/19 23 10/18/2022 urina lysis , dipst ick Bilirubin trace Not Available Main - I [address], [address] [place] [address] 10/18/2022 23:20:01 10/18/19 23 10/18/2022 urina lysis , dipst ick Glucose negati ve Not Available [facility] [address] [place] [address], [address] [place] [address] 10/18/2022 23:20:01 10/18/19 23 10/18/2022 urina lysis , dipst ick Appearance clear Not Available [facility] [address] [place] [address], [address] [place] [address] 10/18/2022 23:20:01 10/18/19 23 10/18/2022 urina lysis , dipst ick Color yelllo w Not Available [facility] [address] [place] [address], [address] [place] [address] 10/18/2022 23:20:01 10/18/19 23 10/18/2022 BMP, serum or plasm a BUN 8 Not Available [facility] - [facility] [address], [address] [place] [address] 10/18/2022 23:20:03 10/18/19 23 10/18/2022 BMP, serum or plasm a Ca I az = 1.21 Not Available [facility] [address] [place] [address], [address] [place] [address] 10/18/2022 23:20:03 10/18/19 23 10/18/2022 BMP, serum or plasm a CI- 102 Not Available Main - [facility] [address], [address] [place] [address] 10/18/2022 23:20:03 10/18/19 23 10/18/2022 BMP, serum or plasm a CRE 0.5 Not Available [facility] - [facility] [address], [address] [place] [address] 10/18/2022 23:20:03 10/18/19 23 10/18/2022 BMP, serum or plasm a GLU 100 Not Available [facility] - [facility] [address], [address] [place] [address] 10/18/2022 23:20:03 10/18/19 23 10/18/2022 BMP, serum or plasm a K+ 4 Not Available [facility] - [facility] [address], [address] [place] [address] 10/18/2022 23:20:03 10/18/19 23 10/18/2022 BMP, serum or plasm a Na+ [address] [facility] - [facility] [address], [address] [place] [address] 10/18/2022 23:20:03 10/18/19 23 10/18/2022 BMP, serum or plasm a tCO2 25 Not Available [facility] - [facility] [address], [address] [place] [address] 10/18/2022 23:20:03 12/12/19 23 12/11/2022 BMP, serum or plasm a BUN [address] [facility] - [facility] [address], [address] [place] [address] 12/11/2022 17:06:59 12/12/19 23 12/11/2022 BMP, serum or plasm a Ca I az 1.[address] [facility] - [address], [address] [place] [address] 12/11/2022 17:06:59 12/12/19 23 12/11/2022 BMP, serum or plasm a CI- 106 Not Available Main - [facility] [address], [address] [place] [address] 12/11/2022 17:06:59 12/12/19 23 12/11/2022 BMP, serum or plasm a CRE 0.[address] [facility] - [facility] [address], [address] [place] [address] 12/11/2022 17:06:59 12/12/19 23 12/11/2022 BMP, serum or plasm a GLU 146 Not Available Main - [facility] [address], [address] 12/11/2022 17:06:59 12/12/19 23 12/11/2022 BMP, serum or plasm a K+ 3.9 Not Available Main - [facility] [address], [address] [place] [address] 12/11/2022 17:06:59 12/12/19 23 12/11/2022 BMP, serum or plasm a Na+ 140 Not Available [facility] - [facility] [address], [address] [place] [address] 12/11/2022 17:06:59 12/12/19 23 12/11/2022 BMP, serum or plasm a tCO2 19 Not Available [facility] - [facility] [address], [address] [place] [address] 12/11/2022 17:06:59 05/06/20 23 05/06/2023 rapid flu (A+B) Flu negati ve Not Available [facility] [address] [place] [address], [address] [place] [address] 05/06/2023 12:56:53 05/06/2005/06/2023 rapid SARS CoV 2 Ag, QL IA, respi rator y speci men rapid SARS CoV 2 Ag, QL IA, respiratory specimen negati ve Not Available [facility] [address] [place] [address], [address] [place] [address] 05/06/2023 12:56:51 05/07/2005/07/2023 BMP, serum or plasm a BUN 14 Not Available Main - [facility] [address], [address] 05/06/2023 12:56:14 05/07/2005/07/2023 BMP, serum or plasm a Ca I AZ 5(nl) Not Available [facility] [address] [place] [address], [address] 05/06/2023 12:56:14 05/07/2005/07/2023 BMP, serum or plasm a CI- 103 Not Available Main - [facility] [address], [address] 05/06/2023 12:56:14 05/07/20 23 05/07/2023 BMP, serum or plasm a CRE 0.54 Not Available Main - [facility] [address], [address] 05/06/2023 12:56:14 05/07/20 23 05/07/2023 BMP, serum or plasm a GLU 163 Not Available [facility] - [facility] [address], [address] 05/06/2023 12:56:14 05/07/20 23 05/07/2023 BMP, serum or plasm a K+ 4.5 Not Available [facility] - [facility] [address], [address] 05/06/2023 12:56:14 05/07/2005/07/2023 BMP, serum or plasm a Na+ 139 Not Available [facility] - [facility] [address], [address] [place] [address] 05/06/2023 12:56:14 05/07/2005/07/2023 BMP, serum or plasm a tCO2 23 Not Available [facility] - [facility] [address], [address] 05/06/2023 12:56:14 Result Notes None recorded. Medical Equipment None Reported. Allergies Allergen ID Allergen Name Allergen Category Reaction Reaction Severity Criticality Documentation Date Start Date Code Code System Note Provider Name and Address Organization Details Recorded Time 1956 Product containin g angiotens in-conver ting enzyme inhibitor (product) medicatio n cough Not available Not available 10/18/2022 64492 009 SNOMED Ale Mendoza MD [address] [place] [address],[address], [place], [address], [facility] 3 22:57:07 1958 Bactrim medicatio n Not available Not available Not available 10/18/2022 91021 9 RxNorm Ale Mendoza MD [address] [place] [address],[address], [place], [address], [facility] 3 22:57:21 1959 Product containin g penicilli n (product) medicatio n Not available Not available Not available 10/18/2022 88537 8001 SNOMED Not Available [facility] - production [...] Available No t Available [employer] [address] [place] USE TO TEST BLOOD SUGAR THREE TIMES DAILY AND NEEDED active Not Available Not Available No t Available Vitals Date Recorded Body weight Respiratory rate Heart rate Body height Body temperature Oxygen saturation Oxygen saturation in Arterial blood by Pulse oximetry Systolic blood pressure Diastolic blood pressure Provider Name and Address Organization Details Last Updated DateTime 3 96406.6 4 g 16 /min 94 /min 162.56 [...] mm[Hg] 148 mm[Hg] 82 mm[Hg] Not Available [employer] - production 3 12:02:20 Date Recorded Body weight Provider Name an d Address Organization Details Last Updated DateTime 10/18/2022 39015.22 g Kristy Acosta [address] [place] [address],[address], [place], [address], [place] [facility] 10/18/2022 23:07:43 Date Recorded Respiratory rate Body [...] 3 18 /min 98.6 [degF] 100 /min 37834.8 g 98 % 98 % 157.48 cm 98.6 [degF] 55641.8 g 100 /min 18 /min 157.48 cm 98 % 98 % 135 mm[Hg] 87 mm[Hg] 135 mm[Hg] 87 mm[Hg] Not Available [employer] 3 13:15:40 Social History None recorded. Functional [...] Note [id number] [facility] [address] [place] [phone] 10/18/2022 11:17:31 10/21/2022 09:40:55 Gastroenteritis 51691399 K52.9 w/ GERD- advised BRAT/ bland diet- [...] 9573 Ale Mendoza MD Main - [facility] [address] [place] [address] 12/11/2022 11:50:55 12/13/2022 09:41:45 Abdominal pain 84325321 R10.9 w/ n/v/d- advised to hold the [...] lo threshold for going to the ED [id number] Ale Mendoza MD Main - [facility] [address] [place] [phone] 05/06/2023 12:51:33 05/07/2023 11:54:31 Abdominal pain 69340106 R10.9 w/ n/v/d- significan t abd distention and very elevated lactate- although remainder labs nl/ vss - concern for SBO/ risk for perforatio n/ intra-abdo bhanu infection/ early sepsis- advised needs imaging and further emergent eval / treatment in the ED- patient agreeable- report called to [facility]. S medic arrived for EMS so [facility] medic rode in to continue IVF en route to the ER. Health Concerns Section Related Observation LastModified by Organization Detai ls LastModified Time None Recorded Concern Status LastModified by Organization Details LastModified Time None Recorded Advance Directives Directive None Recorded Payers Insurance Date Sequence Insurance Name Policy Number Policy Javier Covered Member ID Javier Member ID Guarantor Name 05/06/2023 1 [facility] - DOS PRIOR TO 2022 - DUAL ELIGIBLE (MEDICARE REPLACEMENT/ADV ANTAGE - HMO) Jacki Baker [id number] Jacki Baker 05/05/2024 1 [facility] - DOS ON OR AFTER 2022 - DUAL ELIGIBLE - [employer] OPT[employer] AND ONE CARE (MEDICARE REPLACEMENT/ADV ANTAGE - HMO) Jacki Baker [id number] Jacki Baker Notes Date Note Type Note [...] ..................... ..................... ..................... ..................... ..................... ..................... ............... Heel Boom Operator Note From Elias Washington: PT c/o n/v/d x2 weeks, states that it? s a ? p robable gastroenteritis episode.? Pt notes 06/03 abd pain. B/s normal pop/click/gurgles. Pt notes [...] and given 15mg Toradol ordered and given Heel Boom Operator Allergies: Aspirin, Omeprazole, Penicillin ..................... ..................... ..................... ..................... ..................... ..................... ............... Disposition: FulfilledSEGMD: Heike has hx recurrent gastroenteritis w/ n/v/d and GERD/HPL/ DM2/HTN/obesity hx/ lung nodules/depression/ PTSD. above. Heike reports 3bm - watery yesterday- none since [...] with these spells. Ale Mendoza MD [address] [facility],[address], [place], [address], [employer] 10/18/2022 23:36:31 12/11/2022 text/html HPI: Call to [...] ..................... ..................... ..................... ..................... ..................... ..................... ............... Heel Boom Operator Note From Steve Lozoya: Pt answers [...] 4mg IV ? ? 2 BMP to [facility] via portal. Pt advised by [facility] to stop taking antibiotics until she can talk to her PCP, eat only BRAT diet (explained) and drink clear liquids. Red flags and pt education discussed. Heel Boom Operator Allergies: Aspirin, Omeprazole, Penicillin, Trimethoprim-Sulfamet hoxazole [...] denies UTi s/s Ale Mendoza MD [address] [facility],[address], [place], [address], [place] MARII DELUCA 12/11/2022 17:10:18 05/06/2023 text/html HPI: Vomiting and wants to make sure she is not dehydrated>has been experiencing symptoms for about 3 days. ..................... ..................... ..................... ..................... ..................... ..................... ............... CRC Nursing Assessment: Comments: Requestor unable to give additional details. ..................... ..................... ..................... ..................... ..................... ..................... ............... Heel Boom Operator Note From Silvano Garcia: Pt reports n/v/d for three days. Pt denies CP, SOB, fevers, chills, hematochezia, hematemesis. Pt is alert, NAD. VSS. Afebrile. Neuro exam and gait normal. Lungs CTA. ABD is distended and tender in epigastric region. + BS x4. No LLE. Rapid covid and flu negative. POC BMP lactate 36.2. [facility] contacted and advised pt be seen in ED. 911 initiated. Normal saline 500 mg IV and Ondansetron 4 mg IVP administered en route to [facility]. [facility] oracle financials developer maintained all pt care until transfer of care to [facility]. [facility] Lab Orders: BMP, serum or plasma: Performed rapid SARS CoV 2 Ag, QL IA, respiratory specimen: Performed rapid flu (A+B): Performed ..................... ..................... ..................... ..................... ..................... ..................... ............... Disposition: Fulfilled Ale Mendoza MD [address] [place] [address],[address], [place], [address], VIVIAN AdsvarkMARII COUGHLIN 05/07/2023 10:32:09 OBGyn Episode No OBEpisode recorded.
--- OUTSIDE RECORDS SUMMARY | 2025-01-13 09:40 | XMS_ITS | Clinical Summary ---
Author Organization [employer] Address [address] [place] [address] Care Team Providers Care Tobacco Cloth Reclaimer Name Role Phone Karen Guthrie MD Primary Care Provider [phone] Allergies Active Allergy Reactions Criticality Noted Date [...] Take 1 mg by mouth at bedtime. 09/10/19 23 Active lamoTRIgine (LaMICtal) 200 MG tablet 09/02/19 23 Active mirtazapine (Remeron) 7.5 MG tablet 08/27/19 23 Active prazosin (Minipress) 5 MG capsule 08/27/19 23 Active risperiDONE (RisperDAL) 2 MG tablet Take 2 mg by mouth at bedtime. 11/22/19 23 Active Continuous Blood Gluc Engine Inspector (RetailMLSStyle Khalif 2 [place]) device USE TO TEST BLOOD SUGAR THREE TIMES DAILY AND NEEDED 1 each 04/18/20 23 Active benztropine (Cogentin) 0.5 MG tablet Take 0.5 mg by mouth at bedtime. 03/15/20 23 Active NovoLOG FLEXPEN 100 UNIT/ML penIndications:Typ e 2 diabetes mellitus with other specified complication, with long-term current use of insulin ([facility]) INJECT 12 UNITS SUBCUTANEOUSLY WITH BREAKFAST, INJECT 10 UNITS WITH LUNCH, AND INJECT 12 UNITS WITH DINNER 15 mL 09/02/19 24 Active bisacodyl (Dulcolax) 10 MG suppository UNWRAP AND INSERT 1 SUPPOSITORY RECTALLY DAILY NEEDED FOR CONSTIPATION 11/05/19 24 Active D3 Super Strength 50 MCG (1999 [place]) capsuleIndications :Vitamin D deficiency TAKE 1 CAPSULE BY MOUTH EVERY MORNING 90 capsule 3 01/27/20 24 Active liver oil-zinc oxide (Desitin) 40 % ointment Apply topically if needed in the morning and at bedtime for irritation. 56 g 03/01/20 24 Active Continuous Glucose Sensor (FreeStyle Khalif 2 Sensor) [facility] [place] BLOOD [place]GAR THREE TIMES DAILY AND NEEDED. CHANGE EVERY 14 DAYS 2 each 3 03/10/20 24 Active Fiber-Lax 625 MG tablet TAKE 1 TABLET BY MOUTH TWICE DAILY IN THE MORNING AND IN THE EVENING 180 tablet 3 04/19/20 [address] [facility] USE DIRECTED TO TEST BLOOD SUGAR 4 TO 6 TIMES A DAY 100 each 11 06/02/20 24 Active omeprazole (PriLOSEC) [address] capsuleIndications :Gastroesophageal reflux disease without esophagitis TAKE 1 CAPSULE BY MOUTH TWICE DAILY IN THE MORNING AND IN THE EVENING BEFORE MEALS 180 capsule 3 06/14/20 24 Active cetirizine (ZyrTEC) 10 MG tablet TAKE 1 TABLET BY MOUTH TWICE DAILY FOR ANGIOEDEMA 180 tablet 3 06/17/20 24 Active atorvastatin (Lipitor) 40 MG tabletIndications: Hyperlipidemia, unspecified hyperlipidemia type Take 1 tablet (40 mg) by mouth at bedtime. 90 tablet 3 07/06/20 24 Active senna (Senokot) 8.6 MG tablet Take 1 tablet (8.6 mg) by mouth Once per day. For constipation 90 tablet 3 07/06/20 24 Active losartan (Cozaar) 50 MG tabletIndications: Essential hypertension TAKE 1 TABLET BY MOUTH EVERY MORNING (HIGH BLOOD PRESSURE) 90 tablet 3 07/12/20 24 Active Jardiance 10 MG 09/22/19 25 Active Tresiba FlexTouch 200 UNIT/ML injection INJECT 85 UNITS SUBCUTANEOUSLY EVERY DAY 18 mL 3 10/20/19 25 Active metFORMIN XR (Glucophage-XR) 500 MG 24 hr tablet 11/03/19 25 Active glucose blood (FREESTYLE LITE) test stripIndications:T ype 2 diabetes mellitus with other specified complication, unspecified whether terminal clerk insulin use ([facility]) TEST BLOOD SUGAR 4 TO 6 TIMES PER DAY 100 strip 11 11/13/19 25 Active insulin pen needle (BD Pen Needle Inocencia U/F) 32G x 4 mm miscIndications:Ty pe 2 diabetes mellitus with other specified complication, unspecified whether fpc insulin use ([facility]) USE DIRECTED TO INJECT DAILY 100 each 5 12/01/19 25 Active Multiple Vitamin (Multivitamin) tablet TAKE 1 TABLET BY MOUTH EVERY MORNING WITH FOOD 90 tablet 3 12/08/19 25 Active Active Problems Problem Noted Date Diagnosed Date [...] supposed to repeat C[place] in [place] at [facility] [place] not get scheduled, [...] ASCVD: The 10-year ASCVD risk score (Colin DK, et al., 2019) is: 12.6% Values used [...] Encounters Date Type Department Care Team Description 01/13/2025 Orders Only GENERIC EXTERNAL DATA DEPARTMENT Provider, Generic External Data 12/29/2024 Telephone [facility] [place] [address] Fabiola Ortiz RN Results 12/29/2024 Orders Only [facility] [address] [facility] [place] [address] Farhat Phillip CNM Bloody discharge from right nipple (Primary Dx) 12/23/2024 Orders Only [facility] [address] [facility] [place] [address] Farhat Phillip CNM 12/07/2024 Orders Only GENERIC EXTERNAL DATA DEPARTMENT Provider, Generic External Data 12/07/2024 Refill [facility] [address] [facility] [place] [address] Karen Guthrie MD 12/02/2024 Telephone [facility] [address] [facility] [place] [address] Karen Guthrie MD Results 12/01/2024 Telephone [facility] [address] [facility] [place] [address] Fabiola Ortiz RN Results 12/01/2024 Orders Only [facility] [place] [address] Farhat Phillip CNM Bloody discharge from right nipple (Primary Dx); Pre-procedure lab exam 11/30/2024 Refill [facility] [address] [place] [address] Karen Guthrie MD Type 2 diabetes mellitus with other specified complication, unspecified whether terminal clerk insulin use (CMS/HCC) 11/11/2024 Refill [facility] [address] [place], [place] [phone] Karen Guthrie MD Type 2 diabetes mellitus with other specified complication, unspecified whether fpc insulin use (CMS/HCC) 11/05/2024 11:00 AM EDT Office Visit [facility] [address] [place] [address] Karen Guthrie MD Essential hypertension (Primary Dx); Type 2 diabetes mellitus with hyperglycemia, with long-term current use of insulin (CMS/[facility]); Dietary counseling; Exercise counseling; Overweight; Recurrent major depressive episodes, moderate (CMS/[facility]); Hyperlipidemia associated with type 2 diabetes mellitus (CMS/HCC) ([facility]) 11/05/2024 Travel 10/29/2024 Patient Outreach [facility] [address] [place] [address] Karen Guthrie MD Pre-visit Planning (SDOH screening negative and tobacco screening negative) 10/20/2024 Refill [facility] [address] [place] [address] Karen Guthrie MD 10/19/2024 Orders Only [facility] [address] [place] [phone] Farhat Phillip CNM Bloody discharge from right nipple (Primary Dx) 10/18/2024 2:00 PM EST Office Visit [facility] [address] [place] [address] Farhat Phillip CNM Bloody discharge from right nipple (Primary Dx) 10/18/2024 Travel from Last 3 Months Immunizations Immunization Administration Dates Next Due Hep B, adult [...] Description 01/21/2025 10:00 AM EDT Office Visit [facility] [address] [place] [address] Robert, Yocasta, OD [address] [place] [address] Health Maintenance Due Date Last Done Comments CT Colonography 1955 Colonoscopy 1955 FIT 1955 Sigmoidoscopy 1955 Eye Exam 1966 RSV Patients and Patients Aged 60 years or older (1 - Risk 60-74 years 1-dose series) 2016 FOBT 04/02/2024 04/02/2023 Diabetes: Urine Protein Screening 09/22/2024 09/22/2023, 03/22/2020 COVID-19 Vaccine ( season) 2024 05/27/2024, 01/08/2022, 06/27/2021, Additional history exists Diabetes: Hemoglobin A1C 02/05/2025 025, 12/19/2023, 09/22/2023, Additional history exists Diagnostic Breast Imaging 06/25/20252024, 12/01/2024, 12/01/2024, Additional history exists Alcohol/Substance Use Screening 10/18/2025 [...] Pneumococcal Vaccine: 50+ Years Completed 04/02/2022, 05/18/2018 Influenza Vaccine Completed 05/27/2024, , 05/28/2022, Additional [...] patient's age to complete this topic Meningococcal B Vaccine Aged Out No l onger eligible based on patient's age to complete [...] Associated Diagnosis Comments GLUCOSE, WHOLE BLOOD Routine 01/13/2025 9:33 AM EDT BI MR BREAST W AND WO CONTRAST BILATERAL Routine 12/23/2024 10:54 AM EDT LIVER FIBROSIS, FIBROTEST ACTITEST PANEL Routine 12/07/2024 [...] with long-term current use of insulin (CMS/HCC) ALBUMIN, RANDOM URINE W/CREATININE Routine 09/22/2023 9:54 AM EST Type 2 diabetes mellitus with other specified complication, unspecified whether terminal clerk insulin use (CMS/HCC) [facility] DNA/COLOGUARD CANCER SCREENING Routine 04/02/2023 from Last 3 Months or Most Recently Relevant to Health Maintenance Results * (ABNORMAL) Glucose, Whole Blood (01/13/2025 9:33 AM EDT) Glucose, Whole Blood 200(H) 60 - 115 mg/dL [facility] Comment:METER #: [id number] Testing performed in the Endocrinology Department [address] , [address], [place]. 01/13/2025 9:33 AM EDT 01/13/2025 9:37 AM EDT us Generic External Data Provider LAB BLOOD ORDERAB LES Final Result [facility] [address] [place] [phone] * BI MR Breast w and w/o Contrast Bilateral (12/23/2024 10:54 AM EDT) Anatomical Region Laterality Modality Breast Bilateral Magnetic Resonan ce 12/23/2024 10:5 4 AM EDT Narrative 12/28/2024 5:47 PM EDT ? [facility] ?[address] ?[place] [address] ? Magnetic Resonance Report ? Signed ? Patient: Baker,Jacki I ?MR#: [id number] ?? [id number] ? : 1955 ?Acct:[id number] ? Age/Sex: 69 / F ?ADM Date: 05/01/25 ? Loc: HO.MRI ? Attending : Farhat Phillip CNM ? Ordering Physician: FARHAT PHILLIP CNM ?? Date of Service: 12/23/24 ?? Procedure(s): MR breast BI wo/w con ?? Accession Number(s): [id number] ? cc: Karen Guthrie; FARHAT PHILLIP CNM ? EXAMINATION: ?? MR BREAST WITHOUT AND WITH CONTRAST, BILATERAL ? CLINICAL INFORMATION: ?? Right breast bloody implants nipple discharge. ? COMPARISON: ?? Priors on PACS including mammogram and ultrasound in December 11, 2024. ? TECHNIQUE: ?? MR imaging of the breast was performed using T1, T2 and fat saturated ?? techniques. Dynamic multiphase imaging was also performed after ?? administration of intravenous gadolinium contrast agent. ?? Computer generated 3-D reconstruction was performed. ? FINDINGS: ?? There is heterogeneous fibroglandular breast tissue with marked ?? background enhancement with bilateral scattered enhancing foci. ? LEFT BREAST: ?? There are bilateral symmetrical enhancing scattered foci. ?? Within the retroareolar region middle depth series 1056 image 79/126 ?? there are a few enhancing foci which question standout above background. ?? No other suspicious enhancing masses or areas of nonmass enhancement. ?? No architectural distortion. ?? No internal mammary or axillary adenopathy. ? RIGHT BREAST: ?? Bilateral symmetric scattered enhancing foci. ?? No suspicious enhancing masses or areas of nonmass enhancement. ?? No architectural distortion. ?? No axillary adenopathy or internal mammary adenopathy. ? Limited views of the chest and abdomen are unremarkable. ? MR/MR breast BI wo/w con ?? IMPRESSION: ?? Right: No MRI evidence of malignancy or abnormality to account for the ?? patient's bloody nipple discharge. Recommend clinical evaluation and ?? follow-up. ? Left: ?? Bilateral scattered enhancing foci a few foci not above background are ?? probably benign. Recommend six-month follow-up MRI for further ?? evaluation of stability. ? ASSESSMENT: ?? LEFT BREAST: BI-RADS 3 probably benign. Recommend six-month follow-up ?? MRI for further evaluation of stability. ? RIGHT BREAST: BI-RADS 1-Negative ? RECOMMENDATIONS: ?? Probably benign recommend 6 month follow-up MRI for further evaluation ?? of stability. ? Electronically signed by: ??Susana Garcia DO ??12/28/2024 05:45 PM EDT ?? RP ? Dictated By: ?Susana Garcia DO ? Signed By: ?<Electronically signed by Susana Garcia, DO in OV> ? 12/28/24 1745 ? DD/ 1054 ? TD/TT: 12/23/24 113 ? C Architect: ? Procedure Note Donotuseinterpreter, Image - 12/28/[address] [address] Magnetic Resonance Report Signed Patient: Jacki Baker IMR#: [id number] : 1955cct:[id number] Age/Sex: 69 / FADM Date: 12/23/24 Loc: HO.MRI Attending Dr: Farhat Phillip CNM Ordering Physician: FARHAT PHILLIP CNM Date of Service: 12/23/24 Procedure(s): MR breast BI wo/w con Accession Number(s): [id number] cc: Karen Guthrie; FARHAT PHILLIP CNM EXAMINATION: MR BREAST WITHOUT AND WITH CONTRAST, BILATERAL CLINICAL INFORMATION: Right breast bloody implants nipple discharge. COMPARISON: Priors on PACS including mammogram and ultrasound in December 11, 2024. TECHNIQUE: MR imaging of the breast was performed using T1, T2 and fat saturated techniques. Dynamic multiphase imaging was also performed after administration of intravenous gadolinium contrast agent. Computer generated 3-D reconstruction was performed. FINDINGS: There is heterogeneous fibroglandular breast tissue with marked background enhancement with bilateral scattered enhancing foci. LEFT BREAST: There are bilateral symmetrical enhancing scattered foci. Within the retroareolar region middle depth series 1056 image 79/126 there are a few enhancing foci which question standout above background. No other suspicious enhancing masses or areas of nonmass enhancement. No architectural distortion. No internal mammary or axillary adenopathy. RIGHT BREAST: Bilateral symmetric scattered enhancing foci. No suspicious enhancing masses or areas of nonmass enhancement. No architectural distortion. No axillary adenopathy or internal mammary adenopathy. Limited views of the chest and abdomen are unremarkable. MR/MR breast BI wo/w con IMPRESSION: Right: No MRI evidence of malignancy or abnormality to account for the patient's bloody nipple discharge. Recommend clinical evaluation and follow-up. Left: Bilateral scattered enhancing foci a few foci not above background are probably benign. Recommend six-month follow-up MRI for further evaluation of stability. ASSESSMENT: LEFT BREAST: BI-RADS 3 probably benign. Recommend six-month follow-up MRI for further evaluation of stability. RIGHT BREAST: BI-RADS 1-Negative RECOMMENDATIONS: Probably benign recommend 6 month follow-up MRI for further evaluation of stability. Electronically signed by: Susana Garcia DO 12/28/2024 05:45 PM EDT RP Dictated By: Susnaa Garcia DO Signed By: <Electronically signed by Susana Garcia DO in OV> 12/28/24 1745 DD/ 1054 TD/TT: 12/23/24 1131 C Architect: Farhat BROWN IM MRI PROCEDURES Final Result * (ABNORMAL) Liver Fibrosis (HCV), FibroTest-ActiTest Panel (12/07/2024 10:35 AM EDT) Liver Fibrosis Score 0.38 [facility] Liver Fibrosis Stage F1-F2 [facility] Liver Fibrosis Interpretation SEE NOTE [facility] Comment:minimal fibrosisFibr o Test Score (f) Metavir Score f>=0 and f<=0.21 : F0 (no fibrosis)f>0.21 and f<=0.27 : F0-F1 (no fibrosis)f>0.27 and f<=0.31 : F1 (minimal fibrosis)f>0.31 and f<=0.48 : F1-F2 (minimal fibrosis)f>0.48 and f<=0.58 : F2 (moderate fibrosis)f>0.58 and f<=0.72 : F3 (advanced fibrosis)f>0.72 and f<=0.74 : F3-F4 (advanced fibrosis)f>0.74 and f<=1.00 : F4 (severe fibrosis) Nec Inflam Act Score 0.14 [facility] Nec Inflam Act Grade A0 [facility] Nec Inflam Act Interpretation SEE NOTE [facility] Comment:no activityActiTest Score (a) Metavir Score a>=0 and a<=0.17 : A0 (no activity)a>0.17 and a<=0.29 : A0-A1 (no activity)a>0.29 and a<=0.36 : A1 (minimal activity)a>0.36 and a<=0.52 : A1-A2 (minimal activity)a>0.52 and a<=0.60 : A2 (significant activity)a>0.60 and a<=0.62 : A2-A3 (significant activity)a>0.62 and a<=1.00 : A3 (severe activity) BVQ-Vbkul-5-Macroglo bulin 347(A) 106 - 279 mg/dL [facility] FIB-Haptoglobin 262(A) 43 - 212 mg/dL [facility] FIB-Apolipoprotein A1 165 101 - 198 mg/dL [facility] FIB-Total Bilirubin 0.3 0.2 - 1.2 mg/dL [facility] FIB-GGT 96(A) 3 - 65 U/L [facility] FIB-ALT 27 6 - 29 U/L [facility] Reference ID [id number] [facility] Footnote SEE NOTE [facility] Comment: The reliability of results is [...] and C.The performance characteristics have been determined by[facility]. Ithas not been cleared or approved by the U.S. Food and DrugAdministration. Performance characteristics refer to theanalytical performance of the test.[employer], [employer], the associated logo, [facility] and all associated [employer] yusuf are theregistered trademarks of [employer]. All third partymarks - (R) and (TM) - are the property of their respectiveowners. (C) [id number] [employer]. Allrights reserved.THIS TEST WAS PERFORMED AT:[employer] [id number] RODGER BAE ??[id number] MIR MD,PHD,CHAVA 12/07/2024 10:3 5 AM EDT 12/07/2024 10:35 AM EDT us Generic External Data Provider LAB BLOOD ORDERAB LES Final Result Performing Organization Address [facility] Co de Phone Number [facility] [address] [place] [phone] * (ABNORMAL) Hepatic Function Panel (12/07/2024 10:35 AM EDT) Bilirubin, Total 0.3 0.0 - 1.0 mg/dL [facility] Bilirubin, Direct <0.1 0.0 - 0.5 mg/dL [facility] Aspartate Amino Transferase 38(H) 5 - 31 U/L [facility] Alanine Aminotransferase 39(H) 0 - 31 U/L [facility] Total Protein 7.6 6.5 - 8.0 g/dL [facility] Albumin Level 4.5 3.5 - 5.0 g/dL [facility] Alkaline Phosphatase 87 39 - 117 U/L [facility] 12/07/2024 10:3 5 AM EDT 12/07/2024 10:35 AM EDT Generic External Data Provider LAB BLOOD ORDERAB LES Final Result Performing Organization Address [facility] Co de Phone Number [facility] [address] [place] [phone] * Creatinine, Serum (12/02/2024 9:31 AM EDT) Creatinine, Serum 0.91 0.5 - 1.4 mg/dL [facility] Estimated Glomerular Filt Rate >60 [facility] Comment:Chronic Kidney Disea se: Estimated GFR < 60 mL/min/1.89q7Qsmyoj Kidney Disease: Estimated GFR < 15 mL/min/1.73m2 Blood Venous blood specimen / Unknown 12/02/2024 9:31 AM EDT 12/02/2024 11:34 AM EDT Farhat Irene [facility] LAB BLOOD ORDERABLES Brit l Result Performing Organization Address City/[facility]/ZIP Co de Phone Number [facility] [address] [place] [phone] * BUN (Blood Urea Nitrogen) (12/02/2024 9:31 AM EDT) Urea Nitrogen (BUN) 13 9 - 16 mg/dL [facility] Blood Venous blood specimen / Unknown 12/02/2024 9:31 AM EDT 12/02/2024 11:34 AM EDT [facility] LAB BLOOD ORDERABLES Brit l Result Performing Organization Address City/[facility] Co de Phone Number [facility] [address] [place] [phone] * BI US Breast Limited Right (12/01/2024 12:20 PM EDT) Anatomical Region Laterality Modality Breast Right Ultrasound 12/01/2024 12:2 0 PM EDT Narrative 12/01/2024 1:00 PM EDT ? [facility] ? [address] ?[place] [address] ? Ultrasound Report ? Signed ? Patient: Baker,Jacki I ?MR#: [id number] ?? [id number] ? : 1955 ?Acct:[id number] ? Age/Sex: 69 / F ?ADM Date: 04//25 ? Loc: HO.MAMMO ? Attending Dr: Farhat Phillip CNM ? Ordering Physician: FARHAT PHILLIP CNM ?? Date of Service: 12/01/24 ?? Procedure(s): US breast RT limited mamm only ?? Accession Number(s): [id number] ? cc: Karen Guthrie; FARHAT PHILLIP CNM [...] DD/ 1220 ? TD/TT: 12/01/24 1235 ? C Architect: ? Procedure Note Donotwestoninterpreter, Image - 12/01/2024 [facility] [address] [place], [place] [address] Ultrasound Report Signed Patient: Jacki Baker IMR#: [id number] : 7Acct:[id number] Age/Sex: 69 / FADM Date: 12/01/24 Loc: HO.MAMMO Attending Dr: Farhat Phillip CNM Ordering Physician: FARHAT PHILLIP CNM Date of Service: 12/01/24 Procedure(s): US breast RT limited mamm only Accession Number(s): [id number] cc: Karen Guthrie; FARHAT PHILLIP CNM EXAMINATION: [...] Garcia DO 12/01/2024 12:57 PM EDT RP Dictated By: Susana Garcia DO Signed By: <Electronically signed by Susana Garcia DO in OV> 12/01/24 1257 DD/ 1220 TD/TT: 12/01/24 1235 C Architect: us Farhat Phillip CNM IMG US PROCEDURES Final R esult * BI Mammogram Diagnostic Tomosynthesis Bilateral (12/01/2024 12:15 PM EDT) Anatomical Region Laterality Modality Breast Bilateral Mammography 12/01/2024 12:1 5 PM EDT Narrative 12/01/2024 1:00 PM EDT ? [facility] ? [address] ?[place] [address] ?[phone] ? Mammography Report ? Signed ? Patient: Jacki Baker I ?MR#: [id number] ?? [id number] ? : 1955 ?Acct:[id number] ? Age/Sex: 69 / F ?ADM Date: 12/01/ ? Loc: HO.MAMMO ? Attending Dr: Farhat Phillip CNM ? Ordering Physician: FARHAT PHILLIP CNM ?Results: 1 ?? Negative ? Date of Service: 12/01/24 ?Follow Up: 1 Year From Orig ?? inal Mammogram ? Procedure(s): MM tomosynthesis diagnostic BI ?? Accession Number(s): [id number] ? cc: Karen Guthrie; FARHAT PHILLIP CNM [...] DD/ 1215 ? TD/TT: 12/01/24 1223 ? C Architect: ? Procedure Note Donotuseinterpreter, Image - 12/01/2024 [facility] [address] [place], [place] [address] Mammography Report Signed Patient: Jacki Baker IMR#: [id number] : 1955cct:[id number] Age/Sex: 69 / FADM Date: 12/01/24 Loc: HO.MAMMO Attending Dr: Farhat Phillip CNM Ordering Physician: FARHAT PHILLIPesults: 1 Negative Date of Service: 12/01/24Follow Up: 1 Year From Orig inal Mammogram Procedure(s): MM tomosynthesis diagnostic BI Accession Number(s): [id number] cc: Karen Guthrie; FARHAT PHILLIP CNM EXAMINATION: [...] Garcia DO 12/01/2024 12:57 PM EDT RP Dictated By: Susana Garcia DO Signed By: <Electronically signed by Susana Garcia DO in OV> 12/01/24 1257 DD/ 1215 TD/TT: 12/01/24 1223 C Architect: us Farhat Phillip CNM IMG BI PROCEDURES Final R esult * Hepatitis C Antibody with Reflex to HCV, RNA, Quantitative, Real-Time PCR (11/05/2024 10:58 AM EDT) Hepatitis C Antibody Nonreactive Nonreactive [facility] Comment:Antibodies to HCV no t detected; does not exclude early acuteHCV infection. Blood Venous blood specimen / Unknown 11/05/2024 10:58 AM EDT 11/05/2024 1:32 PM EDT us Karen Guthrie MD LAB BLOOD ORDERABLES Final Res ult [facility] [address] [place] [phone] * (ABNORMAL) Lipid Panel, Standard (11/05/2024 10:58 AM EDT) Triglycerides 328(H) <150 mg/dL [facility] Comment:Desirable Triglyceri de: less than 150 mg/dLBorderline High Triglyceride 150-199 mg/dLHigh Triglyceride: 200-499 mg/dLVery High Triglyceride: greater than or equal to 5OO mg/dL Cholesterol 147 <200 mg/dL [facility] Comment:Desirable Cholestero l: less than 200 mg/dLBorderline High Cholesterol: 200-239 mg/dLHigh Cholesterol: greater than 239 mg/dL LDL Cholesterol Calculated 38 <100 mg/dL [facility] Comment:Desirable LDL: less than 100 mg/dLNear Optimal/Above Optimal LDL: 110- 129 mg/dLBorderline High LDL: 130-159 mg/dLHigh LDL: 160-189 mg/dLVery High LDL: greater than or equal to 190 mg/dL HDL Cholesterol 44 >40 mg/dL [facility] Comment:Desirable HDL: great er than 40 mg/dL Note: This HDL assay may give artificially low results in patients with liver disease. Blood Venous blood specimen / Unknown 11/05/2024 10:58 AM EDT 11/05/2024 1:32 PM EDT Karen Guthrie MD LAB BLOOD ORDERABLES Final Res ult [facility] [address] [place] [address] [phone] * (ABNORMAL) POCT HGB A1C (11/05/2024 10:35 AM EDT) Hemoglobin A1C 9.3(A) 4.0 - 6.0 % QC Media Lot # [id number] Lot# Expiration Date , Blood 11/05/2024 10:3 5 AM EDT Karen Guthrie MD POINT OF CARE TEST ENTER/EDIT ORDERABLES Final Result * (ABNORMAL) POCT Glucose (11/05/2024 10:35 AM EDT) Glucose Blood, POC 382(A) 60 - 200 mg/dL Comment:Random QC Media Lot # [id number] Lot# Expiration Date ,013,979 Blood Capillary blood specimen / Unknown 11/05/2024 10:35 AM EDT Karen Guthrie MD POINT OF CARE TEST ENTER/EDIT ORDERABLES Final Result * (ABNORMAL) Albumin, Random Urine W/Creatinine (09/22/2023 9:54 AM EST) Creatinine, Urine 228.61 mg/dL [facility] Microalbumin Urine 1,362.0 mg/L [facility] Microalbum Creatinine Ratio Ur 595.7(H) <30 ug/mg cr [facility] Comment:Albumin/Creatinine R atio Reference Ranges: Normal: < 30 ug/mg creatinine Microalbuminuria: 30 - 300 ug/mg creatinineClinical Albuminuria: > 300 ug/mg creatinine Urine (Urine, Random) 09/22/2023 9:54 AM EST 09/22/2023 11:03 AM EST Karen Guthrie MD LAB URINE ORDERABLES Final Res ult Performing Organization Address City/State/[facility] Co de Phone Number [facility] [address] [place] [address] [phone] * FIT DNA/Cologuard Cancer Screening (04/02/2023) Cologuard Cancer Screen Negative Stool Karen Guthrie MD HEALTH MAINTENANCE Final Resul t from Last 3 Months or Most Recently Relevant to Health Maintenance Insurance [facility] [employer] (O D-SNP) JENI BULLOCK [id number] Care Teams Tobacco Cloth Reclaimer Relationship Specialty Start Date End Date Karen Guthrie MD [address] [place] [address] PCP - General Family Medicine 07/15/22
== END 2025-01-13 10:43 | disposition home or self-care (01) ==
LOC: HO.ENCR 09:24
PROVIDERS: PCP General Practice; Visit Provider Nurse Practitioner Adult Health
DX: E11.9 Type 2 diabetes mellitus without complications (principal)
CPT/HCPCS: 99214; G2211

== ENCOUNTER → 2025-01-13 09:23 | Outpatient (BNVA) | payer OTHER, SELFPAY | PROVIDERS: PCP General Practice; Visit Provider Nurse Practitioner Adult Health | DX: E11.9 Type 2 diabetes mellitus without complications (principal); Z79.4 Long term (current) use of insulin | CPT/HCPCS: 82947; 83036; 99212 ==

== ENCOUNTER 2025-01-31 09:19 | Outpatient (REF) | payer OTHER, SELFPAY ==
--- NOTE | ~2025-01-31 | MM_ITS ---
EXAMINATION: MM DIAGNOSTIC DIGITAL BREAST TOMOSYNTHESIS, BILATERAL CLINICAL INFORMATION: 1 year follow-up for grouped calcifications in the left breast. COMPARISON: Mammography: Comparison is made with relevant prior exams. TECHNIQUE: Digital breast mammography with tomosynthesis is performed in both the craniocaudal and mediolateral oblique views along with computer-aided detection (CAD). FINDINGS: The breasts are heterogeneously dense, which may obscure small masses (ACR BI-RADS breast composition Category c). Grouped coarse heterogeneous calcifications in the central outer and upper outer left breast are not significantly changed from prior magnification views dating back for one year. No suspicious masses or other abnormal findings. Results are provided to the patient at time of visit by the technologist. MM/MM tomosynthesis diagnostic BI IMPRESSION: Right: Benign. Left: Grouped calcifications in the central outer and upper outer left breast are not significantly changed on magnification views for one year. Recommend follow-up with magnification views in one year when the patient will be due for bilateral mammography. ASSESSMENT: BI-RADS BI-RADS 3 - Probably benign finding(s) - 12 month follow-up suggested RECOMMENDATION: 12 month diagnostic follow up This patient's information was entered into a reminder system with a target due date for their next mammogram. Electronically signed by: Susana Garcia DO 01/31/2025 02:38 PM EDT
--- OUTSIDE RECORDS SUMMARY | 2025-01-31 09:47 | XMS_ITS | Encounter Summary ---
Author Organization [employer] Address [address] [place] [address] Care Team Providers Care Paradi Operator Name Role Phone Karen Guthrie MD Primary Care Provider [phone] Encounter Details Date Type Department Care Team ([facility] st Contact Info) Description 04/18/2023 Orders Only [facility] [address] [place], [place] [phone] Karen Guthrie MD [address] [place] [address] Social History Tobacco Use Types Packs/Day Years [...] as of this encounter Plan of Treatment Not on file documented as of this encounter Visit Diagnoses Not on filedocumented in this encounter Care Teams Paradi Operator Relationship Specialty Start Date End Date Karen Guthrie MD [address] [place], [place] [phone] PCP - General Family Medicine 07/15/22 documented as of this encounter
== END 2025-01-31 09:20 | disposition home or self-care (01) ==
LOC: HO.MAMMO 09:19
PROVIDERS: PCP General Practice; Visit Provider General Practice
DX: R92.1 Mammographic calcification found on diagnostic imaging of breast (principal)
CPT/HCPCS: 77062; 77066

== ENCOUNTER → 2025-01-31 09:30 | Outpatient (BNV) | payer OTHER, SELFPAY | PROVIDERS: PCP General Practice; Visit Provider Internal Medicine | DX: R92.1 Mammographic calcification found on diagnostic imaging of breast (principal) | CPT/HCPCS: 77066; G0279 ==

== ENCOUNTER 2025-03-04 10:32 | Outpatient (AMB) | payer OTHER, SELFPAY ==
--- NOTE | 2025-03-04 10:35 | A.OFFVIS_ITS ---
Vital Signs 03/04/25 10:36 Height 5 ft 6 in Weight 145 lb 8.081 oz BMI 23.5 BP 134/76 Blood Pressure Location Lt brachial Position Sitting Pulse 92 Intake Visit Reasons: 4 weeks f/u , needs sooner appt Intake Note: Jacki presents in the office as a 4 week follow up. CC: States that she is having constipation. Denies any other GI symptoms. Inspecting And Testing Lead Hand Required: Yes Allergies Penicillins (PENICILLINS) Allergy (Intermediate, Verified 03/04/25 10:38) ITCH/RASH sulfamethoxazole (From Bactrim) Allergy (Intermediate, Verified 03/04/25 10:38) RASH sumatriptan Allergy (Intermediate, Verified 03/04/25 10:38) rash trimethoprim (From Bactrim) Allergy (Intermediate, Verified 03/04/25 10:38) RASH pepperoni Allergy (Intermediate, Uncoded 03/04/25 10:38) rash HPI HPI 4 weeks f/u , needs sooner appt: Details: Fatty liver Abdominal pain Acid reflux Chronic constipation Postprandial abdominal bloating Tubular adenoma of colon Plan Will check liver panel and liver fibrosis panel. Patient will stop omeprazole and will start taking pantoprazole. Avoid dietary triggers and late night snacking. Staying upright for minimum 3 hours after meals discussed with patient. Patient will start taking Dulcolax daily. Increase fluid intake and activity to promote better bowel motility. Patient will return in 5 weeks to re- evaluate. She will need to go for colonoscopy. Patient is agreeable to this plan and verbalizes understanding of instructions. She was given the opportunity to ask questions and all questions answered. ? Thank you for allowing me to participate in her care Orders Liver Panel 12/07/24 R74.01 Liver Fibrosis Pnl 12/07/24 K76.0 New pantoprazole take one tablet half an hour before breakfast 40 mg PO DAILY 30 tabs 2RF K21.9 bisacodyl (Dulcolax (bisacodyl)) 10 mg (2 x 5 mg) PO BEDTIME 180 tabs 4RF Discontinued omeprazole Discontinued Reason: Doctor's Order 20 mg PO DAILY 30 caps 5RF TODAY'S VISIT: Patient is here today for follow-up. Patient reports that she continues to be constipated and bloated. Reports that she is taking Dulcolax, however still feels like she is unable to have a bowel movement every day. When she has a bowel movement does not feel like she empties completely. Patient reports that symptoms of acid reflux are suppressed with pantoprazole. Patient denies any nausea or vomiting. Denies dyspepsia, dysphagia or odynophagia. Patient denies melena, hematochezia, unintentional weight loss or ribbon like stools. Patient reports occasional abdominal cramping. Denies any nausea or vomiting. PENDING SALE TO [facility] Medical History Fatty liver Nephropathy Pre-ulcerative corn or callous Abnormal colonoscopy Colon adenomas Nausea & vomiting Irritable bowel syndrome with constipation History of hyperopia Gastroenteritis Memory impairment Hyperlipidemia Hypertension Myalgia and myositis Urinary incontinence Diabetes mellitus Depression Anxiety Insomnia History of lipoma Surgical History History of carpal tunnel surgery Hx of cataract extraction Hx of right breast biopsy Hx of colonoscopy History of esophagogastroduodenoscopy (EGD) Hx of foot surgery History of back surgery Hx of total hysterectomy Family History Mother Diabetes Father Prostate cancer Social History Household Members: None Household Members Other:: none Housing: Apartment Do you presently have visiting nurse or other home services: Yes ([employer] and [employer]) Alcohol intake: never Patient Tobacco Use Status: Never used Tobacco service: No Current occupational status: disabled Sexual orientation: Straight/Heterosexual Review of Systems Const Denies weight gain and Denies weight loss ENT Reports no additional complaints, Denies dysphagia and Denies odynophagia Card Reports no additional complaints Resp Reports no additional complaints GI Denies abdominal pain, Denies belching, Denies melena, Reports bloating, Denies change in bowel habits, Reports constipation, Denies dysphagia, Denies excessive flatus, Denies dyspepsia, Denies heartburn, Denies diarrhea, Denies loose stools, Denies nausea, Denies odynophagia and Denies vomiting Reports no additional complaints Musc Reports no additional complaints Neuro Reports no additional complaints Psych Reports no additional complaints Endo Reports no additional complaints Physical Exam Vital Signs: Last Vital Signs Pulse 92 03/04/25 10:36 BP 134/76 03/04/25 10:36 BMI result Body Mass Index 23.5 Const General: healthy appearing, no acute distress and well developed Nutritional Appearance: well nourished Orientation/consciousness: patient oriented x3 Resp Effort & Inspection: normal respiratory effort, able to speak in complete sentences, no tracheal deviation and symmetric chest movement Auscultation: clear to auscultation bilaterally Cardio Rate: regular rate GI Inspection: Yes normal to inspection and No distended Palpation (GI): Soft to palpation, not firm, nontender and No hepatosplenomegaly present Auscultation: normal bowel sounds General: Yes no CVA tenderness Back/Spine/Pelvis Back: no CVA tenderness Skin General skin exam: elasticity normal, turgor normal and dry skin Neuro General: patient oriented x3 Psych Appearance: grossly normal Mental Status: mental status grossly normal Results Reviewed Results Reviewed: Laboratory Tests 12/07/24 10:35 AST 38 H ALT 39 H Alkaline Phosphatase 87 Liver Fibrosis Stage F1-F2 Laboratory Tests 01/13/25 09:36 Hgb A1c (Clinic) 9.2 H Assessment & Plan Assessment & Plan (1) Acid reflux: Code(s): K21.9 - Gastro-esophageal reflux disease without esophagitis Category: Medical Qualifiers: Esophagitis presence: esophagitis presence not specified Qualified Code(s): K21.9 - Gastro-esophageal reflux disease without esophagitis (2) Fatty liver: Code(s): K76.0 - Fatty (change of) liver, not elsewhere classified Category: Medical (3) Chronic constipation: Code(s): K59.09 - Other constipation Category: Medical (4) Abdominal pain: Code(s): R10.9 - Unspecified abdominal pain Category: Medical Qualifiers: Abdominal location: generalized Qualified Code(s): R10.84 - Generalized abdominal pain Plan Poorly controlled diabetes. Discussed with patient the importance of trying to follow recommendation from Endocrinology. Continue pantoprazole. Avoid dietary triggers in late night snacking. Staying at any 3 hours after meals discussed with patient. Patient to try true Linzess. Increase fluid intake and activity to promote better bowel motility. Patient will follow-up in the office in 3 months, sooner on as needed basis. She is agreeable to this plan and verbalizes understanding of instructions. He was given the opportunity to ask questions and all questions answered. Thank you for allowing me to participate in her care Medications: New plecanatide (Trulance) 3 mg PO DAILY 30 tabs 3RF K59.09 - Other constipation pantoprazole take one tablet half an hour before breakfast 40 mg PO DAILY 30 tabs 2RF K21.9 - Gastro-esophageal reflux disease without esophagitis Discontinued pantoprazole take one tablet half an hour before breakfast Discontinued Reason: Patient no longer taking 40 mg PO DAILY 30 tabs 2RF K21.9 - Gastro-esophageal reflux disease without esophagitis Coding Level of Care Code Est Pt Level 3 (49797) Diagnoses Gastroesophageal reflux disease, unspecified whether esophagitis present K21.9 Esophagitis presence: esophagitis presence not specified Fatty liver K76.0 Chronic constipation K59.09 Generalized abdominal pain R10.84 Abdominal location: generalized Time Spent (min) 30 Comment 20 minutes spent with patient and additional 10 minutes spent reviewing her records
[2025-03-04 10:36] VITALS: BP 134/76; PULSE 92; BMI 23.5
--- OUTSIDE RECORDS SUMMARY | 2025-03-04 11:03 | XMS_ITS | Data Portability ---
Author Organization [employer], [facility] Address [address] [place] [phone] Care Team Providers Care Latin Dancer Name Role Phone [facility] Referring Provider YASEMIN LAMBERT Primary Care Provider Assessment Encounter Date Assessment Date Assessment LastModified by Organization Details LastModified Time 10/18/2022 10/18/2022 I provided real -time medical direction via phone for this encounter, and was available for additional phone based assistance as needed. I have reviewed and agree with the Assessment and Plan as documented by the Heavy Forging Machine Operator. Patient given the opportunity to ask questions. [email or web address] Not available 10/18/2022 23:13:30 12/11/2022 12/11/2022 I provided real -time medical direction via phone for this encounter, and was available for additional phone based assistance as needed. I have reviewed and agree with the Assessment and Plan as documented by the Heavy Forging Machine Operator. Patient given the opportunity to ask questions. Advised if develops CP/severe SOB/ increased abd pain/uncontrolle d n/v/d or black/bloody emesis or stool/ AMS/ syncope/ hi fever to call 911- verbalized understanding of instructions [email or web address] Not available 12/11/2022 16:54:21 05/06/2023 05/06/2023 I provided real -time medical direction via phone for this encounter, and was available for additional phone based assistance as needed. I have reviewed the Assessment and Plan as documented by the Heavy Forging Machine Operator. Patient given the opportunity to ask questions. Not available 05/07/2023 10:28:45 Plan of Treatment Reminders Order Date Submit Date Provider Last Modified By Organization Details Last Modified Time Details Appointments None recorded. Lab BMP, serum or plasma [email or web address] [facility], [address] [place] [address], [id number] 3 10:28:26 rapid SARS CoV 2 Ag, QL IA, respiratory specimen 2022 023 [email or web address] 0 [facility], [address] [place] [address], [id number] 3 10:28:26 rapid flu (A+B) 2022 023 [email or web address] 0 [facility], [address] [place] [address], [id number] 3 10:28:26 BMP, serum or plasma 2022 023 [email or web address] 0 [facility], [address] [place] [address], [id number] 3 17:09:27 urinalysis, dipstick 2022 023 [email or web address] 0 [facility], [address] [place] [address], [id number] 3 23:34:46 BMP, serum or plasma 2022 023 [email or web address] 0 [facility], [address] [place] [address], [id number] 3 23:34:46 Referral None recorded. Procedures None recorded. Surgeries None recorded. Imaging None recorded. Medication Orders sodium chloride 0.9 % intravenous solution 2022 023 [email or web address] 0 [facility], [address] [place] [address], [id number], 3 10:28:26 ondansetron HCl (PF) 4 mg/2 mL injection solution 2022 023 [email or web address] 0 [facility], [address] [place] [address], [id number], 3 10:28:26 ondansetron 4 mg disintegrat ing tablet 2022 023 [facility], [address] [place] [address], [id number], 3 17:01:14 sodium chloride 0.9 % intravenous solution 2022 023 [email or web address] 0 [facility], [address] [place] [address], [id number], 3 17:09:27 ondansetron HCl (PF) 4 mg/2 mL injection solution 2022 023 [email or web address] 0 [facility], [address] [place], [place], [id number], 3 17:09:27 sodium chloride 0.9 % intravenous solution 2022 023 [email or web address] 0 Not available 3 23:34:46 Patient TargetsNo targets recorded. Patient InstructionsNo instructions recorded. Reason for Referral None Reported. Results Created Date Observation Date Name Description Value Unit Range Abnormal Flag Note LastModifiedBy Organization Detail LastModifiedTime 10/18/1910/18/2022 urina lysis , dipst ick Leukocytes neg Not Available [facility] [address] [place] [address], [id number] 10/18/2022 23:20:01 10/18/19 23 10/18/2022 urina lysis , dipst ick Nitrite negati ve Not Available [facility] [address], [address] 10/18/2022 23:20:01 10/18/19 23 10/18/2022 urina lysis , dipst ick Urobilinogen neg Not Available [facility] [address] [place] [address], [id number] 10/18/2022 23:20:01 10/18/19 23 10/18/2022 urina lysis , dipst ick Protein neg Not Available [facility] - [facility] [address], [address] 10/18/2022 23:20:01 10/18/19 23 10/18/2022 urina lysis , dipst ick pH 6.5 Not Available [facility] [address], [address] 10/18/2022 23:20:01 10/18/19 23 10/18/2022 urina lysis , dipst ick Blood neg Not Available [facility] [address], [address] [place] [address] 10/18/2022 23:20:01 10/18/19 23 10/18/2022 urina lysis , dipst ick Specific [place] 1;025 Not Available [facility] [address] [place] [address], [address] [place] [address] 10/18/2022 23:20:01 10/18/19 23 10/18/2022 urina lysis , dipst ick Ketone trace Not Available [facility] michael [address] [place] [address], [address] [place] [address] 10/18/2022 23:20:01 10/18/19 23 10/18/2022 urina lysis , dipst ick Bilirubin trace Not Available Main - [facility] [address], [address] [place] [address] 10/18/2022 23:20:01 10/18/19 23 10/18/2022 urina lysis , dipst ick Glucose negati ve Not Available [facility] [address] [place] [address], [address] [place] [address] 10/18/2022 23:20:01 10/18/19 23 10/18/2022 urina lysis , dipst ick Appearance clear Not Available [facility] [address] [place] [address], [address] [place] [address] 10/18/2022 23:20:01 10/18/19 23 10/18/2022 urina lysis , dipst ick Color yelllo w Not Available [facility] [address] [place] [address], [address] [place] [address] 10/18/2022 23:20:01 10/18/19 23 10/18/2022 BMP, serum or plasm a BUN 8 Not Available [facility] [address], [address] [place] [address] 10/18/2022 23:20:03 10/18/19 23 10/18/2022 BMP, serum or plasm a Ca I az = 1.21 Not Available [facility] [address] [place] [address], [address] [place] [address] 10/18/2022 23:20:03 10/18/19 23 10/18/2022 BMP, serum or plasm a CI- 102 Not Available [facility] [address], [address] [place] [address] 10/18/2022 23:20:03 10/18/19 23 10/18/2022 BMP, serum or plasm a CRE 0.5 Not Available [facility] [address], [address] [place] [address] 10/18/2022 23:20:03 10/18/19 23 10/18/2022 BMP, serum or plasm a GLU 100 Not Available [facility] [address], [address] [place] [address] 10/18/2022 23:20:03 10/18/19 23 10/18/2022 BMP, serum or plasm a K+ 4 Not Available [facility] - [facility] [address], [address] [place] [address] 10/18/2022 23:20:03 10/18/19 23 10/18/2022 BMP, serum or plasm a Na+ [address] [facility] - [facility] [address], [address] [place] [address] 10/18/2022 23:20:03 10/18/19 23 10/18/2022 BMP, serum or plasm a tCO2 25 Not Available [facility] - [facility] [address], [address] [place] [address] 10/18/2022 23:20:03 12/12/19 23 12/11/2022 BMP, serum or plasm a BUN [address] [facility] - [facility] [address], [address] [place] [address] 12/11/2022 17:06:59 12/12/19 23 12/11/2022 BMP, serum or plasm a Ca I az 1.[address] [facility] - [address], [address] [place] [address] 12/11/2022 17:06:59 12/12/19 23 12/11/2022 BMP, serum or plasm a CI- [address] [facility] - [facility] [address], [address] [place] [address] 12/11/2022 17:06:59 12/12/19 23 12/11/2022 BMP, serum or plasm a CRE 0.[address] [facility] - [facility] [address], [address] [place] [address] 12/11/2022 17:06:59 12/12/19 23 12/11/2022 BMP, serum or plasm a GLU 146 Not Available [facility] - [facility] [address], [address] 12/11/2022 17:06:59 12/12/1912/11/2022 BMP, serum or plasm a K+ 3.9 Not Available [facility] [address], [address] [place] [address] 12/11/2022 17:06:59 12/12/19 23 12/11/2022 BMP, serum or plasm a Na+ 140 Not Available [facility] [address], [address] [place] [address] 12/11/2022 17:06:59 12/12/19 23 12/11/2022 BMP, serum or plasm a tCO2 19 Not Available [facility] [address], [address] [place] [address] 12/11/2022 17:06:59 05/06/20 23 05/06/2023 rapid flu (A+B) Flu negati ve Not Available [facility] [address] [place] [address], [address] [place] [address] 05/06/2023 12:56:53 05/06/2005/06/2023 rapid SARS CoV 2 Ag, QL IA, respi rator y speci men rapid SARS CoV 2 Ag, QL IA, respiratory specimen negati ve Not Available [facility] [address] [place] [address], [address] [place] [address] 05/06/2023 12:56:51 05/07/2005/07/2023 BMP, serum or plasm a BUN 14 Not Available [facility] - [facility] [address], [address] [place] [address] 05/06/2023 12:56:14 05/07/2005/07/2023 BMP, serum or plasm a Ca I AZ 5(nl) Not Available [facility] [address] [place] [address], [address] [place] [address] 05/06/2023 12:56:14 05/07/2005/07/2023 BMP, serum or plasm a CI- 103 Not Available [facility] - [facility] [address], [address] 05/06/2023 12:56:14 05/07/2005/07/2023 BMP, serum or plasm a CRE 0.54 Not Available [facility] - [facility] [address], [address] 05/06/2023 12:56:14 05/07/2005/07/2023 BMP, serum or plasm a GLU 163 Not Available [facility] [address], [address] 05/06/2023 12:56:14 05/07/2005/07/2023 BMP, serum or plasm a K+ 4.5 Not Available [facility] [address], [address] 05/06/2023 12:56:14 05/07/2005/07/2023 BMP, serum or plasm a Na+ 139 Not Available [facility] [address], [address] 05/06/2023 12:56:14 05/07/2005/07/2023 BMP, serum or plasm a tCO2 [address] [facility] - [facility] [address], [address] 05/06/2023 12:56:14 Result Notes None recorded. Medical Equipment None Reported. Allergies Allergen ID Allergen Name Allergen Category Reaction Reaction Severity Criticality Documentation Date Start Date Code Code System Note Provider Name and Address Organization Details Recorded Time 1956 Product containin g angiotens in-conver ting enzyme inhibitor (product) medicatio n cough Not available Not available 10/18/2022 51391 009 SNOMED Ale Mendoza MD [address] [place] [address],[address], [place], [address], [employer] 3 22:57:07 1958 Bactrim medicatio n Not available Not available Not available 10/18/2022 05660 9 RxNorm Ale Mendoza MD [address] [place] [address],[address], [place], [address], [employer], [employer] 3 22:57:21 1959 Product containin g penicilli n (product) medicatio n Not available Not available Not available 10/18/2022 76773 8001 SNOMED Not Available [facility] - production 4 03:47:40 8911 aspirin medicatio n Not available Not available Not available 06/22/2024 1191 RxNorm Not Available [facility] - production 4 03:47:40 8912 omeprazol e medicatio n Not available Not available Not available 06/22/2024 7646 RxNorm Not Available [facility] 4 03:47:40 Medications Name Sig Start Date [...] Available UltiCare Pen Needle 32 gauge x 32 USE DIRECTED TO INJECT DAILY active Not [...] Available No t Available [employer] Khalif 2 [place] Spring USE TO TEST BLOOD SUGAR THREE TIMES DAILY AND NEEDED active Not Available Not Available No t Available Vitals Date Recorded Body weight Provider Name an d Address Organization Details Last Updated DateTime 10/18/2022 30397.22 g Kristy Acosta [address] [place] [address],[address] [facility], [place], [address], [place] - [employer] 10/18/2022 23:07:43 Date Recorded Body temperature Heart rate Oxygen saturation Oxygen saturation in Arterial blood by Pulse oximetry Respiratory rate Heart rate Body temperature Oxygen saturation Oxygen saturation in Arterial blood by Pulse oximetry Respiratory rate Systolic And Diastolic Systolic And Diastolic Provider Name and Address Organization Details Last Updated DateTime 3 98 [degF] 87 /min 98 % 98 % 16 /min 87 /min 98 [degF] 98 % 98 % 16 /min 148/82 mm[Hg] 148/82 mm[Hg] Not Available [employer] 3 12:02:20 Date Recorded Respiratory rate Body temperature Heart rate Body weight Oxygen saturation Oxygen saturation in Arterial blood by Pulse oximetry Body height Body temperature Body weight Heart rate Respiratory rate Body height Provider Name and Address Organization Details Last Updated DateTime 3 18 /min 98.6 [degF] 100 /min 56335.8 g 98 % 98 % 157.48 cm 98.6 [degF] 84433.8 g 100 /min 18 /min 157.48 cm Not Available [employer] - production 3 13:15:40 Date Recorded Oxygen saturation Oxygen saturation in Arterial blood by Pulse oximetry Systolic And Diastolic Systolic And Diastolic Provider Name and Address Organization Details Last Updated DateTime 12/11/2022 98 % 98 % 135/87 mm[Hg] 135/87 mm[Hg] Not Available [employer] - production 3 13:15:40 Date Recorded Body weight Respiratory rate Heart rate Body height Body temperature Oxygen saturation Oxygen saturation in Arterial blood by Pulse oximetry Systolic And Diastolic Provider Name and Address Organization Details Last Updated DateTime 3 37444.6 4 g 16 /min 94 /min 162.56 cm 98 [degF] 95 % 95 % 138/83 mm[Hg] Not Available [employer] - 3 12:51:48 Social History None recorded. Functional Status None recorded. Mental Status None recorded. Family History Nothing Reported. Medical History No medical history recorded. Gynecological HistoryNo gynecological history recorded. Obstetrics History GPAL:G 0 P 0 0 0 0 Past Encounters Encounter ID Performer Location Encounter Start Date Encounter Closed Date Diagnosis/Indication Diagnosis SNOMED-CT Code Diagnosis ICD10 Code Diagnosis Note [id number] Ale Mendoza MD [facility] [address] [place] [phone] 10/18/2022 11:17:31 10/21/2022 09:40:55 Gastroenteritis 96187632 K52.9 w/ GERD- advised BRAT/ bland diet- [...] a lot better after iv f/ meds [id number] Ale Mendoza MD [facility] [address] [place] [phone] 12/11/2022 11:50:55 12/13/2022 09:41:45 Abdominal pain 97821853 R10.9 w/ n/v/d- advised to hold the [...] lo threshold for going to the ED [id number] Ale Mendoza MD [facility] [address] [place] [phone] 05/06/2023 12:51:33 05/07/2023 11:54:31 Abdominal pain 34417288 R10.9 w/ n/v/d- significan t abd distention and very elevated lactate- although remainder labs nl/ vss - concern for SBO/ risk for perforatio n/ intra-abdo bhanu infection/ early sepsis- advised needs imaging and further emergent eval / treatment in the ED- patient agreeable- report called to [place] [facility]. S medic arrived for EMS so [facility] medic rode in to continue IVF en route to the ER. Health Concerns Section Related Observation LastModified by Organization Detai ls LastModified Time None Recorded Concern Status LastModified by Organization Details LastModified Time None Recorded Advance Directives Directive None Recorded Payers Insurance Date Sequence Insurance Name Policy Number Policy Javier Covered Member ID Javier Member ID Guarantor Name 05/06/2023 1 [facility] - DOS PRIOR TO 2022 - DUAL ELIGIBLE (MEDICARE REPLACEMENT/ADV ANTAGE - HMO) Jacki Baker [id number] Jacki Baker 05/05/2024 1 [facility] - DOS ON OR AFTER 2022 - DUAL ELIGIBLE - [employer] OPTIONS AND ONE CARE (MEDICARE REPLACEMENT/ADV ANTAGE - [facility] [place] Jacki Baker [id number] Jacki Baker Notes Date Note Type Note [...] ..................... ..................... ..................... ..................... ..................... ..................... ............... Heavy Forging Machine Operator Note From Elias Washington: PT c/o n/v/d x2 weeks, states that it s a probable gastroenteritis episode. Pt notes 06/03 abd pain. B/s normal [...] and given 15mg Toradol ordered and given Heavy Forging Machine Operator Allergies: Aspirin, Omeprazole, Penicillin ..................... ..................... [...] with these spells. Ale Mendoza MD [address] [facility],[address], [place], [address], [email or web address] 10/18/2022 23:36:31 12/11/2022 text/html HPI: Call to [...] ..................... ..................... ..................... ..................... ..................... ..................... ............... Heavy Forging Machine Operator Note From Steve Lozoya: Pt answers [...] orders NS 1L IV, zofran 4mg IV 2 BMP to [facility] via portal. Pt advised by [facility] to stop taking antibiotics until she can talk to her PCP, eat only BRAT diet (explained) and drink clear liquids. Red flags and pt education discussed. Heavy Forging Machine Operator Allergies: Aspirin, Omeprazole, Penicillin, Trimethoprim-Sulfamet hoxazole [...] denies UTi s/s Ale Mendoza MD [address] [facility],[address], [place], [address], [place] VIVIAN Mayito SAKSHIMARII 12/11/2022 17:10:18 05/06/2023 text/html HPI: Vomiting and wants to make sure she is not dehydrated>has been experiencing symptoms for about 3 days. ..................... ..................... ..................... ..................... ..................... ..................... ............... [facility] Nursing Assessment: Comments: Requestor unable to give additional details. ..................... ..................... ..................... ..................... ..................... ..................... ............... Heavy Forging Machine Operator Note From Silvano Garcia: Pt reports n/v/d for three days. Pt denies CP, SOB, fevers, chills, hematochezia, hematemesis. Pt is alert, NAD. VSS. Afebrile. Neuro exam and gait normal. Lungs CTA. ABD is distended and tender in epigastric region. + BS x4. No LLE. Rapid covid and flu negative. POC BMP lactate 36.2. [facility] contacted and advised pt be seen in ED. 911 initiated. Normal saline 500 mg IV and Ondansetron 4 mg IVP administered en route to [place] [facility]. [facility] microwave technician maintained all pt care until transfer of care to [place] RN. [facility] Lab Orders: BMP, serum or plasma: Performed rapid SARS CoV 2 Ag, QL IA, respiratory specimen: Performed rapid flu (A+B): Performed ..................... ..................... ..................... ..................... ..................... ..................... ............... Disposition: Fulfilled Ale Mendoza MD [address] [place] [address],[address], [place], [address], VIVIAN [employer] Software[employer]II COUGHLIN 05/07/2023 10:32:09 OBGyn Episode No OBEpisode recorded.
--- OUTSIDE RECORDS SUMMARY | 2025-03-04 11:03 | XMS_ITS | Encounter Summary ---
Author Organization [employer] Address [address] [facility] [address] [place] [address] Care Team Providers Care Harvest Field Ticketer Name Role Phone Karen Guthrie MD Primary Care Provider [phone] Encounter Details Date Type Department Care Team (Late Contact Info) Description 04/18/2023 Orders Only [facility] MEDICINE [address] [place] [address] Karen Guthrie MD [address] [place] [address] Social History Tobacco Use Types Packs/Day Years [...] Department Care Team (Late Contact Info) Description 03/18/2025 9:30 AM EDT Office Visit [facility] ADULT DENTAL [address] [place] [address] Esteban-HayesAlda goode, DDS [address] [place] [address] 07/25/2025 9:30 AM EST Office Visit [facility] OPTOMETRY [address] [place], [place] [phone] Yocasta Jones, OD [address] [place] [address] documented as of this encounter Visit Diagnoses Not on filedocumented in this encounter Care Teams Harvest Field Ticketer Relationship Specialty Start Date End Date Karen Guthrie MD [address] [place], [place] [phone] PCP - General Family Medicine 07/15/22 documented as of this encounter
== END 2025-03-04 11:04 | disposition home or self-care (01) ==
LOC: HO.HGI 10:32
PROVIDERS: PCP Internal Medicine; Visit Provider Nurse Practitioner Family
DX: K21.9 Gastro-esophageal reflux disease without esophagitis (principal); K76.0 Fatty (change of) liver, not elsewhere classified; K59.09 Other constipation; R10.84 Generalized abdominal pain
CPT/HCPCS: 99213

== ENCOUNTER → 2025-03-04 10:32 | Outpatient (BNVA) | payer OTHER, SELFPAY | PROVIDERS: PCP Internal Medicine; Visit Provider Nurse Practitioner Family | DX: K21.9 Gastro-esophageal reflux disease without esophagitis (principal); K76.0 Fatty (change of) liver, not elsewhere classified; K59.09 Other constipation; R10.84 Generalized abdominal pain | CPT/HCPCS: 99212 ==

== ENCOUNTER 2025-04-29 10:41 | Emergency (ER) | payer OTHER, SELFPAY ==
--- NOTE | ~2025-04-29 | CT_ITS ---
EXAMINATION: CT MAXILLOFACIAL WITHOUT IV CONTRAST HISTORY: fell, hit face on ground. TECHNIQUE: Serial 1.5 mm helically acquired images were obtained of the facial bones per standard departmental protocol. Coronal and sagittal reformatted images were also obtained and evaluated. One or more of the following techniques was used for dose reduction: Automated exposure control, adjustment of the mA and/or kV according to patient size, use of iterative reconstruction technique. DLP: 374 mGy-cm COMPARISON: There are no prior studies available for comparison. FINDINGS: The facial bones are intact. No fractures are identified. The globes are intact. There is a polyp versus mucous retention cyst in the right maxillary sinus. The visualized portion of the brain is unremarkable. No soft tissue abnormality is identified. CT/CT facial bones wo IV con IMPRESSION: No evidence of fracture of the facial bones. Electronically signed by: Alan Pollack MD 04/29/2025 11:38 AM EDT
--- NOTE | ~2025-04-29 | CT_ITS ---
EXAMINATION: CT HEAD WITHOUT IV CONTRAST HISTORY: fall with head strike. TECHNIQUE: Unenhanced helical CT of the head was performed per standard departmental protocol. Coronal and sagittal reformats of the head were also evaluated. One or more of the following techniques was used for dose reduction: Automated exposure control, adjustment of the mA and/or kV according to patient size, use of iterative reconstruction technique. DLP: 637 mGy-cm COMPARISON: Comparison is made with the prior examination dated 12/03/2021. FINDINGS: BRAIN: Again seen are scattered periventricular and subcortical white matter hypodensities which are nonspecific, but often seen in the setting of small vessel ischemic disease. There is no mass effect or midline shift. The ventricular system is normal in size and configuration. No intra- or extra-axial fluid collections are identified. SINUSES: The visualized paranasal sinuses are clear. The mastoid air cells and middle ear cavities are well pneumatized. ORBITS: The visualized orbits are unremarkable. BONES/SOFT TISSUES: The extracranial soft tissues are unremarkable. The calvarium is intact. No suspicious lytic or sclerotic lesions. CT/CT head/brain wo IV con IMPRESSION: No acute intracranial abnormality. Electronically signed by: Alan Pollack MD 04/29/2025 11:35 AM EDT
--- NOTE | ~2025-04-29 | XR_ITS ---
EXAMINATION: XR HAND/WRIST, LEFT CLINICAL INFORMATION: fall, pain distal COMPARISON: None available. TECHNIQUE: Three views of the left hand. 4 views of the left wrist. FINDINGS: There is no fracture, dislocation, or suspicious bone lesion. There is normal alignment. 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 Carpal bones appear intact and normally aligned. Mild dorsal soft tissue swelling of the wrist. There are vascular calcifications. XR/XR hand LT min 3V IMPRESSION: 1. No acute fracture or dislocation of the left hand and wrist. 2. Dorsal soft tissue swelling of the wrist. Electronically signed by: Jsa Aponte MD 04/29/2025 11:04 AM EDT
--- NOTE | ~2025-04-29 | XR_ITS ---
EXAMINATION: XR HAND/WRIST, LEFT CLINICAL INFORMATION: fall, pain distal COMPARISON: None available. TECHNIQUE: Three views of the left hand. 4 views of the left wrist. FINDINGS: There is no fracture, dislocation, or suspicious bone lesion. There is normal alignment. 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 Carpal bones appear intact and normally aligned. Mild dorsal soft tissue swelling of the wrist. There are vascular calcifications. XR/XR wrist LT min 3V IMPRESSION: 1. No acute fracture or dislocation of the left hand and wrist. 2. Dorsal soft tissue swelling of the wrist. Electronically signed by: Jas Aponte MD 04/29/2025 11:04 AM EDT
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
[2025-04-29 10:45] VITALS: BP 145/73; PULSE 104; RESP 18; TEMP 36.8; O2SAT 96; BMI 25.2
[2025-04-29 11:00] VITALS: BP 139/76; PULSE 82; RESP 16; TEMP 36.8; O2SAT 95
[2025-04-29 12:12] VITALS: BP 144/79; PULSE 82; RESP 16; TEMP 37.1; O2SAT 95
[2025-04-29 14:12] VITALS: BP 144/79; PULSE 82; RESP 16; TEMP 37.1; O2SAT 95
== END 2025-04-29 14:13 | disposition home or self-care (01) ==
PROVIDERS: Emergency Provider Emergency Medicine; PCP General Practice
DX: S09.93XA Unspecified injury of face, initial encounter (principal); S60.222A Contusion of left hand, initial encounter; S49.92XA Unspecified injury of left shoulder and upper arm, initial encounter; M25.532 Pain in left wrist; M25.442 Effusion, left hand; R51.9 Headache, unspecified; E11.9 Type 2 diabetes mellitus without complications; I10 Essential (primary) hypertension; M79.10 Myalgia, unspecified site; X58.XXXA Exposure to other specified factors, initial encounter; Y93.01 Activity, walking, marching and hiking; W01.0XXA Fall on same level from slipping, tripping and stumbling without subsequent striking against object, initial encounter; Y92.410 Unspecified street and highway as the place of occurrence of the external cause; Y99.8 Other external cause status; Z79.899 Other long term (current) drug therapy; Z79.4 Long term (current) use of insulin
CPT/HCPCS: 70450; 70486; 73110; 73130; 96372; 99284; J1885

== ENCOUNTER → 2025-04-29 10:45 | Outpatient (BNV) | payer OTHER, SELFPAY | PROVIDERS: PCP General Practice; Visit Provider Radiology Diagnostic Radiology | DX: Z04.3 Encounter for examination and observation following other accident (principal); S09.90XA Unspecified injury of head, initial encounter; M25.532 Pain in left wrist; W19.XXXA Unspecified fall, initial encounter | CPT/HCPCS: 70450; 70486; 73110; 73130 ==

== ENCOUNTER 2025-05-11 10:58 | Outpatient (AMB) | payer OTHER, SELFPAY ==
[2025-05-11 11:12] VITALS: BP 134/70; PULSE 98; O2SAT 98; BMI 25.7
--- NOTE | 2025-05-11 11:12 | A.OFFVIS_ITS ---
Vital Signs 05/11/25 11:12 Height 5 ft 4 in Weight 150 lb BMI 25.7 BP 134/70 Blood Pressure Location Rt brachial Position Sitting Pulse 98 Pulse Source Pulse Oximeter Pulse Oximetry (%) 98 Oxygen Delivery Method Room Air Intake Visit Reasons: 2 mo f/u Intake Note: ESTABLISHED PATIENT for mgmt of hepatic abn + GERD. Chief Complaint; Pt denies any new GI changes or sx. Confirms her Rx are working as intended. Process Improvement Analyst Required: Yes Process Improvement Analyst Services: Process Improvement Analyst Present Process Improvement Analyst Name: [facility] (Provider only) Information Interpreted: clinical only Accompanied by: Self / Same As Patient Allergies Penicillins (PENICILLINS) Allergy (Intermediate, Verified 05/11/25 11:12) ITCH/RASH sulfamethoxazole (From Bactrim) Allergy (Intermediate, Verified 05/11/25 11:12) RASH sumatriptan Allergy (Intermediate, Verified 05/11/25 11:12) rash trimethoprim (From Bactrim) Allergy (Intermediate, Verified 05/11/25 11:12) RASH pepperoni Allergy (Intermediate, Uncoded 05/11/25 11:12) rash Medication List - Last Reconciled 05/11/25 by Bianca Oneal, DATA BASE ADMINISTRATOR-BC atorvastatin 1 tab PO BEDTIME benztropine 0.5 mg PO BEDTIME blood sugar diagnostic (FreeStyle Lite Strips) As directed blood sugar diagnostic (FreeStyle Lite Strips) As directed 3 times a day blood-glucose sensor (FreeStyle Khalif 3 Plus Sensor device) As directed change every 14 days calcium polycarbophil (Fiber-Lax) 625 mg PO cetirizine 10 mg PO BID cholecalciferol (vitamin D3) 50 mcg PO DAILY 30 days clonazepam 1 mg PO BEDTIME PRN empagliflozin (Jardiance) 10 mg PO QAM 30 days ibuprofen 400 mg PO TID PRN insulin aspart U-100 (Novolog FlexPen U-100 Insulin aspart) 20 units breakfast, 18 units lunch and supper 30 days insulin degludec (Tresiba FlexTouch U-200 insulin) 52 units (0.26 mL) subcut DAILY 30 days lamotrigine 25 mg PO DAILY lancets (TRUEplus Lancets) As directed losartan 50 mg PO DAILY metformin ER 1,000 mg (2 x 500 mg) PO DAILY 30 days mirtazapine 7.5 mg PO BEDTIME multivitamin 1 tab PO DAILY pantoprazole 40 mg PO DAILY pen needle, diabetic (UltiCare Pen Needle) As directed twice a day plecanatide (Trulance) 3 mg PO DAILY prazosin 5 mg PO BEDTIME risperidone 0.5 mg PO DAILY sennosides (senna) 8.6 mg PO QAM trazodone 2 tabs PO BEDTIME HPI HPI 2 mo f/u: Details: LAST VISIT: Acid reflux Fatty liver Chronic constipation Abdominal pain Plan Poorly controlled diabetes. Discussed with patient the importance of trying to follow recommendation from Endocrinology. Continue pantoprazole. Avoid dietary triggers in late night snacking. Staying at any 3 hours after meals discussed with patient. Patient to try Trulicity, will stop Linzess. Increase fluid intake and activity to promote better bowel motility. Patient will follow-up in the office in 3 months, sooner on as needed basis. She is agreeable to this plan and verbalizes understanding of instructions. He was given the opportunity to ask questions and all questions answered. ? Thank you for allowing me to participate in her care New plecanatide (Trulance) 3 mg PO DAILY 30 tabs 3RF K59.09 pantoprazole take one tablet half an hour before breakfast 40 mg PO DAILY 30 tabs 2RF K21.9 Discontinued pantoprazole take one tablet half an hour before breakfast Discontinued Reason: Patient no longer taking 40 mg PO DAILY 30 tabs 2RF K21.9 TODAY'S VISIT Patient reports that taking Trulicity helping her moving her bowels better. Acid reflux is suppressed with pantoprazole patient denies any dyspepsia, dysphagia or odynophagia. Denies any melena, hematochezia, unintentional weight loss or ribbon like stools. Patient has appointment with her cloud services architect next month. Last colonoscopy in 2023 and recommended to repeat colonoscopy in 6-12 months due to suboptimal prep. Patient denies any other GI concerning symptoms. [facility] Medical History Fatty liver Nephropathy Pre-ulcerative corn or callous Abnormal colonoscopy Colon adenomas Nausea & vomiting Irritable bowel syndrome with constipation History of hyperopia Gastroenteritis Memory impairment Hyperlipidemia Hypertension Myalgia and myositis Urinary incontinence Diabetes mellitus Depression Anxiety Insomnia History of lipoma Surgical History History of carpal tunnel surgery Hx of cataract extraction Hx of right breast biopsy Hx of colonoscopy History of esophagogastroduodenoscopy (EGD) Hx of foot surgery History of back surgery Hx of total hysterectomy Family History Mother Diabetes Father Prostate cancer Social History Household Members: None Household Members Other:: none Housing: Apartment Do you presently have visiting nurse or other home services: Yes (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[employer]) Alcohol intake: never Patient Tobacco Use Status: Never used Tobacco service: No Current occupational status: disabled Sexual orientation: Straight/Heterosexual Review of Systems Const Denies weight gain and Denies weight loss ENT Reports no additional complaints, Denies dysphagia and Denies odynophagia Card Reports no additional complaints Resp Reports no additional complaints GI Denies abdominal pain, Denies belching, Denies melena, Reports bloating, Denies change in bowel habits, Denies constipation, Denies dysphagia, Denies excessive flatus, Denies dyspepsia, Denies heartburn, Denies diarrhea, Denies loose stools, Denies nausea, Denies odynophagia and Denies vomiting Reports no additional complaints Musc Reports no additional complaints Neuro Reports no additional complaints Psych Reports no additional complaints Endo Reports no additional complaints Physical Exam Vital Signs: Last Vital Signs Pulse 98 05/11/25 11:12 BP 134/70 05/11/25 11:12 Pulse Ox 98 05/11/25 11:12 Oxygen Delivery Method Room Air 05/11/25 11:12 BMI result Body Mass Index 25.7 Const General: healthy appearing, no acute distress and well developed Nutritional Appearance: well nourished Orientation/consciousness: patient oriented x3 Resp Effort & Inspection: normal respiratory effort, able to speak in complete sentences, no tracheal deviation and symmetric chest movement Auscultation: clear to auscultation bilaterally Cardio Rate: regular rate GI Inspection: Yes normal to inspection and No distended Palpation (GI): Soft to palpation, not firm, nontender and No hepatosplenomegaly present Auscultation: normal bowel sounds General: Yes no CVA tenderness Back/Spine/Pelvis Back: no CVA tenderness Skin General skin exam: elasticity normal, turgor normal and dry skin Neuro General: patient oriented x3 Psych Appearance: grossly normal Mental Status: mental status grossly normal Assessment & Plan Assessment & Plan (1) Fatty liver: Code(s): K76.0 - Fatty (change of) liver, not elsewhere classified Category: Medical (2) Nausea & vomiting: Code(s): R11.2 - Nausea with vomiting, unspecified Category: Medical Qualifiers: Vomiting type: unspecified Qualified Code(s): R11.2 - Nausea with vomiting, unspecified (3) Acid reflux: Code(s): K21.9 - Gastro-esophageal reflux disease without esophagitis Category: Medical Qualifiers: Esophagitis presence: esophagitis presence not specified Qualified Code(s): K21.9 - Gastro-esophageal reflux disease without esophagitis (4) Chronic constipation: Code(s): K59.09 - Other constipation Category: Medical (5) Abdominal pain: Code(s): R10.9 - Unspecified abdominal pain Category: Medical Qualifiers: Abdominal location: generalized Qualified Code(s): R10.84 - Generalized abdominal pain Plan Will rule out any autoimmune disorders. Patient was encouraged to get her blood work done today. Will repeat abdominal ultrasound with liver elastography. Patient will continue taking Trulance daily. Continue pantoprazole. Avoid dietary triggers and late night snacking. Staying upright for minimum 3 hours after meals discussed with patient. I will see patient in 3 months and we will discuss going for colonoscopy and endoscopy. She is agreeable to this plan and verbalizes understanding of instructions. She was given the opportunity to ask questions and all questions answered. Thank you for allowing me to participate in her care Orders: Orders Platelet Count Today K76.0 - Fatty (change of) liver, not elsewhere classified C Reactive Protein Today K58.9 - Irritable bowel syndrome, unspecified Smooth Muscle Antibody Today R79.89 - Other specified abnormal findings of blood chemistry Liver Fibrosis Pnl Today K76.0 - Fatty (change of) liver, not elsewhere classified Liver Panel Today R74.01 - Elevation of levels of liver transaminase levels US abdomen aguilar w elastography Today K76.0 - Fatty (change of) liver, not elsewhere classified Alpha Fetoprotein Today R79.89 - Other specified abnormal findings of blood chemistry Prothrombin Time INR Today R74.8 - Abnormal levels of other serum enzymes GRAY Reflex Titer and Pattern Today R74.8 - Abnormal levels of other serum enzymes Ceruloplasmin Today R79.89 - Other specified abnormal findings of blood chemistry Transglutaminase IgA Today R10.9 - Unspecified abdominal pain Ferritin Today R74.8 - Abnormal levels of other serum enzymes Mitochondrial Antibody Today R79.89 - Other specified abnormal findings of blood chemistry Gamma Glutamyl Transpeptidase Today R74.8 - Abnormal levels of other serum enzymes Medications: New simethicone 125 mg PO BID-QID PRN 120 caps 3RF abdominal distention Coding Level of Care Code Est Pt Level 4 (74903) Complex EM visit Add On G2211 Diagnoses Fatty liver K76.0 Nausea and vomiting, unspecified vomiting type R11.2 Vomiting type: unspecified Gastroesophageal reflux disease, unspecified whether esophagitis present K21.9 Esophagitis presence: esophagitis presence not specified Chronic constipation K59.09 Generalized abdominal pain R10.84 Abdominal location: generalized Time Spent (min) 35 Comment 25 minutes spent with patient and additional 10 minutes spent reviewing her rec ords
--- OUTSIDE RECORDS SUMMARY | 2025-05-11 14:07 | XMS_ITS | Encounter Summary ---
Author Organization [employer] [facility] Address [address] 7t [place] [address] Care Team Providers Care Shingle Packer Name Role Phone Quang Vasques MD Primary Care Provider Karen Kang MD Primary Care Provider [phone] Encounter Details Date Type Department Care Team (Latest Contact Info) Description 09/04/2018 Abstract [facility] CONVERSIONS Dental, Provider, DDS Social History [...] Care Team (Late st Contact Info) Description 07/01/2025 1:30 PM EST Office Visit [facility] MEDICINE [address] [place] [address] Karen Guthrie MD [address] [place] [address] 07/25/2025 9:30 AM EST Office Visit [facility] OPTOMETRY [address] [place] [address] Yocasta Jones, OD [address] [place] [address] documented as of this encounter Visit Diagnoses Not on filedocumented in this encounter Care Teams Shingle Packer Relationship Specialty Start Date End Date Quang Vasques MD PCP - General Family Medicine 02/15/20 07/14/22 Karen Guthrie MD [address] [place] [id number] PCP - General Family Medicine 07/15/22 documented as of this encounter
--- OUTSIDE RECORDS SUMMARY | 2025-05-11 14:07 | XMS_ITS | Encounter Summary ---
Author Organization [employer] Address [address] 7[address] [place] [address] Care Team Providers Care Vice President Of Recruiting Name Role Phone Karen Guthrie MD Primary Care Provider [phone] Reason for Visit * Reason Onset Date Comments Med Refill 04/22/2024 Encounter Details Date Type Department Care Team ([facility] st Contact Info) Description 04/22/2024 Telephone [facility] MEDICINE [address] [place], [place] [phone] Karen Guthrie MD [address] [place], [place] [phone] Med Refill Social History Tobacco Use Types [...] EDT Medication was sent to [facility] on 03/10/24 with 3 refills. * Telephone Encounter - Harry Deal - 04/22/2024 9:27 AM EDT TC from pt requesting medication refill. Medications needing refill : Continuous Glucose Sensor (FreeStyle Khalif 2 Sensor) [facility] To be sent to: [facility] documented in this encounter Plan of Treatment Upcoming Encounters Date Type Department Care Team (Late st Contact Info) Description 07/01/2025 1:30 PM EST Office Visit [facility] MEDICINE [address] [place] [address] Karen Guthrie MD [address] [place] [address] 07/25/2025 9:30 AM EST Office Visit [facility] OPTOMETRY [address] [place] [address] Yocasta Jones, JAMIE [address] [place] [address] documented as of this encounter Visit Diagnoses Not on filedocumented in this encounter Additional Health Concerns Assessment Noted Time PHQ-9 Depression Total Score: 14 024 1:04 PM EDT documented as of this encounter Care Teams Vice President Of Recruiting Relationship Specialty Start Date End Date Karen Guthrie MD [address] [place] [address] PCP - General Family Medicine 07/15/22 documented as of this encounter
--- OUTSIDE RECORDS SUMMARY | 2025-05-11 14:07 | XMS_ITS | Encounter Summary ---
Author Organization [employer] Address [address] [place] [address] Care Team Providers Care Food Processor Name Role Phone Karen Guthrie MD Primary Care Provider [phone] Reason for Visit * Reason Comments Med Refill Encounter Details Date Type Department Care Team ([facility] st Contact Info) Description 01/31/2024 Refill [facility] MEDICINE [address] [place], [place] [phone] Karen Guthrie MD [address] [place], [place] [phone] Vitamin D deficiency Social History Tobacco Use [...] Description 07/01/2025 1:30 PM EST Office Visit [facility] MEDICINE [address] [place] [address] Karen Guthrie MD [address] [place] [address] 07/25/2025 9:30 AM EST Office Visit [facility] OPTOMETRY [address] [place] [address] Robert, Yocasta, OD [address] [place] [address] documented as of this encounter Visit Diagnoses Diagnosis Vitamin D deficiency documented in this encounter Additional Health Concerns Assessment Noted Time PHQ-9 Depression Total Score: 14 024 1:04 PM EDT documented as of this encounter Care Teams Food Processor Relationship Specialty Start Date End Date Karen Guthrie MD [address] [place] [address] [phone] PCP - General Family Medicine 07/15/22 documented as of this encounter
--- OUTSIDE RECORDS SUMMARY | 2025-05-11 14:07 | XMS_ITS | Encounter Summary ---
Author Organization [employer] Address [address] [facility] 7t [place] [address] Care Team Providers Care Bulb Weeder Name Role Phone Karen Guthrie MD Primary Care Provider [phone] Encounter Details Date Type Department Care Team (Late Contact Info) Description 01/10/2023 Orders Only [facility] MEDICINE [address] [place] [address] [phone] Karen Guthrie MD [address] [place] [address] [phone] Vomiting, unspecified vomiting type, unspecified whether nausea [...] Department Care Team (Late Contact Info) Description 07/01/2025 1:30 PM EST Office Visit [facility] MEDICINE [address] [place] [address] [phone] Karen Guthrie MD [address] [place] [address] [phone] 07/25/2025 9:30 AM EST Office Visit [facility] OPTOMETRY [address] [place] [address] Yocasta Jones, OD [address] [place] [address] Scheduled Orders Name Type Priority Associated Diagnoses Orde r Schedule Basic Metabolic Panel Lab Routine Vomiting, unspecified vomiting type, unspecified whether nausea present Expected: 01/10/2023 (Approximate), Expires: 01/11/2024 documented as of this encounter Visit Diagnoses Diagnosis Vomiting, unspecified vomiting type, unspecified whether nausea present- Primary documented in this encounter Care Teams Bulb Weeder Relationship Specialty Start Date End Date Karen Guthrie MD [address] [place] [address] PCP - General Family Medicine 07/15/22 documented as of this encounter
--- OUTSIDE RECORDS SUMMARY | 2025-05-11 14:07 | XMS_ITS | Encounter Summary ---
Author Organization [employer] Address [address] [facility] 7t [place] [address] Care Team Providers Care Outreach Rep Name Role Phone Karen Guthrie MD Primary Care Provider [phone] Encounter Details Date Type Department Care Team (Late st Contact Info) Description 12/16/2022 Orders Only [facility] MEDICINE [address] [place] [address] Karen Guthrie MD [address] [place], [place] [phone] Epigastric pain (Primary Dx) Social History Tobacco [...] Description 07/01/2025 1:30 PM EST Office Visit [facility] MEDICINE [address] [place] [phone] Karen Guthrie MD [address] [place] [address] 07/25/2025 9:30 AM EST Office Visit [facility] OPTOMETRY [address] [place] [address] Yocasta Jones, OD [address] [place] [address] documented as of this encounter Procedures Procedure Name Priority Date/Time Associated Diagnosis Comments GLUCOSE, WHOLE BLOOD Routine 01/01/2023 10:57 AM EDT Epigastric pain GLUCOSE, WHOLE BLOOD Routine 01/01/2023 10:32 AM EDT Epigastric pain documented in this encounter Results * Glucose, Whole Blood (01/01/2023 10:57 AM EDT) Glucose, Whole Blood 95 60 - 115 mg/dL [facility] Comment:METER #: [id number] Testing performed in the Endocrinology Department [address] , [address], [facility]. 01/01/2023 10:5 7 AM EDT 01/01/2023 11:05 AM EDT us [facility] External Provider LAB BLO OD ORDERABLES Final Result [facility] [address] [place] [phone] * Glucose, Whole Blood (01/01/2023 10:32 AM EDT) Glucose, Whole Blood 60 60 - 115 mg/dL [facility] Comment:METER #: [id number] 5Testing performed in the Endocrinology Department [address] , [address], [place]. 01/01/2023 10:3 2 AM EDT 01/01/2023 10:38 AM EDT us [facility] External Provider LAB BLO OD ORDERABLES Final Result [facility] [address] [place] [address] [phone] documented in this encounter Visit Diagnoses Diagnosis Epigastric pain- Primary Abdominal pain, epigastric documented in this encounter Care Teams Outreach Rep Relationship Specialty Start Date End Date Karen Guthrie MD [address] [place] [phone] PCP - General Family Medicine 07/15/22 documented as of this encounter
--- OUTSIDE RECORDS SUMMARY | 2025-05-11 14:07 | XMS_ITS | Encounter Summary ---
Author Organization [employer] Address [address] [place] [address] Care Team Providers Care Reversal Print Inspector Name Role Phone Karen Guthrie MD Primary Care Provider [phone] Reason for Visit * Reason Comments Med Refill Encounter Details Date Type Department Care Team ([facility] st Contact Info) Description 10/01/2023 Refill [facility] MEDICINE [address] [place], [place] [phone] Karen Guthrie MD [address] [place], [place] [phone] Type 2 diabetes mellitus with other specified complication, unspecified whether nursing home insulin use ([facility]) Social History Tobacco Use Types [...] Description 07/01/2025 1:30 PM EST Office Visit [facility] MEDICINE [address] [place] [address] Karen Guthrie MD [address] [place] [address] 07/25/2025 9:30 AM EST Office Visit [facility] OPTOMETRY [address] [place] [address] Robert, Yocasta, OD [address] [place] [address] documented as of this encounter Visit Diagnoses Diagnosis Type 2 diabetes mellitus with other specified complication, unspecified whether longwall headgate operator insulin use ([facility]) documented in this encounter Care Teams Reversal Print Inspector Relationship Specialty Start Date End Date Karen Guthrie MD [address] [place] [address] PCP - General Family Medicine 07/15/22 documented as of this encounter
--- OUTSIDE RECORDS SUMMARY | 2025-05-11 14:07 | XMS_ITS | Encounter Summary ---
Author Organization [employer] Address [address] [facility] 7t [place] [address] Care Team Providers Care Retail Sales Professional Name Role Phone Karen Guthrie MD Primary Care Provider [phone] Reason for Referral * Imaging (STAT) - Closed Specialty Diagnoses / Procedures Referred By Contac t Referred To Contact Diagnoses LUQ pain Epigastric pain Procedures CT Abdomen Pelvis w/ Contrast Karen Guthrie MD [address] [place] [address] Phone: tel: fax: [facility] [address] [place] [address] Phone: tel: fax: Referral ID Status Reason Start Date Expiration Date Visits Re quested Visits Authorized [id number] Closed 01/02/2023 01/02/2024 1 1 Encounter Details Date Type Department Care Team (Late st Contact Info) Description 01/02/2023 Orders Only [facility] MEDICINE [address] [place], [place] [phone] Karen Guthrie MD [address] [place] [address] LUQ pain (Primary Dx); Epigastric [...] Description 07/01/2025 1:30 PM EST Office Visit [facility] MEDICINE [address] [place] [address] Karen Guthrie MD [address] [place] [address] 07/25/2025 9:30 AM EST Office Visit [facility] OPTOMETRY [address] [place] [address] Robert, Yocasta, OD [address] [place] [address] Scheduled Orders Name Type Priority Associated Diagnoses Orde r Schedule CT Abdomen Pelvis w/ Contrast Imaging STAT LUQ pain Epigastric pain Expected: 01/02/2023, Expires: 01/03/2024 documented as of this encounter Visit Diagnoses Diagnosis LUQ pain- Primary Abdominal pain, left upper quadrant Epigastric pain Abdominal pain, epigastric documented in this encounter Care Teams Retail Sales Professional Relationship Specialty Start Date End Date Karen Guthrie MD [address] [place] [address] PCP - General Family Medicine 07/15/22 documented as of this encounter
--- OUTSIDE RECORDS SUMMARY | 2025-05-11 14:07 | XMS_ITS | Encounter Summary ---
Author Organization [employer] Address [address] [facility] 7[address] [place] [address] Care Team Providers Care Aircraft Cleaner Name Role Phone Karen Guthrie MD Primary Care Provider [phone] Encounter Details Date Type Department Care Team (Late Contact Info) Description 04/18/2023 Orders Only [facility] MEDICINE [address] [place], [place] [phone] Karen Guthrie MD [address] [place] [address] [phone] Social History Tobacco Use Types Packs/Day Years [...] Description 07/01/2025 1:30 PM EST Office Visit [facility] MEDICINE [address] [place], [place] [phone] Karen Guthrie MD [address] [place], [place] [phone] 07/25/2025 9:30 AM EST Office Visit [facility] OPTOMETRY [address] [place] [address] [phone] Yocasta Jones, OD [address] [place] [address] documented as of this encounter Visit Diagnoses Not on filedocumented in this encounter Care Teams Aircraft Cleaner Relationship Specialty Start Date End Date Karen Guthrie MD [address] [place] [address] PCP - General Family Medicine 07/15/22 documented as of this encounter
--- OUTSIDE RECORDS SUMMARY | 2025-05-11 14:07 | XMS_ITS | Encounter Summary ---
Author Organization [employer] Address [address] [facility] [address] [place] [address] Care Team Providers Care Chicken Hanger Name Role Phone Karen Guthrie MD Primary Care Provider [phone] Encounter Details Date Type Department Care Team (Late Contact Info) Description 01/31/2023 Orders Only [facility] MEDICINE [address] [place] [address] Karen Guthrie MD [address] [place], [place] [phone] Constipation, unspecified constipation type (Primary Dx) Social [...] 1:30 PM EST Office Visit [facility] MEDICINE [address] [place] [address] Karen Guthrie MD [address] [place] [address] [phone] 07/25/2025 9:30 AM EST Office Visit [facility] OPTOMETRY [address] [place], [place] [phone] Yocasta Jones, OD [address] [place], [place] [phone] documented as of this encounter Visit Diagnoses Diagnosis Constipation, unspecified constipation type- Primary documented in this encounter Care Teams Chicken Hanger Relationship Specialty Start Date End Date Karen Guthrie MD [address] [place], [place] [phone] PCP - General Family Medicine 07/15/22 documented as of this encounter
--- OUTSIDE RECORDS SUMMARY | 2025-05-11 14:07 | XMS_ITS | Encounter Summary ---
Author Organization [employer] Address [address] [place] [address] Care Team Providers Care [employer] Executive Director Name Role Phone Karen Guthrie MD Primary Care Provider [phone] Encounter Details Date Type Department Care Team ([facility] Contact Info) Description 09/23/2024 Orders Only [facility] MEDICINE [address] [place] [address] Karen Guthrie MD [address] [place] [address] Social History Tobacco Use Types Packs/Day Years [...] Description 07/01/2025 1:30 PM EST Office Visit [facility] MEDICINE [address] [place] [address] Karen Guthrie MD [address] [place] [address] 07/25/2025 9:30 AM EST Office Visit [facility] OPTOMETRY [address] [place] [address] Robert, Yocasta, OD [address] [place] [address] documented as of this encounter Visit Diagnoses Not on filedocumented in this encounter Additional Health Concerns Assessment Noted Time PHQ-9 Depression Total Score: 14 024 1:04 PM EDT documented as of this encounter Care Teams [employer] Executive Director Relationship Specialty Start Date End Date Karen Guthrie MD [address] [place] [phone] PCP - General Family Medicine 07/15/22 documented as of this encounter
--- OUTSIDE RECORDS SUMMARY | 2025-05-11 14:08 | XMS_ITS | Clinical Summary ---
Author Organization [facility] [employer] Address [address] [place] [address] Care Team Providers Care Ferryboat Operator Helper Name Role Phone Karen Guthrie MD Primary Care Provider [phone] Allergies Active Allergy Reactions Criticality Noted Date Comments Hermilo Inhibitors Cough 05/18/2018 Aspirin 08/22/2010 Other reaction(s): Stomach Upset, unspecified Magnesium Sulfate 01/31/2025 Omeprazole 12/08/2014 Other reaction(s): DIZZINESS/SHAKING , DIZZINESS/SHAKING [...] bedtime. 11/22/19 23 Active Continuous Blood Gluc Dental Office Receptionist ([employer] [place] [place]) device USE TO TEST BLOOD SUGAR THREE TIMES DAILY AND NEEDED 1 each 04/18/20 23 Active benztropine (Cogentin) 0.5 MG tablet Take 0.5 mg by mouth at bedtime. 03/15/20 23 Active NovoLOG FLEXPEN 100 UNIT/ML penIndications:Typ e 2 diabetes mellitus with other specified complication, with long-term current use of insulin ([facility]) INJECT 12 UNITS SUBCUTANEOUSLY WITH [...] DAYS 2 each 3 03/10/20 24 Active omeprazole (PriLOSEC) [address] [...] mellitus with other specified complication, unspecified whether emt intermediate insulin use ([facility]) TEST BLOOD SUGAR 4 TO 6 TIMES PER DAY 100 strip 11 11/13/19 25 Active insulin pen needle (BD Pen Needle Inocencia U/F) 32G x 4 mm miscIndications:Ty pe 2 diabetes mellitus with other specified complication, unspecified whether assisted insulin use ([facility]) USE DIRECTED TO INJECT DAILY 100 each 5 12/01/19 25 Active Multiple Vitamin (Multivitamin) tablet TAKE 1 TABLET BY MOUTH EVERY MORNING WITH FOOD 90 tablet 3 12/08/19 25 Active Bisacodyl EC 5 MG EC tablet take 2 tablets by mouth every day at bedtime 12/08/19 25 Active acetaminophen (Tylenol 8 Hour) 650 MG ER tablet Take 1 tablet (650 mg) by mouth every 8 (eight) hours if needed for mild pain. Do not crush, chew, or split. 30 tablet 02/09/20 25 Active TRUEplus Lancets 33G misc USE DIRECTED TO TEST BLOOD SUGAR 4 TO SIX TIMES DAILY 100 each 11 03/02/20 25 Active Fiber-Lax 625 MG tablet TAKE 1 TABLET BY MOUTH TWICE DAILY IN THE MORNING AND IN THE EVENING 180 tablet 3 04/04/20 25 Active Active Problems Problem Noted Date Diagnosed Date Abdominal bloating 04/13/2025 Indigestion 04/13/2025 Muscle pain 04/13/2025 Depression 04/13/2025 Hypertension 04/13/2025 Obesity 04/13/2025 Constipation 04/13/2025 Arthralgia of shoulder 04/13/2025 Diabetes mellitus 04/13/2025 Dysuria 04/13/2025 Pain, dental 02/08/2025 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 05/31/2024 Other constipation [...] Cscope in 2020 at [facility] Did not get scheduled, overdue In the [...] continue insulin titration with [facility] Endo BMP: Lab Results Component Value Date [...] Encounters Date Type Department Care Team Description 04/29/2025 Orders Only [facility] External Provider, [facility] 04/27/2025 Telephone [facility] [address] [place] [address] Karen Guthrie MD Nurse Triage (fall) 04/27/2025 Travel 04/13/2025 9:00 AM EDT Office Visit [facility] [address] [place] [address] Alda Tian, DDS Open fracture of tooth, initial encounter (Primary Dx); Bruxism 04/03/2025 Refill [facility] [address] [place] [address] Karen Guthrie MD 03/02/2025 Refill [facility] [address], [place] [phone] Karen Guthrie MD 02/08/2025 11:30 AM EDT Office Visit [facility] [address] [place] [address] Pineda Harvey, KEARA Pain, dental (Primary Dx) from Last 3 Months Immunizations Immunization Administration [...] Sign Reading Time Taken Comments Blood Pressure 118/78 04/13/2025 8:34 AM EDT Pulse 88 11/05/2024 10:32 AM EDT Temperature 36.7 C (98.1 F) 11/05/2024 10:32 AM EDT Respiratory Rate 16 11/05/2024 10:32 AM EDT [...] 07/01/2025 1:30 PM EST Office Visit [facility] [address], [place] [phone] Karen Guthrie MD [address] [place], [place] [phone] 07/25/2025 9:30 AM EST Office Visit [facility] [address] [place], [place] [phone] RobertYocasta king, OD [address] [place], [place] [phone] Health Maintenance Due Date Last Done Comments CT Colonography 1955 Colonoscopy 1955 FIT 1955 Sigmoidoscopy 1955 RSV Patients and Patients Aged 60 years or older (1 - Risk 60-74 years 1-dose series) 2016 Dental X-Ray: Full Mouth 01/09/2021 01/08/2018 Dental Prophylaxis 02/13/2022 08/14/2021, 0 03/03/2019, 09/04/2018, Additional history exists Dental Oral Exam 05/20/2022 11/16/2021, , 09/07/2020, Additional history exists Dental X-Ray: Bitewings 11/17/2022 11/17/19, 09/07/2020, 01/08/2018, Additional history exists FOBT 04/02/2024 04/02/2023 Diabetes: Urine Protein Screening 09/22/2024 09/22/2023, 03/22/2020 Diabetes: Hemoglobin A1C 02/05/2025 025, 12/19/2023, 09/22/2023, Additional history exists COVID-19 Vaccine ( season) 2025 05/27/2024, 01/08/2022, 06/27/2021, Additional history exists Influenza Vaccine (#1) 2025 , 05/19/2023, 05/28/2022, Additional history exists Depression Monitoring 05/08/2025 11/05/2024, 025 Diagnostic Breast Imaging 08/02/20252024, 12/23/2024, 12/01/2024, Additional history exists Alcohol/Substance Use Screening 10/18/2025 10/18/2024 SDOH Screening 10/29/2025 10/29/2024 Diabetes: Foot Exam 11/05/2025 11/05/2024 Lipid Panel 11/05/2025 11/05/2024, 08/26, 03/22/2020 Eye Exam 01/21/2026 01/21/2025, 12/25, 01/21/2025, Additional history exists Colorectal Cancer Screening 04/02/2026 FIT DNA/Cologuard 04/02/2026 04/02/2023 Tobacco Screening 04/13/2026 04/13/2025 DTaP/Tdap/Td Vaccines (2 - Td or Tdap) 01/24/2027 01/24/2017 Zoster Vaccines Completed 03/08/2022, 01/01/2022 Hepatitis B Vaccines Completed 04/02/2022, 03/07/2017, 01/24/2017 Pneumococcal Vaccine: 50+ Years Completed 04/02/2022, 05/18/2018 Hepatitis C Screening Completed 11/05/2024 HIB Vaccines [...] Procedure Name Priority Date/Time Associated Diagnosis Comments CT SINUS FACIAL BONES WO CONTRAST Routine 04/29/2025 10:[address] HEAD WO CONTRAST Routine 04/29/2025 1 0:58 AM EDT XR WRIST 3+ VIEWS LEFT Routine 10:57 AM EDT XR HAND 3+ VIEWS LEFT Routine 04/29/2025 10:57 AM EDT CASE PRESENTATION, DETAILED AND EXTENSIVE TREATMENT PLANNING Routine 04/13/2025 9:00 AM EDT INTRAORAL - PERIAPICAL FIRST RADIOGRAPHIC IMAGE Routine 04/13/2025 9:00 AM EDT CONSULTATION - DIAGNOSTIC SERVICE PROVIDED BY DENTIST OR PHYSICIAN OTHER THAN REQUESTING DENTIST OR PHYSICIAN Routine 04/13/2025 9:00 AM EDT INTRAORAL - PERIAPICAL FIRST RADIOGRAPHIC IMAGE Routine 02/08/2025 11:30 AM EDT CASE PRESENTATION, DETAILED AND EXTENSIVE TREATMENT PLANNING Routine 02/08/2025 11:30 AM EDT PALLIATIVE (EMERGENCY) TREATMENT OF DENTAL PAIN - MINOR PROCEDURE Routine 02/08/2025 11:30 AM EDT BI MAMMOGRAM DIAGNOSTIC TOMOSYNTHESIS BILATERAL Routine 01/31/2025 9:30 AM EDT HEPATITIS C AB W/REFL TO HCV RNA, [...] mellitus with other specified complication, unspecified whether emt intermediate insulin use (CMS/HCC) HM FIT DNA/COLOGUARD CANCER SCREENING Routine 04/02/2023 BITEWINGS - 4 RADIOGRAPHIC IMAGES Routine 11/16/2021 12:00 AM EDT PERIODIC ORAL EVALUATION - ESTABLISHED PATIENT Routine 11/16/2021 12:00 AM EDT PROPHYLAXIS - ADULT Routine 08/14/2021 1 2:00 AM EST INTRAORAL - COMPLETE SERIES OF RADIOGRAPHIC IMAGES Routine 01/08/2018 12:00 AM EDT from Last 3 Months or Most Recently Relevant to Health Maintenance Results * CT Sinus Facial Bones w/o Contrast (04/29/2025 10:58 AM EDT) Anatomical Region Laterality Modality Computed Tomogra phy 04/29/2025 10:5 8 AM EDT Narrative 04/29/2025 11:41 AM EDT [place] [address] CT Scan Report Signed Patient: Jacki Baker I MR#: [id number] : 1955 Acct:[id number] Age/Sex: 69 / F ADM Date: 04/29/25 Loc: HO.ED Attending Dr: Ordering Physician: Minal Limon NP Date of Service: 04/29/25 Procedure(s): CT facial bones wo IV con Accession Number(s): [id number] cc: Karen Guthrie; Minal Limon FIRE CHIEF'S AIDE Report Number: [id number]: Total DLP = 1016.38 mGy-cm Reason for Exam: fell, hit face on ground EXAMINATION: CT MAXILLOFACIAL WITHOUT IV CONTRAST HISTORY: fell, hit face on ground. TECHNIQUE: Serial 1.5 mm helically acquired images were obtained of the facial bones per standard departmental protocol. Coronal and sagittal reformatted images were also obtained and evaluated. One or more of the following techniques was used for dose reduction: Automated exposure control, adjustment of the mA and/or kV according to patient size, use of iterative reconstruction technique. DLP: 374 mGy-cm COMPARISON: There are no prior studies available for comparison. FINDINGS: The facial bones are intact. No fractures are identified. The globes are intact. There is a polyp versus mucous retention cyst in the right maxillary sinus. The visualized portion of the brain is unremarkable. No soft tissue abnormality is identified. CT/CT facial bones wo IV con IMPRESSION: No evidence of fracture of the facial bones. Electronically signed by: Alan Pollack MD 04/29/2025 11:38 AM EDT RP Dictated By: Alan Pollack MD Signed By: <Electronically signed by Alan Pollack MD in OV> 04/29/25 1138 DD/ 1058 TD/TT: 04/29/25 1113 Senior Quality Assurance Analyst: Procedure Note Donotuseinterpreter, Image - 04/29/[address] [address] [address] Scan Report Signed Patient: Jacki Baker [facility]#: [id number] : 1955cct:[id number] Age/Sex: 69 / FADM Date: 04/29/25 Loc: HO.ED Attending Dr: Ordering Physician: Minal Limon NP Date of Service: 04/29/25 Procedure(s): CT facial bones wo IV con Accession Number(s): [id number] cc: Karen Guthrie; Minal Limon NP Report Number: [id number]: Total DLP = 1016.38 mGy-cm Reason for Exam: fell, hit face on ground EXAMINATION: CT MAXILLOFACIAL WITHOUT IV CONTRAST HISTORY: fell, hit face on ground. TECHNIQUE: Serial 1.5 mm helically acquired images were obtained of the facial bones per standard departmental protocol. Coronal and sagittal reformatted images were also obtained and evaluated. One or more of the following techniques was used for dose reduction: Automated exposure control, adjustment of the mA and/or kV according to patient size, use of iterative reconstruction technique. DLP: 374 mGy-cm COMPARISON: There are no prior studies available for comparison. FINDINGS: The facial bones are intact. No fractures are identified. The globes are intact. There is a polyp versus mucous retention cyst in the right maxillary sinus. The visualized portion of the brain is unremarkable. No soft tissue abnormality is identified. CT/CT facial bones wo IV con IMPRESSION: No evidence of fracture of the facial bones. Electronically signed by: Alan Pollack MD 04/29/2025 11:38 AM EDT RP Dictated By: Alan Pollack MD Signed By: <Electronically signed by Alan Pollack MD in OV> 04/29/25 1138 DD/ 1058 TD/TT: 04/29/25 1113 Senior Quality Assurance Analyst: [facility] External Provider IMG CT PROCEDURES Final Result * CT Head w/o Contrast (04/29/2025 10:58 AM EDT) Anatomical Region Laterality Modality Head, Neck Computed Tomogra phy 04/29/2025 10:5 8 AM EDT Narrative 04/29/2025 11:38 AM EDT [place] [address] CT Scan Report Signed Patient: Jacki Baker I MR#: [id number] : 1955 Acct:[id number] Age/Sex: 69 / F ADM Date: 04/29/25 Loc: HO.ED Attending Dr: Ordering Physician: Minal Limon NP Date of Service: 04/29/25 Procedure(s): CT head/brain wo IV con Accession Number(s): [id number] cc: Karen Guthrie; Minal Limon NP Report Number: [id number]: Total DLP = 0.00 mGy-cm Reason for Exam: fall with head strike EXAMINATION: CT HEAD WITHOUT IV CONTRAST HISTORY: fall with head strike. TECHNIQUE: Unenhanced helical CT of the head was performed per standard departmental protocol. Coronal and sagittal reformats of the head were also evaluated. One or more of the following techniques was used for dose reduction: Automated exposure control, adjustment of the mA and/or kV according to patient size, use of iterative reconstruction technique. DLP: 637 mGy-cm COMPARISON: Comparison is made with the prior examination dated 12/03/2021. FINDINGS: BRAIN: Again seen are scattered periventricular and subcortical white matter hypodensities which are nonspecific, but often seen in the setting of small vessel ischemic disease. There is no mass effect or midline shift. The ventricular system is normal in size and configuration. No intra- or extra-axial fluid collections are identified. SINUSES: The visualized paranasal sinuses are clear. The mastoid air cells and middle ear cavities are well pneumatized. ORBITS: The visualized orbits are unremarkable. BONES/SOFT TISSUES: The extracranial soft tissues are unremarkable. The calvarium is intact. No suspicious lytic or sclerotic lesions. CT/CT head/brain wo IV con IMPRESSION: No acute intracranial abnormality. Electronically signed by: Alan Pollack MD 04/29/2025 11:35 AM EDT RP Dictated By: Alan Pollack MD Signed By: <Electronically signed by Alan Pollack MD in OV> 04/29/25 1135 DD/ 1058 TD/TT: 04/29/25 1113 Senior Quality Assurance Analyst: Procedure Note Donotuseinterpreter, Image - 04/29/[address] [place] [address] [address] Scan Report Signed Patient: Jacki Baker [facility]#: [id number] : 7Acct:[id number] Age/Sex: 69 / FADM Date: 04/29/25 Loc: HO.ED Attending Dr: Ordering Physician: Minal Limon NP Date of Service: 04/29/25 Procedure(s): CT head/brain wo IV con Accession Number(s): [id number] cc: Karen Guthrie; Minal Limon NP Report Number: [id number]: Total DLP = 0.00 mGy-cm Reason for Exam: fall with head strike EXAMINATION: CT HEAD WITHOUT IV CONTRAST HISTORY: fall with head strike. TECHNIQUE: Unenhanced helical CT of the head was performed per standard departmental protocol. Coronal and sagittal reformats of the head were also evaluated. One or more of the following techniques was used for dose reduction: Automated exposure control, adjustment of the mA and/or kV according to patient size, use of iterative reconstruction technique. DLP: 637 mGy-cm COMPARISON: Comparison is made with the prior examination dated 12/03/2021. FINDINGS: BRAIN: Again seen are scattered periventricular and subcortical white matter hypodensities which are nonspecific, but often seen in the setting of small vessel ischemic disease. There is no mass effect or midline shift. The ventricular system is normal in size and configuration. No intra- or extra-axial fluid collections are identified. SINUSES: The visualized paranasal sinuses are clear. The mastoid air cells and middle ear cavities are well pneumatized. ORBITS: The visualized orbits are unremarkable. BONES/SOFT TISSUES: The extracranial soft tissues are unremarkable. The calvarium is intact. No suspicious lytic or sclerotic lesions. CT/CT head/brain wo IV con IMPRESSION: No acute intracranial abnormality. Electronically signed by: Alan Pollack MD 04/29/2025 11:35 AM EDT Dictated By: Alan Pollack MD Signed By: <Electronically signed by Alan Pollack MD in OV> 04/29/25 1135 DD/ 1058 TD/TT: 04/29/25 1113 Senior Quality Assurance Analyst: [facility] External Provider IMG CT PROCEDURES Final Result * XR Hand 3+ Views Left (04/29/2025 10:57 AM EDT) Anatomical Region Laterality Modality Upper Extremities, Hand [facility] 04/29/2025 10:5 7 AM EDT Narrative 04/29/2025 11:07 AM EDT [address] [address] XRay Report Signed Patient: Jacki Baker I MR#: [id number] : 1955 Acct:[id number] Age/Sex: 69 / F ADM Date: 04/29/25 Loc: HO.ED Attending Dr: Ordering Physician: Minal Limon NP Date of Service: 04/29/25 Procedure(s): XR hand LT min 3V Accession Number(s): [id number] cc: Karen Guthrie; Minal Limon NP Reason for Exam: fall, pain dorsal hand EXAMINATION: XR HAND/WRIST, LEFT CLINICAL INFORMATION: fall, pain distal COMPARISON: None available. TECHNIQUE: Three views of the left hand. 4 views of the left wrist. FINDINGS: There is no fracture, dislocation, or suspicious bone lesion. There is normal alignment. 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 Carpal bones appear intact and normally aligned. Mild dorsal soft tissue swelling of the wrist. There are vascular calcifications. XR/XR hand LT min 3V IMPRESSION: 1. No acute fracture or dislocation of the left hand and wrist. 2. Dorsal soft tissue swelling of the wrist. Electronically signed by: Jas Aponte MD 04/29/2025 11:04 AM EDT Dictated By: Jas Aponte MD Signed By: <Electronically signed by Jas Aponte MD in OV> 04/29/25 1104 DD/ 1057 TD/TT: 04/29/25 1057 Senior Quality Assurance Analyst: Procedure Note Donotuseinterpreter, Image - 04/29/2025 [place] [address] XRay Report Signed Patient: Jacki Baker [facility]#: [id number] : 7Acct:[id number] Age/Sex: 69 / FADM Date: 04/29/25 Loc: HO.ED Attending Dr: Ordering Physician: Minal Limon NP Date of Service: 04/29/25 Procedure(s): XR hand LT min 3V Accession Number(s): [id number] cc: Karen Guthrie; Minal Limon NP Reason for Exam: fall, pain dorsal hand EXAMINATION: XR HAND/WRIST, LEFT CLINICAL INFORMATION: fall, pain distal COMPARISON: None available. TECHNIQUE: Three views of the left hand. 4 views of the left wrist. FINDINGS: There is no fracture, dislocation, or suspicious bone lesion. There is normal alignment. 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 Carpal bones appear intact and normally aligned. Mild dorsal soft tissue swelling of the wrist. There are vascular calcifications. XR/XR hand LT min 3V IMPRESSION: 1. No acute fracture or dislocation of the left hand and wrist. 2. Dorsal soft tissue swelling of the wrist. Electronically signed by: Jas Aponte MD 04/29/2025 11:04 AM EDT Dictated By: Jas Aponte MD Signed By: <Electronically signed by Jas Aponte MD in OV> 04/29/25 1104 DD/ 1057 TD/TT: 04/29/25 1057 Senior Quality Assurance Analyst: [facility] External Provider IMG XR PROCEDURES Final Result * XR Wrist 3+ Views Left (04/29/2025 10:57 AM EDT) Anatomical Region Laterality Modality Upper Extremities, Wrist Left Radiogr aphic Imaging 04/29/2025 10:5 7 AM EDT Narrative 04/29/2025 11:07 AM EDT [place] [address] XRay Report Signed Patient: Jacki Baker I MR#: [id number] : 1955 Acct:[id number] Age/Sex: 69 / F ADM Date: 04/29/25 Loc: HO.ED Attending Dr: Ordering Physician: Minal Limon NP Date of Service: 04/29/25 Procedure(s): XR wrist LT min 3V Accession Number(s): [id number] cc: Karen Guthrie; Minal Limon NP Reason for Exam: fall, pain distal EXAMINATION: XR HAND/WRIST, LEFT CLINICAL INFORMATION: fall, pain distal COMPARISON: None available. TECHNIQUE: Three views of the left hand. 4 views of the left wrist. FINDINGS: There is no fracture, dislocation, or suspicious bone lesion. There is normal alignment. 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 Carpal bones appear intact and normally aligned. Mild dorsal soft tissue swelling of the wrist. There are vascular calcifications. XR/XR wrist LT min 3V IMPRESSION: 1. No acute fracture or dislocation of the left hand and wrist. 2. Dorsal soft tissue swelling of the wrist. Electronically signed by: Jas Aponte MD 04/29/2025 11:04 AM EDT Dictated By: Jas Aponte MD Signed By: <Electronically signed by Jas Aponte MD in OV> 04/29/25 1104 DD/ 105 TD/TT: 04/29/25 105 Senior Quality Assurance Analyst: Procedure Note Donotuseinterpreter, Image - 04/29/2025 [place] [address] XRay Report Signed Patient: Jacki Baker [facility]#: [id number] : 7Acct:[id number] Age/Sex: 69 / FADM Date: 04/29/25 Loc: .ED Attending Dr: Ordering Physician: Minal Limon NP Date of Service: 04/29/25 Procedure(s): XR wrist LT min 3V Accession Number(s): [id number] cc: Karen Guthrie; Minal Limon NP Reason for Exam: fall, pain distal EXAMINATION: XR HAND/WRIST, LEFT CLINICAL INFORMATION: fall, pain distal COMPARISON: None available. TECHNIQUE: Three views of the left hand. 4 views of the left wrist. FINDINGS: There is no fracture, dislocation, or suspicious bone lesion. There is normal alignment. 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 Carpal bones appear intact and normally aligned. Mild dorsal soft tissue swelling of the wrist. There are vascular calcifications. XR/XR wrist LT min 3V IMPRESSION: 1. No acute fracture or dislocation of the left hand and wrist. 2. Dorsal soft tissue swelling of the wrist. Electronically signed by: Jas Aponte MD 04/29/2025 11:04 AM EDT RP Dictated By: Jas Aponte MD Signed By: <Electronically signed by Jas Aponte MD in OV> 04/29/25 1104 DD/ 1057 TD/TT: 04/29/25 1057 Senior Quality Assurance Analyst: [facility] External Provider IMG XR PROCEDURES Final Result * BI Mammogram Diagnostic Tomosynthesis Bilateral (01/31/2025 9:30 AM EDT) Anatomical Region Laterality Modality Breast Bilateral Mammography 01/31/2025 9:30 AM EDT Narrative 01/31/2025 2:41 PM EDT [address] [place] [address] Mammography Report Signed Patient: Jacki Baker I MR#: [id number] : 1955 Acct:[id number] Age/Sex: 69 / F ADM Date: 01/31/25 Loc: HO.MAMMO Attending Dr: Karen Guthrie MD Ordering Physician: Karen Guthrie Results: 3.12MProb ably Benign Finding - 12 month F/U Suggested Date of Service: 01/31/25 Follow Up: 12 month diagnos tic follow up Procedure(s): MM tomosynthesis diagnostic BI Accession Number(s): [id number] cc: Karen Guthrie EXAMINATION: MM DIAGNOSTIC DIGITAL BREAST TOMOSYNTHESIS, BILATERAL CLINICAL INFORMATION: 1 year follow-up for grouped calcifications in the left breast. COMPARISON: Mammography: Comparison is made with relevant prior exams. TECHNIQUE: Digital breast mammography with tomosynthesis is performed in both the craniocaudal and mediolateral oblique views along with computer-aided detection (CAD). FINDINGS: The breasts are heterogeneously dense, which may obscure small masses (ACR BI-RADS breast composition Category c). Grouped coarse heterogeneous calcifications in the central outer and upper outer left breast are not significantly changed from prior magnification views dating back for one year. No suspicious masses or other abnormal findings. Results are provided to the patient at time of visit by the technologist. MM/MM tomosynthesis diagnostic BI IMPRESSION: Right: Benign. Left: Grouped calcifications in the central outer and upper outer left breast are not significantly changed on magnification views for one year. Recommend follow-up with magnification views in one year when the patient will be due for bilateral mammography. ASSESSMENT: BI-RADS BI-RADS 3 - Probably benign finding(s) - 12 month follow-up suggested RECOMMENDATION: 12 month diagnostic follow up This patient's information was entered into a reminder system with a target due date for their next mammogram. Electronically signed by: Susana Garcia DO 01/31/2025 02:38 PM EDT RP Dictated By: Susana Garcia DO Signed By: <Electronically signed by Susana Garcia DO in OV> 01/31/25 1438 DD/ 0930 TD/TT: 01/31/25 1000 Senior Quality Assurance Analyst: Procedure Note Donotuseinterpreter, Image - [facility] [address] [place] [address] Mammography Report Signed Patient: Jacki Baker IMR#: [id number] : 7Acct:[id number] Age/Sex: 69 / FADM Date: 01/31/25 Loc: HO.MAMMO Attending Dr: Karen Guthrie MD Ordering Physician: Brett Guthrieults: 3.12MProb ably Benign Finding - 12 month F/U Suggested Date of Service: 01/31/25Follow Up: 12 month diagnos tic follow up Procedure(s): MM tomosynthesis diagnostic BI Accession Number(s): [id number] cc: Karen Guthrie EXAMINATION: MM DIAGNOSTIC DIGITAL BREAST TOMOSYNTHESIS, BILATERAL CLINICAL INFORMATION: 1 year follow-up for grouped calcifications in the left breast. COMPARISON: Mammography: Comparison is made with relevant prior exams. TECHNIQUE: Digital breast mammography with tomosynthesis is performed in both the craniocaudal and mediolateral oblique views along with computer-aided detection (CAD). FINDINGS: The breasts are heterogeneously dense, which may obscure small masses (ACR BI-RADS breast composition Category c). Grouped coarse heterogeneous calcifications in the central outer and upper outer left breast are not significantly changed from prior magnification views dating back for one year. No suspicious masses or other abnormal findings. Results are provided to the patient at time of visit by the technologist. MM/MM tomosynthesis diagnostic BI IMPRESSION: Right: Benign. Left: Grouped calcifications in the central outer and upper outer left breast are not significantly changed on magnification views for one year. Recommend follow-up with magnification views in one year when the patient will be due for bilateral mammography. ASSESSMENT: BI-RADS BI-RADS 3 - Probably benign finding(s) - 12 month follow-up suggested RECOMMENDATION: 12 month diagnostic follow up This patient's information was entered into a reminder system with a target due date for their next mammogram. Electronically signed by: Susana Garcia DO 01/31/2025 02:38 PM EDT RP Dictated By: Susana Garcia DO Signed By: <Electronically signed by Susana Garcia DO in OV> 01/31/25 1438 DD/ 0930 TD/TT: 01/31/25 1000 Senior Quality Assurance Analyst: Karen Guthrie MD IMG BI PROCEDURES Edited Resul t - Final * Hepatitis C Antibody with Reflex to HCV, RNA, Quantitative, Real-Time PCR (11/05/2024 10:58 AM EDT) Hepatitis C Antibody Nonreactive Nonreactive [facility] Comment:Antibodies to HCV no t detected; does not exclude early acuteHCV infection. Blood Venous blood specimen / Unknown 11/05/2024 10:58 AM EDT 11/05/2024 1:32 PM EDT Karen Guthrie MD LAB BLOOD ORDERABLES Final Res ult [facility] [address] [place] [phone] * (ABNORMAL) Lipid Panel, Standard (11/05/2024 10:58 AM EDT) Triglycerides 328(H) <150 mg/dL [facility] Comment:Desirable Triglyceri de: less than 150 mg/dLBorderline High Triglyceride 150-199 mg/dLHigh Triglyceride: 200-499 mg/dLVery High Triglyceride: greater than or equal to 5OO mg/dL Cholesterol 147 <200 mg/dL [facility] Comment:Desirable Cholestero l: less than 200 mg/dLBorderline High Cholesterol: 200-239 mg/dLHigh Cholesterol: greater than 239 mg/dL LDL Cholesterol Calculated 38 <100 mg/dL [facility] Comment:Desirable LDL: less than 100 mg/dLNear Optimal/Above Optimal LDL: 110- 129 mg/dLBorderline High LDL: 130-159 mg/dLHigh LDL: 160-189 mg/dLVery High LDL: greater than or equal to 190 mg/dL HDL Cholesterol 44 >40 mg/dL [facility] Comment:Desirable HDL: grea ter than 40 mg/dL Note: This HDL assay may give artificially low results in patients with liver disease. Blood Venous blood specimen / Unknown 11/05/2024 10:58 AM EDT 11/05/2024 1:32 PM EDT Karen Guthrie MD LAB BLOOD ORDERABLES Final Res ult [facility] [address] [place] [phone] * (ABNORMAL) POCT HGB A1C (11/05/2024 10:35 AM EDT) Hemoglobin A1C 9.3(A) 4.0 - 6.0 % QC Media Lot # [id number] Lot# Expiration Date 271 Blood 11/05/2024 10:3 5 AM EDT Karen Guthrie MD POINT OF CARE TEST ENTER/EDIT ORDERABLES Final Result * (ABNORMAL) Albumin, Random Urine W/Creatinine (09/22/2023 9:54 AM EST) Creatinine, Urine 228.61 mg/dL [facility] Microalbumin Urine 1,362.0 mg/L [facility] Microalbum Creatinine Ratio Ur 595.7(H) <30 ug/mg cr [facility] Comment:Albumin/Creatinine R atio Reference Ranges: Normal: < 30 ug/mg creatinine Microalbuminuria: 30 - 300 ug/mg creatinineClinical Albuminuria: > 300 ug/mg creatinine Urine (Urine, Random) 09/22/2023 9:54 AM EST 09/22/2023 11:03 AM EST Karen Guthrie MD LAB URINE ORDERABLES Final Res ult [facility] [address] [place] [phone] * FIT DNA/Cologuard Cancer Screening (04/02/2023) Cologuard Cancer Screen Negative Stool Karen Guthrie MD HEALTH MAINTENANCE Final Resul t from Last 3 Months or Most Recently Relevant to Health Maintenance Insurance [facility] [employer] (O D-SNP) [facility]AL - [facility] Care Teams Ferryboat Operator Helper Relationship Specialty Start Date End Date Karen Guthrie MD [address] [place] [address] PCP - General Family Medicine 07/15/22
== END 2025-05-11 11:42 | disposition home or self-care (01) ==
PROVIDERS: PCP General Practice; Visit Provider Nurse Practitioner Family
DX: K76.0 Fatty (change of) liver, not elsewhere classified (principal); R11.2 Nausea with vomiting, unspecified; K21.9 Gastro-esophageal reflux disease without esophagitis; K59.09 Other constipation; R10.84 Generalized abdominal pain
CPT/HCPCS: 99214; G2211

== ENCOUNTER → 2025-05-11 10:58 | Outpatient (BNVA) | payer OTHER, SELFPAY | PROVIDERS: PCP Internal Medicine; Visit Provider Nurse Practitioner Family | DX: K76.0 Fatty (change of) liver, not elsewhere classified (principal); R11.2 Nausea with vomiting, unspecified; R10.84 Generalized abdominal pain; K21.9 Gastro-esophageal reflux disease without esophagitis; K59.09 Other constipation | CPT/HCPCS: 99212 ==

== ENCOUNTER 2025-05-25 09:37 | Outpatient (REF) | payer OTHER, SELFPAY ==
[2025-05-25 10:14] LABS: Platelet Count 248 X10*3/uL (160-400)
[2025-05-25 10:19] LABS: INTERNATIONAL NORM RATIO 1.0 (0.9-1.1); Prothrombin Time 11.9 SEC (10.9-12.4)
--- OUTSIDE RECORDS SUMMARY | 2025-05-25 10:31 | XMS_ITS | Encounter Summary ---
Author Organization [employer] Address [address] [place] [address] Care Team Providers Care Tail End Rider Name Role Phone Karen Guthrie MD Primary Care Provider [phone] Encounter Details Date Type Department Care Team ([facility] Contact Info) Description 09/23/2024 Orders Only [facility] MEDICINE [address] [place] [address] Karen Guthrie MD [address] [place] [address] Social History Tobacco Use Types Packs/Day Years [...] Description 07/01/2025 1:30 PM EST Office Visit [facility] MEDICINE [address] [place] [address] Karen Guthrie MD [address] [place] [address] 07/25/2025 9:30 AM EST Office Visit [facility] OPTOMETRY [address] [place] [address] Robert, Yocasta, OD [address] [place] [address] documented as of this encounter Visit Diagnoses Not on filedocumented in this encounter Additional Health Concerns Assessment Noted Time PHQ-9 Depression Total Score: 14 024 1:04 PM EDT documented as of this encounter Care Teams Tail End Rider Relationship Specialty Start Date End Date Karen Guthrie MD [address] [place] [phone] PCP - General Family Medicine 07/15/22 documented as of this encounter
--- OUTSIDE RECORDS SUMMARY | 2025-05-25 10:31 | XMS_ITS | Encounter Summary ---
Author Organization [employer] Address [address] [facility] [address]t [place] [address] Care Team Providers Care Cloth Pattern Maker Name Role Phone Karen Guthrie MD Primary Care Provider [phone] Encounter Details Date Type Department Care Team (Late Contact Info) Description 01/31/2023 Orders Only [facility] MEDICINE [address] [place] [address] Karen Guthrie MD [address] [place], [place] [phone] Constipation, unspecified constipation type (Primary Dx) Social [...] 1:30 PM EST Office Visit [facility] [address] [place] [address] Karen Guthrie MD [address] [place] [address] [phone] 07/25/2025 9:30 AM EST Office Visit [facility] OPTOMETRY [address] [place], [place] [phone] Yocasta Jones, OD [address] [place], [place] [phone] documented as of this encounter Visit Diagnoses Diagnosis Constipation, unspecified constipation type- Primary documented in this encounter Care Teams Cloth Pattern Maker Relationship Specialty Start Date End Date Karen Guthrie MD [address] [place], [place] [phone] PCP - General Family Medicine 07/15/22 documented as of this encounter
--- OUTSIDE RECORDS SUMMARY | 2025-05-25 10:31 | XMS_ITS | Encounter Summary ---
Author Organization [employer] Address [address] 7t [place] [address] Care Team Providers Care Human Resources Designate Name Role Phone Karen Guthrie MD Primary Care Provider [phone] Reason for Visit * Reason Comments Med Refill Encounter Details Date Type Department Care Team ([facility] Contact Info) Description 05/21/2025 Refill [facility] MEDICINE [address] [place], [place] [phone] Karen Guthrie MD [address] [place], [place] [phone] Type 2 diabetes mellitus with other specified complication, unspecified whether senior living insulin use ([facility]) Social History Tobacco Use Types [...] 1:30 PM EST Office Visit [facility] MEDICINE [address] [place] [address] Karen Guthrie MD [address] [place] [address] 07/25/2025 9:30 AM EST Office Visit [facility] OPTOMETRY [address] [place] [address] Robert, Yocasta, OD [address] [place] [address] documented as of this encounter Visit Diagnoses Diagnosis Type 2 diabetes mellitus with other specified complication, unspecified whether senior living insulin use (HCC) documented in this encounter Additional Health Concerns Assessment Noted Time PHQ-9 Depression Total Score: 21 025 10:33 AM EDT documented as of this encounter Care Teams Human Resources Designate Relationship Specialty Start Date End Date Karen Guthrie MD [address] [place] [phone] PCP - General Family Medicine 07/15/22 documented as of this encounter
--- OUTSIDE RECORDS SUMMARY | 2025-05-25 10:31 | XMS_ITS | Encounter Summary ---
Author Organization [employer] Address [address] [facility] [address] [place] [address] Care Team Providers Care Dress Shoe Inspector Name Role Phone Karen Guthrie MD Primary Care Provider [phone] Encounter Details Date Type Department Care Team (Late Contact Info) Description 04/18/2023 Orders Only [facility] MEDICINE [address] [place], [place] [phone] Karen Guthrie MD [address] [place] [address] [phone] Social History Tobacco Use Types Packs/Day Years [...] Description 07/01/2025 1:30 PM EST Office Visit [facility] MEDICINE [address] [place], [place] [phone] Karen Guthrie MD [address] [place], [place] [phone] 07/25/2025 9:30 AM EST Office Visit [facility] OPTOMETRY [address] [place] [phone] Yocasta Jones, OD [address] [place] [address] documented as of this encounter Visit Diagnoses Not on filedocumented in this encounter Care Teams Dress Shoe Inspector Relationship Specialty Start Date End Date Karen Guthrie MD [address] [place] [address] PCP - General Family Medicine 07/15/22 documented as of this encounter
--- OUTSIDE RECORDS SUMMARY | 2025-05-25 10:31 | XMS_ITS | Encounter Summary ---
Author Organization [employer] Address [address] [place] [address] Care Team Providers Care Program Rep Name Role Phone Karen Guthrie MD Primary Care Provider [phone] Reason for Visit * Reason Onset Date Comments Med Refill 04/22/2024 Encounter Details Date Type Department Care Team ([facility] st Contact Info) Description 04/22/2024 Telephone [facility] MEDICINE [address] [place], [place] [phone] Karen Guthrie MD [address] [place], [place] [phone] Med Refill Social History Tobacco Use Types [...] EDT Medication was sent to [facility] on 03/10/24 with 3 refills. * Telephone Encounter - Harry Deal - 04/22/2024 9:27 AM EDT TC from pt requesting medication refill. Medications needing refill : Continuous Glucose Sensor (FreeStyle Khalif 2 Sensor) [facility] To be sent to: [facility] documented in this encounter Plan of Treatment Upcoming Encounters Date Type Department Care Team (Late st Contact Info) Description 07/01/2025 1:30 PM EST Office Visit [facility] MEDICINE [address] [place] [address] Karen Guthrie MD [address] [place] [address] 07/25/2025 9:30 AM EST Office Visit [facility] OPTOMETRY [address] [place] [address] Yocasta Jones, JAMIE [address] [place] [address] documented as of this encounter Visit Diagnoses Not on filedocumented in this encounter Additional Health Concerns Assessment Noted Time PHQ-9 Depression Total Score: 14 024 1:04 PM EDT documented as of this encounter Care Teams Program Rep Relationship Specialty Start Date End Date Karen Guthrie MD [address] [place] [address] PCP - General Family Medicine 07/15/22 documented as of this encounter
--- OUTSIDE RECORDS SUMMARY | 2025-05-25 10:31 | XMS_ITS | Encounter Summary ---
Author Organization [employer] Address [address] [place] [address] Care Team Providers Care Pensions Retirement Plan Specialist Name Role Phone Karen Guthrie MD Primary Care Provider [phone] Reason for Visit * Reason Comments Med Refill Encounter Details Date Type Department Care Team ([facility] st Contact Info) Description 10/01/[address] [facility] MEDICINE [address] [place], [place] [phone] Karen Guthrie MD [address] [place], [place] [phone] Type 2 diabetes mellitus with other specified complication, unspecified whether custodial insulin use ([facility]) Social History Tobacco [...] [facility] MED[facility] [address] [place] [address] Karen Guthrie MD [address] [place] [address] 07/25/2025 9:30 AM EST Office Visit [facility] OPTOMETRY [address] [place] [address] Robert, Yocasta, OD [address] [place] [address] documented as of this encounter Visit Diagnoses Diagnosis Type 2 diabetes mellitus with other specified complication, unspecified whether custodial insulin use (HCC) documented in this encounter Care Teams Pensions Retirement Plan Specialist Relationship Specialty Start Date End Date Karen Guthrie MD [address] [place] [address] PCP - General Family Medicine 07/15/22 documented as of this encounter
--- OUTSIDE RECORDS SUMMARY | 2025-05-25 10:31 | XMS_ITS | Encounter Summary ---
Author Organization [employer] Address [address] [facility] 7t [place] [address] Care Team Providers Care Clerk Entry Level Name Role Phone Karen Guthrie MD Primary Care Provider [phone] Encounter Details Date Type Department Care Team (Late Contact Info) Description 01/10/2023 Orders Only [facility] MEDICINE [address] [place] [address] [phone] Karen Guthrie MD [address] [place] [address] [phone] Vomiting, unspecified vomiting type, unspecified whether nausea [...] 1:30 PM EST Office Visit [facility] MEDICINE [address] [place] [address] [phone] Karen Guthrie MD [address] [place] [phone] 07/25/2025 9:30 AM EST Office Visit [facility] OPTOMETRY [address] [place] [address] Yocasta Jones, OD [address] [place] [address] Scheduled Orders Name Type Priority Associated Diagnoses Orde r Schedule Basic Metabolic Panel Lab Routine Vomiting, unspecified vomiting type, unspecified whether nausea present Expected: 01/10/2023 (Approximate), Expires: 01/11/2024 documented as of this encounter Visit Diagnoses Diagnosis Vomiting, unspecified vomiting type, unspecified whether nausea present- Primary documented in this encounter Care Teams Clerk Entry Level Relationship Specialty Start Date End Date Karen Guthrie MD [address] [place] [address] PCP - General Family Medicine 07/15/22 documented as of this encounter
--- OUTSIDE RECORDS SUMMARY | 2025-05-25 10:31 | XMS_ITS | Encounter Summary ---
Author Organization [employer] Address 75 [facility] 7t [place] [address] Care Team Providers Care Yard Engineer Name Role Phone Karen Guthrie MD Primary Care Provider [phone] Encounter Details Date Type Department Care Team (Late st Contact Info) Description 12/16/2022 Orders Only [facility] [address] [place] [phone] Karen Guthrie MD [address] [place], [place] [phone] Epigastric pain (Primary Dx) Social History Tobacco [...] Description 07/01/2025 1:30 PM EST Office Visit [facility] [address] [place] [phone] Karen Guthrie MD [address] [place] [address] 07/25/2025 9:30 AM EST Office Visit [facility] OPTOMETRY [address] [place] [address] Yocasta Jones, OD [address] [place] [address] documented as of this encounter Procedures Procedure Name Priority Date/Time Associated Diagnosis Comments GLUCOSE, WHOLE BLOOD Routine 01/01/2023 10:57 AM EDT Epigastric pain GLUCOSE, WHOLE BLOOD Routine 01/01/2023 10:32 AM EDT Epigastric pain documented in this encounter Results * Glucose, Whole Blood (01/01/2023 10:57 AM EDT) Glucose, Whole Blood 95 60 - 115 mg/dL [facility] Comment:METER #: [id number] Testing performed in the Endocrinology Department [address] , [address], [facility]. 01/01/2023 10:5 7 AM EDT 01/01/2023 11:05 AM EDT us [facility] External Provider LAB BLO OD ORDERABLES Final Result [facility] [address] [place] [phone] * Glucose, Whole Blood (01/01/2023 10:32 AM EDT) Glucose, Whole Blood 60 60 - 115 mg/dL [facility] Comment:METER #: [id number] 5Testing performed in the Endocrinology Department [address] , [address], [place]. 01/01/2023 10:3 2 AM EDT 01/01/2023 10:38 AM EDT us [facility] External Provider LAB BLO OD ORDERABLES Final Result [facility] [address] [place] [phone] [phone] documented in this encounter Visit Diagnoses Diagnosis Epigastric pain- Primary Abdominal pain, epigastric documented in this encounter Care Teams Yard Engineer Relationship Specialty Start Date End Date Karen Guthrie MD [address] [place] [phone] PCP - General Family Medicine 07/15/22 documented as of this encounter
--- OUTSIDE RECORDS SUMMARY | 2025-05-25 10:31 | XMS_ITS | Clinical Summary ---
Author Organization [employer] Address [address] [facility] 7t [place] [address] Care Team Providers Care Ceo Name Role Phone Karen Guthrie MD Primary Care Provider [phone] Allergies Active Allergy Reactions Criticality Noted Date [...] at bedtime. 023 Active Continuous Blood Gluc Pumper Gager Apprentice (FreeStyle Khalif 2 [place]) device USE TO TEST BLOOD SUGAR THREE TIMES DAILY AND NEEDED 1 each 023 Active benztropine (Cogentin) 0.5 MG tablet Take 0.5 mg by mouth at bedtime. 023 Active NovoLOG FLEXPEN 100 UNIT/ML penIndications:Ty pe 2 diabetes mellitus with other specified complication, with long-term current use of insulin (HCC) INJECT 12 UNITS SUBCUTANEOUSLY WITH BREAKFAST, INJECT [...] 14 DAYS 2 each 3 024 Active omeprazole (PriLOSEC) [address] [...] with other specified complication, unspecified whether termite exterminator helper insulin use (HCC) TEST BLOOD SUGAR 4 TO 6 TIMES PER DAY 100 strip 11 025 Active Multiple Vitamin (Multivitamin) tablet TAKE 1 TABLET BY MOUTH EVERY MORNING WITH FOOD 90 tablet 3 025 Active Bisacodyl EC 5 MG EC tablet take 2 tablets by mouth every day at bedtime Active acetaminophen (Tylenol 8 Hour) 650 MG ER tablet Take 1 tablet (650 mg) by mouth every 8 (eight) hours if needed for mild pain. Do not crush, chew, or split. 30 tablet Active TRUEplus Lancets 33G misc USE DIRECTED TO TEST BLOOD SUGAR 4 TO SIX TIMES DAILY 100 each 11 Active Fiber-Lax 625 MG tablet TAKE 1 TABLET BY MOUTH TWICE DAILY IN THE MORNING AND IN THE EVENING 180 tablet 3 Active Embecta Pen Needle Inocencia 32G X 4 MM miscIndications:T ype 2 diabetes mellitus with other specified complication, unspecified whether mcc insulin use (HCC) USE DIRECTED EVERY DAY 100 each 5 025 Active insulin pen needle (BD Pen Needle Inocencia U/F) 32G x 4 mm miscIndications:T ype 2 diabetes mellitus with other specified complication, unspecified whether mcc insulin use (HCC) USE DIRECTED TO INJECT DAILY 100 each 5 025 2024 Discontinued Active Problems Problem Noted Date [...] supposed to repeat Cscope in 2020 at [facility] Did not get scheduled, overdue In the [...] disorder 03/03/2018 Recurrent major depressive episodes, moderate (C MS/HCC) 03/03/2018 Multiple nodules of lung 02/05/2018 Hypermetropia 01/30/2018 [...] Current A1c: 9.3, continue insulin titration with [facility] Endo BMP: Lab Results Component Value Date [...] Encounters Date Type Department Care Team Description 05/25/2025 Orders Only GENERIC EXTERNAL DATA DEPARTMENT Provider, Generic External Data 05/21/2025 Refill [facility] MED[facility] [address] [place] [address] Karen Guthrie MD Type 2 diabetes mellitus with other specified complication, unspecified whether termite exterminator helper insulin use ([facility]) 04/29/2025 Orders Only [facility] External Provider, [facility] 04/27/2025 Telephone [facility] [address] [place] [address] Karen Guthrie MD Nurse Triage (fall) 04/27/2025 Travel 04/13/2025 9:00 AM EDT Office Visit [facility] ADULT DENTAL [address] [place] [address] Alda Tian, DDS Open fracture of tooth, initial encounter (Primary Dx); Bruxism 04/03/2025 Refill [facility] [address] [place], [place] [phone] Karen Guthrie MD 03/02/2025 Refill [facility] [address] [place], [place] [phone] Karen Guthrie MD from Last 3 Months Immunizations Immunization Administration [...] Description 07/01/2025 1:30 PM EST Office Visit [facility] [address] [place] [address] Karen Guthrie MD [address] [place] [address] 07/25/2025 9:30 AM EST Office Visit [facility] OPTOMETRY [address] [place], [place] [phone] Robert, Yocasta, OD [address] [place] [address] Health Maintenance Due Date Last Done Comments CT Colonography 1955 Colonoscopy 1955 FIT 1955 Sigmoidoscopy 1955 RSV Patients and Patients Aged 60 years or older (1 - Risk 60-74 years 1-dose series) 2016 Dental X-Ray: Full Mouth 01/09/2021 01/08/2018 Dental Prophylaxis 02/13/2022 08/14/2021, 0 03/03/2019, 09/04/2018, Additional history exists Dental Oral Exam 05/20/2022 11/16/2021, , 09/07/2020, Additional history exists Dental X-Ray: Bitewings 11/17/2022 11/17/19 22, 09/07/2020, 01/08/2018, Additional history exists FOBT 04/02/2024 04/02/2023 Diabetes: Urine Protein Screening 09/22/2024 09/22/2023, 03/22/2020 Diabetes: Hemoglobin A1C 02/05/202511/05/ 025, 12/19/2023, 09/22/2023, Additional history exists COVID-19 [...] Procedure Name Priority Date/Time Associated Diagnosis Comments PROTHROMBIN TIME-INR Routine 05/25/2025 9:57 AM EDT PLATELET COUNT Routine 05/25/2025 9:[address] SINUS FACIAL BONES WO CONTRAST Routine [...] OR PHYSICIAN Routine 04/13/2025 9:00 AM EDT BI MAMMOGRAM DIAGNOSTIC TOMOSYNTHESIS BILATERAL [...] mellitus with other specified complication, unspecified whether mcc insulin use (CMS/HCC) HM FIT DNA/COLOGUARD CANCER [...] Recently Relevant to Health Maintenance Results * Prothrombin Time-INR (05/25/2025 9:57 AM EDT) Prothrombin Time 11.9 10.9 - 12.4 SEC [facility] INTERNATIONAL NORM RATIO 1.0 0.9 - 1.1 [facility] Comment:INTERNATIONAL NORMAL IZED RATIO (INR) REFERENCE RANGES Reference RangeFor patients not on anticoagulant therapy: 0.9 - 1.1INR ranges for oral anticoagulanttherapy:For prevention and treatment of venous thrombosis and pulmonary embolism: 2.0 - 3.0For acute myocardial infarction with aspirin therapy: 2.0 - 3.0For acute myocardial infarction without aspirin therapy: 3.0 - 4.0For patients with mechanical prosthetic heart valves: 2.5 - 3.5 05/25/2025 9:57 AM EDT 05/25/2025 10:04 AM EDT us Generic External Data Provider LAB BLOOD ORDERAB LES Final Result Performing Organization Address [facility]/ZIP Co de Phone Number [facility] [address] [place] [phone] * Platelet Count (05/25/2025 9:57 AM EDT) Platelet Count 248 160 - 400 X10*3/uL [facility] 05/25/2025 9:57 AM EDT 05/25/2025 10:18 AM EDT us Generic External Data Provider LAB BLOOD ORDERAB LES Final Result Performing Organization Address [facility]/ZIP Co de Phone Number [facility] [address] [place] [phone] * CT Sinus Facial Bones w/o Contrast (04/29/2025 10:58 AM EDT) Anatomical Region Laterality Modality Computed Tomogra phy 04/29/2025 10:5 8 AM EDT Narrative 04/29/2025 11:41 AM EDT [address] [address] [address] Scan Report Signed Patient: Jacki Baker I MR#: [id number] : 1955 Acct:[id number] Age/Sex: 69 / F ADM Date: 04/29/25 Loc: HO.ED Attending Dr: Ordering Physician: Minal Limon NP Date of Service: 04/29/25 Procedure(s): CT facial bones wo IV con Accession Number(s): [id number] cc: Karen Guthrie; Minal Limon NP Report Number: [id number]: Total DLP = 1016.38 mGy-cm Reason for [...] Alan Pollack MD 04/29/2025 11:38 AM EDT Dictated By: Alan Pollack MD Signed By: <Electronically signed by Alan Pollack MD in OV> 04/29/25 1138 DD/ 1058 TD/TT: 04/29/25 1113 Cardiopulmonary Supervisor: Procedure Note Donotuseinterpreter, Image - 04/29/[address] [address] [address] Scan Report Signed Patient: Jacki Baker [facility]#: [id number] : 1955cct:[id number] Age/Sex: 69 / FADM Date: 04/29/25 Loc: HO.ED Attending Dr: Ordering Physician: Minal Limon NP Date of Service: 04/29/25 Procedure(s): CT facial bones wo IV con Accession Number(s): [id number] cc: Karen Guthrie; Minal Limon NP Report Number: [id number]: Total DLP = 1016.38 mGy-cm Reason for [...] Alan Pollack MD 04/29/2025 11:38 AM EDT Dictated By: Alan Pollack MD Signed By: <Electronically signed by Alan Pollack MD in OV> 04/29/25 1138 DD/ 1058 TD/TT: 04/29/25 1113 Cardiopulmonary Supervisor: [facility] External Provider IMG CT PROCEDURES Final Result * CT Head w/o Contrast (04/29/2025 10:58 AM EDT) Anatomical Region Laterality Modality Head, Neck Computed Tomogra phy 04/29/2025 10:5 8 AM EDT Narrative 04/29/2025 11:38 AM EDT [address] [address] [address] Scan Report Signed Patient: Jacki Baker I MR#: [id number] : 1955 Acct:[id number] Age/Sex: 69 / F ADM Date: 04/29/25 Loc: HO.ED Attending Dr: Ordering Physician: Minal Limon NP Date of Service: 04/29/25 Procedure(s): CT head/brain wo IV con Accession Number(s): [id number] cc: Karen Guthrie; Minal Limon NP Report Number: [id number]: Total DLP = 0.00 mGy-cm Reason for [...] 04/29/25 1135 DD/ 1058 TD/TT: 04/29/25 1113 Cardiopulmonary Supervisor: Procedure Note Donotuseinterpreter, Image - 04/29/[address] [place] [address] [address] Scan Report Signed Patient: Jacki Baker [facility]#: [id number] : 1955cct:[id number] Age/Sex: 69 / FADM Date: 04/29/25 Loc: HO.ED Attending Dr: Ordering Physician: Minal Limon NP Date of Service: 04/29/25 Procedure(s): CT head/brain wo IV con Accession Number(s): [id number] cc: Karen Guthrie; Minal Limon NP Report Number: [id number]: Total DLP = 0.00 mGy-cm Reason for [...] 04/29/25 1135 DD/ 1058 TD/TT: 04/29/25 1113 Cardiopulmonary Supervisor: [facility] External Provider IMG CT PROCEDURES Final Result * XR Hand 3+ Views Left (04/29/2025 10:57 AM EDT) Anatomical Region Laterality Modality Upper Extremities, Hand Left [facility] 04/29/2025 10:5 7 AM EDT Narrative 04/29/2025 11:07 AM EDT [address] [address] XRay Report Signed Patient: Jacki Baker I MR#: [id number] : 1955 Acct:[id number] Age/Sex: 69 / F ADM Date: 04/29/25 Loc: HO.ED Attending Dr: Ordering Physician: Minal Limon NP Date of Service: 04/29/25 Procedure(s): XR hand LT min 3V Accession Number(s): [id number] cc: Karen Guthrie; Minal Limon NP Reason [...] 04/29/25 1104 DD/ 1057 TD/TT: 04/29/25 1057 Cardiopulmonary Supervisor: Procedure Note Donotuseinterpreter, Image - 04/29/2025 [place] [address] XRay Report Signed Patient: Jacki Baker [facility]#: [id number] : 1955cct:[id number] Age/Sex: 69 / FADM Date: 04/29/25 Loc: HO.ED Attending Dr: Ordering Physician: Minal Limon NP Date of Service: 04/29/25 Procedure(s): XR hand LT min 3V Accession Number(s): [id number] cc: Karen Guthrie; Minal Limon NP Reason [...] 04/29/25 1104 DD/ 105 TD/TT: 04/29/25 105 Cardiopulmonary Supervisor: [facility] External Provider IMG XR PROCEDURES Final Result * XR Wrist 3+ Views Left (04/29/2025 10:57 AM EDT) Anatomical Region Laterality Modality Upper Extremities, Wrist Left Radiogr aphic Imaging 04/29/2025 10:5 7 AM EDT Narrative 04/29/2025 11:07 AM EDT [place] [address] XRay Report Signed Patient: Jacki Baker I MR#: [id number] : 1955 Acct:[id number] Age/Sex: 69 / F ADM Date: 04/29/25 Loc: HO.ED Attending Dr: Ordering Physician: Minal Limon NP Date of Service: 04/29/25 Procedure(s): XR wrist LT min 3V Accession Number(s): [id number] cc: Karen Guthrie; Minal Limon NP Reason [...] 04/29/25 1104 DD/ 1057 TD/TT: 04/29/25 1057 Cardiopulmonary Supervisor: Procedure Note Donotuseinterpreter, Image - 04/29/2025 [place] [address] XRay Report Signed Patient: Jacki Baker [facility]#: [id number] : 7Acct:[id number] Age/Sex: 69 / FADM Date: 04/29/25 Loc: .ED Attending Dr: Ordering Physician: Minal Limon NP Date of Service: 04/29/25 Procedure(s): XR wrist LT min 3V Accession Number(s): [id number] cc: Karen Guthrie; Minal Limon NP Reason [...] 04/29/25 1104 DD/ 1057 TD/TT: 04/29/25 1057 Cardiopulmonary Supervisor: [facility] External Provider IMG XR PROCEDURES Final Result * BI Mammogram Diagnostic Tomosynthesis Bilateral (01/31/2025 9:30 AM EDT) Anatomical Region Laterality Modality Breast Bilateral Mammography 01/31/2025 9:30 AM EDT Narrative 01/31/2025 2:41 PM EDT [address] [place] [address] Mammography Report Signed Patient: Jacki Baker I MR#: [id number] : 1955 Acct:[id number] Age/Sex: 69 / F ADM Date: 01/31/25 Loc: HO.MAMMO Attending Dr: Karen Guthrie MD Ordering Physician: Karen Guthrie Results: 3.12MProb ably Benign Finding - 12 month F/U Suggested Date of Service: 01/31/25 Follow Up: 12 month diagnos tic follow up Procedure(s): MM tomosynthesis diagnostic BI Accession Number(s): [id number] cc: Karen Guthrie EXAMINATION: MM DIAGNOSTIC DIGITAL [...] Susana Garcia DO 01/31/2025 02:38 PM EDT Dictated By: Susana Garcia DO Signed By: <Electronically signed by Susana Garcia DO in OV> 01/31/25 1438 DD/ 0930 TD/TT: 01/31/25 1000 Cardiopulmonary Supervisor: Procedure Note Donotuseinterpreter, Image - 01/31/2025 [facility] [address] [place] [address] Mammography Report Signed Patient: Jacki Baker [facility]#: [id number] : 1955cct:[id number] Age/Sex: 69 / FADM Date: 01/31/25 Loc: HO.MAMMO Attending Dr: Karen Guthrie MD Ordering Physician: Brett Guthrieults: 3.12MProb ably Benign Finding - 12 month F/U Suggested Date of Service: 01/31/25Follow Up: 12 month diagnos tic follow up Procedure(s): MM tomosynthesis diagnostic BI Accession Number(s): [id number] cc: Karen Guthrie EXAMINATION: MM DIAGNOSTIC DIGITAL [...] Susana Garcia DO 01/31/2025 02:38 PM EDT Dictated By: Susana Garcia DO Signed By: <Electronically signed by Susana Garcia DO in OV> 01/31/25 1438 DD/ 0930 TD/TT: 01/31/25 1000 Cardiopulmonary Supervisor: Karen Guthrie MD IMG BI PROCEDURES Edited Resul t - Final * Hepatitis C Antibody with Reflex to HCV, RNA, Quantitative, Real-Time PCR (11/05/2024 10:58 AM EDT) Hepatitis C Antibody Nonreactive Nonreactive [facility] Comment:Antibodies to HCV no t detected; does not exclude early acuteHCV infection. Blood Venous blood specimen / Unknown 11/05/2024 10:58 AM EDT 11/05/2024 1:32 PM EDT Karen Guthrie MD LAB BLOOD ORDERABLES Final Res ult [facility] [address] [place] [address] [phone] * (ABNORMAL) Lipid Panel, Standard (11/05/2024 10:58 AM EDT) Triglycerides 328(H) <150 mg/dL [facility] Comment:Desirable Triglyceri de: less than 150 mg/dLBorderline High Triglyceride 150-199 mg/dLHigh Triglyceride: 200-499 mg/dLVery High Triglyceride: greater than or equal to 5OO mg/dL Cholesterol 147 <200 mg/dL [facility] Comment:Desirable Cholestero l: less than 200 mg/dLBorderline High Cholesterol: 200-239 mg/dLHigh Cholesterol: greater than 239 mg/dL LDL Cholesterol Calculated 38 <100 mg/dL [facility] Comment:Desirable LDL: less than 100 mg/dLNear Optimal/Above Optimal LDL: 110- 129 mg/dLBorderline High LDL: 130-159 mg/dLHigh LDL: 160-189 mg/dLVery High LDL: greater than or equal to 190 mg/dL HDL Cholesterol 44 >40 mg/dL [facility] Comment:Desirable HDL: great er than 40 mg/dL Note: This HDL assay may give artificially low results in patients with liver disease. Blood Venous blood specimen / Unknown 11/05/2024 10:58 AM EDT 11/05/2024 1:32 PM EDT Karen Guthrie MD LAB BLOOD ORDERABLES Final Res ult [facility] [address] [place] [phone] * (ABNORMAL) POCT HGB A1C (11/05/2024 10:35 AM EDT) Hemoglobin A1C 9.3(A) 4.0 - 6.0 % QC Media Lot # [id number] Lot# Expiration Date ,120 Blood 11/05/2024 10:3 5 AM EDT Karen Guthrie MD POINT OF CARE TEST ENTER/EDIT ORDERABLES Final Result * (ABNORMAL) Albumin, Random Urine W/Creatinine (09/22/2023 9:54 AM EST) Creatinine, Urine 228.61 mg/dL [facility] Microalbumin Urine 1,362.0 mg/L H [facility] Microalbum Creatinine Ratio Ur 595.7(H) <30 ug/mg cr [facility] Comment:Albumin/Creatinine R atio Reference Ranges: Normal: < 30 ug/mg creatinine Microalbuminuria: 30 - 300 ug/mg creatinineClinical Albuminuria: > 300 ug/mg creatinine Urine (Urine, Random) 09/22/2023 9:54 AM EST 09/22/2023 11:03 AM EST Karen Guthrie MD LAB URINE ORDERABLES Final Res ult [facility] [address] [place] [phone] [phone] * FIT DNA/Cologuard Cancer Screening (04/02/2023) Cologuard Cancer Screen Negative Stool Karen Guthrie MD HEALTH MAINTENANCE Final Resul t from Last 3 Months or Most Recently Relevant to Health Maintenance Insurance [facility] MCC OPTIONS (O D-SNP) JENI BULLOCK [id number] [facility] Care Teams Ceo Relationship Specialty Start Date End Date Karen Guthrie MD [address] [place] [address] PCP - General Family Medicine 07/15/22
--- OUTSIDE RECORDS SUMMARY | 2025-05-25 10:31 | XMS_ITS | Encounter Summary ---
Author Organization [employer] [facility] Address [address] [facility] 7t [place] [address] Care Team Providers Care Diesel Service Journeyman Name Role Phone Quang Vasques MD Primary Care Provider Karen Kang MD Primary Care Provider [phone] Encounter Details Date Type Department Care Team (Latest Contact Info) Description 09/04/2018 Abstract [facility] CONVERSIONS Dental, Provider, DDS Social History [...] Description 07/01/2025 1:30 PM EST Office Visit [facility] MEDICINE [address] [place] [address] Karen Guthrie MD [address] [place] [address] 07/25/2025 9:30 AM EST Office Visit [facility] OPTOMETRY [address] [place] [address] Yocasta Jones, OD [address] [place] [address] documented as of this encounter Visit Diagnoses Not on filedocumented in this encounter Care Teams Diesel Service Journeyman Relationship Specialty Start Date End Date Quang Vasques MD PCP - General Family Medicine 02/15/20 07/14/22 Karen Guthrie MD [address] [place] [phone] PCP - General Family Medicine 07/15/22 documented as of this encounter
--- OUTSIDE RECORDS SUMMARY | 2025-05-25 10:31 | XMS_ITS | Encounter Summary ---
Author Organization [employer] Address [address] [facility] [address] 7t [place] [address] Care Team Providers Care Parcel Post Carrier Name Role Phone Karen Guthrie MD Primary Care Provider [phone] Reason for Visit * Reason Comments Med Refill Encounter Details Date Type Department Care Team ([facility] st Contact Info) Description 01/31/2024 Refill [facility] [address] [place], [place] [phone] Karen Guthrie MD [address] [place], [place] [phone] Vitamin D deficiency Social History Tobacco Use [...] Description 07/01/2025 1:30 PM EST Office Visit [facility] [address] [place] [address] Karen Guthrie MD [address] [place] [address] 07/25/2025 9:30 AM EST Office Visit [facility] OPTOMETRY [address] [place] [address] Robert, Yocasta, OD [address] [place] [address] documented as of this encounter Visit Diagnoses Diagnosis Vitamin D deficiency documented in this encounter Additional Health Concerns Assessment Noted Time PHQ-9 Depression Total Score: 14 024 1:04 PM EDT documented as of this encounter Care Teams Parcel Post Carrier Relationship Specialty Start Date End Date Karen Guthrie MD [address] [place] [phone] PCP - General Family Medicine 07/15/22 documented as of this encounter
--- OUTSIDE RECORDS SUMMARY | 2025-05-25 10:31 | XMS_ITS | Encounter Summary ---
Author Organization [employer] Address 75 [facility] 7t [place] [address] Care Team Providers Care Tire Rebuilder Name Role Phone Karen Guthrie MD Primary Care Provider [phone] Reason for Referral * Imaging (STAT) - Closed Specialty Diagnoses / Procedures Referred By Contac t Referred To Contact Diagnoses LUQ pain Epigastric pain Procedures CT Abdomen Pelvis w/ Contrast Karen Guthrie MD [address] [place] [address] Phone: tel: fax: [facility] [address] [place] [address] Phone: tel: fax: Referral ID Status Reason Start Date Expiration Date Visits Re quested Visits Authorized [id number] Closed 01/02/2023 01/02/2024 1 1 Encounter Details Date Type Department Care Team (Late st Contact Info) Description 01/02/2023 Orders Only [facility] MEDICINE [address] [place], [place] [phone] Karen Guthrie MD [address] [place] [address] LUQ pain (Primary Dx); Epigastric [...] Description 07/01/2025 1:30 PM EST Office Visit [facility] MEDICINE [address] [place] [address] Karen Guthrie MD [address] [place] [address] 07/25/2025 9:30 AM EST Office Visit [facility] OPTOMETRY [address] [place] [address] Robert, Yocasta, OD [address] [place] [address] Scheduled Orders Name Type Priority Associated Diagnoses Orde r Schedule CT Abdomen Pelvis w/ Contrast Imaging STAT LUQ pain Epigastric pain Expected: 01/02/2023, Expires: 01/03/2024 documented as of this encounter Visit Diagnoses Diagnosis LUQ pain- Primary Abdominal pain, left upper quadrant Epigastric pain Abdominal pain, epigastric documented in this encounter Care Teams Tire Rebuilder Relationship Specialty Start Date End Date Karen Guthrie MD [address] [place] [address] PCP - General Family Medicine 07/15/22 documented as of this encounter
--- OUTSIDE RECORDS SUMMARY | 2025-05-25 10:31 | XMS_ITS | Encounter Summary ---
Author Organization [facility] Address [address] [place] [address] Care Team Providers Care Railroad Surveyor Name Role Phone Karen Guthrie MD Primary Care Provider [phone] Encounter Details Date Type Department Care Team ([facility] Contact Info) Description 05/25/2025 Orders Only GENERIC EXTERNAL DATA [...] Description 07/01/2025 1:30 PM EST Office Visit [facility] MEDICINE [address] [place] [address] Karen Guthrie MD [address] [place] [address] 07/25/2025 9:30 AM EST Office Visit [facility] OPTOMETRY [address] [place] [address] Robert, Yocasta, OD [address] [place] [address] documented as of this encounter Procedures Procedure Name Priority Date/Time Associated Diagnosis Comments PROTHROMBIN TIME-INR Routine 05/25/2025 9:57 AM EDT PLATELET COUNT Routine 05/25/2025 9:57 AM EDT documented in this encounter Results * Prothrombin Time-INR (05/25/2025 9:57 AM EDT) Prothrombin Time 11.9 10.9 - 12.4 SEC [facility] INTERNATIONAL NORM RATIO 1.0 0.9 - 1.1 [facility] Comment:INTERNATIONAL NORMAL IZED RATIO (INR) REFERENCE [...] ORDERAB LES Final Result Performing Organization Address [facility] de Phone Number [facility] [address] [place] [phone] * Platelet Count (05/25/2025 9:57 AM EDT) Platelet Count 248 160 - 400 X10*3/uL [facility] 05/25/2025 9:57 AM EDT 05/25/2025 10:18 AM EDT Generic External Data Provider LAB BLOOD ORDERAB LES Final Result Performing Organization Address [facility] de Phone Number [facility] [address] [place] [phone] documented in this encounter Visit Diagnoses Not on filedocumented in this encounter Additional Health Concerns Assessment Noted Time PHQ-9 Depression Total Score: 21 11/05/2 025 10:33 AM EDT documented as of this encounter Care Teams Railroad Surveyor Relationship Specialty Start Date End Date Karen Guthrie MD [address] [place] [address] PCP - General Family Medicine 07/15/22 documented as of this encounter
[2025-05-25 11:28] LABS: Alanine Aminotransferase 30 U/L (0-31); Albumin Level 4.6 g/dL (3.5-5.0); Alkaline Phosphatase 91 U/L (39-117); Aspartate Amino Transferase 28 U/L (5-31); Gamma Glutamyl Transpeptidase 104 U/L (7-33); Total Protein 7.4 g/dL (6.5-8.0)
[2025-05-25 11:37] LABS: Ferritin 51 ng/mL (10-250)
[2025-05-27 12:29] LABS: Anti Nuclear Antibody Screen NEGATIVE (NEGATIVE)
[2025-05-30 23:38] LABS: FIB-ALT 25 U/L (6-29); FIB-Alpha-2-Macroglobulin 390 mg/dL (106-279); FIB-Apolipoprotein A1 195 mg/dL (101-198); FIB-GGT 87 U/L (3-65); FIB-Haptoglobin 261 mg/dL (43-212); FIB-Total Bilirubin 0.3 mg/dL (0.2-1.2); Liver Fibrosis Score 0.35; Liver Fibrosis Stage F1-F2; Nec Inflam Act Grade A0; Nec Inflam Act Score 0.12
== END 2025-05-25 09:38 | disposition home or self-care (01) ==
LOC: HO.LAB 09:37
PROVIDERS: PCP General Practice; Visit Provider Nurse Practitioner Family
DX: E11.9 Type 2 diabetes mellitus without complications (principal); K76.0 Fatty (change of) liver, not elsewhere classified; K58.9 Irritable bowel syndrome, unspecified; R79.89 Other specified abnormal findings of blood chemistry; R74.8 Abnormal levels of other serum enzymes; R74.01 Elevation of levels of liver transaminase levels; R10.9 Unspecified abdominal pain; Z13.9 Encounter for screening, unspecified
CPT/HCPCS: 36415; 80076; 81596; 82105; 82390; 82728; 82947; 82977; 83036; 85049; 85610; 86015; 86038; 86140; 86364; 86381; 99212

== ENCOUNTER 2025-05-25 10:09 | Outpatient (AMB) | payer OTHER, SELFPAY ==
[2025-05-25 10:14] VITALS: BP 100/62; PULSE 101; O2SAT 97; BMI 25.3
--- NOTE | 2025-05-25 10:14 | A.OFFVIS_ITS ---
Vital Signs 05/25/25 10:14 Height 5 ft 4 in Weight 147 lb 4.301 oz BMI 25.3 BP 100/62 Blood Pressure Location Lt brachial Position Sitting Pulse 101 H Pulse Source Pulse Oximeter Pulse Oximetry (%) 97 Oxygen Delivery Method Room Air Intake Visit Reasons: T2DM Intake Note: Patient present today to follow up on Type 2 Diabetes Mellitus. Last Diabetic Eye exam: Last exam was in 04/2025 Last Podiatry Visit: Last seen in August 2024. Random Glucose: 174mg/dl Hgb A1C: 8.8% Employment Appeals Examiner Required: Yes Employment Appeals Examiner Language: Floor Service Worker [employer]: Employment Appeals Examiner Present Employment Appeals Examiner Name: Niharika Information Interpreted: non-clinical & clinical Accompanied by: Self / Same As Patient Allergies Penicillins (PENICILLINS) Allergy (Intermediate, Verified 05/25/25 10:21) ITCH/RASH sulfamethoxazole (From Bactrim) Allergy (Intermediate, Verified 05/25/25 10:21) RASH sumatriptan Allergy (Intermediate, Verified 05/25/25 10:21) rash trimethoprim (From Bactrim) Allergy (Intermediate, Verified 05/25/25 10:21) RASH pepperoni Allergy (Intermediate, Uncoded 05/25/25 10:21) rash HPI Comments Details: 69 YO F who is seen in follow up for T2DM. She was last seen by Yuliya Pulido NP 01/13/25 Initially diagnosed with T2DM in >10 yrs. Previous medications: Trulicity and regular strength metformin GI intolerability, declined trial on extended release metformin Was initially started on treatment with metformin. Trulicity: diarrhea and bloating. Tried freestyle 3: She felt technology was too complicated. jardiance 10 mg QD metformin 1000 mg QD Tresiba 52 units NovoLog 18 units tid Khalif download shows she is using the sensor a 2% of the time. Average glucose is 215 with G mi of 8.5% and variability 32.2%. 37% range with 35% hyp erglycemia 28% very hypoglycemic and no hypoglycemia. Pen shows elevation in point of care after breakfast would sustain hyperglycemia throughout the afternoon and decreases around dinner Denies hypoglycemia Family history of type 2 diabetes +Retinopathy: Has eyes checked yearly, last eye exam 2 mos ago has retinopathy +neuropathy: Numbness and tingling, no cramping in the lower extremity does not see podiatry but has in the past and had foot surgery. some pain related to foot surgery +nephropathy, on losartan Has HLD, on statin. Most recent LDL 08/2023 46 Denies CAD. Family history of type 2 diabetes +Retinopathy: Has eyes checked yearly, last eye exam has appt 09/2023 has appt 10/19 +neuropathy: Numbness and tingling, no cramping in the lower extremity does not see podiatry but has in the past and had foot surgery. some pain related to foot surgery +nephropathy, on losartan Has HLD, on statin. Most recent LDL 08/2023 46 Denies CAD. Followed by GI now for fatty liver [facility] screen Fibrosis-4 (Fib-4) Index for liver fibrosis (calculated on lab work done: 11/2023 ) 1.08 points Advanced fibrosis excluded Approximate Fibrosis stage Caleb [0-1] *Use with caution in patients <35 or >65 years old, as the score has been shown to be less reliable in these patients. Prior Imaging Ultrasound: LIVER: Hepatomegaly with right hepatic lobe measuring 17.8 cm. Left hepatic lobe measures 14.1 cm. Increased hepatic parenchymal heterogeneity and echogenicity could be associated with hepatocellular disease/hepatic steatosis and severely limits visualization. Correlation with liver function tests and clinical exam recommended to determine further management. ] Date of Service: 07/07/24 Procedure(s): US abdomen aguilar w elastography Accession Number(s): [id number] cc: Karen Guthrie; Yuliya Clayton RAILCAR CARPENTER~ EXAMINATION: US ABDOMEN LIMITED WITH LIVER ELASTOGRAPHY CLINICAL INFORMATION: Fatty liver COMPARISON: Ultrasound abdomen 11/24/2023 TECHNIQUE: Real-time imaging of the abdominal viscera. Noninvasive ultrasound liver fibrosis assessment is performed using Corie ElastPQ point quantification shear wave elastography (pSWE) with a 5 MHz transducer. Multiple elastography samples are obtained. FINDINGS: PANCREAS: The visualized pancreatic head and body are normal in appearance. The remainder of the pancreas is obscured from visualization by the overlying bowel gas. LIVER: The liver demonstrates normal size and contour but with increased echogenicity. No focal lesion or intrahepatic biliary duct dilatation. The right lobe measures 16.9 cm in length. The left lobe measures 12.0 cm in length. Shear wave elastography provides a median stiffness of 2.35 m/s (reference: normal median stiffness is 0.81 - 1.22 m/s). The IQR/median stiffness to assess sampling precision is 0.08 (reference: optimal IQR/median stiffness is under 0.3). GALLBLADDER: The gallbladder contains a small sludge ball but is physiologically distended without evidence of stones, polyps, wall thickening or pericholecystic fluid. COMMON BILE DUCT: Normal in caliber measuring 0.3 cm in diameter. RIGHT KIDNEY: No hydronephrosis. There is a mid renal cyst 4 mm echogenic focus with twinkle artifact consistent with a nonobstructing stone. No focal parenchymal lesions. The kidney measures 13 cm in maximum dimension. FREE FLUID: None seen. US/US abdomen aguilar w elastography IMPRESSION: 1. Echogenic liver consistent with hepatic steatosis 2. Elastography: Liver elastography measurements are consistent with a high risk for clinically significant liver fibrosis (METAVIR Stage F3-F4). Saw nutitritionist at [facility] in the past. [facility] Medical History Fatty liver Nephropathy Pre-ulcerative corn or callous Abnormal colonoscopy Colon adenomas Nausea & vomiting Irritable bowel syndrome with constipation History of hyperopia Gastroenteritis Memory impairment Hyperlipidemia Hypertension Myalgia and myositis Urinary incontinence Diabetes mellitus Depression Anxiety Insomnia History of lipoma Surgical History History of carpal tunnel surgery Hx of cataract extraction Hx of right breast biopsy Hx of colonoscopy History of esophagogastroduodenoscopy (EGD) Hx of foot surgery History of back surgery Hx of total hysterectomy Family History Mother Diabetes Father Prostate cancer Social History Household Members: None Household Members Other:: none Housing: Apartment Do you presently have visiting nurse or other home services: Yes (TELEPHONE QUOTATION CLERK and VNA) Alcohol intake: never Patient Tobacco Use Status: Never used Tobacco service: No Current occupational status: disabled Sexual orientation: Straight/Heterosexual Physical Exam Vital Signs: Last Vital Signs Pulse 101 H 05/25/25 10:14 BP 100/62 05/25/25 10:14 Pulse Ox 97 05/25/25 10:14 Oxygen Delivery Method Room Air 05/25/25 10:14 BMI result Body Mass Index 25.3 Absence of Cushingoid features. Absence of acromegalic features. Neck exam reveals nl size thyroid about 15 gms. No thyroid nodules palpable. No carotid bruits present. Lungs CTA. Heart S1 S2, Reg R/R. No M/R/ G. Skin exam reveals absence of vitiligo or acanthosis nigricans. Abdominal exam reveals Soft NT/ND with NA BS. No organomegaly present. Neck Other: . Extrem Other: Visual exam of foot performed. No ulcerations or open lesions. No onchomycosis, no callouses.Pulses 2 + distally Sensation intact to monofilament exam. Vibratory sensation sensed is decreased t with 128 Hz tuning fork Results AMB Hemoglobin A1c AMB Hemoglobin A1c 8.8 % Last Edit by TY Castillo on 05/25/25 10:40 Results Reviewed Results Reviewed: Laboratory Last Values Glucose (Clinic) 174 mg/dL (60-115) H 05/25/25 10:22 Hgb A1c (Clinic) 8.8 % (4.0-6.0) H 05/25/25 10:25 Assessment & Plan Assessment & Plan (1) Diabetes mellitus: Code(s): E11.9 - Type 2 diabetes mellitus without complications Category: Medical Plan: This is a 69-year-old female with a history of type 2 diabetes being treated with metformin, Jardiance and basal-bolus with poor deteriorated glycemic control and known microvascular complications namely microalbuminuria. Plan is to talk to the patient about starting alternative G LP 1 namely Mounjaro as patient could not tolerate Trulicity. Went over side effects of Mounjaro with patient using hazardous materials waste technician including nausea, vomiting and rare risk of pancreatitis. Asked patient to report any hypoglycemia to adjust her insulin regimen. We will have patient follow up with primary care diabetes team in in 2 months Orders: Orders AMB Hemoglobin A1c Today E11.9 - Type 2 diabetes mellitus without compl ications, Z13.9 - Encounter for screening, unspecified Medications: New Mounjaro (tirzepatide) for 4 weeks 2.5 mg (0.5 mL) subcut QWEEK 2 mL 4RF NS Coding Level of Care Code Est Pt Level 4 (64555) Complex EM visit Add On G2211 Diagnoses Diabetes mellitus E11.9
[2025-05-25 10:26] LABS: Glucose, Whole Blood 174 mg/dL (60-115)
== END 2025-05-25 10:48 | disposition home or self-care (01) ==
LOC: HO.ENCR 10:10
PROVIDERS: PCP Internal Medicine; Visit Provider Internal Medicine Endocrinology, Diabetes & Metabolism
DX: Z13.9 Encounter for screening, unspecified (principal); E11.9 Type 2 diabetes mellitus without complications
CPT/HCPCS: 99214; G2211

== ENCOUNTER 2025-07-14 09:04 | Outpatient (REF) | payer OTHER, SELFPAY ==
--- NOTE | ~2025-07-14 | US_ITS ---
EXAMINATION: US ABDOMEN LIMITED WITH LIVER ELASTOGRAPHY CLINICAL INFORMATION: Fatty liver COMPARISON: Ultrasound 07/07/2024 TECHNIQUE: Real-time imaging of the abdominal viscera. Noninvasive ultrasound liver fibrosis assessment is performed using Corie ElastPQ point quantification shear wave elastography (pSWE) with a 5 MHz transducer. Multiple elastography samples are obtained. FINDINGS: PANCREAS: The visualized pancreatic head and body are normal in appearance. The remainder of the pancreas is obscured from visualization by the overlying bowel gas. LIVER: The liver demonstrates normal size, contour. Increased parenchymal echogenicity. No focal lesion or intrahepatic biliary duct dilatation. The right lobe measures 15.5 cm in length. The left lobe measures 7.6 cm in length. Shear wave elastography provides a median stiffness of 1.46 m/s (reference: normal median stiffness is 0.81 - 1.22 m/s). The IQR/median stiffness to assess sampling precision is 0.25 (reference: optimal IQR/median stiffness is under 0.3). GALLBLADDER: The gallbladder is physiologically distended without evidence of stones, sludge, polyps, wall thickening or pericholecystic fluid. COMMON BILE DUCT: Normal in caliber measuring 0.2 cm in diameter. RIGHT KIDNEY: No hydronephrosis. No renal calculi or focal parenchymal lesions. The kidney measures 11.7 cm in maximum dimension. FREE FLUID: None seen. US/US abdomen aguilar w elastography IMPRESSION: 1. Hepatic steatosis. No suspicious liver lesions seen. 2. Elastography: Median stiffness of 1.46 m/s. (This previously measured 2.35 m/s (. *Liver Stiffness less than 1.7 m/s: In the absence of other known clinical signs, rules out compensated advanced chronic liver disease. REFERENCE: Society of Radiologists in Ultrasound Liver Stiffness Thresholds (2020): LIVER STIFFNESS THRESHOLDS: *Liver Stiffness equal or less than 1.3 m/s: High probability of being normal. *Liver Stiffness less than 1.7 m/s: In the absence of other known clinical signs, rules out compensated advanced chronic liver disease. *Liver Stiffness 1.7-2.1 m/s: Suggestive of compensated advanced chronic liver disease but need further test for confirmation. *Liver Stiffness over 2.1 m/s: Rules in compensated advanced chronic liver disease. *Liver Stiffness over 2.4 m/s: Suggestive of clinically significant portal hypertension. QUALITY OF DATA SET: *IQR/Median value equal or less than 0.15 implies a quality data set. *IQR/Median value over 0.15 implies a poor quality data set. SIGNIFICANT CHANGE FROM PRIOR EXAM: Significant change if liver stiffness measurement is 10% or greater from prior exam. OTHER CONSIDERATIONS: The stage of liver fibrosis may be overestimated in the setting of acute hepatitis, liver inflammation, elevated liver function tests, hepatic vascular congestion, obstructive cholestasis, non-fasting state, and infiltrative diseases such as amyloidosis and lymphoma. In some patients with NAFLD, the liver stiffness thresholds for compensated advanced chronic liver disease may be lower. In causes other than viral hepatitis and NAFLD, liver stiffness thresholds are not well established. Electronically signed by: Tomy Reina MD 07/15/2025 10:45 AM [facility]
--- OUTSIDE RECORDS SUMMARY | 2025-07-14 11:03 | XMS_ITS | Data Portability ---
Author Organization [facility] Address [address] [place] [address] Care Team Providers Care Museum Service Scheduler Name Role Phone Unavailable Referring Provider [phone] YASEMIN LAMBERT Primary Care Provider Assessment Encounter Date Assessment Date Assessment LastModified by Organization Details LastModified Time 10/18/2022 10/18/2022 I provided real -time medical direction via phone for this encounter, and was available for additional phone based assistance as needed. I have reviewed and agree with the Assessment and Plan as documented by the Ruling Technician. Patient given the opportunity to ask questions. [email or web address] Not available 10/18/2022 23:13:30 12/11/2022 12/11/2022 I provided real -time medical direction via phone for this encounter, and was available for additional phone based assistance as needed. I have reviewed and agree with the Assessment and Plan as documented by the Ruling Technician. Patient given the opportunity to ask questions. Advised if develops CP/severe SOB/ increased abd pain/uncontrolle d n/v/d or black/bloody emesis or stool/ AMS/ syncope/ hi fever to call 911- verbalized understanding of instructions [email or web address] Not available 12/11/2022 16:54:21 05/06/2023 05/06/2023 I provided real -time medical direction via phone for this encounter, and was available for additional phone based assistance as needed. I have reviewed the Assessment and Plan as documented by the Ruling Technician. Patient given the opportunity to ask questions. [email or web address] Not available 05/07/2023 10:28:45 Plan of Treatment Reminders Order Date Submit Date Provider Last Modified By Organization Details Last Modified Time Details Appointments None recorded. Lab BMP, serum or plasma 2022 023 [email or web address] 0 [facility], [address] [place] [address], [id number] 3 10:28:26 rapid SARS CoV 2 Ag, QL IA, respiratory specimen 2022 023 [email or web address] 0 [facility], [address] [place] [address], [phone] 3 10:28:26 rapid flu (A+B) 2022 023 [email or web address] 0 [facility], [address] [place] [address], [id number] 3 10:28:26 BMP, serum or plasma 2022 023 [email or web address] 0 [facility], [address] [place] [address], [id number] 3 17:09:27 urinalysis, dipstick 2022 023 [email or web address] 0 [facility], [address] [place] [address], [address] [place] [address] 3 23:34:46 BMP, serum or plasma 2022 023 [email or web address] 0 [facility], [address] [place] [address], [id number] 3 23:34:46 Referral None recorded. Procedures None recorded. Surgeries None recorded. Imaging None recorded. Medication Orders sodium chloride 0.9 % intravenous solution [email or web address] [facility], [address] [place] [address], [id number], 3 10:28:26 ondansetron HCl (PF) 4 mg/2 mL injection solution 2022 [email or web address] [facility], [address] [place] [address], [id number], 3 10:28:26 ondansetron 4 mg disintegrat ing tablet 2022 023 [facility], [address] [place] [address], [id number], 3 17:01:14 sodium chloride 0.9 % intravenous solution 2022 [email or web address] [facility], [address] [place] [address], [id number], 3 17:09:27 ondansetron HCl (PF) 4 mg/2 mL injection solution [email or web address] [facility], [address] [place] [address], [id number], 3 17:09:27 sodium chloride 0.9 % intravenous solution 2022 023 [email or web address] 0 Not available 23:34:46 Patient TargetsNo targets recorded. Patient InstructionsNo instructions recorded. Reason for Referral None Reported. Results Created Date Observation Date Name Description Value Unit Range Abnormal Flag Note LastModifiedBy Organization Detail LastModifiedTime 10/18/1910/18/2022 urina lysis , dipst ick Leukocytes neg Not Available [facility] [address] [place] [address], [phone] 10/18/2022 23:20:01 10/18/19 23 10/18/2022 urina lysis , dipst ick Nitrite negati ve Not Available [facility] [address], [address] 10/18/2022 23:20:01 10/18/19 23 10/18/2022 urina lysis , dipst ick Urobilinogen neg Not Available [facility] [address] [place] [address], [id number] 10/18/2022 23:20:01 10/18/19 23 10/18/2022 urina lysis , dipst ick Protein neg Not Available [facility] - [facility] [address], [address] 10/18/2022 23:20:01 10/18/19 23 10/18/2022 urina lysis , dipst ick pH 6.5 Not Available [facility] [address], [address] 10/18/2022 23:20:01 10/18/19 23 10/18/2022 urina lysis , dipst ick Blood neg Not Available [facility] [address], [address] [place] [address] 10/18/2022 23:20:01 10/18/19 23 10/18/2022 urina lysis , dipst ick Specific [place] 1;025 Not Available [facility] [address] [place] [address], [address] [place] [address] 10/18/2022 23:20:01 10/18/19 23 10/18/2022 urina lysis , dipst ick Ketone trace Not Available [facility] [address], [address] [place] [address] 10/18/2022 23:20:01 10/18/19 23 10/18/2022 urina lysis , dipst ick Bilirubin trace Not Available Main - I [address], [address] [place] [address] 10/18/2022 23:20:01 10/18/19 23 10/18/2022 urina lysis , dipst ick Glucose negati ve Not Available [facility] [address] [place] [address], [address] [place] [address] 10/18/2022 23:20:01 10/18/19 23 10/18/2022 urina lysis , dipst ick Appearance clear Not Available [facility] [address] [place] [address], [address] [place] [address] 10/18/2022 23:20:01 10/18/19 23 10/18/2022 urina lysis , dipst ick Color yelllo w Not Available [facility] [address] [place] [address], [address] [place] [address] 10/18/2022 23:20:01 10/18/19 23 10/18/2022 BMP, serum or plasm a BUN 8 Not Available [facility] [address], [address] [place] [address] 10/18/2022 23:20:03 10/18/19 23 10/18/2022 BMP, serum or plasm a Ca I az = 1.21 Not Available [facility] [address] [place] [address], [address] [place] [address] 10/18/2022 23:20:03 10/18/19 23 10/18/2022 BMP, serum or plasm a CI- 102 Not Available [facility] - [facility] [address], [address] [place] [address] 10/18/2022 23:20:03 10/18/19 23 10/18/2022 BMP, serum or plasm a CRE 0.5 Not Available [facility] - [facility] [address], [address] [place] [address] 10/18/2022 23:20:03 10/18/19 23 10/18/2022 BMP, serum or plasm a GLU 100 Not Available [facility] [address], [address] [place] [address] 10/18/2022 23:20:03 10/18/19 23 10/18/2022 BMP, serum or plasm a K+ 4 Not Available [facility] - [facility] [address], [address] [place] [address] 10/18/2022 23:20:03 10/18/19 23 10/18/2022 BMP, serum or plasm a Na+ 138 Not Available [facility] [address], [address] [place] [address] 10/18/2022 23:20:03 10/18/19 23 10/18/2022 BMP, serum or plasm a tCO2 25 Not Available [facility] - [facility] [address], [address] [place] [address] 10/18/2022 23:20:03 12/12/19 23 12/11/2022 BMP, serum or plasm a BUN 11 Not Available [facility] [address], [address] [place] [address] 12/11/2022 17:06:59 12/12/19 23 12/11/2022 BMP, serum or plasm a Ca I az 1.26 Not Available Main - [address], [address] [place] [address] 12/11/2022 17:06:59 12/12/19 23 12/11/2022 BMP, serum or plasm a CI- 106 Not Available [facility] [address], [address] [place] [address] 12/11/2022 17:06:59 12/12/19 23 12/11/2022 BMP, serum or plasm a CRE 0.6 Not Available [facility] [address], [address] [place] [address] 12/11/2022 17:06:59 12/12/19 23 12/11/2022 BMP, serum or plasm a GLU 146 Not Available [facility] [address], [address] [place] [address] 12/11/2022 17:06:59 12/12/19 23 12/11/2022 BMP, serum or plasm a K+ 3.9 Not Available [facility] [address], [address] [place] [address] 12/11/2022 17:06:59 12/12/19 23 12/11/2022 BMP, serum or plasm a Na+ 140 Not Available [facility] [address], [address] [place] [address] 12/11/2022 17:06:59 12/12/19 23 12/11/2022 BMP, serum or plasm a tCO2 19 Not Available [facility] [address], [address] [place] [address] 12/11/2022 17:06:59 05/06/20 23 05/06/2023 rapid flu (A+B) Flu negati ve Not Available [facility] [address] [place] [address], [address] [place] [address] 05/06/2023 12:56:53 05/06/2005/06/2023 rapid SARS CoV 2 Ag, QL IA, respi rator y speci men rapid SARS CoV 2 Ag, QL IA, respiratory specimen negati ve Not Available [facility] [address] [place] [address], [address] [place] [address] 05/06/2023 12:56:51 05/07/2005/07/2023 BMP, serum or plasm a BUN 14 Not Available [facility] - [facility] [address], [address] [place] [address] 05/06/2023 12:56:14 05/07/2005/07/2023 BMP, serum or plasm a Ca I AZ 5(nl) Not Available [facility] [address] [place] [address], [address] [place] [address] 05/06/2023 12:56:14 05/07/2005/07/2023 BMP, serum or plasm a CI- 103 Not Available [facility] [address], [address] [place] [address] 05/06/2023 12:56:14 05/07/2005/07/2023 BMP, serum or plasm a CRE 0.54 Not Available [facility] [address], [address] 05/06/2023 12:56:14 05/07/20 23 05/07/2023 BMP, serum or plasm a GLU 163 Not Available [facility] [address], [address] 05/06/2023 12:56:14 05/07/20 23 05/07/2023 BMP, serum or plasm a K+ 4.5 Not Available [facility] [address], [address] 05/06/2023 12:56:14 05/07/2005/07/2023 BMP, serum or plasm a Na+ 139 Not Available [facility] [address], [address] 05/06/2023 12:56:14 05/07/2005/07/2023 BMP, serum or plasm a tCO2 23 Not Available [facility] [address], [address] 05/06/2023 12:56:14 Result Notes None recorded. Medical Equipment None Reported. Allergies Allergen ID Allergen Name Allergen Category Reaction Reaction Severity Criticality Documentation Date Start Date Code Code System Note Provider Name and Address Organization Details Recorded Time 1956 Product containin g angiotens in-conver ting enzyme inhibitor (product) medicatio n cough Not available Not available 10/18/2022 38661 009 SNOMED Ale Mendoza MD [address] [place] [address],[address], [place], [address], [facility] 3 22:57:07 1958 Bactrim medicatio n Not available Not available Not available 10/18/2022 53490 9 RxNorm Ale Mendoza MD [address] [place] [address],[address], [place], [address], [employer] 3 22:57:21 1959 Product containin g penicilli n (product) medicatio n Not available Not available Not available 10/18/2022 37578 8001 SNOMED Not Available [facility] - production 4 03:47:40 8911 aspirin medicatio n Not available Not available Not available 06/22/2024 1191 RxNorm Not Available [facility] - production 4 03:47:40 8912 omeprazol e medicatio n Not available Not available Not available 06/22/2024 7646 RxNorm Not Available [facility] 4 03:47:40 Medications Name Sig Start Date [...] Available No t Available [employer] [place] USE TO TEST BLOOD SUGAR THREE TIMES DAILY AND NEEDED active Not Available Not Available No t Available Vitals Date Recorded Body weight Provider Name an d Address Organization Details Last Updated DateTime 10/18/2022 73291.22 g Kristy Acosta [address] [place] [address],[address] [facility], [place], [address], [place] [employer] 10/18/2022 23:07:43 Date Recorded Body temperature Heart rate Oxygen saturation Respiratory rate Heart rate Body temperature Oxygen saturation Respiratory rate Systolic And Diastolic Systolic And Diastolic Provider Name and Address Organization Details Last Updated DateTime 3 98 [degF] 87 /min 98 % 16 /min 87 /min 98 [degF] 98 % 16 /min 148/82 mm[Hg] 148/82 mm[Hg] Not Available [employer] [facility] [employer] 3 12:02:20 Date Recorded Respiratory rate Body temperature Heart rate Body weight Oxygen saturation Body height Body temperature Body weight Heart rate Respiratory rate Body height Oxygen saturation Provider Name and Address Organization Details Last Updated DateTime 3 18 /min 98.6 [degF] 100 /min 31590.8 g 98 % 157.48 cm 98.6 [degF] 70347.8 g 100 /min 18 /min 157.48 cm 98 % Not Available [facility] - production 3 13:15:40 Date Recorded Systolic And Diastolic Systolic And Diastolic Provider Name and Address Organization Details Last Updated DateTime 12/11/2022 135/87 mm[Hg] 135/87 mm[Hg] Not Available [facility] - production 12/11/2022 13:15:40 Date Recorded Body weight Respiratory rate Heart rate Body height Body temperature Oxygen saturation Systolic And Diastolic Provider Name and Address Organization Details Last Updated DateTime 3 02488.6 4 g 16 /min 94 /min 162.56 cm 98 [degF] 95 % 138/83 mm[Hg] Not Available [facility] - production 3 12:51:48 Social History None recorded. Functional Status None recorded. Mental Status None recorded. Family History Nothing Reported. Medical History No medical history recorded. Gynecological HistoryNo gynecological history recorded. Obstetrics History GPAL:G 0 P 0 0 0 0 Past Encounters Encounter ID Performer Location Encounter Start Date Encounter Closed Date Diagnosis/Indication Diagnosis SNOMED-CT Code Diagnosis ICD10 Code Diagnosis IMO Codes Diagnosis Note [id number] Ale Mendoza MD [facility] [address] [place] [phone] 10/18/2022 11:17:31 10/21/2022 09:40:55 Gastroenteritis 56707071 K52.9 w/ GERD- advised BRAT/ bland diet- [...] a lot better after iv f/ meds [id number] Ale Mendoza MD [facility] [address] [place] [phone] 12/11/2022 11:50:55 12/13/2022 09:41:45 Abdominal pain 42516157 R10.9 w/ n/v/d- advised to hold the [...] lo threshold for going to the ED [id number] Ale Mendoza MD [facility] [address] [place] [phone] 05/06/2023 12:51:33 05/07/2023 11:54:31 Abdominal pain 37632411 R10.9 w/ n/v/d- significan t abd distention and very elevated lactate- although remainder labs nl/ vss - concern for SBO/ risk for perforatio n/ intra-abdo bhanu infection/ early sepsis- advised needs imaging and further emergent eval / treatment in the ED- patient agreeable- report called to [place] [facility]. S medic arrived for EMS so [facility] medic rode in to continue IVF en route to the ER. Health Concerns Section Related Observation LastModified by Organization Detai ls LastModified Time None Recorded Concern Status LastModified by Organization Details LastModified Time None Recorded Advance Directives Directive None Recorded Payers Insurance Date Sequence Insurance Name Policy Number Policy Javier Covered Member ID Javier Member ID Guarantor Name 05/06/2023 1 [facility] - DOS PRIOR TO 2022 - DUAL ELIGIBLE (MEDICARE REPLACEMENT/ADV ANTAGE - HMO) Jacki Baker [id number] Jacki Baker 05/05/2024 1 [facility] - DOS ON OR AFTER 2022 - DUAL ELIGIBLE - [facility] OPTIONS AND ONE CARE (MEDICARE REPLACEMENT/ADV ANTAGE - HMO) Jacki Baker [id number] Jacki Baker Notes Date Note Type Note Provider Name and Address Organization Details Recorded Time 10/18/2022 text/html ROS as noted in the HPI HPI: MULTIPLE ALLERGIES; ASA, KACI INHIBITORS, OMEPRAZOLE, [...] ..................... ..................... ..................... ..................... ..................... ..................... ............... Ruling Technician Note From Elias Washington: PT c/o n/v/d x2 weeks, states that it s a p robable gastroenteritis episode. Pt notes 10/10 abd pain. B/s normal [...] and given 15mg Toradol ordered and given Ruling Technician Allergies: Aspirin, Omeprazole, Penicillin ..................... ..................... ..................... [...] with these spells. Ale Mendoza MD [address] [facility],[address], [place], [address], [employer] 10/18/2022 23:36:31 12/11/2022 text/html ROS as noted in the HPI HPI: Call to Jacki Baker, reports being [...] ..................... ..................... ..................... ..................... ..................... ..................... ............... Ruling Technician Note From Steve Lozoya: Pt answers door, [...] IV, zofran 4mg IV 2 BMP to [facility] via portal. Pt advised by [facility] to stop taking antibiotics until she can talk to her PCP, eat only BRAT diet (explained) and drink clear liquids. Red flags and pt education discussed. Ruling Technician Allergies: Aspirin, Omeprazole, Penicillin, Trimethoprim-Sulfamet hoxazole ..................... [...] denies UTi s/s Ale Mendoza MD [address] [facility],[address], [place], [address], [employer] 12/11/2022 17:10:18 05/06/2023 text/html ROS as noted in the HPI HPI: Vomiting and wants to make sure she is not dehydrated>has been experiencing symptoms for about 3 days. ..................... ..................... ..................... ..................... ..................... ..................... ............... [facility] Nursing Assessment: Comments: Requestor unable to give additional details. ..................... ..................... ..................... ..................... ..................... ..................... ............... Ruling Technician Note From Silvano Garcia: Pt reports n/v/d for three days. Pt denies CP, SOB, fevers, chills, hematochezia, hematemesis. Pt is alert, NAD. VSS. Afebrile. Neuro exam and gait normal. Lungs CTA. ABD is distended and tender in epigastric region. + BS x4. No LLE. Rapid covid and flu negative. POC BMP lactate 36.2. [facility] contacted and advised pt be seen in ED. 911 initiated. Normal saline 500 mg IV and Ondansetron 4 mg IVP administered en route to [place] ED. [facility] automotive collision estimator maintained all pt care until transfer of care to [place] RN. [facility] Lab Orders: BMP, serum or plasma: Performed rapid SARS CoV 2 Ag, QL IA, respiratory specimen: Performed rapid flu (A+B): Performed ..................... ..................... ..................... ..................... ..................... ..................... ............... Disposition: Fulfilled Ale Mendoza MD [address] [place] [address],[address] [facility], [place], [phone], [employer] 05/07/2023 10:32:09 OBGyn Episode No OBEpisode recorded.
== END 2025-07-14 09:05 | disposition home or self-care (01) ==
LOC: HO.US 09:04
PROVIDERS: PCP General Practice; Visit Provider Nurse Practitioner Family
DX: K76.0 Fatty (change of) liver, not elsewhere classified (principal)
CPT/HCPCS: 76705; 76981

== ENCOUNTER → 2025-07-14 09:06 | Outpatient (BNV) | payer OTHER, SELFPAY | PROVIDERS: PCP General Practice; Visit Provider Radiology Diagnostic Ultrasound | DX: K76.0 Fatty (change of) liver, not elsewhere classified (principal) | CPT/HCPCS: 76705 ==

== ENCOUNTER 2025-08-01 10:12 | Outpatient (AMB) | payer OTHER, SELFPAY ==
--- NOTE | 2025-08-01 10:14 | A.OFFVIS_ITS ---
Vital Signs 08/01/25 10:23 Height 5 ft 4 in Weight 144 lb 9.972 oz BMI 24.8 BP 100/58 L Blood Pressure Location Lt brachial Position Sitting Pulse 104 H Pulse Source Pulse Oximeter Pulse Oximetry (%) 97 Oxygen Delivery Method Room Air Intake Visit Reasons: T2DM Intake Note: Patient present today to follow up on Type 2 Diabetes Mellitus. Patient states she d/c'ed Mounjaro approx 2 weeks ago due to upset GI. Last Diabetic Eye exam: Last exam was in 04/2025 Last Podiatry Visit: Last seen in August 2024. Random Glucose: 160 lmg/dl Hgb A1C: 8.8% 05/25/2025 Cash Sales Audit Clerk Required: Yes Cash Sales Audit Clerk Language: [employer] Services: Cash Sales Audit Clerk Present Cash Sales Audit Clerk Name: [facility] [place]- [place] Information Interpreted: non-clinical & clinical Accompanied by: Self / Same As Patient Allergies Penicillins (PENICILLINS) Allergy (Intermediate, Verified 08/01/25 10:32) ITCH/RASH sulfamethoxazole (From Bactrim) Allergy (Intermediate, Verified 08/01/25 10:32) RASH sumatriptan Allergy (Intermediate, Verified 08/01/25 10:32) rash trimethoprim (From Bactrim) Allergy (Intermediate, Verified 08/01/25 10:32) RASH pepperoni Allergy (Intermediate, Uncoded 08/01/25 10:32) rash HPI Comments Details: 69 YO F who is seen in follow up for T2DM. Initially diagnosed with T2DM in >10 yrs. Previous medications: Trulicity and regular strength metformin GI intolerabi lity, declined trial on extended release metformin Was initially started on treatment with metformin. Trulicity: diarrhea and bloating. Tried freestyle 3: She felt technology was too complicated. jardiance 10 mg QD metformin 1000 mg QD , Mounjaro 2.5 mg Qwkly -could not tolerate due to GI side effects Tresiba 52 units NovoLog 18 units tid Khalif download shows she is using the sensor a 81% of the time. Average glucose is 142 with G mi of 6.7% and variability 28.6%. 83% range with 15% hyperglycemia 2% very hypoglycemic and no hypoglycemia. has occasional hypoglycemia Family history of type 2 diabetes +Retinopathy: Has eyes checked yearly, last eye examhas appt 08/2025 has retinopathy +neuropathy: Numbness and tingling, no cramping in the lower extremity does not see podiatry but has in the past and had foot surgery. some pain related to foot surgery +nephropathy, on losartan Has HLD, on statin. Most recent LDL 08/2023 46 Denies CAD. Family history of type 2 diabetes +Retinopathy: Has eyes checked yearly, last eye exam has appt 10/19 +neuropathy: Numbness and tingling, no cramping in the lower extremity does not see podiatry but has in the past and had foot surgery. some pain related to foot surgery +nephropathy, on losartan Has HLD, on statin. Most recent LDL 08/2023 46 Denies CAD. Followed by GI now for fatty liver [facility] screen Fibrosis-4 (Fib-4) Index for liver fibrosis (calculated on lab work done: 11/2023 ) 1.08 points Advanced fibrosis excluded Approximate Fibrosis stage Caleb [0-1] *Use with caution in patients <35 or >65 years old, as the score has been shown to be less reliable in these patients. Prior Imaging Ultrasound: LIVER: Hepatomegaly with right hepatic lobe measuring 17.8 cm. Left hepatic lobe measures 14.1 cm. Increased hepatic parenchymal heterogeneity and echogenicity could be associated with hepatocellular disease/hepatic steatosis and severely limits visualization. Correlation with liver function tests and clinical exam recommended to determine further management. ] Date of Service: 07/07/24 Procedure(s): US abdomen aguilar w elastography Accession Number(s): [id number] cc: Karen Guthrie; Yuliya Clayton LEAD LAYING AND GLUING MACHINE OPERATOR~ EXAMINATION: US ABDOMEN LIMITED WITH LIVER ELASTOGRAPHY CLINICAL INFORMATION: Fatty liver COMPARISON: Ultrasound abdomen 11/24/2023 TECHNIQUE: Real-time imaging of the abdominal viscera. Noninvasive ultrasound liver fibrosis assessment is performed using Corie ElastPQ point quantification shear wave elastography (pSWE) with a 5 MHz transducer. Multiple elastography samples are obtained. FINDINGS: PANCREAS: The visualized pancreatic head and body are normal in appearance. The remainder of the pancreas is obscured from visualization by the overlying bowel gas. LIVER: The liver demonstrates normal size and contour but with increased echogenicity. No focal lesion or intrahepatic biliary duct dilatation. The right lobe measures 16.9 cm in length. The left lobe measures 12.0 cm in length. Shear wave elastography provides a median stiffness of 2.35 m/s (reference: normal median stiffness is 0.81 - 1.22 m/s). The IQR/median stiffness to assess sampling precision is 0.08 (reference: optimal IQR/median stiffness is under 0.3). GALLBLADDER: The gallbladder contains a small sludge ball but is physiologically distended without evidence of stones, polyps, wall thickening or pericholecystic fluid. COMMON BILE DUCT: Normal in caliber measuring 0.3 cm in diameter. RIGHT KIDNEY: No hydronephrosis. There is a mid renal cyst 4 mm echogenic focus with twinkle artifact consistent with a nonobstructing stone. No focal parenchymal lesions. The kidney measures 13 cm in maximum dimension. FREE FLUID: None seen. US/US abdomen aguilar w elastography IMPRESSION: 1. Echogenic liver consistent with hepatic steatosis 2. Elastography: Liver elastography measurements are consistent with a high risk for clinically significant liver fibrosis (METAVIR Stage F3-F4). Saw nutitritionist at [facility] in the past. Seeing GI for MALFD [facility] Medical History Fatty liver Nephropathy Pre-ulcerative corn or callous Abnormal colonoscopy Colon adenomas Nausea & vomiting Irritable bowel syndrome with constipation History of hyperopia Gastroenteritis Memory impairment Hyperlipidemia Hypertension Myalgia and myositis Urinary incontinence Diabetes mellitus Depression Anxiety Insomnia History of lipoma Surgical History History of carpal tunnel surgery Hx of cataract extraction Hx of right breast biopsy Hx of colonoscopy History of esophagogastroduodenoscopy (EGD) Hx of foot surgery History of back surgery Hx of total hysterectomy Family History Mother Diabetes Father Prostate cancer Social History Household Members: None Household Members Other:: none Housing: Apartment Do you presently have visiting nurse or other home services: Yes ([employer] and [facility]) Alcohol intake: never Patient Tobacco Use Status: Never used Tobacco service: No Current occupational status: disabled Sexual orientation: Straight/Heterosexual Physical Exam Vital Signs: Last Vital Signs Pulse 104 H 08/01/25 10:23 BP 100/58 L 08/01/25 10:23 Pulse Ox 97 08/01/25 10:23 Oxygen Delivery Method Room Air 08/01/25 10:23 BMI result Body Mass Index 24.8 Absence of Cushingoid features. Absence of acromegalic features. Neck exam reveals nl size thyroid about 15 gms. No thyroid nodules palpable. No carotid bruits present. Lungs CTA. Heart S1 S2, Reg R/R. No M/R/ G. Skin exam reveals absence of vitiligo or acanthosis nigricans. Abdominal exam reveals Soft NT/ND with NA BS. No organomegaly present. Neck Other: . Extrem Other: Visual exam of foot performed. No ulcerations or open lesions. No onchomycosis, no callouses.Pulses 2 + distally Sensation intact to monofilament exam. Vibratory sensation sensed is decreased t with 128 Hz tuning fork Results Reviewed Results Reviewed: Laboratory Last Values Glucose (Clinic) 160 mg/dL (60-115) H 08/01/25 10:25 Assessment & Plan Assessment & Plan (1) Diabetes mellitus: Code(s): E11.9 - Type 2 diabetes mellitus without complications Category: Medical Plan: This is a 69-year-old female with a history of type 2 diabetes being treated with metformin, Jardiance , Mounjaro and basal-bolus with excellent improved glycemic control and known microvascular complications namely microalbuminuria. Plan is to continue the current regimen. We will have patient follow up with primary care diabetes team in in 4 months Orders: Orders Lipid Panel Today E11.9 - Type 2 diabetes mellitus without complications Coding Level of Care Code Est Pt Level 4 (49325) Diagnoses Diabetes mellitus E11.9
[2025-08-01 10:23] VITALS: BP 100/58; PULSE 104; O2SAT 97; BMI 24.8
[2025-08-01 10:29] LABS: Glucose, Whole Blood 160 mg/dL (60-115)
== END 2025-08-01 10:49 | disposition home or self-care (01) ==
LOC: HO.ENCR 10:12
PROVIDERS: PCP General Practice; Visit Provider Internal Medicine Endocrinology, Diabetes & Metabolism
DX: E11.9 Type 2 diabetes mellitus without complications (principal)
CPT/HCPCS: 99214

== ENCOUNTER → 2025-08-01 10:12 | Outpatient (BNVA) | payer OTHER, SELFPAY | PROVIDERS: PCP General Practice; Visit Provider Internal Medicine Endocrinology, Diabetes & Metabolism | DX: E11.9 Type 2 diabetes mellitus without complications (principal); Z79.84 Long term (current) use of oral hypoglycemic drugs; Z79.4 Long term (current) use of insulin | CPT/HCPCS: 82947; 99212 ==